=== PATIENT | female | born 1985 | race Caucasian/White ===

== ENCOUNTER 2018-11-24 00:17 | Emergency (ER) | payer BC, SELFPAY ==
[2018-11-24 00:19] VITALS: BP 145/90; PULSE 88; RESP 18; TEMP 36.7; O2SAT 97; BMI 34.5
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
[2018-11-24 01:00] LABS: Absolute Lymphocyte Count 1.37 X10^3/uL (0.83-4.51); Absolute Neutrophil Count 9.9 X10^3/uL (2.0-7.7); Basophil# 0.07 X10^3/uL; Basophil% 0.6 % (0-1); Eosinophil# 0.08 X10^3/uL; Eosinophils% 0.7 % (0-5); Hematocrit 34.4 % (37-47); Hemoglobin 11.5 g/dL (12.0-15.0); Lymphocyte # 1.37 X10^3/ul (4.0); Lymphocyte % 11.5 % (19-41); Mean Corp Hgb Conc 33.4 g/dL (32-36); Mean Corpuscular Hgb 29.9 pg (27.0-32.0); Mean Corpuscular Volume 89.6 fL (81-99); Mean Platelet Vol. 9.5 fl (6.2-12.0); Monocyte# 0.49 X10^3/uL; Monocyte% 4.1 % (0-10); NRBC Flagged by Analyzer 0 % (0-5); Neutrophil % 82.8 % (47-70); Platelet Count 325 K/mm3 (150-450); RBC Distribution Width CV 12.3 % (11.6-14.6); RBC Distribution Width SD 39.5 fl (35.1-43.9); Red Blood Count 3.84 M/mm3 (4.2-5.4)
[2018-11-24] MEDS: 0.9% Normal Saline 1,000 ML 999 ML IV (01:02)
[2018-11-24] MEDS: LORazepam 2 MG/ML Syringe 1 MG IV ×2 (01:02→01:39)
[2018-11-24 01:06] LABS: Internal QC Validated? YES +Cl - CLEAR BKGD; Pregnancy, Urine Negative Negative
[2018-11-24 01:14] LABS: Alcohol, Blood (Medical)-Serum < 3.0 mg/dL
[2018-11-24 01:15] LABS: Anion Gap 9 (5-15); BUN 34 mg/dL (7-18); BUN/Creat Ratio 27.9 RATIO (10-20); Calcium,Total 9.3 mg/dL (8.5-10.1); Chloride 104 mmol/L (98-107); Creatinine, Serum 1.22 mg/dL (0.55-1.02); EST Glomerular Filtration Rate 54 mL/min (>60); Est Glom Filt Rate - Afr Amer 65 mL/min (>60); Estimated Creatinine Clearance 53.75 ml/min; Glucose 100 mg/dL (74-106); Sodium Level 138 mmol/L (136-145)
[2018-11-24 01:21] LABS: Amphetamine Urine VISTA POSITIVE (<1000 ng/mL); Barbiturate Urine VISTA NEGATIVE (< 200 ng/mL); Benzodiazepine Urine VISTA NEGATIVE (< 200 ng/mL); Cocaine Urine VISTA POSITIVE (< 300 ng/mL); Ecstacy Urine VISTA POSITIVE (< 500 ng/mL); Methadone Urine VISTA NEGATIVE (< 300 ng/mL); PCP Urine VISTA NEGATIVE (< 25 ng/mL); THC Urine VISTA POSITIVE (< 50 ng/mL); Vista UDS pH Range 5
[2018-11-24 01:40] VITALS: BP 94/72; PULSE 78; RESP 18; O2SAT 100
[2018-11-24 03:19] VITALS: BP 107/70; PULSE 64; RESP 15; O2SAT 97
== END 2018-11-24 03:20 | disposition home or self-care (01) ==
PROVIDERS: Emergency Provider Emergency Medicine
DX: F19.159 Other psychoactive substance abuse with psychoactive substance-induced psychotic disorder, unspecified (principal); F15.10 Other stimulant abuse, uncomplicated; F14.10 Cocaine abuse, uncomplicated; F12.10 Cannabis abuse, uncomplicated; F11.10 Opioid abuse, uncomplicated; F17.200 Nicotine dependence, unspecified, uncomplicated
CPT/HCPCS: 80048; 80307; 80320; 81025; 85025; 96361; 96374; 99283; A4216; G0480

== ENCOUNTER 2025-02-06 16:01 | Emergency (ER) | payer SELFPAY ==
[2025-02-06 16:03] VITALS: BP 133/91; PULSE 64; RESP 18; TEMP 36.6; O2SAT 100; BMI 30.7
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
--- NOTE | 2025-02-06 16:45 | ED.RN ---
3431- THIS RN WAS AT BEDSIDE WITH PATIENT WHEN ASKED MULTIPLE TIMES BY [facility] TROOPER IF SHE WOULD CONSENT TO A URINE TEST. SHE AGREED ALL TIMES WHEN ASKED. PT IS CONTINUOUSLY PULLING OFF MONITORING LEADS BUT LEAVING THE END TIDAL CO2 IN PLACE FOR PROPER RESPIRATORY MANAGEMENT. IT IS DISCUSSED WITH PATIENT TO DO A STRAIGHT CATH FOR URINE. SHE AGREED. WHEN THIS RN ALONG WITH TWO OTHERS TO ASSIST PULLED PATIENTS PANTS DOWN TO DO THE CATH, A SMALL BAG OF BROWN POWDER WAS IN THE VAGINAL FOLDS. [facility] WAS CALLED INTO THE ROOM. BAG WAS GIVEN TO TROOPERS. STRAIGHT CATH WAS COMPLETED. PT TOLERATED WELL. SAMPLE OBTAINED GIVEN TO [facility]. PT COVERED BACK UP. WILL CONTINUE TO MONITOR. DR. COVINGTON UPDATED.
--- NOTE | 2025-02-06 16:50 | ED.RN ---
verbal orders for cardiac monitoring and capnography to monitor pt. Pt is continuously moving in bed, pulling off cardiac leads. Dr. Guzman aware of pt movements and inability to monitor effectively.
[2025-02-06 17:01] VITALS: BP 127/68; PULSE 69; RESP 12; O2SAT 96
--- NOTE | 2025-02-06 17:04 | CM.ED ---
Social work SW made aware of patient's presentation due to overdose via [facility] escort. SW presented to patient's room and stood outside room in the hallway with [facility] Security. [facility] and director consumer affairs Alyssa in patient's room. SW introduced self to Henrietta from [facility] who was also standing outside patient's room. [facility]; SW to remain available as needed. Anne Ocampo, RESPIRATORY SUPERVISOR, PATTERNMAKER HELPER
--- NOTE | 2025-02-06 17:12 | ED.RN ---
THIS RN HAD DIFFICULTY KEEPING SMALL FEMALE STRAIGHT CATH IN TO EMPTY BLADDER ALL THE WAY DUE TO PATIENT MOVING HER LEGS. THE CATHETER DISLODGED AFTER OBTAINING THE SMALL SAMPLE GIVEN TO [facility]. PT STATES SHE STILL HAS TO PEE. DIFFERENT STRAIGHT CATH KIT USED FOR SECOND STRAIGHT CATH WITH A MORE FLEXIBLE AND LONGER CATHETER. BLADDER WAS ABLE TO BE FULLY EMPTIED WITH THIS CATH KIT.
[2025-02-06 17:14] LABS: Mucous, Urine 0 SEEN /hpf (<or=2+); Red Blood Cells-Urine 0 SEEN /hpf (0-5)
[2025-02-06 17:19] LABS: Color, Urine Yellow (Yellow); Glucose, Dipstick Normal (Normal); Ketone-Dipstick 5 mg/dl (Negative); Leukocyte Esterase-Dipstick 25 /ul (Negative); Nitrite-Dipstick Negative (Negative); Occult Blood-Urine Negative /ul (Negative); Protein-Dipstick 30 mg/dl (Negative); Specific Gravity, Urine 1.025 (1.002-1.030)
[2025-02-06 17:20] LABS: Urine Bilirubin Dipstick 1 mg/dL (Negative)
[2025-02-06 17:29] LABS: Squamous Epithelial Cells - UA 0-5 SEEN /hpf (5-10)
[2025-02-06 17:30] LABS: Calcium Oxalate Crystals Ur 1+ /hpf (<or=2+); Fine Granular Cast- Urine 0-5 SEEN /lpf (0-5)
[2025-02-06 18:06] LABS: Barbiturate Urine NEGATIVE (< 200 ng/mL); Benzodiazepine Urine PRESUMPTIVE POSITIVE (< 200 ng/mL); PCP Urine NEGATIVE (< 25 ng/mL); THC Urine PRESUMPTIVE POSITIVE (< 50 ng/mL)
--- NOTE | 2025-02-06 18:18 | ED.RN ---
Update given to Mom, Shayla, about pt status with charge entryKRYSTAL Scruggs @ bedside. Informed that pt will be observed until able to be awake enough to ambulate, and reevaluated by Dr. Guzman. Instructed that pt would need a safe ride home when discharged if pt is able to wake up enough. Informed about pt resources if pt desires them for detox programs, these forms are left @ bedside by [facility]. Shayla agreeable with pt treatment plan. Pt is asleep, unable to obtain vitals due to pt movements when being touched. Pt is able to continue to keep capnography on so pt can be monitored. Shayla phone number in case pt needs ride home
[2025-02-06 19:17] VITALS: BP 112/74; PULSE 71; RESP 18; TEMP 36.6; O2SAT 97; O2SAT 99
== END 2025-02-06 19:59 | disposition home or self-care (01) ==
PROVIDERS: Emergency Provider Emergency Medicine; Visit Provider Emergency Medicine
DX: T40.1X4A Poisoning by heroin, undetermined, initial encounter (principal); F11.10 Opioid abuse, uncomplicated; R40.4 Transient alteration of awareness; F17.210 Nicotine dependence, cigarettes, uncomplicated
CPT/HCPCS: 80307; 81001; 99285; P9612

== ENCOUNTER 2025-02-09 10:17 | Inpatient (IN) | payer SELFPAY ==
[2025-02-09 10:19] VITALS: BP 118/87; PULSE 77; RESP 16; TEMP 36.9; O2SAT 93; BMI 30.9
--- NOTE | 2025-02-09 10:35 | EX.ED.SAOD ---
HPI History of Present Illness Chief Complaint: Substance Abuse Narrative Narrative: 39-year-old female presents with her parents for detox from heroin. She relates history that she had previous opiate addiction since 2009, and was supposed to go to rehab a long time ago. She has been in touch with [facility] who recommend that she present to the emergency department for detox. She relays remote history that she had a thoracentesis for fluid around her lung and had been given previous IV Dilaudid and opiates. That triggered her relapse and she states that she has been snorting heroin for the last 3 to 4 months. She states she last used 30 hours ago. She denies any fevers or chills, no nausea or vomiting, no abdominal cramping or pain. She states that [facility] recommended that she present for detox today. PFSH PFS Medical History no medical history Home Medications ?Medication ?Instructions ?Recorded ?Last Taken ?Type No Known/Unobtainable [No Known 05/11/13 Unknown History Home Medications] Allergy/AdvReac Type Severity Reaction Status Date / Time No Known Allergies Allergy Verified 02/09/25 10:18 Family History no significant family his Surgical History History of appendectomy Surgical History no surgical history Social History Smoking Status: Heavy Smoker (>10/day) ROS ROS ED ROS Narrative Review of systems negative for abdominal pain, nausea, vomiting, no fevers or chills. Last heroin use 30 hours ago. Denies intravenous use, states he usually snorts heroin. EXAM Physical Exam Narrative Exam Narrative: Afebrile. Vital signs noted. Nontoxic-appearing. Cardiovascular examination feels a regular rate and rhythm. Lungs are clear to auscultation bilaterally. Abdomen is soft and nontender without guarding or rebound. Positive bowel sounds. Neurological examination nonfocal, nonlateralizing. Almost tearful on examination. Const Vital Signs: 02/09/25 10:19 Temperature 98.4 F Temperature Source Oral Pulse Rate 77 Respiratory Rate 16 Blood Pressure 118/87 H Blood Pressure Mean 97 Pulse Ox 93 Oxygen Delivery Method Room Air MDM MDM MDM Narrative Medical decision making narrative: I do not feel differential diagnosis is applicable here. She is here for detox from heroin/opiates. She does admit that she does use cannabinoids as well. Her last menstrual period was a month to a month and a half ago, but she had history of irregular periods. Medical screening labs will be obtained. Patient will be discussed with the hospitalist for admission for detox from opiates. I reviewed her laboratory work and she has normal white count at 9.3 with hemoglobin 14.2, platelet count normal at 282. BUN 14 and creatinine slightly elevated at 1.53. This has been elevated when compared to prior labs as well however. Glucose 131 with a normal anion gap of 14. LFTs are grossly normal. Serum test is negative. Urine for drugs of abuse positive for benzodiazepines, fentanyl, and opiates. Compared to labs 3 days ago, this is the same. This point in time, I feel she is medically cleared for admission for detox. I discussed the patient with Dr. Motta who will admit the patient to the general medical floor. Disposition is admitted in stable condition. History & Record Review Discussion w/independent historian: Patient Additional record(s) reviewed:: Prior ED visit (Seen in the emergency department 3 days ago, found to have opiates intravaginally, did not want detox at that time) Lab Data Attestation: I reviewed the patient's lab results. Labs: Laboratory Results - last 24 hr 02/09/25 02/09/25 11:06 11:18 WBC 9.3 RBC 4.71 Hgb 14.2 Hct 43.1 MCV 91.5 MCH 30.1 MCHC 32.9 RDW Std Deviation 41.8 RDW Coeff of [place]tan 12.4 Plt Count 282 MPV 10.0 Immature Gran % (Auto) 0.100 Neut % (Auto) 66.6 Lymph % (Auto) 26.8 [place] % (Auto) 5.9 Eos % (Auto) 0.2 Baso % (Auto) 0.4 Absolute Neuts (auto) 6.2 Absolute Lymphs (auto) 2.50 Nucleated RBC % 0 Sodium 143 Potassium 3.4 Chloride 101 Carbon Dioxide 27.9 Anion Gap 14 BUN 14 Creatinine 1.53 H Estim Creat Clear Calc 56.14 Est GFR (MDRD) Non-Af 44 L BUN/Creatinine Ratio 8.8 L Glucose 131 H Calcium 10.1 Total Bilirubin 0.63 AST 24 ALT 20 Alkaline Phosphatase 78 Total Protein 8.4 Albumin 4.3 Globulin 4.0 Albumin/Globulin Ratio 1.1 Serum , Qual NEGATIVE Urine Opiates Screen PRESUMPTIVE POSITIVE U Buprenorphine Qual NEGATIVE Ur Oxycodone Screen NEGATIVE Urine Methadone Screen NEGATIVE Urine Fentanyl Screen PRESUMPTIVE POSITIVE Ur Barbiturates Screen NEGATIVE Ur Phencyclidine Scrn NEGATIVE Ur Amphetamines Screen NEGATIVE U Benzodiazepines Scrn PRESUMPTIVE POSITIVE Urine Cocaine Screen NEGATIVE U Cannabinoids Screen PRESUMPTIVE POSITIVE Ethyl Alcohol < 10.1 Management Discussion w/another healthcare provider: Hospitalist (Dr. Motta) Discharge Plan Dx/Rx/DC Orders Clinical Impression: Opiate abuse, continuous, Desire for detoxification, Opiate addiction, Elevated serum creatinine Disposition Disposition: Acute Care Hospital [facility]
[2025-02-09 11:15] LABS: Hematocrit 43.1 % (37-47); Hemoglobin 14.2 g/dL (12.0-15.0); Immature Granulocytes Count 0.010 X10^3/uL (0.0-0.0); Mean Corp Hgb Conc 32.9 g/dL (32-36); Mean Corpuscular Volume 91.5 fL (81-99); Mean Platelet Vol. 10.0 fl (6.2-12.0); NRBC Flagged by Analyzer 0 % (0-5); Platelet Count 282 K/mm3 (150-450); RBC Distribution Width CV 12.4 % (11.6-14.6); RBC Distribution Width SD 41.8 fl (35.1-43.9); Red Blood Count 4.71 M/mm3 (4.2-5.4); White Blood Count 9.3 K/mm3 (4.4-11.0)
[2025-02-09 11:18] VITALS: PULSE 81; RESP 18; O2SAT 97
--- OUTSIDE RECORDS SUMMARY | 2025-02-09 11:28 | XMS RPT_ITS | CCD ---
Author Organization [facility] Care Team Providers Care [employer] Teacher Name Role Phone Unavailable Primary Care Provider Unavailabl e No, Physician Primary Care Provider Unavailabl e NO, PHYSICIAN Primary Care Unavailable RANDY GARBER Attending Unavailable CARLOS VICENTE Attending Unavailab KASSANDRA Handy Admitting Unavailable NO, PHYSICIAN Primary Care Unavailable RANDY GARBER Referring Unavailable MAIKEL RODRIGUEZ Consulting Unavailable ERUM MARCELO Consulting Unavailable Sky FLORENTINO, [facility] Primary Care Provider MELIV SWANSON Referring Unavailable SKY, MELVI Primary Care Unavailable SWANSON, MELVI Primary Care Unavailable SWANSON, MELIV Attending Unavailable SWANSON, MELVI Primary Care Unavailable SWANSON, MELVI Referring Unavailable SWANSON, MELVI Attending Unavailable SWANSON, MELVI Referring Unavailable SWANSON, MELVI Primary Care Unavailable SWANSON, MELVI Primary Care Unavailable SWANSON, MELVI Referring Unavailable SWANSON, MELVI Primary Care Unavailable SWANSON, MELVI Referring Unavailable SWANSON, MELVI Primary Care Unavailable SWANSON, MELVI Referring Unavailable SWANSON, MELVI Primary Care Unavailable SWANSON, MELVI Attending Unavailable SWANSON, MELVI Primary Care Unavailable SWANSON, MELVI Referring Unavailable SWANSON, MELVI Referring Unavailable SWANSON, MELVI Primary Care Unavailable AUREA DOSS Attending Unavailable AUREA DOSS Referring Unavailable SWANSON, MELVI Primary Care Unavailable SWANSON, MELVI Primary Care Unavailable SWANSON, MELVI Referring Unavailable SWANSON, MELVI Primary Care Unavailable SWANSON, MELVI Attending Unavailable SWANSON, MELVI Primary Care Unavailable SWANSON, MELVI Referring Unavailable Allergies Allergy Classification Reported Allergen(s) Allergy Type Date of Onset Reaction(s) Facility (20 sources) Acetaminophen / HYDROcodone; Translations: [HYDROCODONE-ACETA MINOPHEN] Drug Allergy 02-01-2005 GI Upset [facility] Medications Current Medications Medication Drug Class(es) Dates Sig (Normalized) Sig (Original) amoxicillin 875 mg / clavulanate 125 mg oral tablet (20 sources) Penicillin-class Antibacterial Start: 11-06-2024 End: 11-09-2024 take 1 tablet by mouth every twelve hours amoxicillin-clav ulanate potassium (AUGMENTIN) 875-125 mg per tablet Take 1 tablet by mouth every 12 hours for 3 days. 11/06/2024 11/09/2024 Active Start: 10-09-2024 End: 10-30-2024 take 1 tablet by mouth every twelve hours amoxicillin-clavulanate potassium (AUGMENTIN) 875-125 mg per tablet Indications: Empyema (HCC) Take 1 tablet by mouth every 12 hours for 21 days. 42 tablet 10/09/2024 10/30/2024 Active Start: 09-16-2024 End: 10-07-2024 take 1 tablet by mouth twice daily amoxicillin-clavulanate potassium (AUGMENTIN) 875-125 mg per tablet Indications: Pleural effusion Take 1 tablet by mouth two times a day. 09/16/2024 10/07/2024 Active cyclobenzaprine hydrochloride 5 mg oral tablet (20 sources) Muscle Relaxant Start: 09-16-2024 End: 09-26-2024 take 1 tablet by mouth three times daily as needed for muscle spasms cyclobenzaprine (FLEXERIL) 5 MG tablet Take 1 (one) tablet (5 mg total) by mouth 3 (three) times a day as needed for muscle spasms . 30 tablet 09/16/2024 3:28 PM EDT 09/16/2024 09/26/2024 Active Start: 09-02-2024 End: 11-06-2024 take 1 tablet by mouth every eight hours as needed cyclobenzaprine (FLEXERIL) 10 mg tablet Take 1 tablet by mouth three times a day as needed. 15 tablet 09/02/2024 11/06/2024 Discontinued iv contrast (will be provided with radiology test) (6 sources) Start: 10-10-2024 End: 10-11-2024 iv contrast (will be provided with radiology test) CT Chest PE -Inject, intravenously, once for 1 dose.No IV access, insert saline lock prior to the beginning of sedation, infusion, injection of imaging exam. Discontinue saline lock post exam. If Pt. has a central line or IVAD, may access for administration according to line specific nursing protocol. Once exam is complete flush line and de-access according to line specific nursing protocol in the CT contrast administration guidelines link. 1 each 10/10/2024 10/11/2024 Active 24 hr nicotine 0.583 mg/hr transdermal system (20 sources) Cholinergic Nicotinic Agonist Start: 10-02-2024 End: 12-31-2024 apply 1 dose transdermal route every twenty-four hours nicotine (NICODERM) 14 mg/24 hr Indications: Tobacco abuse Apply 1 patch as directed every 24 hours. 30 patch 2 10/02/2024 12/31/2024 Active Start: 09-09-2024 End: 09-16-2024 apply 1 dose transdermal route once daily 1 patch, Transdermal, Administer over 24 Hours, Daily, First dose on 09/09/24 at 0515, U/P Listed Hazardous Drug. Waste Must Be Disposed in [employer] Waste Container Completed/Discontinued Medications Medication Drug Class(es) Dates Sig (Normalized) Sig (Original) acetaminophen 325 mg / oxyCODONE hydrochloride 5 mg oral tablet (9 sources) Opioid Agonist Start: 09-16-2024 End: 10-02-2024 oxyCODONE-acetamino phen (PERCOCET) 5-325 mg tablet 09/16/2024 10/02/2024 Discontinued Start: 09-16-2024 End: 09-21-2024 oxyCODONE-acetaminophen (PER COCET) 5-325 mg per tablet Indications: Parapneumonic effusion Take 1 (one) tablet by mouth every 6 (six) hours as needed (Days supply per fill: 5) . 15 tablet 09/16/2024 3:28 PM EDT 09/16/2024 09/21/2024 Active Start: 09-12-2024 End: 09-12-2024 take 1 tablet by mouth once 1 tablet, Oral, Once, On [facility] 09/12/24 at 2300, For 1 dose Start: 09-12-2024 End: 09-16-2024 take 1-2 tablets by mouth every four hours as needed 1-2 tablet, Oral, Every 4 hours PRN (may repeat), moderate to severe pain, Starting on [facility] 09/12/24 at 2155, Initiate with 1 tablet oral every 4 hours prn moderate to severe pain. For unrelieved pain, may repeat 1 tablet within 60 minutes of initial dose. If pain is RELIEVED after repeat dose, change to two tablets of 5/325 mg every 4 hours prn moderate to severe pain. If pain is UNrelieved after repeat dose, or patient requires dose reduction, call physician. Start: 09-11-2024 End: 09-11-2024 take 1 tablet by mouth once 1 tablet, Oral, Once, On Mon09/11/24 at 2345, For 1 dose Start: 09-09-2024 End: 09-12-2024 take 2 tablets by mouth every six hours as needed 2 tablet, Oral, Every 6 hours PRN, moderate to severe pain, Starting on Mon09/11/24 at 2249 alteplase (INTRAPLEURAL) 10 mg/30 mL syringe (4 sources) Start: 09-15-2024 End: 09-15-2024 10 mg, Intrapleural, Once, O n [place] 09/15/24 at 1000, For 1 dose, For INTRAPLEURAL USE ONLY by PHYSICIAN. Start: 2024 End: 2024 10 mg, Intrapleural, Once, O n [facility] 09/13/24 at 1200, For 1 dose, For INTRAPLEURAL USE ONLY by PHYSICIAN. Start: 09-12-2024 End: 09-12-2024 10 mg, Intrapleural, Once, O n [facility] 09/12/24 at 1200, For 1 dose, For INTRAPLEURAL USE ONLY by PHYSICIAN. Start: 09-11-2024 End: 09-11-2024 10 mg, Intrapleural, Once, O n [facility] 09/11/24 at 1230, For 1 dose, For INTRAPLEURAL USE ONLY by PHYSICIAN. aluminum hydroxide 40 mg/ml / magnesium hydroxide 40 mg/ml / simethicone 4 mg/ml oral suspension (1 source) Start: 09-07-2024 End: 09-16-2024 take 30 mL by mouth every four hours as needed cefTRIAXone 2000 mg injection (1 source) Cephalosporin Antibacterial Start: 09-08-2024 End: 09-16-2024 take 2000 mg intravenously every twenty-four hours 2,000 mg, Intravenous, at 100 mL/hr, Every 24 hours, First dose on Mon09/08/24 at 1500, Indication: CAP clobetasol propionate 0.5 mg/ml medicated shampoo (4 sources) Corticosteroid Start: 04-16-2018 End: 10-02-2024 Clobetasol Propionate 0.05 % sham Indications: Atopic dermatitis of scalp Apply 1 application to affected area once daily. For scalp 1 Bottle 1 04/16/2018 10/02/2024 Discontinued docusate sodium 50 mg / sennosides, long term 8.6 mg oral tablet (2 sources) Start: 09-07-2024 End: 09-16-2024 take 1 tablet by mouth twice daily 1 tablet, Oral, 2 times daily, First dose on [place] 09/12/24 at 2245, NOT for abdominal surgery patients. Hold for loose stools. Do Not Crush or Chew if administering orally due to bitter taste. May be crushed if given via tube. dornase (PULMOZYME) 5 mg/30 mL intrapleural syringe (4 sources) Start: 09-15-2024 End: 09-15-2024 5 mg, Intrapleural, Once, On Mon09/15/24 at 1000, For 1 dose, FOR INTRAPLEURAL USE ONLY BY PHYSICIAN Start: 2024 End: 2024 5 mg, Intrapleural, Once, On Mon09/13/24 at 1200, For 1 dose, FOR INTRAPLEURAL USE ONLY BY PHYSICIAN Start: 09-12-2024 End: 09-12-2024 5 mg, Intrapleural, Once, On [place] 09/12/24 at 1100, For 1 dose, FOR INTRAPLEURAL USE ONLY BY PHYSICIAN Start: 09-11-2024 End: 09-11-2024 5 mg, Intrapleural, Once, On Mon09/11/24 at 1230, For 1 dose, FOR INTRAPLEURAL USE ONLY BY PHYSICIAN 0.4 ml enoxaparin sodium 100 mg/ml prefilled syringe (1 source) Low Molecular Weight Heparin Start: 09-07-2024 End: 09-16-2024 inject 40 mg by subcutaneous injection once daily 40 mg, Subcutaneous, Daily, First dose on 09/07/24 at 1600, Administer in abdomen unless otherwise directed by prescriber. Notify physician if patient refuses., Indication: VTE Prophylaxis 12 hr guaiFENesin 600 mg extended release oral tablet (20 sources) Start: 09-16-2024 End: 10-16-2024 take 1 tablet by mouth every twelve hours, then take 1 tablet by mouth every twelve hours guaiFENesin (MUCINEX) 600 mg 12 hr tablet Indications: Pleural effusion Take 600 mg by mouth every 12 hours. 09/16/2024 10/16/2024 Discontinued Start: 09-16-2024 End: 10-16-2024 take 1 tablet by mouth once in the evening guaiFENesin (MUCINEX) 600 mg 12 hr tablet Take 1 (one) tablet (600 mg total) by mouth every 12 (twelve) hours . 60 tablet 09/16/2024 3:28 PM EDT 09/16/2024 10/16/2024 Active 0.5 ml HYDROmorphone hydrochloride 1 mg/ml prefilled syringe (4 sources) Opioid Agonist Start: 2024 End: 2024 1 mg, Intravenous, Once, On Mon09/13/24 at 1130, For 1 dose, Lytic therapy scheduled for tentatively 12 Start: 09-11-2024 End: 09-16-2024 take 1 mg intravenously every two hours as needed 1 mg, Intravenous, Every 2 hour PRN, moderate to severe pain, Starting on Mon09/11/24 at 2249 Start: 09-08-2024 End: 09-11-2024 take 1 mg intravenously every three hours as needed 1 mg, Intravenous, Every 3 hours PRN, moderate to severe pain, Starting on 09/08/24 at 1010 Start: 09-08-2024 End: 09-08-2024 1 mg, Intravenous, Once, On Mon09/08/24 at 0945, For 1 dose hydrOXYzine hydrochloride 25 mg oral tablet (1 source) Antihistamine Start: 09-09-2024 End: 09-16-2024 take 25 mg by mouth three times daily as needed for anxiety 25 mg, Oral, 3 times daily PRN, anxiety, Starting on 09/09/24 at 0739 iopamidoL (ISOVUE-370) 370 mg iodine /mL (76 %) injection 75 mL (1 source) Start: 09-14-2024 End: 09-14-2024 75 mL, Intravenous, Once in imaging, contrast, Starting on 09/14/24 at 1244, For 1 dose 1 ml ketorolac tromethamine 30 mg/ml injection (2 sources) Nonsteroidal Anti-inflammatory Drug, Cyclooxygenase Inhibitor Start: 09-12-2024 End: 09-12-2024 15 mg, Intravenous, Once, On [place] 09/12/24 at 2230, For 1 dose Start: 09-07-2024 End: 09-09-2024 take 15 mg intravenously every six hours as needed for pain 15 mg, Intravenous, Every 6 hours PRN, mild pain, Starting on 09/07/24 at 1517, For 48 hours lidocaine 0.04 mg/mg medicated patch (2 sources) Antiarrhythmic, Amide Local Anesthetic Start: 09-11-2024 End: 09-16-2024 apply 1 dose transdermal route once daily 1 patch, Transdermal, Administer over 12 Hours, Daily, First dose on Mon09/11/24 at 1030, Apply to right neck for 12 hours, then remove patch for 12 hours. Start: 09-08-2024 End: 09-08-2024 10 mL, Other, Once, On Sun at 1300, For 1 dose 100 ml metroNIDAZOLE 5 mg/ml injection (1 source) Nitroimidazole Antimicrobial Start: 09-07-2024 End: 09-16-2024 take 500 mg intravenously every eight hours naloxone (NARCAN) injection 0.1 mg (1 source) Start: 09-12-2024 End: 09-16-2024 naloxone (NARCAN) injection 0.1 mg naproxen 500 mg oral tablet (15 sources) Nonsteroidal Anti-inflammatory Drug Start: 09-02-2024 End: 10-09-2024 take 1 tablet by mouth every twelve hours as needed naproxen (NAPROSYN) 500 mg tablet Take 1 tablet by mouth two times a day as needed (FOR PAIN - TAKE WITH FOOD.). 28 tablet 09/02/2024 10/09/2024 Discontinued End: 09-02-2024 NAPROXEN ORAL Take by mouth. 09/02/2024 Discontinued ondansetron (ZOFRAN-ODT) disintegrating tablet 4 mg (1 source) Start: 09-07-2024 End: 09-16-2024 take 1 tablet by mouth every six hours as needed for nausea and vomiting ondansetron (ZOFRAN-ODT) disintegrating tablet 4 mg oxyCODONE hydrochloride 5 mg oral tablet (1 source) Opioid Agonist Start: 09-07-2024 End: 09-08-2024 take 5-10 mg by mouth every four hours as needed 5-10 mg, Oral, Every 4 hours PRN (may repeat), moderate to severe pain, Starting on Mon09/07/24 at 1519, Initiate with 5 mg oral every 4 hours prn moderate to severe pain. For unrelieved pain, may repeat 5 mg within 60 minutes of initial dose. If pain is RELIEVED after repeat dose, change to 10 mg every 4 hours prn moderate to severe pain. If pain is UNrelieved after repeat dose, or patient requires dose reduction, call physician. polyethylene glycol [phone] mg powder for oral solution (1 source) Osmotic Laxative Start: 09-08-2024 End: 09-16-2024 17 g, Oral, Daily, First dose on Mon09/08/24 at 1100 100 ml potassium chloride 0.2 meq/ml injection (1 source) Start: 09-10-2024 End: 09-10-2024 take 20 mEq intravenously every two hours 20 mEq, Intravenous, at 50 mL/hr, Every 2 hours, First dose on Mon09/10/24 at 0530, For 2 doses, For Non-Critical Care Patient give potassium chloride (KCL) 20 mEq IVPB x 2 bags over 2 hours each for a total dose of 40 mEq VESICANT predniSONE 20 mg oral tablet (1 source) Start: 09-07-2024 End: 09-11-2024 take 40 mg by mouth once daily at breakfast 40 mg, Oral, Daily with breakfast, First dose on Mon09/07/24 at 1700, For 5 doses 1000 ml sodium chloride 9 mg/ml injection (4 sources) Start: 09-11-2024 End: 09-11-2024 take 75 mL intravenously every hour 75 mL/hr, Intravenous, Continuous, Starting on Mon09/11/24 at 0130, Pre-Procedure Start: 09-07-2024 End: 09-08-2024 take 75 mL intravenously every hour 75 mL/hr, Intravenous, Continuous, Starting on Mon09/07/24 at 1700, For 12 hours Start: 09-07-2024 End: 09-16-2024 sodium chloride (PF) (NS) fl ush 5 mL traZODone hydrochloride 50 mg oral tablet (1 source) Serotonin Reuptake Inhibitor Start: 09-07-2024 End: 09-16-2024 50 mg, Oral, Nightly PRN, sleep, Starting on Mon09/07/24 at 1501, May repeat times 1 in 30 minutes if still awake. Problems Active Problems Problem Classification Problem Date Documented Date Episodic/Chronic Deficiency and other anemia (3 sources) Anemia; Translations: [Anemia, unspecified] 10-02-2024 Episodic Headache; including migraine (4 sources) Headache; Translations: [Headache, unspecified headache type] 10-16-2024 Episodic Headache; including migraine (1 source) Headache; including migraine; Translations: [Headache, unspecified headache type] Onset: 10-16-2024 Immunizations and screening for infectious disease (1 source) Encounter for immunization; Translations: [Encounter for immunization] Onset: 11-06-2024 Episodic Malaise and fatigue (19 sources) Asthenia; Translations: [Fatigue] Onset: 10-03-2024 10-02-2024 Episodic Other connective tissue disease (4 sources) Disorder of skeletal muscle; Translations: [Other symptoms and signs involving the musculoskeletal system] 10-02-2024 Episodic Other lower respiratory disease (4 sources) Chest pain on breathing; Translations: [Chest pain on breathing] 10-10-2024 Episodic Other lower respiratory disease (2 sources) Pleuritic pain; Translations: [Pleurodynia] 11-06-2024 Episodic Other lower respiratory disease (1 source) Pleurodynia; Translations: [Pleuritic chest pain] Onset: 11-06-2024 Episodic Other lower respiratory disease (1 source) Chest pain on breathing; Translations: [Chest pain on breathing] Onset: 10-10-2024 Episodic Pleurisy; pneumothorax; pulmonary collapse (20 sources) Empyema of pleura; Translations: [Pyothorax without fistula] Onset: 09-07-2024 09-16-2024 Episodic Pneumonia (except that caused by tuberculosis or sexually transmitted disease) (9 sources) Pleural effusion associated with pulmonary infection; Translations: [Pneumonia, unspecified organism] Onset: 09-07-2024 09-16-2024 Episodic Residual codes; unclassified (4 sources) Tobacco user; Translations: [Tobacco use] 10-02-2024 Episodic Residual codes; unclassified (1 source) Tobacco use; Translations: [Tobacco abuse] Onset: 10-16-2024 Episodic Screening and history of mental health and substance abuse codes (2 sources) Encounter for screening examination for other mental health and behavioral disorders; Translations: [Encounter for screening for depression] Onset: 11-06-2024 Episodic Viral infection (20 sources) Genital herpes simplex; Translations: [Herpesviral infection of urogenital system, unspecified] Onset: 07-10-2012 07-10-2012 Chronic Past or Other Problems Problem Classification Problem Date Documented Date Episodic/Chronic Deficiency and other anemia (2 sources) Anemia, unspecified; Translations: [Anemia, unspecified type] Onset: 10-02-2024 Episodic Mood disorders (1 source) Mood disorders Onset: 09-14-2024 09-14-2024 Other connective tissue disease (1 source) Other symptoms and signs involving the musculoskeletal system; Translations: [Muscular deconditioning] Onset: 10-03-2024 Episodic Other screening for suspected conditions (not mental disorders or infectious disease) (8 sources) Patient encounter status; Translations: [Encounter for screening, unspecified] Onset: 10-02-2024 10-02-2024 Episodic Spondylosis; intervertebral disc disorders; other back problems (2 sources) Backache; Translations: [Dorsalgia, unspecified] Onset: 09-02-2024 09-02-2024 Episodic Unclassified (3 sources) Patient encounter status 10-02-2024 Results Test Name Value Interpretation Reference Range Facility [facility] 12-30-2024 [facility] GRICEL PATEL ([id number]) 1985 F Date Time Provider Department 12/30/24 MELVI SWANSON [facility] During your visit today, we recorded the following information about you: DENISE ARTHUR 12/30/2024 2:34 PM Signed Patient scheduled for nurse visit 01/13/25 to receive HPV vaccine. Please place order at this time. Denise Arthur LPN Allergies As of Date: 12/30/2024 Noted Allergy Reaction VICODIN (HYDROCODONE-ACETAMINO PHE*02/01/2005 8 - GI Upset Comments: Patient c/o nausea and dizziness Date Reviewed: 11/06/2024 Reviewed by: Cecile Curry LPN - Fully Assessed Reason for Visit: Orders [681] Primary Visit Diagnosis:Need for vaccination [Z23] Order(s):HPV VACCINE, 9-VALENT (GARDASIL 9) [[id number]] Order #: [id number] HPV VACCINE, 9-VALENT (GARDASIL 9) [[id number]] Order #: [id number] FUTURE Prescriptions as of 12/31/2024 - nicotine (NICODERM) 14 mg/24 hr Apply 1 patch as directed every 24 hours. Problem List As Of Date 12/30/2024 Noted Resolved Genital herpes [A60.00] 07/10/2012 Encounter Status:Closed by DENISE [facility]UR [facility] Nurse Visit ([facility]) GRICEL PATEL ([id number]) 1985 F Date Time Provider Department 11/12/24 3:30 PM [facility] During your visit today, we recorded the following information about you: DENISE ARTHUR 11/12/2024 3:50 PM Signed Patient presents for TDAP, HPV, and Pneumococcal vaccines. Denies any problems at this time. Tolerated injections well. Denise Arthur LPN Allergies As of Date: 11/12/2024 Noted Allergy Reaction VICODIN (HYDROCODONE-ACETAMINO PHE*02/01/2005 8 - GI Upset Comments: Patient c/o nausea and dizziness Date Reviewed: 11/06/2024 Reviewed by: Cecile Curry LPN - Fully Assessed Reason for Visit: Imm/Inj [58] Primary Visit Diagnosis:Encounter for immunization [Z23] Prescriptions as of 11/12/2024 - nicotine (NICODERM) 14 mg/24 hr Apply 1 patch as directed every 24 hours. Problem List As Of Date 11/12/2024 Noted Resolved Genital herpes [A60.00] 07/10/2012 Encounter Status:Closed by DENISE ARTHUR on 11/12/24 Normal [facility] CBC panel Auto (Bld)on 11-06 Erythrocyte distribution width (RBC) [Ratio] 13.2 % 11.5 - 15.0 % [facility] Hematocrit (Bld) [Volume fraction] 41.4 % 36.0 - 46.0 % [facility] Hemoglobin (Bld) [Mass/Vol] 13.7 g/dL 11.5 - 15.5 g/dL [facility] Interpretation and review of laboratory results Normal [facility] MCH (RBC) [Entitic mass] 30.2 pg 26.0 - 34.0 pg [facility] MCHC (RBC) [Mass/Vol] 33.1 g/dL 30.5 - 36.0 g/dL [facility] MCV (RBC) [Entitic vol] 91.4 fL 80.0 - 100.0 fL [facility] Nucleated RBC (Bld) [#/Vol] NINF [facility] Platelet mean volume (Bld) [Entitic vol] 10.5 fL 9.0 - 12.7 fL [facility] Platelets (Bld) [#/Vol] 272 10*3/uL [facility] RBC (Bld) [#/Vol] 4.53 10*6/uL 3.90 - 5.2 0 m/uL [facility] WBC (Bld) [#/Vol] 7.24 10*3/uL [facility] Erythrocyte distribution width (RBC) [Ratio] 13.2 % Normal 11.5-15.0 [facility] Comment on above: Order Comment: Speci men Type: BLOOD SPECIMENOrdering Facility: [facility] Address: [address] [place] [address] Performed By: #### 5 8410-2, 9517-7 ####[facility] [id number] [place] [address] [place] Hematocrit (Bld) [Volume fraction] 41.4 % Normal 36.0-46.0 [facility] Comment on above: Order Comment: Speci men Type: BLOOD SPECIMENOrdering Facility: [facility] Address: [address] [place] [address] Performed By: #### 5 8410-2, 4537-7 ####[facility] [id number] [place] [address] [place] Hemoglobin (Bld) [Mass/Vol] 13.7 g/dL Normal 11.5-15.5 [facility] Comment on above: Order Comment: Speci men Type: BLOOD SPECIMENOrdering Facility: [facility] Address: [address] [place] [address] Performed By: #### 5 8410-2, 453-7 ####[facility] [id number] [place] [address] [place] MCH (RBC) [Entitic mass] 30.2 pg Normal 26.0-34.0 [facility] Comment on above: Order Comment: Speci men Type: BLOOD SPECIMENOrdering Facility: [facility] Address: [address] [place] [address] Performed By: #### 5 8410-2, 4536-7 ####[facility] [id number] [place] [address] [place] MCHC (RBC) [Mass/Vol] 33.1 g/dL Normal 30.5-36.0 [facility] Comment on above: Order Comment: Speci men Type: BLOOD SPECIMENOrdering Facility: [facility] Address: [address] [place] [address] Performed By: #### 5 8410-2, 7-7 ####[facility] [id number] [place] [address] [place] MCV (RBC) [Entitic vol] 91.4 fL Normal 80.0-100.0 [facility] Comment on above: Order Comment: Speci men Type: BLOOD SPECIMENOrdering Facility: [facility] Address: [address] [place] [address] Performed By: #### 5 8410-2, 7-7 ####[facility] [id number] [place] [address] [place] Nucleated RBC (Bld) [#/Vol] 10*3/uL Normal <0.01 [facility] Comment on above: Order Comment: Speci men Type: BLOOD SPECIMENOrdering Facility: [facility] [facility] Address: [address] [place] [address] Performed By: #### 5 8410-2, 4536-7 ####[facility] [id number] [place] [address] [place] Platelet mean volume (Bld) [Entitic vol] 10.5 fL Normal 9.0-12.7 [facility] Comment on above: Order Comment: Speci men Type: BLOOD SPECIMENOrdering Facility: [facility] Address: [address] [place] [address] Performed By: #### 5 8410-2, 4536-7 ####[facility] [id number] [place] [address] [place] Platelets (Bld) [#/Vol] 272 10*3/uL Normal 150-400 [facility] Comment on above: Order Comment: Speci men Type: BLOOD SPECIMENOrdering Facility: [facility] Address: [address] [place] [address] Performed By: #### 5 8410-2, 4536-7 ####[facility] [id number] [place] [address] [place] RBC (Bld) [#/Vol] 4.53 10*6/uL Normal 3.90-5.20 [facility] Comment on above: Order Comment: Speci men Type: BLOOD SPECIMENOrdering Facility: [facility] Address: [address] [place] [address] Performed By: #### 5 8410-2, 4537-7 ####[facility] [id number] [address] [address] [place] WBC (Bld) [#/Vol] 7.24 10*3/uL Normal 3.70-11.00 [facility] Comment on above: Order Comment: Speci men Type: BLOOD SPECIMENOrdering Facility: [facility] Address: [address] [place] [id number] Performed By: #### 5 8410-2, 45377 ####[facility] [id number] [address] [address] [place] CNOVon 11-06-2024 CNOV Office Visit (KRISWS ) GRICEL PATEL ([id number]) 1985 F Date Time Provider Department 11/06/24 1:40 PM MELVI SWANSON During your visit today, we recorded the following information about you: Temperature Pulse Respiration Blood pressure 99.4 degrees 89/minute 16/minute 100/72 Weight 91.9 kg Melvi Swanson MD 11/06/2024 7:37 PM Signed Family Medicine OUTPATIENT VISIT November 06, 2024 CC: pleuritic chest pain HPI: 39 year old female patient with a history of Empyema and fatigue with deconditioning s/p hospital stay. Presenting for follow up. Not Shortness of Breath but feeling she cannot take a full deep breath due to a sharp pain at her right lower back where chest tube was when she takes a deep breath. No fever. Some chills x 3-4 days. Fatigue is so so. Has not seen physical therapy yet. Missed her appointment. Able to go to the store now but is tired thereafter. Did go on a 1 hr 45 minute shopping trip. Has 2-3 days left of augmentin. Smoking 5 cigarettes per day now and quit vaping completely. Is getting dental work tomorrow, having 5 teeth removed. Smoked since age 15. Pack a day average. Review of Systems PAIN ASSESSMENT: Negative for pain, history of chronic pain, or current treatment for a chronic pain condition. GENERAL: No weight loss, or fevers HEENT: Negative for frequent or significant headaches RESPIRATORY: Negative for cough, wheezing, shortness of breath CARDIOVASCULAR: Negative for chest pain, palpitations, PND or orthopnea GI: No nausea, vomiting, or diarrhea or abdominal pain. No [place] bleeding or melana : No history of dysuria, frequency, urgency, or change in urine appearance NEURO: No history of headaches, numbness, weakness, or changes to vision or hearing Health maintenance: Hepatitis C Screening Never done HIV Screening Never done DTaP,Tdap,Td Vaccine(1 - Tdap) Never done Hepatitis B Vaccine(1 of 3 - 19+ 3-dose series) Never done Pneumococcal Vaccine(1 of 2 - PCV) Never done HPV Vaccine(1 - 3-dose SCDM series) Never done Cervical Cancer Screening due on 07/11/2017 Mammogram Screening Never done Allergies: ALLERGIES Allergen Reactions Vicodin [Hydrocodon* GI Upset Patient c/o nausea and dizziness Medications: nicotine (NICODERM) 14 mg/24 hr Apply 1 patch as directed every 24 hours. amoxicillin-clavulanat e potassium (AUGMENTIN) 875-125 mg per tablet Take 1 tablet by mouth every 12 hours for 3 days. Past Medical History: PAST MEDICAL HISTORY Diagnosis Date Infectious mononucleosis Mononucleosis Tobacco abuse since age 15, pack a day Urinary tract infection, site not specified Social History: SOCIAL HISTORY[1] Family History: Family History Problem Relation Age of Onset Heart Paternal Grandmother HEART PROBLEMS Stroke Maternal Grandmother Diabetes Maternal Grandfather Diabetes Paternal Grandmother Breast Cancer Paternal Aunt None Father None Sister None Brother None Mother BP 100/72 Pulse 89 Temp 37.4 ?C (99.4 ?F) (Temporal) Resp 16 Wt 91.9 kg (202 lb 9.6 oz) LMP 03/11/2024 (Approximate) SpO2 98% General: Awake, alert, not in acute distress LIFE TRAINER: Answering questions appropriately. No abnormal posturing or positioning. Speech is normal. Strength grossly intact. RESP: Diminished Right lower without added sounds. No collections beneath well healed wound at site of right chest drain, no drainage or erythema. No increased WOB on room air. CVS: RRR, No murmur. Pulses 2+. GI: Abdomen is soft, non distended, non tender. No masses or hepatomegaly appreciated. Skin/Other: No rashes or lesions. HEENT: pupils equal Extremities: No peripheral edema, swelling or erythema of lower extremities. Labs: Reviewed the following: Pertinent labs as outlined above Latest Ref Rn 10/16/2024 WBC 3.70 - 11.00 k/uL 7.72 RBC 3.90 - 5.20 m/uL 5.06 Hemoglobin 11.5 - 15.5 g/dL 14.8 Hematocrit 36.0 - 46.0 % 45.5 MCV 80.0 - 100.0 fL 89.9 MCH 26.0 - 34.0 pg 29.2 MCHC 30.5 - 36.0 g/dL 32.5 RDW-CV 11.5 - 15.0 % 13.8 Platelet Count 150 - 400 k/uL 402 (H) MPV 9.0 - 12.7 fL 9.3 Neut% % 68.1 Abs Neut (ANC) 1.45 - 7.50 k/uL 5.26 Lymph% % 25.9 Abs Lymph 1.00 - 4.00 k/uL 2.00 [place]% % 4.7 Abs [place] <0.87 k/uL 0.36 Eosin% % 0.1 Abs Eosin <0.46 k/uL <0.03 Baso% % 0.8 Abs Baso <0.11 k/uL 0.06 Immature Gran % % 0.4 IMMATURE GRANS (ABS) <0.10 k/uL 0.03 NRBC /100 WBC 0.0 Absolute nRBC <0.01 k/uL <0.01 DTYPE Auto Albumin 3.9 - 4.9 g/dL 4.4 Calcium 8.5 - 10.2 mg/dL 10.3 (H) Phosphorus 2.7 - 4.8 mg/dL 3.6 Glucose 74 - 99 mg/dL 111 (H) BUN 7 - 21 mg/dL 14 Creatinine 0.58 - 0.96 mg/dL 0.90 Sodium 136 - 144 mmol/L 137 Potassium 3.7 - 5.1 mmol/L 4.4 Chloride 98 - 107 mmol/L 97 (L) CO2 22 - 30 mmol/L 25 Anion Gap 8 - 15 mmol/L 15 eGFR >=60 mL/min/1.73m? 83 Magnesium 1.7 - 2.3 mg/ (more content not included)... Normal [facility] CRP SerPl-mCncon 11-06-2024 CRP [Mass/Vol] mg/L Normal <0.9 [facility] Comment on above: Order Comment: Speci men Type: BLOOD SPECIMENOrdering Facility: [facility] Address: [address] [place] [address] Performed By: #### 1 988-5, 2276-4 ####[facility] [id number] [place] [address] [place] ESR Westergren method (Bld) [Velocity]on 11-06-2024 ESR (Bld) [Velocity] 10 mm/h [facility] Interpretation and review of laboratory results Normal [facility] ESR (Bld) [Velocity] 10 mm/h Normal 0-20 [facility] Comment on above: Order Comment: Speci men Type: BLOOD SPECIMENOrdering Facility: [facility] Address: [address] [place] [address] Performed By: #### 5 8410-2, 4537-7 ####[facility] [id number] [place] [address] [place] Ferritin SerPl-mCncon 2024 Ferritin [Mass/Vol] 145.0 ng/mL Normal 14.7-205.1 [facility] Comment on above: Order Comment: Speci men Type: BLOOD SPECIMENOrdering Facility: [facility] Address: [address] [place] [address] Performed By: #### 1 988-5, 0346-4 ####[facility] [id number] [place] [id number] [place] HBV core Ab Ser Qlon 025 HBV core Ab Ql (S) Negative Normal Negative [facility] Comment on above: Order Comment: Speci men Type: BLOOD SPECIMENOrdering Facility: [facility] Address: [address] [place] [address] Result Comment: No e vidence of current or past infection with Hepatitis B virus. Should recent infection be suspected, repeat testing may be considered 3-4 weeks after this draw. Performed By: #### 5 195-3, 89568-6, 35840-1, 07563-2 ####[facility] [id number] [address] [address] [place] HBV surface Ab Ql (S)on 10-25 HBV surface Ab Qn (S) 24.87 mIU/mL Normal [facility] Comment on above: Order Comment: Speci men Type: BLOOD SPECIMENOrdering Facility: [facility] Address: [address] [place] [address] Result Comment: <8 m IU/mL: No serological evidence of immunity to Hepatitis B Virus. >/= 8 to <12 mIU/mL: No serological evidence of immunity to Hepatitis B Virus. >/= 12 mIU/mL: Consistent with serological evidence of immunity to Hepatitis B Virus. Performed By: #### 5 195-3, 99749-2, 55620-5, 14821-9 ####[facility] [id number] [address] [address] [place] HBV surface Ab Ser Qlon 10-25 HBV surface Ab Ql (S) Positive Normal [facility] Comment on above: Order Comment: Speci men Type: BLOOD SPECIMENOrdering Facility: [facility] Address: [address] [place] [address] Result Comment: Cons istent with serological evidence of immunity to Hepatitis B Virus. Performed By: #### 5 195-3, 35548-2, 85097-6, 43746-9 ####[facility] [id number] [address] [address] [place] HBV surface Ag Ser Qlon 10-25 HBV surface Ag Ql (S) Negative Normal Negative [facility] Comment on above: Order Comment: Speci men Type: BLOOD SPECIMENOrdering Facility: [facility] Address: [address] [place] [address] Performed By: #### 5 195-3, 87644-9, 18223-2, 25208-8 ####[facility] [id number] [place] [address] [place] HCV Ab Ser Qlon 11-06-2024 HCV Ab Ql (S) Negative Normal Negative [facility] Comment on above: Order Comment: Speci men Type: BLOOD SPECIMEN [facility] Address: [address] [place] [address] Result Comment: The result suggests no evidence of infection with Hepatitis C virus. Should recent infection be suspected, repeat testing may be considered 4-6 weeks after this draw. Performed By: #### 5 0190-8, LIPNF, 01088-2, TSHRF #### [facility] CLIA [id number] [address] [place] [address] [place] HIV 1+2 Ab IA Qlon HIV 1 and 2 Ab IA.rapid Nom (S/P/Bld) Normal [facility] Comment on above: Order Comment: Speci men Type: BLOOD SPECIMENOrdering Facility: [facility] Address: [address] [place] [address] Result Comment: Test not indicated. Performed By: #### 5 195-3, 99186-1, 43451-7, 53389-6 ####[facility] [id number] [place] [address] [place] HIV 1+2 Ab+HIV1 p24 Ag IA Ql Non-Reactive Normal Nonreactive [facility] Comment on above: Order Comment: Speci men Type: BLOOD SPECIMENOrdering Facility: [facility] Address: [address] [place] [address] Performed By: #### 5 195-3, 04724-9, 01780-4, 95694-9 ####[facility] [id number] [place] [address] [place] HIV immunoassay testing algorithm interpretation (S/P/Bld) [Interp] Normal [facility] Comment on above: Order Comment: Speci men Type: BLOOD SPECIMENOrdering Facility: [facility] Address: [address] [place] [address] Result Comment: No e vidence of HIV-1 or HIV-2 infection. Should recent infection be suspected, repeat testing may be considered 2-3 weeks after this draw. [place] Rev. Code 3701.243(E): This information has been disclosed to you from confidential records protected from disclosure by state law. You shall make no further disclosure of this information without the specific, written, and informed release of the individual to whom it pertains or as otherwise permitted by state law. A general authorization for the release of medical or other information is not sufficient for the purpose of the release of HIV test results or diagnoses. Performed By: #### 5 195-3, 42621-6, 35234-3, 29467-4 ####[facility] [id number] [place] [address] [place] HbA1c (Bld)on 11-06-2024 Average glucose Estimated from glycated hemoglobin (Bld) [Mass/Vol] 117 mg/dL Normal [facility] Comment on above: Order Comment: Speci men Type: BLOOD SPECIMEN [facility] Address: [address] [place] [address] Result Comment: eAG: (Estimated average glucose) is a calculated value from HgbA1c and is underwriting account representative of the average blood glucose level in the last 2-3 month period. Performed By: #### 5 5454-3 #### [facility] CLIA [id number] [address] [place] [address] [place] HbA1c (Bld) [Mass fraction] 5.7 % High 4.3-5.6 [facility] Comment on above: Order Comment: Speci men Type: BLOOD SPECIMEN [facility] Address: [address] [place] [address] Result Comment: Amer [place] Diabetes Association guidelines indicate that patients with HgbA1c in the range 5.7-6.4% are at increased risk for development of diabetes, and intervention by lifestyle modification may be beneficial. HgbA1c greater or equal to 6.5% is considered diagnostic of diabetes. Performed By: #### 5 5454-3 #### [facility] CLIA [id number] [address] [place] [address] [place] Iron and Iron binding capaci ty panelon 11-06-2024 Iron [Mass/Vol] 84 ug/dL Normal 41-186 [facility] Comment on above: Order Comment: Specgregory muhammad Type: BLOOD SPECIMEN [facility] Address: [address] [place] [address] Performed By: #### 5 0190-8, LIPNF, 02944-1, TSHRF #### [facility] CLIA [id number] [address] [place] [address] [place] Iron binding capacity [Mass/Vol] 284 ug/dL Normal 232-386 [facility] Comment on above: Order Comment: Chidi muhammad Type: BLOOD SPECIMEN [facility] Address: [address] [place] [address] Performed By: #### 5 0190-8, LIPNF, 56929-3, TSHRF #### [facility] CLIA [id number] [address] [place] [address] [place] Iron/TIBC [Molar ratio] 29.6 % Normal 15.0-57.0 [facility] Comment on above: Order Comment: Merlyi men Type: BLOOD SPECIMEN [facility] Address: [address] [place] [address] Performed By: #### 5 0190-8, LIPNF, 74120-9, TSHRF #### [facility] CLIA [id number] [address] [place] [address] [facility] [place] LIPID PANEL, NONFASTINGon Cholesterol [Mass/Vol] 195 mg/dL Normal <200 [facility] Comment on above: Order Comment: Merlyi sabina Type: BLOOD SPECIMEN [facility] Address: [address] [place] [address] Result Comment: <200 mg/dL, Desirable 200-239 mg/dL, Borderline high >239 mg/dL, High Performed By: #### 5 0190-8, LIPNF, 12281-5, TSHRF #### [facility] CLIA [id number] [address] [place] [address] [place] HDL CHOLESTEROL, NF 41 mg/dL Normal >39 [facility] Comment on above: Order Comment: Chidi sabina Type: BLOOD SPECIMEN [facility] Address: [address] [place] [address] Result Comment: 40-5 9 mg/dL, Acceptable >59 mg/dL, High: Negative risk factor for coronary heart disease <40 mg/dL, Low: Positive risk factor for coronary heart disease Performed By: #### 5 0190-8, LIPNF, 94886-8, TSHRF #### [facility] CLIA [id number] [address] [place] [address] [place] LDL CHOLESTEROL CALCULATED, NF 127 mg/dL High <100 [facility] Comment on above: Order Comment: Speci sabina Type: BLOOD SPECIMEN [facility] Address: [address] [place] [address] Result Comment: <100 mg/dL, Optimal 100-129 mg/dL, Near optimal/above optimal 130-159 mg/dL, Borderline high 160-189 mg/dL, High >189 mg/dL, Very high Secondary prevention optimal LDL Cholesterol levels are recommended to be <70 mg/dL LDL cholesterol is calculated using the Leroy-NIH equation. Performed By: #### 5 0190-8, LIPNF, 68755-2, TSHRF #### [facility] CLIA [id number] [address] [place] LDL/HDL RATIO, NF 3.10 mg/dL High <2.54 [facility] Comment on above: Order Comment: Speci men Type: BLOOD SPECIMEN [facility] Address: [address] [place] [address] Result Comment: Ruma jin: 1. National Cholesterol Education Program ATP III Guideline At-A-Glance Quick Desk Reference: National Heart, Lung, and Blood [place]. National Institutes of Health. 2001: NIH Publication No. 01-3305. 2. An International Atherosclerosis Society position paper: global recommendations for the management of dyslipidemia: executive summary, Atherosclerosis. 2014: 232(2):410-413. Performed By: #### 5 0190-8, LIPNF, 95379-4, TSHRF #### [facility] CLIA [id number] [address] [place] [address] [place] NON HDL CHOL, NF 154 mg/dL High <130 [facility] Comment on above: Order Comment: Chidi men Type: BLOOD SPECIMEN [facility] Address: [address] [place] [address] Result Comment: <130 mg/dL, Optimal 130-159 mg/dL, Near optimal/above optimal 160-189 mg/dL, Borderline high 190-219 mg/dL, High >219 mg/dL, Very high Secondary prevention optimal non HDL Cholesterol levels are recommended to be <100 mg/dL Performed By: #### 5 0190-8, LIPNF, 88730-1, TSHRF #### [facility] CLIA [id number] [address] [place] [address] [place] T CHOL/HDL RATIO NF 4.76 mg/dL Normal <5.10 [facility] Comment on above: Order Comment: Merlyi men Type: BLOOD SPECIMEN [facility] Address: [address] [place] [address] Performed By: #### 5 0190-8, LIPNF, 97007-0, TSHRF #### [facility] CLIA [id number] [address] [place] [address] [place] TRIGLYCERIDES, NF 151 mg/dL High <150 [facility] Comment on above: Order Comment: Speci men Type: BLOOD SPECIMEN [facility] Address: [address] [place] [address] Result Comment: <150 mg/dL, Normal 150-199 mg/dL, Borderline high 200-499 mg/dL, High >499 mg/dL, Very high Performed By: #### 5 0190-8, LIPNF, 17387-0, TSHRF #### [facility] CLIA [id number] [address] [place] [address] [place] VLDL CHOLESTEROL, NF 27 mg/dL Normal <30 [facility] Comment on above: Order Comment: Speci men Type: BLOOD SPECIMEN [facility] Address: [address] [place] [address] Performed By: #### 5 0190-8, LIPNF, 45596-4, TSHRF #### [facility] CLIA [id number] [address] [place] [address] [place] Renal function 2000 panelon 11-06-2024 Albumin [Mass/Vol] 4.1 g/dL Normal 3.9-4.9 [facility] Comment on above: Order Comment: Speci men Type: BLOOD SPECIMEN [facility] Address: [address] [place] [address] Performed By: #### 5 0190-8, LIPNF, 19204-2, TSHRF #### [facility] CLIA [id number] [address] [place] [address] [place] Anion gap [Moles/Vol] 11 mmol/L Normal 8-15 [facility] Comment on above: Order Comment: Speci men Type: BLOOD SPECIMEN [facility] Address: [address] [place] [address] Performed By: #### 5 0190-8, LIPNF, 12191-2, TSHRF #### [facility] CLIA [id number] [address] [place] [address] [place] Calcium [Mass/Vol] 9.7 mg/dL Normal 8.5-10.2 [facility] Comment on above: Order Comment: Speci men Type: BLOOD SPECIMEN [facility] Address: [address] [place] [address] Performed By: #### 5 0190-8, LIPNF, 17776-0, TSHRF #### [facility] CLIA [id number] [address] [place] [address] [place] Chloride [Moles/Vol] 103 mmol/L Normal 98-107 [facility] Comment on above: Order Comment: Speci men Type: BLOOD SPECIMEN [facility] Address: [address] [place] [address] Performed By: #### 5 0190-8, LIPNF, 55119-9, TSHRF #### [facility] CLIA [id number] [address] [place] [address] [place] CO2 [Moles/Vol] 26 mmol/L Normal 22-30 [facility] Comment on above: Order Comment: Speci men Type: BLOOD SPECIMEN [facility] Address: [address] [place] [address] Performed By: #### 5 0190-8, LIPNF, 28146-6, TSHRF #### [facility] CLIA [id number] [address] [place] [address] [place] Creatinine [Mass/Vol] 0.92 mg/dL Normal 0.58-0.96 [facility] Comment on above: Order Comment: Speci men Type: BLOOD SPECIMEN [facility] Address: [address] [place] [address] Performed By: #### 5 0190-8, LIPNF, 18922-0, TSHRF #### [facility] CLIA [id number] [address] [place] [address] [place] eGFRcr SerPlBld CKD-EPI 2020 81 mL/min/1.73m??? Normal >=60 [facility] Comment on above: Order Comment: Chidi muhammad Type: BLOOD SPECIMEN [facility] Address: [address] [place] [address] Result Comment: Rhea mated Glomerular Filtration Rate (eGFR) is calculated using the 2020 CKD-EPI creatinine equation. This equation utilizes serum creatinine, sex, and age as parameters. The creatinine assay has traceable calibration to isotope dilution-mass spectrometry. Refer to KDIGO guidelines for clinical interpretation. In patients with unstable renal function, e.g. those with acute kidney injury, the eGFR may not accurately reflect actual GFR. Performed By: #### 5 0190-8, LIPNF, 99784-3, TSHRF #### [facility] CLIA [id number] [address] [place] [address] [place] Glucose [Mass/Vol] 89 mg/dL Normal 74-99 [facility] Comment on above: Order Comment: Chidi muhammad Type: BLOOD SPECIMEN [facility] Address: [address] [place] [address] Result Comment: The [place] Diabetes Association (ADA) provides guidance for cutoff values for fasting glucose and random glucose. The ADA defines fasting as no caloric intake for at least 8 hours. Fasting plasma glucose results between 100 to 125 mg/dL indicate increased risk for diabetes (prediabetes). Fasting plasma glucose results greater than or equal to 126 mg/dL meet the criteria for diagnosis of diabetes. In the absence of unequivocal hyperglycemia, results should be confirmed by repeat testing. In a patient with classic symptoms of hyperglycemia or hyperglycemic crisis, random plasma glucose results greater than or equal to 200 mg/dL meet the criteria for diagnosis of diabetes. Reference: Standards of Medical Care in Diabetes 2016, [place] Diabetes Association. Diabetes Care. 2016.39(Suppl 1). Performed By: #### 5 0190-8, LIPNF, 05627-8, TSHRF #### [facility] CLIA [id number] [address] [place] [address] [place] Phosphate [Mass/Vol] 2.9 mg/dL Normal 2.7-4.8 [facility] Comment on above: Order Comment: Speci men Type: BLOOD SPECIMEN Ordering Facility: [facility] Address: [address] [place] [address] Performed By: #### 5 0190-8, LIPNF, 43140-5, TSHRF #### [facility] CLIA [id number] [address] [place] [address] [place] Potassium [Moles/Vol] 4.5 mmol/L Normal 3.7-5.1 [facility] Comment on above: Order Comment: Speci men Type: BLOOD SPECIMEN Ordering Facility: [facility] Address: [address] [place] [address] Performed By: #### 5 0190-8, LIPNF, 70662-8, TSHRF #### [facility] CLIA [id number] [address] [place] [address] [place] Sodium [Moles/Vol] 140 mmol/L Normal 136-144 [facility] Comment on above: Order Comment: Speci men Type: BLOOD SPECIMEN Ordering Facility: [facility] Address: [address] [place] [address] Performed By: #### 5 0190-8, LIPNF, 13208-3, TSHRF #### [facility] CLIA [id number] [address] [place] [address] [place] Urea nitrogen [Mass/Vol] 12 mg/dL Normal 7-21 [facility] Comment on above: Order Comment: Speci men Type: BLOOD SPECIMEN Ordering Facility: [facility] Address: [address] [place] [address] Performed By: #### 5 0190-8, LIPNF, 16070-3, TSHRF #### [facility] CLIA [id number] [address] [place] [address] [place] TSH W/REFLEX FT4on 5 TSH Qn 1.100 m[IU]/L Normal 0.270-4.200 [facility] Comment on above: Order Comment: Speci men Type: BLOOD SPECIMEN Ordering Facility: [facility] Address: [address] [place] [address] Result Comment: If t he patient is , TSH reference range varies by gestational period: First Trimester (weeks 9-12): 0.180-2.990 mIU/L Second Trimester: 0.110-3.980 mIU/L Third Trimester: 0.480-4.710 mIU/L Riley Espinoza et al. A Practical Approach for the Verifications and Determination of Site- and Trimester-Specific Reference Intervals for Thyroid Function tests in . Thyroid, 2019:29:3:412-420. Mian Rios et al. 2017 Guidelines of the [place] [employer] for the Diagnosis and Management of Thyroid Disease during and the . Thyroid, 2017:27:3:315-389. Performed By: #### 5 0190-8, LIPNF, 89130-1, TSHRF #### [facility] CLIA [id number] [address] [place] [address] [place] XR CHEST 2V FRONTAL/LATon XR CHEST 2V FRONTAL/LAT * * *Final Report* * * DATE OF EXAM: Nov 06 2024 3:16PM WOX 5291 - XR CHEST 2V FRONTAL/LAT / PROCEDURE REASON: Pleuritic chest pain * * * * Physician Interpretation * * * * EXAMINATION: CHEST RADIOGRAPH (2 VIEW FRONTAL and LATERAL) CLINICAL HISTORY: Pleuritic chest pain MQ: XC2_6 EXAM DATE/TIME: 11/06/2024 3:16 PM COMPARISON: Chest x-ray of 10/09/2024 RESULT: Lines, tubes, and devices: None. Lungs and pleura: No consolidation. Right basilar atelectasis/scarring, stable. No lung mass. No pleural effusion. No pneumothorax. Cardiomediastinal silhouette: Normal cardiomediastinal silhouette. Bones and soft tissues: Unremarkable. IMPRESSION: No acute radiographic abnormality. Previously seen right pleural effusion is no longer evident. Assistant To The President: YAHAIRA Transcribe Date/Time: Nov 06 2024 3:28P Dictated by : YESENIA JAQUEZ MD This examination was interpreted and the report reviewed and electronically signed by: YESENIA JAQUEZ MD on Nov 06 2024 3:28PM EST [id number] Normal [facility] XR Chest PA and Lateralon IMPRESSION: No acute radiographic abnormality. Previously seen right pleural effusion is no longer evident. Assistant To The President: [facility] Transcribe Date/Time: Nov 06 2024 3:28P Dictated by : YESENIA JAQUEZ MD This examination was interpreted and the report reviewed and electronically signed by: YESENIA JAQUEZ MD on Nov 06 2024 3:28PM EST DIVISION OF RADIOLOGY * * *Final Report* * * DATE OF EXAM: Nov 06 2024 3:16PM WOX 5291 - XR CHEST 2V FRONTAL/LAT / PROCEDURE REASON: Pleuritic chest pain * * * * Physician Interpretation * * * * EXAMINATION: CHEST RADIOGRAPH (2 VIEW FRONTAL & LATERAL) CLINICAL HISTORY: Pleuritic chest pain MQ: XC2_6 EXAM DATE/TIME: 11/06/2024 3:16 PM COMPARISON: Chest x-ray of 10/09/2024 RESULT: Lines, tubes, and devices: None. Lungs and pleura: No consolidation. Right basilar atelectasis/scarring, stable. No lung mass. No pleural effusion. No pneumothorax. Cardiomediastinal silhouette: Normal cardiomediastinal silhouette. Bones and soft tissues: Unremarkable. DIVISION OF RADIOLOGY Provider, [facility] - 11/06/2024 * * *Final Report* * * DATE OF EXAM: Nov 06 2024 3:16PM WOX 5291 - XR CHEST 2V FRONTAL/LAT / PROCEDURE REASON: Pleuritic chest pain * * * * Physician Interpretation * * * * EXAMINATION: CHEST RADIOGRAPH (2 VIEW FRONTAL & LATERAL) CLINICAL HISTORY: Pleuritic chest pain MQ: XC2_6 EXAM DATE/TIME: 11/06/2024 3:16 PM COMPARISON: Chest x-ray of 10/09/2024 RESULT: Lines, tubes, and devices: None. Lungs and pleura: No consolidation. Right basilar atelectasis/scarring, stable. No lung mass. No pleural effusion. No pneumothorax. Cardiomediastinal silhouette: Normal cardiomediastinal silhouette. Bones and soft tissues: Unremarkable. IMPRESSION IMPRESSION: No acute radiographic abnormality. Previously seen right pleural effusion is no longer evident. Assistant To The President: YAHAIRA Transcribe Date/Time: Nov 06 2024 3:28P Dictated by : YESENIA JAQUEZ MD This examination was interpreted and the report reviewed and electronically signed by: YESENIA JAQUEZ MD on Nov 06 2024 3:28PM EST [facility] Radiology Study observation (narrative) [facility] XR Chest PA and LateralOrder ed By: [facility] Provider on 11-06-2024 [facility] CT BRAIN WO IVCONon 10-24-19 CT BRAIN WO IVCON * * *Final Report* * * DATE OF EXAM: Oct 23 2024 3:54PM [facility] 0504 - CT BRAIN WO IVCON / PROCEDURE REASON: Headache, unspecified headache type * * * * Physician Interpretation * * * * EXAMINATION: CT BRAIN WO IVCON Clinical history: As provided by the ordering clinician via order question entries: Headache, sudden, severe. Headache, unspecified headache type. Stated history: Hx headaches. TECHNIQUE: Serial axial images without IV were obtained from the vertex to the foramen magnum. M: CTBWO_3 CT Dose-Length Product (DLP): 719 mGy*cm CT Dose Reduction Employed: Automated exposure control (AEC) and iterative recon Comparison: None available RESULT: Post-operative change: None. Acute change: No evidence of an acute infarct or other acute parenchymal process. Hemorrhage: No evidence of acute intracranial hemorrhage. Mass Lesion / Mass Effect: There is no evidence of an intracranial mass or extraaxial fluid collection. No significant mass effect. Chronic change: None apparent. Parenchyma: No significant volume loss for age. The brain parenchyma is otherwise within normal limits for age. Ventricles: Ventricular calibers are commensurate with the parenchymal volume and normal in configuration. Paranasal sinuses: The visualized paranasal sinuses are grossly clear. Other: Unremarkable appearance of the orbits. The skull base and imaged soft tissues are unremarkable. Patient Service Rep (topogram) images: Noncontributory IMPRESSION: No acute intracranial abnormality. Assistant To The President: YAHAIRA Transcribe Date/Time: Oct 23 2024 3:59P Dictated by : MICHAEL RAVI MD This examination was interpreted and the report reviewed and electronically signed by: MICHAEL RAVI MD on Oct 23 2024 4:01PM EST [id number] Normal [facility] CT Head WO contraston 2024 IMPRESSION: No acute intracranial abnormality. Assistant To The President: YAHAIRA Transcribe Date/Time: Oct 23 2024 3:59P Dictated by : MICHAEL RAVI MD This examination was interpreted and the report reviewed and electronically signed by: MICHAEL RAVI MD on Oct 23 2024 4:01PM [facility] DIVISION OF RADIOLOGY * * *Final Report* * * DATE OF EXAM: Oct 23 2024 3:54PM [facility] 0504 - CT BRAIN WO IVCON / PROCEDURE REASON: Headache, unspecified headache type * * * * Physician Interpretation * * * * EXAMINATION: CT BRAIN WO IVCON Clinical history: As provided by the ordering clinician via order question entries: Headache, sudden, severe. Headache, unspecified headache type. Stated history: Hx headaches. TECHNIQUE: Serial axial images without IV were obtained from the vertex to the foramen magnum. M: CTBWO_3 CT Dose-Length Product (DLP): 719 mGy*cm CT Dose Reduction Employed: Automated exposure control (AEC) and iterative recon Comparison: None available RESULT: Post-operative change: None. Acute change: No evidence of an acute infarct or other acute parenchymal process. Hemorrhage: No evidence of acute intracranial hemorrhage. Mass Lesion / Mass Effect: There is no evidence of an intracranial mass or extraaxial fluid collection. No significant mass effect. Chronic change: None apparent. Parenchyma: No significant volume loss for age. The brain parenchyma is otherwise within normal limits for age. Ventricles: Ventricular calibers are commensurate with the parenchymal volume and normal in configuration. Paranasal sinuses: The visualized paranasal sinuses are grossly clear. Other: Unremarkable appearance of the orbits. The skull base and imaged soft tissues are unremarkable. Patient Service Rep (topogram) images: Noncontributory DIVISION OF RADIOLOGY Provider, [facility] - 10/23/2024 * * *Final Report* * * DATE OF EXAM: Oct 23 2024 3:54PM [facility] 0504 - CT BRAIN WO IVCON / PROCEDURE REASON: Headache, unspecified headache type * * * * Physician Interpretation * * * * EXAMINATION: CT BRAIN WO IVCON Clinical history: As provided by the ordering clinician via order question entries: Headache, sudden, severe. Headache, unspecified headache type. Stated history: Hx headaches. TECHNIQUE: Serial axial images without IV were obtained from the vertex to the foramen magnum. M: CTBWO_3 CT Dose-Length Product (DLP): 719 mGy*cm CT Dose Reduction Employed: Automated exposure control (AEC) and iterative recon Comparison: None available RESULT: Post-operative change: None. Acute change: No evidence of an acute infarct or other acute parenchymal process. Hemorrhage: No evidence of acute intracranial hemorrhage. Mass Lesion / Mass Effect: There is no evidence of an intracranial mass or extraaxial fluid collection. No significant mass effect. Chronic change: None apparent. Parenchyma: No significant volume loss for age. The brain parenchyma is otherwise within normal limits for age. Ventricles: Ventricular calibers are commensurate with the parenchymal volume and normal in configuration. Paranasal sinuses: The visualized paranasal sinuses are grossly clear. Other: Unremarkable appearance of the orbits. The skull base and imaged soft tissues are unremarkable. Patient Service Rep (topogram) images: Noncontributory IMPRESSION IMPRESSION: No acute intracranial abnormality. Assistant To The President: PSCB Transcribe Date/Time: Oct 23 2024 3:59P Dictated by : MICHAEL RAVI MD This examination was interpreted and the report reviewed and electronically signed by: MICHAEL RAVI MD on Oct 23 2024 4:01PM EST [facility] Radiology Study observation (narrative) [facility] CT Head WO contrastOrdered B y: [facility] Provider on 10-23-2024 [facility] CBC W Auto Differential pane l (Bld)on 10-16-2024 Basophils (Bld) [#/Vol] 0.06 10*3/uL [facility] Basophils/100 WBC (Bld) 0.8 % [facility] Differential cell count method Nom (Bld) Auto [facility] Eosinophils (Bld) [#/Vol] [facility] Eosinophils/100 WBC (Bld) 0.1 % [facility] Erythrocyte distribution width (RBC) [Ratio] 13.8 % 11.5 - 15.0 % [facility] Hematocrit (Bld) [Volume fraction] 45.5 % 36.0 - 46.0 % [facility] Hemoglobin (Bld) [Mass/Vol] 14.8 g/dL 11.5 - 15.5 g/dL [facility] Immature granulocytes (Bld) [#/Vol] 0.03 10*3/uL [facility] Immature granulocytes/100 WBC (Bld) 0.4 % [facility] Interpretation and review of laboratory results Abnormal [facility] Lymphocytes (Bld) [#/Vol] 2 10*3/uL [facility] Lymphocytes/100 WBC (Bld) 25.9 % [facility] MCH (RBC) [Entitic mass] 29.2 pg 26.0 - 34.0 pg [facility] MCHC (RBC) [Mass/Vol] 32.5 g/dL 30.5 - 36.0 g/dL [facility] MCV (RBC) [Entitic vol] 89.9 fL 80.0 - 100.0 fL [facility] Monocytes (Bld) [#/Vol] 0.36 10*3/uL [facility] Monocytes/100 WBC (Bld) 4.7 % [facility] Neutrophils (Bld) [#/Vol] 5.26 10*3/uL [facility] Neutrophils/100 WBC (Bld) 68.1 % [facility] Nucleated RBC (Bld) [#/Vol] [facility] Nucleated RBC/100 WBC (Bld) [Ratio] 0 % /100 WBC [facility] Platelet mean volume (Bld) [Entitic vol] 9.3 fL 9.0 - 12.7 fL [facility] Platelets (Bld) [#/Vol] 402 10*3/uL High [facility] RBC (Bld) [#/Vol] 5.06 10*6/uL 3.90 - 5.2 0 m/uL [facility] WBC (Bld) [#/Vol] 7.72 10*3/uL [facility] Basophils (Bld) [#/Vol] 0.06 10*3/uL Normal <0.11 [facility] Comment on above: Order Comment: Speci men Type: BLOOD SPECIMENOrdering Facility: [facility] Address: [address] [place] [address] Performed By: #### 5 7021-8, 7 ####[facility] [id number] [facility]ENTERK [id number], [facility]95 [place] Basophils/100 WBC (Bld) 0.8 % Normal [facility] Comment on above: Order Comment: Speci men Type: BLOOD SPECIMENOrdering Facility: [facility] Address: [address] [place] [address] Performed By: #### 5 7021-8, 7 ####[facility] [id number] [facility]ENTERK [address], [place] [address] [place] Differential cell count method Nom (Bld) Auto Normal [facility] Comment on above: Order Comment: Speci men Type: BLOOD SPECIMENOrdering Facility: [facility] Address: [address] [place] [address] Performed By: #### 5 7021-8, 7 ####[facility] [id number] [facility] [address], [place] [address] [place] Eosinophils (Bld) [#/Vol] 10*3/uL Normal <0.46 [facility] Comment on above: Order Comment: Speci men Type: BLOOD SPECIMENOrdering Facility: [facility] Address: [address] [place] [address] Performed By: #### 5 7021-8, 7 ####[facility] [id number] [facility] [place] [address] [place] Eosinophils/100 WBC (Bld) 0.1 % Normal [facility] Comment on above: Order Comment: Speci men Type: BLOOD SPECIMENOrdering Facility: [facility] Address: [address] [place] [address] Performed By: #### 5 7021-8, 4536-7 ####[facility] [id number] [facility] [address], [place] [address] [place] Erythrocyte distribution width (RBC) [Ratio] 13.8 % Normal 11.5-15.0 [facility] Comment on above: Order Comment: Speci men Type: BLOOD SPECIMENOrdering Facility: [facility] Address: [address] [place] [address] Performed By: #### 5 7021-8, 4536-7 ####[facility] [id number] [place] [address] [place] Hematocrit (Bld) [Volume fraction] 45.5 % Normal 36.0-46.0 [facility] Comment on above: Order Comment: Speci men Type: BLOOD SPECIMENOrdering Facility: [facility] Address: [address] [place] [address] Performed By: #### 5 7021-8, 4536-7 ####[facility] [id number] [place] [address] [place] Hemoglobin (Bld) [Mass/Vol] 14.8 g/dL Normal 11.5-15.5 [facility] Comment on above: Order Comment: Speci men Type: BLOOD SPECIMENOrdering Facility: [facility] Address: [address] [place] [address] Performed By: #### 5 7021-8, 4536-7 ####[facility] [id number] [place] [address] [place] Immature granulocytes (Bld) [#/Vol] 0.03 10*3/uL Normal <0.10 [facility] Comment on above: Order Comment: Speci men Type: BLOOD SPECIMENOrdering Facility: [facility] Address: [address] [place] [address] Performed By: #### 5 7021-8, 4536-7 ####[facility] [id number] [place] [address] [place] Immature granulocytes/100 WBC (Bld) 0.4 % Normal [facility] Comment on above: Order Comment: Speci men Type: BLOOD SPECIMENOrdering Facility: [facility] Address: [address] [place] [address] Performed By: #### 5 7021-8, 7-7 ####[facility] [id number] [place] [address] [place] Lymphocytes (Bld) [#/Vol] 2.00 10*3/uL Normal 1.00-4.00 [facility] Comment on above: Order Comment: Speci men Type: BLOOD SPECIMENOrdering Facility: [facility] Address: [address] [place] [address] Performed By: #### 5 7021-8, 4536-7 ####[facility]IA [id number] [place] [address] [place] Lymphocytes/100 WBC (Bld) 25.9 % Normal [facility] Comment on above: Order Comment: Speci men Type: BLOOD SPECIMENOrdering Facility: [facility] Address: [address] [place] [address] Performed By: #### 5 7021-8, 4536-7 ####[facility] [id number] [place] [address] [place] MCH (RBC) [Entitic mass] 29.2 pg Normal 26.0-34.0 [facility] Comment on above: Order Comment: Speci men Type: BLOOD SPECIMENOrdering Facility: [facility] Address: [address] [place] [address] Performed By: #### 5 7021-8, 4536-7 ####[facility]IA [id number] [place] [address] [place] MCHC (RBC) [Mass/Vol] 32.5 g/dL Normal 30.5-36.0 [facility] Comment on above: Order Comment: Speci men Type: BLOOD SPECIMENOrdering Facility: [facility] Address: [address] [place] [address] Performed By: #### 5 7021-8, 7 ####[facility] [id number] [place] [address] [place] MCV (RBC) [Entitic vol] 89.9 fL Normal 80.0-100.0 [facility] Comment on above: Order Comment: Speci men Type: BLOOD SPECIMENOrdering Facility: [facility] Address: [address] [place] [address] Performed By: #### 5 7021-8, 7 ####[facility] [id number] [place] [address] [place] Monocytes (Bld) [#/Vol] 0.36 10*3/uL Normal <0.87 [facility] Comment on above: Order Comment: Speci men Type: BLOOD SPECIMENOrdering Facility: [facility] Address: [address] [place] [address] Performed By: #### 5 7021-8, 7 ####[facility] [id number] [place] [address] [place] Monocytes/100 WBC (Bld) 4.7 % Normal [facility] Comment on above: Order Comment: Speci men Type: BLOOD SPECIMENOrdering Facility: [facility] Address: [address] [place] [address] Performed By: #### 5 7021-8, 7 ####[facility] [id number] [place] [id number] [place] Neutrophils (Bld) [#/Vol] 5.26 10*3/uL Normal 1.45-7.50 [facility] Comment on above: Order Comment: Speci men Type: BLOOD SPECIMENOrdering Facility: [facility] Address: [address] [place] [address] Performed By: #### 5 7021-8, 7 ####[facility] [id number] [place] [address] [place] Neutrophils/100 WBC (Bld) 68.1 % Normal [facility] Comment on above: Order Comment: Speci men Type: BLOOD SPECIMENOrdering Facility: [facility] Address: [address] [place] [address] Performed By: #### 5 7021-8, 4537-7 ####[facility] [id number] [place] [address] [place] Nucleated RBC (Bld) [#/Vol] 10*3/uL Normal <0.01 [facility] Comment on above: Order Comment: Speci men Type: BLOOD SPECIMENOrdering Facility: [facility] Address: [address] [place] [address] Performed By: #### 5 7021-8, 4537-7 ####[facility] [id number] [place] [address] [place] Nucleated RBC/100 WBC (Bld) [Ratio] 0.0 /100 WBC Normal [facility] Comment on above: Order Comment: Speci men Type: BLOOD SPECIMENOrdering Facility: [facility] Address: [address] [place] [address] Performed By: #### 5 7021-8, 4537-7 ####[facility] [id number] [place] [address] [place] Platelet mean volume (Bld) [Entitic vol] 9.3 fL Normal 9.0-12.7 [facility] Comment on above: Order Comment: Speci men Type: BLOOD SPECIMENOrdering Facility: [facility] Address: [address] [place] [address] Performed By: #### 5 7021-8, 4537-7 ####[facility] [id number] [place] [address] [place] Platelets (Bld) [#/Vol] 402 10*3/uL High 150-400 [facility] Comment on above: Order Comment: Speci men Type: BLOOD SPECIMENOrdering Facility: [facility] Address: [address] [place] [address] Performed By: #### 5 7021-8, 4537-7 ####[facility] [id number] [place] [address] [place] RBC (Bld) [#/Vol] 5.06 10*6/uL Normal 3.90-5.20 [facility] Comment on above: Order Comment: Speci men Type: BLOOD SPECIMENOrdering Facility: [facility] Address: [address] [place] [address] Performed By: #### 5 7021-8, 4537-7 ####[facility] [id number] [place] [address] [place] WBC (Bld) [#/Vol] 7.72 10*3/uL Normal 3.70-11.00 [facility] Comment on above: Order Comment: Speci men Type: BLOOD SPECIMENOrdering Facility: [facility] Address: [address] [place] [id number] Performed By: #### 5 7021-8, 4537-7 ####[facility] [id number] [place] [address] [place] CNOVon 10-16-2024 CNOV Office Visit (KRISWS ) GRICEL PATEL ([id number]) 1985 F Date Time Provider Department 10/16/24 2:00 PM MELVI SWANSON During your visit today, we recorded the following information about you: Temperature Pulse Blood pressure Weight 98.5 degrees 106/minute 109/80 91.3 kg Melvi Swanson MD 10/16/2024 2:57 PM Signed Family Medicine OUTPATIENT VISIT October 15, 2024 CC: empyema HPI: 39 year old female patient with a history of Empyema on augmentin, managed w/ chest tube (chest tube removed 09/16/24) and lytic therapy Tobacco abuse actively trying to wean Presents for follow up. Since last visit, CBC and CMP unremarkable but slight elevation in inflammatory markers (ESR 35 to 40 and CRP negative to 1.2) in addition to her worsening symptoms, thus CT chest was obtained. IMPRESSION: 1. No CT evidence of pulmonary embolism, no signs of right heart strain. 2. Trace right pleural effusion and underlying linear hypoventilation/scarri ng in the right lung base, possibly partially treated or early inflammation as suggested on the radiograph of 10/03. 3. No new consolidation or left pleural effusion. Was referred to for US of trace effusion plus possible thoracentesis but was cancelled due to not enough fluid. States that she has been having a migraine over last 3-4 days. Bilateral temples and frontal MORILLO. No neck pain or stiffness. Gets migraines at baseline but this is worse that her usual one. Currently is 4/10. At worse was 8/10. Photophobia early but now improved. No aura. No hand weakness right now but two days ago had hand numbness in both hands at different times lasting 15 minutes that then resolved. No weakness. No confusion, speech slurring or facial droop. States that today it is improving. Is still fatigued. States this is slightly better than last week. Is doing minimal activity daily though is able to go to the store. Has not yet started PT. Mild Shortness of Breath is getting better. Had some NBNB emesis when she was having migraines. Does endorse she thinks she probably is not staying well hydrated due to feeling unwell. Has been using Alleve at home. Review of Systems PAIN ASSESSMENT: Negative for pain, history of chronic pain, or current treatment for a chronic pain condition. GENERAL: No weight loss, or fevers HEENT: as above RESPIRATORY: Negative for cough, wheezing, or drainage from chest tube site. CARDIOVASCULAR: Negative for chest pain, palpitations, PND or orthopnea GI: No nausea, vomiting, or diarrhea or abdominal pain. No [place] bleeding or melana : No history of dysuria, frequency, urgency, or change in urine appearance NEURO: Jose above Health maintenance: Depression Screening Never done Anxiety Screening Never done Hepatitis C Screening Never done HIV Screening Never done DTaP,Tdap,Td Vaccine(1 - Tdap) Never done Hepatitis B Vaccine(1 of 3 - 19+ 3-dose series) Never done Pneumococcal Vaccine(1 of 2 - PCV) Never done Cervical Cancer Screening due on 07/11/2017 Mammogram Screening Never done Allergies: ALLERGIES Allergen Reactions Vicodin [Hydrocodon* GI Upset Patient c/o nausea and dizziness Medications: amoxicillin-clavulanat e potassium (AUGMENTIN) 875-125 mg per tablet Take 1 tablet by mouth every 12 hours for 21 days. cyclobenzaprine (FLEXERIL) 10 mg tablet Take 1 tablet by mouth three times a day as needed. nicotine (NICODERM) 14 mg/24 hr Apply 1 patch as directed every 24 hours. (Patient not taking: Reported on 10/09/2024) Past Medical History: PAST MEDICAL HISTORY Diagnosis Date Infectious mononucleosis Mononucleosis Tobacco abuse since age 15, pack a day Urinary tract infection, site not specified Social History: Social History Tobacco Use Smoking status: Every Day Current packs/day: 1.00 Average packs/day: 1 pack/day for 24.0 years (24.0 ttl pk-yrs) Types: Cigarettes Smokeless tobacco: Current Tobacco comments: Willing to cut down to half pack per da Substance Use Topics Alcohol use: No Drug use: No Family History: Family History Problem Relation Age of Onset Heart Paternal Grandmother HEART PROBLEMS Stroke Maternal Grandmother Diabetes Maternal Grandfather Diabetes Paternal Grandmother Breast Cancer Paternal Aunt None Father None Sister None Brother None Mother BP 109/80 (BP Site: Left Arm, BP Position: Sitting, BP Cuff Size: Regular Adult) Pulse 106 Temp 36.9 ?C (98.5 ?F) (Left Tympanic) Wt 91.3 kg (201 lb 3.2 oz) LMP 03/11/2024 (Approximate) SpO2 96% General: Awake, alert, not in acute distress LIFE TRAINER: Answering questions appropriately. No abnormal posturing or positioning. Speech is normal. Strength grossly intact. CN exam, speech, UE and LE motor, reflex, and sensory exam all normal. RESP: Clear lungs bilateral with good air entry, No increased work of br (more content not included)... Normal [facility] CNPNon 10-16-2024 CNPN Telephone (FAMPWS) JORGEGRICEL Olga ([id number]) 1985 F Date Time Provider Department 10/16/24 MELVI SWANSON During your visit today, we recorded the following information about you: Stephanie Wolf MA 10/16/2024 5:13 PM Signed Patient has been identified by name and date of : Yes, Provider Melvi Swanson MD Date 10/16/2024 Time 513pm Type of form: FMLA Form received via: Fax When form is completed, contact patient . Form has been forwarded to: Provider's desk. Provider name: MD Stephanie Clemente MA Russell, Julia, LPN 10/17/2024 10:16 AM Signed LEFT MESSAGE FOR PATIENT TO CALL OFFICE. Cecile Curry LPN 10/18/2024 8:07 AM Signed Form has been faxed to [phone]. Allergies As of Date: 10/16/2024 Noted Allergy Reaction VICODIN (HYDROCODONE-ACETAMINO PHE*02/01/2005 8 - GI Upset Comments: Patient c/o nausea and dizziness Date Reviewed: 10/16/2024 Reviewed by: Stephanie Wolf MA - Fully Assessed Prescriptions as of 10/18/2024 - amoxicillin-clavulanat e potassium (AUGMENTIN) 875-125 mg per tablet Take 1 tablet by mouth every 12 hours for 21 days. - nicotine (NICODERM) 14 mg/24 hr Apply 1 patch as directed every 24 hours. - cyclobenzaprine (FLEXERIL) 10 mg tablet Take 1 tablet by mouth three times a day as needed. Problem List As Of Date 10/16/2024 Noted Resolved Genital herpes [A60.00] 07/10/2012 Encounter Status:Closed by CECILE CURRY on 10/18/24 Normal [facility] CRP SerPl-mCncon 10-16-2024 CRP [Mass/Vol] mg/L Normal <0.9 [facility] Comment on above: Order Comment: Speci men Type: BLOOD SPECIMEN Ordering Facility: [facility] Address: [address] [place] [address] Performed By: #### 5 0190-8, LIPNF, 99910-1, TSHRF #### [facility] CLIA [id number] [address] [place] [address] [place] ESR Westergren method (Bld) [Velocity]on 10-16-2024 ESR (Bld) [Velocity] 20 mm/h [facility] Interpretation and review of laboratory results Normal [facility] ESR (Bld) [Velocity] 20 mm/h Normal 0-20 [facility] Comment on above: Order Comment: Speci men Type: BLOOD SPECIMENOrdering Facility: [facility] Address: [address] [place] [address] Performed By: #### 5 7021-8, 4537-7 ####[facility] [id number] [place] [address] [place] Magnesium SerPl-mCncon 10-16 Magnesium [Mass/Vol] 2.2 mg/dL Normal 1.7-2.3 [facility] Comment on above: Order Comment: Speci men Type: BLOOD SPECIMEN Ordering Facility: [facility] Address: [address] [place] [address] Performed By: #### 5 0190-8, LIPNF, 81924-8, TSHRF #### [facility] CLIA [id number] [address] [place] [address] [place] Renal function 2000 panelon 10-16-2024 Albumin [Mass/Vol] 4.4 g/dL Normal 3.9-4.9 [facility] Comment on above: Order Comment: Speci men Type: BLOOD SPECIMEN Ordering Facility: [facility] Address: [address] [place] [address] Performed By: #### 5 0190-8, LIPNF, 92800-5, TSHRF #### [facility] CLIA [id number] [address] [place] [address] [place] Anion gap [Moles/Vol] 15 mmol/L Normal 8-15 [facility] Comment on above: Order Comment: Speci men Type: BLOOD SPECIMEN Ordering Facility: [facility] Address: [address] [place] [address] Performed By: #### 5 0190-8, LIPNF, 43722-3, TSHRF #### [facility] CLIA [id number] [address] [place] [address] [place] Calcium [Mass/Vol] 10.3 mg/dL High 8.5-10.2 [facility] Comment on above: Order Comment: Speci men Type: BLOOD SPECIMEN Ordering Facility: [facility] Address: [address] [place] [address] Performed By: #### 5 0190-8, LIPNF, 65223-8, TSHRF #### [facility] CLIA [id number] [address] [place] [address] [place] Chloride [Moles/Vol] 97 mmol/L Low 98-107 [facility] Comment on above: Order Comment: Speci men Type: BLOOD SPECIMEN Ordering Facility: [facility] Address: [address] [place] [address] Performed By: #### 5 0190-8, LIPNF, 91362-4, TSHRF #### [facility] CLIA [id number] [address] [place] [address] [place] CO2 [Moles/Vol] 25 mmol/L Normal 22-30 [facility] Comment on above: Order Comment: Speci men Type: BLOOD SPECIMEN Ordering Facility: [facility] Address: [address] [place] [address] Performed By: #### 5 0190-8, LIPNF, 65261-3, TSHRF #### [facility] CLIA [id number] [address] [place] [address] [place] Creatinine [Mass/Vol] 0.90 mg/dL Normal 0.58-0.96 [facility] Comment on above: Order Comment: Speci men Type: BLOOD SPECIMEN Ordering Facility: [facility] Address: [address] [place] [address] Performed By: #### 5 0190-8, LIPBRAD, 23589-6, TSHRF #### [facility] CLIA [id number] [address] [place] [address] [place] eGFRcr SerPlBld CKD-EPI 2020 83 mL/min/1.73m??? Normal >=60 [facility] Comment on above: Order Comment: Speci men Type: BLOOD SPECIMEN Ordering Facility: [facility] Address: [address] [place] [address] Result Comment: Rhea mated Glomerular Filtration Rate (eGFR) is calculated using the 2020 CKD-EPI creatinine equation. This equation utilizes serum creatinine, sex, and age as parameters. The creatinine assay has traceable calibration to isotope dilution-mass spectrometry. Refer to KDIGO guidelines for clinical interpretation. In patients with unstable renal function, e.g. those with acute kidney injury, the eGFR may not accurately reflect actual GFR. Performed By: #### 5 0190-8, LIPBRAD, 12662-9, TSHRF #### [facility] CLIA [id number] [address] [place] [address] [place] Glucose [Mass/Vol] 111 mg/dL High 74-99 [facility] Comment on above: Order Comment: Speci men Type: BLOOD SPECIMEN Ordering Facility: [facility] Address: [address] [place] [address] Result Comment: The [place] [employer] (ADA) provides guidance for cutoff values for fasting glucose and random glucose. The ADA defines fasting as no caloric intake for at least 8 hours. Fasting plasma glucose results between 100 to 125 mg/dL indicate increased risk for diabetes (prediabetes). Fasting plasma glucose results greater than or equal to 126 mg/dL meet the criteria for diagnosis of diabetes. In the absence of unequivocal hyperglycemia, results should be confirmed by repeat testing. In a patient with classic symptoms of hyperglycemia or hyperglycemic crisis, random plasma glucose results greater than or equal to 200 mg/dL meet the criteria for diagnosis of diabetes. Reference: Standards of Medical Care in Diabetes 2016, [place] [employer]. Diabetes Care. 2016.39(Suppl 1). Performed By: #### 5 0190-8, LIPNF, 12215-2, TSHRF #### [facility] CLIA [id number] [address] [place] [address] [place] Phosphate [Mass/Vol] 3.6 mg/dL Normal 2.7-4.8 [facility] Comment on above: Order Comment: Speci men Type: BLOOD SPECIMEN Ordering Facility: [facility] Address: [address] [place] [address] Performed By: #### 5 0190-8, LIPNF, 18767-1, TSHRF #### [facility] CLIA [id number] [address] [place] [address] [place] Potassium [Moles/Vol] 4.4 mmol/L Normal 3.7-5.1 [facility] Comment on above: Order Comment: Speci men Type: BLOOD SPECIMEN Ordering Facility: [facility] Address: [address] [place] [address] Performed By: #### 5 0190-8, LIPNF, 47362-7, TSHRF #### [facility] CLIA [id number] [address] [place] [address] [place] Sodium [Moles/Vol] 137 mmol/L Normal 136-144 [facility] Comment on above: Order Comment: Speci men Type: BLOOD SPECIMEN Ordering Facility: [facility] Address: [address] [place] [address] Performed By: #### 5 0190-8, LIPNF, 36806-6, TSHRF #### [facility] CLIA [id number] [address] [place] [address] [place] Urea nitrogen [Mass/Vol] 14 mg/dL Normal 7-21 [facility] Comment on above: Order Comment: Speci men Type: BLOOD SPECIMEN Ordering Facility: [facility] Address: [address] [place] [address] Performed By: #### 5 0190-8, LIPNF, 69967-5, TSHRF #### [facility] CLIA [id number] [address] [place] [address] [facility] RIVKA Telephone ([id number]) GRICEL PATEL ([id number]) 1985 F Date Time Provider Department 10/10/24 MAYELA TOURE [id number] During your visit today, we recorded the following information about you: Mayela Toure HUC 10/10/2024 10:25 AM Signed Contacted patient to schedule visit and Thoracentesis.No answer,left message. Mayela Toure HUC 10/10/2024 2:32 PM Signed Spoke with pt to schedule visit and Thoracentesis 10/11/24 beginning @ 1:45 pm. Gloria Crowell APRN.PITA 10/11/2024 11:36 AM Addendum Spoke to Dr. Alvarado. Per Dr. Alvarado, the patient does not need to come in for a thoracentesis today as she had a CT study yesterday and imaging shows only trace right pleural effusion, not enough for perform a thoracentesis procedure. Called patient to discuss the above. She was very happy to hear this and she understands to fully finish the Augmentin (21 days). Message to be sent to scheduling to cancel appointments. Gloria Crowell APRN.HOUSE CARPENTER October 11, 2024 11:35 AM Allergies As of Date: 10/10/2024 Noted Allergy Reaction VICODIN (HYDROCODONE-ACETAMINO PHE*02/01/2005 8 - GI Upset Comments: Patient c/o nausea and dizziness Date Reviewed: 10/10/2024 Reviewed by: Jacklyn Park, RT(R) - Fully Assessed Reason for Visit: Appointment [186] Effusion [999] Primary Visit Diagnosis:Pleural effusion [J90] [J90] Prescriptions as of 10/11/2024 - iv contrast (will be provided with radiology test) CT Chest PE -Inject, intravenously, once for 1 dose.No IV access, insert saline lock prior to the beginning of sedation, infusion, injection of imaging exam. Discontinue saline lock post exam. If Pt. has a central line or IVAD, may access for administration according to line specific nursing protocol. Once exam is complete flush line and de-access according to line specific nursing protocol in the CT contrast administration guidelines link. - amoxicillin-clavulanat e potassium (AUGMENTIN) 875-125 mg per tablet Take 1 tablet by mouth every 12 hours for 21 days. - guaiFENesin (MUCINEX) 600 mg 12 hr tablet Take 600 mg by mouth every 12 hours. - nicotine (NICODERM) 14 mg/24 hr Apply 1 patch as directed every 24 hours. - cyclobenzaprine (FLEXERIL) 10 mg tablet Take 1 tablet by mouth three times a day as needed. Problem List As Of Date 10/10/2024 Noted Resolved Genital herpes [A60.00] 07/10/2012 Encounter Status:Closed by [facility] ([id number]) 1985 F Date Time Provider Department 10/10/24 MELVI SWANSONPWS During your visit today, we recorded the following information about you: Melvi Swanson MD 10/10/2024 9:58 AM Signed Ordering CTPE Will call pt to let her know Allergies As of Date: 10/10/2024 Noted Allergy Reaction VICODIN (HYDROCODONE-ACETAMINO PHE*02/01/2005 8 - GI Upset Comments: Patient c/o nausea and dizziness Date Reviewed: 10/09/2024 Reviewed by: Cecile Curry LPN - Fully Assessed Primary Visit Diagnosis:Chest pain on breathing [R07.1] Order(s):CTA CHEST (NONGATED) W IVCON PE [[id number]] Order #: [id number] FUTURE iv contrast (will be provided with radiology test)CT Chest PE -Inject, intravenously, once for 1 dose.No IV access, insert saline lock prior to the beginning of sedation, infusion, injection of imaging exam. Discontinue saline lock post exam. If Pt. has a central line or IVAD, may access for administration according to line specific nursing protocol. Once exam is complete flush line and de-access according to line specific nursing protocol in the CT contrast administration guidelines link.Disp: 1 eachRfl: 0 Prescriptions as of 10/10/2024 - iv contrast (will be provided with radiology test) CT Chest PE -Inject, intravenously, once for 1 dose.No IV access, insert saline lock prior to the beginning of sedation, infusion, injection of imaging exam. Discontinue saline lock post exam. If Pt. has a central line or IVAD, may access for administration according to line specific nursing protocol. Once exam is complete flush line and de-access according to line specific nursing protocol in the CT contrast administration guidelines link. - amoxicillin-clavulanat e potassium (AUGMENTIN) 875-125 mg per tablet Take 1 tablet by mouth every 12 hours for 21 days. - guaiFENesin (MUCINEX) 600 mg 12 hr tablet Take 600 mg by mouth every 12 hours. - nicotine (NICODERM) 14 mg/24 hr Apply 1 patch as directed every 24 hours. - cyclobenzaprine (FLEXERIL) 10 mg tablet Take 1 tablet by mouth three times a day as needed. Problem List As Of Date 10/10/2024 Noted Resolved Genital herpes [A60.00] 07/10/2012 Prescriptions ordered this encounter Disp Refills Start End IV CONTRAST (RADIOLOGY PROCEDURE) - * 1 ea* 0 10/10/2024 10/11/2024 Class: In Office Sig: CT Chest PE -Inject, intravenously, once for 1 dose.No IV access, insert saline lock prior to the beginning of sedation, infusion, injection of imaging exam. Discontinue saline lock post exam. If Pt. has a central line or IVAD, may access for administration according to line specific nursing protocol. Once exam is complete flush line and de-access according to line specific nursing protocol in the CT contrast administration guidelines link. Encounter Status:Closed by MELVI SWANSON on 10/10/24 Normal [facility] CTA CHEST (NON GATED) W IVCO N PEon 10-10-2024 CTA CHEST (NON GATED) W IVCON PE * * *Final Report* * * DATE OF EXAM: Oct 10 2024 3:08PM [facility] 0564 - CTA CHEST (NON GATED) W IVCON PE / PROCEDURE REASON: Chest pain on breathing * * * * Physician Interpretation * * * * EXAMINATION: CHEST CTA (NON GATED) WITH CONTRAST (PULMONARY EMBOLISM PROTOCOL) Clinical History: Chest pain on breathing Technique: Spiral CT acquisition of the chest from the thoracic inlet to the upper abdomen following IV contrast. Axial 1 and 3 mm thick slices plus coronal and sagittal reformatted images. MQ: CTCP_5 Contrast: 100 mL Omnipaque [address] Radiation dose: Integrated Dose-length product (DLP) for this visit = 436 mGy*cm CT Dose Reduction Employed: Automated exposure control(AEC) and iterative recon CTA: Post-processed images (Maximum intensity Projection (MIP), Volume-rendered (VR), or Surface shaded display images (SSD) were created, reviewed and archived. Comparison: Chest radiographs 10/09/2024 and priors RESULT: Limitations: Suboptimal study due to respiratory motion with or without non-ideal pulmonary arterial enhancement. Evaluation for thromboembolic disease: - Right heart chambers: No thromboembolic disease. - Main pulmonary arteries: No thromboembolic disease. - Lobar pulmonary arteries: No thromboembolic disease. - Segmental pulmonary arteries: No thromboembolic disease. - Subsegmental pulmonary arteries: No thromboembolic disease although evaluation is degraded due to contrast bolus timing. - Additional pulmonary artery findings: The main pulmonary artery is normal in caliber. Lines, tubes, and devices: None. Lung parenchyma and airways: Small calcified likely granuloma is present in the left lung apex, superior left lower lobe and right lower lobe. No consolidation. Linear atelectasis/scarring present in the right middle lobe and basal segment of the right upper lobe, possible partially treated or early inflammation as suggested on the radiograph of 10/03/2024. Central airways are patent. Pleural space: No pneumothorax. Trace right pleural effusion. No left pleural effusion.. Lower neck, lymph nodes, and mediastinum: The imaged thyroid gland is normal. No lymphadenopathy in the supraclavicular, axillary, mediastinal, or hilar regions. Small calcified lymph nodes in the subcarinal region and right hilum are likely the sequela of prior granulomatous infection. Heart, pericardium, and thoracic vessels: The thoracic aorta is normal in caliber , 4-vessel aortic arch with the left vertebral artery arising from the aorta, normal variant. The cardiac chambers are normal in size. No significant coronary artery atherosclerotic calcifications are noted, although the study is not optimized for coronary assessment. No pericardial effusion or thickening. Bones and soft tissues: Thoracic spondylosis. No acute osseous abnormalities. Upper abdomen: No acute abnormality in the imaged upper abdomen. Localizer images: No additional findings. IMPRESSION: 1. No CT evidence of pulmonary embolism, no signs of right heart strain. 2. Trace right pleural effusion and underlying linear hypoventilation/scarri ng in the right lung base, possibly partially treated or early inflammation as suggested on the radiograph of 10/03. 3. No new consolidation or left pleural effusion. Assistant To The President: YAHAIRA Transcribe Date/Time: Oct 10 2024 3:14P Dictated by : BETH COOK MD This examination was interpreted and the report reviewed and electronically signed by: BETH COOK MD on Oct 10 2024 3:24PM EST [id number] Normal [facility] CTA Pulmonary arteries for p ulmonary embolus W contrast Mary 10-10-[address]: [address] evidence of pulmonary embolism, no signs of right heart strain. 2. Trace right pleural effusion and underlying linear hypoventilation/scarri ng in the right lung base, possibly partially treated or early inflammation as suggested on the radiograph of 10/03. 3. No new consolidation or left pleural effusion. Assistant To The President: YAHAIRA Transcribe Date/Time: Oct 10 2024 3:14P Dictated by : BETH COOK MD This examination was interpreted and the report reviewed and electronically signed by: BETH COOK MD on Oct 10 2024 3:24PM [facility] OF RADIOLOGY * * *Final Report* * * DATE OF EXAM: Oct 10 2024 3:08PM [facility] 0564 - CTA CHEST (NON GATED) W IVCON PE / PROCEDURE REASON: Chest pain on breathing * * * * Physician Interpretation * * * * EXAMINATION: CHEST CTA (NON GATED) WITH CONTRAST (PULMONARY EMBOLISM PROTOCOL) Clinical History: Chest pain on breathing Technique: Spiral CT acquisition of the chest from the thoracic inlet to the upper abdomen following IV contrast. Axial 1 and 3 mm thick slices plus coronal and sagittal reformatted images. MQ: CTCP_5 Contrast: 100 mL Omnipaque [address] Radiation dose: Integrated Dose-length product (DLP) for this visit = 436 mGy*cm CT Dose Reduction Employed: Automated exposure control(AEC) and iterative recon CTA: Post-processed images (Maximum intensity Projection (MIP), Volume-rendered (VR), or Surface shaded display images (SSD) were created, reviewed and archived. Comparison: Chest radiographs 10/09/2024 and priors RESULT: Limitations: Suboptimal study due to respiratory motion with or without non-ideal pulmonary arterial enhancement. Evaluation for thromboembolic disease: - Right heart chambers: No thromboembolic disease. - Main pulmonary arteries: No thromboembolic disease. - Lobar pulmonary arteries: No thromboembolic disease. - Segmental pulmonary arteries: No thromboembolic disease. - Subsegmental pulmonary arteries: No thromboembolic disease although evaluation is degraded due to contrast bolus timing. - Additional pulmonary artery findings: The main pulmonary artery is normal in caliber. Lines, tubes, and devices: None. Lung parenchyma and airways: Small calcified likely granuloma is present in the left lung apex, superior left lower lobe and right lower lobe. No consolidation. Linear atelectasis/scarring present in the right middle lobe and basal segment of the right upper lobe, possible partially treated or early inflammation as suggested on the radiograph of 10/03/2024. Central airways are patent. Pleural space: No pneumothorax. Trace right pleural effusion. No left pleural effusion.. Lower neck, lymph nodes, and mediastinum: The imaged thyroid gland is normal. No lymphadenopathy in the supraclavicular, axillary, mediastinal, or hilar regions. Small calcified lymph nodes in the subcarinal region and right hilum are likely the sequela of prior granulomatous infection. Heart, pericardium, and thoracic vessels: The thoracic aorta is normal in caliber , 4-vessel aortic arch with the left vertebral artery arising from the aorta, normal variant. The cardiac chambers are normal in size. No significant coronary artery atherosclerotic calcifications are noted, although the study is not optimized for coronary assessment. No pericardial effusion or thickening. Bones and soft tissues: Thoracic spondylosis. No acute osseous abnormalities. Upper abdomen: No acute abnormality in the imaged upper abdomen. Localizer images: No additional findings. DIVISION OF RADIOLOGY Provider, [facility] - 10/10/2024 * * *Final Report* * * DATE OF EXAM: Oct 10 2024 3:08PM [facility] 0564 - CTA CHEST (NON GATED) W IVCON PE / PROCEDURE REASON: Chest pain on breathing * * * * Physician Interpretation * * * * EXAMINATION: CHEST CTA (NON GATED) WITH CONTRAST (PULMONARY EMBOLISM PROTOCOL) Clinical History: Chest pain on breathing Technique: Spiral CT acquisition of the chest from the thoracic inlet to the upper abdomen following IV contrast. Axial 1 and 3 mm thick slices plus coronal and sagittal reformatted images. MQ: CTCP_5 Contrast: 100 mL Omnipaque [address] Radiation dose: Integrated Dose-length product (DLP) for this visit = 436 mGy*cm CT Dose Reduction Employed: Automated exposure control(AEC) and iterative recon CTA: Post-processed images (Maximum intensity Projection (MIP), Volume-rendered (VR), or Surface shaded display images (SSD) were created, reviewed and archived. Comparison: Chest radiographs 10/09/2024 and priors RESULT: Limitations: Suboptimal study due to respiratory motion with or without non-ideal pulmonary arterial enhancement. Evaluation for thromboembolic disease: - Right heart chambers: No thromboembolic disease. - Main pulmonary arteries: No thromboembolic disease. - Lobar pulmonary arteries: No thromboembolic disease. - Segmental pulmonary arteries: No thromboembolic disease. - Subsegmental pulmonary arteries: No thromboembolic disease although evaluation is degraded due to contrast bolus timing. - Additional pulmonary artery findings: The main pulmonary artery is normal in caliber. Lines, tubes, and devices: None. Lung parenchyma and airways: Small calcified likely granuloma is present in the left lung apex, superior left lower lobe and right lower lobe. No consolidation. Linear atelectasis/scarring present in the right middle lobe and basal segment of the right upper lobe, possible partially treated or early inflammation as suggested on the radiograph of 10/03/2024. Central airways are patent. Pleural space: No pneumothorax. Trace right pleural effusion. No left pleural effusion.. Lower neck, lymph nodes, and mediastinum: The imaged thyroid gland is normal. No lymphadenopathy in the supraclavicular, axillary, mediastinal, or hilar regions. Small calcified lymph nodes in the subcarinal region and right hilum are likely the sequela of prior granulomatous infection. Heart, pericardium, and thoracic vessels: The thoracic aorta is normal in caliber , 4-vessel aortic arch with the left vertebral artery arising from the aorta, normal variant. The cardiac chambers are normal in size. No significant coronary artery atherosclerotic calcifications are noted, although the study is not optimized for coronary assessment. No pericardial effusion or thickening. Bones and soft tissues: Thoracic spondylosis. No acute osseous abnormalities. Upper abdomen: No acute abnormality in the imaged upper abdomen. Localizer images: No additional findings. IMPRESSION IMPRESSION: 1. No CT evidence of pulmonary embolism, no signs of right heart strain. 2. Trace right pleural effusion and underlying linear hypoventilation/scarri ng in the right lung base, possibly partially treated or early inflammation as suggested on the radiograph of 10/03. 3. No new consolidation or left pleural effusion. Assistant To The President: YAHAIRA Transcribe Date/Time: Oct 10 2024 3:14P Dictated by : BETH COOK MD This examination was interpreted and the report reviewed and electronically signed by: BETH COOK MD on Oct 10 2024 3:24PM EST [facility] Radiology Study observation (narrative) [facility] CTA Pulmonary arteries for p ulmonary embolus W contrast IVOrdered By: [facility] Provider on 10-10-2024 [facility] CBC W Auto Differential pane l (Bld)on 10-09-2024 Basophils (Bld) [#/Vol] 0.04 10*3/uL [facility] Basophils/100 WBC (Bld) 0.6 % [facility] Differential cell count method Nom (Bld) Auto [facility] Eosinophils (Bld) [#/Vol] 0.04 10*3/uL [facility] Eosinophils/100 WBC (Bld) 0.6 % [facility] Erythrocyte distribution width (RBC) [Ratio] 13.7 % 11.5 - 15.0 % [facility] Hematocrit (Bld) [Volume fraction] 38.4 % 36.0 - 46.0 % [facility] Hemoglobin (Bld) [Mass/Vol] 12.1 g/dL 11.5 - 15.5 g/dL [facility] Immature granulocytes (Bld) [#/Vol] [facility] Immature granulocytes/100 WBC (Bld) 0.1 % [facility] Lymphocytes (Bld) [#/Vol] 2.04 10*3/uL [facility] Lymphocytes/100 WBC (Bld) 30.2 % [facility] MCH (RBC) [Entitic mass] 29.7 pg 26.0 - 34.0 pg [facility] MCHC (RBC) [Mass/Vol] 31.5 g/dL 30.5 - 36.0 g/dL [facility] MCV (RBC) [Entitic vol] 94.3 fL 80.0 - 100.0 fL [facility] Monocytes (Bld) [#/Vol] 0.43 10*3/uL [facility] Monocytes/100 WBC (Bld) 6.4 % [facility] Neutrophils (Bld) [#/Vol] 4.19 10*3/uL [facility] Neutrophils/100 WBC (Bld) 62.1 % [facility] Nucleated RBC (Bld) [#/Vol] [facility] Nucleated RBC/100 WBC (Bld) [Ratio] 0 % /100 WBC [facility] Platelet mean volume (Bld) [Entitic vol] 9.9 fL 9.0 - 12.7 fL [facility] Platelets (Bld) [#/Vol] 348 10*3/uL [facility] RBC (Bld) [#/Vol] 4.07 10*6/uL 3.90 - 5.2 0 m/uL [facility] WBC (Bld) [#/Vol] 6.75 10*3/uL [facility] Basophils (Bld) [#/Vol] 0.04 10*3/uL Normal <0.11 [facility] Comment on above: Order Comment: Speci men Type: BLOOD SPECIMEN Ordering Facility: [facility] Address: [address] [place] [address] Performed By: #### 5 5454-3 #### [facility] CLIA [id number] [address] [place] [address] [place] Basophils/100 WBC (Bld) 0.6 % Normal [facility] Comment on above: Order Comment: Speci men Type: BLOOD SPECIMEN Ordering Facility: [facility] Address: [address] [place] [address] Performed By: #### 5 5454-3 #### [facility] CLIA [id number] [address] [place] [address] [place] Differential cell count method Nom (Bld) Auto Normal [facility] Comment on above: Order Comment: Speci men Type: BLOOD SPECIMEN Ordering Facility: [facility] Address: [address] [place] [address] Performed By: #### 5 5454-3 #### [facility] CLIA [id number] [address] [place] [address] [place] Eosinophils (Bld) [#/Vol] 0.04 10*3/uL Normal <0.46 [facility] Comment on above: Order Comment: Speci men Type: BLOOD SPECIMEN Ordering Facility: [facility] Address: [address] [place] [address] Performed By: #### 5 5454-3 #### [facility] CLIA [id number] [address] [place] [address] [place] Eosinophils/100 WBC (Bld) 0.6 % Normal [facility] Comment on above: Order Comment: Speci men Type: BLOOD SPECIMEN Ordering Facility: [facility] Address: [address] [place] [address] Performed By: #### 5 5454-3 #### [facility] CLIA [id number] [address] [place] [address] [place] Erythrocyte distribution width (RBC) [Ratio] 13.7 % Normal 11.5-15.0 [facility] Comment on above: Order Comment: Speci men Type: BLOOD SPECIMEN Ordering Facility: [facility] Address: [address] [place] [address] Performed By: #### 5 5454-3 #### [facility] CLIA [id number] [address] [place] [address] [place] Hematocrit (Bld) [Volume fraction] 38.4 % Normal 36.0-46.0 [facility] Comment on above: Order Comment: Speci men Type: BLOOD SPECIMEN Ordering Facility: [facility] Address: [address] [place] [address] Performed By: #### 5 5454-3 #### [facility] CLIA [id number] [address] [place] [address] [place] Hemoglobin (Bld) [Mass/Vol] 12.1 g/dL Normal 11.5-15.5 [facility] Comment on above: Order Comment: Speci men Type: BLOOD SPECIMEN Ordering Facility: [facility] Address: [address] [place] [address] Performed By: #### 5 5454-3 #### [facility] CLIA [id number] [address] [place] [address] [place] Immature granulocytes (Bld) [#/Vol] 10*3/uL Normal <0.10 [facility] Comment on above: Order Comment: Speci men Type: BLOOD SPECIMEN Ordering Facility: [facility] Address: [address] [place] [address] Performed By: #### 5 5454-3 #### [facility] CLIA [id number] [address] [place] [address] [place] Immature granulocytes/100 WBC (Bld) 0.1 % Normal [facility] Comment on above: Order Comment: Speci men Type: BLOOD SPECIMEN Ordering Facility: [facility] Address: [address] [place], [place] [address] Performed By: #### 5 5454-3 #### [facility] CLIA [id number] [address] [place] [address] [place] Lymphocytes (Bld) [#/Vol] 2.04 10*3/uL Normal 1.00-4.00 [facility] Comment on above: Order Comment: Speci men Type: BLOOD SPECIMEN Ordering Facility: [facility] Address: [address] [place] [address] Performed By: #### 5 5454-3 #### [facility] CLIA [id number] [address] [place] [address] [place] Lymphocytes/100 WBC (Bld) 30.2 % Normal [facility] Comment on above: Order Comment: Speci men Type: BLOOD SPECIMEN Ordering Facility: [facility] Address: [address] [place] [address] Performed By: #### 5 5454-3 #### [facility] CLIA [id number] [address] [place] [address] [place] MCH (RBC) [Entitic mass] 29.7 pg Normal 26.0-34.0 [facility] Comment on above: Order Comment: Speci men Type: BLOOD SPECIMEN Ordering Facility: [facility] Address: [address] [place] [address] Performed By: #### 5 5454-3 #### [facility] CLIA [id number] [address] [place] [address] [place] MCHC (RBC) [Mass/Vol] 31.5 g/dL Normal 30.5-36.0 [facility] Comment on above: Order Comment: Speci men Type: BLOOD SPECIMEN Ordering Facility: [facility] Address: [address] [place] [address] Performed By: #### 5 5454-3 #### [facility] CLIA [id number] [address] [place] [address] [place] MCV (RBC) [Entitic vol] 94.3 fL Normal 80.0-100.0 [facility] Comment on above: Order Comment: Speci men Type: BLOOD SPECIMEN Ordering Facility: [facility] Address: [address] [place] [address] Performed By: #### 5 5454-3 #### [facility] CLIA [id number] [address] [place] [address] [place] Monocytes (Bld) [#/Vol] 0.43 10*3/uL Normal <0.87 [facility] Comment on above: Order Comment: Speci men Type: BLOOD SPECIMEN Ordering Facility: [facility] Address: [address] [place] [address] Performed By: #### 5 5454-3 #### [facility] CLIA [id number] [address] [place] [address] [place] Monocytes/100 WBC (Bld) 6.4 % Normal [facility] Comment on above: Order Comment: Speci men Type: BLOOD SPECIMEN Ordering Facility: [facility] Address: [address] [place] [address] Performed By: #### 5 5454-3 #### [facility] CLIA [id number] [address] [place] [address] [place] Neutrophils (Bld) [#/Vol] 4.19 10*3/uL Normal 1.45-7.50 [facility] Comment on above: Order Comment: Speci men Type: BLOOD SPECIMEN Ordering Facility: [facility] Address: [address] [place] [address] Performed By: #### 5 5454-3 #### [facility] CLIA [id number] [address] [place] [address] [place] Neutrophils/100 WBC (Bld) 62.1 % Normal [facility] Comment on above: Order Comment: Speci men Type: BLOOD SPECIMEN Ordering Facility: [facility] Address: [address] [place] [address] Performed By: #### 5 5454-3 #### [facility] CLIA [id number] [address] [place] [address] [place] Nucleated RBC (Bld) [#/Vol] 10*3/uL Normal <0.01 [facility] Comment on above: Order Comment: Speci men Type: BLOOD SPECIMEN Ordering Facility: [facility] Address: [address] [place] [address] Performed By: #### 5 5454-3 #### [facility] CLIA [id number] [address] [place] [address] [place] Nucleated RBC/100 WBC (Bld) [Ratio] 0.0 /100 WBC Normal [facility] Comment on above: Order Comment: Speci men Type: BLOOD SPECIMEN Ordering Facility: [facility] Address: [address] [place] [address] Performed By: #### 5 5454-3 #### [facility] CLIA [id number] [address] [place] [address] [place] Platelet mean volume (Bld) [Entitic vol] 9.9 fL Normal 9.0-12.7 [facility] Comment on above: Order Comment: Speci men Type: BLOOD SPECIMEN Ordering Facility: [facility] Address: [address] [place] [address] Performed By: #### 5 5454-3 #### [facility] CLIA [id number] [address] [place] [address] [place] Platelets (Bld) [#/Vol] 348 10*3/uL Normal 150-400 [facility] Comment on above: Order Comment: Speci men Type: BLOOD SPECIMEN Ordering Facility: [facility] Address: [address] [place] [address] Performed By: #### 5 5454-3 #### [facility] CLIA [id number] [address] [place] [address] [place] RBC (Bld) [#/Vol] 4.07 10*6/uL Normal 3.90-5.20 [facility] Comment on above: Order Comment: Speci men Type: BLOOD SPECIMEN Ordering Facility: [facility] Address: [address] [place] [address] Performed By: #### 5 5454-3 #### [facility] CLIA [id number] [address] [place] [address] [place] WBC (Bld) [#/Vol] 6.75 10*3/uL Normal 3.70-11.00 [facility] Comment on above: Order Comment: Speci men Type: BLOOD SPECIMEN Ordering Facility: [facility] Address: [address] [place] [address] Performed By: #### 5 5454-3 #### [facility] CLIA [id number] [address] [place] [address] [place] CNOVon 10-09-2024 CNOV Office Visit (FAMPWS ) GRICEL PTAEL ([id number]) 1985 F Date Time Provider Department 10/09/24 3:00 PM [facility] During your visit today, we recorded the following information about you: Pulse Respiration Blood pressure Weight 86/minute 12/minute 107/76 94.2 kg Last Period 03/11/24 Melvi Swanson MD 10/09/2024 6:04 PM Signed Family Medicine OUTPATIENT VISIT October 08, 2024 CC: Empyema follow up HPI: 39 year old female patient with a history of Tobacco abuse and recent admission for complicated pleural effusion treated with abx, currently on oral augmentin, and chest draim removed 09/16. Suspected to be from oral source-dental caries- and with dentistry, ID and pulm follow up. Was assessed last week where she had significant but improving fatigue without systemic signs of illness or respiratory disease otherwise. Labwork was unremarkable except for mildly elevated ESR, improved from admission, and CXR showed small pleural effusion that was increased from day of chest tube removal. DVT US did not demonstrate IJ thrombus. US to better evaluate pleural effusion not yet obtained. Today, complains of: Still tired. Able to go to bathroom on her own. States her fatigue is slightly worse than last week. Is being more active than last week, however. Now with some worsening shortness of breath on exertion she reports. Not positional. No PND. Some coughing with clear sputum. No wheezing. No sustained significant chest pain or shoulder tip pain, though 2-3 times has had right sided sharp generalized chest pain that self resolved after about 20 seconds. No fevers or chills. No drainage from chest tube site. Diarrhea over last several days. Three episodes over last two days. Mild generalized abdominal pain. No urinary symptoms. Augmentin is due to end today. Review of Systems PAIN ASSESSMENT: Negative for pain, history of chronic pain, or current treatment for a chronic pain condition. GENERAL: No weight loss, or fevers HEENT: Negative for frequent or significant headaches RESPIRATORY: Negative for cough, wheezing, shortness of breath CARDIOVASCULAR: Negative for chest pain, palpitations, PND or orthopnea GI: No nausea, vomiting, or diarrhea or abdominal pain. No [place] bleeding or melana : No history of dysuria, frequency, urgency, or change in urine appearance NEURO: No history of headaches, numbness, weakness, or changes to vision or hearing Health maintenance: Depression Screening Never done Anxiety Screening Never done Hepatitis C Screening Never done HIV Screening Never done DTaP,Tdap,Td Vaccine(1 - Tdap) Never done Hepatitis B Vaccine(1 of 3 - 19+ 3-dose series) Never done Pneumococcal Vaccine(1 of 2 - PCV) Never done Cervical Cancer Screening due on 07/11/2017 Covid-19 Vaccine(2023- season) Never done Mammogram Screening due on 2024 Allergies: ALLERGIES Allergen Reactions Vicodin [Hydrocodon* GI Upset Patient c/o nausea and dizziness Medications: guaiFENesin (MUCINEX) 600 mg 12 hr tablet Take 600 mg by mouth every 12 hours. cyclobenzaprine (FLEXERIL) 10 mg tablet Take 1 tablet by mouth three times a day as needed. amoxicillin-clavulanat e potassium (AUGMENTIN) 875-125 mg per tablet Take 1 tablet by mouth every 12 hours for 21 days. nicotine (NICODERM) 14 mg/24 hr Apply 1 patch as directed every 24 hours. (Patient not taking: Reported on 10/09/2024) Past Medical History: PAST MEDICAL HISTORY Diagnosis Date Infectious mononucleosis Mononucleosis Tobacco abuse since age 15, pack a day Urinary tract infection, site not specified Social History: Social History Tobacco Use Smoking status: Every Day Current packs/day: 1.00 Average packs/day: 1 pack/day for 24.0 years (24.0 ttl pk-yrs) Types: Cigarettes Smokeless tobacco: Current Tobacco comments: Willing to cut down to half pack per da Substance Use Topics Alcohol use: No Drug use: No Family History: Family History Problem Relation Age of Onset Heart Paternal Grandmother HEART PROBLEMS Stroke Maternal Grandmother Diabetes Maternal Grandfather Diabetes Paternal Grandmother Breast Cancer Paternal Aunt None Father None Sister None Brother None Mother BP 107/76 Pulse 86 Resp 12 Wt 94.2 kg (207 lb 9.6 oz) LMP 03/11/2024 (Approximate) SpO2 98% General: Awake, alert, not in acute distress. Ill but not toxic appearing LIFE TRAINER: Answering questions appropriately. No abnormal posturing or positioning. Speech is normal. Strength grossly intact. RESP: No increased WOB on RA but mildly increased WOB when she gets onto exam table. Decreased air entry to mid lung field on right, worse than last week. No other added sounds. CVS: RRR, No murmur. Pulses 2+. GI: Abdomen is soft, non distended, non tender. No masses or hepatomegaly appreciated. Skin (more content not included)... Normal [facility] [Mass/Vol] 1.2 mg/dL High <0.9 [facility] Comment on above: Order Comment: Speci men Type: BLOOD SPECIMENOrdering Facility: [facility] Address: [address] [place] [address] Performed By: #### 2 4323-8, 8797-1, , 1988-07 ####[facility] [id number] [address] [address] [place] Comprehensive metabolic 2000 panelon 10-09-2024 Albumin [Mass/Vol] 4.0 g/dL Normal 3.9-4.9 [facility] Comment on above: Order Comment: Speci men Type: BLOOD SPECIMENOrdering Facility: [facility] Address: [address] [place], [place] [address] Performed By: #### 2 4323-8, 2776-03, , 1988-07 ####[facility] [id number] [address] [address] [place] ALP [Catalytic activity/Vol] 79 U/L Normal 34-123 [facility] Comment on above: Order Comment: Speci men Type: BLOOD SPECIMENOrdering Facility: [facility] Address: [address] [place], [place] [address] Performed By: #### 2 4323-8, 2776-03, , 1987-07 ####[facility] [id number] [address] [address] [place] ALT [Catalytic activity/Vol] 15 U/L Normal 7-38 [facility] Comment on above: Order Comment: Speci men Type: BLOOD SPECIMENOrdering Facility: [facility] Address: [address] [place] [address] Performed By: #### 2 4323-8, 27709-24, , 1987-07 ####[facility] [id number] [address] [address] [place] Anion gap [Moles/Vol] 11 mmol/L Normal 8-15 [facility] Comment on above: Order Comment: Speci men Type: BLOOD SPECIMENOrdering Facility: [facility] Address: [address] [place] [address] Performed By: #### 2 4323-8, 2776-03, 1987-07 ####[facility] [id number] [address] [address] [place] AST [Catalytic activity/Vol] 14 U/L Normal 13-35 [facility] Comment on above: Order Comment: Speci men Type: BLOOD SPECIMENOrdering Facility: [facility] Address: [address] [place], [place] [address] Performed By: #### 2 4323-8, 2776-03, , 1987-07 ####[facility] [id number] [address] [address] [place] Bilirubin [Mass/Vol] mg/dL Low 0.2-1.3 [facility] Comment on above: Order Comment: Speci men Type: BLOOD SPECIMENOrdering Facility: [facility] Address: [address] [place], [place] [address] Performed By: #### 2 4323-8, 2776-03, , 1987-07 ####[facility] [id number] [address] [address] [place] Calcium [Mass/Vol] 9.6 mg/dL Normal 8.5-10.2 [facility] Comment on above: Order Comment: Speci men Type: BLOOD SPECIMENOrdering Facility: [facility] Address: [address] [place], [place] [address] Performed By: #### 2 4323-8, 2776-03, , 1987-07 ####[facility] [id number] [address] [address] [place] Chloride [Moles/Vol] 104 mmol/L Normal 98-107 [facility] Comment on above: Order Comment: Speci men Type: BLOOD SPECIMENOrdering Facility: [facility] Address: [address] [place], [place] [address] Performed By: #### 2 4323-8, 2776-03, 1987-07 ####[facility] [id number] [address] [address] [place] CO2 [Moles/Vol] 28 mmol/L Normal 22-30 [facility] Comment on above: Order Comment: Speci men Type: BLOOD SPECIMENOrdering Facility: [facility] Address: [address] [place], [place] [address] Performed By: #### 2 4323-8, 2776-03, , 1987-07 ####[facility] [id number] [address] [address] [place] Creatinine [Mass/Vol] 0.79 mg/dL Normal 0.58-0.96 [facility] Comment on above: Order Comment: Speci men Type: BLOOD SPECIMENOrdering Facility: [facility] Address: [address] [place] [address] Performed By: #### 2 4323-8, 2776-03, , 1987-07 ####[facility] [id number] [address] [address] [place] eGFRcr SerPlBld CKD-EPI 2020 97 mL/min/1.73m??? Normal >=60 [facility] Comment on above: Order Comment: Speci men Type: BLOOD SPECIMENOrdering Facility: [facility] Address: [address] [place], [place] [address] Result Comment: Rhea mated Glomerular Filtration Rate (eGFR) is calculated using the 2020 CKD-EPI creatinine equation. This equation utilizes serum creatinine, sex, and age as parameters. The creatinine assay has traceable calibration to isotope dilution-mass spectrometry. Refer to KDIGO guidelines for clinical interpretation. In patients with unstable renal function, e.g. those with acute kidney injury, the eGFR may not accurately reflect actual GFR. Performed By: #### 2 4323-8, 2776-03, , 1987-07 ####[facility] [id number] [address] [address] [place] Glucose [Mass/Vol] 71 mg/dL Low 74-99 [facility] Comment on above: Order Comment: Speci men Type: BLOOD SPECIMENOrdering Facility: [facility] Address: [address] [id number] Result Comment: The [place] [employer] (ADA) provides guidance for cutoff values for fasting glucose and random glucose. The ADA defines fasting as no caloric intake for at least 8 hours. Fasting plasma glucose results between 100 to 125 mg/dL indicate increased risk for diabetes (prediabetes). Fasting plasma glucose results greater than or equal to 126 mg/dL meet the criteria for diagnosis of diabetes. In the absence of unequivocal hyperglycemia, results should be confirmed by repeat testing. In a patient with classic symptoms of hyperglycemia or hyperglycemic crisis, random plasma glucose results greater than or equal to 200 mg/dL meet the criteria for diagnosis of diabetes. Reference: Standards of Medical Care in Diabetes 2016, [place] [employer]. Diabetes Care. 2016.39(Suppl 1). Performed By: #### 2 4323-8, 277-, , 1987-07 ####[facility] [id number] [place] [id number] [place] Potassium [Moles/Vol] 4.4 mmol/L Normal 3.7-5.1 [facility] Comment on above: Order Comment: Speci men Type: BLOOD SPECIMENOrdering Facility: [facility] Address: [address] [place] [address] Performed By: #### 2 4323-8, 27709-24, , 1987-07 ####[facility] [id number] [place] [id number] [place] Protein [Mass/Vol] 7.5 g/dL Normal 6.3-8.0 [facility] Comment on above: Order Comment: Speci men Type: BLOOD SPECIMENOrdering Facility: [facility] Address: [address] [place] [address] Performed By: #### 2 4323-8, 27709-24, , 1987-07 ####[facility] [id number] [address] [address] [place] Sodium [Moles/Vol] 143 mmol/L Normal 136-144 [facility] Comment on above: Order Comment: Speci men Type: BLOOD SPECIMENOrdering Facility: [facility] Address: [address] [place], [place] [address] Performed By: #### 2 4323-8, 2777-, , 1987-07 ####[facility] [id number] [address] [address] [place] Urea nitrogen [Mass/Vol] 10 mg/dL Normal 7-21 [facility] Comment on above: Order Comment: Speci men Type: BLOOD SPECIMENOrdering Facility: [facility] Address: [address] [place], [place] [address] Performed By: #### 2 4323-8, 2777-, , 1987-07 ####[facility] [id number] [address] [address] [place] ESR Westergren method (Bld) [Velocity]on 10-09-2024 ESR (Bld) [Velocity] 40 mm/h High 0-20 [facility] Comment on above: Order Comment: Speci men Type: BLOOD SPECIMEN [facility] Address: [address] [place], [place] [address] Performed By: #### 5 5454-3 #### [facility] [id number] [address] [place] [address] [place] Magnesium SerPl-mCncon 10-09 Magnesium [Mass/Vol] 2.1 mg/dL Normal 1.7-2.3 [facility] Comment on above: Order Comment: Speci men Type: BLOOD SPECIMENOrdering Facility: [facility] Address: [address] [place], [place] [address] Performed By: #### 2 4323-8, 2777-1, , 1987-07 ####[facility] [id number] [place] [id number] [place] Phosphate SerPl-mCncon 10-09 Phosphate [Mass/Vol] 3.1 mg/dL Normal 2.7-4.8 [facility] Comment on above: Order Comment: Speci men Type: BLOOD SPECIMENOrdering Facility: [facility] Address: [address] [place] [address] Performed By: #### 2 4323-8, 2777-1, , 1987-07 ####[facility] [id number] [place] [id number] [place] XR CHEST 2V FRONTAL/LATon XR CHEST 2V FRONTAL/LAT * * *Final Report* * * DATE OF EXAM: Oct 09 2024 4:02PM WOX 5291 - XR CHEST 2V FRONTAL/LAT / PROCEDURE REASON: Empyema (HCC) * * * * Physician Interpretation * * * * EXAMINATION: CHEST RADIOGRAPH (2 VIEW FRONTAL and LATERAL) CLINICAL HISTORY: Empyema (HCC) MQ: XC2_6 EXAM DATE/TIME: 10/09/2024 4:02 PM COMPARISON: Chest x-ray dated 10/03/2024 RESULT: Lines, tubes, and devices: None. Lungs and pleura: Bandlike opacity at the right lung base without substantial change. Stable small right pleural effusion. No pneumothorax. Cardiomediastinal silhouette: Normal cardiomediastinal silhouette. Bones and soft tissues: Unremarkable. IMPRESSION: Stable small right pleural effusion with subjacent bandlike opacity. Assistant To The President: PSCB Transcribe Date/Time: Oct 09 2024 4:18P Dictated by : KAMI HANNON MD This examination was interpreted and the report reviewed and electronically signed by: KAMI HANNON MD on Oct 09 2024 4:19PM EST [id number] Normal [facility] XR Chest PA and Lateralon IMPRESSION: Stable small right pleural effusion with subjacent bandlike opacity. Assistant To The President: YAHAIRA Transcribe Date/Time: Oct 09 2024 4:18P Dictated by : KAMI HANNON MD This examination was interpreted and the report reviewed and electronically signed by: KAMI HANNON MD on Oct 09 2024 4:19PM [facility] DIVISION OF RADIOLOGY * * *Final Report* * * DATE OF EXAM: Oct 09 2024 4:02PM WOX 5291 - XR CHEST 2V FRONTAL/LAT / PROCEDURE REASON: Empyema (HCC) * * * * Physician Interpretation * * * * EXAMINATION: CHEST RADIOGRAPH (2 VIEW FRONTAL & LATERAL) CLINICAL HISTORY: Empyema (HCC) MQ: XC2_6 EXAM DATE/TIME: 10/09/2024 4:02 PM COMPARISON: Chest x-ray dated 10/03/2024 RESULT: Lines, tubes, and devices: None. Lungs and pleura: Bandlike opacity at the right lung base without substantial change. Stable small right pleural effusion. No pneumothorax. Cardiomediastinal silhouette: Normal cardiomediastinal silhouette. Bones and soft tissues: Unremarkable. DIVISION OF RADIOLOGY Provider, [facility] - 10/09/2024 * * *Final Report* * * DATE OF EXAM: Oct 09 2024 4:02PM WOX 5291 - XR CHEST 2V FRONTAL/LAT / PROCEDURE REASON: Empyema (HCC) * * * * Physician Interpretation * * * * EXAMINATION: CHEST RADIOGRAPH (2 VIEW FRONTAL & LATERAL) CLINICAL HISTORY: Empyema (HCC) MQ: XC2_6 EXAM DATE/TIME: 10/09/2024 4:02 PM COMPARISON: Chest x-ray dated 10/03/2024 RESULT: Lines, tubes, and devices: None. Lungs and pleura: Bandlike opacity at the right lung base without substantial change. Stable small right pleural effusion. No pneumothorax. Cardiomediastinal silhouette: Normal cardiomediastinal silhouette. Bones and soft tissues: Unremarkable. IMPRESSION IMPRESSION: Stable small right pleural effusion with subjacent bandlike opacity. Assistant To The President: YAHAIRA Transcribe Date/Time: Oct 09 2024 4:18P Dictated by : KAMI HANNON MD This examination was interpreted and the report reviewed and electronically signed by: KAMI HANNON MD on Oct 09 2024 4:19PM EST [facility] Radiology Study observation (narrative) [facility] XR Chest PA and LateralOrder ed By: [facility] Provider on 10-09-2024 [facility] CNPNon 10-07-2024 CNPN Telephone (FAMPWS) GRICEL PATEL ([id number]) 1985 F Date Time Provider Department 10/07/24 [facility] visit today, we recorded the following information about you: Cecile Curry LPN 10/07/2024 10:08 AM Addendum Order for the bilateral jugular artery needs changed to vascular lab STAT and will be completed at [facility]. Stacie Melo 10/07/2024 11:10 AM Signed Spoke with staff at [place]. They can do the jugular ultrasound but not the effusion ultrasound. [facility] can do the effusion ultrasound. Would this be acceptable? Please advise for scheduling purposes. Cecile Jacobson LPN 10/07/2024 5:32 PM Signed Yes and ok for or Monday. Allergies As of Date: 10/07/2024 Noted Allergy Reaction VICODIN (HYDROCODONE-ACETAMINO PHE*02/01/2005 8 - GI Upset Comments: Patient c/o nausea and dizziness Date Reviewed: 10/02/2024 Reviewed by: Cher Carpio MA - Fully Assessed Prescriptions as of 10/10/2024 - iv contrast (will be provided with radiology test) CT Chest PE -Inject, intravenously, once for 1 dose.No IV access, insert saline lock prior to the beginning of sedation, infusion, injection of imaging exam. Discontinue saline lock post exam. If Pt. has a central line or IVAD, may access for administration according to line specific nursing protocol. Once exam is complete flush line and de-access according to line specific nursing protocol in the CT contrast administration guidelines link. - amoxicillin-clavulanat e potassium (AUGMENTIN) 875-125 mg per tablet Take 1 tablet by mouth every 12 hours for 21 days. - guaiFENesin (MUCINEX) 600 mg 12 hr tablet Take 600 mg by mouth every 12 hours. - nicotine (NICODERM) 14 mg/24 hr Apply 1 patch as directed every 24 hours. - cyclobenzaprine (FLEXERIL) 10 mg tablet Take 1 tablet by mouth three times a day as needed. Problem List As Of Date 10/07/2024 Noted Resolved Genital herpes [A60.00] 07/10/2012 Encounter Status:Closed by STACIE MELO on 10/10/24 Normal [facility] DVT UPPER BILon 5 DVT UPPER NAINA * * *Final Report* * * DATE OF EXAM: Oct 07 2024 5:19PM LDU 1002 - US DVT UPPER NAINA / PROCEDURE REASON: multiple diagnoses * * * * Physician Interpretation * * * * EXAMINATION: RIGHT AND LEFT UPPER EXTREMITY DEEP VENOUS ULTRASOUND WITH DOPPLER IMAGING CLINICAL HISTORY: Symptoms of jugular vein thrombosis TECHNIQUE: Grayscale with compression maneuvers where accessible, color and spectral Doppler of the right and left internal jugular, subclavian, and axillary veins was performed. Grayscale with compression maneuvers of the right and left basilic, brachial and cephalic veins was also performed. Images were obtained and stored in a permanent archive. MQ: USUEB_1 COMPARISON: None RESULT: RIGHT UPPER EXTREMITY DEEP VEINS Internal Jugular vein: Normal compression, normal spontaneous flow. Subclavian vein: Normal, spontaneous flow. Axillary vein: Normal compression, normal spontaneous flow. Brachial vein: Normal compression SUPERFICIAL VEINS Basilic vein: Normal compression. Cephalic vein: Normal compression. LEFT UPPER EXTREMITY DEEP VEINS Internal Jugular vein: Normal compression, normal spontaneous flow. Subclavian vein: Normal, spontaneous flow. Axillary vein: Normal compression, normal spontaneous flow. Brachial vein: Suboptimal visualization. No definite thrombosis. SUPERFICIAL VEINS Basilic vein: Normal compression. Cephalic vein: Normal compression. IMPRESSION: Negative study for DVT in the left and right upper extremity. There is suboptimal visualization of the left brachial vein however. Negative study for superficial thrombophlebitis in the imaged segments of the left and right upper extremity. Assistant To The President: YAHAIRA Transcribe Date/Time: Oct 08 2024 1:00P Dictated by : KHRIS ROTH MD This examination was interpreted and the report reviewed and electronically signed by: KHRIS ROTH MD on Oct 08 2024 1:01PM EST [id number] Normal [facility] CBC W Auto Differential pane l (Bld)on 10-03-2024 Basophils (Bld) [#/Vol] 0.03 10*3/uL Normal <0.11 [facility] Comment on above: Order Comment: Speci men Type: BLOOD SPECIMEN [facility] Address: [address] [place] [address] Performed By: #### 5 0190-8, LIPNF, 55982-7, TSHRF #### [facility] CLIA [id number] [address] [place] [address] [place] Basophils/100 WBC (Bld) 0.5 % Normal [facility] Comment on above: Order Comment: Speci men Type: BLOOD SPECIMEN [facility] Address: [address] [place] [address] Performed By: #### 5 0190-8, LIPNF, 68985-7, TSHRF #### [facility] CLIA [id number] [address] [place] [address] [place] Differential cell count method Nom (Bld) Auto Normal [facility] Comment on above: Order Comment: Speci men Type: BLOOD SPECIMEN [facility] Address: [address] [place] [address] Performed By: #### 5 0190-8, LIPNF, 92401-5, TSHRF #### [facility] CLIA [id number] [address] [place] [address] [place] Eosinophils (Bld) [#/Vol] 0.14 10*3/uL Normal <0.46 [facility] Comment on above: Order Comment: Speci men Type: BLOOD SPECIMEN [facility] Address: [address] [place] [address] Performed By: #### 5 0190-8, LIPNF, 78523-6, TSHRF #### [facility] CLIA [id number] [address] [place] [address] [place] Eosinophils/100 WBC (Bld) 2.5 % Normal [facility] Comment on above: Order Comment: Speci men Type: BLOOD SPECIMEN [facility] Address: [address] [place] [address] Performed By: #### 5 0190-8, LIPNF, 42491-3, TSHRF #### [facility] CLIA [id number] [address] [place] [address] [place] Erythrocyte distribution width (RBC) [Ratio] 13.6 % Normal 11.5-15.0 [facility] Comment on above: Order Comment: Speci men Type: BLOOD SPECIMEN [facility] Address: [address] [place] [address] Performed By: #### 5 0190-8, LIPNF, 93569-3, TSHRF #### [facility] CLIA [id number] [address] [place] [address] [place] Hematocrit (Bld) [Volume fraction] 35.6 % Low 36.0-46.0 [facility] Comment on above: Order Comment: Speci men Type: BLOOD SPECIMEN [facility] Address: [address] [place] [address] Performed By: #### 5 0190-8, LIPNF, 56118-0, TSHRF #### [facility] CLIA [id number] [address] [place] [address] [place] Hemoglobin (Bld) [Mass/Vol] 11.5 g/dL Normal 11.5-15.5 [facility] Comment on above: Order Comment: Speci men Type: BLOOD SPECIMEN [facility] Address: [address] [place] [address] Performed By: #### 5 0190-8, LIPNF, 54761-3, TSHRF #### [facility] CLIA [id number] [address] [place] [address] [place] Immature granulocytes (Bld) [#/Vol] 10*3/uL Normal <0.10 [facility] Comment on above: Order Comment: Speci men Type: BLOOD SPECIMEN [facility] Address: [address] [place] [address] Performed By: #### 5 0190-8, LIPNF, 02328-8, TSHRF #### [facility] CLIA [id number] [address] [place] [address] [place] Immature granulocytes/100 WBC (Bld) 0.2 % Normal [facility] Comment on above: Order Comment: Speci men Type: BLOOD SPECIMEN [facility] Address: [address] [place] [address] Performed By: #### 5 0190-8, LIPNF, 18887-9, TSHRF #### [facility] CLIA [id number] [address] [place] [address] [place] Lymphocytes (Bld) [#/Vol] 1.89 10*3/uL Normal 1.00-4.00 [facility] Comment on above: Order Comment: Speci men Type: BLOOD SPECIMEN [facility] Address: [address] [place] [address] Performed By: #### 5 0190-8, LIPNF, 69096-1, TSHRF #### [facility] CLIA [id number] [address] [place] [address] [place] Lymphocytes/100 WBC (Bld) 33.2 % Normal [facility] Comment on above: Order Comment: Speci men Type: BLOOD SPECIMEN [facility] Address: [address] [place] [address] Performed By: #### 5 0190-8, LIPNF, 58203-8, TSHRF #### [facility] CLIA [id number] [address] [place] [address] [place] MCH (RBC) [Entitic mass] 29.3 pg Normal 26.0-34.0 [facility] Comment on above: Order Comment: Speci men Type: BLOOD SPECIMEN [facility] Address: [address] [place] [address] Performed By: #### 5 0190-8, LIPNF, 60671-5, TSHRF #### [facility] CLIA [id number] [address] [place] [address] [place] MCHC (RBC) [Mass/Vol] 32.3 g/dL Normal 30.5-36.0 [facility] Comment on above: Order Comment: Speci men Type: BLOOD SPECIMEN [facility] Address: [address] [place] [address] Performed By: #### 5 0190-8, LIPNF, 69100-4, TSHRF #### [facility] CLIA [id number] [address] [place] [address] [place] MCV (RBC) [Entitic vol] 90.8 fL Normal 80.0-100.0 [facility] Comment on above: Order Comment: Speci men Type: BLOOD SPECIMEN [facility]: [facility] Address: [address] [place] [address] Performed By: #### 5 0190-8, LIPNF, 13012-0, TSHRF #### [facility] CLIA [id number] [address] [place] [address] [place] Monocytes (Bld) [#/Vol] 0.36 10*3/uL Normal <0.87 [facility] Comment on above: Order Comment: Speci men Type: BLOOD SPECIMEN [facility]: [facility] Address: [address] [place], [place] [address] Performed By: #### 5 0190-8, LIPNF, 35706-8, TSHRF #### [facility] CLIA [id number] [address] [place] [address] [place] Monocytes/100 WBC (Bld) 6.3 % Normal [facility] Comment on above: Order Comment: Speci men Type: BLOOD SPECIMEN [facility]ing Facility: [facility] Address: [address] [place] [address] Performed By: #### 5 0190-8, LIPNF, 36112-8, TSHRF #### [facility] CLIA [id number] [address] [place] [address] [place] Neutrophils (Bld) [#/Vol] 3.27 10*3/uL Normal 1.45-7.50 [facility] Comment on above: Order Comment: Speci men Type: BLOOD SPECIMEN [facility]: [facility] Address: [address] [place] [address] Performed By: #### 5 0190-8, LIPNF, 99040-3, TSHRF #### [facility] CLIA [id number] [address] [place] [address] [place] Neutrophils/100 WBC (Bld) 57.3 % Normal [facility] Comment on above: Order Comment: Speci men Type: BLOOD SPECIMEN [facility]ing Facility: [facility] Address: [address] [place] [address] Performed By: #### 5 0190-8, LIPNF, 35304-9, TSHRF #### [facility] CLIA [id number] [address] [place] [address] [place] Nucleated RBC (Bld) [#/Vol] 10*3/uL Normal <0.01 [facility] Comment on above: Order Comment: Speci men Type: BLOOD SPECIMEN Ordering Facility: [facility] Address: [address] [place] [address] Performed By: #### 5 0190-8, LIPNF, 48126-0, TSHRF #### [facility] CLIA [id number] [address] [place] [address] [place] Nucleated RBC/100 WBC (Bld) [Ratio] 0.0 /100 WBC Normal [facility] Comment on above: Order Comment: Speci men Type: BLOOD SPECIMEN Ordering Facility: [facility] Address: [address] [place] [address] Performed By: #### 5 0190-8, LIPNF, 68238-8, TSHRF #### [facility] CLIA [id number] [address] [place] [address] [place] Platelet mean volume (Bld) [Entitic vol] 8.9 fL Low 9.0-12.7 [facility] Comment on above: Order Comment: Speci men Type: BLOOD SPECIMEN [facility] [facility] Address: [address] [place] [address] Performed By: #### 5 0190-8, LIPNF, 91860-4, TSHRF #### [facility] CLIA [id number] [address] [place] [address] [place] Platelets (Bld) [#/Vol] 310 10*3/uL Normal 150-400 [facility] Comment on above: Order Comment: Speci men Type: BLOOD SPECIMEN Ordering Facility: [facility] Address: [address] [place] [address] Performed By: #### 5 0190-8, LIPNF, 96438-5, TSHRF #### [facility] CLIA [id number] [address] [place] [address] [place] RBC (Bld) [#/Vol] 3.92 10*6/uL Normal 3.90-5.20 [facility] Comment on above: Order Comment: Speci men Type: BLOOD SPECIMEN Ordering Facility: [facility] Address: [address] [place] [address] Performed By: #### 5 0190-8, LIPNF, 87165-1, TSHRF #### [facility] CLIA [id number] [address] [place] [address] [place] WBC (Bld) [#/Vol] 5.70 10*3/uL Normal 3.70-11.00 [facility] Comment on above: Order Comment: Speci men Type: BLOOD SPECIMEN Ordering Facility: [facility] Address: [address] [place] [address] Performed By: #### 5 0190-8, LIPNF, 46860-3, TSHRF #### [facility] CLIA [id number] [address] [place] [address] OF [place] CNPNon 10-03-2024 CNPN Telephone (FAMPWS) GRICEL PATEL ([id number]) 1985 F Date Time Provider Department 10/03/24 MELVI SWANSON [facility] During your visit today, we recorded the following information about you: Melvi Swanson MD 10/03/2024 3:33 PM Signed ID October 15 Fernando Owens Dec 06 Kermit Spoke to pt. Has above follow ups. Clarified she is able to walk a flight of stairs and can walk 1/4 mile before needing to stop. Not having Shortness of Breath or coughing. Labs grossly unremarkable though inflammatory markers IP. CXR not yet read but will add on pleural US given appearance of costophrenic angle blunting on image. Melvi Swanson MD 10/03/2024 5:20 PM Signed Addended by: MELVI SWANSON on: 10/03/2024 05:20 PM Modules accepted: Orders Melvi Swanson MD 10/04/2024 2:44 PM Signed Addended by: MELVI SWANSON on: 10/04/2024 02:44 PM Modules accepted: Orders Melvi Swanson MD 10/04/2024 4:32 PM Signed Addended by: MELVI SWANSON on: 10/04/2024 04:32 PM Modules accepted: Orders Allergies As of Date: 10/03/2024 Noted Allergy Reaction VICODIN (HYDROCODONE-ACETAMINO PHE*02/01/2005 8 - GI Upset Comments: Patient c/o nausea and dizziness Date Reviewed: 10/02/2024 Reviewed by: Cher Carpio MA - Fully Assessed Primary Visit Diagnosis:Pleural effusion [J90] Other Visit Diagnoses:Generalized weakness [R53.1] Muscular deconditioning [R29.898] Fatigue, unspecified type [R53.83] Order(s): CHEST WALL/SOFT TISSUE [[id number]] Order #: [id number] FUTURE ARM VEIN [facility] [[id number]] Order #: [id number] FUTURE Prescriptions as of 10/04/2024 - amoxicillin-clavulanat e potassium (AUGMENTIN) 875-125 mg per tablet Take 1 tablet by mouth two times a day. - guaiFENesin (MUCINEX) 600 mg 12 hr tablet Take 600 mg by mouth every 12 hours. - nicotine (NICODERM) 14 mg/24 hr Apply 1 patch as directed every 24 hours. - naproxen (NAPROSYN) 500 mg tablet Take 1 tablet by mouth two times a day as needed (FOR PAIN - TAKE WITH FOOD.). - cyclobenzaprine (FLEXERIL) 10 mg tablet Take 1 tablet by mouth three times a day as needed. Problem List As Of Date 10/03/2024 Noted Resolved Genital herpes [A60.00] 07/10/2012 Encounter Status:Closed by MELVI SWANSON on 10/03/24 [facility] Telephone (FAMPWS) GRICEL PATEL ([id number]) 1985 F Date Time Provider Department 10/03/24 MELVI SWANSON FAMPWS During your visit today, we recorded the following information about you: Allergies As of Date: 10/03/2024 Noted Allergy Reaction VICODIN (HYDROCODONE-ACETAMINO PHE*02/01/2005 8 - GI Upset Comments: Patient c/o nausea and dizziness Date Reviewed: 10/02/2024 Reviewed by: Cher Carpio MA - Fully Assessed Prescriptions as of 10/04/2024 - amoxicillin-clavulanat e potassium (AUGMENTIN) 875-125 mg per tablet Take 1 tablet by mouth two times a day. - guaiFENesin (MUCINEX) 600 mg 12 hr tablet Take 600 mg by mouth every 12 hours. - nicotine (NICODERM) 14 mg/24 hr Apply 1 patch as directed every 24 hours. - naproxen (NAPROSYN) 500 mg tablet Take 1 tablet by mouth two times a day as needed (FOR PAIN - TAKE WITH FOOD.). - cyclobenzaprine (FLEXERIL) 10 mg tablet Take 1 tablet by mouth three times a day as needed. Problem List As Of Date 10/03/2024 Noted Resolved Genital herpes [A60.00] 07/10/2012 Encounter Status:Closed by SKY MELVI on 10/03/24 Normal [facility] CRP SerPl-mCncon 10-03-2024 CRP [Mass/Vol] mg/L Normal <0.9 [facility] Comment on above: Order Comment: Speci men Type: BLOOD SPECIMENOrdering Facility: [facility] Address: [address] [place] [address] Performed By: #### 1 988-5 ####[facility] [id number] [place] [address] [place] Comprehensive metabolic 2000 panelon 10-03-2024 Albumin [Mass/Vol] 3.7 g/dL Low 3.9-4.9 [facility] Comment on above: Order Comment: Speci men Type: BLOOD SPECIMEN Ordering Facility: [facility] Address: [address] [place] [address] Performed By: #### 5 5454-3 #### [facility] CLIA [id number] [address] [place], [place] [address] [place] ALP [Catalytic activity/Vol] 78 U/L Normal 34-123 [facility] Comment on above: Order Comment: Speci men Type: BLOOD SPECIMEN Ordering Facility: [facility] Address: [address] [place] [address] Performed By: #### 5 5454-3 #### [facility] CLIA [id number] [address] [place], [place] [address] [place] ALT [Catalytic activity/Vol] 31 U/L Normal 7-38 [facility] Comment on above: Order Comment: Speci men Type: BLOOD SPECIMEN Ordering Facility: [facility] Address: [address] [place] [address] Performed By: #### 5 5454-3 #### [facility] CLIA [id number] [address] [place] [address] [place] Anion gap [Moles/Vol] 13 mmol/L Normal 8-15 [facility] Comment on above: Order Comment: Speci men Type: BLOOD SPECIMEN Ordering Facility: [facility] Address: [address] [place] [address] Performed By: #### 5 5454-3 #### [facility] CLIA [id number] [address] [place] [address] [place] AST [Catalytic activity/Vol] 28 U/L Normal 13-35 [facility] Comment on above: Order Comment: Speci men Type: BLOOD SPECIMEN Ordering Facility: [facility] Address: [address] [place], [place] [address] Performed By: #### 5 5454-3 #### [facility] CLIA [id number] [address] [place], [place] [address] [place] Bilirubin [Mass/Vol] 0.3 mg/dL Normal 0.2-1.3 [facility] Comment on above: Order Comment: Speci men Type: BLOOD SPECIMEN Ordering Facility: [facility] Address: [address] [place], [place] [address] Performed By: #### 5 5454-3 #### [facility] CLIA [id number] [address] [place], [place] [address] [place] Calcium [Mass/Vol] 9.8 mg/dL Normal 8.5-10.2 [facility] Comment on above: Order Comment: Speci men Type: BLOOD SPECIMEN Ordering Facility: [facility] Address: [address] [place] [address] Performed By: #### 5 5454-3 #### [facility] CLIA [id number] [address] [place] [address] [place] Chloride [Moles/Vol] 101 mmol/L Normal 98-107 [facility] Comment on above: Order Comment: Speci men Type: BLOOD SPECIMEN Ordering Facility: [facility] Address: [address] [place] [address] Performed By: #### 5 5454-3 #### [facility] CLIA [id number] [address] [place] [address] [place] CO2 [Moles/Vol] 27 mmol/L Normal 22-30 [facility] Comment on above: Order Comment: Speci men Type: BLOOD SPECIMEN Ordering Facility: [facility] Address: [address] [place], [place] [address] Performed By: #### 5 5454-3 #### [facility] CLIA [id number] [address] [place], [place] [address] [place] Creatinine [Mass/Vol] 0.94 mg/dL Normal 0.58-0.96 [facility] Comment on above: Order Comment: Speci men Type: BLOOD SPECIMEN Ordering Facility: [facility] Address: [address] [place], [place] [address] Performed By: #### 5 5454-3 #### [facility] CLIA [id number] [address] [place] [address] [place] Creatinine and Glomerular filtration rate.predicted panel (S/P/Bld) 79 mL/min/1.73m??? Normal >=60 [facility] Comment on above: Order Comment: Chidi muhammad Type: BLOOD SPECIMEN Ordering Facility: [facility] Address: [address] [place] [address] Result Comment: Rhae mated Glomerular Filtration Rate (eGFR) is calculated using the 2020 CKD-EPI creatinine equation. This equation utilizes serum creatinine, sex, and age as parameters. The creatinine assay has traceable calibration to isotope dilution-mass spectrometry. Refer to KDIGO guidelines for clinical interpretation. In patients with unstable renal function, e.g. those with acute kidney injury, the eGFR may not accurately reflect actual GFR. Performed By: #### 5 5454-3 #### [facility] CLIA [id number] [address] [place] [address] [place] Glucose [Mass/Vol] 100 mg/dL High 74-99 [facility] Comment on above: Order Comment: Chidi muhammad Type: BLOOD SPECIMEN Ordering Facility: [facility] Address: [address] [place] [address] Result Comment: The [place] [employer] (ADA) provides guidance for cutoff values for fasting glucose and random glucose. The ADA defines fasting as no caloric intake for at least 8 hours. Fasting plasma glucose results between 100 to 125 mg/dL indicate increased risk for diabetes (prediabetes). Fasting plasma glucose results greater than or equal to 126 mg/dL meet the criteria for diagnosis of diabetes. In the absence of unequivocal hyperglycemia, results should be confirmed by repeat testing. In a patient with classic symptoms of hyperglycemia or hyperglycemic crisis, random plasma glucose results greater than or equal to 200 mg/dL meet the criteria for diagnosis of diabetes. Reference: Standards of Medical Care in Diabetes 2016, [place] [employer]. Diabetes Care. 2016.39(Suppl 1). Performed By: #### 5 5454-3 #### [facility] CLIA [id number] [address] [place] [address] [place] Potassium [Moles/Vol] 4.1 mmol/L Normal 3.7-5.1 [facility] Comment on above: Order Comment: Speci men Type: BLOOD SPECIMEN Ordering Facility: [facility] Address: [address] [place] [address] Performed By: #### 5 5454-3 #### [facility] CLIA [id number] [address] [place] [address] [place] Protein [Mass/Vol] 7.4 g/dL Normal 6.3-8.0 [facility] Comment on above: Order Comment: Speci men Type: BLOOD SPECIMEN Ordering Facility: [facility] Address: [address] [place] [address] Performed By: #### 5 5454-3 #### [facility] CLIA [id number] [address] [place] [address] [place] Sodium [Moles/Vol] 141 mmol/L Normal 136-144 [facility] Comment on above: Order Comment: Speci men Type: BLOOD SPECIMEN Ordering Facility: [facility] Address: [address] [place] [address] Performed By: #### 5 5454-3 #### [facility] CLIA [id number] [address] [place] [address] [place] Urea nitrogen [Mass/Vol] 13 mg/dL Normal 7-21 [facility] Comment on above: Order Comment: Speci men Type: BLOOD SPECIMEN Ordering Facility: [facility] Address: [address] [place] [address] Performed By: #### 5 5454-3 #### [facility] CLIA [id number] [address] [place] [address] [place] ESR Westergren method (Bld) [Velocity]on 10-03-2024 ESR (Bld) [Velocity] 35 mm/h High 0-20 [facility] Comment on above: Order Comment: Speci men Type: BLOOD SPECIMENOrdering Facility: [facility] Address: [address] [place] [address] Performed By: #### 4 537-7 ####[facility] [id number] [place] [address] [place] Magnesium SerPl-mCncon 10-03 Magnesium [Mass/Vol] 1.9 mg/dL Normal 1.7-2.3 [facility] Comment on above: Order Comment: Speci men Type: BLOOD SPECIMEN Ordering Facility: [facility] Address: [address] [place] [address] Performed By: #### 5 5454-3 #### [facility] CLIA [id number] [address] [place] [address] [place] Phosphate SerPl-mCncon 10-03 Phosphate [Mass/Vol] 4.5 mg/dL Normal 2.7-4.8 [facility] Comment on above: Order Comment: Speci men Type: BLOOD SPECIMEN Ordering Facility: [facility] Address: [address] [place] [address] Performed By: #### 5 5454-3 #### [facility] CLIA [id number] [address] [place] [address] [place] XR CHEST 2V FRONTAL/LATon XR CHEST 2V FRONTAL/LAT * * *Final Report* * * DATE OF EXAM: Oct 03 2024 1:49PM [id number] - XR CHEST 2V FRONTAL/LAT / PROCEDURE REASON: Pleural effusion * * * * Physician Interpretation * * * * EXAMINATION: CHEST RADIOGRAPH (2 VIEW FRONTAL and LATERAL) CLINICAL HISTORY: Pleural effusion MQ: XC2_6 EXAM DATE/TIME: 10/03/2024 1:49 PM COMPARISON: No relevant prior studies available. RESULT: Lines, tubes, and devices: None. Lungs and pleura: Small loculated right pleural effusion. Minimal basal atelectasis. Minimal linear atelectasis at the left base. Upper lung major are clear. No pneumothorax Cardiomediastinal silhouette: Normal cardiomediastinal silhouette. Bones and soft tissues: Unremarkable. IMPRESSION: Right-sided pleural fluid and atelectasis. Minimal linear atelectasis at the left base Assistant To The President: PSCB Transcribe Date/Time: Oct 03 2024 3:34P Dictated by : DAISY JENKINS MD This examination was interpreted and the report reviewed and electronically signed by: DAISY JENKINS MD on Oct 03 2024 3:35PM EST [id number] Normal [facility] XR Chest PA and Lateralon IMPRESSION: Right-sided pleural fluid and atelectasis. Minimal linear atelectasis at the left base Assistant To The President: PSCB Transcribe Date/Time: Oct 03 2024 3:34P Dictated by : DAISY JENKINS MD This examination was interpreted and the report reviewed and electronically signed by: DAISY JENKINS MD on Oct 03 2024 3:35PM EST DIVISION OF RADIOLOGY * * *Final Report* * * DATE OF EXAM: Oct 03 2024 1:49PM [id number] - XR CHEST 2V FRONTAL/LAT / PROCEDURE REASON: Pleural effusion * * * * Physician Interpretation * * * * EXAMINATION: CHEST RADIOGRAPH (2 VIEW FRONTAL & LATERAL) CLINICAL HISTORY: Pleural effusion MQ: XC2_6 EXAM DATE/TIME: 10/03/2024 1:49 PM COMPARISON: No relevant prior studies available. RESULT: Lines, tubes, and devices: None. Lungs and pleura: Small loculated right pleural effusion. Minimal basal atelectasis. Minimal linear atelectasis at the left base. Upper lung major are clear. No pneumothorax Cardiomediastinal silhouette: Normal cardiomediastinal silhouette. Bones and soft tissues: Unremarkable. DIVISION OF RADIOLOGY Provider, [facility] - 10/03/2024 * * *Final Report* * * DATE OF EXAM: Oct 03 2024 1:49PM [id number] - XR CHEST 2V FRONTAL/LAT / PROCEDURE REASON: Pleural effusion * * * * Physician Interpretation * * * * EXAMINATION: CHEST RADIOGRAPH (2 VIEW FRONTAL & LATERAL) CLINICAL HISTORY: Pleural effusion MQ: XC2_6 EXAM DATE/TIME: 10/03/2024 1:49 PM COMPARISON: No relevant prior studies available. RESULT: Lines, tubes, and devices: None. Lungs and pleura: Small loculated right pleural effusion. Minimal basal atelectasis. Minimal linear atelectasis at the left base. Upper lung major are clear. No pneumothorax Cardiomediastinal silhouette: Normal cardiomediastinal silhouette. Bones and soft tissues: Unremarkable. IMPRESSION IMPRESSION: Right-sided pleural fluid and atelectasis. Minimal linear atelectasis at the left base Assistant To The President: PSCB Transcribe Date/Time: Oct 03 2024 3:34P Dictated by : DAISY JENKINS MD This examination was interpreted and the report reviewed and electronically signed by: DAISY JENKINS MD on Oct 03 2024 3:35PM EST [facility] Radiology Study observation (narrative) [facility] XR Chest PA and LateralOrder ed By: [facility] Provider on 10-03-2024 [facility] CNOVon 10-02-2024 CNOV Office Visit (FAMWS ) GRICEL PATEL ([id number]) 1985 F Date Time Provider Department 10/02/24 9:00 AM MELVI SWANSON During your visit today, we recorded the following information about you: Temperature Pulse Respiration Blood pressure 98.5 degrees 76/minute 16/minute 112/76 Weight 96.1 kg Melvi Swanson MD 10/02/2024 1:33 PM Addendum Family Medicine OUTPATIENT VISIT October 01, 2024 Establish Care CC: Hospital follow up HPI: 39 year old female patient, previously well except hx tobacco abuse, presenting for hospital discharge follow up after admission for pleural effusion. Recent admission to [facility] from 09/07 to 09/16 after presenting with pain under right breast radiating into back. Found to have loculated right effusion-CT CAP showed modest rind of nonspecific right pleural fluid, internal complexity noted, seems loculated. Associated atelectasis of right middle and lower lobe. Pleural fluid studies consistent with exudative/empyema. Cytology negative- and pneumonia and was treated for sepsis. Cultures including blood and pleural studies all negative. Treated with oral steroids, CTX and flagyl. Chest tube placed 09/08, replaced on 09/10 after dislodgement, and s/p lytic therapy on 09/11 and 09/[address] chest showing improvement in loculated fluid collection on 09/14. Drain removed on 09/16. Small remaining pleural effusion on CXR on 09/16. Origin of infection theorized to be possibly 2/2 to recent dental infection-XR mandible showing multiple caries and root canal with apical lucency, with patient advised to f/u with dentistry after discharge. Discharged on augmentin (21 days), flexuril, guaifensin, percocet (15 tabs), nicotine (planning on smoking cessation). Planning for pulmonary (Dr Carmen), infectious disease, and dentistry follow up-schduled. CT October 23. Today's concerns: Since d/c, still having some general fatigue but not specific Shortness of Breath. Her fatigue has been slowly improving over time. Is currently on FMLA. Lives alone usually but been with parents since discharge. Parents helping her with some mobility, showering. Toileting sometimes with help. No falls since discharge. She denies any neck pain or swelling. Did have neck pain during her hospitalization that was mild and only following lytic therapy, and this has now resolved. History of prior infections: none except was ill around last February with flu like symptoms (cough), father also was ill. HIV negative during last admission. Family history of recurrent or serious infections: none Family history of known primary immunodeficiencies: none Still taking flexuril, augmentin, done with percocet. Still smoking pack a day. Since age 15, pack a day. Smoking THC occasionally. Review of Systems PAIN ASSESSMENT: Negative for pain, history of chronic pain, or current treatment for a chronic pain condition. GENERAL: No weight loss, or fevers HEENT: Negative for significant headaches RESPIRATORY: Negative for cough, wheezing, shortness of breath CARDIOVASCULAR: Negative for chest pain, palpitations, PND or orthopnea GI: No nausea, vomiting, or diarrhea or abdominal pain. No [place] bleeding or melana : No history of dysuria, frequency, urgency, or change in urine appearance NEURO: No history of headaches, numbness, weakness, or changes to vision or hearing Health maintenance: Depression Screening Never done Anxiety Screening Never done Hepatitis C Screening Never done HIV Screening Never done DTaP,Tdap,Td Vaccine(1 - Tdap) Never done Hepatitis B Vaccine(1 of 3 - 19+ 3-dose series) Never done Pneumococcal Vaccine(1 of 2 - PCV) Never done Cervical Cancer Screening due on 07/11/2017 Covid-19 Vaccine() Never done Mammogram Screening due on 2024 Allergies: ALLERGIES Allergen Reactions Vicodin [Hydrocodon* GI Upset Patient c/o nausea and dizziness Medications: amoxicillin-clavulanat e potassium (AUGMENTIN) 875-125 mg per tablet Take 1 tablet by mouth two times a day. guaiFENesin (MUCINEX) 600 mg 12 hr tablet Take 600 mg by mouth every 12 hours. naproxen (NAPROSYN) 500 mg tablet Take 1 tablet by mouth two times a day as needed (FOR PAIN - TAKE WITH FOOD.). cyclobenzaprine (FLEXERIL) 10 mg tablet Take 1 tablet by mouth three times a day as needed. nicotine (NICODERM) 14 mg/24 hr Apply 1 patch as directed every 24 hours. Past Medical History: PAST MEDICAL HISTORY Diagnosis Date Infectious mononucleosis Mononucleosis Tobacco abuse since age 15, pack a day Urinary tract infection, site not specified Social History: Social History Tobacco Use Smoking status: Every Day Current packs/day: 1.00 Average packs/day: 1 pack/day for 24.0 years (24.0 ttl pk-yrs) Types: Cigarettes Smokeless tobacco: Current Tobacco comments: Willing (more content not included)... Normal [facility] [place] 10-02-2024 [facility] Telephone (KRISWS) GRICEL PATEL ([id number]) 1985 F Date Time Provider Department 10/02/24 MELVI SWANSON During your visit today, we recorded the following information about you: Allergies As of Date: 10/02/2024 Noted Allergy Reaction VICODIN (HYDROCODONE-ACETAMINO PHE*02/01/2005 8 - GI Upset Comments: Patient c/o nausea and dizziness Date Reviewed: 10/02/2024 Reviewed by: Cher Carpio MA - Fully Assessed Prescriptions as of 10/02/2024 - amoxicillin-clavulanat e potassium (AUGMENTIN) 875-125 mg per tablet Take 1 tablet by mouth two times a day. - guaiFENesin (MUCINEX) 600 mg 12 hr tablet Take 600 mg by mouth every 12 hours. - nicotine (NICODERM) 14 mg/24 hr Apply 1 patch as directed every 24 hours. - naproxen (NAPROSYN) 500 mg tablet Take 1 tablet by mouth two times a day as needed (FOR PAIN - TAKE WITH FOOD.). - cyclobenzaprine (FLEXERIL) 10 mg tablet Take 1 tablet by mouth three times a day as needed. Problem List As Of Date 10/02/2024 Noted Resolved Genital herpes [A60.00] 07/10/2012 Encounter Status:Closed by [facility] GRICEL PATEL ([id number]) 1985 F Date Time Provider Department 10/02/24 [facility] your visit today, we recorded the following information about you: Allergies As of Date: 10/02/2024 Noted Allergy Reaction VICODIN (HYDROCODONE-ACETAMINO PHE*02/01/2005 8 - GI Upset Comments: Patient c/o nausea and dizziness Date Reviewed: 10/02/2024 Reviewed by: Cher Carpio MA - Fully Assessed Prescriptions as of 10/02/2024 - amoxicillin-clavulanat e potassium (AUGMENTIN) 875-125 mg per tablet Take 1 tablet by mouth two times a day. - guaiFENesin (MUCINEX) 600 mg 12 hr tablet Take 600 mg by mouth every 12 hours. - nicotine (NICODERM) 14 mg/24 hr Apply 1 patch as directed every 24 hours. - naproxen (NAPROSYN) 500 mg tablet Take 1 tablet by mouth two times a day as needed (FOR PAIN - TAKE WITH FOOD.). - cyclobenzaprine (FLEXERIL) 10 mg tablet Take 1 tablet by mouth three times a day as needed. Problem List As Of Date 10/02/2024 Noted Resolved Genital herpes [A60.00] 07/10/2012 Encounter Status:Closed by [facility] GRICEL PATEL ([id number]) 1985 F Date Time Provider Department 10/02/24 MELVI SWANSON [facility] During your visit today, we recorded the following information about you: Melvi Swanson MD 10/02/2024 11:54 AM Signed Lab add on Melvi Swanson MD 10/02/2024 1:53 PM Signed Addended by: MELVI SWANSON on: 10/02/2024 01:53 PM Modules accepted: Orders Allergies As of Date: 10/02/2024 Noted Allergy Reaction VICODIN (HYDROCODONE-ACETAMINO PHE*02/01/2005 8 - GI Upset Comments: Patient c/o nausea and dizziness Date Reviewed: 10/02/2024 Reviewed by: Cher Carpio MA - Fully Assessed Primary Visit Diagnosis:Pleural effusion [J90] Prescriptions as of 10/02/2024 - amoxicillin-clavulanat e potassium (AUGMENTIN) 875-125 mg per tablet Take 1 tablet by mouth two times a day. - guaiFENesin (MUCINEX) 600 mg 12 hr tablet Take 600 mg by mouth every 12 hours. - nicotine (NICODERM) 14 mg/24 hr Apply 1 patch as directed every 24 hours. - naproxen (NAPROSYN) 500 mg tablet Take 1 tablet by mouth two times a day as needed (FOR PAIN - TAKE WITH FOOD.). - cyclobenzaprine (FLEXERIL) 10 mg tablet Take 1 tablet by mouth three times a day as needed. Problem List As Of Date 10/02/2024 Noted Resolved Genital herpes [A60.00] 07/10/2012 Encounter Status:Closed by MELVI SWANSON on 10/02/24 Normal [facility] BASIC METABOLIC PANELon 08-26 Anion gap [Moles/Vol] 11 mmol/L Normal 10-20 [facility] Comment on above: Order Comment: [facility] has implemented the eGFR calculation approach that does not have a coefficient for race that conforms to the NKF-ASN Task Force Recommendations. Performed By: #### 4 [id number] #### LAB [address] [place] [address] Judah Dubose M.D. [id number] Calcium [Mass/Vol] 8.5 mg/dL Normal 8.4-10.2 [facility] Comment on above: Order Comment: [facility] has implemented the eGFR calculation approach that does not have a coefficient for race that conforms to the NKF-ASN Task Force Recommendations. Performed By: #### 4 [id number] #### LAB [address] [place], [place] [address] Judah Dubose M.D. [id number] Chloride [Moles/Vol] 104 mmol/L Normal 98-108 [facility] Comment on above: Order Comment: [facility] has implemented the eGFR calculation approach that does not have a coefficient for race that conforms to the NKF-ASN Task Force Recommendations. Performed By: #### 4 [id number] #### LAB [address] [address] Judah Dubose M.D. [id number] Creatinine [Mass/Vol] 0.72 mg/dL Normal 0.40-1.10 [facility] Comment on above: Order Comment: [facility] has implemented the eGFR calculation approach that does not have a coefficient for race that conforms to the NKF-ASN Task Force Recommendations. Performed By: #### 4 [id number] #### [address] [place], [place] [address] Judah Dubose M.D. [id number] EGFR 109 mL/min/1.73 m2 Normal >=60 [facility] Comment on above: Order Comment: [facility] has implemented the eGFR calculation approach that does not have a coefficient for race that conforms to the NKF-ASN Task Force Recommendations. Result Comment: Rhea mated GFR was calculated using the 2020 CKD-EPI creatinine equation. Performed By: #### 4 [id number] #### LAB [address] [address] Judah Dubose M.D. [id number] Glucose [Mass/Vol] 139 mg/dL High 65-99 [facility] Comment on above: Order Comment: [facility] has implemented the eGFR calculation approach that does not have a coefficient for race that conforms to the NKF-ASN Task Force Recommendations. Performed By: #### 4 7222 #### LAB [address] [place], [place] [address] Judah Dubose M.D. [id number] HCO3 (Bld) [Moles/Vol] 28 mmol/L Normal 21-32 [facility] Comment on above: Order Comment: [facility] has implemented the eGFR calculation approach that does not have a coefficient for race that conforms to the NKF-ASN Task Force Recommendations. Performed By: #### 4 7222 #### LAB [address] [place], [place] [address] Judah Dubose M.D. [id number] Potassium [Moles/Vol] 3.6 mmol/L Normal 3.5-5.1 [facility] Comment on above: Order Comment: [facility] has implemented the eGFR calculation approach that does not have a coefficient for race that conforms to the NKF-ASN Task Force Recommendations. Performed By: #### 4 [id number] #### LAB [address] [address] Judah Dubose M.D. [id number] Sodium [Moles/Vol] 139 mmol/L Normal 135-145 [facility] Comment on above: Order Comment: [facility] has implemented the eGFR calculation approach that does not have a coefficient for race that conforms to the NKF-ASN Task Force Recommendations. Performed By: #### 4 7222 #### LAB [address] [place], [place] [address] Judah Dubose M.D. [id number] Urea nitrogen [Mass/Vol] 9 mg/dL Normal 8-25 [facility] Comment on above: Order Comment: [facility] has implemented the eGFR calculation approach that does not have a coefficient for race that conforms to the NKF-ASN Task Force Recommendations. Performed By: #### 4 7222 #### LAB [address] [place], [place] [address] Judah Dubose M.D. [id number] Urea nitrogen/Creatinine [Mass ratio] 12.5 mg/mg Normal 10.0-20.0 [facility] Comment on above: Order Comment: [facility] has implemented the eGFR calculation approach that does not have a coefficient for race that conforms to the NKF-ASN Task Force Recommendations. Performed By: #### 4 [id number] #### LAB [address] [place], [place] [address] Judah Dubose M.D. [id number] Basic metabolic 2000 panelon 09-16-2024 Anion gap [Moles/Vol] 11 mmol/L 10 - 20 mmol/L [facility] Calcium [Mass/Vol] 8.5 mg/dL 8.4 - 10. 2 mg/dL [facility] Chloride [Moles/Vol] 104 mmol/L 98 - 10 8 mmol/L [facility] Creatinine [Mass/Vol] 0.72 mg/dL 0.40 - 1.10 mg/dL [facility] GFR/1.73 sq M.predicted CKD-EPI (S/P/Bld) [Vol rate/Area] 109 - PINF [facility] Comment on above: Estimated GFR was ca lculated using the 2020 CKD-EPI creatinine equation. Glucose [Mass/Vol] 139 mg/dL High 65 - 99 mg/dL [facility] HCO3 [Moles/Vol] 28 mmol/L 21 - 32 mmol/L [facility] Interpretation and review of laboratory results Abnormal [facility] Potassium [Moles/Vol] 3.6 mmol/L 3.5 - 5.1 mmol/L [facility] Sodium [Moles/Vol] 139 mmol/L 135 - 145 mmol/L [facility] Urea nitrogen [Mass/Vol] 9 mg/dL 8 - 25 mg/dL [facility] Urea nitrogen/Creatinine [Mass ratio] 12.5 mg/mg 10.0 - 20.0 [facility] has implemented the eGFR calculation approach that does not have a coefficient for race that conforms to the NKF-ASN Task Force Recommendations. [facility] CBC Auto Differentialon 08-26 Basophils (Bld) [#/Vol] 0.07 10*3/uL [facility] Basophils/100 WBC (Bld) 0.8 % [facility] Eosinophils (Bld) [#/Vol] 0.56 10*3/uL High [facility] Eosinophils/100 WBC (Bld) 6.1 % [facility] Erythrocyte distribution width (RBC) [Entitic vol] 12.9 % 11.6 - 14.8 % [facility] Hematocrit (Bld) [Volume fraction] 37 % 36.0 - 46.0 % [facility] Hemoglobin (Bld) [Mass/Vol] 11.9 g/dL Low 12.0 - 16.0 g/dL [facility] Immature granulocytes (Bld) [#/Vol] 0.08 10*3/uL [facility] Immature granulocytes/100 WBC (Bld) 0.9 % [facility] Comment on above: The IG parameter is the percentage of metamyelocytes, myelocytes and promyelocytes. An immature granulocyte count (IG) of 1% or more suggests the possibility of infection, an IG count of 3% is very likely related to an infection. Interpretation and review of laboratory results Abnormal [facility] Lymphocytes (Bld) [#/Vol] 2.3 10*3/uL [facility] Lymphocytes/100 WBC (Bld) 24.9 % [facility] MCH (RBC) [Entitic mass] 29 pg 26.0 - 34.0 pg [facility] MCHC (RBC) [Mass/Vol] 32.2 g/dL 31.0 - 37.0 g/dL [facility] MCV (RBC) [Entitic vol] 90.2 fL 80.0 - 100.0 fL [facility] Monocytes (Bld) [#/Vol] 0.53 10*3/uL [facility] Monocytes/100 WBC (Bld) 5.7 % [facility] Neutrophils (Bld) [#/Vol] 5.71 10*3/uL [facility] Neutrophils/100 WBC (Bld) 61.6 % [facility] Nucleated RBC (Bld) [#/Vol] 0 10*3/uL [facility] Nucleated RBC/100 WBC (Bld) [Ratio] 0 % [facility] Platelet mean volume (Bld) [Entitic vol] 8.9 fL Low 9.4 - 12.4 fL [facility] Platelets (Bld) [#/Vol] 454 10*3/uL High [facility] RBC (Bld) [#/Vol] 4.1 10*6/uL [facility] WBC (Bld) [#/Vol] 9.25 10*3/uL [facility] eah [facility] CBC WITH AUTO DIFFERENTIALon 09-16-2024 AUTO NRBC 0.0 % Normal [facility] Comment on above: Performed By: #### [id number] #### [facility] [address] [place] [address] Eliazar Franks M.D. [id number] AUTO NRBC ABS COUNT 0.00 K/mcL Normal 0.00-0.00 [facility] Comment on above: Performed By: #### 4 [id number] #### [facility] [address] [place], [place] [id number] Eliazar Franks M.D. [id number] BASOPHILS ABSOLUTE COUNT 0.07 K/mcL Normal 0.00-0.30 [facility] Comment on above: Performed By: #### 4 [id number] #### [facility] [address] [place], [place] [id number] Eliazar Franks M.D. [id number] Basophils/100 WBC (Bld) 0.8 % Normal [facility] Comment on above: Performed By: #### 4 [id number] #### [facility] [address] [place] [address] Eliazar Franks M.D. [id number] Eosinophils (Bld) [#/Vol] 0.56 10*3/uL High 0.00-0.50 [facility] Comment on above: Performed By: #### 4 [id number] #### [facility] [address] [place] [address] Eliazar Franks M.D. [id number] Eosinophils/100 WBC (Bld) 6.1 % Normal [facility] Comment on above: Performed By: #### 4 [id number] #### [facility] [address] [place] [address] Eliazar Franks M.D. [id number] Erythrocyte distribution width (RBC) [Ratio] 12.9 % Normal 11.6-14.8 [facility] Comment on above: Performed By: #### 4 [id number] #### [facility] [address] [place] [address] Eliazar Franks M.D. [id number] Hematocrit (Bld) [Volume fraction] 37.0 % Normal 36.0-46.0 [facility] Comment on above: Performed By: #### 4 [id number] #### [facility] [address] [place] [address] Eliazar Franks M.D. [id number] Hemoglobin (Bld) [Mass/Vol] 11.9 g/dL Low 12.0-16.0 [facility] Comment on above: Performed By: #### 4 [id number] #### [facility] [address] [place] [address] Eliazar Franks M.D. [id number] IG ABSOLUTE 0.08 K/mcL Normal 0.00-0.30 [facility] Comment on above: Performed By: #### 4 [id number] #### [facility] [address] [place] [address] Eliazar Franks M.D. [id number] IG PERCENT 0.90 % Normal [facility] Comment on above: Result Comment: The IG parameter is the percentage of metamyelocytes, myelocytes and promyelocytes. An immature granulocyte count (IG) of 1% or more suggests the possibility of infection, an IG count of 3% is very likely related to an infection. Performed By: #### 4 [id number] #### [facility] [address] [place] [address] Eliazar Franks M.D. [id number] Lymphocytes (Bld) [#/Vol] 2.30 10*3/uL Normal 0.90-4.00 [facility] Comment on above: Performed By: #### 4 [id number] #### [facility] [address] [place] [address] Eliazar Franks M.D. [id number] Lymphocytes/100 WBC (Bld) 24.9 % Normal [facility] Comment on above: Performed By: #### 4 [id number] #### [facility] [address] [place] [address] Eliazar Franks M.D. [id number] MCH (RBC) [Entitic mass] 29.0 pg Normal 26.0-34.0 [facility] Comment on above: Performed By: #### 4 [id number] #### [facility] [address] [place], [place] [address] Eliazar Franks M.D. [id number] MCV (RBC) [Entitic vol] 90.2 fL Normal 80.0-100.0 [facility] Comment on above: Performed By: #### 4 [id number] #### [facility] [address] [place], [place] [address] Eliazar Franks M.D. [id number] MEAN CORPUSCULAR HEMOGLOBIN CONC 32.2 g/dL Normal 31.0-37.0 [facility] Comment on above: Performed By: #### 4 [id number] #### [facility] [address] [place] [address] Eliazar Franks M.D. [id number] Monocytes (Bld) [#/Vol] 0.53 10*3/uL Normal 0.30-0.90 [facility] Comment on above: Performed By: #### 4 [id number] #### [facility] [address] [place], [place] [address] Eliazar Franks M.D. [id number] Monocytes/100 WBC (Bld) 5.7 % Normal [facility] Comment on above: Performed By: #### 4 [id number] #### [facility] [address] [place] [address] Eliazar Franks M.D. [id number] NEUTROPHILS ABSOLUTE COUNT 5.71 K/mcL Normal 1.70-7.00 [facility] Comment on above: Performed By: #### 4 [id number] #### [facility] [address] [place] [address] Eliazar Franks M.D. [id number] Neutrophils/100 WBC (Bld) 61.6 % Normal [facility] Comment on above: Performed By: #### 4 [id number] #### [facility] [address] [place], [place] [address] Eliazar Franks M.D. [id number] Platelet mean volume (Bld) [Entitic vol] 8.9 fL Low 9.4-12.4 [facility] Comment on above: Performed By: #### 4 [id number] #### [facility] [address] [place], [place] [address] Eliazar Franks M.D. [id number] Platelets (Bld) [#/Vol] 454 10*3/uL High 150-400 [facility] Comment on above: Performed By: #### 4 [id number] #### [facility] [address] [place], [place] [address] Eliazar Franks M.D. [id number] RBC (Bld) [#/Vol] 4.10 10*6/uL Normal 4.00-5.20 [facility] Comment on above: Performed By: #### 4 [id number] #### [facility] [address] [place] [address] Eliazar Franks M.D. [id number] WBC (Bld) [#/Vol] 9.25 10*3/uL Normal 4.50-11.00 [facility] Comment on above: Performed By: #### 4 [id number] #### [facility] [address] [place] [address] Eliazar Franks M.D. [id number] XR CHEST PA/APon 09-16-2024 XR CHEST PA/AP EXAMINATION: XR CHEST PA/AP HISTORY: ORDERING SYSTEM PROVIDED HISTORY: chest tube removal, TECHNOLOGIST PROVIDED HISTORY: Illness/Other Reason for exam: chest tube removal Cancer History: u Surgery, RadiationHistory: u Encounter Type: Initial Additional signs and symptoms: chest tube removal ORDERING SYSTEM PROVIDED DIAGNOSIS CODES: J18.9 Parapneumonic effusion J91.8 Parapneumonic effusion COMPARISON: Chest x-ray 09/16/2024, 09/15/2024. FINDINGS: AP portable upright view. MEDIASTINUM: Cardiac silhouette is within normal limits. LUNGS AND PLEURA: Left lung and pleural space are clear. Right lower lung discoid atelectasis and minimal consolidation with small right pleural effusion. Right chest tube has been removed. OSSEOUS STRUCTURES AND SOFT TISSUES: No acute osseous abnormality. IMPRESSION: 1. Right chest tube has been removed. No pneumothorax. 2. Right basilar discoid atelectasis and small right pleural effusion. [employer]elle Workstation ID: [id number] Dictated by: CORBIN ARAUJO on MonSep 16, 2024 2:27:17 PM EDT Transcribed by: JAIR MCMULLEN on MonSep 16, 2024 2:52:32 PM EDT Finalized by: CORBIN ARAUJO on MonSep 16, 2024 8:31:17 PM EDT Normal [facility] Comment on above: Order Comment: Injur y/Trauma or Illness?:Illness/Other How long have you had these symptoms (acute/chronic)?:Acute Reason for exam?:chest tube removal History of cancer?:u Surgeries, chemotherapy, or radiation?:u Type of Exam?:Initial chest tube removal Additional signs and symptoms?:chest tube removal XR CHEST PA/AP EXAMINATION: XR CHEST PA/AP HISTORY: ORDERING SYSTEM PROVIDED HISTORY: CT to [facility], TECHNOLOGIST PROVIDED HISTORY: Illness/Other Reason for exam: CT to [facility] Cancer History: u Surgery, RadiationHistory: u Encounter Type: Initial Additional signs and symptoms: CT to [facility] ORDERING SYSTEM PROVIDED DIAGNOSIS CODES: J18.9 Parapneumonic effusion J91.8 Parapneumonic effusion COMPARISON: Chest x-ray 09/15/2024, chest CT 09/14/2024. FINDINGS: AP portable upright view. MEDIASTINUM: Cardiac silhouette is within normal limits. LUNGS AND PLEURA: Small right pleural effusion with increased conspicuity of right basilar discoid atelectasis. Right chest tube is in stable position. No pneumothorax. Pulmonary vascular markings are normal. The left lung and pleural space are clear. OSSEOUS STRUCTURES AND SOFT TISSUES: No acute osseous abnormality. IMPRESSION: 1. Small right pleural effusion with increased conspicuity of right basilar discoid atelectasis. Right chest tube is in stable position. No pneumothorax. [employer] Workstation ID: [id number] Dictated by: CORBIN ARAUJO on MonSep 16, 2024 2:28:20 PM EDT Transcribed by: JAIR MCMULLEN on MonSep 16, 2024 2:56:37 PM EDT Finalized by: CORBIN ARAUJO on MonSep 16, 2024 8:31:05 PM EDT Normal [facility] Comment on above: Order Comment: Injur y/Trauma or Illness?:Illness/OtherHow long have you had these symptoms (acute/chronic)?:AcuteReason for exam?:CT to watersealHistory of cancer?:uSurgeries, chemotherapy, or radiation?:uType of Exam?:InitialAdditional signs and symptoms?:CT to [facility] XR Chest PA and Abdomen APon 09-16-2024 1. Right chest tube has been removed. No pneumothorax. 2. Right basilar discoid atelectasis and small right pleural effusion. [employer] Workstation ID: [id number] GE RIS EXAMINATION: XR CHEST PA/AP HISTORY: ORDERING SYSTEM PROVIDED HISTORY: chest tube removal, TECHNOLOGIST PROVIDED HISTORY: Illness/Other Reason for exam: chest tube removal Cancer History: u Surgery, RadiationHistory: u Encounter Type: Initial Additional signs and symptoms: chest tube removal ORDERING SYSTEM PROVIDED DIAGNOSIS CODES: J18.9 Parapneumonic effusion J91.8 Parapneumonic effusion COMPARISON: Chest x-ray 09/16/2024, 09/15/2024. FINDINGS: AP portable upright view. MEDIASTINUM: Cardiac silhouette is within normal limits. LUNGS AND PLEURA: Left lung and pleural space are clear. Right lower lung discoid atelectasis and minimal consolidation with small right pleural effusion. Right chest tube has been removed. OSSEOUS STRUCTURES AND SOFT TISSUES: No acute osseous abnormality. Yunzhisheng Corbin Araujo MD - 09/16/2024 EXAMINATION: XR CHEST PA/AP HISTORY: ORDERING SYSTEM PROVIDED HISTORY: chest tube removal, TECHNOLOGIST PROVIDED HISTORY: Illness/Other Reason for exam: chest tube removal Cancer History: u Surgery, RadiationHistory: u Encounter Type: Initial Additional signs and symptoms: chest tube removal ORDERING SYSTEM PROVIDED DIAGNOSIS CODES: J18.9 Parapneumonic effusion J91.8 Parapneumonic effusion COMPARISON: Chest x-ray 09/16/2024, 09/15/2024. FINDINGS: AP portable upright view. MEDIASTINUM: Cardiac silhouette is within normal limits. LUNGS AND PLEURA: Left lung and pleural space are clear. Right lower lung discoid atelectasis and minimal consolidation with small right pleural effusion. Right chest tube has been removed. OSSEOUS STRUCTURES AND SOFT TISSUES: No acute osseous abnormality. IMPRESSION: 1. Right chest tube has been removed. No pneumothorax. 2. Right basilar discoid atelectasis and small right pleural effusion. [employer] Workstation ID: [id number] [facility] 1. Small right pleural effusion with increased conspicuity of right basilar discoid atelectasis. Right chest tube is in stable position. No pneumothorax. [employer] Workstation ID: [id number] Yunzhisheng EXAMINATION: XR CHEST PA/AP HISTORY: ORDERING SYSTEM PROVIDED HISTORY: CT to [facility], TECHNOLOGIST PROVIDED HISTORY: Illness/Other Reason for exam: CT to [facility] Cancer History: u Surgery, RadiationHistory: u Encounter Type: Initial Additional signs and symptoms: CT to [facility] ORDERING SYSTEM PROVIDED DIAGNOSIS CODES: J18.9 Parapneumonic effusion J91.8 Parapneumonic effusion COMPARISON: Chest x-ray 09/15/2024, chest CT 09/14/2024. FINDINGS: AP portable upright view. MEDIASTINUM: Cardiac silhouette is within normal limits. LUNGS AND PLEURA: Small right pleural effusion with increased conspicuity of right basilar discoid atelectasis. Right chest tube is in stable position. No pneumothorax. Pulmonary vascular markings are normal. The left lung and pleural space are clear. OSSEOUS STRUCTURES AND SOFT TISSUES: No acute osseous abnormality. [facility] Corbin Araujo MD - 09/16/2024 EXAMINATION: XR CHEST PA/AP HISTORY: ORDERING SYSTEM PROVIDED HISTORY: CT to [facility], TECHNOLOGIST PROVIDED HISTORY: Illness/Other [facility] Cancer History: u Surgery, RadiationHistory: u Encounter Type: Initial Additional signs and symptoms: CT to [facility] ORDERING SYSTEM PROVIDED DIAGNOSIS CODES: J18.9 Parapneumonic effusion J91.8 Parapneumonic effusion COMPARISON: Chest x-ray 09/15/2024, chest CT 09/14/2024. FINDINGS: AP portable upright view. MEDIASTINUM: Cardiac silhouette is within normal limits. LUNGS AND PLEURA: Small right pleural effusion with increased conspicuity of right basilar discoid atelectasis. Right chest tube is in stable position. No pneumothorax. Pulmonary vascular markings are normal. The left lung and pleural space are clear. OSSEOUS STRUCTURES AND SOFT TISSUES: No acute osseous abnormality. IMPRESSION: 1. Small right pleural effusion with increased conspicuity of right basilar discoid atelectasis. Right chest tube is in stable position. No pneumothorax. [employer]elle Workstation ID: [id number] [facility] Radiology Study observation (narrative) [facility] Radiology Study observation (narrative) [facility] XR Chest PA and Abdomen APOr dered By: Corbin Araujo on 09-16-2024 [facility] Work Phone: XR MANDIBLE LESS THAN 4 VIEW S (PANOREX)on 09-16-2024 XR MANDIBLE LESS THAN 4 VIEWS (PANOREX) EXAMINATION: XR MANDIBLE LESS THAN 4 VIEWS (PANOREX) HISTORY: ORDERING SYSTEM PROVIDED HISTORY: Dental abscess, TECHNOLOGIST PROVIDED HISTORY: Illness/Other Reason for exam: dental abscess Cancer History: u Surgery, RadiationHistory: u Encounter Type: Initial Additional signs and symptoms: dental abscess ORDERING SYSTEM PROVIDED DIAGNOSIS CODES: J18.9 Parapneumonic effusion J91.8 Parapneumonic effusion Dental abscess. COMPARISON: None. TECHNIQUE: Panoramic view of the mandible. FINDINGS: There is appearance of an unerupted posterior left maxillary molar. Prominent dental destini is seen involving the left 2nd maxillary molar with subtle apical lucency. Dental caries are seen. Root canal of the left 2nd mandibular premolar with subtle apical lucency. Prominent dental caries in the residual left mandibular molars with apical lucencies. Right posterior mandibular molar appears un erupted. Plate screw fixation hardware along the left mandibular ramus. IMPRESSION: 1. Dental caries involving the residual left mandibular molars associated with apical lucencies. 2. Root canal involving the left 2nd mandibular premolar with apical lucency. 3. Prior ORIF repair of the left mandibular ramus. MPH/Lookeryr Workstation ID: [id number] Dictated by: GERTRUDE VILLAREAL on MonSep 16, 2024 4:18:06 PM EDT Transcribed by: MELANIE GILLESPIE on MonSep 16, 2024 4:40:31 PM EDT Finalized by: GERTRUDE VILLAREAL on MonSep 16, 2024 5:50:51 PM EDT Normal [facility] Comment on above: Order Comment: Injur y/Trauma or Illness?:Illness/OtherHow long have you had these symptoms (acute/chronic)?:AcuteReason for exam?:dental abscessHistory of cancer?:uSurgeries, chemotherapy, or radiation?:uType of Exam?:InitialAdditional signs and symptoms?:dental abscess XR Mandible 4 Viewson 2024 1. Dental caries involving the residual left mandibular molars associated with apical lucencies. 2. Root canal involving the left 2nd mandibular premolar with apical lucency. 3. Prior ORIF repair of the left mandibular ramus. MPH/Lookeryr Workstation ID: [id number] RIS EXAMINATION: XR MANDIBLE LESS THAN 4 VIEWS (PANOREX) HISTORY: ORDERING SYSTEM PROVIDED HISTORY: Dental abscess, TECHNOLOGIST PROVIDED HISTORY: Illness/Other Reason for exam: dental abscess Cancer History: u Surgery, RadiationHistory: u Encounter Type: Initial Additional signs and symptoms: dental abscess ORDERING SYSTEM PROVIDED DIAGNOSIS CODES: J18.9 Parapneumonic effusion J91.8 Parapneumonic effusion Dental abscess. COMPARISON: None. TECHNIQUE: Panoramic view of the mandible. FINDINGS: There is appearance of an unerupted posterior left maxillary molar. Prominent dental destini is seen involving the left 2nd maxillary molar with subtle apical lucency. Dental caries are seen. Root canal of the left 2nd mandibular premolar with subtle apical lucency. Prominent dental caries in the residual left mandibular molars with apical lucencies. Right posterior mandibular molar appears un erupted. Plate screw fixation hardware along the left mandibular ramus. BRI Gertrude Meza Brennan, DO - 09/16/2024 EXAMINATION: XR MANDIBLE LESS THAN 4 VIEWS (PANOREX) HISTORY: ORDERING SYSTEM PROVIDED HISTORY: Dental abscess, TECHNOLOGIST PROVIDED HISTORY: Illness/Other Reason for exam: dental abscess Cancer History: u Surgery, RadiationHistory: u Encounter Type: Initial Additional signs and symptoms: dental abscess ORDERING SYSTEM PROVIDED DIAGNOSIS CODES: J18.9 Parapneumonic effusion J91.8 Parapneumonic effusion Dental abscess. COMPARISON: None. TECHNIQUE: Panoramic view of the mandible. FINDINGS: There is appearance of an unerupted posterior left maxillary molar. Prominent dental destini is seen involving the left 2nd maxillary molar with subtle apical lucency. Dental caries are seen. Root canal of the left 2nd mandibular premolar with subtle apical lucency. Prominent dental caries in the residual left mandibular molars with apical lucencies. Right posterior mandibular molar appears un erupted. Plate screw fixation hardware along the left mandibular ramus. IMPRESSION: 1. Dental caries involving the residual left mandibular molars associated with apical lucencies. 2. Root canal involving the left 2nd mandibular premolar with apical lucency. 3. Prior ORIF repair of the left mandibular ramus. MPH/mjr Workstation ID: [id number] [facility] Radiology Study observation (narrative) [facility] BASIC METABOLIC PANELon 08-26 Anion gap [Moles/Vol] 14 mmol/L Normal 10-20 [facility] Comment on above: Order Comment: [facility] has implemented the eGFR calculation approach that does not have a coefficient for race that conforms to the NKF-ASN Task Force Recommendations. Performed By: #### 4 [id number] #### [address] [place], [place] [address] Judah Dubose M.D. [id number] Calcium [Mass/Vol] 8.6 mg/dL Normal 8.4-10.2 [facility] Comment on above: Order Comment: [facility] has implemented the eGFR calculation approach that does not have a coefficient for race that conforms to the NKF-ASN Task Force Recommendations. Performed By: #### 4 [id number] #### LAB [address] [place] [id number] Judah Dubose M.D. [id number] Chloride [Moles/Vol] 102 mmol/L Normal 98-108 [facility] Comment on above: Order Comment: [facility] has implemented the eGFR calculation approach that does not have a coefficient for race that conforms to the NKF-ASN Task Force Recommendations. Performed By: #### 4 [id number] #### LAB [address] [place] [address] Judah Dubose M.D. [id number] Creatinine [Mass/Vol] 0.68 mg/dL Normal 0.40-1.10 [facility] Comment on above: Order Comment: [facility] has implemented the eGFR calculation approach that does not have a coefficient for race that conforms to the NKF-ASN Task Force Recommendations. Performed By: #### 4 [id number] #### LAB [address] [place] [address] Judah Dubose M.D. [id number] EGFR 113 mL/min/1.73 m2 Normal >=60 [facility] Comment on above: Order Comment: [facility] has implemented the eGFR calculation approach that does not have a coefficient for race that conforms to the NKF-ASN Task Force Recommendations. Result Comment: Rhea mated GFR was calculated using the 2020 CKD-EPI creatinine equation. Performed By: #### 4 [id number] #### LAB [address] [place] [address] Judah Dubose M.D. [id number] Glucose [Mass/Vol] 121 mg/dL High 65-99 [facility] Comment on above: Order Comment: [facility] has implemented the eGFR calculation approach that does not have a coefficient for race that conforms to the NKF-ASN Task Force Recommendations. Performed By: #### 4 [id number] #### LAB [address] [place] [address] Judah Dubose M.D. [id number] HCO3 (Bld) [Moles/Vol] 25 mmol/L Normal 21-32 [facility] Comment on above: Order Comment: [facility] has implemented the eGFR calculation approach that does not have a coefficient for race that conforms to the NKF-ASN Task Force Recommendations. Performed By: #### 4 [id number] #### LAB [address] [place] [address] Judah Dubose M.D. [id number] Potassium [Moles/Vol] 3.7 mmol/L Normal 3.5-5.1 [facility] Comment on above: Order Comment: [facility] has implemented the eGFR calculation approach that does not have a coefficient for race that conforms to the NKF-ASN Task Force Recommendations. Performed By: #### 4 [id number] #### [facility] LAB [address] [address] Judah Dubose M.D. [id number] Sodium [Moles/Vol] 137 mmol/L Normal 135-145 [facility] Comment on above: Order Comment: [facility] has implemented the eGFR calculation approach that does not have a coefficient for race that conforms to the NKF-ASN Task Force Recommendations. Performed By: #### 4 [id number] #### LAB [address] [place] [address] Judah Dubose M.D. [id number] Urea nitrogen [Mass/Vol] 10 mg/dL Normal 8-25 [facility] Comment on above: Order Comment: [facility] has implemented the eGFR calculation approach that does not have a coefficient for race that conforms to the NKF-ASN Task Force Recommendations. Performed By: #### 4 [id number] #### LAB [address] [place] [address] Judah Dubose M.D. [id number] Urea nitrogen/Creatinine [Mass ratio] 14.7 mg/mg Normal 10.0-20.0 [facility] Comment on above: Order Comment: [facility] has implemented the eGFR calculation approach that does not have a coefficient for race that conforms to the NKF-ASN Task Force Recommendations. Performed By: #### 4 [id number] #### [facility] LAB [address] [place], [place] [address] Judah Dubose M.D. [id number] Basic metabolic 2000 panelon 09-15-2024 Anion gap [Moles/Vol] 14 mmol/L 10 - 20 mmol/L [facility] Calcium [Mass/Vol] 8.6 mg/dL 8.4 - 10. 2 mg/dL [facility] Chloride [Moles/Vol] 102 mmol/L 98 - 10 8 mmol/L [facility] Creatinine [Mass/Vol] 0.68 mg/dL 0.40 - 1.10 mg/dL [facility] GFR/1.73 sq M.predicted CKD-EPI (S/P/Bld) [Vol rate/Area] 113 - PINF [facility] Comment on above: Estimated GFR was ca lculated using the 2020 CKD-EPI creatinine equation. Glucose [Mass/Vol] 121 mg/dL High 65 - 99 mg/dL [facility] HCO3 [Moles/Vol] 25 mmol/L 21 - 32 mmol/L [facility] Interpretation and review of laboratory results Abnormal [facility] Potassium [Moles/Vol] 3.7 mmol/L 3.5 - 5.1 mmol/L [facility] Sodium [Moles/Vol] 137 mmol/L 135 - 145 mmol/L [facility] Urea nitrogen [Mass/Vol] 10 mg/dL 8 - 25 mg/dL [facility] Urea nitrogen/Creatinine [Mass ratio] 14.7 mg/mg 10.0 - 20.0 [facility] has implemented the eGFR calculation approach that does not have a coefficient for race that conforms to the NKF-ASN Task Force Recommendations. [facility] CBC Auto Differentialon 08-26 Basophils (Bld) [#/Vol] 0.06 10*3/uL [facility] Basophils/100 WBC (Bld) 0.6 % [facility] Eosinophils (Bld) [#/Vol] 0.53 10*3/uL High [facility] Eosinophils/100 WBC (Bld) 5.3 % [facility] Erythrocyte distribution width (RBC) [Entitic vol] 12.8 % 11.6 - 14.8 % [facility] Hematocrit (Bld) [Volume fraction] 39.8 % 36.0 - 46.0 % [facility] Hemoglobin (Bld) [Mass/Vol] 12.9 g/dL 12.0 - 16.0 g/dL [facility] Immature granulocytes (Bld) [#/Vol] 0.1 10*3/uL [facility] Immature granulocytes/100 WBC (Bld) 1 % [facility] Comment on above: The IG parameter is the percentage of metamyelocytes, myelocytes and promyelocytes. An immature granulocyte count (IG) of 1% or more suggests the possibility of infection, an IG count of 3% is very likely related to an infection. Interpretation and review of laboratory results Abnormal [facility] Lymphocytes (Bld) [#/Vol] 2.3 10*3/uL [facility] Lymphocytes/100 WBC (Bld) 22.8 % [facility] MCH (RBC) [Entitic mass] 29.4 pg 26.0 - 34.0 pg [facility] MCHC (RBC) [Mass/Vol] 32.4 g/dL 31.0 - 37.0 g/dL [facility] MCV (RBC) [Entitic vol] 90.7 fL 80.0 - 100.0 fL [facility] Monocytes (Bld) [#/Vol] 0.57 10*3/uL [facility] Monocytes/100 WBC (Bld) 5.7 % [facility] Neutrophils (Bld) [#/Vol] 6.51 10*3/uL [facility] Neutrophils/100 WBC (Bld) 64.6 % [facility] Nucleated RBC (Bld) [#/Vol] 0 10*3/uL [facility] Nucleated RBC/100 WBC (Bld) [Ratio] 0 % [facility] Platelet mean volume (Bld) [Entitic vol] 8.9 fL Low 9.4 - 12.4 fL [facility] Platelets (Bld) [#/Vol] 484 10*3/uL High [facility] RBC (Bld) [#/Vol] 4.39 10*6/uL [facility] ealth WBC (Bld) [#/Vol] 10.07 10*3/uL [facility] CBC WITH AUTO DIFFERENTIALon 09-15-2024 AUTO NRBC 0.0 % Normal [facility] Comment on above: Performed By: #### 4 [id number] #### [facility] [address] [place] [address] Eliazar Franks M.D. [id number] AUTO NRBC ABS COUNT 0.00 K/mcL Normal 0.00-0.00 [facility] Comment on above: Performed By: #### 4 [id number] #### [facility] [address] [place], [place] [id number] Eliazar Franks M.D. [id number] BASOPHILS ABSOLUTE COUNT 0.06 K/mcL Normal 0.00-0.30 [facility] Comment on above: Performed By: #### 4 [id number] #### [facility] [address] [place] [address] Eliazar Franks M.D. [id number] Basophils/100 WBC (Bld) 0.6 % Normal [facility] Comment on above: Performed By: #### 4 [id number] #### [facility] [address] [place] [address] Eliazar Franks M.D. [id number] Eosinophils (Bld) [#/Vol] 0.53 10*3/uL High 0.00-0.50 [facility] Comment on above: Performed By: #### 4 [id number] #### [facility] [address] [place], [place] [id number] Eliazar Franks M.D. [id number] Eosinophils/100 WBC (Bld) 5.3 % Normal [facility] Comment on above: Performed By: #### 4 [id number] #### [facility] [address] [place], [place] [id number] Eliazar Franks M.D. [id number] Erythrocyte distribution width (RBC) [Ratio] 12.8 % Normal 11.6-14.8 [facility] Comment on above: Performed By: #### 4 [id number] #### [facility] [address] [place], [place] [id number] Eliazar Franks M.D. [id number] Hematocrit (Bld) [Volume fraction] 39.8 % Normal 36.0-46.0 [facility] Comment on above: Performed By: #### 4 [id number] #### [facility] [address] [place], [place] [id number] Eliazar Franks M.D. [id number] Hemoglobin (Bld) [Mass/Vol] 12.9 g/dL Normal 12.0-16.0 [facility] Comment on above: Performed By: #### 4 [id number] #### [facility] [address] [place] [address] Eliazar Franks M.D. [id number] IG ABSOLUTE 0.10 K/mcL Normal 0.00-0.30 [facility] Comment on above: Performed By: #### 4 [id number] #### [facility] [address] [place] [address] Eliazar Franks M.D. [id number] IG PERCENT 1.00 % Normal [facility] Comment on above: Result Comment: The IG parameter is the percentage of metamyelocytes, myelocytes and promyelocytes. An immature granulocyte count (IG) of 1% or more suggests the possibility of infection, an IG count of 3% is very likely related to an infection. Performed By: #### 4 [id number] #### [facility] [address] [place], [place] [id number] Eliazar Franks M.D. [id number] Lymphocytes (Bld) [#/Vol] 2.30 10*3/uL Normal 0.90-4.00 [facility] Comment on above: Performed By: #### 4 [id number] #### [facility] [address] [place], [place] [address] Eliazar Franks M.D. [id number] Lymphocytes/100 WBC (Bld) 22.8 % Normal [facility] Comment on above: Performed By: #### 4 [id number] #### [facility] [address] [place], [place] [address] Eliazar Franks M.D. [id number] MCH (RBC) [Entitic mass] 29.4 pg Normal 26.0-34.0 [facility] Comment on above: Performed By: #### 4 [id number] #### [facility] [address] [place], [place] [address] Eliazar Franks M.D. [id number] MCV (RBC) [Entitic vol] 90.7 fL Normal 80.0-100.0 [facility] Comment on above: Performed By: #### 4 [id number] #### [facility] [address] [place] [address] Eliazar Franks M.D. [id number] MEAN CORPUSCULAR HEMOGLOBIN CONC 32.4 g/dL Normal 31.0-37.0 [facility] Comment on above: Performed By: #### 4 [id number] #### [facility] [address] [place] [address] Eliazar Franks M.D. [id number] Monocytes (Bld) [#/Vol] 0.57 10*3/uL Normal 0.30-0.90 [facility] Comment on above: Performed By: #### 4 [id number] #### [facility] [address] [place] [address] Eliazar Franks M.D. [id number] Monocytes/100 WBC (Bld) 5.7 % Normal [facility] Comment on above: Performed By: #### 4 [id number] #### [facility] [address] [place] [address] Eliazar Franks M.D. [id number] NEUTROPHILS ABSOLUTE COUNT 6.51 K/mcL Normal 1.70-7.00 [facility] Comment on above: Performed By: #### 4 [id number] #### [facility] [address] [place], [place] [address] Eliazar Franks M.D. [id number] Neutrophils/100 WBC (Bld) 64.6 % Normal [facility] Comment on above: Performed By: #### 4 [id number] #### [facility] [address] [place] [address] Eliazar Franks M.D. [id number] Platelet mean volume (Bld) [Entitic vol] 8.9 fL Low 9.4-12.4 [facility] Comment on above: Performed By: #### 4 [id number] #### [facility] [address] [place] [address] Eliazar Franks M.D. [id number] Platelets (Bld) [#/Vol] 484 10*3/uL High 150-400 [facility] Comment on above: Performed By: #### 4 [id number] #### [facility] [address] [place], [place] [address] Eliazar Franks M.D. [id number] RBC (Bld) [#/Vol] 4.39 10*6/uL Normal 4.00-5.20 [facility] Comment on above: Performed By: #### 4 [id number] #### [facility] [address] [place] [address] Eliazar Franks M.D. [id number] WBC (Bld) [#/Vol] 10.07 10*3/uL Normal 4.50-11.00 [facility] Comment on above: Performed By: #### 4 [id number] #### [facility] [address] [place] [address] Eliazar Franks M.D. [id number] ESR Westergren method (Bld) [Velocity]on 09-15-2024 ESR (Bld) [Velocity] 78 mm/h High [facility] Interpretation and review of laboratory results Abnormal [facility] HIV Antibody (HIV1/HIV2)on 0 09-15-2024 HIV 1+2 Ab+HIV1 p24 Ag IA Ql Negative Negative [facility] Interpretation and review of laboratory results Normal [facility] This assay screens f or the presence of HIV-1, HIV-2 antibodies and for the presence of HIV-1 antigen. Test performed using Bg SHELLY immunoassay system [facility] SEDIMENTATION RATEon 025 SEDIMENTATION RATE, ERYTHROCYTE 78 mm/hr High 0-20 [facility] Comment on above: Performed By: #### 4 7222 #### LAB [address] [place], [place] [address] Judah Dubose M.D. [id number] SPUTUM AEROBIC CULTUREon SPUTUM AEROBIC CULTURE RESPIRATORY CULTU RE Normal Zaki after 48 hrs GRAM STAIN RESULT Moderate Epithelial Cells Moderate WBC Many Mixed Zaki Normal [facility] Comment on above: Performed By: #### 4 4046 #### [facility] [address] [place], [place] [address] Eliazar Franks M.D. [id number] XR CHEST PA/APon 09-15-2024 XR CHEST PA/AP EXAMINATION: PORTABLE AP UPRIGHT CHEST: 09/15/2024 AT 1208 HOURS. HISTORY: Dx: J18.9 (Parapneumonic effusion) Injury/Trauma or Illness?:Illness/Other How long have you had these symptoms (acute/chronic)?:Acute Empyema evaluation. COMPARISON FILMS: Portable AP upright chest: 09/15/2024 at 0716 hours. IMPRESSION: FINDINGS/ 1. Increased density at the right lung base, seems slightly better compared to previous study. The remaining lungs appear normal. 2. The trachea is midline. The aorta has normal contour. The heart size remains normal. The visualized osseous structures are normal. 3. The tubular device along the lower chest remains unchanged. [employer] Workstation ID: [id number] Dictated by: JAYDA RUBIO on MonSep 15, 2024 12:57:06 PM EDT Transcribed by: VICKI TALBERT on MonSep 15, 2024 2:05:27 PM EDT Finalized by: JAYDA RUBIO on MonSep 15, 2024 2:18:25 PM EDT [facility] Comment on above: Order Comment: Injur y/Trauma or Illness?:Illness/OtherHow long have you had these symptoms (acute/chronic)?:AcuteReason for exam?:Empyema evalutaionHistory of cancer?:uSurgeries, chemotherapy, or radiation?:uType of Exam?:Subsequent/Follow-upAdditional signs and symptoms?:. XR CHEST PA/AP EXAMINATION: XR CHEST PA/AP HISTORY: ORDERING SYSTEM PROVIDED HISTORY: Water seal follow up, TECHNOLOGIST PROVIDED HISTORY: Illness/Other Reason for exam: Water seal follow up Cancer History: u Surgery, RadiationHistory: u Encounter Type: Subsequent/Follow-up Additional signs and symptoms: . ORDERING SYSTEM PROVIDED DIAGNOSIS CODES: J18.9 Parapneumonic effusion J91.8 Parapneumonic effusion COMPARISON: Portable chest radiograph dated 2024. TECHNIQUE: AP upright portable chest radiograph performed. FINDINGS: Stable right chest tube. There is no pneumothorax. The trachea is midline. The cardiomediastinal silhouette is partially obscured on the right however visualized portions are stable and unremarkable. Stable bandlike atelectasis within the right lower chest and additional opacity at the right lung base secondary to a small right pleural effusion and atelectasis and/or infiltrate. There is no pulmonary vascular congestion. The osseous structures are unchanged in appearance. IMPRESSION: Stable right chest tube. There is no pneumothorax. Stable bandlike atelectasis within the right lower chest and additional opacity at the right lung base secondary to a small right pleural effusion and atelectasis and/or infiltrate. Workstation ID: [id number] Dictated by: TOMÁS MESSINA on MonSep 15, 2024 9:55:12 AM EDT Transcribed by: TOMÁS MESSINA on MonSep 15, 2024 9:55:12 AM EDT Finalized by: TOMÁS MESSINA on MonSep 15, 2024 9:55:12 AM EDT [facility] Comment on above: Order Comment: Injur y/Trauma or Illness?:Illness/OtherHow long have you had these symptoms (acute/chronic)?:AcuteReason for exam?:Water seal follow upHistory of cancer?:uSurgeries, chemotherapy, or radiation?:uType of Exam?:Subsequent/Follow-upAdditional signs and symptoms?:. XR Chest PA and Abdomen APon 09-15-2024 FINDINGS/ 1. Increased density at the right lung base, seems slightly better compared to previous study. The remaining lungs appear normal. 2. The trachea is midline. The aorta has normal contour. The heart size remains normal. The visualized osseous structures are normal. 3. The tubular device along the lower chest remains unchanged. KKV/rf Workstation ID: [id number] Yunzhisheng EXAMINATION: PORTABLE AP UPRIGHT CHEST: 09/15/2024 AT 1208 HOURS. HISTORY: Dx: J18.9 (Parapneumonic effusion) Injury/Trauma or Illness?:Illness/Other How long have you had these symptoms (acute/chronic)?:Acute Empyema evaluation. COMPARISON FILMS: Portable AP upright chest: 09/15/2024 at 0716 hours. GE RIS Jayda Rubio MD - 09/15/2024 EXAMINATION: PORTABLE AP UPRIGHT CHEST: 09/15/2024 AT 1208 HOURS. HISTORY: Dx: J18.9 (Parapneumonic effusion) Injury/Trauma or Illness?:Illness/Other How long have you had these symptoms (acute/chronic)?:Acute Empyema evaluation. COMPARISON FILMS: Portable AP upright chest: 09/15/2024 at 0716 hours. IMPRESSION: FINDINGS/ 1. Increased density at the right lung base, seems slightly better compared to previous study. The remaining lungs appear normal. 2. The trachea is midline. The aorta has normal contour. The heart size remains normal. The visualized osseous structures are normal. 3. The tubular device along the lower chest remains unchanged. [employer] Workstation ID: [id number] [facility] Radiology Study observation (narrative) [facility] Stable right chest tube. There is no pneumothorax. Stable bandlike atelectasis within the right lower chest and additional opacity at the right lung base secondary to a small right pleural effusion and atelectasis and/or infiltrate. Workstation ID: [id number] Yunzhisheng EXAMINATION: XR CHEST PA/AP HISTORY: ORDERING SYSTEM PROVIDED HISTORY: Water seal follow up, TECHNOLOGIST PROVIDED HISTORY: Illness/Other Reason for exam: Water seal follow up Cancer History: u Surgery, RadiationHistory: u Encounter Type: Subsequent/Follow-up Additional signs and symptoms: . ORDERING SYSTEM PROVIDED DIAGNOSIS CODES: J18.9 Parapneumonic effusion J91.8 Parapneumonic effusion COMPARISON: Portable chest radiograph dated 2024. TECHNIQUE: AP upright portable chest radiograph performed. FINDINGS: Stable right chest tube. There is no pneumothorax. The trachea is midline. The cardiomediastinal silhouette is partially obscured on the right however visualized portions are stable and unremarkable. Stable bandlike atelectasis within the right lower chest and additional opacity at the right lung base secondary to a small right pleural effusion and atelectasis and/or infiltrate. There is no pulmonary vascular congestion. The osseous structures are unchanged in appearance. Tomás Rowan MD - 09/15/2024 EXAMINATION: XR CHEST PA/AP HISTORY: ORDERING SYSTEM PROVIDED HISTORY: Water seal follow up, TECHNOLOGIST PROVIDED HISTORY: Illness/Other Reason for exam: Water seal follow up Cancer History: u Surgery, RadiationHistory: u Encounter Type: Subsequent/Follow-up Additional signs and symptoms: . ORDERING SYSTEM PROVIDED DIAGNOSIS CODES: J18.9 Parapneumonic effusion J91.8 Parapneumonic effusion COMPARISON: Portable chest radiograph dated 2024. TECHNIQUE: AP upright portable chest radiograph performed. FINDINGS: Stable right chest tube. There is no pneumothorax. The trachea is midline. The cardiomediastinal silhouette is partially obscured on the right however visualized portions are stable and unremarkable. Stable bandlike atelectasis within the right lower chest and additional opacity at the right lung base secondary to a small right pleural effusion and atelectasis and/or infiltrate. There is no pulmonary vascular congestion. The osseous structures are unchanged in appearance. IMPRESSION: Stable right chest tube. There is no pneumothorax. Stable bandlike atelectasis within the right lower chest and additional opacity at the right lung base secondary to a small right pleural effusion and atelectasis and/or infiltrate. Workstation ID: [id number] [facility] Radiology Study observation (narrative) [facility] XR Chest PA and Abdomen APOr dered By: Jayda Rubio on 09-15-2024 [facility] Work Phone: BASIC METABOLIC PANELon 08-26 Anion gap [Moles/Vol] 14 mmol/L Normal 10-20 [facility] Comment on above: Order Comment: [facility] has implemented the eGFR calculation approach that does not have a coefficient for race that conforms to the NKF-ASN Task Force Recommendations. Performed By: #### [id number] #### [facility] [address] [address] Judah Dubose M.D. [id number] Calcium [Mass/Vol] 8.3 mg/dL Low 8.4-10.2 [facility] Comment on above: Order Comment: [facility] has implemented the eGFR calculation approach that does not have a coefficient for race that conforms to the NKF-ASN Task Force Recommendations. Performed By: #### [id number] #### LAB [address] [place], [place] [address] Judah Dubose M.D. [id number] Chloride [Moles/Vol] 101 mmol/L Normal 98-108 [facility] Comment on above: Order Comment: [facility] has implemented the eGFR calculation approach that does not have a coefficient for race that conforms to the NKF-ASN Task Force Recommendations. Performed By: #### 4 [id number] #### LAB [address] [place], [place] [address] Judah Dubose M.D. [id number] Creatinine [Mass/Vol] 0.69 mg/dL Normal 0.40-1.10 [facility] Comment on above: Order Comment: [facility] has implemented the eGFR calculation approach that does not have a coefficient for race that conforms to the NKF-ASN Task Force Recommendations. Performed By: #### 4 [id number] #### LAB [address] [id number] Judah Dubose M.D. [id number] EGFR 113 mL/min/1.73 m2 Normal >=60 [facility] Comment on above: Order Comment: [facility] has implemented the eGFR calculation approach that does not have a coefficient for race that conforms to the NKF-ASN Task Force Recommendations. Result Comment: Rhea mated GFR was calculated using the 2020 CKD-EPI creatinine equation. Performed By: #### 4 [id number] #### LAB [address] [id number] Judah Dubose M.D. [id number] Glucose [Mass/Vol] 119 mg/dL High 65-99 [facility] Comment on above: Order Comment: [facility] has implemented the eGFR calculation approach that does not have a coefficient for race that conforms to the NKF-ASN Task Force Recommendations. Performed By: #### 4 [id number] #### LAB [address] [id number] Judah Dubose M.D. [id number] HCO3 (Bld) [Moles/Vol] 27 mmol/L Normal 21-32 [facility] Comment on above: Order Comment: [facility] has implemented the eGFR calculation approach that does not have a coefficient for race that conforms to the NKF-ASN Task Force Recommendations. Performed By: #### 4 [id number] #### LAB [address] [address] Judah Dubose M.D. [id number] Potassium [Moles/Vol] 3.5 mmol/L Normal 3.5-5.1 [facility] Comment on above: Order Comment: [facility] has implemented the eGFR calculation approach that does not have a coefficient for race that conforms to the NKF-ASN Task Force Recommendations. Performed By: #### 4 [id number] #### LAB [address] [address] Judah Dubose M.D. [id number] Sodium [Moles/Vol] 138 mmol/L Normal 135-145 [facility] Comment on above: Order Comment: [facility] has implemented the eGFR calculation approach that does not have a coefficient for race that conforms to the NKF-ASN Task Force Recommendations. Performed By: #### 4 [id number] #### LAB [address] [address] Judah Dubose M.D. [id number] Urea nitrogen [Mass/Vol] 11 mg/dL Normal 8-25 [facility] Comment on above: Order Comment: [facility] has implemented the eGFR calculation approach that does not have a coefficient for race that conforms to the NKF-ASN Task Force Recommendations. Performed By: #### 4 [id number] #### LAB [address] [address] Judah Dubose M.D. [id number] Urea nitrogen/Creatinine [Mass ratio] 15.9 mg/mg Normal 10.0-20.0 [facility] Comment on above: Order Comment: [facility] has implemented the eGFR calculation approach that does not have a coefficient for race that conforms to the NKF-ASN Task Force Recommendations. Performed By: #### 4 [id number] #### [facility] LAB [address] [place], [place] [address] Judah Dubose M.D. [id number] Basic metabolic 2000 panelon 09-14-2024 Anion gap [Moles/Vol] 14 mmol/L 10 - 20 mmol/L [facility] Calcium [Mass/Vol] 8.3 mg/dL Low 8.4 - 10. 2 mg/dL [facility] Chloride [Moles/Vol] 101 mmol/L 98 - 10 8 mmol/L [facility] Creatinine [Mass/Vol] 0.69 mg/dL 0.40 - 1.10 mg/dL [facility] GFR/1.73 sq M.predicted CKD-EPI (S/P/Bld) [Vol rate/Area] 113 - PINF [facility] Comment on above: Estimated GFR was ca lculated using the 2020 CKD-EPI creatinine equation. Glucose [Mass/Vol] 119 mg/dL High 65 - 99 mg/dL [facility] HCO3 [Moles/Vol] 27 mmol/L 21 - 32 mmol/L [facility] Interpretation and review of laboratory results Abnormal [facility] Potassium [Moles/Vol] 3.5 mmol/L 3.5 - 5.1 mmol/L [facility] Sodium [Moles/Vol] 138 mmol/L 135 - 145 mmol/L [facility] Urea nitrogen [Mass/Vol] 11 mg/dL 8 - 25 mg/dL [facility] Urea nitrogen/Creatinine [Mass ratio] 15.9 mg/mg 10.0 - 20.0 [facility] has implemented the eGFR calculation approach that does not have a coefficient for race that conforms to the NKF-ASN Task Force Recommendations. [facility] Body Fluid Aerobic CultureOr dered By: Neela Gibson on 09-14-2024 Bacteria identified Aer cx Nom (Body fld) No Growth after 5 days [facility] observation Gram stain Nom (Body fld) [facility] Microscopic observation Gram stain Nom (Body fld) Many RBC [facility] Microscopic observation Gram stain Nom (Body fld) No Organisms Seen [facility] CBC Auto Differentialon 08-26 Basophils (Bld) [#/Vol] 0.06 10*3/uL [facility] Basophils/100 WBC (Bld) 0.5 % [facility] Eosinophils (Bld) [#/Vol] 0.55 10*3/uL High [facility] Eosinophils/100 WBC (Bld) 4.6 % [facility] Erythrocyte distribution width (RBC) [Entitic vol] 12.7 % 11.6 - 14.8 % [facility] Hematocrit (Bld) [Volume fraction] 40.2 % 36.0 - 46.0 % [facility] Hemoglobin (Bld) [Mass/Vol] 13 g/dL 12.0 - 16.0 g/dL [facility] Immature granulocytes (Bld) [#/Vol] 0.18 10*3/uL [facility] Immature granulocytes/100 WBC (Bld) 1.5 % [facility] Comment on above: The IG parameter is the percentage of metamyelocytes, myelocytes and promyelocytes. An immature granulocyte count (IG) of 1% or more suggests the possibility of infection, an IG count of 3% is very likely related to an infection. Interpretation and review of laboratory results Abnormal [facility] Lymphocytes (Bld) [#/Vol] 2.9 10*3/uL [facility] Lymphocytes/100 WBC (Bld) 24 % [facility] MCH (RBC) [Entitic mass] 29.2 pg 26.0 - 34.0 pg [facility] MCHC (RBC) [Mass/Vol] 32.3 g/dL 31.0 - 37.0 g/dL [facility] MCV (RBC) [Entitic vol] 90.3 fL 80.0 - 100.0 fL [facility] Monocytes (Bld) [#/Vol] 0.93 10*3/uL High [facility] Monocytes/100 WBC (Bld) 7.7 % [facility] Neutrophils (Bld) [#/Vol] 7.46 10*3/uL High [facility] Neutrophils/100 WBC (Bld) 61.7 % [facility] Nucleated RBC (Bld) [#/Vol] 0 10*3/uL [facility] Nucleated RBC/100 WBC (Bld) [Ratio] 0 % [facility] Platelet mean volume (Bld) [Entitic vol] 8.8 fL Low 9.4 - 12.4 fL [facility] Platelets (Bld) [#/Vol] 481 10*3/uL [facility] RBC (Bld) [#/Vol] 4.45 10*6/uL [facility] WBC (Bld) [#/Vol] 12.08 10*3/uL [facility] CBC WITH AUTO DIFFERENTIALon 09-14-2024 AUTO NRBC 0.0 % [facility] Comment on above: Performed By: #### L [id number] #### LAB [address] [address] Judah Dubose M.D. [id number] AUTO NRBC ABS COUNT 0.00 K/mcL Normal 0.00-0.00 [facility] Comment on above: Performed By: #### L [id number] #### LAB [address] [address] Judah Dubose M.D. [id number] BASOPHILS ABSOLUTE COUNT 0.06 K/mcL Normal 0.00-0.30 [facility] Comment on above: Performed By: #### L [id number] #### LAB [address] [address] Judah Dubose M.D. [id number] Basophils/100 WBC (Bld) 0.5 % [facility] Comment on above: Performed By: #### L [id number] #### LAB [address] [place] [address] Judah Dubose M.D. [id number] Eosinophils (Bld) [#/Vol] 0.55 10*3/uL [facility] 0.00-0.50 [facility] Comment on above: Performed By: #### L [id number] #### LAB [address] [place] [address] Judah Dubose M.D. [id number] Eosinophils/100 WBC (Bld) 4.6 % [facility] Comment on above: Performed By: #### L [id number] #### LAB [address] [place] [address] Judah Dubose M.D. [id number] Erythrocyte distribution width (RBC) [Ratio] 12.7 % Normal 11.6-14.8 [facility] Comment on above: Performed By: #### L [id number] #### LAB [address] [address] Judah Dubose M.D. [id number] Hematocrit (Bld) [Volume fraction] 40.2 % Normal 36.0-46.0 [facility] Comment on above: Performed By: #### L [id number] #### LAB [address] [address] Judah Dubose M.D. [id number] Hemoglobin (Bld) [Mass/Vol] 13.0 g/dL Normal 12.0-16.0 [facility] Comment on above: Performed By: #### L [id number] #### LAB [address] [address] Judah Dubose M.D. [id number] IG ABSOLUTE 0.18 K/mcL Normal 0.00-0.30 [facility] Comment on above: Performed By: #### L [id number] #### LAB [address] [address] Judah Dubose M.D. [id number] IG PERCENT 1.50 % Normal [facility] Comment on above: Result Comment: The IG parameter is the percentage of metamyelocytes, myelocytes and promyelocytes. An immature granulocyte count (IG) of 1% or more suggests the possibility of infection, an IG count of 3% is very likely related to an infection. Performed By: #### L [id number] #### LAB [address] [address] Judah Dubose M.D. [id number] Lymphocytes (Bld) [#/Vol] 2.90 10*3/uL Normal 0.90-4.00 [facility] Comment on above: Performed By: #### L [id number] #### LAB [address] [place] [address] Judah Dubose M.D. [id number] Lymphocytes/100 WBC (Bld) 24.0 % Normal [facility] Comment on above: Performed By: #### L [id number] #### LAB [address] [address] Judah Dubose M.D. [id number] MCH (RBC) [Entitic mass] 29.2 pg Normal 26.0-34.0 [facility] Comment on above: Performed By: #### L [id number] #### LAB [address] [address] Judah Dubose M.D. [id number] MCV (RBC) [Entitic vol] 90.3 fL Normal 80.0-100.0 [facility] Comment on above: Performed By: #### L [id number] #### LAB [address] [address] Judah Dubose M.D. [id number] MEAN CORPUSCULAR HEMOGLOBIN CONC 32.3 g/dL Normal 31.0-37.0 [facility] Comment on above: Performed By: #### L [id number] #### LAB [address] [address] Judah Dubose M.D. [id number] Monocytes (Bld) [#/Vol] 0.93 10*3/uL High 0.30-0.90 [facility] Comment on above: Performed By: #### L [id number] #### LAB [address] [place] [address] Judah Dubose M.D. [id number] Monocytes/100 WBC (Bld) 7.7 % Normal [facility] Comment on above: Performed By: #### L [id number] #### LAB [address] [address] Judah Dubose M.D. [id number] NEUTROPHILS ABSOLUTE COUNT 7.46 K/mcL High 1.70-7.00 [facility] Comment on above: Performed By: #### L [id number] #### [facility] [address] [place] [address] Judah Dubose M.D. [id number] Neutrophils/100 WBC (Bld) 61.7 % Normal [facility] Comment on above: Performed By: #### L [id number] #### [facility] [address] [address] Judah Dubose M.D. [id number] Platelet mean volume (Bld) [Entitic vol] 8.8 fL Low 9.4-12.4 [facility] Comment on above: Performed By: #### L [id number] #### [facility] [address] [address] Judah Dubose M.D. [id number] Platelets (Bld) [#/Vol] 481 10*3/uL High 150-400 [facility] Comment on above: Performed By: #### L [id number] #### [facility] [address] [address] Judah Dubose M.D. [id number] RBC (Bld) [#/Vol] 4.45 10*6/uL Normal 4.00-5.20 [facility] Comment on above: Performed By: #### L [id number] #### [facility] LAB [address] [address] Judah Dubose M.D. [id number] WBC (Bld) [#/Vol] 12.08 10*3/uL High 4.50-11.00 [facility] Comment on above: Performed By: #### L [id number] #### [facility] [address] [address] Judah Dubose M.D. [id number] CONSULTon 09-14-2024 CONSULT Patient Name: Eric Patel MR #: [id number] : 1985 Physicians: Krystle, Physician (Family); Randy Garber MD (Referring) Chief complaint: Gricel Patel is a 39 y.o. female presented with right-sided chest pain not improving. History: I have reviewed the patient's past medical history, past surgical history, family history, social history. Today patient evaluated with history of appendectomy in the past. Who had presented about 7 days ago with worsening history of right-sided chest pain, and some small cough. She did not have fever or chills, mom who was at bedside states that patient was having a lot of night sweats. She did not have any history of travel and no sick contact. Patient remembered that in February she had some flulike symptoms, and the dad also had similar symptoms. She did not have any history of pets or any history of vomiting. She was found on admission with Tmax of 98.9. Patient states that she vapes, but no smoking.. Patient had initially presented at [facility], was found with some Nonspecific right pleural fluid and was transferred to [facility] for continuation of treatment. She was thought of having empyema, and has since been followed by the cargo router, was status post percutaneous chest tube insertion by the interventional radiologist at the right chest.She had pleural fluid analysis that showed an RBC of 13,000, WBC of 42,000 and neutrophil of 91%. LDH was more than 2000 MRSA swab was negative. And patient also was found with leukocytosis WBC of 19,000 since on admission. Blood cultures have shown no growth including pleural fluid culture with no growth. Patient had a repeat CT scan that had shown right-sided chest tube in place, with significant improvement of hydropneumothorax in the right side small to moderate amount of residual pleural fluid and pleural thickening with small loculated fluid noted, moderate residual infiltrate noted. Patient is currently being evaluated for right-sided empyema, pneumonia, with loculated pleural fluid, leukocytosis, right-sided chest pain, and also for antibiotics management.. History reviewed. No pertinent past medical history. Past Surgical History: Procedure Laterality Date APPENDECTOMY CV IR INTERVENTIONAL RADIOLOGY Right 09/10/2024 Procedure: VR Chest Tube Right; Surgeon: Deanna Valdes DO; Location: IR LAB; Service: Interventional Radiology; Laterality: Right; History reviewed. No pertinent family history. Social History [1] Travel History: None Animal Contact: None Medications: I have reviewed the patient's medications. Scheduled Meds: cefTRIAXone (ROCEPHIN) IVPB 2,000 mg Intravenous Q24H enoxaparin (LOVENOX) injection 40 mg Subcutaneous Daily lidocaine 1 patch Transdermal Daily metroNIDAZOLE 500 mg Intravenous Q8H nicotine 1 patch Transdermal Daily polyethylene glycol 17 g Oral Daily senna-docusate 1 tablet Oral BID sodium chloride (PF) 5 mL Intravenous Q8H [facility] Allergy Information: I have reviewed the patient's allergies. Patient has no known allergies. Review of Systems: Review of Systems Constitutional: Positive for fatigue. Negative for chills and fever. Respiratory: Positive for cough. Negative for shortness of breath and wheezing. Cardiovascular: Positive for chest pain. Negative for palpitations and leg swelling. Gastrointestinal: Negative for abdominal distention, abdominal pain, constipation, diarrhea, nausea and vomiting. Endocrine: Negative for polydipsia, polyphagia and polyuria. Genitourinary: Negative for dysuria, flank pain, frequency and hematuria. Musculoskeletal: Negative for joint swelling, neck pain and neck stiffness. Skin: Negative for color change, pallor and rash. Neurological: Negative for dizziness, weakness, numbness and headaches. Psychiatric/Behavioral : Negative for confusion. Labs: Lab Results Component Value Date WBC 12.08 (H) 09/14/2024 HGB 13.0 09/14/2024 HCT 40.2 09/14/2024 MCV 90.3 09/14/2024 PLT 481 (H) 09/14/2024 No results found for: HGBA1C No results found for: SEDRATE No results found for: CRP Radiology: CT Chest Thorax With Contrast Final Result 1. Right chest tube unchanged in position. Small to moderate residual right pleural effusion with pleural thickening in the inferolateral right chest with small loculated components posteriorly and along the right major fissure. Small pneumothorax component is unchanged. 2. Svap-sh-rhppeued infiltrative changes and atelectasis in the right lower lobe and right middle lobe, unchanged. Ongoing pneumonia/inflammatory airways disease in this area is a consideration. 3. Minimal atelectasis in the left lower lobe. [employer] Workstation ID: [id number] CT Chest Without Contrast Final Result 1. Right chest tube tip positioned in the medial right cardiophrenic region with significant improvement in the right-side (more content not included)... Normal [facility] CRP [Mass/Vol]on 09-14-2024 Interpretation and review of laboratory results Abnormal [facility] CRP, INFLAMMATIONon 09-15-19 25 CRP [Mass/Vol] 57.1 mg/L High 0.0-10.0 [facility] Comment on above: Performed By: #### [id number] #### [facility] [address] [place], [place] [address] Judah Dubose M.D. [id number] CRP, Inflammationon 09-15-19 CRP [Mass/Vol] 57.1 mg/L High 0.0 - 10.0 mg/L [facility] CT CHEST WITH CONTRASTon CT CHEST WITH CONTRAST EXAMINATION: CT CHEST WITH CONTRAST - 09/14/2024 AT 1:05 P.M. COMPARISON: CT chest without IV contrast examinations dated 09/14/2024 at 9:41 a.m. and 09/09/2024. ADDITIONAL HISTORY: ORDERING SYSTEM PROVIDED HISTORY: concern for absess vs mass. ORDERING SYSTEM PROVIDED DIAGNOSIS CODES: J18.9 Parapneumonic effusion J91.8 Parapneumonic effusion TECHNIQUE: Helical images were obtained through the chest after the administration of intravenous contrast (IOPAMIDOL 370 MG IODINE/ML (76 %) INTRAVENOUS SOLUTION - 75 mL,). Multiplanar reconstructions were created. Dose reduction techniques were achieved by using automated exposure control and/or adjustment of mA and/or kV according to patient size and/or use of iterative reconstruction technique. FINDINGS: Right chest tube is unchanged in position with the tip in the medial right cardiophrenic region. Small residual right pleural effusion as well as muvg-oy-oqdglgmz pleural thickening in the inferolateral right chest again noted. Loculated component to the effusion in the posterior-inferior right costophrenic sulcus measures 2.2 cm in width. A small amount of loculated fluid along the right major fissure is also again noted, measuring 1.2 cm in AP dimension. There is mild enhancement of the visceral and parietal pleural surfaces around the pleural fluid. No discrete pleural mass is identified. Stable small right pneumothorax component, measuring 5 mm in the anterolateral right chest. There is no left-sided pneumothorax or pleural effusion. Moderate infiltrative changes and atelectasis are again noted in the right lower lobe and right middle lobe, unchanged compared to the earlier study. Minimal linear atelectasis in the left lower lobe along with small calcified granulomas also again noted. No new pulmonary process is identified. There is a stable smoothly marginated 5 mm juxtapleural nodule in the periphery of the right upper lobe, likely another granuloma. A small amount of retained secretions are noted in the trachea. Central airways are otherwise clear. Calcified lymph nodes again seen in the mediastinum and anatoliy. There are stable borderline enlarged noncalcified right-sided mediastinal and hilar lymph nodes, likely reactive. No significant abnormality is identified in the thyroid gland. Heart remains normal in size. No pericardial effusion. Thoracic aorta is normal in caliber without dissection. Calcified granulomas again noted in the spleen. No significant abnormality is identified in the upper abdomen. No acute fracture or suspicious osseous lesion is identified. Dystrophic calcifications at the right glenohumeral joint again noted. Degenerative changes in the dorsal spine. IMPRESSION: 1. Right chest tube unchanged in position. Small to moderate residual right pleural effusion with pleural thickening in the inferolateral right chest with small loculated components posteriorly and along the right major fissure. Small pneumothorax component is unchanged. 2. Tabi-eq-sufmqiwq infiltrative changes and atelectasis in the right lower lobe and right middle lobe, unchanged. Ongoing pneumonia/inflammatory airways disease in this area is a consideration. 3. Minimal atelectasis in the left lower lobe. [employer] Workstation ID: [id number] Dictated by: CHANG BLANCHARD on [facility] Sep 14, 2024 2:58:42 PM EDT Transcribed by: VICKI TALBERT on [facility] Sep 14, 2024 3:18:19 PM EDT Finalized by: CHANG BLANCHARD on [facility] Sep 14, 2024 3:33:33 PM EDT Normal [facility] Comment on above: Order Comment: Injur y/Trauma or Illness?:Illness/OtherHow long have you had these symptoms (acute/chronic)?:AcuteReason for exam?:f/u for empyema, concern for abcess vs massType of Exam?:InitialAdditional signs and symptoms?:. CT CHEST WITHOUT CONTRASTon 09-14-2024 CT CHEST WITHOUT CONTRAST EXAMINATION: CT CHEST WITHOUT CONTRAST - 09/14/2024 COMPARISON: CT chest without IV contrast dated 09/09/2024. ADDITIONAL HISTORY: ORDERING SYSTEM PROVIDED HISTORY: empyema. ORDERING SYSTEM PROVIDED DIAGNOSIS CODES: J18.9 Parapneumonic effusion J91.8 Parapneumonic effusion TECHNIQUE: Helical images were obtained through the chest without intravenous contrast. Multiplanar reconstructions were created. Dose reduction techniques were achieved by using automated exposure control and/or adjustment of mA and/or kV according to patient size and/or use of iterative reconstruction technique. FINDINGS: There is a chest tube extending into the medial right cardiophrenic region, with the tip positioned along the right side of the pericardium. There is a small amount of residual pleural fluid and sumz-vk-uzufnaef pleural thickening in the posterolateral right chest, including a small, 2.6 cm, loculated component posteriorly. Another small, 1.0 cm, loculated component along the right major fissure is also noted. The amount of pleural fluid and pleural gas has significantly decreased compared to the 09/09/2024 CT. Trace anterior right pneumothorax measures 5 mm, also significantly improved, previously measuring 1.9 cm. There is no left-sided pleural effusion or pneumothorax. Moderate infiltrative changes in the mid to lower right lung are again noted that have also improved. Small calcified granulomas again seen in the left lung base along with minimal linear atelectasis. The right upper lung and left lung are otherwise clear. Central airways are clear. The heart is normal in size. No coronary artery calcifications are identified. Calcified mediastinal and hilar lymph nodes again noted along with a few top normal sized lymph nodes, likely reactive. No significant abnormality identified in the thyroid gland. Thoracic aorta remains normal in caliber. Calcified granulomas again seen in the spleen. No significant abnormality identified in the upper abdomen. Chronic and degenerative changes again seen in the dorsal spine. Dystrophic calcifications around the right shoulder joint also again noted. IMPRESSION: 1. Right chest tube tip positioned in the medial right cardiophrenic region with significant improvement in the right-sided hydropneumothorax seen on the 09/09/2024 CT. Small to moderate amount of residual pleural fluid and pleural thickening, including small loculated components posteriorly and along the right major fissure. Trace right pneumothorax component also significantly improved. 2. Moderate residual infiltrative changes in the mid to lower right lung, also improved, that could be an area of ongoing pneumonia. Minimal atelectasis in the left lower lobe. [facility]/ Workstation ID: [id number] Dictated by: CHANG BLANCHARD on [facility] Sep 14, 2024 2:51:32 PM EDT Transcribed by: VICKI TALBERT on MonSep 14, 2024 2:57:15 PM EDT Finalized by: CHANG BLANCHARD on [facility] Sep 14, 2024 2:59:12 PM EDT [facility] Comment on above: Order Comment: Injur y/Trauma or Illness?:Illness/Other How long have you had these symptoms (acute/chronic)?:Acute Reason for exam?:Chest tube/empyema History of cancer?:u Surgeries, chemotherapy, or radiation?:u Type of Exam?:Ongoing Additional signs and symptoms?:Chest tube/empyema CT Chest W contrast Mary 1. Right chest tube unchanged in position. Small to moderate residual right pleural effusion with pleural thickening in the inferolateral right chest with small loculated components posteriorly and along the right major fissure. Small pneumothorax component is unchanged. 2. Qdto-sd-ajaimqsj infiltrative changes and atelectasis in the right lower lobe and right middle lobe, unchanged. Ongoing pneumonia/inflammatory airways disease in this area is a consideration. 3. Minimal atelectasis in the left lower lobe. [employer] Workstation ID: [id number] Yunzhisheng EXAMINATION: CT CHEST WITH CONTRAST - 09/14/2024 AT 1:05 P.M. COMPARISON: CT chest without IV contrast examinations dated 09/14/2024 at 9:41 a.m. and 09/09/2024. ADDITIONAL HISTORY: ORDERING SYSTEM PROVIDED HISTORY: concern for absess vs mass. ORDERING SYSTEM PROVIDED DIAGNOSIS CODES: J18.9 Parapneumonic effusion J91.8 Parapneumonic effusion TECHNIQUE: Helical images were obtained through the chest after the administration of intravenous contrast (IOPAMIDOL 370 MG IODINE/ML (76 %) INTRAVENOUS SOLUTION - 75 mL,). Multiplanar reconstructions were created. Dose reduction techniques were achieved by using automated exposure control and/or adjustment of mA and/or kV according to patient size and/or use of iterative reconstruction technique. FINDINGS: Right chest tube is unchanged in position with the tip in the medial right cardiophrenic region. Small residual right pleural effusion as well as gxxe-qe-titjmgbg pleural thickening in the inferolateral right chest again noted. Loculated component to the effusion in the posterior-inferior right costophrenic sulcus measures 2.2 cm in width. A small amount of loculated fluid along the right major fissure is also again noted, measuring 1.2 cm in AP dimension. There is mild enhancement of the visceral and parietal pleural surfaces around the pleural fluid. No discrete pleural mass is identified. Stable small right pneumothorax component, measuring 5 mm in the anterolateral right chest. There is no left-sided pneumothorax or pleural effusion. Moderate infiltrative changes and atelectasis are again noted in the right lower lobe and right middle lobe, unchanged compared to the earlier study. Minimal linear atelectasis in the left lower lobe along with small calcified granulomas also again noted. No new pulmonary process is identified. There is a stable smoothly marginated 5 mm juxtapleural nodule in the periphery of the right upper lobe, likely another granuloma. A small amount of retained secretions are noted in the trachea. Central airways are otherwise clear. Calcified lymph nodes again seen in the mediastinum and anatoliy. There are stable borderline enlarged noncalcified right-sided mediastinal and hilar lymph nodes, likely reactive. No significant abnormality is identified in the thyroid gland. Heart remains normal in size. No pericardial effusion. Thoracic aorta is normal in caliber without dissection. Calcified granulomas again noted in the spleen. No significant abnormality is identified in the upper abdomen. No acute fracture or suspicious osseous lesion is identified. Dystrophic calcifications at the right glenohumeral joint again noted. Degenerative changes in the dorsal spine. [facility], Chang Arce MD - 09/14/2024 EXAMINATION: CT CHEST WITH CONTRAST - 09/14/2024 AT 1:05 P.M. COMPARISON: CT chest without IV contrast examinations dated 09/14/2024 at 9:41 a.m. and 09/09/2024. ADDITIONAL HISTORY: ORDERING SYSTEM PROVIDED HISTORY: concern for absess vs mass. ORDERING SYSTEM PROVIDED DIAGNOSIS CODES: J18.9 Parapneumonic effusion J91.8 Parapneumonic effusion TECHNIQUE: Helical images were obtained through the chest after the administration of intravenous contrast (IOPAMIDOL 370 MG IODINE/ML (76 %) INTRAVENOUS SOLUTION - 75 mL,). Multiplanar reconstructions were created. Dose reduction techniques were achieved by using automated exposure control and/or adjustment of mA and/or kV according to patient size and/or use of iterative reconstruction technique. FINDINGS: Right chest tube is unchanged in position with the tip in the medial right cardiophrenic region. Small residual right pleural effusion as well as attm-eb-zqjistdr pleural thickening in the inferolateral right chest again noted. Loculated component to the effusion in the posterior-inferior right costophrenic sulcus measures 2.2 cm in width. A small amount of loculated fluid along the right major fissure is also again noted, measuring 1.2 cm in AP dimension. There is mild enhancement of the visceral and parietal pleural surfaces around the pleural fluid. No discrete pleural mass is identified. Stable small right pneumothorax component, measuring 5 mm in the anterolateral right chest. There is no left-sided pneumothorax or pleural effusion. Moderate infiltrative changes and atelectasis are again noted in the right lower lobe and right middle lobe, unchanged compared to the earlier study. Minimal linear atelectasis in the left lower lobe along with small calcified granulomas also again noted. No new pulmonary process is identified. There is a stable smoothly marginated 5 mm juxtapleural nodule in the periphery of the right upper lobe, likely another granuloma. A small amount of retained secretions are noted in the trachea. Central airways are otherwise clear. Calcified lymph nodes again seen in the mediastinum and anatoliy. There are stable borderline enlarged noncalcified right-sided mediastinal and hilar lymph nodes, likely reactive. No significant abnormality is identified in the thyroid gland. Heart remains normal in size. No pericardial effusion. Thoracic aorta is normal in caliber without dissection. Calcified granulomas again noted in the spleen. No significant abnormality is identified in the upper abdomen. No acute fracture or suspicious osseous lesion is identified. Dystrophic calcifications at the right glenohumeral joint again noted. Degenerative changes in the dorsal spine. IMPRESSION: 1. Right chest tube unchanged in position. Small to moderate residual right pleural effusion with pleural thickening in the inferolateral right chest with small loculated components posteriorly and along the right major fissure. Small pneumothorax component is unchanged. 2. Xkcn-ah-drelvofe infiltrative changes and atelectasis in the right lower lobe and right middle lobe, unchanged. Ongoing pneumonia/inflammatory airways disease in this area is a consideration. 3. Minimal atelectasis in the left lower lobe. [employer] Workstation ID: [id number] [facility] Radiology Study observation (narrative) [facility] CT Chest WO contraston 09-14 1. Right chest tube tip positioned in the medial right cardiophrenic region with significant improvement in the right-sided hydropneumothorax seen on the 09/09/2024 CT. Small to moderate amount of residual pleural fluid and pleural thickening, including small loculated components posteriorly and along the right major fissure. Trace right pneumothorax component also significantly improved. 2. Moderate residual infiltrative changes in the mid to lower right lung, also improved, that could be an area of ongoing pneumonia. Minimal atelectasis in the left lower lobe. [employer] Workstation ID: [id number] Yunzhisheng EXAMINATION: CT CHEST WITHOUT CONTRAST - 09/14/2024 COMPARISON: CT chest without IV contrast dated 09/09/2024. ADDITIONAL HISTORY: ORDERING SYSTEM PROVIDED HISTORY: empyema. ORDERING SYSTEM PROVIDED DIAGNOSIS CODES: J18.9 Parapneumonic effusion J91.8 Parapneumonic effusion TECHNIQUE: Helical images were obtained through the chest without intravenous contrast. Multiplanar reconstructions were created. Dose reduction techniques were achieved by using automated exposure control and/or adjustment of mA and/or kV according to patient size and/or use of iterative reconstruction technique. FINDINGS: There is a chest tube extending into the medial right cardiophrenic region, with the tip positioned along the right side of the pericardium. There is a small amount of residual pleural fluid and wdnd-ia-rwypmewj pleural thickening in the posterolateral right chest, including a small, 2.6 cm, loculated component posteriorly. Another small, 1.0 cm, loculated component along the right major fissure is also noted. The amount of pleural fluid and pleural gas has significantly decreased compared to the 09/09/2024 CT. Trace anterior right pneumothorax measures 5 mm, also significantly improved, previously measuring 1.9 cm. There is no left-sided pleural effusion or pneumothorax. Moderate infiltrative changes in the mid to lower right lung are again noted that have also improved. Small calcified granulomas again seen in the left lung base along with minimal linear atelectasis. The right upper lung and left lung are otherwise clear. Central airways are clear. The heart is normal in size. No coronary artery calcifications are identified. Calcified mediastinal and hilar lymph nodes again noted along with a few top normal sized lymph nodes, likely reactive. No significant abnormality identified in the thyroid gland. Thoracic aorta remains normal in caliber. Calcified granulomas again seen in the spleen. No significant abnormality identified in the upper abdomen. Chronic and degenerative changes again seen in the dorsal spine. Dystrophic calcifications around the right shoulder joint also again noted. [employer] [facility] Chang Blanchard MD - 09/14/2024 EXAMINATION: CT CHEST WITHOUT CONTRAST - 09/14/2024 COMPARISON: CT chest without IV contrast dated 09/09/2024. ADDITIONAL HISTORY: ORDERING SYSTEM PROVIDED HISTORY: empyema. ORDERING SYSTEM PROVIDED DIAGNOSIS CODES: J18.9 Parapneumonic effusion J91.8 Parapneumonic effusion TECHNIQUE: Helical images were obtained through the chest without intravenous contrast. Multiplanar reconstructions were created. Dose reduction techniques were achieved by using automated exposure control and/or adjustment of mA and/or kV according to patient size and/or use of iterative reconstruction technique. FINDINGS: There is a chest tube extending into the medial right cardiophrenic region, with the tip positioned along the right side of the pericardium. There is a small amount of residual pleural fluid and vgxk-mn-kexhvnwy pleural thickening in the posterolateral right chest, including a small, 2.6 cm, loculated component posteriorly. Another small, 1.0 cm, loculated component along the right major fissure is also noted. The amount of pleural fluid and pleural gas has significantly decreased compared to the 09/09/2024 CT. Trace anterior right pneumothorax measures 5 mm, also significantly improved, previously measuring 1.9 cm. There is no left-sided pleural effusion or pneumothorax. Moderate infiltrative changes in the mid to lower right lung are again noted that have also improved. Small calcified granulomas again seen in the left lung base along with minimal linear atelectasis. The right upper lung and left lung are otherwise clear. Central airways are clear. The heart is normal in size. No coronary artery calcifications are identified. Calcified mediastinal and hilar lymph nodes again noted along with a few top normal sized lymph nodes, likely reactive. No significant abnormality identified in the thyroid gland. Thoracic aorta remains normal in caliber. Calcified granulomas again seen in the spleen. No significant abnormality identified in the upper abdomen. Chronic and degenerative changes again seen in the dorsal spine. Dystrophic calcifications around the right shoulder joint also again noted. IMPRESSION: 1. Right chest tube tip positioned in the medial right cardiophrenic region with significant improvement in the right-sided hydropneumothorax seen on the 09/09/2024 CT. Small to moderate amount of residual pleural fluid and pleural thickening, including small loculated components posteriorly and along the right major fissure. Trace right pneumothorax component also significantly improved. 2. Moderate residual infiltrative changes in the mid to lower right lung, also improved, that could be an area of ongoing pneumonia. Minimal atelectasis in the left lower lobe. [facility]/rf Workstation ID: [id number] [facility] Radiology Study observation (narrative) [facility] HIV 1/2 SCREEN (4TH GENERATI ON)on 09-14-2024 HIV 1-2 SCREEN Negative Normal Negative [facility] Comment on above: Order Comment: This assay screens for the presence of HIV-1, HIV-2 antibodies and for the presence of HIV-1 antigen.Test performed using B[employer] SHELLY immunoassay system Performed By: #### [id number] #### [facility] [address], [place] [address] Judah Dubose M.D. [id number] LEGIONELLA ANTIGEN, URINEon 09-14-2024 LEGIONELLA ANTIGEN, URINE LEGIONELLA ANTIGEN Negative for Legionella antigen COMMENT: Results may be affected if patient is on diuretics. INTERPRETATION OF RESULTS: Test detects Legionella pneumophilia serogroup 1 antigens in urine. Legionnaires disease cannot be ruled out since other serogroups and species may also cause disease. [facility] Comment on above: Performed By: #### [id number] #### [facility] [address] [place], [place] [address] Judah Dubose M.D. [id number] Legionella Antigen, UrineOrd ered By: Dawit Barajas on 09-14-2024 Interpretation and review of laboratory results Normal [facility] L. pneumophila Ag Ql (U) Negative Negative for Legionella antigen [facility] Comment on above: COMMENT: Results may be affected if patient is on diuretics. INTERPRETATION OF RESULTS: Test detects Legionella pneumophilia serogroup 1 antigens in urine. Legionnaires disease cannot be ruled out since other serogroups and species may also cause disease. [facility] S. pneumoniae Urine Antigeno n 09-14-2024 Interpretation and review of laboratory results Normal [facility] S. pneumoniae Ag Ql (U) Negative Presumptive Negative for Pneumococcal pneumoniae [facility] Comment on above: A negative result do es not rule out Streptococcus pneumoniae infection since the antigen present in the sample may be below the detection limit of the test. [facility] S.PNEUMONIAE URINE ANTIGENon 09-14-2024 S.PNEUMONIAE URINE ANTIGEN STREP PNEUMONIAE ANTIGEN, URINE Presumptive Negative for Pneumococcal pneumoniae A negative result does not rule out Streptococcus pneumoniae infection since the antigen present in the sample may be below the detection limit of the test. [facility] Comment on above: Performed By: #### [id number] #### [facility] [address] [place], [place] [address] Judah Dubose M.D. [id number] BASIC METABOLIC PANELon 08-26-2024 Anion gap [Moles/Vol] 14 mmol/L Normal 10-20 [facility] Comment on above: Order Comment: [facility] has implemented the eGFR calculation approach that does not have a coefficient for race that conforms to the NKF-ASN Task Force Recommendations. Performed By: #### [id number] #### [facility] [address] [place], [place] [address] Judah Dubose M.D. [id number] Calcium [Mass/Vol] 8.6 mg/dL Normal 8.4-10.2 [facility] Comment on above: Order Comment: [facility] has implemented the eGFR calculation approach that does not have a coefficient for race that conforms to the NKF-ASN Task Force Recommendations. Performed By: #### [id number] #### [facility] [address] [place] [id number] Judah Dubose M.D. [id number] Chloride [Moles/Vol] 103 mmol/L Normal 98-108 [facility] Comment on above: Order Comment: [facility] has implemented the eGFR calculation approach that does not have a coefficient for race that conforms to the NKF-ASN Task Force Recommendations. Performed By: #### [id number] #### [facility] [address] [place], [place] [address] Judah Dubose M.D. [id number] Creatinine [Mass/Vol] 0.59 mg/dL Normal 0.40-1.10 [facility] Comment on above: Order Comment: [facility] has implemented the eGFR calculation approach that does not have a coefficient for race that conforms to the NKF-ASN Task Force Recommendations. Performed By: #### [id number] #### [facility] [address] [place], [place] [address] Judah Dubose M.D. [id number] EGFR 117 mL/min/1.73 m2 Normal >=60 [facility] Comment on above: Order Comment: [facility] has implemented the eGFR calculation approach that does not have a coefficient for race that conforms to the NKF-ASN Task Force Recommendations. Result Comment: Rhea mated GFR was calculated using the 2020 CKD-EPI creatinine equation. Performed By: #### [id number] #### [facility] [address] [place] [address] Judah Dubose M.D. [id number] Glucose [Mass/Vol] 112 mg/dL High 65-99 [facility] Comment on above: Order Comment: [facility] has implemented the eGFR calculation approach that does not have a coefficient for race that conforms to the NKF-ASN Task Force Recommendations. Performed By: #### 4 [id number] #### LAB [address] [address] Judah Dubose M.D. [id number] HCO3 (Bld) [Moles/Vol] 25 mmol/L Normal 21-32 [facility] Comment on above: Order Comment: [facility] has implemented the eGFR calculation approach that does not have a coefficient for race that conforms to the NKF-ASN Task Force Recommendations. Performed By: #### 4 7222 #### LAB [address] [address] Judah Dubose M.D. [id number] Potassium [Moles/Vol] 3.7 mmol/L Normal 3.5-5.1 [facility] Comment on above: Order Comment: [facility] has implemented the eGFR calculation approach that does not have a coefficient for race that conforms to the NKF-ASN Task Force Recommendations. Performed By: #### 4 [id number] #### LAB [address] [address] Judah Dubose M.D. [id number] Sodium [Moles/Vol] 138 mmol/L Normal 135-145 [facility] Comment on above: Order Comment: [facility] has implemented the eGFR calculation approach that does not have a coefficient for race that conforms to the NKF-ASN Task Force Recommendations. Performed By: #### 4 7222 #### LAB [address] [place], [place] [address] Judah Dubose M.D. [id number] Urea nitrogen [Mass/Vol] 8 mg/dL Normal 8-25 [facility] Comment on above: Order Comment: [facility] has implemented the eGFR calculation approach that does not have a coefficient for race that conforms to the NKF-ASN Task Force Recommendations. Performed By: #### 4 7222 #### LAB [address] [place], [place] [address] Judah Dubose M.D. [id number] Urea nitrogen/Creatinine [Mass ratio] 13.6 mg/mg Normal 10.0-20.0 [facility] Comment on above: Order Comment: [facility] has implemented the eGFR calculation approach that does not have a coefficient for race that conforms to the NKF-ASN Task Force Recommendations. Performed By: #### 4 [id number] #### LAB [address] [place], [place] [address] Judah Dubose M.D. [id number] Basic metabolic 2000 panelon 2024 Anion gap [Moles/Vol] 14 mmol/L 10 - 20 mmol/L [facility] Calcium [Mass/Vol] 8.6 mg/dL 8.4 - 10. 2 mg/dL [facility] Chloride [Moles/Vol] 103 mmol/L 98 - 10 8 mmol/L [facility] Creatinine [Mass/Vol] 0.59 mg/dL 0.40 - 1.10 mg/dL [facility] GFR/1.73 sq M.predicted CKD-EPI (S/P/Bld) [Vol rate/Area] 117 - PINF [facility] Comment on above: Estimated GFR was ca lculated using the 2020 CKD-EPI creatinine equation. Glucose [Mass/Vol] 112 mg/dL High 65 - 99 mg/dL [facility] HCO3 [Moles/Vol] 25 mmol/L 21 - 32 mmol/L [facility] Interpretation and review of laboratory results Abnormal [facility] Potassium [Moles/Vol] 3.7 mmol/L 3.5 - 5.1 mmol/L [facility] Sodium [Moles/Vol] 138 mmol/L 135 - 145 mmol/L [facility] Urea nitrogen [Mass/Vol] 8 mg/dL 8 - 25 mg/dL [facility] Urea nitrogen/Creatinine [Mass ratio] 13.6 mg/mg 10.0 - 20.0 [facility] has implemented the eGFR calculation approach that does not have a coefficient for race that conforms to the NKF-ASN Task Force Recommendations. [facility] CBC Auto Differentialon 08-26 0-2024 Basophils (Bld) [#/Vol] 0.04 10*3/uL [facility] Basophils/100 WBC (Bld) 0.3 % [facility] Eosinophils (Bld) [#/Vol] 0.16 10*3/uL [facility] Eosinophils/100 WBC (Bld) 1.2 % [facility] Erythrocyte distribution width (RBC) [Entitic vol] 12.9 % 11.6 - 14.8 % [facility] Hematocrit (Bld) [Volume fraction] 40.5 % 36.0 - 46.0 % [facility] Hemoglobin (Bld) [Mass/Vol] 13.6 g/dL 12.0 - 16.0 g/dL [facility] Immature granulocytes (Bld) [#/Vol] 0.2 10*3/uL [facility] Immature granulocytes/100 WBC (Bld) 1.5 % [facility] Comment on above: The IG parameter is the percentage of metamyelocytes, myelocytes and promyelocytes. An immature granulocyte count (IG) of 1% or more suggests the possibility of infection, an IG count of 3% is very likely related to an infection. Interpretation and review of laboratory results Abnormal [facility] Lymphocytes (Bld) [#/Vol] 3.08 10*3/uL [facility] Lymphocytes/100 WBC (Bld) 23.6 % [facility] MCH (RBC) [Entitic mass] 29.4 pg 26.0 - 34.0 pg [facility] MCHC (RBC) [Mass/Vol] 33.6 g/dL 31.0 - 37.0 g/dL [facility] MCV (RBC) [Entitic vol] 87.7 fL 80.0 - 100.0 fL [facility] Monocytes (Bld) [#/Vol] 1.21 10*3/uL High [facility] Monocytes/100 WBC (Bld) 9.3 % [facility] Neutrophils (Bld) [#/Vol] 8.37 10*3/uL High [facility] Neutrophils/100 WBC (Bld) 64.1 % [facility] Nucleated RBC (Bld) [#/Vol] 0 10*3/uL [facility] Nucleated RBC/100 WBC (Bld) [Ratio] 0 % [facility] Platelet mean volume (Bld) [Entitic vol] 8.8 fL Low 9.4 - 12.4 fL [facility] Platelets (Bld) [#/Vol] 482 10*3/uL High [facility] RBC (Bld) [#/Vol] 4.62 10*6/uL [facility] WBC (Bld) [#/Vol] 13.06 10*3/uL [facility] CBC WITH AUTO DIFFERENTIALon 2024 AUTO NRBC 0.0 % [facility] Comment on above: Performed By: #### L [id number] #### LAB [address] [place] [address] Judah Dubose M.D. [id number] AUTO NRBC ABS COUNT 0.00 K/mcL Normal 0.00-0.00 [facility] Comment on above: Performed By: #### L [id number] #### LAB [address] [address] Judah Dubose M.D. [id number] BASOPHILS ABSOLUTE COUNT 0.04 K/mcL Normal 0.00-0.30 [facility] Comment on above: Performed By: #### L [id number] #### LAB [address] [place] [address] Judah Dubose M.D. [id number] Basophils/100 WBC (Bld) 0.3 % [facility] Comment on above: Performed By: #### L [id number] #### LAB [address] [place] [address] Judah Dubose M.D. [id number] Eosinophils (Bld) [#/Vol] 0.16 10*3/uL Normal 0.00-0.50 [facility] Comment on above: Performed By: #### L [id number] #### LAB [address] [place] [address] Judah Dubose M.D. [id number] Eosinophils/100 WBC (Bld) 1.2 % Normal [facility] Comment on above: Performed By: #### L [id number] #### LAB [address] [address] Judah Dubose M.D. [id number] Erythrocyte distribution width (RBC) [Ratio] 12.9 % Normal 11.6-14.8 [facility] Comment on above: Performed By: #### L [id number] #### LAB [address] [address] Judah Dubose M.D. [id number] Hematocrit (Bld) [Volume fraction] 40.5 % Normal 36.0-46.0 [facility] Comment on above: Performed By: #### L [id number] #### LAB [address] [address] Judah Dubose M.D. [id number] Hemoglobin (Bld) [Mass/Vol] 13.6 g/dL Normal 12.0-16.0 [facility] Comment on above: Performed By: #### L [id number] #### LAB [address] [place] [address] Judah Dubose M.D. [id number] IG ABSOLUTE 0.20 K/mcL Normal 0.00-0.30 [facility] Comment on above: Performed By: #### L [id number] #### LAB [address] [place] [address] Judah Dubose M.D. [id number] IG PERCENT 1.50 % Normal [facility] Comment on above: Result Comment: The IG parameter is the percentage of metamyelocytes, myelocytes and promyelocytes. An immature granulocyte count (IG) of 1% or more suggests the possibility of infection, an IG count of 3% is very likely related to an infection. Performed By: #### L [id number] #### LAB [address] [place] [address] Judah Dubose M.D. [id number] Lymphocytes (Bld) [#/Vol] 3.08 10*3/uL Normal 0.90-4.00 [facility] Comment on above: Performed By: #### L [id number] #### MH LAB [address] [address] Judah Dubose M.D. [id number] Lymphocytes/100 WBC (Bld) 23.6 % Normal [facility] Comment on above: Performed By: #### L [id number] #### LAB [address] [address] Judah Dubose M.D. [id number] MCH (RBC) [Entitic mass] 29.4 pg Normal 26.0-34.0 [facility] Comment on above: Performed By: #### L [id number] #### LAB [address] [address] Judah Dubose M.D. [id number] MCV (RBC) [Entitic vol] 87.7 fL Normal 80.0-100.0 [facility] Comment on above: Performed By: #### L [id number] #### LAB [address] [address] Judah Dubose M.D. [id number] MEAN CORPUSCULAR HEMOGLOBIN CONC 33.6 g/dL Normal 31.0-37.0 [facility] Comment on above: Performed By: #### L [id number] #### LAB [address] [address] Judah Dubose M.D. [id number] Monocytes (Bld) [#/Vol] 1.21 10*3/uL High 0.30-0.90 [facility] Comment on above: Performed By: #### L [id number] #### LAB [address] [address] Judah Dubose M.D. [id number] Monocytes/100 WBC (Bld) 9.3 % Normal [facility] Comment on above: Performed By: #### L [id number] #### LAB [address] [address] Judah Dubose M.D. [id number] NEUTROPHILS ABSOLUTE COUNT 8.37 K/mcL High 1.70-7.00 [facility] Comment on above: Performed By: #### L [id number] #### LAB [address] [address] Judah Dubose M.D. [id number] Neutrophils/100 WBC (Bld) 64.1 % Normal [facility] Comment on above: Performed By: #### L [id number] #### LAB [address] [address] Judah Dubose M.D. [id number] Platelet mean volume (Bld) [Entitic vol] 8.8 fL Low 9.4-12.4 [facility] Comment on above: Performed By: #### L [id number] #### MH LAB [address] [address] Judah Dubose M.D. [id number] Platelets (Bld) [#/Vol] 482 10*3/uL High 150-400 [facility] Comment on above: Performed By: #### L [id number] #### LAB [address] [address] Judah Dubose M.D. [id number] RBC (Bld) [#/Vol] 4.62 10*6/uL Normal 4.00-5.20 [facility] Comment on above: Performed By: #### L [id number] #### MH LAB [address] [address] Judah Dubose M.D. [id number] WBC (Bld) [#/Vol] 13.06 10*3/uL High 4.50-11.00 [facility] Comment on above: Performed By: #### L [id number] #### LAB [address] [address] Judah Dubose M.D. [id number] XR CHEST PA/APon 2024 XR CHEST PA/AP EXAMINATION: XR CHEST PA/AP HISTORY: ORDERING SYSTEM PROVIDED HISTORY: Chest tube/empyema, TECHNOLOGIST PROVIDED HISTORY: Illness/Other Reason for exam: Chest tube/empyema Cancer History: u Surgery, RadiationHistory: u Encounter Type: Ongoing Additional signs and symptoms: Chest tube/empyema ORDERING SYSTEM PROVIDED DIAGNOSIS CODES: J18.9 Parapneumonic effusion J91.8 Parapneumonic effusion COMPARISON: 09/12/2024 FINDINGS: One-view chest x-ray. Stable position of right basilar chest tube. No significant pneumothorax identified. Right basilar bandlike atelectasis with small pleural effusion. Left hemithorax is clear. Normal heart size. IMPRESSION: Stable right basilar chest tube position. Improved aeration of the right lung base with probable mild residual atelectasis and pleural effusion. No significant pneumothorax identified. ST/tde Workstation ID: [id number] Dictated by: ERIC RAYO on MonSep 13, 2024 8:49:39 AM EDT Transcribed by: REHANA VERDIN on MonSep 13, 2024 9:16:22 AM EDT Finalized by: ERIC RAYO on MonSep 13, 2024 8:27:46 PM EDT [facility] Comment on above: Order Comment: Injur y/Trauma or Illness?:Illness/OtherHow long have you had these symptoms (acute/chronic)?:AcuteReason for exam?:Chest tube/empyemaHistory of cancer?:uSurgeries, chemotherapy, or radiation?:uType of Exam?:OngoingAdditional signs and symptoms?:Chest tube/empyema XR Chest PA and Abdomen APon 2024 Stable right basilar chest tube position. Improved aeration of the right lung base with probable mild residual atelectasis and pleural effusion. No significant pneumothorax identified. ST/tde Workstation ID: [id number] GE RIS EXAMINATION: XR CHEST PA/AP HISTORY: ORDERING SYSTEM PROVIDED HISTORY: Chest tube/empyema, TECHNOLOGIST PROVIDED HISTORY: Illness/Other Reason for exam: Chest tube/empyema Cancer History: u Surgery, RadiationHistory: u Encounter Type: Ongoing Additional signs and symptoms: Chest tube/empyema ORDERING SYSTEM PROVIDED DIAGNOSIS CODES: J18.9 Parapneumonic effusion J91.8 Parapneumonic effusion COMPARISON: 09/12/2024 FINDINGS: One-view chest x-ray. Stable position of right basilar chest tube. No significant pneumothorax identified. Right basilar bandlike atelectasis with small pleural effusion. Left hemithorax is clear. Normal heart size. GE RIS Eric Rayo, DO - 2024 EXAMINATION: XR CHEST PA/AP HISTORY: ORDERING SYSTEM PROVIDED HISTORY: Chest tube/empyema, TECHNOLOGIST PROVIDED HISTORY: Illness/Other Reason for exam: Chest tube/empyema Cancer History: u Surgery, RadiationHistory: u Encounter Type: Ongoing Additional signs and symptoms: Chest tube/empyema ORDERING SYSTEM PROVIDED DIAGNOSIS CODES: J18.9 Parapneumonic effusion J91.8 Parapneumonic effusion COMPARISON: 09/12/2024 FINDINGS: One-view chest x-ray. Stable position of right basilar chest tube. No significant pneumothorax identified. Right basilar bandlike atelectasis with small pleural effusion. Left hemithorax is clear. Normal heart size. IMPRESSION: Stable right basilar chest tube position. Improved aeration of the right lung base with probable mild residual atelectasis and pleural effusion. No significant pneumothorax identified. [employer] Workstation ID: [id number] [facility] Radiology Study observation (narrative) [facility] BASIC METABOLIC PANELon 08-25 Anion gap [Moles/Vol] 13 mmol/L Normal 10-20 [facility] Comment on above: Order Comment: [facility] has implemented the eGFR calculation approach that does not have a coefficient for race that conforms to the NKF-ASN Task Force Recommendations. Performed By: #### 4 [id number] #### LAB [address] [place], [place] [address] Judah Dubose M.D. [id number] Calcium [Mass/Vol] 8.3 mg/dL Low 8.4-10.2 [facility] Comment on above: Order Comment: [facility] has implemented the eGFR calculation approach that does not have a coefficient for race that conforms to the NKF-ASN Task Force Recommendations. Performed By: #### 4 [id number] #### LAB [address] [place], [place] [address] Judah Dubose M.D. [id number] Chloride [Moles/Vol] 106 mmol/L Normal 98-108 [facility] Comment on above: Order Comment: [facility] has implemented the eGFR calculation approach that does not have a coefficient for race that conforms to the NKF-ASN Task Force Recommendations. Performed By: #### 4 [id number] #### LAB [address] [address] Judah Dubose M.D. [id number] Creatinine [Mass/Vol] 0.65 mg/dL Normal 0.40-1.10 [facility] Comment on above: Order Comment: [facility] has implemented the eGFR calculation approach that does not have a coefficient for race that conforms to the NKF-ASN Task Force Recommendations. Performed By: #### 4 [id number] #### LAB [address] [address] Judah Dubose M.D. [id number] EGFR 115 mL/min/1.73 m2 Normal >=60 [facility] Comment on above: Order Comment: [facility] has implemented the eGFR calculation approach that does not have a coefficient for race that conforms to the NKF-ASN Task Force Recommendations. Result Comment: Rhea mated GFR was calculated using the 2020 CKD-EPI creatinine equation. Performed By: #### 4 [id number] #### LAB [address] [address] Judah Dubose M.D. [id number] Glucose [Mass/Vol] 96 mg/dL Normal 65-99 [facility] Comment on above: Order Comment: [facility] has implemented the eGFR calculation approach that does not have a coefficient for race that conforms to the NKF-ASN Task Force Recommendations. Performed By: #### 4 [id number] #### LAB [address] [address] Judah Dubose M.D. [id number] HCO3 (Bld) [Moles/Vol] 25 mmol/L Normal 21-32 [facility] Comment on above: Order Comment: [facility] has implemented the eGFR calculation approach that does not have a coefficient for race that conforms to the NKF-ASN Task Force Recommendations. Performed By: #### 4 [id number] #### LAB [address] [address] Judah Dubose M.D. [id number] Potassium [Moles/Vol] 3.5 mmol/L Normal 3.5-5.1 [facility] Comment on above: Order Comment: [facility] has implemented the eGFR calculation approach that does not have a coefficient for race that conforms to the NKF-ASN Task Force Recommendations. Performed By: #### 4 [id number] #### LAB [address] [place], [place] [address] Judah Dubose M.D. [id number] Sodium [Moles/Vol] 140 mmol/L Normal 135-145 [facility] Comment on above: Order Comment: [facility] has implemented the eGFR calculation approach that does not have a coefficient for race that conforms to the NKF-ASN Task Force Recommendations. Performed By: #### 4 [id number] #### LAB [address] [place], [place] [address] Judah Dubose M.D. [id number] Urea nitrogen [Mass/Vol] 8 mg/dL Normal 8-25 [facility] Comment on above: Order Comment: [facility] has implemented the eGFR calculation approach that does not have a coefficient for race that conforms to the NKF-ASN Task Force Recommendations. Performed By: #### 4 [id number] #### LAB [address] [place], [place] [address] Judah Dubose M.D. [id number] Urea nitrogen/Creatinine [Mass ratio] 12.3 mg/mg Normal 10.0-20.0 [facility] Comment on above: Order Comment: [facility] has implemented the eGFR calculation approach that does not have a coefficient for race that conforms to the NKF-ASN Task Force Recommendations. Performed By: #### 4 [id number] #### LAB [address] [place], [place] [address] Judah Dubose M.D. [id number] Basic metabolic 2000 panelon 09-12-2024 Anion gap [Moles/Vol] 13 mmol/L 10 - 20 mmol/L [facility] Calcium [Mass/Vol] 8.3 mg/dL Low 8.4 - 10. 2 mg/dL [facility] Chloride [Moles/Vol] 106 mmol/L 98 - 10 8 mmol/L [facility] Creatinine [Mass/Vol] 0.65 mg/dL 0.40 - 1.10 mg/dL [facility] GFR/1.73 sq M.predicted CKD-EPI (S/P/Bld) [Vol rate/Area] 115 - PINF [facility] Comment on above: Estimated GFR was ca lculated using the 2020 CKD-EPI creatinine equation. Glucose [Mass/Vol] 96 mg/dL 65 - 99 mg/dL [facility] HCO3 [Moles/Vol] 25 mmol/L 21 - 32 mmol/L [facility] Interpretation and review of laboratory results Abnormal [facility] Potassium [Moles/Vol] 3.5 mmol/L 3.5 - 5.1 mmol/L [facility] Sodium [Moles/Vol] 140 mmol/L 135 - 145 mmol/L [facility] Urea nitrogen [Mass/Vol] 8 mg/dL 8 - 25 mg/dL [facility] Urea nitrogen/Creatinine [Mass ratio] 12.3 mg/mg 10.0 - 20.0 [facility] has implemented the eGFR calculation approach that does not have a coefficient for race that conforms to the NKF-ASN Task Force Recommendations. [facility] CBC Auto Differentialon 08-25 Basophils (Bld) [#/Vol] 0.04 10*3/uL [facility] Basophils/100 WBC (Bld) 0.3 % [facility] Eosinophils (Bld) [#/Vol] 0.03 10*3/uL [facility] Eosinophils/100 WBC (Bld) 0.2 % [facility] Erythrocyte distribution width (RBC) [Entitic vol] 12.6 % 11.6 - 14.8 % [facility] Hematocrit (Bld) [Volume fraction] 38 % 36.0 - 46.0 % [facility] Hemoglobin (Bld) [Mass/Vol] 12.4 g/dL 12.0 - 16.0 g/dL [facility] Immature granulocytes (Bld) [#/Vol] 0.21 10*3/uL [facility] Immature granulocytes/100 WBC (Bld) 1.4 % [facility] Comment on above: The IG parameter is the percentage of metamyelocytes, myelocytes and promyelocytes. An immature granulocyte count (IG) of 1% or more suggests the possibility of infection, an IG count of 3% is very likely related to an infection. Interpretation and review of laboratory results Abnormal [facility] Lymphocytes (Bld) [#/Vol] 2.94 10*3/uL [facility] Lymphocytes/100 WBC (Bld) 19.9 % [facility] MCH (RBC) [Entitic mass] 29 pg 26.0 - 34.0 pg [facility] MCHC (RBC) [Mass/Vol] 32.6 g/dL 31.0 - 37.0 g/dL [facility] MCV (RBC) [Entitic vol] 88.8 fL 80.0 - 100.0 fL [facility] Monocytes (Bld) [#/Vol] 1.27 10*3/uL High [facility] Monocytes/100 WBC (Bld) 8.6 % [facility] Neutrophils (Bld) [#/Vol] 10.31 10*3/uL High [facility] Neutrophils/100 WBC (Bld) 69.6 % [facility] Nucleated RBC (Bld) [#/Vol] 0 10*3/uL [facility] Nucleated RBC/100 WBC (Bld) [Ratio] 0 % [facility] Platelet mean volume (Bld) [Entitic vol] 9 fL Low 9.4 - 12.4 fL [facility] Platelets (Bld) [#/Vol] 435 10*3/uL High [facility] RBC (Bld) [#/Vol] 4.28 10*6/uL [facility] WBC (Bld) [#/Vol] 14.8 10*3/uL High [facility] CBC WITH AUTO DIFFERENTIALon 09-12-2024 AUTO NRBC 0.0 % Normal [facility] Comment on above: Performed By: #### [id number] #### LAB [address] [address] Judah Dubose M.D. [id number] AUTO NRBC ABS COUNT 0.00 K/mcL Normal 0.00-0.00 [facility] Comment on above: Performed By: #### [id number] #### LAB [address] [address] Judah Dubose M.D. [id number] BASOPHILS ABSOLUTE COUNT 0.04 K/mcL Normal 0.00-0.30 [facility] Comment on above: Performed By: #### 4 [id number] #### LAB [address] [address] Judah Dubose M.D. [id number] Basophils/100 WBC (Bld) 0.3 % Normal [facility] Comment on above: Performed By: #### 4 [id number] #### LAB [address] [address] Judah Dubose M.D. [id number] Eosinophils (Bld) [#/Vol] 0.03 10*3/uL Normal 0.00-0.50 [facility] Comment on above: Performed By: #### 4 [id number] #### LAB [address] [address] Judah Dubose M.D. [id number] Eosinophils/100 WBC (Bld) 0.2 % Normal [facility] Comment on above: Performed By: #### 4 [id number] #### LAB [address] [address] Judah Dubose M.D. [id number] Erythrocyte distribution width (RBC) [Ratio] 12.6 % Normal 11.6-14.8 [facility] Comment on above: Performed By: #### 4 [id number] #### LAB [address] [address] Judah Dubose M.D. [id number] Hematocrit (Bld) [Volume fraction] 38.0 % Normal 36.0-46.0 [facility] Comment on above: Performed By: #### 4 [id number] #### LAB [address] [address] Judah Dubose M.D. [id number] Hemoglobin (Bld) [Mass/Vol] 12.4 g/dL Normal 12.0-16.0 [facility] Comment on above: Performed By: #### 4 [id number] #### LAB [address] [address] Judah Dubose M.D. [id number] IG ABSOLUTE 0.21 K/mcL Normal 0.00-0.30 [facility] Comment on above: Performed By: #### 4 4090 #### LAB [address] [address] Judah Dubose M.D. [id number] IG PERCENT 1.40 % Normal [facility] Comment on above: Result Comment: The IG parameter is the percentage of metamyelocytes, myelocytes and promyelocytes. An immature granulocyte count (IG) of 1% or more suggests the possibility of infection, an IG count of 3% is very likely related to an infection. Performed By: #### 4 [id number] #### LAB [address] [address] Judah Dubose M.D. [id number] Lymphocytes (Bld) [#/Vol] 2.94 10*3/uL Normal 0.90-4.00 [facility] Comment on above: Performed By: #### 4 [id number] #### LAB [address] [address] Judah Dubose M.D. [id number] Lymphocytes/100 WBC (Bld) 19.9 % Normal [facility] Comment on above: Performed By: #### 4 [id number] #### LAB [address] [address] Judah Dubose M.D. [id number] MCH (RBC) [Entitic mass] 29.0 pg Normal 26.0-34.0 [facility] Comment on above: Performed By: #### 4 4090 #### LAB [address] [address] Judah Dubose M.D. [id number] MCV (RBC) [Entitic vol] 88.8 fL Normal 80.0-100.0 [facility] Comment on above: Performed By: #### 4 [id number] #### LAB [address] [address] Judah Dubose M.D. [id number] MEAN CORPUSCULAR HEMOGLOBIN CONC 32.6 g/dL Normal 31.0-37.0 [facility] Comment on above: Performed By: #### 4 4090 #### LAB [address] [address] Judah Dubose M.D. [id number] Monocytes (Bld) [#/Vol] 1.27 10*3/uL High 0.30-0.90 [facility] Comment on above: Performed By: #### 4 4090 #### LAB [address] [address] Judah Dubose M.D. [id number] Monocytes/100 WBC (Bld) 8.6 % Normal [facility] Comment on above: Performed By: #### 4 4090 #### LAB [address] [address] Judah Dubose M.D. [id number] NEUTROPHILS ABSOLUTE COUNT 10.31 K/mcL High 1.70-7.00 [facility] Comment on above: Performed By: #### 4 4090 #### LAB [address] [address] Judah Dubose M.D. [id number] Neutrophils/100 WBC (Bld) 69.6 % [facility] Comment on above: Performed By: #### 4 4090 #### LAB [address] [address] Judah Dubose M.D. [id number] Platelet mean volume (Bld) [Entitic vol] 9.0 fL Low 9.4-12.4 [facility] Comment on above: Performed By: #### 4 4090 #### LAB [address] [address] Judah Dubose M.D. [id number] Platelets (Bld) [#/Vol] 435 10*3/uL High 150-400 [facility] Comment on above: Performed By: #### 4 4090 #### LAB [address] [address] Judah Dubose M.D. [id number] RBC (Bld) [#/Vol] 4.28 10*6/uL Normal 4.00-5.20 [facility] Comment on above: Performed By: #### 4 4090 #### LAB [address] [address] Judah Dubose M.D. [id number] WBC (Bld) [#/Vol] 14.80 10*3/uL High 4.50-11.00 [facility] Comment on above: Performed By: #### 4 4090 #### LAB [address] [address] Judah Dubose M.D. [id number] XR CHEST PA/APon 09-12-2024 XR CHEST PA/AP EXAMINATION: XR CHEST PA/AP HISTORY: ORDERING SYSTEM PROVIDED HISTORY: Chest tube/empyema, TECHNOLOGIST PROVIDED HISTORY: Illness/Other Reason for exam: Chest tube/empyema Cancer History: u Surgery, RadiationHistory: u Encounter Type: Ongoing Additional signs and symptoms: Chest tube/empyema ORDERING SYSTEM PROVIDED DIAGNOSIS CODES: J18.9 Parapneumonic effusion J91.8 Parapneumonic effusion COMPARISON: Portable chest radiograph dated 09/11/2024. TECHNIQUE: AP upright portable chest radiograph performed. FINDINGS: Stable pleural catheter with the distal tip along the medial aspect of the right lower chest. There is a persistent however smaller, small pneumothorax along the lateral margin of the right lower chest measuring 1.1 cm in transverse dimension. There is persistent patchy and dense consolidation within the right lower chest suggesting atelectasis and/or infiltrate. There is a small amount of pleural fluid along the lateral margin of the right mid chest. There is no pulmonary vascular congestion. There is a small calcified granuloma laterally within the left upper chest. There is no acute osseous abnormality. There is slight scoliosis. There are mild degenerative changes along the spine. There is calcific tendinitis distal aspect of the right supraspinatus tendon. IMPRESSION: Stable pleural catheter with the distal tip along the medial aspect of the right lower chest. There is a persistent however smaller, small pneumothorax along the lateral margin of the right lower chest measuring 1.1 cm in transverse dimension. There is persistent patchy and dense consolidation within the right lower chest suggesting atelectasis and/or infiltrate. There is a small amount of pleural fluid along the lateral margin of the right mid chest. Workstation ID: [id number] Dictated by: TOMÁS MESSINA on MonSep 12, 2024 6:45:38 AM EDT Transcribed by: TOMÁS MESSINA on MonSep 12, 2024 6:45:38 AM EDT Finalized by: TOMÁS MESSINA on MonSep 12, 2024 6:45:38 AM EDT Normal [facility] Comment on above: Order Comment: Injur y/Trauma or Illness?:Illness/Other How long have you had these symptoms (acute/chronic)?:Acute Reason for exam?:Chest tube/empyema History of cancer?:u Surgeries, chemotherapy, or radiation?:u Type of Exam?:Ongoing Additional signs and symptoms?:Chest tube/empyema XR Chest PA and Abdomen APon 09-12-2024 Stable pleural catheter with the distal tip along the medial aspect of the right lower chest. There is a persistent however smaller, small pneumothorax along the lateral margin of the right lower chest measuring 1.1 cm in transverse dimension. There is persistent patchy and dense consolidation within the right lower chest suggesting atelectasis and/or infiltrate. There is a small amount of pleural fluid along the lateral margin of the right mid chest. Workstation ID: [id number] EXAMINATION: XR CHEST PA/AP HISTORY: ORDERING SYSTEM PROVIDED HISTORY: Chest tube/empyema, TECHNOLOGIST PROVIDED HISTORY: Illness/Other Reason for exam: Chest tube/empyema Cancer History: u Surgery, RadiationHistory: u Encounter Type: Ongoing Additional signs and symptoms: Chest tube/empyema ORDERING SYSTEM PROVIDED DIAGNOSIS CODES: J18.9 Parapneumonic effusion J91.8 Parapneumonic effusion COMPARISON: Portable chest radiograph dated 09/11/2024. TECHNIQUE: AP upright portable chest radiograph performed. FINDINGS: Stable pleural catheter with the distal tip along the medial aspect of the right lower chest. There is a persistent however smaller, small pneumothorax along the lateral margin of the right lower chest measuring 1.1 cm in transverse dimension. There is persistent patchy and dense consolidation within the right lower chest suggesting atelectasis and/or infiltrate. There is a small amount of pleural fluid along the lateral margin of the right mid chest. There is no pulmonary vascular congestion. There is a small calcified granuloma laterally within the left upper chest. There is no acute osseous abnormality. There is slight scoliosis. There are mild degenerative changes along the spine. There is calcific tendinitis distal aspect of the right supraspinatus tendon. GE RIS Tomás Messina MD - 09/12/2024 EXAMINATION: XR CHEST PA/AP HISTORY: ORDERING SYSTEM PROVIDED HISTORY: Chest tube/empyema, TECHNOLOGIST PROVIDED HISTORY: Illness/Other Reason for exam: Chest tube/empyema Cancer History: u Surgery, RadiationHistory: u Encounter Type: Ongoing Additional signs and symptoms: Chest tube/empyema ORDERING SYSTEM PROVIDED DIAGNOSIS CODES: J18.9 Parapneumonic effusion J91.8 Parapneumonic effusion COMPARISON: Portable chest radiograph dated 09/11/2024. TECHNIQUE: AP upright portable chest radiograph performed. FINDINGS: Stable pleural catheter with the distal tip along the medial aspect of the right lower chest. There is a persistent however smaller, small pneumothorax along the lateral margin of the right lower chest measuring 1.1 cm in transverse dimension. There is persistent patchy and dense consolidation within the right lower chest suggesting atelectasis and/or infiltrate. There is a small amount of pleural fluid along the lateral margin of the right mid chest. There is no pulmonary vascular congestion. There is a small calcified granuloma laterally within the left upper chest. There is no acute osseous abnormality. There is slight scoliosis. There are mild degenerative changes along the spine. There is calcific tendinitis distal aspect of the right supraspinatus tendon. IMPRESSION: Stable pleural catheter with the distal tip along the medial aspect of the right lower chest. There is a persistent however smaller, small pneumothorax along the lateral margin of the right lower chest measuring 1.1 cm in transverse dimension. There is persistent patchy and dense consolidation within the right lower chest suggesting atelectasis and/or infiltrate. There is a small amount of pleural fluid along the lateral margin of the right mid chest. Workstation ID: [id number] [facility] Radiology Study observation (narrative) [facility] XR Chest PA and Abdomen APOr dered By: Tomás Messina on 09-12-2024 [facility] Work Phone: BASIC METABOLIC PANELon 08-25 Anion gap [Moles/Vol] 11 mmol/L Normal 10-20 [facility] Comment on above: Order Comment: [facility] has implemented the eGFR calculation approach that does not have a coefficient for race that conforms to the NKF-ASN Task Force Recommendations. Performed By: #### 4 4090 #### LAB [address], [place] [address] Judah Dubose M.D. [id number] Calcium [Mass/Vol] 8.3 mg/dL Low 8.4-10.2 [facility] Comment on above: Order Comment: [facility] has implemented the eGFR calculation approach that does not have a coefficient for race that conforms to the NKF-ASN Task Force Recommendations. Performed By: #### 4 4090 #### LAB [address], [place] [address] Judah Dubose M.D. [id number] Chloride [Moles/Vol] 106 mmol/L Normal 98-108 [facility] Comment on above: Order Comment: [facility] has implemented the eGFR calculation approach that does not have a coefficient for race that conforms to the NKF-ASN Task Force Recommendations. Performed By: #### 4 4090 #### LAB [address], [place] [address] Judah Dubose M.D. [id number] Creatinine [Mass/Vol] 0.69 mg/dL Normal 0.40-1.10 [facility] Comment on above: Order Comment: [facility] has implemented the eGFR calculation approach that does not have a coefficient for race that conforms to the NKF-ASN Task Force Recommendations. Performed By: #### 4 4090 #### LAB [address], [place] [address] Judah Dubose M.D. [id number] EGFR 113 mL/min/1.73 m2 Normal >=60 [facility] Comment on above: Order Comment: [facility] has implemented the eGFR calculation approach that does not have a coefficient for race that conforms to the NKF-ASN Task Force Recommendations. Result Comment: Rhea mated GFR was calculated using the 2020 CKD-EPI creatinine equation. Performed By: #### 4 4090 #### LAB [address], [place] [address] Judah Dubose M.D. [id number] Glucose [Mass/Vol] 114 mg/dL High 65-99 [facility] Comment on above: Order Comment: [facility] has implemented the eGFR calculation approach that does not have a coefficient for race that conforms to the NKF-ASN Task Force Recommendations. Performed By: #### 4 4090 #### LAB [address], [place] [address] Judah Dubose M.D. [id number] HCO3 (Bld) [Moles/Vol] 26 mmol/L Normal 21-32 [facility] Comment on above: Order Comment: [facility] has implemented the eGFR calculation approach that does not have a coefficient for race that conforms to the NKF-ASN Task Force Recommendations. Performed By: #### 4 4090 #### LAB [address], [place] [address] Judah Dubose M.D. [id number] Potassium [Moles/Vol] 3.5 mmol/L Normal 3.5-5.1 [facility] Comment on above: Order Comment: [facility] has implemented the eGFR calculation approach that does not have a coefficient for race that conforms to the NKF-ASN Task Force Recommendations. Performed By: #### 4 4090 #### LAB [address] [address] Judah Dubose M.D. [id number] Sodium [Moles/Vol] 139 mmol/L Normal 135-145 [facility] Comment on above: Order Comment: [facility] has implemented the eGFR calculation approach that does not have a coefficient for race that conforms to the NKF-ASN Task Force Recommendations. Performed By: #### 4 4090 #### LAB [address] [address] Judah Dubose M.D. [id number] Urea nitrogen [Mass/Vol] 10 mg/dL Normal 8-25 [facility] Comment on above: Order Comment: [facility] has implemented the eGFR calculation approach that does not have a coefficient for race that conforms to the NKF-ASN Task Force Recommendations. Performed By: #### 4 4090 #### LAB [address] [address] Judah Dubose M.D. [id number] Urea nitrogen/Creatinine [Mass ratio] 14.5 mg/mg Normal 10.0-20.0 [facility] Comment on above: Order Comment: [facility] has implemented the eGFR calculation approach that does not have a coefficient for race that conforms to the NKF-ASN Task Force Recommendations. Performed By: #### 4 4090 #### LAB [address], [place] [address] Judah Dubose M.D. [id number] Basic metabolic 2000 panelon 09-11-2024 Anion gap [Moles/Vol] 11 mmol/L 10 - 20 mmol/L [facility] Calcium [Mass/Vol] 8.3 mg/dL Low 8.4 - 10. 2 mg/dL [facility] Chloride [Moles/Vol] 106 mmol/L 98 - 10 8 mmol/L [facility] Creatinine [Mass/Vol] 0.69 mg/dL 0.40 - 1.10 mg/dL [facility] GFR/1.73 sq M.predicted CKD-EPI (S/P/Bld) [Vol rate/Area] 113 - PINF [facility] Comment on above: Estimated GFR was ca lculated using the 2020 CKD-EPI creatinine equation. Glucose [Mass/Vol] 114 mg/dL High 65 - 99 mg/dL [facility] HCO3 [Moles/Vol] 26 mmol/L 21 - 32 mmol/L [facility] Interpretation and review of laboratory results Abnormal [facility] Potassium [Moles/Vol] 3.5 mmol/L 3.5 - 5.1 mmol/L [facility] Sodium [Moles/Vol] 139 mmol/L 135 - 145 mmol/L [facility] Urea nitrogen [Mass/Vol] 10 mg/dL 8 - 25 mg/dL [facility] Urea nitrogen/Creatinine [Mass ratio] 14.5 mg/mg 10.0 - 20.0 [facility] has implemented the eGFR calculation approach that does not have a coefficient for race that conforms to the NKF-ASN Task Force Recommendations. [facility] CBCon 09-11-2024 AUTO NRBC 0.0 % Normal [facility] Comment on above: Performed By: #### 4 4090 #### LAB [address], [place] [address] Judah Dubose M.D. [id number] AUTO NRBC ABS COUNT 0.00 K/mcL Normal 0.00-0.00 [facility] Comment on above: Performed By: #### 4 4090 #### LAB [address] [address] Judah Dubose M.D. [id number] Erythrocyte distribution width (RBC) [Ratio] 12.6 % Normal 11.6-14.8 [facility] Comment on above: Performed By: #### 4 4090 #### LAB [address] [address] Judah Dubose M.D. [id number] Hematocrit (Bld) [Volume fraction] 37.3 % Normal 36.0-46.0 [facility] Comment on above: Performed By: #### 4 4090 #### LAB [address] [address] Judah Dubose M.D. [id number] Hemoglobin (Bld) [Mass/Vol] 12.2 g/dL Normal 12.0-16.0 [facility] Comment on above: Performed By: #### 4 4090 #### LAB [address] [address] Judah Dubose M.D. [id number] MCH (RBC) [Entitic mass] 29.2 pg Normal 26.0-34.0 [facility] Comment on above: Performed By: #### 4 4090 #### LAB [address] [address] Judah Dubose M.D. [id number] MCV (RBC) [Entitic vol] 89.2 fL Normal 80.0-100.0 [facility] Comment on above: Performed By: #### 4 4090 #### LAB [address] [address] Judah Dubose M.D. [id number] MEAN CORPUSCULAR HEMOGLOBIN CONC 32.7 g/dL Normal 31.0-37.0 [facility] Comment on above: Performed By: #### 4 4090 #### LAB [address] [address] Judah Dubose M.D. [id number] Platelet mean volume (Bld) [Entitic vol] 9.0 fL Low 9.4-12.4 [facility] Comment on above: Performed By: #### 4 4090 #### LAB [address] [place], [place] [address] Judah Dubose M.D. [id number] Platelets (Bld) [#/Vol] 446 10*3/uL High 150-400 [facility] Comment on above: Performed By: #### 4 4090 #### LAB [address] [address] Judah Dubose M.D. [id number] RBC (Bld) [#/Vol] 4.18 10*6/uL Normal 4.00-5.20 [facility] Comment on above: Performed By: #### 4 4090 #### LAB [address] [place], [place] [address] Judah Dubose M.D. [id number] WBC (Bld) [#/Vol] 15.97 10*3/uL High 4.50-11.00 [facility] Comment on above: Performed By: #### 4 4090 #### LAB [address] [address] Judah Dubose M.D. [id number] CBC panel Auto (Bld)on 09-11 Erythrocyte distribution width (RBC) [Entitic vol] 12.6 % 11.6 - 14.8 % [facility] Hematocrit (Bld) [Volume fraction] 37.3 % 36.0 - 46.0 % [facility] Hemoglobin (Bld) [Mass/Vol] 12.2 g/dL 12.0 - 16.0 g/dL [facility] Interpretation and review of laboratory results Abnormal [facility] MCH (RBC) [Entitic mass] 29.2 pg 26.0 - 34.0 pg [facility] MCHC (RBC) [Mass/Vol] 32.7 g/dL 31.0 - 37.0 g/dL [facility] MCV (RBC) [Entitic vol] 89.2 fL 80.0 - 100.0 fL [facility] Nucleated RBC (Bld) [#/Vol] 0 10*3/uL [facility] Nucleated RBC/100 WBC (Bld) [Ratio] 0 % [facility] Platelet mean volume (Bld) [Entitic vol] 9 fL Low 9.4 - 12.4 fL [facility] Platelets (Bld) [#/Vol] 446 10*3/uL High [facility] RBC (Bld) [#/Vol] 4.18 10*6/uL [facility]alth WBC (Bld) [#/Vol] 15.97 10*3/uL [facility] XR CHEST PA/APon 09-11-2024 XR CHEST PA/AP EXAMINATION: XR CHEST PA/AP 09/11/2024 11:32 am HISTORY: ORDERING SYSTEM PROVIDED HISTORY: Chest tube, TECHNOLOGIST PROVIDED HISTORY: Illness/Other Reason for exam: chest tube f/u Cancer History: u Surgery, RadiationHistory: u Encounter Type: Subsequent/Follow-up Additional signs and symptoms: n ORDERING SYSTEM PROVIDED DIAGNOSIS CODES: J18.9 Parapneumonic effusion J91.8 Parapneumonic effusion COMPARISON: 09/10/2024 FINDINGS: Portable AP upright IMPRESSION: Chest tube which appears to be in the right lower chest. Stable heart and mediastinum. Slightly improved right basilar opacity. Slightly increased or new mild left basilar opacity. Right lateral pneumothorax is decreased, now with 1.5 cm pleural separation previously 3 cm. Continued fluid at the right costophrenic sulcus. Workstation ID: [id number] Dictated by: ADRIAN GERBER I on MonSep 11, 2024 11:54:24 AM EDT Transcribed by: ADRIAN GERBER I on MonSep 11, 2024 11:54:24 AM EDT Finalized by: ADRIAN GERBER I on MonSep 11, 2024 11:54:24 AM EDT [facility] Comment on above: Order Comment: Injur y/Trauma or Illness?:Illness/Other How long have you had these symptoms (acute/chronic)?:Acute Reason for exam?:chest tube f/u History of cancer?:u Surgeries, chemotherapy, or radiation?:u Type of Exam?:Subsequent/Follow-up Additional signs and symptoms?:n XR Chest PA and Abdomen APon 09-11-2024 Chest tube which appears to be in the right lower chest. Stable heart and mediastinum. Slightly improved right basilar opacity. Slightly increased or new mild left basilar opacity. Right lateral pneumothorax is decreased, now with 1.5 cm pleural separation previously 3 cm. Continued fluid at the right costophrenic sulcus. Workstation ID: [id number] GE RIS EXAMINATION: XR CHEST PA/AP 09/11/2024 11:32 am HISTORY: ORDERING SYSTEM PROVIDED HISTORY: Chest tube, TECHNOLOGIST PROVIDED HISTORY: Illness/Other Reason for exam: chest tube f/u Cancer History: u Surgery, RadiationHistory: u Encounter Type: Subsequent/Follow-up Additional signs and symptoms: n ORDERING SYSTEM PROVIDED DIAGNOSIS CODES: J18.9 Parapneumonic effusion J91.8 Parapneumonic effusion COMPARISON: 09/10/2024 FINDINGS: Portable AP upright GE RIS Adrian Gerber MD - 09/11/2024 EXAMINATION: XR CHEST PA/AP 09/11/2024 11:32 am HISTORY: ORDERING SYSTEM PROVIDED HISTORY: Chest tube, TECHNOLOGIST PROVIDED HISTORY: Illness/Other Reason for exam: chest tube f/u Cancer History: u Surgery, RadiationHistory: u Encounter Type: Subsequent/Follow-up Additional signs and symptoms: n ORDERING SYSTEM PROVIDED DIAGNOSIS CODES: J18.9 Parapneumonic effusion J91.8 Parapneumonic effusion COMPARISON: 09/10/2024 FINDINGS: Portable AP upright IMPRESSION: Chest tube which appears to be in the right lower chest. Stable heart and mediastinum. Slightly improved right basilar opacity. Slightly increased or new mild left basilar opacity. Right lateral pneumothorax is decreased, now with 1.5 cm pleural separation previously 3 cm. Continued fluid at the right costophrenic sulcus. Workstation ID: [id number] [facility] Radiology Study observation (narrative) [facility] XR Chest PA and Abdomen APOr dered By: Adrian Gerber on 09-11-2024 [facility] Work Phone: BASIC METABOLIC PANELon 08-25 Anion gap [Moles/Vol] 10 mmol/L Normal 10-20 [facility] Comment on above: Order Comment: Injur y/Trauma or Illness?:Illness/Other How long have you had these symptoms (acute/chronic)?:Acute Reason for exam?:Chest tube/empyema History of cancer?:u Surgeries, chemotherapy, or radiation?:u Type of Exam?:Ongoing Additional signs and symptoms?:Chest tube/empyema Performed By: #### [id number] #### LAB [address] [address] Judah Dubose M.D. [id number] Calcium [Mass/Vol] 8.1 mg/dL Low 8.4-10.2 [facility] Comment on above: Order Comment: Injur y/Trauma or Illness?:Illness/Other How long have you had these symptoms (acute/chronic)?:Acute Reason for exam?:Chest tube/empyema History of cancer?:u Surgeries, chemotherapy, or radiation?:u Type of Exam?:Ongoing Additional signs and symptoms?:Chest tube/empyema Performed By: #### 4 6124 #### [address] [place] [address] Judah Dubose M.D. [id number] Chloride [Moles/Vol] 110 mmol/L High 98-108 [facility] Comment on above: Order Comment: Injur y/Trauma or Illness?:Illness/Other How long have you had these symptoms (acute/chronic)?:Acute Reason for exam?:Chest tube/empyema History of cancer?:u Surgeries, chemotherapy, or radiation?:u Type of Exam?:Ongoing Additional signs and symptoms?:Chest tube/empyema Performed By: #### 4 6124 #### [address] [place] [address] Judah Dubose M.D. [id number] Creatinine [Mass/Vol] 0.70 mg/dL Normal 0.40-1.10 [facility] Comment on above: Order Comment: Injur y/Trauma or Illness?:Illness/Other How long have you had these symptoms (acute/chronic)?:Acute Reason for exam?:Chest tube/empyema History of cancer?:u Surgeries, chemotherapy, or radiation?:u Type of Exam?:Ongoing Additional signs and symptoms?:Chest tube/empyema Performed By: #### 4 6198 #### [facility] [address] [place] [address] Judah Dubose M.D. [id number] EGFR 113 mL/min/1.73 m2 Normal >=60 [facility] Comment on above: Order Comment: Injur y/Trauma or Illness?:Illness/Other How long have you had these symptoms (acute/chronic)?:Acute Reason for exam?:Chest tube/empyema History of cancer?:u Surgeries, chemotherapy, or radiation?:u Type of Exam?:Ongoing Additional signs and symptoms?:Chest tube/empyema Result Comment: Rhea mated GFR was calculated using the 2020 CKD-EPI creatinine equation. Performed By: #### 4 6139 #### [facility] [address] [place] [address] Judah Dubose M.D. [id number] Glucose [Mass/Vol] 129 mg/dL High 65-99 [facility] Comment on above: Order Comment: Injur y/Trauma or Illness?:Illness/Other How long have you had these symptoms (acute/chronic)?:Acute Reason for exam?:Chest tube/empyema History of cancer?:u Surgeries, chemotherapy, or radiation?:u Type of Exam?:Ongoing Additional signs and symptoms?:Chest tube/empyema Performed By: #### 4 6124 #### [facility] [address] [place] [address] Judah Dubose M.D. [id number] HCO3 (Bld) [Moles/Vol] 26 mmol/L Normal 21-32 [facility] Comment on above: Order Comment: Injur y/Trauma or Illness?:Illness/Other How long have you had these symptoms (acute/chronic)?:Acute Reason for exam?:Chest tube/empyema History of cancer?:u Surgeries, chemotherapy, or radiation?:u Type of Exam?:Ongoing Additional signs and symptoms?:Chest tube/empyema Performed By: #### 4 6124 #### [address] [place], [place] [address] Judah Dubose M.D. [id number] Potassium [Moles/Vol] 3.4 mmol/L Low 3.5-5.1 [facility] Comment on above: Order Comment: Injur y/Trauma or Illness?:Illness/Other How long have you had these symptoms (acute/chronic)?:Acute Reason for exam?:Chest tube/empyema History of cancer?:u Surgeries, chemotherapy, or radiation?:u Type of Exam?:Ongoing Additional signs and symptoms?:Chest tube/empyema Performed By: #### 4 6160 #### [facility] [address] [place] [address] Judah Dubose M.D. [id number] Sodium [Moles/Vol] 143 mmol/L Normal 135-145 [facility] Comment on above: Order Comment: Injur y/Trauma or Illness?:Illness/Other How long have you had these symptoms (acute/chronic)?:Acute Reason for exam?:Chest tube/empyema History of cancer?:u Surgeries, chemotherapy, or radiation?:u Type of Exam?:Ongoing Additional signs and symptoms?:Chest tube/empyema Performed By: #### 4 6124 #### [facility] [address] [place] [address] Judah Dubose M.D. [id number] Urea nitrogen [Mass/Vol] 14 mg/dL Normal 8-25 [facility] Comment on above: Order Comment: Injur y/Trauma or Illness?:Illness/Other How long have you had these symptoms (acute/chronic)?:Acute Reason for exam?:Chest tube/empyema History of cancer?:u Surgeries, chemotherapy, or radiation?:u Type of Exam?:Ongoing Additional signs and symptoms?:Chest tube/empyema Performed By: #### 4 6124 #### [facility] [address] [place] [address] Judah Dubose M.D. [id number] Urea nitrogen/Creatinine [Mass ratio] 20.0 mg/mg Normal 10.0-20.0 [facility] Comment on above: Order Comment: Injur y/Trauma or Illness?:Illness/Other How long have you had these symptoms (acute/chronic)?:Acute Reason for exam?:Chest tube/empyema History of cancer?:u Surgeries, chemotherapy, or radiation?:u Type of Exam?:Ongoing Additional signs and symptoms?:Chest tube/empyema Performed By: #### 4 6124 #### [facility] [address] [place] [address] Judah Dubose M.D. [id number] Basic metabolic 2000 panelon 09-10-2024 Anion gap [Moles/Vol] 10 mmol/L 10 - 20 mmol/L [facility] Calcium [Mass/Vol] 8.1 mg/dL Low 8.4 - 10. 2 mg/dL [facility] Chloride [Moles/Vol] 110 mmol/L High 98 - 10 8 mmol/L [facility] Creatinine [Mass/Vol] 0.7 mg/dL 0.40 - 1.10 mg/dL [facility] GFR/1.73 sq M.predicted CKD-EPI (S/P/Bld) [Vol rate/Area] 113 - PINF [facility] Comment on above: Estimated GFR was ca lculated using the 2020 CKD-EPI creatinine equation. Glucose [Mass/Vol] 129 mg/dL High 65 - 99 mg/dL [facility] HCO3 [Moles/Vol] 26 mmol/L 21 - 32 mmol/L [facility] Interpretation and review of laboratory results Abnormal [facility] Potassium [Moles/Vol] 3.4 mmol/L Low 3.5 - 5.1 mmol/L [facility] Sodium [Moles/Vol] 143 mmol/L 135 - 145 mmol/L [facility] Urea nitrogen [Mass/Vol] 14 mg/dL 8 - 25 mg/dL [facility] Urea nitrogen/Creatinine [Mass ratio] 20 mg/mg 10.0 - 20.0 [facility] has implemented the eGFR calculation approach that does not have a coefficient for race that conforms to the NKF-ASN Task Force Recommendations. [facility] CBC Auto Differentialon 08-25 Basophils (Bld) [#/Vol] 0.03 10*3/uL [facility] Basophils/100 WBC (Bld) 0.2 % [facility] Eosinophils (Bld) [#/Vol] 0.04 10*3/uL [facility] Eosinophils/100 WBC (Bld) 0.3 % [facility] Erythrocyte distribution width (RBC) [Entitic vol] 12.6 % 11.6 - 14.8 % [facility] Hematocrit (Bld) [Volume fraction] 37.5 % 36.0 - 46.0 % [facility] Hemoglobin (Bld) [Mass/Vol] 12 g/dL 12.0 - 16.0 g/dL [facility] Immature granulocytes (Bld) [#/Vol] 0.14 10*3/uL [facility] Immature granulocytes/100 WBC (Bld) 0.9 % [facility] Comment on above: The IG parameter is the percentage of metamyelocytes, myelocytes and promyelocytes. An immature granulocyte count (IG) of 1% or more suggests the possibility of infection, an IG count of 3% is very likely related to an infection. Interpretation and review of laboratory results Abnormal [facility] Lymphocytes (Bld) [#/Vol] 2.29 10*3/uL [facility] Lymphocytes/100 WBC (Bld) 14.8 % [facility] MCH (RBC) [Entitic mass] 29 pg 26.0 - 34.0 pg [facility] MCHC (RBC) [Mass/Vol] 32 g/dL 31.0 - 37.0 g/dL [facility] MCV (RBC) [Entitic vol] 90.6 fL 80.0 - 100.0 fL [facility] Monocytes (Bld) [#/Vol] 0.95 10*3/uL High [facility] Monocytes/100 WBC (Bld) 6.1 % [facility] Neutrophils (Bld) [#/Vol] 12.05 10*3/uL High [facility] Neutrophils/100 WBC (Bld) 77.7 % [facility] Nucleated RBC (Bld) [#/Vol] 0 10*3/uL [facility] Nucleated RBC/100 WBC (Bld) [Ratio] 0 % [facility] Platelet mean volume (Bld) [Entitic vol] 9.1 fL Low 9.4 - 12.4 fL [facility] Platelets (Bld) [#/Vol] 439 10*3/uL [facility] RBC (Bld) [#/Vol] 4.14 10*6/uL [facility] WBC (Bld) [#/Vol] 15.5 10*3/uL High [facility] CBC WITH AUTO DIFFERENTIALon 09-10-2024 AUTO NRBC 0.0 % Normal [facility] Comment on above: Performed By: #### 4 0826 #### [facility] [address] [place] [address] Eliazar Franks M.D. [id number] AUTO NRBC ABS COUNT 0.00 K/mcL Normal 0.00-0.00 [facility] Comment on above: Performed By: #### 4 3216 #### [facility] [address] [place] [address] Eliazar Franks M.D. [id number] BASOPHILS ABSOLUTE COUNT 0.03 K/mcL Normal 0.00-0.30 [facility] Comment on above: Performed By: #### 4 4016 #### [facility] [address] [place], [place] [id number] Eliazar Franks M.D. [id number] Basophils/100 WBC (Bld) 0.2 % Normal [facility] Comment on above: Performed By: #### 4 [id number] #### [facility] [address] [place] [address] Eliazar Franks M.D. [id number] Eosinophils (Bld) [#/Vol] 0.04 10*3/uL Normal 0.00-0.50 [facility] Comment on above: Performed By: #### 4 [id number] #### [facility] [address] [place] [address] Eliazar Franks M.D. [id number] Eosinophils/100 WBC (Bld) 0.3 % Normal [facility] Comment on above: Performed By: #### 4 4016 #### [facility] [address] [place], [place] [id number] Eliazar Franks M.D. [id number] Erythrocyte distribution width (RBC) [Ratio] 12.6 % Normal 11.6-14.8 [facility] Comment on above: Performed By: #### 4 [id number] #### [facility] [address] [place], [place] [address] Eliazar Franks M.D. [id number] Hematocrit (Bld) [Volume fraction] 37.5 % Normal 36.0-46.0 [facility] Comment on above: Performed By: #### 4 4016 #### [facility] [address] [place] [address] Eliazar Franks M.D. [id number] Hemoglobin (Bld) [Mass/Vol] 12.0 g/dL Normal 12.0-16.0 [facility] Comment on above: Performed By: #### 4 [id number] #### [facility] [address] [place] [address] Eliazar Franks M.D. [id number] IG ABSOLUTE 0.14 K/mcL Normal 0.00-0.30 [facility] Comment on above: Performed By: #### 4 [id number] #### [facility] [address] [place] [address] Eliazar Franks M.D. [id number] IG PERCENT 0.90 % Normal [facility] Comment on above: Result Comment: The IG parameter is the percentage of metamyelocytes, myelocytes and promyelocytes. An immature granulocyte count (IG) of 1% or more suggests the possibility of infection, an IG count of 3% is very likely related to an infection. Performed By: #### 4 [id number] #### [facility] [address] [place] [address] Eliazar Franks M.D. [id number] Lymphocytes (Bld) [#/Vol] 2.29 10*3/uL Normal 0.90-4.00 [facility] Comment on above: Performed By: #### 4 4016 #### [facility] [address] [place] [address] Eliazar Franks M.D. [id number] Lymphocytes/100 WBC (Bld) 14.8 % Normal [facility] Comment on above: Performed By: #### 4 [id number] #### [facility] [address] [place] [address] Eliazar Franks M.D. [id number] MCH (RBC) [Entitic mass] 29.0 pg Normal 26.0-34.0 [facility] Comment on above: Performed By: #### 4 [id number] #### [facility] [address] [place] [address] Eliazar Franks M.D. [id number] MCV (RBC) [Entitic vol] 90.6 fL Normal 80.0-100.0 [facility] Comment on above: Performed By: #### 4 [id number] #### [facility] [address] [place] [address] Eliazar Franks M.D. [id number] MEAN CORPUSCULAR HEMOGLOBIN CONC 32.0 g/dL Normal 31.0-37.0 [facility] Comment on above: Performed By: #### 4 4016 #### [facility] [address] [place] [address] Eliazar Franks M.D. [id number] Monocytes (Bld) [#/Vol] 0.95 10*3/uL High 0.30-0.90 [facility] Comment on above: Performed By: #### 4 4016 #### [facility] [address] [place] [address] Eliazar Franks M.D. [id number] Monocytes/100 WBC (Bld) 6.1 % Normal [facility] Comment on above: Performed By: #### 4 4016 #### [facility] [address] [place], [place] [address] Eliazar Franks M.D. [id number] NEUTROPHILS ABSOLUTE COUNT 12.05 K/mcL High 1.70-7.00 [facility] Comment on above: Performed By: #### 4 4016 #### [facility] [address] [place], [place] [address] Eliazar Franks M.D. [id number] Neutrophils/100 WBC (Bld) 77.7 % Normal [facility] Comment on above: Performed By: #### 4 [id number] #### [facility] [address] [place], [place] [address] Eliazar Franks M.D. [id number] Platelet mean volume (Bld) [Entitic vol] 9.1 fL Low 9.4-12.4 [facility] Comment on above: Performed By: #### 4 4016 #### [facility] [place], [place] [address] Eliazar Franks M.D. [id number] Platelets (Bld) [#/Vol] 439 10*3/uL High 150-400 [facility] Comment on above: Performed By: #### 4 4016 #### [facility] [address] [place] [address] Eliazar Franks M.D. [id number] RBC (Bld) [#/Vol] 4.14 10*6/uL Normal 4.00-5.20 [facility] Comment on above: Performed By: #### 4 4016 #### [facility] [address] [place] [address] Eliazar Franks M.D. [id number] WBC (Bld) [#/Vol] 15.50 10*3/uL High 4.50-11.00 [facility] Comment on above: Performed By: #### 4 4016 #### [facility] [address] [place] [address] Eliazar Franks M.D. [id number] CV IR CHEST TUBE INSERTION R [facility] 09-10-2024 CV IR CHEST TUBE INSERTION RIGHT IMPRESSION: Image guided right chest tube placement (24 [place]ian Thal quick) PROCEDURE: INTRAVENOUS MODERATE SEDATION AND MONITORING. IMAGE GUIDED PLACEMENT OF RIGHT CHEST TUBE PHYSICIAN: Deanna Valdes D.O. [facility] [facility] [address], [place] [id number] (O) [phone] (F) [phone] ANESTHESIA: Intravenous moderate sedation with continuous physiological monitoring was performed utilizing Versed and Fentanyl with personal physician and RN supervision starting at 915 and ending at 935. Continuous noninvasive cardiopulmonary and oxygen saturation monitoring demonstrated stable vital signs throughout the procedure with no evidence of complication. COMPARISON: CT chest 09/09/2024, chest x-ray same day COMPLICATIONS: None. ESTIMATED BLOOD LOSS: Trace. CONTRAST AGENT: NONE RADIATION DOSE: 1.97 mGy FLUOROSCOPY TIME: 0.1 minutes CLINICAL INFORMATION: Loculated right pleural effusion PROCEDURE: The risks, benefits and alternatives were explained to the patient/family/HPOA. Informed consent was obtained. Dose reduction techniques were achieved by using automated exposure control and/or adjustment of mA and/or kV according to patient size and/or use of iterative reconstruction technique. Image guided right chest tube placement Ultrasound showed the complex collection surrounding the right lung posteriorly with locules of air and internal echogenicity. No significant change from the comparison imaging, given technique differences. Skin and subcutaneous tissues were anesthetized at the intended access site. A small skin alexandra was made at this location for needle entry. Then under ultrasound guidance, 18 gauge Chiba was advanced directly into the right pleural effusion was seen to be in good position and light red tinged fluid debris was aspirated. Ultrasound images demonstrate good position of the needle tip. Then under CT guidance, a superstiff Amplatz wire was coiled within the collection and serial dilatation was performed over the wire to advance a 24 Tunisian without quick catheter into the abscess cavity and confirmed to be in appropriate position on post placement fluoroscopic images. Catheter was sutured in place with 0 Prolene pursestring suture, sterile dressings were placed and the catheter was connected to a pleur-evac system. Workstation ID: [id number] Dictated by: DEANNA VALDES on MonSep 10, 2024 12:36:48 PM EDT Transcribed by: DEANNA VALDES on MonSep 10, 2024 12:36:48 PM EDT Finalized by: DEANNA VALDES on MonSep 10, 2024 12:36:48 PM EDT Normal [facility] INR Coag (PPP) [Relative vilma e]on 09-10-2024 Interpretation and review of laboratory results Abnormal [facility] PT Coag (PPP) [Time] 16.6 s High [facility] During the induction phase of oral anticoagulation, the INR may not reflect the anticoagulation status of the patient. Therapeutic ranges for INR's are: Most clinical situations: INR 2.0-3.0 Mechanical Prosthetic Valve: INR 2.5-3.5 Critical: INR >5.0 [facility] CytologyOrdered By: Gregory Garcia on 09-10-2024 Case Report Medical Cytology Report Case: [id number] Authorizing Provider: Chandu Mathew MD Collected: 09/08/2024 12:53 PM Ordering Location: [facility] Medical Received: 09/09/2024 08:27 AM Observation Pathologist: Jack Garcia DO Specimen: Pleural, Right [facility] Work Phone: Clinical information [id number] mbG QpDfWdXdClOwOrVar3YODg qpR1Qhx7FGLlOKwxiJ2yHY XwRNxbE6itbcLufGNlSLOv STr1eJ0qfBlnuL8xImQiZu FwLTMOfPKaQIQ8UJPvOP1a eWVtYVxwYXIgfQ== [employer] Work Phone: Interpretation Specimen A Negative for malignant cells Acute inflammation [facility] Work Phone: Pathology report gross observation Narrative [id number] dvcjWuUTCmyOSgZ3Xjjqvp NMqvJY7sSJ4ykXyeqALmzC OwWGNpCyShj0ppw153bHPp d5iyFBTAsjjdxNm5lMjlM6 9ap9C8RtpsF70cuBJxZAP6 YPNkWSThlFLqWEIdPKJ5XJ UcyUJfK4hoDHIeQP0oleav OHsiNGqbPEUfkGN4CMSzgE ZeU1LkVRBqSHaxWSZcxjr4 WzNsWa1qaDSkpGniZXprSF JkXHBsYWluXGZzMjBccHJv cXRhuIvaNlbnmZN2FZseAc kbeW2qhRAUDYZGVunNMcyy jdPxDL5VAZDYZfAUHM28NI fpWfH2MTxkqLtdGjhtvoFi aIJkJyKvfI5Xu3cqnDKxZW xxPbrziFPonyJ6XZnRDLIR EBjCGhNwMF4jJXuUB0TRRx T7YScdHuI8GCreqLbnTxsv xsRtrJOgIsEtvV2cvFwmeX 7iRmYgCNGwOVFjC1NohhGm VNtxsp63NKI3g6vanQOaHQ lyNhwoaGUrjaP3WHdIXKGK KAwXSgCyES7oLPsAY3NAAR wOZnkzYXB9FLsihZZ6o5bc kADpb4q5PYrsBDT5rAJtKC Yvf0ezkVGbVPwlErnlkBYq xuC4MMmBZSLLIDhOBuYzWV 8aSEjWB0QYRgF3BrTySZX0 MnwyfXtcZmxkcnNsdCBcJz QvxY1poZbwhD8rYdNvQDPd EIVnb5dyecR4HTSoVlQwVJ NwKSszXy7Go4Q7FXSmiRre ZrtwRSFbVWBdRM1MRL5rPE OfFgQiSKTiyF0lCRYpVE55 S52hWKCvaMMnJIufew14FE H9q5ehwXKsOSlkKfvfhWNu ydO7JBeAVEVKIMbTRnKzIZ 8vGKyXP2XWFWhXPuq4UMSb YCiiqUO8d6oqqRLoh0i1XP uiIMZ4rY32WIMnFXnyc7wy WGPqHTwop6QnDVqOWWZVGT 4QBF5rkDF6RYiTIRUSTUc3 WXHxKXgwbGC0z2bqfECcb7 l0RLgoVYL5cMvziCPxypvu ojSxOCJzTYXpm4EnG8A5UD AoHHidf3usZOEdNEcgy6Ok VNjBAGOZNG9FVM5ucED5VA oQVVUPJ3vDfMP7LBO0fML5 TQ58VMAoTZHorIRtJAnbM5 18FOXtvNGAXXXvSSjcxv99 UCX0OYctLerevDG6GBaiIq bzsK3zbPDENEROJrmRFvly jqBiOY8FHMbKJtHDZQ17PQ 18MWLaBIZhhTOaPZawX222 QOcwDhtgiUF9YPfwSyevlT 5zdCBIWVBFUkxJTksgbmFt AW7LWKzWPK2RlIV0z8liwS Lqz8k9WDlyIBR2vDvueHDy ehwyrf78AXY5GOEeZgUdGJ Psxj7gqbfrSKGXdQEnq4Je biBzbGlkZShzKSBEaWZmLV K3rYbtc9VubF5eBOycMMVe t7AuX0Wbx1nbrRVpKZkoEx qevZPkwgK0EHeENZBBMOwH AcNrCU5hDFgFRUOGHZsJDr z1mBfcQkwualJjdSYoUcDd cF5uc8gruMSgJJfpHkgvgC LckoD6AXiHBFFPSNbSKnCw RI1fMLtKXQUFYbR5Uw73IO TeXQOeoZFhAFssR245QXYo MFcjMGYoz9XbG8QgNbJaQD HmQOplPXKlpANdQLO5vQ5u cGluIHNsaWRlKHMpIFBhcC BzdGFpbmVkLCBccHJvdGVj bJP8JEEaYVrus3spGUQtKY ngf3AtIMfJXTLEQQ4QUG0s xNQ1Q7dTLZOXB7gQrNb6s5 qlwDRil9r8WCezSLZ5rJB6 DHAyOLosg2dmBNDwQTpgk9 SuFHkENGVZNG7YAB7mxLI2 R7qNYXUFNMd3lQdyOmyoml JikQQfKcSlpV6mwIinpC3z cHJvdGVjdFxmczIwICBjZW piLZHqz7DtNWZww4qfdUFc WDttExxgrFHdyqB7APaHEN KZEZhWEuQqFB5pPFmYJ3JA KjR4UlH8PFW6RRy4uSqcOs kdzxGqgVLcZbFimG3nnUhe hN6lPpIbEUYqzXTsdGArXB IuXFAqatm3gEjyQWMiwEhw IFNwZWNpbWVuIGNvbGxlY3 Xry95xyShiWMluEZTaLdVj FVLwZc0pZP8kFMM3KYMofr HOuN5hLWUzzSzgZmccH8rm pQokB1EmZCexMSJeMATnWE A4gbFqLRL6OrShpoStHQOu jy7uvIfoIlGkHBk7TCOtJP G6SpA6AyIbWpMcqQYtUICb pDFnS5JhyYIjaZ5qxbGzNO 7ituKuLBLuc94wZf3ktOQy rQ39IADvnPEjkQWvuRfpWx rzjBD8FWzwQogqkY5bwAAM WMBCUxfQFzeaomTbSE2SPI QZGqDINK09WVR8MVX3RYa8 fXtcZmxkcnNsdCBcJzFjfX 5yQTy9ZKYexZ4tYdSxgF0w u5eomKHtREfaLanitTKlwp B7VGaWARIUMHoAAeDxAK0z TFiMO7MGFgX9NZA4UBW7TI w5zMjxMukkjsYesNTsOvGr dC2stToliI7vZeRuLUPrUQ W0RjN4WxNyGkIacJCqZLLg amBJUNumRGJjJ6p2f9eeD0 kceCMwzPNlKBAxr05oNKUi l3Csi1GqUAOymOlcBOPwp3 SxRXjdQOtvb3WelYJuPI6e FrI2APlzTZSvvnBjPOW1CV 34GVOQCF6kExzzeFRiKS4K KBD9UBZnZOTbhxf0FIDBQN BZXEwZZW5UFDCGNACXAO0V OQwPUrT7JLGaDhqmVWLzXz AiIVF0Zo7kSuV2LXM9bIO1 SJ7mWRI6NJt3GSG2YcOpSm s7Fd20Fuf2XcKcHCW8iDg5 IMTDZFOKHMwTG7SrYXKLIG DZYRGwOT3OIOjGIDGKRDJH F64XJGIDMIMYT6NYV2qVAE VcezFcfTZcezFcfTdcezFX KFwSS1POIE0QVKRLYXOFOZ 9SPiXhZHdJZ2WXY7tEKTLr MISUKVGBZLRhGySOVV8aMO s0SIVwdRn3KBAcDai5Fgm2 GPQzhCDsrvPiNLm5QLY2Lt WdCJNbrIXex8ORI1x0l4Ka YMQikdo7SKGwAKh9BEt0GQ OemSPlcTCaZzxwNRD1BLe0 DFm5KlJsWFI5nXppZGE9DT E4YLLnqQSWLVNIEXkGDIVA Wu9XIWENRJWMBY0QZdUsA0 RSZK4WYi1HLTUVNKMKIJ6B XEkWFvTwD6NSIK3COg4SDP GUZMSSLI7YCqNlMRIHV0CH JbQQW0opXIAXCISRFASdAo VGFR6nVVUZTO3JOPOIZFJZ S40EYHDSDZHUQ3ASSG8= [facility] Work Phone: [facility] Work Phone: PT/INRon 09-10-2024 INR Coag (PPP) [Relative time] 1.3 {INR} High 0.8 - 1.1 [facility] INR Coag (PPP) [Relative time] 1.3 {INR} High 0.8-1.1 [facility] Comment on above: Order Comment: Jarad giraldo the induction phase of oral anticoagulation, the INR may not reflect the anticoagulation status of the patient. Therapeutic ranges for INR's are:Most clinical situations: INR 2.0-3.0Mechanical Prosthetic Valve: INR 2.5-3.5Critical: INR >5.0 Performed By: #### [id number] #### [facility] [address] [place], [place] [address] Judah Dubose M.D. [id number] PT Coag (PPP) [Time] 16.6 s High 11.8-14.3 [facility] Comment on above: Order Comment: Jarad giraldo the induction phase of oral anticoagulation, the INR may not reflect the anticoagulation status of the patient. Therapeutic ranges for INR's are:Most clinical situations: INR 2.0-3.0Mechanical Prosthetic Valve: INR 2.5-3.5Critical: INR >5.0 Performed By: #### [id number] #### [facility] [address] [place], [place] [address] Judah Dubose M.D. [id number] VR Chest Tube Righton 2024 Image guided right chest tube placement (24 [employer]) PROCEDURE: INTRAVENOUS MODERATE SEDATION AND MONITORING. IMAGE GUIDED PLACEMENT OF RIGHT CHEST TUBE PHYSICIAN: Deanna Valdes D.O. [facility], [address] [place] [address] (O) [phone] (F) [phone] ANESTHESIA: Intravenous moderate sedation with continuous physiological monitoring was performed utilizing Versed and Fentanyl with personal physician and RN supervision starting at 915 and ending at 935. Continuous noninvasive cardiopulmonary and oxygen saturation monitoring demonstrated stable vital signs throughout the procedure with no evidence of complication. COMPARISON: CT chest 09/09/2024, chest x-ray same day COMPLICATIONS: None. ESTIMATED BLOOD LOSS: Trace. CONTRAST AGENT: NONE RADIATION DOSE: 1.97 mGy FLUOROSCOPY TIME: 0.1 minutes CLINICAL INFORMATION: Loculated right pleural effusion PROCEDURE: The risks, benefits and alternatives were explained to the patient/family/HPOA. Informed consent was obtained. Dose reduction techniques were achieved by using automated exposure control and/or adjustment of mA and/or kV according to patient size and/or use of iterative reconstruction technique. Image guided right chest tube placement Ultrasound showed the complex collection surrounding the right lung posteriorly with locules of air and internal echogenicity. No significant change from the comparison imaging, given technique differences. Skin and subcutaneous tissues were anesthetized at the intended access site. A small skin alexandra was made at this location for needle entry. Then under ultrasound guidance, 18 gauge Chiba was advanced directly into the right pleural effusion was seen to be in good position and light red tinged fluid debris was aspirated. Ultrasound images demonstrate good position of the needle tip. Then under CT guidance, a superstiff Amplatz wire was coiled within the collection and serial dilatation was performed over the wire to advance a 24 Tunisian without quick catheter into the abscess cavity and confirmed to be in appropriate position on post placement fluoroscopic images. Catheter was sutured in place with 0 Prolene pursestring suture, sterile dressings were placed and the catheter was connected to a pleur-Couchbase system. Workstation ID: [id number] Jane Olson DO - 09/10/2024 IMPRESSION: Image guided right chest tube placement (24 Tunisian Thal quick) PROCEDURE: INTRAVENOUS MODERATE SEDATION AND MONITORING. IMAGE GUIDED PLACEMENT OF RIGHT CHEST TUBE PHYSICIAN: Deanna Valdes D.O. [facility] [address] [place] [address] (O) [phone] (F) [phone] ANESTHESIA: Intravenous moderate sedation with continuous physiological monitoring was performed utilizing Versed and Fentanyl with personal physician and RN supervision starting at 915 and ending at 935. Continuous noninvasive cardiopulmonary and oxygen saturation monitoring demonstrated stable vital signs throughout the procedure with no evidence of complication. COMPARISON: CT chest 09/09/2024, chest x-ray same day COMPLICATIONS: None. ESTIMATED BLOOD LOSS: Trace. CONTRAST AGENT: NONE RADIATION DOSE: 1.97 mGy FLUOROSCOPY TIME: 0.1 minutes CLINICAL INFORMATION: Loculated right pleural effusion PROCEDURE: The risks, benefits and alternatives were explained to the patient/family/HPOA. Informed consent was obtained. Dose reduction techniques were achieved by using automated exposure control and/or adjustment of mA and/or kV according to patient size and/or use of iterative reconstruction technique. Image guided right chest tube placement Ultrasound showed the complex collection surrounding the right lung posteriorly with locules of air and internal echogenicity. No significant change from the comparison imaging, given technique differences. Skin and subcutaneous tissues were anesthetized at the intended access site. A small skin alexandra was made at this location for needle entry. Then under ultrasound guidance, 18 gauge Chiba was advanced directly into the right pleural effusion was seen to be in good position and light red tinged fluid debris was aspirated. Ultrasound images demonstrate good position of the needle tip. Then under CT guidance, a superstiff Amplatz wire was coiled within the collection and serial dilatation was performed over the wire to advance a 24 Tunisian without quick catheter into the abscess cavity and confirmed to be in appropriate position on post placement fluoroscopic images. Catheter was sutured in place with 0 Prolene pursestring suture, sterile dressings were placed and the catheter was connected to a pleur-evac system. Workstation ID: [id number] [facility] Radiology Study observation (narrative) [facility] XR CHEST PA/APon 09-10-2024 XR CHEST PA/AP EXAMINATION: PORTABLE CHEST - 09/10/2024 COMPARISON: CT chest without IV contrast and chest radiograph examinations dated 09/09/2024. ADDITIONAL HISTORY: status post chest tube placement FINDINGS: Small-caliber pigtail drain previously seen overlying the inferolateral right chest is no longer seen. Larger-caliber drain overlies the right hemidiaphragm. Persistent inferolateral right hydropneumothorax, measuring 3.0 cm in width, previously measuring 3.0 cm. Dense consolidation and infiltrative changes in the right base again noted, unchanged. Mild dependent atelectasis in the left base again noted, also unchanged. Stable cardiomediastinal contours. Left costophrenic angle remains sharp. No suspicious osseous lesion. IMPRESSION: 1. New larger-caliber drain overlies the right hemidiaphragm. Persistent moderate-sized inferolateral right hydropneumothorax, not significantly changed. 2. Infiltrative changes/consolidation in the right base again noted, concerning for an area of ongoing pneumonia. 3. Mild dependent atelectasis in the left base, unchanged. No new process identified. DSS/ads Workstation ID: [id number] Dictated by: CHANG BLANCHARD on MonSep 10, 2024 3:58:00 PM EDT Transcribed by: SPENCER GANDHI on MonSep 10, 2024 4:09:59 PM EDT Finalized by: CHANG BLANCHARD on MonSep 10, 2024 5:12:39 PM EDT [facility] Comment on above: Order Comment: Injur y/Trauma or Illness?:Illness/OtherHow long have you had these symptoms (acute/chronic)?:AcuteReason for exam?:status post chest tube placementHistory of cancer?:uSurgeries, chemotherapy, or radiation?:uType of Exam?:Subsequent/Follow-upAdditional signs and symptoms?:N XR Chest PA and Abdomen APon 09-10-2024 1. New larger-caliber drain overlies the right hemidiaphragm. Persistent moderate-sized inferolateral right hydropneumothorax, not significantly changed. 2. Infiltrative changes/consolidation in the right base again noted, concerning for an area of ongoing pneumonia. 3. Mild dependent atelectasis in the left base, unchanged. No new process identified. [employer]/ads Workstation ID: [id number] Yunzhisheng EXAMINATION: PORTABLE CHEST - 09/10/2024 COMPARISON: CT chest without IV contrast and chest radiograph examinations dated 09/09/2024. ADDITIONAL HISTORY: status post chest tube placement FINDINGS: Small-caliber pigtail drain previously seen overlying the inferolateral right chest is no longer seen. Larger-caliber drain overlies the right hemidiaphragm. Persistent inferolateral right hydropneumothorax, measuring 3.0 cm in width, previously measuring 3.0 cm. Dense consolidation and infiltrative changes in the right base again noted, unchanged. Mild dependent atelectasis in the left base again noted, also unchanged. Stable cardiomediastinal contours. Left costophrenic angle remains sharp. No suspicious osseous lesion. Yunzhisheng Chang Blanchard MD - 09/10/2024 EXAMINATION: PORTABLE CHEST - 09/10/2024 COMPARISON: CT chest without IV contrast and chest radiograph examinations dated 09/09/2024. ADDITIONAL HISTORY: status post chest tube placement FINDINGS: Small-caliber pigtail drain previously seen overlying the inferolateral right chest is no longer seen. Larger-caliber drain overlies the right hemidiaphragm. Persistent inferolateral right hydropneumothorax, measuring 3.0 cm in width, previously measuring 3.0 cm. Dense consolidation and infiltrative changes in the right base again noted, unchanged. Mild dependent atelectasis in the left base again noted, also unchanged. Stable cardiomediastinal contours. Left costophrenic angle remains sharp. No suspicious osseous lesion. IMPRESSION: 1. New larger-caliber drain overlies the right hemidiaphragm. Persistent moderate-sized inferolateral right hydropneumothorax, not significantly changed. 2. Infiltrative changes/consolidation in the right base again noted, concerning for an area of ongoing pneumonia. 3. Mild dependent atelectasis in the left base, unchanged. No new process identified. DSS/ads Workstation ID: [id number] [facility] Radiology Study observation (narrative) [facility] XR Chest PA and Abdomen APOr dered By: Chang Blanchard on 09-10-2024 [facility] Work Phone: CONSULTon 09-09-2024 CONSULT Vascular & Interventional Radiology Provided By [facility] (Diagnostic Radiology, Interventional and Neurointerventional Radiology and Vascular Medicine) Interventional Radiology Department @ : [phone] 17/10 VIR physician contact: [phone]) Weekday VIR ARPITA contact @ [facility]: [phone] [facility]: [email or web address] [facility] The consult was reviewed. The patient's chart was reviewed. The patient's H&P was reviewed. Gricel Patel is a 38 y.o. 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 Sepsis, POA Right lung loculated effusion Right lower lobe pneumonia Severe pleuritic pain Atelectasis Leukocytosis WBC-19.96 CT CAP reviewed-modest rind of nonspecific right pleural fluid, internal complexity noted, seems loculated. Associated atelectasis of right middle and lower lobe. Sputum Cx-p Blood Cx-p Body fluid Cx- no growth Etiology unclear but probably dental, she needs couple teeth extracted. Ceftriaxone and Flagyl for anaerobic coverage. No association with healthcare institution, no need for MRSA coverage at this time. IV Toradol and steroids for pleuritic pain. Continue IV Hydration Pulmonary consult. Discussed with Dr. Schofield. IR consult S/p Chest tube placement 09/08/24 Pain management CM Incentive Spirometry Nicotine dependence Smokes a pack per day and vapes. Patient does not want any patch at this time. Smoking cessation Obesity -BMI 34.12 CT chest personally reviewed with the appearance of chest tube outside of the pleural space and PTX ex vacuo. Removed chest tube at end expiration, covered site with vaseline gauze, sterile 4X4 and secured with silk tape. Discussed with patient and IR about requiring new chest tube. IR consult placed. VIR consulted for a new chest tube placement (please see above)- I will find out if she has been NPO. INR ordered. Per pulmonary- it needs to be done today. The patient will be scheduled for the requested chest tube placement procedure. Procedure date and time TBD by the VIR control desk @ [phone], once pertinent labs and anticoagulant medications have been reviewed, per guidelines below. Please refer to the procedure note section for preliminary procedure details as well as the imaging section for the final procedure report. Pertinent image (if applicable): Pertinent labs are as follows: No results found for: PTT Lab Results Component Value Date PLT 393 09/08/2024 Lab Results Component Value Date BUN 11 09/08/2024 Lab Results Component Value Date CREATININE 0.68 09/08/2024 Patient's allergies are as follows: Allergies as of 09/07/2024 (No Known Allergies) VIR Yaa-procedure lab value guideline (pending P&T review 03/2020): Table 1. LOW Bleeding Risk Laboratory Guidelines Low Bleeding Risk Procedures Target Laboratory Values3 Bone Marrow Biopsy [Platelet Count - N/A] Catheter exchanges (gastrostomy, biliary, nephrostomy, abscess, including gastrostomy/gastrojeju nostomy conversions) CVC tunneled >/= 8 Fr* Diagnostic venography and select venous interventions: pelvis and extremities Dialysis shunt interventions IVC filter placement and removal Non-tunneled chest tube placement for pleural effusion Non-tunneled venous access and removal (including PICC placement) and Tunneled venous access Paracentesis Peripheral nerve blocks, joint, and musculoskeletal injections Sacroiliac joint injection and sacral lateral branch blocks Superficial abscess drainage or biopsy (palpable lesion, lymph node, soft tissue, breast, thyroid) Thoracentesis Trans jugular liver biopsy Trigger point injections including piriformis Tunneled drainage catheter placement* PT/INR < 2.0 - 3.0 Platelets > 20,000/mcL (Consider transfusing platelets if <20,000/mcL) If patient with Chronic Liver Disease (based on expert opinion): PT/INR < 3.0 (Consider Vitamin K infusion if INR >3.0) Platelets > 20,000/mcL (Transfuse platelets if <20,000/mcL in patients with a large spleen) Fibrinogen > 100mg/dL (Consider cryoprecipitate if <100mg/dL) *If on Direct Oral Anticoagulant (DOAC), follow HIGH Bleeding Risk recommendations in Table 2 and Table 3 Table 2. HIGH Bleeding Risk Laboratory Guidelines: HIGH Bleeding Risk Procedures Target Laboratory Values3 Ablations: solid organs, bone, soft tissue, lung Arterial diagnostic interventions: aortic, pelvic, mesenteric, peripheral Biliary interventions (including cholecystostomy tube placement) Catheter directed thrombolysis/thrombect ayo- DVT, PE, portal vein (Highly case dependent) Deep abscess drainage (e.g., lung parenchyma, abdominal, pelvic, retroperitoneal) Deep non organ biopsies (e.g (more content not included)... Normal [facility] CT CHEST WITHOUT CONTRASTon 09-09-2024 CT CHEST WITHOUT CONTRAST EXAMINATION: CT CHEST WITHOUT CONTRAST HISTORY: Empyema. ORDERING SYSTEM PROVIDED HISTORY: Empyema, TECHNOLOGIST PROVIDED HISTORY: Illness/Other Reason for Exam: Empyema Encounter Type: Initial Additional Signs and Symptoms: n/a ORDERING SYSTEM PROVIDED DIAGNOSIS CODES: COMPARISON: CT chest 09/07/2024. TECHNIQUE: Multiple axial CT images of the chest were obtained without IV contrast. 2D coronal and sagittal MIP reformations were submitted for review. Dose reduction techniques were achieved by using automated exposure control and/or adjustment of mA and/or kV according to patient size and/or use of iterative reconstruction technique. FINDINGS: HEART AND PERICARDIUM: Cardiac size appears within normal limits. No pericardial fluid or nodularity. Decreased density of blood pool relative to the myocardium suggesting anemia. CORONARY ARTERIES: Coronary artery calcifications are absent. THORACIC AORTA: Thoracic aorta is normal caliber. THYROID: Visualized thyroid gland appears homogeneous. SUPRACLAVICULAR REGION AND AXILLA: No lymphadenopathy. MEDIASTINUM AND ANATOLIY: Right paratracheal lymph nodes measure up to 0.9 cm. Partially calcified subcarinal and bilateral hilar lymph nodes. ESOPHAGUS: The visualized esophagus appears unremarkable. LUNGS: There is mucous debris in the trachea. There is mild patchy opacities along the right middle lobe and bilateral lower lobes, right greater than left. Calcified nodules are noted bilaterally. No suspicious pulmonary nodules. PLEURA: Trace left pleural effusion. Small bore pleural drain is backed out and is noted deep to the right serratus muscles. There is a loculated right hydropneumothorax as noted on recent CT measuring 2.3 cm in diameter (previously 3.2 cm). UPPER ABDOMEN: Granulomatous calcifications in the spleen are noted. OSSEOUS STRUCTURES: No aggressive appearing osseous lesions. No compression fracture is identified. Convex left curvature of the dorsal spine with moderate degenerative disc disease. Bilateral glenohumeral joint osteoarthritis. Loose bodies along the right shoulder. IMPRESSION: 1. There is a decrease stsip-da-bjwyjnty right-sided hydropneumothorax compared to 09/07/2024 but similar to recent x-ray 09/09/2024. Previous small bore right pleural drain has backed out of the pleural space along the right chest wall. 2. Bilateral pulmonary opacities suggesting atelectasis. Superimposed pneumonia is not excluded. 3. Prior granulomatous disease. [facility]/lab Workstation ID: [id number] Dictated by: GERTRUDE VILLAREAL on MonSep 09, 2024 12:53:50 PM EDT Transcribed by: JUANITA NUÑEZ on MonSep 09, 2024 1:27:14 PM EDT Finalized by: GERTRUDE VILLAREAL on MonSep 09, 2024 1:32:33 PM EDT [facility] Comment on above: Order Comment: Injur y/Trauma or Illness?:Illness/OtherHow long have you had these symptoms (acute/chronic)?:AcuteReason for exam?:EmpyemaType of Exam?:InitialAdditional signs and symptoms?:n/a CT Chest WO contraston 09-09 1. There is a decrease chusu-sp-wcqbdsul right-sided hydropneumothorax compared to 09/07/2024 but similar to recent x-ray 09/09/2024. Previous small bore right pleural drain has backed out of the pleural space along the right chest wall. 2. Bilateral pulmonary opacities suggesting atelectasis. Superimposed pneumonia is not excluded. 3. Prior granulomatous disease. [facility]/lab Workstation ID: [id number] [employer] [facility] EXAMINATION: CT CHEST WITHOUT CONTRAST HISTORY: Empyema. ORDERING SYSTEM PROVIDED HISTORY: Empyema, TECHNOLOGIST PROVIDED HISTORY: Illness/Other Reason for Exam: Empyema Encounter Type: Initial Additional Signs and Symptoms: n/a ORDERING SYSTEM PROVIDED DIAGNOSIS CODES: COMPARISON: CT chest 09/07/2024. TECHNIQUE: Multiple axial CT images of the chest were obtained without IV contrast. 2D coronal and sagittal MIP reformations were submitted for review. Dose reduction techniques were achieved by using automated exposure control and/or adjustment of mA and/or kV according to patient size and/or use of iterative reconstruction technique. FINDINGS: HEART AND PERICARDIUM: Cardiac size appears within normal limits. No pericardial fluid or nodularity. Decreased density of blood pool relative to the myocardium suggesting anemia. CORONARY ARTERIES: Coronary artery calcifications are absent. THORACIC AORTA: Thoracic aorta is normal caliber. THYROID: Visualized thyroid gland appears homogeneous. SUPRACLAVICULAR REGION AND AXILLA: No lymphadenopathy. MEDIASTINUM AND ANATOLIY: Right paratracheal lymph nodes measure up to 0.9 cm. Partially calcified subcarinal and bilateral hilar lymph nodes. ESOPHAGUS: The visualized esophagus appears unremarkable. LUNGS: There is mucous debris in the trachea. There is mild patchy opacities along the right middle lobe and bilateral lower lobes, right greater than left. Calcified nodules are noted bilaterally. No suspicious pulmonary nodules. PLEURA: Trace left pleural effusion. Small bore pleural drain is backed out and is noted deep to the right serratus muscles. There is a loculated right hydropneumothorax as noted on recent CT measuring 2.3 cm in diameter (previously 3.2 cm). UPPER ABDOMEN: Granulomatous calcifications in the spleen are noted. OSSEOUS STRUCTURES: No aggressive appearing osseous lesions. No compression fracture is identified. Convex left curvature of the dorsal spine with moderate degenerative disc disease. Bilateral glenohumeral joint osteoarthritis. Loose bodies along the right shoulder. [employer] Gertrude Meza, - 09/09/2024 EXAMINATION: CT CHEST WITHOUT CONTRAST HISTORY: Empyema. ORDERING SYSTEM PROVIDED HISTORY: Empyema, TECHNOLOGIST PROVIDED HISTORY: Illness/Other Reason for Exam: Empyema Encounter Type: Initial Additional Signs and Symptoms: n/a ORDERING SYSTEM PROVIDED DIAGNOSIS CODES: COMPARISON: CT chest 09/07/2024. TECHNIQUE: Multiple axial CT images of the chest were obtained without IV contrast. 2D coronal and sagittal MIP reformations were submitted for review. Dose reduction techniques were achieved by using automated exposure control and/or adjustment of mA and/or kV according to patient size and/or use of iterative reconstruction technique. FINDINGS: HEART AND PERICARDIUM: Cardiac size appears within normal limits. No pericardial fluid or nodularity. Decreased density of blood pool relative to the myocardium suggesting anemia. CORONARY ARTERIES: Coronary artery calcifications are absent. THORACIC AORTA: Thoracic aorta is normal caliber. THYROID: Visualized thyroid gland appears homogeneous. SUPRACLAVICULAR REGION AND AXILLA: No lymphadenopathy. MEDIASTINUM AND ANATOLIY: Right paratracheal lymph nodes measure up to 0.9 cm. Partially calcified subcarinal and bilateral hilar lymph nodes. ESOPHAGUS: The visualized esophagus appears unremarkable. LUNGS: There is mucous debris in the trachea. There is mild patchy opacities along the right middle lobe and bilateral lower lobes, right greater than left. Calcified nodules are noted bilaterally. No suspicious pulmonary nodules. PLEURA: Trace left pleural effusion. Small bore pleural drain is backed out and is noted deep to the right serratus muscles. There is a loculated right hydropneumothorax as noted on recent CT measuring 2.3 cm in diameter (previously 3.2 cm). UPPER ABDOMEN: Granulomatous calcifications in the spleen are noted. OSSEOUS STRUCTURES: No aggressive appearing osseous lesions. No compression fracture is identified. Convex left curvature of the dorsal spine with moderate degenerative disc disease. Bilateral glenohumeral joint osteoarthritis. Loose bodies along the right shoulder. IMPRESSION: 1. There is a decrease zybnp-uu-eksjhvyf right-sided hydropneumothorax compared to 09/07/2024 but similar to recent x-ray 09/09/2024. Previous small bore right pleural drain has backed out of the pleural space along the right chest wall. 2. Bilateral pulmonary opacities suggesting atelectasis. Superimposed pneumonia is not excluded. 3. Prior granulomatous disease. [facility]/lab Workstation ID: [id number] [facility] Radiology Study observation (narrative) [facility] CT Chest WO contrastOrdered By: Gertrude Villareal on 09-09-2024 [facility] Work Phone: INR Coag (PPP) [Relative vilma e]on 09-09-2024 Interpretation and review of laboratory results Abnormal [facility] PT Coag (PPP) [Time] 17.7 s High [facility] During the induction phase of oral anticoagulation, the INR may not reflect the anticoagulation status of the patient. Therapeutic ranges for INR's are: Most clinical situations: INR 2.0-3.0 Mechanical Prosthetic Valve: INR 2.5-3.5 Critical: INR >5.0 [facility] PT/INRon 09-09-2024 INR Coag (PPP) [Relative time] 1.4 {INR} High 0.8 - 1.1 [facility] INR Coag (PPP) [Relative time] 1.4 {INR} High 0.8-1.1 [facility] Comment on above: Order Comment: Jarad giraldo the induction phase of oral anticoagulation, the INR may not reflect the anticoagulation status of the patient. Therapeutic ranges for INR's are:Most clinical situations: INR 2.0-3.0Mechanical Prosthetic Valve: INR 2.5-3.5Critical: INR >5.0 Performed By: #### [id number] #### [facility] [address] [place] [id number] Eliazar Franks M.D. [id number] PT Coag (PPP) [Time] 17.7 s High 11.8-14.3 [facility] Comment on above: Order Comment: Jarad giraldo the induction phase of oral anticoagulation, the INR may not reflect the anticoagulation status of the patient. Therapeutic ranges for INR's are:Most clinical situations: INR 2.0-3.0Mechanical Prosthetic Valve: INR 2.5-3.5Critical: INR >5.0 Performed By: #### [id number] #### [facility] [address] [place] [id number] Eliazar Franks M.D. [id number] XR CHEST PA/APon 09-09-2024 XR CHEST PA/AP EXAMINATION: XR CHEST PA/AP HISTORY: ORDERING SYSTEM PROVIDED HISTORY: re-eval chest tube, TECHNOLOGIST PROVIDED HISTORY: Illness/Other Reason for exam: re-eval chest tube Cancer History: u Surgery, RadiationHistory: u Encounter Type: Ongoing Additional signs and symptoms: , ORDERING SYSTEM PROVIDED DIAGNOSIS CODES: COMPARISON: 09/08/2024. FINDINGS: One-view chest x-ray. Pigtail catheter is seen at the lateral aspect of the right dru-ad-mlnvb chest. Catheter tip may be extrapleural in location. Small right pneumothorax at the lateral aspect of the right mid chest with 9 mm pleural separation. Small right basilar pleural effusion with underlying consolidation/compress clinton atelectasis. No left pneumothorax. Left apical calcified pulmonary granuloma. Normal heart size. IMPRESSION: Right xez-af-dfsrw chest pigtail catheter in place. Possible underlying catheter retraction compared to 09/08/2024. Tip may be in the extrapleural space. Small right hydropneumothorax. Pleural separation at the lateral aspect of the right mid chest measures up to 9 mm. Results were called by Dr. Eric Rayo to Claude LEMA on 09/09/2024 at 0920. [employer] Workstation ID: [id number] Dictated by: ERIC RAYO on MonSep 09, 2024 9:20:53 AM EDT Transcribed by: JUAN JIM on MonSep 09, 2024 9:25:43 AM EDT Finalized by: ERIC RAYO on MonSep 09, 2024 9:28:37 PM EDT [facility] Comment on above: Order Comment: Injur y/Trauma or Illness?:Illness/OtherHow long have you had these symptoms (acute/chronic)?:AcuteReason for exam?:re-eval chest tubeHistory of cancer?:uSurgeries, chemotherapy, or radiation?:uType of Exam?:OngoingAdditional signs and symptoms?:, XR Chest PA and Abdomen APon 09-09-2024 Right cke-zc-gxfgf chest pigtail catheter in place. Possible underlying catheter retraction compared to 09/08/2024. Tip may be in the extrapleural space. Small right hydropneumothorax. Pleural separation at the lateral aspect of the right mid chest measures up to 9 mm. Results were called by Dr. Eric Rayo to Claude LEMA on 09/09/2024 at 0920. [employer] Workstation ID: [id number] [facility] EXAMINATION: XR CHEST PA/AP HISTORY: ORDERING SYSTEM PROVIDED HISTORY: re-eval chest tube, TECHNOLOGIST PROVIDED HISTORY: Illness/Other Reason for exam: re-eval chest tube Cancer History: u Surgery, RadiationHistory: u Encounter Type: Ongoing Additional signs and symptoms: , ORDERING SYSTEM PROVIDED DIAGNOSIS CODES: COMPARISON: 09/08/2024. FINDINGS: One-view chest x-ray. Pigtail catheter is seen at the lateral aspect of the right fhv-us-jpawf chest. Catheter tip may be extrapleural in location. Small right pneumothorax at the lateral aspect of the right mid chest with 9 mm pleural separation. Small right basilar pleural effusion with underlying consolidation/compress clinton atelectasis. No left pneumothorax. Left apical calcified pulmonary granuloma. Normal heart size. Eric Otto, DO - 09/09/2024 EXAMINATION: XR CHEST PA/AP HISTORY: ORDERING SYSTEM PROVIDED HISTORY: re-eval chest tube, TECHNOLOGIST PROVIDED HISTORY: Illness/Other Reason for exam: re-eval chest tube Cancer History: u Surgery, RadiationHistory: u Encounter Type: Ongoing Additional signs and symptoms: , ORDERING SYSTEM PROVIDED DIAGNOSIS CODES: COMPARISON: 09/08/2024. FINDINGS: One-view chest x-ray. Pigtail catheter is seen at the lateral aspect of the right ufn-or-oggwk chest. Catheter tip may be extrapleural in location. Small right pneumothorax at the lateral aspect of the right mid chest with 9 mm pleural separation. Small right basilar pleural effusion with underlying consolidation/compress clinton atelectasis. No left pneumothorax. Left apical calcified pulmonary granuloma. Normal heart size. IMPRESSION: Right kru-nu-uadym chest pigtail catheter in place. Possible underlying catheter retraction compared to 09/08/2024. Tip may be in the extrapleural space. Small right hydropneumothorax. Pleural separation at the lateral aspect of the right mid chest measures up to 9 mm. Results were called by Dr. Eric Rayo to Claude LEMA on 09/09/2024 at 0920. /[facility] Workstation ID: [id number] [facility] Radiology Study observation (narrative) [facility] XR Chest PA and Abdomen APOr dered By: Eric Rayo on 09-09-2024 [facility] Work Phone: BASIC METABOLIC PANELon 08-25 Anion gap [Moles/Vol] 16 mmol/L Normal 10-20 [facility] Comment on above: Order Comment: [facility] Laboratory Services has implemented the eGFR calculation approach that does not have a coefficient for race that conforms to the NKF-ASN Task Force Recommendations. Performed By: #### 4 [id number] #### [facility] [address] [place], [place] [address] Judah Dubose M.D. [id number] Calcium [Mass/Vol] 8.4 mg/dL Normal 8.4-10.2 [facility] Comment on above: Order Comment: [facility] Laboratory Services has implemented the eGFR calculation approach that does not have a coefficient for race that conforms to the NKF-ASN Task Force Recommendations. Performed By: #### 4 [id number] #### [facility] [address] [place] [address] Judah Dubose M.D. [id number] Chloride [Moles/Vol] 104 mmol/L Normal 98-108 [facility] Comment on above: Order Comment: [facility] Laboratory Services has implemented the eGFR calculation approach that does not have a coefficient for race that conforms to the NKF-ASN Task Force Recommendations. Performed By: #### 4 [id number] #### LAB [address] [place] [address] Judah Dubose M.D. [id number] Creatinine [Mass/Vol] 0.68 mg/dL Normal 0.40-1.10 [facility] Comment on above: Order Comment: [facility] Laboratory Services has implemented the eGFR calculation approach that does not have a coefficient for race that conforms to the NKF-ASN Task Force Recommendations. Performed By: #### 4 [id number] #### LAB [address] [place] [address] Judah Dubose M.D. [id number] EGFR 114 mL/min/1.73 m2 Normal >=60 [facility] Comment on above: Order Comment: [facility] Laboratory Services has implemented the eGFR calculation approach that does not have a coefficient for race that conforms to the NKF-ASN Task Force Recommendations. Result Comment: Rhea mated GFR was calculated using the 2020 CKD-EPI creatinine equation. Performed By: #### 4 [id number] #### LAB [address] [place] [address] Judah Dubose M.D. [id number] Glucose [Mass/Vol] 149 mg/dL High 65-99 [facility] Comment on above: Order Comment: [facility] Laboratory Services has implemented the eGFR calculation approach that does not have a coefficient for race that conforms to the NKF-ASN Task Force Recommendations. Performed By: #### 4 [id number] #### LAB [address] [place], [place] [address] Judah Dubose M.D. [id number] HCO3 (Bld) [Moles/Vol] 21 mmol/L Normal 21-32 [facility] Comment on above: Order Comment: [facility] Laboratory [facility] has implemented the eGFR calculation approach that does not have a coefficient for race that conforms to the NKF-ASN Task Force Recommendations. Performed By: #### 4 [id number] #### LAB [address] [place] [address] Judah Dubsoe M.D. [id number] Potassium [Moles/Vol] 3.6 mmol/L Normal 3.5-5.1 [facility] Comment on above: Order Comment: [facility] Laboratory [facility] has implemented the eGFR calculation approach that does not have a coefficient for race that conforms to the NKF-ASN Task Force Recommendations. Performed By: #### 4 [id number] #### LAB [address] [place] [address] Judah Dubose M.D. [id number] Sodium [Moles/Vol] 137 mmol/L Normal 135-145 [facility] Comment on above: Order Comment: [facility] has implemented the eGFR calculation approach that does not have a coefficient for race that conforms to the NKF-ASN Task Force Recommendations. Performed By: #### 4 [id number] #### [facility] [address] [place], [place] [address] Judah Dubose M.D. [id number] Urea nitrogen [Mass/Vol] 11 mg/dL Normal 8-25 [facility] Comment on above: Order Comment: [facility] Laboratory [facility] has implemented the eGFR calculation approach that does not have a coefficient for race that conforms to the NKF-ASN Task Force Recommendations. Performed By: #### 4 [id number] #### LAB [address] [place] [id number] Judah Dubose M.D. [id number] Urea nitrogen/Creatinine [Mass ratio] 16.2 mg/mg Normal 10.0-20.0 [facility] Comment on above: Order Comment: [facility] Services has implemented the eGFR calculation approach that does not have a coefficient for race that conforms to the NKF-ASN Task Force Recommendations. Performed By: #### 4 [id number] #### LAB [address] [place] [address] Judah Dubose M.D. [id number] BODY FLUID AEROBIC CULTUREon 09-08-2024 BODY FLUID AEROBIC CULTURE AEROBIC CULTURE No Growth after 5 days GRAM STAIN RESULT Many WBC Many RBC No Organisms Seen Normal [facility] Comment on above: Performed By: #### 4 [id number] #### [facility] [address] [place] [address] Eliazar Franks M.D. [id number] BODY FLUID CELL COUNT WITH D IFFERENTIALon 09-08-2024 APPEARANCE, FLUID Cloudy Normal [facility] Comment on above: Performed By: #### 4 [id number] #### [facility] [address] [place] [address] Judah Dubose M.D. [id number] COLOR, FLUID Light Red Normal [facility] Comment on above: Performed By: #### 4 [id number] #### LAB [address] [place] [address] Judah Dubose M.D. [id number] EOSINOPHILS, FLUID 1 % High 0-0 [facility] Comment on above: Performed By: #### 4 [id number] #### [facility] [address] [place] [id number] Judah Dubose M.D. [id number] LYMPHOCYTES, FLUID 4 % High 0-0 [facility] Comment on above: Performed By: #### 4 [id number] #### [facility] [address] [place] [address] Judah Dubose M.D. [id number] MONOCYTES, FLUID 4 % High 0-0 [facility] Comment on above: Performed By: #### 4 [id number] #### LAB [address] [place], [place] [address] Judah Dubose M.D. [id number] NEUTROPHILS, FLUID 91 % High 0-25 [facility] Comment on above: Performed By: #### 4 [id number] #### [facility] [address] [place], [place] [address] Judah Dubose M.D. [id number] RBC, FLUID 23919 /mcL High 0-0 [facility] Comment on above: Performed By: #### 4 [id number] #### LAB [address] [place], [place] [address] Jduah Dubose M.D. [id number] WBC/NUC CELLS, FLUID 50837 /mcL High 0-1000 [facility] Comment on above: Result Comment: Spec imen contains clots and/or clumps of cells--cell count results may be affected. Performed By: #### 4 [id number] #### LAB [address] [place], [place] [address] Judah Dubose M.D. [id number] Basic metabolic 2000 panelon 09-08-2024 Anion gap [Moles/Vol] 16 mmol/L 10 - 20 mmol/L [facility] Calcium [Mass/Vol] 8.4 mg/dL 8.4 - 10. 2 mg/dL [facility] Chloride [Moles/Vol] 104 mmol/L 98 - 10 8 mmol/L [facility] Creatinine [Mass/Vol] 0.68 mg/dL 0.40 - 1.10 mg/dL [facility] GFR/1.73 sq M.predicted CKD-EPI (S/P/Bld) [Vol rate/Area] 114 - PINF [facility] Comment on above: Estimated GFR was ca lculated using the 2020 CKD-EPI creatinine equation. Glucose [Mass/Vol] 149 mg/dL High 65 - 99 mg/dL [facility] HCO3 [Moles/Vol] 21 mmol/L 21 - 32 mmol/L [facility] Interpretation and review of laboratory results Abnormal [facility] Potassium [Moles/Vol] 3.6 mmol/L 3.5 - 5.1 mmol/L [facility] Sodium [Moles/Vol] 137 mmol/L 135 - 145 mmol/L [facility] Urea nitrogen [Mass/Vol] 11 mg/dL 8 - 25 mg/dL [facility] Urea nitrogen/Creatinine [Mass ratio] 16.2 mg/mg 10.0 - 20.0 [facility] has implemented the eGFR calculation approach that does not have a coefficient for race that conforms to the NKF-ASN Task Force Recommendations. [facility] Body Fluid Cell Count with D ifferentialOrdered By: Shaylee Mark on 09-08-2024 Appearance (Body fld) Cloudy [facility] Color (Body fld) Light Red [facility] Eosinophils/100 WBC (Body fld) 1 % High 0 - 0 % [facility] Interpretation and review of laboratory results Abnormal [facility] Lymphocytes/100 WBC (Body fld) 4 % High 0 - 0 % [facility] Monocytes/100 WBC (Body fld) 4 % High 0 - 0 % [facility] Neutrophils/100 WBC (Body fld) 91 % High 0 - 25 % [facility] Nucleated cells Auto (Body fld) [#/Vol] [address] [facility] Comment on above: Specimen contains cl ots and/or clumps of cells--cell count results may be affected. RBC Auto (Body fld) [#/Vol] [address] [facility] CBC Auto Differentialon 08-25 Erythrocyte distribution width (RBC) [Entitic vol] 12.3 % 11.6 - 14.8 % [facility] Hematocrit (Bld) [Volume fraction] 37 % 36.0 - 46.0 % [facility] Hemoglobin (Bld) [Mass/Vol] 12.2 g/dL 12.0 - 16.0 g/dL [facility] MCH (RBC) [Entitic mass] 29.7 pg 26.0 - 34.0 pg [facility] MCHC (RBC) [Mass/Vol] 33 g/dL 31.0 - 37.0 g/dL [facility] MCV (RBC) [Entitic vol] 90 fL 80.0 - 100.0 fL [facility] Nucleated RBC (Bld) [#/Vol] 0 10*3/uL [facility] Nucleated RBC/100 WBC (Bld) [Ratio] 0 % [facility] Platelet mean volume (Bld) [Entitic vol] 9.2 fL Low 9.4 - 12.4 fL [facility] Platelets (Bld) [#/Vol] 393 10*3/uL [facility] RBC (Bld) [#/Vol] 4.11 10*6/uL [facility] WBC (Bld) [#/Vol] 19.96 10*3/uL [facility] CBC WITH AUTO DIFFERENTIALon 09-08-2024 AUTO NRBC 0.0 % Normal [facility] Comment on above: Performed By: #### 4 [id number] #### [facility] [address] [place], [place] [id number] Eliazar Franks M.D. [id number] AUTO NRBC ABS COUNT 0.00 K/mcL Normal 0.00-0.00 [facility] Comment on above: Performed By: #### 4 [id number] #### [facility] [address] [place] [address] Eliazar Franks M.D. [id number] Erythrocyte distribution width (RBC) [Ratio] 12.3 % Normal 11.6-14.8 [facility] Comment on above: Performed By: #### 4 [id number] #### [facility] [address] [place], [place] [id number] Eliazar Franks M.D. [id number] Hematocrit (Bld) [Volume fraction] 37.0 % Normal 36.0-46.0 [facility] Comment on above: Performed By: #### 4 [id number] #### [facility] [address] [place], [place] [address] Eliazar Franks M.D. [id number] Hemoglobin (Bld) [Mass/Vol] 12.2 g/dL Normal 12.0-16.0 [facility] Comment on above: Performed By: #### 4 [id number] #### [facility] [address] [place], [place] [id number] Eliazar Franks M.D. [id number] MCH (RBC) [Entitic mass] 29.7 pg Normal 26.0-34.0 [facility] Comment on above: Performed By: #### 4 [id number] #### [facility] [address] [place] [address] Eliazar Franks M.D. [id number] MCV (RBC) [Entitic vol] 90.0 fL Normal 80.0-100.0 [facility] Comment on above: Performed By: #### 4 [id number] #### [facility] [address] [place], [place] [address] Eliazar Franks M.D. [id number] MEAN CORPUSCULAR HEMOGLOBIN CONC 33.0 g/dL Normal 31.0-37.0 [facility] Comment on above: Performed By: #### 4 [id number] #### [facility] [address] [place] [address] Eliazar Franks M.D. [id number] Platelet mean volume (Bld) [Entitic vol] 9.2 fL Low 9.4-12.4 [facility] Comment on above: Performed By: #### 4 [id number] #### [facility] [address] [place] [address] Eliazar Franks M.D. [id number] Platelets (Bld) [#/Vol] 393 10*3/uL Normal 150-400 [facility] Comment on above: Performed By: #### 4 [id number] #### [facility] [address] [place] [address] Eliazar Franks M.D. [id number] RBC (Bld) [#/Vol] 4.11 10*6/uL Normal 4.00-5.20 [facility] Comment on above: Performed By: #### 4 [id number] #### [facility] [address] [place] [address] Eliazar Franks M.D. [id number] WBC (Bld) [#/Vol] 19.96 10*3/uL High 4.50-11.00 [facility] Comment on above: Performed By: #### 4 [id number] #### [facility] [address] [place] [address] Eliazar Franks M.D. [id number] CBC and Diff Morphologyon Neutrophils.vacuolated LM Ql (Bld) Present [facility] Platelets LM Ql (Bld) Normal Normal [facility] Polychromasia LM Ql (Bld) Few [facility] RBC morphology finding Nom (Bld) See Comment [facility] Comment on above: RBC Indices confirme d with manual peripheral smear review. CONSULTon 09-08-2024 CONSULT PULMONOLOGY CONSULT 09/08/2024 Patient: Gricel Patel Date of : 1985 Site: [facility] Referring Provider: Refer to consult order in electronic medical record Provider: Chandu Mathew MD ASSESSMENT/PLAN: Gricel Patel 38 y.o. female with no active medical problems presented to the hospital with chest pain radiating to her back for the past 1-2 weeks. Associated with difficulty breathing over the past few days which is why she presented to the hospital. Denies having obvious fever or chills but has been having feeling of hot and cold. Reported having dental carries and says she needs to go to the dentist to her tooth extracted. Reports having a 2 week long respiratory infection around [place] time. She never seeked any medical care and never got any antibiotics. Says that her symptoms got better on its own. CT chest done on admission showed presence of right-sided loculated pleural effusion. Right-sided loculated Pleural Effusion - concern for empyema Right Lower lobe pnuemonia Sepsis Nicotine dependence, active smoker - Will plan for bedside chest tube placement. Will likely need tpA/dornase instillation through the chest tube - Will send for pleural fluid analysis and culture - Continue antibiotics. Check MRSA nares - Follow-up on blood cultures and sputum culture SUBJECTIVE: Chief Complaint/Reason for Visit: Pleuritic chest pain, shortness of breath History of Present Illness: Gricel Patel 38 y.o. female with no active medical problems presented to the hospital with chest pain radiating to her back for the past 1-2 weeks. Associated with difficulty breathing over the past few days which is why she presented to the hospital. Denies having obvious fever or chills but has been having feeling of hot and cold. Reported having dental carries and says she needs to go to the dentist to her tooth extracted. Reports having a 2 week long respiratory infection around [place] time. She never seeked any medical care and never got any antibiotics. Says that her symptoms got better on its own. CT chest done on admission showed presence of right-sided loculated pleural effusion. Interpretation of Testing: I personally reviewed the CT chest and agree with the interpretation(s). Review of Systems: GI:No abdominal pain.No abdominal distention :No dysuria All other systems reviewed and negative other than HPI History reviewed. No pertinent past medical history. Past Surgical History: Procedure Laterality Date APPENDECTOMY History reviewed. No pertinent family history. Tobacco Use History[1] Additional History Comments: None Allergies: Patient has no known allergies. Current HOSPITAL Medications: Current Hospital Medications[2] Current Medications[3] OBJECTIVE: Physical Examination: BP 136/85 Pulse 88 Temp 98.1 degrees F (36.7 degrees C) (Oral) Resp (!) 20 Ht 5' 5 Wt 93 kg (205 lb 0.4 oz) LMP (LMP Unknown) Comment: preg test done and neg SpO2 92% BMI 34.12 kg/m Temp: [97.3 degrees F (36.3 degrees C)-98.9 degrees F (37.2 degrees C)] 98.1 degrees F (36.7 degrees C) Heart Rate: [86-122] 88 Resp: [16-20] 20 BP: (98-136)/(70-113) 136/85 SpO2 Readings from Last 1 Encounters: 09/08/24 92% Intake/Output Summary (Last 24 hours) at 09/08/2024 0824 Last data filed at 09/08/2024 0533 Gross per 24 hour Intake 2115 ml Output -- Net 2115 ml Vital Signs Reviewed. Gen: Alert and oriented x 3, In no apparent distress Cardio: regular rate and rhythm, no murmur Resp: Decreased breath sounds in the right lower base, no respiratory distress Abd: soft, nontender MSK: Moves all four extremities spontaneously. Neuro: Grossly normal without focal findings Skin: no rashes, no jaundice Labs and Imaging: [x] Medications reviewed. [x] Labs reviewed. Pertinent findings noted: WBC 19.96 [x] Radiology reviewed. Pertinent findings noted: CT chest reviewed [] Pathology reviewed. Pertinent findings noted: Family Update/ Code Status: Full Laboratory and Additional Data Reviewed: Reviewed 09/08/24 8:24 AM: Laboratory, Radiology, and Medications [1] Social History Tobacco Use Smoking Status Every Day Types: Cigarettes Smokeless Tobacco Never [2] aluminum-magnesium hydroxide-simethicone (MAALOX PLUS) 200-200-20 mg/5 mL suspension 30 mL, 30 mL, Oral, Q4H PRN cefTRIAXone (ROCEPHIN) IVPB 2 g (premix), 2,000 mg, Intravenous, Q24H enoxaparin (LOVENOX) syringe 40 mg, 40 mg, Subcutaneous, Daily ketorolac (TORADOL) injection 15 mg, 15 mg, Intravenous, Q6H PRN metroNIDAZOLE (FLAGYL) IVPB 500 mg, 500 mg, Intravenous, Q8H naloxone (NARCAN) injection 0.1 mg, 0.1 mg, Intravenous, PRN AND Notify physician, , , Until Discontinued AND naloxone (NARCAN) injection 0.4 mg, 0.4 mg, Intravenous, PRN ondansetron (ZOFRAN-ODT) disintegrating tablet 4 mg, 4 mg, Oral, Q6H PRN OR ondansetron (ZOFRAN) injection (more content not included)... Normal [facility] GLUCOSE, BODY FLUIDon 2024 GLUCOSE FLUID < Normal [facility] Comment on above: Order Comment: No es tablished reference range. Performed By: #### 4 [id number] #### [facility] [address] [place], [place] [address] Judah Dubose M.D. [id number] Glucose (Body fld) [Mass/Vol ]on 09-08-2024 No established reference range. [facility] Glucose, Body Fluidon 2024 Glucose (Body fld) [Mass/Vol] mg/dL mg/dL [facility] LDH BODY FLUIDon 09-08-2024 LACTATE DEHYDROGENASE FLUID > Normal [facility] Comment on above: Order Comment: No es tablished reference range. Performed By: #### 4 [id number] #### [facility] [address] [place], [place] [address] Judah Dubose M.D. [id number] LDH Body Fluidon 09-08-2024 LDH Pyruvate to lactate reaction ([place] fld) [Catalytic activity/Vol] U/L U/L [facility] LDH Pyruvate to lactate reac tion ([place] fld) [Catalytic activity/Vol]on 09-08-2024 No established reference range. [facility] MAGNESIUM LEVELon 09-08-2024 Magnesium [Mass/Vol] 1.8 mg/dL Normal 1.6-2.4 [facility] Comment on above: Performed By: #### 4 6109 #### LAB [address] [place] [address] Judah Dubose M.D. [id number] MANUAL DIFFERENTIALon 2024 BASOPHILS - ABS (DIFF) 0.00 K/mcL Normal 0.00-0.30 [facility] Comment on above: Performed By: #### 4 [id number] #### LAB [address] [place] [address] Judah Dubose M.D. [id number] BASOPHILS - REL (DIFF) 0.0 % Normal [facility] Comment on above: Performed By: #### 4 [id number] #### LAB [address] [place] [address] Judah Dubose M.D. [id number] EOSINOPHILS - ABS (DIFF) 0.00 K/mcL Normal 0.00-0.50 [facility] [facility] Comment on above: Performed By: #### [id number] #### LAB [address] [address] Judah Dubose M.D. [id number] EOSINOPHILS - REL (DIFF) 0.0 % Normal [facility] Comment on above: Performed By: #### [id number] #### LAB [address] [address] Judah Dubose M.D. [id number] LYMPHOCYTES - ABS (DIFF) 0.80 K/mcL Low 0.90-4.00 [facility] Comment on above: Performed By: #### [id number] #### LAB [address] [address] Judah Dubose M.D. [id number] LYMPHOCYTES - REL (DIFF) 4.0 % Normal [facility] Comment on above: Performed By: #### [id number] #### LAB [address] [address] Judah Dubose M.D. [id number] MONOCYTES - ABS (DIFF) 0.60 K/mcL Normal 0.30-0.90 [facility] Comment on above: Performed By: #### [id number] #### LAB [address] [address] Judah Dubose M.D. [id number] MONOCYTES - REL (DIFF) 3.0 % Normal [facility] Comment on above: Performed By: #### [id number] #### LAB [address] [address] Judah Dubose M.D. [id number] NEUTROPHILS - ABS (DIFF) 18.56 K/mcL High 1.70-7.00 [facility] Comment on above: Performed By: #### [id number] #### LAB [address] [address] Judah Dubose M.D. [id number] NEUTROPHILS - REL (DIFF) 93.0 % [facility] Comment on above: Performed By: #### [id number] #### LAB [address] [address] Judah Dubose M.D. [id number] MORPHOLOGYon 09-08-2024 PLATELET ESTIMATE Normal Normal Normal [facility] Comment on above: Performed By: #### [id number] #### [facility] [address] [place] [address] Eliazar Franks M.D. [id number] POLY SCAN Few Normal [facility] Comment on above: Performed By: #### [id number] #### [facility] [address] [place], [place] [id number] Eliazar Franks M.D. [id number] RBC MORPH SCAN See Comment Normal [facility] Comment on above: Result Comment: RBC Indices confirmed with manual peripheral smear review. Performed By: #### [id number] #### [facility] [address] [place], [place] [address] Eliazar Franks M.D. [id number] VACUOLATED GRANULOCYTES Present Normal [facility] Comment on above: Performed By: #### [id number] #### [facility] [address] [place], [place] [address] Eliazar Franks M.D. [id number] MRSA DNA AMPLIFIED PROBEon 0 09-08-2024 MRSA DNA AMPLIFIED PROBE Negative Normal Not Detected, MRSA NEGATIVE [facility] Comment on above: Performed By: #### [id number] #### [facility] [address] [place] [address] Eliazar Franks M.D. [id number] MRSA DNA Amplified ProbeOrde red By: Irina Balbuena on 09-08-2024 MRSA DNA ABBEY+probe Ql (Unsp spec) Negative Not Detected, MRSA NEGATIVE [facility] MRSA DNA ABBEY+probe Ql (Unsp spec)Ordered By: Irina Balbuena on 09-08-2024 Interpretation and review of laboratory results Normal [facility] Magnesiumon 09-08-2024 Magnesium [Mass/Vol] 1.8 mg/dL 1.6 - 2 .4 mg/dL [facility] Magnesium [Mass/Vol]on 09-08 Interpretation and review of laboratory results Normal [facility] Manual Differential panel (B ld)on 09-08-2024 Basophils (Bld) [#/Vol] 0 10*3/uL [facility] Basophils/100 WBC (Bld) 0 % [facility] Eosinophils (Bld) [#/Vol] 0 10*3/uL [facility] Eosinophils/100 WBC (Bld) 0 % [facility] Lymphocytes (Bld) [#/Vol] 0.8 10*3/uL Low [facility] Lymphocytes/100 WBC (Bld) 4 % [facility] Monocytes (Bld) [#/Vol] 0.6 10*3/uL [facility] Monocytes/100 WBC (Bld) 3 % [facility] Neutrophils (Bld) [#/Vol] 18.56 10*3/uL High [facility] Neutrophils/100 WBC (Bld) 93 % [facility] NONGYN CYTOLOGYon 09-08-2024 NONGYN CYTOLOGY Medical Cytology Report Case: [id number] Authorizing Provider: Chandu Mathew MD Collected: 09/08/2024 12:53 PM Ordering Location: [facility] Medical Received: 09/09/2024 08:27 AM Observation Pathologist: Jack Garcia DO Specimen: Pleural, Right Negative for malignant cells Acute inflammation at 1228 EDT Suspected Empyema A. Received fresh, designated Pleural R-Body Fluid, are 23 mL of alan colored, mucoid fluid. 1 air-dried Cytospin slide(s) Diff-Quik stained, 1 air-dried Cytospin slide(s) Pap stained, 1 cell block(s) prepared. Specimen collection time: 12:30, 09/08/2024 Time cell block placed in 10% neutral buffered formalin: 09:15, 09/09/2024 Time cell block removed from formalin: 21:50 (long run), 09/09/2024 LM Cytology preparations processed at: [facility] - [address] [place] [address] Normal [facility] Comment on above: Performed By: #### [id number] #### [facility] [address] [place] [address] Eliazar Franks M.D. [id number] No Panel Informationon 09-08 Interpretation and review of laboratory results Abnormal [facility] PH, BODY FLUIDon 09-08-2024 PH FLUID 6.6 Normal [facility] Comment on above: Order Comment: No es tablished reference range. Performed By: #### 4 [id number] #### [facility] [address] [place] [address] Judah Dubose M.D. [id number] PROTEIN, BODY FLUIDon 2024 PROTEIN FLUID 4.9 g/dL Normal [facility] Comment on above: Order Comment: No es tablished reference range. Performed By: #### 4 [id number] #### [facility] [address] [place] [address] Judah Dubose M.D. [id number] Protein (Body fld) [Mass/Vol ]Ordered By: Haylee Barron on 09-08-2024 No established reference range. [facility] Protein, Body FluidOrdered B y: Haylee Barron on 09-08-2024 Protein (Body fld) [Mass/Vol] 4.9 g/dL [facility] XR CHEST PA/APon 09-08-2024 XR CHEST PA/AP EXAMINATION: XR CHEST PA/AP 09/08/2024 12:45 pm HISTORY: ORDERING SYSTEM PROVIDED HISTORY: s/p chest tube placement, TECHNOLOGIST PROVIDED HISTORY: Illness/Other Reason for exam: s/p chest tube placement Cancer History: u Surgery, RadiationHistory: u Encounter Type: Initial Additional signs and symptoms: u ORDERING SYSTEM PROVIDED DIAGNOSIS CODES: COMPARISON: Comparison is CT 09/07/2024. FINDINGS: Single projection. Pigtail catheter has been placed in the right costophrenic angle. There is an infiltrate or atelectasis at right lung base. Left lung is essentially clear. Heart size normal. No pneumothorax at apex or base of right lung. IMPRESSION: 1. Status post placement of a right pleural drain. 2. No pneumothorax. [employer] Workstation ID: [id number] Dictated by: TOMÁS FREIRE on MonSep 08, 2024 2:55:31 PM EDT Transcribed by: MONE PAGAN on MonSep 08, 2024 3:07:47 PM EDT Finalized by: TOMÁS FREIRE on MonSep 08, 2024 3:27:56 PM EDT Normal [facility] Comment on above: Order Comment: Injur y/Trauma or Illness?:Illness/OtherHow long have you had these symptoms (acute/chronic)?:AcuteReason for exam?:s/p chest tube placementHistory of cancer?:uSurgeries, chemotherapy, or radiation?:uType of Exam?:InitialAdditional signs and symptoms?:u XR Chest PA and Abdomen APon 09-08-2024 1. Status post placement of a right pleural drain. 2. No pneumothorax. [employer]L/[employer] Workstation ID: [id number] GE RIS EXAMINATION: XR CHEST PA/AP 09/08/2024 12:45 pm HISTORY: ORDERING SYSTEM PROVIDED HISTORY: s/p chest tube placement, TECHNOLOGIST PROVIDED HISTORY: Illness/Other Reason for exam: s/p chest tube placement Cancer History: u Surgery, RadiationHistory: u Encounter Type: Initial Additional signs and symptoms: u ORDERING SYSTEM PROVIDED DIAGNOSIS CODES: COMPARISON: Comparison is CT 09/07/2024. FINDINGS: Single projection. Pigtail catheter has been placed in the right costophrenic angle. There is an infiltrate or atelectasis at right lung base. Left lung is essentially clear. Heart size normal. No pneumothorax at apex or base of right lung. [facility] Tomás Freire MD - 09/08/2024 EXAMINATION: XR CHEST PA/AP 09/08/2024 12:45 pm HISTORY: ORDERING SYSTEM PROVIDED HISTORY: s/p chest tube placement, TECHNOLOGIST PROVIDED HISTORY: Illness/Other Reason for exam: s/p chest tube placement Cancer History: u Surgery, RadiationHistory: u Encounter Type: Initial Additional signs and symptoms: u ORDERING SYSTEM PROVIDED DIAGNOSIS CODES: COMPARISON: Comparison is CT 09/07/2024. FINDINGS: Single projection. Pigtail catheter has been placed in the right costophrenic angle. There is an infiltrate or atelectasis at right lung base. Left lung is essentially clear. Heart size normal. No pneumothorax at apex or base of right lung. IMPRESSION: 1. Status post placement of a right pleural drain. 2. No pneumothorax. [employer] Workstation ID: [id number] [facility] Radiology Study observation (narrative) [facility] XR Chest PA and Abdomen APOr dered By: Tomás Freire on 09-08-2024 [facility] Work Phone: pH (Body fld)Ordered By: Cristofer Peterson on 09-08-2024 No established reference range. [facility] pH, Body FluidOrdered By: Ab Golden on 09-08-2024 pH (Body fld) 6.6 [pH] [facility] BLOOD CULTURE AEROBIC/ANAERO BICon 09-07-2024 BLOOD CULTURE AEROBIC/ANAEROBIC BLOOD CULTURE No Growth after 5 days [facility] Comment on above: Performed By: #### 4 [id number] #### [facility] LAB [address] [place], [place] [address] Judah Dubose M.D. [id number] CT CHEST ABDOMEN PELVIS WITH IV CONTRAST ONLYon 09-07-2024 CT CHEST ABDOMEN PELVIS WITH IV CONTRAST ONLY EXAMINATION: CT CHEST ABDOMEN PELVIS WITH IV CONTRAST ONLY HISTORY: Right upper quadrant pain rule out cholecystitis Injury/Trauma or Illness?:Illness/Other How long have you had these symptoms (acute/chronic)?:Acute Reason for exam?:Right upper quadrant pain rule out cholecystitis Type of Exam?:Initial Additional signs and symptoms?:none COMPARISON: None TECHNIQUE: Contrast-enhanced helically acquired data per standard protocol. All CT scans at this facility use dose modulation, iterative reconstruction, and/or weight based dosing when appropriate to reduce radiation dose to as low as reasonably achievable. FINDINGS: AXILLAE: No acute findings SUPRACLAVICULAR: No acute finding MEDIASTINUM: No anterior mediastinal adenopathy. Borderline pretracheal node. Several partially calcified subcarinal nodes. ANATOLIY: Partially calcified nodes bilaterally HEART: Normal in size. No pericardial effusion. VASCULAR: No thoracic aortic aneurysm. Central pulmonary arteries are normal in size. LUNGS AND PLEURA : Granuloma several granulomas left lung. Areas of slight atelectasis or scarring peripherally in the left lower lobe. There is a modest rind of right pleural fluid, particularly laterally and posteriorly. Maximum with is 32 mm. It measures 25 Hounsfield units in density. In a lobular manner there is some extension into superior portion of the oblique fissure. Atelectasis aspects of the right lower lobe and right middle lobe. CHEST WALL: No focal soft tissue density prominence. LIVER: No acute findings. SPLEEN:No acute findings. GB/BILIARY: No acute findings at CT. PANCREAS: No acute finding. Partial fatty replacement of the head and uncinate process. Pancreatic duct is not dilated ADRENALS: No acute findings. KIDNEYS/URETERS: No acute findings. VESSELS: No AAA ABDOMINAL NODES: No adenopathy PELVIC NODES: No adenopathy BLADDER: Nearly empty REPRODUCTIVE: Uterus is anteverted. Ovaries are unremarkable appearance at CT PERITONEUM: No free air. No free fluid. EXTRAPERITONEUM: No acute findings. BOWEL: No GI obstruction. Modest amount of stool right colon extending through the a hepatic flexure. Mild amount of stool rectosigmoid. Stomach contains a mild amount of fluid and air. Nondilated small bowel contains a mild amount of material and small amount of air. On this exam performed without oral contrast medium, no focally thickened loop of bowel is readily apparent. BODY WALL: No acute findings. BONES: No acute findings. OTHER:None IMPRESSION: 1. A modest rind of nonspecific right pleural fluid. Given morphology likely there is some internal complexity to the material. There is some associated atelectasis aspects of the right middle lobe and right lower lobe. 2. No acute finding in the abdomen or pelvis. Workstation ID: [id number] Dictated by: YOHANA REYNOLDS on Sat Sep 07, 2024 10:20:06 AM EDT Transcribed by: YOHANA REYNOLDS on Sat Sep 07, 2024 10:20:06 AM EDT Finalized by: YOHANA REYNOLDS on Sat Sep 07, 2024 10:20:06 AM EDT [facility] Comment on above: Order Comment: Injur y/Trauma or Illness?:Illness/Other How long have you had these symptoms (acute/chronic)?:Acute Reason for exam?:Right upper quadrant pain rule out cholecystitis Type of Exam?:Initial Additional signs and symptoms?:none ED Prov Noteon 09-07-2024 ED Prov Note HPI: 09/07/2024, Time: @NOWNR@ Gricelbishop Patel is a 38 y.o. female presenting to the ED for gradual onset of right upper quadrant pain, beginning 1 week ago. The complaint has been intermittent, moderate in severity, and worsened by food intake and deep inspiration. Occasional emesis. No fever or chills. ROS: Pertinent positives and negatives are stated within HPI, all other systems reviewed and are negative. - PAST HISTORY - Past Medical History: @[facility]@ Past Surgical History: has a past surgical history that includes Appendectomy. Social History: reports that she has been smoking cigarettes. She has never used smokeless tobacco. She reports that she does not use drugs. Family History: family history is not on file. The patient's home medications have been reviewed. Allergies: Patient has no known allergies. ------ RESULTS ----- All laboratory and radiology results have been personally reviewed by myself LABS: Results for orders placed or performed during the hospital encounter of 09/07/24 POC CBC and Differential Collection Time: 09/07/24 8:47 AM Result Value Ref Range WBC 15.06 (H) 4.50 - 11.00 K/mcL RBC 4.94 4.00 - 5.20 M/mcL Hemoglobin 14.9 12.0 - 16.0 g/dL Hematocrit 44.6 36.0 - 46.0 % MCV 90.3 80.0 - 100.0 fL MCH 30.2 26.0 - 34.0 pg MCHC 33.4 31.0 - 37.0 g/dL RDW - CV 11.9 11.6 - 14.8 % Platelets 422 (H) 150 - 400 K/mcL MPV 9.6 9.4 - 12.4 fL Neutrophils 87.8 % Lymphocytes 8.5 % Monocytes 3.0 % Eosinophils 0.3 % Basophils 0.2 % IG Percent 0.20 % Neutrophils Abs 13.22 (H) 1.70 - 7.00 K/mcL Lymphocytes Abs 1.28 0.90 - 4.00 K/mcL Monocytes Abs 0.45 0.30 - 0.90 K/mcL Eosinophils Abs 0.05 0.00 - 0.50 K/mcL Basophils Abs 0.03 0.00 - 0.30 K/mcL IG Absolute 0.03 0.00 - 0.30 K/mcL POC Basic Metabolic Panel Collection Time: 09/07/24 8:52 AM Result Value Ref Range Glucose 103 (H) 65 - 99 mg/dL BUN 13 8 - 25 mg/dL Creatinine 0.71 0.40 - 1.10 mg/dL GFR 111 >=60 mL/min/1.73 m2 Sodium 139 135 - 145 mmol/L Potassium 3.5 3.5 - 5.1 mmol/L Chloride 103 98 - 108 mmol/L TCO2 25 21 - 32 mmol/L Ionized Calcium 4.5 4.5 - 5.3 mg/dL POC Liver Panel Plus Collection Time: 09/07/24 8:52 AM Result Value Ref Range Albumin 3.0 (L) 3.2 - 5.2 g/dL Alkaline Phosphatase 91 40 - 140 U/L ALT (SGPT) 29 0 - 40 U/L AST (SGOT) 22 0 - 45 U/L Bilirubin, Total 0.7 0.0 - 1.3 mg/dL Total Protein 8.7 (H) 6.0 - 8.0 g/dL Amylase 17 (L) 25 - 115 U/L GGT 22 7 - 33 U/L POC Urinalysis Dipstick, Auto Collection Time: 09/07/24 8:54 AM Result Value Ref Range Spec Grav, UA >=1.030 (H) 1.005 - 1.025 pH, UA 6.0 5.0 - 7.0 Protein, UA >=300 (A) Negative mg/dL Glucose, UA Negative Negative mg/dL Ketones, UA >=160 (A) Negative mg/dL Bilirubin, UA Moderate (A) Negative Urobilinogen, UA 2.0 (A) <2.0 mg/dL Blood, UA Negative Negative Nitrite, UA Negative Negative Leukocyte Esterase, UA Negative Negative POC , Urine Collection Time: 09/07/24 8:54 AM Result Value Ref Range POC Preg Test, Urine Negative Negative RADIOLOGY: Interpreted by Radiologist. CT Chest Abdomen Pelvis With IV Contrast Only Final Result 1. A modest rind of nonspecific right pleural fluid. Given morphology likely there is some internal complexity to the material. There is some associated atelectasis aspects of the right middle lobe and right lower lobe. 2. No acute finding in the abdomen or pelvis. Workstation ID: [id number] --- NURSING NOTES AND VITALS REVIEWED ----- The nursing notes within the ED encounter and vital signs as below have been reviewed. BP (!) 134/113 (BP Location: Left arm, Patient Position: Sitting) Pulse (!) 122 Temp 97.3 degrees F (36.3 degrees C) Resp (!) 20 Ht 5' 5 Wt 90.7 kg (200 lb) LMP (LMP Unknown) SpO2 94% BMI 33.28 kg/m Oxygen Saturation Interpretation: Normal -------PHYSICAL EXAM Constitutional/General : Alert and oriented x3, well appearing, non toxic in moderate apparent pain Head: NC/AT Eyes: PERRL, EOMI Mouth: Oropharynx clear, handling secretions, no trismus Neck: Supple, full ROM, no meningeal signs Pulmonary: Lungs clear to auscultation bilaterally, no wheezes, rales, or rhonchi. Not in respiratory distress Cardiovascular: Regular rate and rhythm, no murmurs, gallops, or rubs. 2+ distal pulses Abdomen: Soft, moderate right upper quadrant tenderness with guarding but no rebound non distended, Extremities: Moves all extremities x 4. Warm and well perfused Skin: warm and dry without rash Neurologic: GCS 15, Psych: Normal Affect -------- ED COURSE/MEDICAL DECISION MAKING (more content not included)... Normal [facility] POC BASIC METABOLIC PANEL - [facility] 09-07-2024 Chloride [Moles/Vol] 103 mmol/L Normal 98-108 [facility] Comment on above: Order Comment: [facility] has implemented the eGFR calculation approach that does not have a coefficient for race that conforms to the NKF-ASN Task Force Recommendations. CO2 [Moles/Vol] 25 mmol/L Normal 21-32 [facility] Comment on above: Order Comment: [facility] has implemented the eGFR calculation approach that does not have a coefficient for race that conforms to the NKF-ASN Task Force Recommendations. Creatinine [Mass/Vol] 0.71 mg/dL Normal 0.40-1.10 [facility] Comment on above: Order Comment: [facility] has implemented the eGFR calculation approach that does not have a coefficient for race that conforms to the NKF-ASN Task Force Recommendations. Glucose [Mass/Vol] 103 mg/dL High 65-99 [facility] Comment on above: Order Comment: [facility] has implemented the eGFR calculation approach that does not have a coefficient for race that conforms to the NKF-ASN Task Force Recommendations. POC GFR 111 mL/min/1.73 m2 Normal >=60 [facility] Comment on above: Order Comment: [facility] has implemented the eGFR calculation approach that does not have a coefficient for race that conforms to the NKF-ASN Task Force Recommendations. Result Comment: Rhea mated GFR was calculated using the 2020 CKD-EPI creatinine equation. POC IONIZED CALCIUM 4.5 mg/dL Normal 4.5-5.3 [facility] Comment on above: Order Comment: [facility] has implemented the eGFR calculation approach that does not have a coefficient for race that conforms to the NKF-ASN Task Force Recommendations. Potassium [Moles/Vol] 3.5 mmol/L Normal 3.5-5.1 [facility] Comment on above: Order Comment: [facility] has implemented the eGFR calculation approach that does not have a coefficient for race that conforms to the NKF-ASN Task Force Recommendations. Sodium [Moles/Vol] 139 mmol/L Normal 135-145 [facility] Comment on above: Order Comment: [facility] has implemented the eGFR calculation approach that does not have a coefficient for race that conforms to the NKF-ASN Task Force Recommendations. Urea nitrogen [Mass/Vol] 13 mg/dL Normal 8-25 [facility] Comment on above: Order Comment: [facility] has implemented the eGFR calculation approach that does not have a coefficient for race that conforms to the NKF-ASN Task Force Recommendations. POC CBC AND DIFFERENTIALon 0 09-07-2024 BASOPHILS ABSOLUTE COUNT 0.03 K/mcL Normal 0.00-0.30 [facility] Basophils/100 WBC (Bld) 0.2 % Normal [facility] Eosinophils (Bld) [#/Vol] 0.05 10*3/uL Normal 0.00-0.50 [facility] Eosinophils/100 WBC (Bld) 0.3 % Normal [facility] Erythrocyte distribution width (RBC) [Ratio] 11.9 % Normal 11.6-14.8 [facility] Hematocrit (Bld) [Volume fraction] 44.6 % Normal 36.0-46.0 [facility] Hemoglobin (Bld) [Mass/Vol] 14.9 g/dL Normal 12.0-16.0 [facility] IG ABSOLUTE 0.03 K/mcL Normal 0.00-0.30 [facility] IG PERCENT 0.20 % Normal [facility] Comment on above: Result Comment: The IG parameter is the percentage of metamyelocytes, myelocytes and promyelocytes. An immature granulocyte count (IG) of 1% or more suggests the possibility of infection, an IG count of 3% is very likely related to an infection. Lymphocytes (Bld) [#/Vol] 1.28 10*3/uL Normal 0.90-4.00 [facility] Lymphocytes/100 WBC (Bld) 8.5 % Normal [facility] MCH (RBC) [Entitic mass] 30.2 pg Normal 26.0-34.0 [facility] MCV (RBC) [Entitic vol] 90.3 fL Normal 80.0-100.0 [facility] MEAN CORPUSCULAR HEMOGLOBIN CONC 33.4 g/dL Normal 31.0-37.0 [facility] Monocytes (Bld) [#/Vol] 0.45 10*3/uL Normal 0.30-0.90 [facility] Monocytes/100 WBC (Bld) 3.0 % Normal [facility] NEUTROPHILS ABSOLUTE COUNT 13.22 K/mcL High 1.70-7.00 [facility] Neutrophils/100 WBC (Bld) 87.8 % Normal [facility] Platelet mean volume (Bld) [Entitic vol] 9.6 fL Normal 9.4-12.4 [facility] Platelets (Bld) [#/Vol] 422 10*3/uL High 150-400 [facility] RBC (Bld) [#/Vol] 4.94 10*6/uL Normal 4.00-5.20 [facility] WBC (Bld) [#/Vol] 15.06 10*3/uL High 4.50-11.00 [facility] POC LIVER PANEL PLUS Susu 09-07-2024 Albumin [Mass/Vol] 3.0 g/dL Low 3.2-5.2 [facility] ALP [Catalytic activity/Vol] 91 U/L Normal 40-140 [facility] ALT [Catalytic activity/Vol] 29 U/L Normal 0-40 [facility] Amylase [Catalytic activity/Vol] 17 U/L Low 25-115 [facility] Amylase [Catalytic activity/Vol] 22 U/L Normal 7-33 [facility] AST [Catalytic activity/Vol] 22 U/L Normal 0-45 [facility] Bilirubin [Mass/Vol] 0.7 mg/dL Normal 0.0-1.3 [facility] Protein [Mass/Vol] 8.7 g/dL High 6.0-8.0 [facility] POC , URINE - [facility] n 09-07-2024 Beta HCG ( test) Ql (U) Negative Normal Negative [facility] Comment on above: Order Comment: Negat [place]: Dilute urine specimens, as indicated by a low specific gravity (<1.010) may not contain representitive levels of hCG. If is still suspected, a serum test or repeat urine test using a first morning urine specimen should be considered. POC [facility] BILIRUBIN, URINE Moderate Abnormal Negative [facility] POC BLOOD, URINE Negative Normal Negative [facility] POC GLUCOSE, URINE Negative Normal Negative [facility] POC KETONES, URINE >=160 Abnormal Negative [facility] POC LEUKOCYTE ESTERASE, URINE Negative Normal Negative [facility] POC NITRITE, URINE Negative Normal Negative [facility] POC PH, URINE 6.0 Normal 5.0-7.0 [facility] POC PROTEIN, URINE >=300 Abnormal Negative [facility] POC SPECIFIC GRAVITY >= High 1.005-1.025 [facility] POC UROBILINOGEN 2.0 mg/dL Abnormal < 2.0 [facility] CNPNon 09-05-2024 CNPN Telephone ([facility]) GRICEL PATEL ([id number]) 1985 F Date Time Provider Department 09/05/24 PRUDENCE ORNELAS [facility] During your visit today, we recorded the following information about you: Prudence Ornelas APRN.CNP 09/05/2024 8:03 AM Signed Patient has not viewed [employer] message sent related to results. Please reach out via telephone. Thanks Mac Lang MA 09/05/2024 8:15 AM Signed Patient notified of results, verbalized understanding. Patient stated not having eaten any food or drink yet the day she was seen, stressed importance of establishing with PCP to have labs redrawn as she had elevated glucose on fasting labs. Mac Lang MA Allergies As of Date: 09/05/2024 Noted Allergy Reaction VICODIN (HYDROCODONE-ACETAMINO PHE*02/01/2005 8 - GI Upset Comments: Patient c/o nausea and dizziness Date Reviewed: 09/02/2024 Reviewed by: Juli Torres MA - Fully Assessed Reason for Visit: Results [95] Patient Update [1234] Prescriptions as of 09/05/2024 - naproxen (NAPROSYN) 500 mg tablet Take 1 tablet by mouth two times a day as needed (FOR PAIN - TAKE WITH FOOD.). - cyclobenzaprine (FLEXERIL) 10 mg tablet Take 1 tablet by mouth three times a day as needed. - Clobetasol Propionate 0.05 % sham Apply 1 application to affected area once daily. For scalp Problem List As Of Date 09/05/2024 Noted Resolved Genital herpes [A60.00] 07/10/2012 Encounter Status:Closed by MAC LANG on 09/05/24 Normal [facility] CNOVon 09-02-2024 CNOV Office Visit ([facility] ) GRICEL PATEL ([id number]) 1985 F Date Time Provider Department 09/02/24 3:00 PM AUREA DOSS [facility] During your visit today, we recorded the following information about you: Temperature Pulse Respiration Blood pressure 99.8 degrees 103/minute 20/minute 104/72 Weight 93.9 kg Aurea Doss EAP COUNSELOR.HOUSE CARPENTER 09/02/2024 3:30 PM Signed Subjective The history is provided by the patient. No clinic office assistant was used. HPI Gricel Patel is a 38 year old female who presents today for CC of mid right sided back pain. Right flank Pain: - Acute onset sharp, intermittent pain in the right flank, x4 days. - Describes pain as sharp and shooting, lasting 5-10 minutes per episode. - Pain is localized to the right flank, with a persistent sore sensation. - Denies fever, chills, body aches, or emesis. - Works third shift at [employer]; reports high consumption of Sprite and low water intake. - Denies any other concerns. BP 104/72 Pulse 103 Temp 37.7 ?C (99.8 ?F) Resp 20 Wt 93.9 kg (207 lb 0.2 oz) LMP 12/31/2012 SpO2 96% Social History Tobacco Use Smoking status: Every Day Current packs/day: 1.00 Average packs/day: 1 pack/day for 3.0 years (3.0 ttl pk-yrs) Types: Cigarettes Smokeless tobacco: Never Substance Use Topics Alcohol use: No Drug use: No PAST MEDICAL HISTORY Diagnosis Date Infectious mononucleosis Mononucleosis Urinary tract infection, site not specified I have confirmed and edited as necessary, the [facility] Review of Systems Constitutional: Negative for chills and fever. Musculoskeletal: Positive for back pain. Negative for joint pain and myalgias. Skin: Negative for itching and rash. All other systems reviewed and are negative. Objective Physical Exam Vitals and nursing note reviewed. Pulmonary: Effort: Pulmonary effort is normal. Skin: General: Skin is warm and dry. Neurological: Mental Status: She is alert and oriented to person, place, and time. Psychiatric: Mood and Affect: Affect normal. Latest Ref Rng 09/02/2024 GLUCOSE UA (POCT) Negative mg/dL Negative BILIRUBIN UA (POCT) Negative Small ! KETONE UA (POCT) Negative mg/dL 40 ! SPECIFIC GRAVITY UA (POCT) 1.005 - 1.030 >=1.030 HEMOGLOBIN/BLOOD UA (POCT) Negative Trace-lysed ! PH UA (POCT) 4.5 - 8.0 5.5 PROTEIN UA (POCT) Negative mg/dL 100 ! UROBILINOGEN UA (POCT) Normal E.U./dL 0.2 NITRITE UA (POCT) Negative Negative LEUKOCYTES UA (POCT) Negative Negative COLOR UA (POCT) Dark yellow CLARITY UA (POCT) Cloudy ASSESSMENT/PLAN: 1. Acute right-sided back pain, unspecified back location - ICD9: 724.5, ICD10: M54.9 Appears to be muscle strain Urine dip abnormal, will check CMP does not have PCP - will need referral if abnormal - NSAIDS- see orders - Muscle relaxant- see orders - Patient given instructions use of medications as ordered, intermittent rest, back care exercise program, proper lifting techniques, and increasing water intake - UA DIP, URINE (POC) - COMPREHENSIVE METABOLIC PANEL Diagnosis and treatment plan were discussed and questions were answered to the patient's satisfaction. Pt acknowledged understanding of concepts and follow up plan. Specific signs and symptoms that would indicate the need for higher level of care were discussed in detail warranting prompt ER evaluation. Aurea Doss APRN.Aurea Davis APRN.CNP 09/02/2024 3:29 PM Signed Appears to be muscle strain Urine dip abnormal, will check CMP does not have PCP - will need referral if abnormal - NSAIDS- see orders - Muscle relaxant- see orders Allergies As of Date: 09/02/2024 Noted Allergy Reaction VICODIN (HYDROCODONE-ACETAMINO PHE*02/01/2005 8 - GI Upset Comments: Patient c/o nausea and dizziness Date Reviewed: 09/02/2024 Reviewed by: Juli Torres MA - Fully Assessed Reason for Visit: Back Pain [12] Cmt: Mid back pain x 4 days Primary Visit Diagnosis:Acute right-sided back pain, unspecified back location [M54.9] Order(s):UA DIP, URINE (POC) [[id number]] Order #: [id number] #:[id number] naproxen (NAPROSYN) 500 mg tabletTake 1 tablet by mouth two times a day as needed (FOR PAIN - TAKE WITH FOOD.).Disp: 28 tabletRfl: 0 cyclobenzaprine (FLEXERIL) 10 mg tabletTake 1 tablet by mouth three times a day as needed.Disp: 15 tabletRfl: 0 COMPREHENSIVE METABOLIC PANEL [SQCMP] Order #: [id number] FUTURE Prescriptions as of 09/02/2024 - naproxen (NAPROSYN) 500 mg tablet Take 1 tablet by mouth two times a day as needed (FOR PAIN - TAKE WITH FOOD.). - cyclobenzaprine (FLEXERIL) 10 mg tablet Take 1 tablet by mouth three times a day as needed. - Clobetasol Propionate 0.05 % sham Apply 1 application to affected area once daily. For scalp Problem List As Of Date 09/02/2024 Noted Resolved Genital herpes [A60.00] 07/10/2012 Other instructions from you (more content not included)... Normal [facility] Comprehensive metabolic 2000 panelon 09-02-2024 Albumin [Mass/Vol] 3.9 g/dL Normal 3.9-4.9 [facility] Comment on above: Order Comment: Speci men Type: BLOOD SPECIMENOrdering Facility: [facility] Address: [address] [place] [address] Performed By: #### 2 4323-8 ####[facility] LABCLIA [id number] [place] [address] [place] ALP [Catalytic activity/Vol] 88 U/L Normal 34-123 [facility] Comment on above: Order Comment: Speci men Type: BLOOD SPECIMENOrdering Facility: [facility] Address: [address] [place] [address] Performed By: #### 2 4323-8 ####[facility] LABCLIA [id number] [place] [address] [place] ALT [Catalytic activity/Vol] 16 U/L Normal 7-38 [facility] Comment on above: Order Comment: Speci men Type: BLOOD SPECIMENOrdering Facility: [facility] Address: [address] [place] [address] Performed By: #### 2 4323-8 ####[facility] LABCLIA [id number] [facility] [address] [place] [address] [place] Anion gap [Moles/Vol] 14 mmol/L Normal 8-15 [facility] Comment on above: Order Comment: Speci men Type: BLOOD SPECIMENOrdering Facility: [facility] Address: [address] [place] [address] Performed By: #### 2 4323-8 ####[facility] LABCLIA [id number] [address] [address] [place] AST [Catalytic activity/Vol] 16 U/L Normal 13-35 [facility] Comment on above: Order Comment: Speci men Type: BLOOD SPECIMENOrdering Facility: [facility] Address: [address] [place] [address] Performed By: #### 2 4323-8 ####[facility] LABCLIA [id number] [place] [id number] [place] Bilirubin [Mass/Vol] 0.5 mg/dL Normal 0.2-1.3 [facility] Comment on above: Order Comment: Speci men Type: BLOOD SPECIMENOrdering Facility: [facility] Address: [address] [place] [address] Performed By: #### 2 4323-8 ####[facility] LABCLIA [id number] [place] [id number] [place] Calcium [Mass/Vol] 9.4 mg/dL Normal 8.5-10.2 [facility] Comment on above: Order Comment: Speci men Type: BLOOD SPECIMENOrdering Facility: [facility] Address: [address] [place] [address] Performed By: #### 2 4323-8 ####[facility] LABCLIA [id number] [address] [address] [place] Chloride [Moles/Vol] 94 mmol/L Low 98-107 [facility] Comment on above: Order Comment: Speci men Type: BLOOD SPECIMENOrdering Facility: [facility] Address: [address] [place] [address] Performed By: #### 2 4323-8 ####[facility] LABCLIA [id number] [place] [address] [place] CO2 [Moles/Vol] 25 mmol/L Normal 22-30 [facility] Comment on above: Order Comment: Speci men Type: BLOOD SPECIMENOrdering Facility: [facility] Address: [address] [place] [address] Performed By: #### 2 4323-8 ####[facility] LABIA [id number] [address] [place] Creatinine [Mass/Vol] 0.87 mg/dL Normal 0.58-0.96 [facility] Comment on above: Order Comment: Speci men Type: BLOOD SPECIMENOrdering Facility: [facility] Address: [address] [place] [address] Performed By: #### 2 4323-8 ####[facility] LABIA [id number] [address] Creatinine and Glomerular filtration rate.predicted panel (S/P/Bld) 87 mL/min/1.73m??? Normal >=60 [facility] Comment on above: Order Comment: Speci men Type: BLOOD SPECIMENOrdering Facility: [facility] Address: [address] [place] [address] Result Comment: Rhea mated Glomerular Filtration Rate (eGFR) is calculated using the 2020 CKD-EPI creatinine equation. This equation utilizes serum creatinine, sex, and age as parameters. The creatinine assay has traceable calibration to isotope dilution-mass spectrometry. Refer to KDIGO guidelines for clinical interpretation. In patients with unstable renal function, e.g. those with acute kidney injury, the eGFR may not accurately reflect actual GFR. Performed By: #### 2 4323-8 ####[facility] LABCLIA [id number] [address] [address] [place] Glucose [Mass/Vol] 113 mg/dL High 74-99 [facility] Comment on above: Order Comment: Speci men Type: BLOOD SPECIMENOrdering Facility: [facility] Address: [address] [place] [address] Result Comment: The [place] Diabetes Association (ADA) provides guidance for cutoff values for fasting glucose and random glucose. The ADA defines fasting as no caloric intake for at least 8 hours. Fasting plasma glucose results between 100 to 125 mg/dL indicate increased risk for diabetes (prediabetes). Fasting plasma glucose results greater than or equal to 126 mg/dL meet the criteria for diagnosis of diabetes. In the absence of unequivocal hyperglycemia, results should be confirmed by repeat testing. In a patient with classic symptoms of hyperglycemia or hyperglycemic crisis, random plasma glucose results greater than or equal to 200 mg/dL meet the criteria for diagnosis of diabetes. Reference: Standards of Medical Care in Diabetes 2016, [place] [employer]. Diabetes Care. 2016.39(Suppl 1). Performed By: #### 2 4323-8 ####[facility] LABCLIA [id number] [place] [id number] [place] Potassium [Moles/Vol] 4.1 mmol/L Normal 3.7-5.1 [facility] Comment on above: Order Comment: Speci men Type: BLOOD SPECIMENOrdering Facility: [facility] Address: [address] [place], [place] [address] Performed By: #### 2 4323-8 ####[facility] LABCLIA [id number] [place] [id number] [place] Protein [Mass/Vol] 8.1 g/dL High 6.3-8.0 [facility] Comment on above: Order Comment: Speci men Type: BLOOD SPECIMENOrdering Facility: [facility] Address: [address] [place], [place] [address] Performed By: #### 2 4323-8 ####[facility] LABCLIA [id number] [place] [id number] [place] Sodium [Moles/Vol] 133 mmol/L Low 136-144 [facility] Comment on above: Order Comment: Speci men Type: BLOOD SPECIMENOrdering Facility: [facility] Address: [address] [place] [address] Performed By: #### 2 4323-8 ####[facility] LABCLIA [id number] [place] [address] [place] Urea nitrogen [Mass/Vol] 13 mg/dL Normal 7-21 [facility] Comment on above: Order Comment: Speci men Type: BLOOD SPECIMENOrdering Facility: [facility] Address: [address] [place], [place] [address] [address] Performed By: #### 2 4323-8 ####[facility] LABCLIA [id number] [place] [address] [place] UA DIP, URINE (POC)on 2024 BILIRUBIN UA (POCT) Small Abnormal Negative [facility] CLARITY UA (POCT) Cloudy [facility] COLOR UA (POCT) Dark yellow [facility] GLUCOSE UA (POCT) Negative Negative mg/dL [facility] Hemoglobin Ql (U) Trace-lysed Abnormal Negative [facility] Interpretation and review of laboratory results Abnormal [facility] KETONE UA (POCT) 40 mg/dL Abnormal Negative [facility] LEUKOCYTES UA (POCT) Negative Negative [facility] NITRITE UA (POCT) Negative Negative [facility] PH UA (POCT) 5.5 4.5 - 8.0 [facility] Protein Ql (U) 100 mg/dL Abnormal Negative [facility] SPECIFIC GRAVITY UA (POCT) >=1.030 1.005 - 1.030 [facility] UROBILINOGEN UA (POCT) 0.2 Normal E.U./d L [facility] Location:[address], [place], [address] [facility] POINT OF CARE [facility] Vital Signs Date Time Vital Sign Value Performing Clinician Faci lity 11-06-2024 13:34-0400 Body temperature 99.39 [degF] Melvi Swanson MD Work Phone: [facility] 11-06-2024 13:34-0400 Body weight 91.9 kg Melvi Swanson MD Work Phone: [facility] 11-06-2024 13:34-0400 Diastolic blood pressure 72 mm[Hg] Melvi Swanson MD Work Phone: [facility] 11-06-2024 13:34-0400 Heart rate 89 /min Melvi Swanson MD Work Phone: [facility] 11-06-2024 13:34-0400 Respiratory rate 16 /min Melvi Swanson MD Work Phone: [facility] 11-06-2024 13:34-0400 SaO2% (BldA) [Mass fraction] 98 % Melvi Swanson MD Work Phone: [facility] 11-06-2024 13:34-0400 Systolic blood pressure 100 mm[Hg] Melvi Swanson MD Work Phone: [facility] 10-16-2024 14:07-0400 Body temperature 98.49 [degF] Melvi Swanson MD Work Phone: [facility] 10-16-2024 14:07-0400 Body weight 91.26 kg Melvi Swanson MD Work Phone: [facility] 10-16-2024 14:07-0400 Diastolic blood pressure 80 mm[Hg] Melvi Swanson MD Work Phone: [facility] 10-16-2024 14:07-0400 Heart rate 106 /min Melvi Swanson MD Work Phone: [facility] 10-16-2024 14:07-0400 SaO2% (BldA) [Mass fraction] 96 % Melvi Swanson MD Work Phone: [facility] 10-16-2024 14:07-0400 Systolic blood pressure 109 mm[Hg] Melvi Swanson MD Work Phone: [facility] 10-09-2024 15:02-0400 Body weight 94.17 kg Melvi Swanson MD Work Phone: [facility] 10-09-2024 15:02-0400 Diastolic blood pressure 76 mm[Hg] Melvi Swanson MD Work Phone: [facility] 10-09-2024 15:02-0400 Heart rate 86 /min Melvi Swanson MD Work Phone: [facility] 10-09-2024 15:02-0400 Respiratory rate 12 /min Melvi Swanson MD Work Phone: [facility] 10-09-2024 15:02-0400 SaO2% (BldA) [Mass fraction] 98 % Melvi Swanson MD Work Phone: [facility] 10-09-2024 15:02-0400 Systolic blood pressure 107 mm[Hg] Melvi Swanson MD Work Phone: [facility] 10-02-2024 09:09-0400 Body temperature 98.49 [degF] Melvi Swanson MD Work Phone: [facility] 10-02-2024 09:09-0400 Body weight 96.07 kg Melvi Swanson MD Work Phone: [facility] 10-02-2024 09:09-0400 Diastolic blood pressure 76 mm[Hg] Melvi Swanson MD Work Phone: [facility] 10-02-2024 09:09-0400 Heart rate 76 /min Melvi Swanson MD Work Phone: [facility] 10-02-2024 09:09-0400 Respiratory rate 16 /min Melvi Swanson MD Work Phone: [facility] 10-02-2024 09:09-0400 SaO2% (BldA) [Mass fraction] 97 % Melvi Swanson MD Work Phone: [facility] 10-02-2024 09:09-0400 Systolic blood pressure 112 mm[Hg] Melvi Swanson MD Work Phone: [facility] 09-16-2024 15:40-0400 Respiratory rate 16 /min Carlos Vicente MD Work Phone: [facility] 09-16-2024 12:46-0400 Body temperature 98.2 [degF] Carlos Vicente MD Work Phone: [facility] 09-16-2024 12:46-0400 Diastolic blood pressure 85 mm[Hg] Carlos Vicente MD Work Phone: [facility] 09-16-2024 12:46-0400 Heart rate 79 /min Carlos Vicente MD Work Phone: [facility] 09-16-2024 12:46-0400 SaO2% (BldA) [Mass fraction] 94 % Carlos Vicente MD Work Phone: [facility] 09-16-2024 12:46-0400 Systolic blood pressure 118 mm[Hg] Carlos Vicente MD Work Phone: [facility] 09-07-2024 15:17-0400 Body height 165.1 cm Carlos Vicente MD Work Phone: [facility] 09-07-2024 15:17-0400 Body mass index (BMI) [Ratio] 34.12 kg/m2 Carlos Vicente MD Work Phone: [facility] 09-07-2024 15:17-0400 Body weight 93 kg Carlos Vicente MD Work Phone: [facility] 09-02-2024 15:00-0400 Body temperature 99.81 [degF] Aurea Romario EAP COUNSELOR.HOUSE CARPENTER Work Phone: [facility] 09-02-2024 15:00-0400 Body weight 93.9 kg Aurea Romario EAP COUNSELOR.HOUSE CARPENTER Work Phone: [facility] 09-02-2024 15:00-0400 Diastolic blood pressure 72 mm[Hg] Aurea Romario EAP COUNSELOR.HOUSE CARPENTER Work Phone: [facility] 09-02-2024 15:00-0400 Heart rate 103 /min Aurea Romario EAP COUNSELOR.HOUSE CARPENTER Work Phone: [facility] 09-02-2024 15:00-0400 Respiratory rate 20 /min Aurea Romario EAP COUNSELOR.HOUSE CARPENTER Work Phone: [facility] 09-02-2024 15:00-0400 SaO2% (BldA) [Mass fraction] 96 % Aurea Doss EAP COUNSELOR.HOUSE CARPENTER Work Phone: [facility] 09-02-2024 15:00-0400 Systolic blood pressure 104 mm[Hg] Aurea Doss EAP COUNSELOR.HOUSE CARPENTER Work Phone: [facility] Encounters Encounter Date Encounter Type Care Provider Facility Start: 11-12-2024 End: 11-12-2024 Nursing evaluation of patient and report Mi Nurse Work Phone: [facility] Comment on above: Encounter for immuni zation (Primary Dx) Start: 11-12-2024 End: 11-12-2024 ambulatory MELVI SWANSON Facility:[facility] Start: 11-07-2024 End: 11-07-2024 ambulatory [facility] Comment on above: Lab results Start: 11-07-2024 End: 11-07-2024 E-mail encounter from caregiver Melvi Swanson MD Work Phone: [facility] Start: 11-06-2024 End: 11-06-2024 Subsequent hospital visit by physician [facility] Work Phone: Radiology Comment on above: Pleuritic chest pain [R07.81] Start: 11-06-2024 End: 11-06-2024 ambulatory MELVI SWANSON Facility:[facility] Start: 11-06-2024 End: 11-06-2024 Office outpatient visit 40 minutes Melvi Swanson MD Work Phone: [facility] Comment on above: Pleuritic chest pain (Primary Dx); Encounter for screening examination for other mental health and behavioral disorders; Screening for depression; Encounter for health-related screening; Encounter for immunization; Tobacco abuse; Annual physical exam; Other fatigue Start: 11-06-2024 End: 11-06-2024 ambulatory MELVI SWANSON Facility:[facility] Start: 11-06-2024 End: 11-06-2024 Patient encounter procedure Melvi Swanson MD Work Phone: [facility] Start: 10-29-2024 End: 11-29-2024 ambulatory Melvi Swanson MD Work Phone: Internal Medicine Start: 10-23-2024 ambulatory MELVI SWANSON Facility:[facility] Start: 10-23-2024 End: 10-23-2024 Subsequent hospital visit by physician Mounika [facility] ([facility]) Work Phone: [facility] Comment on above: Headache, unspecifie d headache type [R51.9] Start: 10-17-2024 End: 10-18-2024 Follow-up encounter Melvi Swanson MD Work Phone: [facility] Start: 10-16-2024 End: 10-16-2024 ambulatory MELVI SWANSON Facility:[facility] Start: 10-16-2024 End: 10-16-2024 Office outpatient visit 25 minutes Melvi Swanson MD Work Phone: [facility] Comment on above: Empyema (HCC) (Prima ry Dx); Tobacco abuse; Headache, unspecified headache type; Fatigue, unspecified type Start: 10-16-2024 End: 10-18-2024 Telephone encounter Melvi Swanson MD Work Phone: [facility] Start: 10-16-2024 End: 10-16-2024 ambulatory MELVI SWANSON Facility:[facility] Start: 10-10-2024 End: 10-10-2024 Subsequent hospital visit by physician Mounika [facility] ([facility] Work Phone: [facility] Comment on above: Chest pain on breath ing [R07.1] Start: 10-10-2024 End: 10-10-2024 ambulatory Melvi Swanson MD [facility] Phone: [facility] [place] Comment on above: Scan Empyema (HCC) (Prima ry Dx) Start: 10-10-2024 End: 10-10-2024 E-mail encounter from caregiver Melvi Swanson MD Work Phone: [facility] [place] Start: 10-10-2024 End: 10-10-2024 Patient encounter procedure Ugo Hernandez DO Work Phone: Pulmonology Start: 10-10-2024 End: 10-10-2024 Telephone encounter Mayela TENORIO Admitting Comment on above: Appointment; Dariela stuart Start: 10-09-2024 End: 10-09-2024 ambulatory MELVI SWANSON Facility:[facility] Start: 10-09-2024 End: 10-09-2024 Subsequent hospital visit by physician Jessica Pending Sale To [facility] [place] Work Phone: Radiology Comment on above: Empyema (HCC) [J86.9 ] Start: 10-09-2024 End: 10-09-2024 Office outpatient visit 40 minutes Melvi Swanson MD Work Phone: [facility] Medicine [place] Comment on above: Empyema (HCC) (Prima ry Dx) Start: 10-09-2024 End: 10-09-2024 ambulatory MELVI SWANSON Facility:[facility] Start: 10-09-2024 End: 10-09-2024 Patient encounter procedure Kun Brown MD Work Phone: Infectious Disease Start: 10-07-2024 End: 10-10-2024 Orders Only Melvi Swanson MD Work Phone: [facility] [place] Comment on above: Pleural effusion [J9 0] Start: 10-03-2024 End: 10-03-2024 E-mail encounter from caregiver Melvi Swanson MD Work Phone: [facility] [place] Start: 10-03-2024 End: 10-03-2024 Telephone encounter Melvi Swanson MD Work Phone: [facility] [place] Start: 10-03-2024 End: 10-03-2024 Subsequent hospital visit by physician Jessica Pending Sale To [facility] [place] Schaeffer Work Phone: Radiology Comment on above: Pleural effusion [J9 0] Start: 10-03-2024 End: 10-03-2024 ambulatory Melvi Swanson MD Work Phone: [facility] Medicine [place] Comment on above: Test results Start: 10-02-2024 End: 10-02-2024 Telephone encounter Melvi Swanson MD Work Phone: [facility] [place] Start: 10-02-2024 End: 10-02-2024 Office outpatient new 30 minutes Melvi Swanson MD Work Phone: [facility] [place] Comment on above: Pleural effusion (Pr imary Dx); Anemia, unspecified type; Encounter for health-related screening; Generalized weakness; Muscular deconditioning; Tobacco abuse; Fatigue, unspecified type Start: 10-02-2024 End: 10-02-2024 ambulatory MELVI SWANSON Facility:[facility] Start: 09-12-2024 End: 11-12-2024 Follow-up encounter Betzy Borges RN [facility] Comment on above: Blood Culture #1, Bl ood Culture #2 Start: 09-07-2024 End: 09-16-2024 Evaluation and management of inpatient Generic [facility] Work Phone: [facility] Medical Observation Start: 09-07-2024 End: 09-07-2024 Emergency department patient visit PHYSICIAN [facility] Start: 09-05-2024 End: 09-05-2024 Telephone encounter Prudence Ornelas APRN.CNP Work Phone: [facility] Comment on above: Results; Patient Upd ate Start: 09-03-2024 End: 11-03-2024 Follow-up encounter Prudence Ornelas APRN.CNP Work Phone: [facility] Start: 09-02-2024 End: 09-02-2024 Patient encounter procedure Aurea Romario [employer]AHHOU[employer] CARPENTER Work Phone: [facility] Comment on above: Acute right-sided ba ck pain, unspecified back location (Primary Dx) Start: 09-02-2024 End: 09-02-2024 ambulatory AUREA DOSS Facility:[facility] Procedures Date Procedure Procedure Detail Performing Clinician Start: 11-06-2024 Radiologic exam ches t 2 views Melvi Swanson MD Work Phone: Start: 11-06-2024 Adult depression scr eening assessment Melvi Swanson MD Work Phone: Start: 10-23-2024 Ct head/brain w/o co ntrast material Melvi Swanson MD Work Phone: Start: 10-10-2024 Ct angiography chest w/contrast/noncontrast Melvi Swanson MD Work Phone: Start: 10-09-2024 Radiologic exam ches t 2 views Melvi Swanson MD Work Phone: Start: 10-03-2024 Radiologic exam ches t 2 views Melvi Swanson MD Work Phone: Start: 09-16-2024 Radiologic exam ches t single view Celia Bennett HOUSE CARPENTER Work Phone: Start: 09-16-2024 Orthopantogram Russ Carmen MD Work Phone: Start: 09-16-2024 Radiologic exam ches t single view Celia Bennett HOUSE CARPENTER Work Phone: Start: 09-16-2024 Basic metabolic pane l calcium total Caro Suri Kruger HOUSE CARPENTER Work Phone: Start: 09-16-2024 Complete blood count with white cell differential, manual Caro Suri Kruger HOUSE CARPENTER Work Phone: Start: 09-15-2024 Smr prim src gram/gi emsa stain bct fungi/cell Russ Carmen MD Work Phone: Start: 09-15-2024 Radiologic exam ches t single view Claude Cosby HOUSE CARPENTER Work Phone: Start: 09-15-2024 Basic metabolic pane l calcium total Caro Suri Kruger HOUSE CARPENTER Work Phone: Start: 09-15-2024 Complete blood count with white cell differential, manual Caro Kruger HOUSE CARPENTER Work Phone: Start: 09-15-2024 Radiologic exam ches t single view Claude Cosby HOUSE CARPENTER Work Phone: Start: 09-14-2024 End: 09-14-2024 Iaad ia mult step method nos each organism Russ Carmen MD Work Phone: Start: 09-14-2024 Ct thorax w/contrast material Claude Cosby HOUSE CARPENTER Work Phone: Start: 09-14-2024 Ct thorax w/o contra st material Celia Bennett HOUSE CARPENTER Work Phone: Start: 09-14-2024 Basic metabolic pane l calcium total Caro Suri Kruger HOUSE CARPENTER Work Phone: Start: 09-14-2024 C-reactive protein Ramiro rojelio Carmen MD Work Phone: Start: 09-14-2024 Complete blood count with white cell differential, manual Caro Suri Kruger HOUSE CARPENTER Work Phone: Start: 2024 Basic metabolic pane l calcium total Caro Suri Kruger [facility] Work Phone: Start: 2024 Complete blood count with white cell differential, manual Caro Suri Kruger [facility] Work Phone: Start: 2024 Radiologic exam ches t single view Celia Bennett HOUSE CARPENTER Work Phone: Start: 09-12-2024 Radiologic exam ches t single view Celia Bennett HOUSE CARPENTER Work Phone: Start: 09-12-2024 Basic metabolic pane l calcium total Caro Suri Kruger [facility] Work Phone: Start: 09-12-2024 Complete blood count with white cell differential, manual Caro Suri Kruger [facility] Work Phone: Start: 09-11-2024 Radiologic exam ches t single view Celia Bennett HOUSE CARPENTER Work Phone: Start: 09-11-2024 Basic metabolic pane l calcium total Caro Suri Kruger [facility] Work Phone: Start: 09-10-2024 Radiologic exam ches t single view Deanna Valdes DO Work Phone: Start: 09-10-2024 CV IR CHEST TUBE INS ERTION RIGHT Deanna Valdes DO Work Phone: Start: 09-10-2024 End: 09-10-2024 Basic metabolic panel calcium total Caro Suri Kruger [facility] Work Phone: Start: 09-10-2024 Complete blood count with white cell differential, manual Caro Kruger HOUSE CARPENTER Work Phone: Start: 09-09-2024 Prothrombin time Claude Cosby HOUSE CARPENTER Work Phone: Start: 09-09-2024 Ct thorax w/o contra st material Claude Cosby HOUSE CARPENTER Work Phone: Start: 09-09-2024 Radiologic exam ches t single view Claude Cosby HOUSE CARPENTER Work Phone: Start: 09-08-2024 Radiologic exam ches t single view Chandu Mathew MD Work Phone: Start: 09-08-2024 Cell count misc body fluids w/differential count Chandu Mathew MD Work Phone: Start: 09-08-2024 End: 09-08-2024 Cul bact xcpt urine blood/stool aerobic isol Chandujordan Mathew MD Work Phone: Start: 09-08-2024 Level iv surg pathol ogy gross&microscopic exam Chandujordan Mathew MD Work Phone: Start: 09-08-2024 Ph body fluid not elsewhere specified Chandu Mathew MD Work Phone: Start: 09-08-2024 Basic metabolic pane l calcium total Kassandra Hinton MD Work Phone: Start: 09-08-2024 Complete blood count with white cell differential, manual Kassandra Hinton MD Work Phone: Start: 09-08-2024 Red blood cell morphology Kassandra Hinton MD Work Phone: Start: 09-02-2024 Urnls dip stick/tabl et rgnt auto w/o microscopy Aurea Doss APRN.HOUSE CARPENTER Work Phone: Plan of Treatment Date Care Activity Detail Author Start: 11-12-2034 Urine microalbumin profile DTaP,Tdap,Td Vaccine (2 - Td or Tdap) [facility] Start: 11-06-2025 Anxiety Screening Anxiety Screening [facility] Start: 11-06-2025 Depression Screening Depression Scre ening [facility] Start: 09-14-2025 Depression screening using PHQ-9 (Patient Health Questionnaire 9) score Depression Screening/Follow-Up (PHQ-2/9) [facility] Start: 05-16-2025 End: 05-16-2025 Nursing evaluation of patient and report 05/16/2025 3:00 PM EST Nurse Visit [facility] [address] [place] [address] Nurse, [place] [address] [place] [address] HPV #3 [facility] [place] Comment on above: HPV #3 Start: 02-06-2025 End: 02-06-2025 Patient encounter procedure [facility] [place] Comment on above: 2 Month F/U-Establis h Care 3 month follow up Start: 01-13-2025 End: 01-13-2025 Nursing evaluation of patient and report 01/13/2025 3:45 PM EDT Nurse Visit [facility] [address] [place] [address] Nurse, [place] [address] [place] [address] HPV #2 [facility] [place] Comment on above: HPV #2 Start: 12-26-2024 End: 12-26-2024 Patient encounter procedure 12/26/2024 1:00 PM EDT Office Visit Pulmonary Medicine [address] [place] [address] Bambi Almonte APRN.HOUSE CARPENTER [address] [place] [address] What are the spots n my lung Pulmonary Medicine Comment on above: What are the spots n my lung Start: 12-10-2024 HPV Vaccine (2 - 3-d ose SCDM series) HPV Vaccine (2 - 3-dose SCDM series) [facility] Start: 12-09-2024 End: 12-09-2024 Patient encounter procedure [facility] [place] Comment on above: 2 Month F/U-Establis h Care Start: 12-06-2024 End: 12-06-2024 Patient encounter procedure 12/06/2024 9:00 AM EDT Office Visit [facility] [address] [facility] [address] [place] [id number] Chandu Mathew MD [address] [place] [address] [facility] Physician [facility] Start: 12-04-2024 End: 12-04-2024 Patient encounter procedure 12/04/2024 1:00 PM EDT Office Visit [facility] [address] [facility] [address] [place] [address] Chandu Mathew MD [address] [place] [address] [facility] Physician [facility] Start: 12-03-2024 End: 12-03-2024 Patient encounter procedure 12/03/2024 8:30 AM EDT Office Visit OB/Gynecology [address] [place] [address] Brandon Parker MD [address] [place] [address] (Fax) Encounter for health-related screening [Z13.9] OB/Gynecology Comment on above: Encounter for health -related screening [Z13.9] Start: 11-26-2024 End: 11-26-2024 Patient encounter procedure 11/26/2024 2:00 PM EDT Office Visit OB/Gynecology [address] [place] [address] Prudence Hendricks APRN.CN [address] [place] [address] (Fax) Encounter for health-related screening [Z13.9] OB/Gynecology Comment on above: Encounter for health -related screening [Z13.9] Start: 11-25-2024 Influenza vaccination [facility] Start: 11-18-2024 End: 11-18-2024 Patient encounter procedure 11/18/2024 2:00 PM EDT Office Visit OB/Gynecology [address] [place] [address] Jeny Talley APRN.HOUSE CARPENTER [address] [place] [address] Encounter for health-related screening [Z13.9] OB/Gynecology Comment on above: Encounter for health -related screening [Z13.9] Start: 11-12-2024 End: 11-12-2024 Nursing evaluation of patient and report 11/12/2024 3:30 PM EDT Nurse Visit [facility] [place] [address] [place] [address] Nurse, [place] [address] [place] [address] nurse visit vaccines DTAP, HPV and Prevnar 20 [facility] [place] Comment on above: nurse visit vaccines DTAP, HPV and Prevnar 20 Start: 11-06-2024 End: 02-04-2025 C reactive protein [Mass/volume] in Serum or Plasma [facility] Comment on above: Expected: 11/06/2024 , Expires: 02/04/2025 Start: 11-06-2024 End: 02-04-2025 Chronic hepatitis differentiation between hepatitis B and C virus panel - Serum or Plasma [facility] Comment on above: Expected: 11/06/2024 , Expires: 02/04/2025 Start: 11-06-2024 End: 02-04-2025 Ferritin [Mass/volume] in Serum or Plasma [facility] Comment on above: Expected: 11/06/2024 , Expires: 02/04/2025 Start: 11-06-2024 End: 02-04-2025 Hemoglobin A1c in Blood [facility] Comment on above: Expected: 11/06/2024 , Expires: 02/04/2025 Start: 11-06-2024 End: 02-04-2025 HIV 1+2 Ab [Presence] in Serum or Plasma by Immunoassay [facility] Comment on above: Expected: 11/06/2024 , Expires: 02/04/2025 Start: 11-06-2024 End: 02-04-2025 Iron and Iron binding capacity panel - Serum or Plasma [facility] Comment on above: Expected: 11/06/2024 , Expires: 02/04/2025 Start: 11-06-2024 End: 02-04-2025 LIPID PANEL, NONFASTING [facility] Comment on above: Expected: 11/06/2024 , Expires: 02/04/2025 Start: 11-06-2024 End: 02-04-2025 Renal function 2000 panel - Serum or Plasma [facility] Work Phone: Comment on above: Expected: 11/06/2024 , Expires: 02/04/2025 Start: 11-06-2024 End: 02-04-2025 TSH W/REFLEX FT4 [facility] Comment on above: Expected: 11/06/2024 , Expires: 02/04/2025 Start: 11-06-2024 End: 11-06-2024 Patient encounter procedure [facility] [place] Comment on above: follow up Start: 11-04-2024 End: 11-04-2024 ambulatory 11/04/2024 2:00 PM EDT OT/PT/Speech Visit [facility] [address] [place] [address] Jaren Valente PT Strength [facility] Comment on above: Strength Start: 10-23-2024 End: 10-23-2024 Patient encounter procedure 10/23/2024 3:40 PM EDT Appointment Cat Scan [address] [place] [address] Headache, unspecified headache type [R51.9] Cat Scan Comment on above: Headache, unspecifie d headache type [R51.9] Start: 10-23-2024 End: 12-17-2024 CT Chest WO contrast CT Chest Without Contrast Imaging Routine Parapneumonic effusion Expected: 10/23/2024 (Approximate), Expires: 12/17/2024 [facility] Work Phone: Comment on above: Expected: 10/23/2024 (Approximate), Expires: 12/17/2024 Start: 10-21-2024 End: 10-21-2024 ambulatory 10/21/2024 8:30 AM EDT OT/PT/Speech Visit [facility] [address] [place] [address] Layo Mello, PT [address] [place] [address] Pleural effusion [J90]; Generalized weakness [R53.1]; Muscular deconditioning [R29.898] [facility] Comment on above: Pleural effusion [J9 0]; Generalized weakness [R53.1]; Muscular deconditioning [R29.898] Start: 10-16-2024 End: 01-15-2025 C reactive protein [Mass/volume] in Serum or Plasma [facility] Comment on above: Expected: 10/16/2024 , Expires: 01/15/2025 Start: 10-16-2024 End: 01-15-2025 Magnesium [Mass/volume] in Serum or Plasma [facility] Comment on above: Expected: 10/16/2024 , Expires: 01/15/2025 Start: 10-16-2024 End: 10-16-2024 Patient encounter procedure 10/16/2024 2:00 PM EDT Office Visit [facility] [address] [place] [address] Melvi Swanson MD [address] [place] [address] 1 week follow up Family [facility] Comment on above: 1 week follow up Start: 10-16-2024 End: 01-15-2025 Renal function 2000 panel - Serum or Plasma [facility] Work Phone: Comment on above: Expected: 10/16/2024 , Expires: 01/15/2025 Start: 10-11-2024 End: 10-11-2024 Admission to same day surgery center 10/11/2024 4:00 PM EDT - 10/11/2024 5:00 PM EDT Surgery Admitting [address] [address] [place]ksey [place]varado [place] [id number] [place] [id number] THORACENTESIS NEEDLE OR CATHETER ASPIRATION OF THE PLEURAL SPACE W IMAGING GUIDANCE Admitting Comment on above: THORACENTESIS NEEDLE OR CATHETER ASPIRATION OF THE PLEURAL SPACE W IMAGING GUIDANCE Start: 10-11-2024 Subsequent hospital visit by physician 10/11/2024 4:00 PM EDT Hospital Encounter Admitting [address] [address] [place] [address] [place] [id number] Pleural effusion [J90] Admitting Comment on above: Pleural effusion [J9 0] Start: 10-11-2024 End: 10-11-2024 Thoracentesis needle/cath pleura w/imaging THORACENTESIS NEEDLE OR CATHETER ASPIRATION OF THE PLEURAL SPACE W IMAGING GUIDANCE Pleural effusion 10/11/2024 4:00 PM EDT PULM LAB 3 Start: 10-11-2024 End: 10-11-2024 Patient encounter procedure 10/11/2024 1:45 PM EDT Office Visit Pulmonary Medicine [address] [place] [id number] Gloria Crowell APRN.HOUSE CARPENTER [address] [address] Pleural Effusion [facility]monary Medicine Comment on above: Pleural Effusion Start: 10-09-2024 End: 10-09-2024 Patient encounter procedure 10/09/2024 3:00 PM EDT Office Visit [facility] [place] [address] [place] [address] Melvi Swanson MD [address] [place], [place] [id number] 2 week follow up [facility] [place] Comment on above: 2 week follow up Start: 10-09-2024 End: 01-08-2025 C reactive protein [Mass/volume] in Serum or Plasma [facility] Comment on above: Expected: 10/09/2024 , Expires: 01/08/2025 Start: 10-09-2024 End: 01-08-2025 Comprehensive metabolic 2000 panel - Serum or Plasma [facility] Work Phone: Comment on above: Expected: 10/09/2024 , Expires: 01/08/2025 Start: 10-09-2024 End: 01-08-2025 Erythrocyte sedimentation rate [facility] Comment on above: Expected: 10/09/2024 , Expires: 01/08/2025 Start: 10-09-2024 End: 01-08-2025 Magnesium [Mass/volume] in Serum or Plasma [facility] Comment on above: Expected: 10/09/2024 , Expires: 01/08/2025 Start: 10-09-2024 End: 01-08-2025 Phosphate [Mass/volume] in Serum or Plasma [facility] Comment on above: Expected: 10/09/2024 , Expires: 01/08/2025 Start: 10-02-2024 End: 01-01-2025 C reactive protein [Mass/volume] in Serum or Plasma C-REACTIVE PROTEIN Lab Routine Pleural effusion Expected: 10/02/2024, Expires: 01/01/2025 [facility] Comment on above: Expected: 10/02/2024 , Expires: 01/01/2025 Start: 10-02-2024 End: 01-01-2025 CBC W Auto Differential panel - Blood COMPLETE BLOOD COUNT AND DIFFERENTIAL Lab Routine Anemia, unspecified type Fatigue, unspecified type Expected: 10/02/2024, Expires: 01/01/[address] [facility] Work Phone: Comment on above: Expected: 10/02/2024 , Expires: 01/01/2025 Start: 10-02-2024 End: 01-01-2025 Erythrocyte sedimentation rate SEDIMENTATION RATE, WESTERGREN Lab Routine Pleural effusion Expected: 10/02/2024, Expires: 01/01/2025 [facility] Comment on above: Expected: 10/02/2024 , Expires: 01/01/2025 Start: 10-02-2024 End: 01-01-2025 Renal function 2000 panel - Serum or Plasma RENAL FUNCTION PANEL Lab Routine Pleural effusion Fatigue, unspecified type Expected: 10/02/2024, Expires: 01/01/2025 [facility] Comment on above: Expected: 10/02/2024 , Expires: 01/01/2025 Start: 2024 Screening for malign ant neoplasm of breast [facility] Start: 09-02-2024 End: 12-02-2024 Comprehensive metabolic 2000 panel - Serum or Plasma [facility] Work Phone: Comment on above: Expected: 09/02/2024 , Expires: 12/02/2024 Start: 11-26-2023 Covid-19 Vaccine ( season) Covid-19 Vaccine () [facility] Start: 07-11-2017 Screening for malign ant neoplasm of cervix Cervical Cancer Screening [facility] Start: 2014 Screening for malign ant neoplasm of cervix [facility] Start: 09-14-2011 HPV Vaccine (1 - 3-d ose SCDM series) HPV Vaccine (1 - 3-dose SCDM series) [facility] Start: 2005 Screening for malign ant neoplasm of cervix Pap Smear [facility] Start: 09-14-2003 Hepatitis B Vaccine (1 of 3 - 19+ 3-dose series) Hepatitis B Vaccine (1 of 3 - 19+ 3-dose series) [facility] Start: 09-14-2003 Pneumococcal vaccination Pneum ococcal Vaccine (1 of 2 - PCV) [facility] Start: 09-14-2003 Pneumococcal Vaccine : Ped or At-Risk (1 of 2 - PCV) Pneumococcal Vaccine: Ped or At-Risk (1 of 2 - PCV) [facility] Start: 09-14-2003 Urine microalbumin profile DTaP,Tdap,Td Vaccine (1 - Tdap) [facility] Start: 2002 Anxiety Screening Anxiety Screening [facility] Start: 2002 Depression Screening Depression Scre ening [facility] Start: 2002 Hepatitis C screening Hepatitis C Sc reening [facility] Start: 2002 HIV screening HIV Screening [facility] Start: 09-14-1987 History and physical examination, annual for health maintenance Wellness Visit [facility] Start: 1984 Tetanus vaccination Tetanus: Every 1 0yrs [facility] 9vhpv vacc 2/3 dose sched im use HPV VACCINE, 9-VALENT (GARDASIL 9) Immunization/Injection Routine Encounter for immunization Annual physical exam Ordered: 11/06/2024 [facility] Comment on above: Ordered: 11/06/2024 Bacteria identified in Sputum by Aerobe culture Sputum Aerobic Culture Microbiology Routine 09/15/2024 6:42 PM EDT [facility] Work Phone: End: 11-15-2025 CT Head WO contrast CT BRAIN WO IVCON Radiology STAT Headache, unspecified headache type 1 Occurrences starting 10/16/2024 until 11/15/2025 [facility] Comment on above: 1 Occurrences starti ng 10/16/2024 until 11/15/2025 End: 11-28-2025 DBT Breast - bilateral screening VAHE SCREENING W PAU Radiology Routine Encounter for screening mammogram for breast cancer 1 Occurrences starting 10/29/2024 until 11/28/[address] [facility] Work Phone: Comment on above: 1 Occurrences starti ng 10/29/2024 until 11/28/2025 Pneumococcal vaccination PNEUMOC OCCAL VACCINE, 20 VALENT (PREVNAR 20) Immunization/Injection Routine Encounter for immunization Annual physical exam Ordered: 11/06/2024 [facility] Comment on above: Ordered: 11/06/2024 Tdap vaccine 7 yrs/> im TDAP VAC CINE, AGE 7+ YR (ADACEL, BOOSTRIX) Immunization/Injection Routine Encounter for immunization Annual physical exam Ordered: 11/06/2024 [facility] Comment on above: Ordered: 11/06/2024 US THORACENTESIS (PO C) FOR PULM USE ONLY US THORACENTESIS (POC) FOR PULM USE ONLY Imaging Diagnostic Routine Pleural effusion Ordered: 10/03/[address] [facility] Work Phone: Comment on above: Ordered: 10/03/2024 End: 11-01-2025 US Upper extremity vein - bilateral US DVT UPPER BILATERAL Radiology Routine Pleural effusion Anemia, unspecified type Generalized weakness Fatigue, unspecified type 1 Occurrences starting 10/02/2024 until 11/01/2025 [facility] Comment on above: 1 Occurrences starti ng 10/02/2024 until 11/01/2025 US Upper extremity v ein - bilateral US DVT UPPER BILATERAL Radiology Routine Pleural effusion Anemia, unspecified type Generalized weakness Fatigue, unspecified type 10/07/2024 5:[address] [facility] Work Phone: End: 10-03-2025 US Upper extremity veins - bilateral US ARM VEIN DVT [facility] Vascular Lab Routine Pleural effusion Generalized weakness Muscular deconditioning Fatigue, unspecified type 1 Occurrences starting 10/03/2024 until 10/03/2025 [facility] Comment on above: 1 Occurrences starti ng 10/03/2024 until 10/03/2025 End: 11-01-2025 XR Chest PA and Lateral XR CHEST 2V FRONTAL/LAT Radiology Routine Pleural effusion 1 Occurrences starting 10/02/2024 until 11/01/2025 [facility] Comment on above: 1 Occurrences starti ng 10/02/2024 until 11/01/2025 Immunizations Immunization Date Immunization Notes Care Provider Oscar quevedo 11-12-2024 Human Papillomavirus 9-valent vaccine La Nurse Work Phone: [facility] 11-12-2024 pneumococcal conjuga te (PCV20) vaccine, 20 valent (PREVNAR 20) La Nurse Work Phone: [facility] 11-12-2024 tetanus toxoid, redu toby diphtheria toxoid, and acellular pertussis vaccine, adsorbed La Nurse Work Phone: [facility] NEGATED: Highlighted row has not occurred!11-06-2024 Human Papillomavirus 9-valent vaccine Melvi Swanson MD Work Phone: [facility] Comment on above: Deferred: Postponed NEGATED: Highlighted row has not occurred!11-06-2024 pneumococcal conjugate (PCV20) vaccine, 20 valent (PREVNAR 20) Melvi Swanson MD Work Phone: [facility] Comment on above: Deferred: Postponed NEGATED: Highlighted row has not occurred!11-06-2024 tetanus toxoid, reduced diphtheria toxoid, and acellular pertussis vaccine, adsorbed Melvi Swanson MD Work Phone: [facility] Comment on above: Deferred: Postponed Payers Date Payer Category Payer Blue [employer] Blue Shield [id number] 2022 Unknown [id number] 1985 Unknown [id number] 1985 Unknown [id number] Social History Date Type Detail Facility Start: 08-14-2013 End: 10-02-2024 Tobacco smoking status NHIS Smokes tobacco daily [facility] History of tobacco use Cigarette Smoker C [facility] Start: 08-14-2013 End: 10-02-2024 Cigarettes smoked current (pack per day) - Reported 1 [facility] Start: 08-14-2013 End: 09-07-2024 Tobacco use and exposure Smokeless tobacco non-user [facility] Start: 11-10-2021 End: 10-16-2024 Alcoholic beverage intake Current non-drinker of alcohol (finding) [facility] Start: 04-16-2018 End: 10-02-2024 Tobacco use panel [facility] Start: 02-26-2012 Adult Depression Scr eening Assessment 0 [facility] Start: 1985 Sex assigned at Not on file C [facility] Start: 09-11-2024 Alcoholic beverage intake Life time non-drinker (finding) [facility] Has the [employer], or [employer] threatened to shut off services in your home in past 12Mo No [facility] (I/We) worried wheth er (my/our) food would run out before (I/we) got money to buy more. Never true [facility] Start: 10-02-2024 Tobacco use and exposure User of smokeless tobacco [facility] Start: 10-02-2024 Tobacco Comment Willing to cut down to half pack per da [facility] Are you now , , , , never or living with a partner? Never [facility] How often to you hav e a drink containing alcohol? Never [facility] How hard is it for y ou to pay for the very basics like food, housing, medical care, and heating Somewhat hard [facility] Do you feel stress - tense, restless, nervous, or anxious, or unable to sleep at night because your mind is troubled all the time - these days [OSQ] Not at all [facility] In the past 12 month s, was there a time when you were not able to pay the mortgage or rent on time? Yes [facility] Functional Status Date Assessment Result Facility 11-05-2024 Total score [AUDIT-C] 0 11/06/19 1:20 PM EDT [employer] [facility] 11-05-2024 How often to you hav e a drink containing alcohol? Never 11/05/2024 1:20 PM EDT User, Kvng Never [facility] 11-05-2024 Functional status Patient does n ot drink 11/05/2024 1:20 PM EDT User, Kvng Patient does not drink [facility] 11-05-2024 How often do you hav e 6 or more drinks on 1 occasion? Never 11/05/2024 1:20 PM EDT [employer] Never [facility] 08-14-2013 Are you deaf, or do you have serious difficulty hearing No 08/14/2013 3:57 PM EDT Bev Finch MA No [facility] 08-14-2013 Are you blind, or do you have serious difficulty seeing, even when wearing glasses No 08/14/2013 3:57 PM EDT Bev Finch MA No [facility] 08-14-2013 Do you have serious difficulty walking or climbing stairs No 08/14/2013 3:57 PM EDT Bev Finch MA No [facility] 08-14-2013 Do you have difficul ty dressing or bathing No 08/14/2013 3:57 PM EDT Bev Finch MA No [facility] 08-14-2013 Because of a physica l, mental, or emotional condition, do you have difficulty doing errands alone such as visiting a physician's office or shopping No 08/14/2013 3:57 PM EDT Bev Finch MA No [facility] Mental Status Date Assessment Result Facility 08-14-2013 Because of a physica l, mental, or emotional condition, do you have serious difficulty concentrating, remembering, or making decisions No 08/14/2013 3:57 PM EDT Bev Finch MA No [facility] Clinical Notes 09-02-2024 to 11-12-2024 DENISE ARTHUR - 11/12/2024 3:49 PM EDTTelephone Encounter - Melvi Swanson MD - 11/07/2024 8:13 PM EDTTelephone Encounter - Melvi Swanson MD - 11/07/2024 8:13 PM EDTPatient Instructions Note Date & Type Note Facility 11-12-2024 Note HNO ID: [id number] Author: ?, ?, ? Service: ? Author Type: Licensed Nurse Type: Progress Notes Filed: 11/12/2024 15:50 Note Text: Patient presents for TDAP, HPV, and Pneumococcal vaccines. Denies any problems at this time. Tolerated injections well. Denise Arthur LPN [facility] 11-12-2024 History of Present illness Narrative Patient presents for TDAP, HPV, and Pneumococcal vaccines. Denies any problems at this time. Tolerated injections well. Denise Arthur LPN documented in this encounter [facility] 11-07-2024 Telephone encounter Note HLD, Prediabetes, recommending lifestyle changes and will start metformin if patient would like. Also will refer to holistic health practitioner if patient agreeable. [facility] 11-07-2024 Miscellaneous Notes HLD, Prediabetes, recommending lifestyle changes and will start metformin if patient would like. Also will refer to holistic health practitioner if patient agreeable. documented in this encounter [facility] 11-06-2024 History of Present illness Narrative Radiology Service Progress Note PATIENT NAME: Gricel Patel DATE OF SERVICE: November 06, 2024 TIME: 3:07 PM PATIENT IDENTITY VERIFICATION COMPLETED USING TWO (2) IDENTIFIERS: Name and Date of confirmed by patient verbally. FALL SCREENING: Has the patient had 2 falls in the last year or 1 fall with injury or currently using an Ambulatory Assistive Device (Walker, Cane, Wheelchair, Crutches, etc.)? No PATIENT GENDER DATA: Assigned female at . status: : No status: NO. PATIENT RELEVANT IMPLANT DATA REVIEWED: Yes PATIENT PRESENTS WITH AN IMPLANTABLE OR ATTACHED AGRICULTURE CONSULTANT: No RADIOLOGY DEPARTMENT: General X-ray: Exam(s) Completed: Chest X-Ray PERIPHERAL IV DATA: Not applicable SIGNED BY: RT Ani(Zenia) November 06, 2024 3:07 PM documented in this encounter [facility] 11-06-2024 Note HNO ID: [id number] Author: IVONNE MIX RT(R) Service: ? Author Type: Technologist Type: Progress Notes Filed: 11/06/2024 15:15 Note Text: Radiology Service Progress Note PATIENT NAME: Gricel Patel DATE OF SERVICE: November 06, 2024 TIME: 3:07 PM PATIENT IDENTITY VERIFICATION COMPLETED USING TWO (2) IDENTIFIERS: Name and Date of confirmed by patient verbally. FALL SCREENING: Has the patient had 2 falls in the last year or 1 fall with injury or currently using an Ambulatory Assistive Device (Walker, Cane, Wheelchair, Crutches, etc.)? No PATIENT GENDER DATA: Assigned female at . status: : No status: NO. PATIENT RELEVANT IMPLANT DATA REVIEWED: Yes PATIENT PRESENTS WITH AN IMPLANTABLE OR ATTACHED AGRICULTURE CONSULTANT: No RADIOLOGY DEPARTMENT: General X-ray: Exam(s) Completed: Chest X-Ray PERIPHERAL IV DATA: Not applicable SIGNED BY: DAVIS Law) November 06, 2024 3:07 PM [facility] 11-06-2024 Instructions Melvi Swanson MD - 11/06/2024 2:03 PM EDT . I would recommend working on a healthy diet and exercise (150 minutes per week of moderate exercise or 75 minutes of intense exercise). I have attached information below regarding a mediterranean diet, which is a diet that has been shown to improve heart health and cholesterol levels. See lung cancer screening clinic and gynecology. Please get xray and blood work. PRACTICAL SUGGESTIONS TO INCORPORATE MEDITERRANEAN DIET CATEGORY CONSUME AVOID Fruits and vegetables Wide variety of whole fruits and vegetables; try for at least 7-10 servings per day Vegetables prepared in butter or cream sauce High-fiber breads, cereals, and pasta Whole grain bread and cereal, bran, brown rice Sweets, white bread, biscuits, breadsticks, and other refined carbohydrates Protein that is low in saturated fat Lean cuts of meat (fat trimmed) or poultry (no skin); low-fat dairy foods (skim mild, yogurt) Carbajal, sausage, other processed or high-fat meat, milk or cheese that is not low-fat, ice cream Fish or other source of omega-3 fatty acids, at least 1 or 2 times per week [place], trout, jarvis, water-packed tuna, mackerel (or fish oil supplement); flaxseed, spinach, walnuts Fried fish ( except when iniguez fried in olive oil) Healthy oils for cooking, salad dressing, and other uses Extra-virgin olive oil, canola oil, flaxseed oil (high-oleic sunflower or safflower oil may also be an option) [place]-6 oils, (corn, sunflower, safflower, soybean, peanut) Peas, beans, legumes, and nuts Soybeans, lentils, or any kind of peas, beans, or legumes; tree nuts (eg. Almonds,pecans, walnuts, [place] nuts) Heavily salted or honey-roasted nuts; stale or rancid nuts Alcohol One 5-oz glass of wine, a 12-oz beer, or a 1.5oz drink containing distilled spirits with the evening meal Limit to no more than 1 drink daily for women, 2 drinks daily for men Fat Emphasize whole, natural foods as above; look for 'trans-fatty acid -free margarine and snack foods Fast food, fried food, margarine, chips, crackers, baked goods, doughnuts, any processed food made with partially hydrogenated oil documented in this encounter [facility] 11-06-2024 Note HNO ID: [id number] Author: MELVI SWANSON MD Service: ? Author Type: Physician Type: Progress Notes Filed: 11/06/2024 19:37 Note Text: Family Medicine OUTPATIENT VISIT November 06, 2024 CC: pleuritic chest pain HPI: 39 year old female patient with a history of Empyema and fatigue with deconditioning s/p hospital stay. Presenting for follow up. Not Shortness of Breath but feeling she cannot take a full deep breath due to a sharp pain at her right lower back where chest tube was when she takes a deep breath. No fever. Some chills x 3-4 days. Fatigue is so so. Has not seen physical therapy yet. Missed her appointment. Able to go to the store now but is tired thereafter. Did go on a 1 hr 45 minute shopping trip. Has 2-3 days left of augmentin. Smoking 5 cigarettes per day now and quit vaping completely. Is getting dental work tomorrow, having 5 teeth removed. Smoked since age 15. Pack a day average. Review of Systems PAIN ASSESSMENT: Negative for pain, history of chronic pain, or current treatment for a chronic pain condition. GENERAL: No weight loss, or fevers HEENT: Negative for frequent or significant headaches RESPIRATORY: Negative for cough, wheezing, shortness of breath CARDIOVASCULAR: Negative for chest pain, palpitations, PND or orthopnea GI: No nausea, vomiting, or diarrhea or abdominal pain. No NJ bleeding or melana : No history of dysuria, frequency, urgency, or change in urine appearance NEURO: No history of headaches, numbness, weakness, or changes to vision or hearing Health maintenance: Hepatitis C Screening Never done HIV Screening Never done DTaP,Tdap,Td Vaccine(1 - Tdap) Never done Hepatitis B Vaccine(1 of 3 - 19+ 3-dose series) Never done Pneumococcal Vaccine(1 of 2 - PCV) Never done HPV Vaccine(1 - 3-dose SCDM series) Never done Cervical Cancer Screening due on 07/11/2017 Mammogram Screening Never done Allergies: ALLERGIES Allergen Reactions Vicodin [Hydrocodon* GI Upset Patient c/o nausea and dizziness Medications: nicotine (NICODERM) 14 mg/24 hr Apply 1 patch as directed every 24 hours. amoxicillin-clavulanate potassium (AUGMENTIN) 875-125 mg per tablet Take 1 tablet by mouth every 12 hours for 3 days. Past Medical History: PAST MEDICAL HISTORY Diagnosis Date Infectious mononucleosis Mononucleosis Tobacco abuse since age 15, pack a day Urinary tract infection, site not specified Social History: SOCIAL HISTORY[1] Family History: Family History Problem Relation Age of Onset Heart Paternal Grandmother HEART PROBLEMS Stroke Maternal Grandmother Diabetes Maternal Grandfather Diabetes Paternal Grandmother Breast Cancer Paternal Aunt None Father None Sister None Brother None Mother BP 100/72 Pulse 89 Temp 37.4 ?C (99.4 ?F) (Temporal) Resp 16 Wt 91.9 kg (202 lb 9.6 oz) LMP 03/11/2024 (Approximate) SpO2 98% General: Awake, alert, not in acute distress LIFE TRAINER: Answering questions appropriately. No abnormal posturing or positioning. Speech is normal. Strength grossly intact. RESP: Diminished Right lower without added sounds. No collections beneath well healed wound at site of right chest drain, no drainage or erythema. No increased WOB on room air. CVS: RRR, No murmur. Pulses 2+. GI: Abdomen is soft, non distended, non tender. No masses or hepatomegaly appreciated. Skin/Other: No rashes or lesions. HEENT: pupils equal Extremities: No peripheral edema, swelling or erythema of lower extremities. Labs: Reviewed the following: Pertinent labs as outlined above Latest Ref Rng 10/16/2024 WBC 3.70 - 11.00 k/uL 7.72 RBC 3.90 - 5.20 m/uL 5.06 Hemoglobin 11.5 - 15.5 g/dL 14.8 Hematocrit 36.0 - 46.0 % 45.5 MCV 80.0 - 100.0 fL 89.9 MCH 26.0 - 34.0 pg 29.2 MCHC 30.5 - 36.0 g/dL 32.5 RDW-CV 11.5 - 15.0 % 13.8 Platelet Count 150 - 400 k/uL 402 (H) MPV 9.0 - 12.7 fL 9.3 Neut% % 68.1 Abs Neut (ANC) 1.45 - 7.50 k/uL 5.26 Lymph% % 25.9 Abs Lymph 1.00 - 4.00 k/uL 2.00 [place]% % 4.7 Abs [place] <0.87 k/uL 0.36 Eosin% % 0.1 Abs Eosin <0.46 k/uL <0.03 Baso% % 0.8 Abs Baso <0.11 k/uL 0.06 Immature Gran % % 0.4 IMMATURE GRANS (ABS) <0.10 k/uL 0.03 NRBC /100 WBC 0.0 Absolute nRBC <0.01 k/uL <0.01 DTYPE Auto Albumin 3.9 - 4.9 g/dL 4.4 Calcium 8.5 - 10.2 mg/dL 10.3 (H) Phosphorus 2.7 - 4.8 mg/dL 3.6 Glucose 74 - 99 mg/dL 111 (H) BUN 7 - 21 mg/dL 14 Creatinine 0.58 - 0.96 mg/dL 0.90 Sodium 136 - 144 mmol/L 137 Potassium 3.7 - 5.1 mmol/L 4.4 Chloride 98 - 107 mmol/L 97 (L) CO2 22 - 30 mmol/L 25 Anion Gap 8 - 15 mmol/L 15 eGFR >=60 mL/min/1.73m? 83 Magnesium 1.7 - 2.3 mg/dL 2.2 CRP <0.9 mg/dL <0.3 WSR 0 - 20 mm/hr 20 Legend: (H) High (L) Low Imaging: Reviewed the following: NA Assessment/Plan: ASSESSMENT/PLAN: 1. Pleuritic chest pain - ICD9: 786.52, ICD10: R07.81 (primary diagnosis) Unclear etiology, controlled S/p empyema, finishing wojciech (more content not included)... [facility] 11-06-2024 History of Present illness Narrative Images from the original note were not included. Family Medicine OUTPATIENT VISIT November 06, 2024 CC: pleuritic chest pain HPI: 39 year old female patient with a history of Empyema and fatigue with deconditioning s/p hospital stay. Presenting for follow up. Not Shortness of Breath but feeling she cannot take a full deep breath due to a sharp pain at her right lower back where chest tube was when she takes a deep breath. No fever. Some chills x 3-4 days. Fatigue is so so. Has not seen physical therapy yet. Missed her appointment. Able to go to the store now but is tired thereafter. Did go on a 1 hr 45 minute shopping trip. Has 2-3 days left of augmentin. Smoking 5 cigarettes per day now and quit vaping completely. Is getting dental work tomorrow, having 5 teeth removed. Smoked since age 15. Pack a day average. Review of Systems PAIN ASSESSMENT: Negative for pain, history of chronic pain, or current treatment for a chronic pain condition. GENERAL: No weight loss, or fevers HEENT: Negative for frequent or significant headaches RESPIRATORY: Negative for cough, wheezing, shortness of breath CARDIOVASCULAR: Negative for chest pain, palpitations, PND or orthopnea GI: No nausea, vomiting, or diarrhea or abdominal pain. No [place] bleeding or melana : No history of dysuria, frequency, urgency, or change in urine appearance NEURO: No history of headaches, numbness, weakness, or changes to vision or hearing Health maintenance: Hepatitis C Screening Never done HIV Screening Never done DTaP,Tdap,Td Vaccine(1 - Tdap) Never done Hepatitis B Vaccine(1 of 3 - 19+ 3-dose series) Never done Pneumococcal Vaccine(1 of 2 - PCV) Never done HPV Vaccine(1 - 3-dose SCDM series) Never done Cervical Cancer Screening due on 07/11/2017 Mammogram Screening Never done Allergies: ALLERGIES Allergen Reactions Vicodin [Hydrocodon* GI Upset Patient c/o nausea and dizziness Medications: nicotine (NICODERM) 14 mg/24 hr Apply 1 patch as directed every 24 hours. amoxicillin-clavulanate potassium (AUGMENTIN) 875-125 mg per tablet Take 1 tablet by mouth every 12 hours for 3 days. Past Medical History: PAST MEDICAL HISTORY Diagnosis Date Infectious mononucleosis Mononucleosis Tobacco abuse since age 15, pack a day Urinary tract infection, site not specified Social History: SOCIAL HISTORY[1] Family History: Family History Problem Relation Age of Onset Heart Paternal Grandmother HEART PROBLEMS Stroke Maternal Grandmother Diabetes Maternal Grandfather Diabetes Paternal Grandmother Breast Cancer Paternal Aunt None Father None Sister None Brother None Mother BP 100/72 Pulse 89 Temp 37.4 C (99.4 F) (Temporal) Resp 16 Wt 91.9 kg (202 lb 9.6 oz) LMP 03/11/2024 (Approximate) SpO2 98% General: Awake, alert, not in acute distress LIFE TRAINER: Answering questions appropriately. No abnormal posturing or positioning. Speech is normal. Strength grossly intact. RESP: Diminished Right lower without added sounds. No collections beneath well healed wound at site of right chest drain, no drainage or erythema. No increased WOB on room air. CVS: RRR, No murmur. Pulses 2+. GI: Abdomen is soft, non distended, non tender. No masses or hepatomegaly appreciated. Skin/Other: No rashes or lesions. HEENT: pupils equal Extremities: No peripheral edema, swelling or erythema of lower extremities. Labs: Reviewed the following: Pertinent labs as outlined above Latest Ref Rn 10/16/2024 WBC 3.70 - 11.00 k/uL 7.72 RBC 3.90 - 5.20 m/uL 5.06 Hemoglobin 11.5 - 15.5 g/dL 14.8 Hematocrit 36.0 - 46.0 % 45.5 MCV 80.0 - 100.0 fL 89.9 MCH 26.0 - 34.0 pg 29.2 MCHC 30.5 - 36.0 g/dL 32.5 RDW-CV 11.5 - 15.0 % 13.8 Platelet Count 150 - 400 k/uL 402 (H) MPV 9.0 - 12.7 fL 9.3 Neut% % 68.1 Abs Neut (ANC) 1.45 - 7.50 k/uL 5.26 Lymph% % 25.9 Abs Lymph 1.00 - 4.00 k/uL 2.00 [place]% % 4.7 Abs [place] <0.87 k/uL 0.36 Eosin% % 0.1 Abs Eosin <0.46 k/uL <0.03 Baso% % 0.8 Abs Baso <0.11 k/uL 0.06 Immature Gran % % 0.4 IMMATURE GRANS (ABS) <0.10 k/uL 0.03 NRBC /100 WBC 0.0 Absolute nRBC <0.01 k/uL <0.01 DTYPE Auto Albumin 3.9 - 4.9 g/dL 4.4 Calcium 8.5 - 10.2 mg/dL 10.3 (H) Phosphorus 2.7 - 4.8 mg/dL 3.6 Glucose 74 - 99 mg/dL 111 (H) BUN 7 - 21 mg/dL 14 Creatinine 0.58 - 0.96 mg/dL 0.90 Sodium 136 - 144 mmol/L 137 Potassium 3.7 - 5.1 mmol/L 4.4 Chloride 98 - 107 mmol/L 97 (L) CO2 22 - 30 mmol/L 25 Anion Gap 8 - 15 mmol/L 15 eGFR >=60 mL/min/1.73m 83 Magnesium 1.7 - 2.3 mg/dL 2.2 CRP <0.9 mg/dL <0.3 WSR 0 - 20 mm/hr 20 Legend: (H) High (L) Low Imaging: Reviewed the following: NA Assessment/Plan: ASSESSMENT/PLAN: 1. Pleuritic chest pain - ICD9: 786.52, ICD10: R07.81 (primary diagnosis) Unclear etiology, controlled S/p empyema, finishing treatment. Discussed need to return if having fevers, advised to measure temp formally if having any chills and present for eval if febrile. Will reevaluate CBC, inflammatory markers and CXR - XR CHEST 2V FRONTAL/LAT - RENAL FUNCTION PANEL - COMPLETE BLOOD COUNT - C-REACTIVE PROTEIN - SEDIMENTATION RATE, WESTERGREN 2. Encounter for screening examination for other mental health and behavioral disorders - ICD9: V79.8, ICD10: Z13.39 neg - ANXIETY SCREENING 3. Screening for depression - ICD9: V79.0, ICD10: Z13.31 neg - DEPRESSION SCREENING 4. Encounter for health-related screening - ICD9: V82.9, ICD10: Z13.9 - HIV 1/2 COMBO WITH REFLEX TO DIFFERENTIATION - HEP REMOTE PANEL BL 5. Encounter for immunization - ICD9: V03.89, ICD10: Z23 - TDAP VACCINE, AGE 7+ YR (ADACEL, BOOSTRIX) - HPV VACCINE, 9-VALENT (GARDASIL 9) - PNEUMOCOCCAL VACCINE, 20 VALENT (PREVNAR 20) 6. Tobacco abuse - ICD9: 305.1, ICD10: Z72.0 - Cessation encouraged. - Physiologic and physical aspects of tobacco addiction as well as strategies for quitting were discussed. - Counseling was given focusing on the harmful effects of this addiction especially given the patient's medical condition(s) which will be worsened because of the chemicals in tobacco. - CONSULT LUNG CANCER SCREENING CLINIC 7. Annual physical exam - ICD9: V70.0, ICD10: Z00.00 - Counseled on healthy diet and regular exercise - Lung cancer screening - referral placed - Counseled on alcohol intake and health risks - Follow up for annual exam in one year - ANXIETY SCREENING - DEPRESSION SCREENING - HIV 1/2 COMBO WITH REFLEX TO DIFFERENTIATION - HEP REMOTE PANEL BL - TDAP VACCINE, AGE 7+ YR (ADACEL, BOOSTRIX) - HPV VACCINE, 9-VALENT (GARDASIL 9) - PNEUMOCOCCAL VACCINE, 20 VALENT (PREVNAR 20) - CONSULT LUNG CANCER SCREENING CLINIC - LIPID PANEL, NONFASTING - HEMOGLOBIN A1C -PAP with loom inspector 8. Other fatigue - ICD9: 780.79, ICD10: R53.83 Fatigue, suspect deconditioning s/p illness Has not yet seen PT. Discussed she should establish with them. Discussed she needs to resume work and that she should continue to try to build exercise tolerance. Will evalute for iron deficiency - COMPLETE BLOOD COUNT - IRON AND TIBC - FERRITIN - TSH W/REFLEX FT4 Melvi Swanson Remainder of plan including medications to be continued as prior to this visit unless noted above. I will reach out if lab testing or imaging is abnormal and requires a change in the plan discussed above. Otherwise, we can review results at follow up. I discussed this with the patient and they are in agreement. Discussed with patient the importance of continuity of care. Follow up appointments as scheduled below. We discussed returning sooner if symptoms should worsen or not improve as expected as discussed during our appointment. Symptoms that should prompt escalation of care that we discussed include Fevers, chills, chest pain or shortness of breath Melvi Swanson MD Internal Medicine and Pediatrics [facility] 11/06/2024 7:34 PM Portions of note generated prior to visit. History of illness, past medical and surgical history, family and social history, medications, allergies, labs and imaging reviewed during visit and are updated as appropriate following visit. I spent 60 minutes in the visit, with more than 50% of the total [id number] time of the visit in counseling / coordination of care. Future Appointments Date Time Provider Department Center 11/12/2024 3:30 PM Joie Melissa [facility] 11/26/2024 2:00 PM Prudence Hendricks APRN.CNM OBG[facility] 02/06/2025 6:20 PM Melvi Swanson MD [facility] [1] Social History Tobacco Use Smoking status: Every Day Current packs/day: 1.00 Average packs/day: 1 pack/day for 24.0 years (24.0 ttl pk-yrs) Types: Cigarettes Smokeless tobacco: Current Tobacco comments: Willing to cut down to half pack per da Substance Use Topics Alcohol use: No Drug use: No documented in this encounter [facility] 10-29-2024 Note Patient Outreach (IN TSTJ) GRICEL PATEL ([id number]) 1985 F Date Time Provider Department 10/29/24 MELVI SWANSON [facility] During your visit today, we recorded the following information about you: Allergies As of Date: 10/29/2024 Noted Allergy Reaction VICODIN (HYDROCODONE-ACETAMINOPHE* 005 8 - GI Upset Comments: Patient c/o nausea and dizziness Date Reviewed: 10/16/2024 Reviewed by: Stephanie Wolf MA - Fully Assessed Visit Diagnosis:Encounter for screening mammogram for breast cancer [Z12.31] Order(s):VAHE SCREENING W PAU [[id number]] Order #: [id number] FUTURE Prescriptions as of 11/29/2024 - nicotine (NICODERM) 14 mg/24 hr Apply 1 patch as directed every 24 hours. Problem List As Of Date 10/29/2024 Noted Resolved Genital herpes [A60.00] 07/10/2012 Encounter Status:Closed by [employer] on 11/29/24 [facility] 10-18-2024 Telephone encounter Note Message left notifying patient of result note to review. [facility] 10-18-2024 Miscellaneous Notes Message left notifying patient of result note to review. documented in this encounter [facility] 10-18-2024 Telephone encounter Note Form has been faxed to [phone]. [facility] 10-18-2024 Miscellaneous Notes Form has been faxed to [phone]. LEFT MESSAGE FOR PATIENT TO CALL OFFICE. Patient has been identified by name and date of : Yes, Provider Melvi Swanson MD Date 10/16/2024 Time 513pm Type of form: FMLA Form received via: Fax When form is completed, contact patient . Form has been forwarded to: Provider's desk. Provider name: MD Stephanie Clemente MA documented in this encounter [facility] 10-17-2024 Telephone encounter Note LEFT MESSAGE FOR PATIENT TO CALL OFFICE. [facility] 10-16-2024 Telephone encounter Note Patient has been identified by name and date of : Yes, Provider Melvi Swanson MD Date 10/16/2024 Time 513pm Type of form: FMLA Form received via: Fax When form is completed, contact patient . Form has been forwarded to: Provider's desk. Provider name: MD Stephanie Clemente MA [facility] 10-16-2024 Melvi Page MD - 10/16/2024 2:35 PM EDT Please return in 3 weeks, or sooner if you have worsening of your symptoms. Please see physical therapy, get blood work, and get a head scan. Please work on hydration. You can also try taking more caffeine, and take alleve and tylenol for your headache. Do not take more than the bottle states. Go the the emergency room for any severe 10/10 headache or any sudden weakness or numbness of a limb, speech changes, facial drooping, confusion, difficulty walking and loss of balance, sensation of the room spinning. documented in this encounter [facility] 10-16-2024 History of Present illness Narrative Images from the original note were not included. Family Medicine OUTPATIENT VISIT October 15, 2024 CC: empyema HPI: 39 year old female patient with a history of Empyema on augmentin, managed w/ chest tube (chest tube removed 09/16/24) and lytic therapy Tobacco abuse actively trying to wean Presents for follow up. Since last visit, CBC and CMP unremarkable but slight elevation in inflammatory markers (ESR 35 to 40 and CRP negative to 1.2) in addition to her worsening symptoms, thus CT chest was obtained. IMPRESSION: 1. No CT evidence of pulmonary embolism, no signs of right heart strain. 2. Trace right pleural effusion and underlying linear hypoventilation/scarring in the right lung base, possibly partially treated or early inflammation as suggested on the radiograph of 10/03. 3. No new consolidation or left pleural effusion. Was referred to for US of trace effusion plus possible thoracentesis but was cancelled due to not enough fluid. States that she has been having a migraine over last 3-4 days. Bilateral temples and frontal MORILLO. No neck pain or stiffness. Gets migraines at baseline but this is worse that her usual one. Currently is 4/10. At worse was 8/10. Photophobia early but now improved. No aura. No hand weakness right now but two days ago had hand numbness in both hands at different times lasting 15 minutes that then resolved. No weakness. No confusion, speech slurring or facial droop. States that today it is improving. Is still fatigued. States this is slightly better than last week. Is doing minimal activity daily though is able to go to the store. Has not yet started PT. Mild Shortness of Breath is getting better. Had some NBNB emesis when she was having migraines. Does endorse she thinks she probably is not staying well hydrated due to feeling unwell. Has been using Alleve at home. Review of Systems PAIN ASSESSMENT: Negative for pain, history of chronic pain, or current treatment for a chronic pain condition. GENERAL: No weight loss, or fevers HEENT: as above RESPIRATORY: Negative for cough, wheezing, or drainage from chest tube site. CARDIOVASCULAR: Negative for chest pain, palpitations, PND or orthopnea GI: No nausea, vomiting, or diarrhea or abdominal pain. No NJ bleeding or melana : No history of dysuria, frequency, urgency, or change in urine appearance NEURO: Jose above Health maintenance: Depression Screening Never done Anxiety Screening Never done Hepatitis C Screening Never done HIV Screening Never done DTaP,Tdap,Td Vaccine(1 - Tdap) Never done Hepatitis B Vaccine(1 of 3 - 19+ 3-dose series) Never done Pneumococcal Vaccine(1 of 2 - PCV) Never done Cervical Cancer Screening due on 07/11/2017 Mammogram Screening Never done Allergies: ALLERGIES Allergen Reactions Vicodin [Hydrocodon* GI Upset Patient c/o nausea and dizziness Medications: amoxicillin-clavulanate potassium (AUGMENTIN) 875-125 mg per tablet Take 1 tablet by mouth every 12 hours for 21 days. cyclobenzaprine (FLEXERIL) 10 mg tablet Take 1 tablet by mouth three times a day as needed. nicotine (NICODERM) 14 mg/24 hr Apply 1 patch as directed every 24 hours. (Patient not taking: Reported on 10/09/2024) Past Medical History: PAST MEDICAL HISTORY Diagnosis Date Infectious mononucleosis Mononucleosis Tobacco abuse since age 15, pack a day Urinary tract infection, site not specified Social History: Social History Tobacco Use Smoking status: Every Day Current packs/day: 1.00 Average packs/day: 1 pack/day for 24.0 years (24.0 ttl pk-yrs) Types: Cigarettes Smokeless tobacco: Current Tobacco comments: Willing to cut down to half pack per da Substance Use Topics Alcohol use: No Drug use: No Family History: Family History Problem Relation Age of Onset Heart Paternal Grandmother HEART PROBLEMS Stroke Maternal Grandmother Diabetes Maternal Grandfather Diabetes Paternal Grandmother Breast Cancer Paternal Aunt None Father None Sister None Brother None Mother BP 109/80 (BP Site: Left Arm, BP Position: Sitting, BP Cuff Size: Regular Adult) Pulse 106 Temp 36.9 C (98.5 F) (Left Tympanic) Wt 91.3 kg (201 lb 3.2 oz) LMP 03/11/2024 (Approximate) SpO2 96% General: Awake, alert, not in acute distress LIFE TRAINER: Answering questions appropriately. No abnormal posturing or positioning. Speech is normal. Strength grossly intact. CN exam, speech, UE and LE motor, reflex, and sensory exam all normal. RESP: Clear lungs bilateral with good air entry, No increased work of breathing CVS: RRR, No murmur. Pulses 2+. GI: Abdomen is soft, non distended, non tender. No masses or hepatomegaly appreciated. Skin/Other: No rashes or lesions. HEENT: pupils equal, no mastoid or frontal/maxillary sinus pain. TM normal bilaterally with normal canal Kernig negative Extremities: No peripheral edema, swelling or erythema of lower extremities. Labs: Reviewed the following: Pertinent labs as outlined above Imaging: Reviewed the following: Reviewed recent pertinent imaging Reviewed CTA Reviewed imaging with patient IMPRESSION: 1. No CT evidence of pulmonary embolism, no signs of right heart strain. 2. Trace right pleural effusion and underlying linear hypoventilation/scarring in the right lung base, possibly partially treated or early inflammation as suggested on the radiograph of 10/03. 3. No new consolidation or left pleural effusion. Assessment/Plan: ASSESSMENT/PLAN: 1. Empyema (HCC) - ICD9: 510.9, ICD10: J86.9 (primary diagnosis) Empyema, improving. CTA showing trace effusion and some opacification that likely represents scarring or resolving PNA. Continue augmentin for 3 week course per ID Consulted pulm, continue follow up. Will repeat CRP, ESR and CBC Repeat CXR likely at 3 week follow up 2. Tobacco abuse - ICD9: 305.1, ICD10: Z72.0 - Cessation encouraged. - Physiologic and physical aspects of tobacco addiction as well as strategies for quitting were discussed. - Counseling was given focusing on the harmful effects of this addiction especially given the patient's medical condition(s) which will be worsened because of the chemicals in tobacco. - Recommended to called 1-800-QUIT NOW -continue nicotine patches 3. Headache, unspecified headache type - ICD9: 784.0, ICD10: R51.9 MORILLO, improving. She does endorse decreasing fluid and caffeine intake so potentially related to this. Because she describes neuro symptoms with hand paresthesia, 10/10 pain earlier in the week and being treated for infection will get head CT out of abundance of caution, but suspect simple migraine most likely differential. Other differentials that are unlikely include meningitis, systemic infection or intracranial infection. - COMPLETE BLOOD COUNT AND DIFFERENTIAL - RENAL FUNCTION PANEL to r/o lyte abnormality - MAGNESIUM - CT BRAIN WO IVCON - C-REACTIVE PROTEIN - SEDIMENTATION RATE, WESTERGREN 4. Fatigue, unspecified type - ICD9: 780.79, ICD10: R53.83 Likely deconditioning. Has not started PT. Advised to start PT and will follow up in 3 weeks. Advised to return in sooner than 3 weeks if new or worsening symptoms. Mevli Swanson Remainder of plan including medications to be continued as prior to this visit unless noted above. I will reach out if lab testing or imaging is abnormal and requires a change in the plan discussed above. Otherwise, we can review results at follow up. I discussed this with the patient and they are in agreement. Discussed with patient the importance of continuity of care. Follow up appointments as scheduled below. We discussed returning sooner if symptoms should worsen or not improve as expected as discussed during our appointment. Symptoms that should prompt escalation of care that we discussed include 10/10 headache or any sudden weakness or numbness of a limb, speech changes, facial drooping, confusion, difficulty walking and loss of balance, sensation of the room spinning. Melvi Swanson MD Internal Medicine and Pediatrics [facility] 10/16/2024 2:53 PM Portions of note generated prior to visit. History of illness, past medical and surgical history, family and social history, medications, allergies, labs and imaging reviewed during visit and are updated as appropriate following visit. I spent 30 minutes in the visit, with more than 50% of the total oqch-yr-[id number] time of the visit in counseling / coordination of care. Future Appointments Date Time Provider Department Center 10/16/2024 3:00 PM LAB [facility] 10/23/2024 3:[address] [facility] (I-STAT) [facility] Fr[facility] Bazan 11/06/2024 1:40 PM Melvi Swanson MD [facility] 11/26/2024 2:00 PM Prudence Hendricks APRN.CNM [facility] 12/09/2024 1:00 PM Melvi Swanson MD [facility] documented in this encounter [facility] 10-16-2024 Note HNO ID: [id number] Author: MELVI SWANSON MD Service: ? Author Type: Physician Type: Progress Notes Filed: 10/16/2024 14:57 Note Text: Family Medicine OUTPATIENT VISIT October 15, 2024 CC: empyema HPI: 39 year old female patient with a history of Empyema on augmentin, managed w/ chest tube (chest tube removed 09/16/24) and lytic therapy Tobacco abuse actively trying to wean Presents for follow up. Since last visit, CBC and CMP unremarkable but slight elevation in inflammatory markers (ESR 35 to 40 and CRP negative to 1.2) in addition to her worsening symptoms, thus CT chest was obtained. IMPRESSION: 1. No CT evidence of pulmonary embolism, no signs of right heart strain. 2. Trace right pleural effusion and underlying linear hypoventilation/scarring in the right lung base, possibly partially treated or early inflammation as suggested on the radiograph of 10/03. 3. No new consolidation or left pleural effusion. Was referred to for US of trace effusion plus possible thoracentesis but was cancelled due to not enough fluid. States that she has been having a migraine over last 3-4 days. Bilateral temples and frontal MORILLO. No neck pain or stiffness. Gets migraines at baseline but this is worse that her usual one. Currently is 4/10. At worse was 8/10. Photophobia early but now improved. No aura. No hand weakness right now but two days ago had hand numbness in both hands at different times lasting 15 minutes that then resolved. No weakness. No confusion, speech slurring or facial droop. States that today it is improving. Is still fatigued. States this is slightly better than last week. Is doing minimal activity daily though is able to go to the store. Has not yet started PT. Mild Shortness of Breath is getting better. Had some NBNB emesis when she was having migraines. Does endorse she thinks she probably is not staying well hydrated due to feeling unwell. Has been using Alleve at home. Review of Systems PAIN ASSESSMENT: Negative for pain, history of chronic pain, or current treatment for a chronic pain condition. GENERAL: No weight loss, or fevers HEENT: as above RESPIRATORY: Negative for cough, wheezing, or drainage from chest tube site. CARDIOVASCULAR: Negative for chest pain, palpitations, PND or orthopnea GI: No nausea, vomiting, or diarrhea or abdominal pain. No NJ bleeding or melana : No history of dysuria, frequency, urgency, or change in urine appearance NEURO: Jose above Health maintenance: Depression Screening Never done Anxiety Screening Never done Hepatitis C Screening Never done HIV Screening Never done DTaP,Tdap,Td Vaccine(1 - Tdap) Never done Hepatitis B Vaccine(1 of 3 - 19+ 3-dose series) Never done Pneumococcal Vaccine(1 of 2 - PCV) Never done Cervical Cancer Screening due on 07/11/2017 Mammogram Screening Never done Allergies: ALLERGIES Allergen Reactions Vicodin [Hydrocodon* GI Upset Patient c/o nausea and dizziness Medications: amoxicillin-clavulanate potassium (AUGMENTIN) 875-125 mg per tablet Take 1 tablet by mouth every 12 hours for 21 days. cyclobenzaprine (FLEXERIL) 10 mg tablet Take 1 tablet by mouth three times a day as needed. nicotine (NICODERM) 14 mg/24 hr Apply 1 patch as directed every 24 hours. (Patient not taking: Reported on 10/09/2024) Past Medical History: PAST MEDICAL HISTORY Diagnosis Date Infectious mononucleosis Mononucleosis Tobacco abuse since age 15, pack a day Urinary tract infection, site not specified Social History: Social History Tobacco Use Smoking status: Every Day Current packs/day: 1.00 Average packs/day: 1 pack/day for 24.0 years (24.0 ttl pk-yrs) Types: Cigarettes Smokeless tobacco: Current Tobacco comments: Willing to cut down to half pack per da Substance Use Topics Alcohol use: No Drug use: No Family History: Family History Problem Relation Age of Onset Heart Paternal Grandmother HEART PROBLEMS Stroke Maternal Grandmother Diabetes Maternal Grandfather Diabetes Paternal Grandmother Breast Cancer Paternal Aunt None Father None Sister None Brother None Mother BP 109/80 (BP Site: Left Arm, BP Position: Sitting, BP Cuff Size: Regular Adult) Pulse 106 Temp 36.9 ?C (98.5 ?F) (Left Tympanic) Wt 91.3 kg (201 lb 3.2 oz) LMP 03/11/2024 (Approximate) SpO2 96% General: Awake, alert, not in acute distress LIFE TRAINER: Answering questions appropriately. No abnormal posturing or positioning. Speech is normal. Strength grossly intact. CN exam, speech, UE and LE motor, reflex, and sensory exam all normal. RESP: Clear lungs bilateral with good air entry, No increased work of breathing CVS: RRR, No murmur. Pulses 2+. GI: Abdomen is soft, non distended, non tender. No masses or hepatomegaly appreciated. Skin/Other: No rashes or lesions. HEENT: pupils equal, no mastoid or frontal/maxillary sinus pain. TM normal bilaterally with normal c (more content not included)... [facility] 10-10-2024 History of Present illness Narrative Radiology Service Progress Note DATE OF SERVICE: October 10, 2024 TIME: 4:00 PM PATIENT IDENTITY VERIFICATION COMPLETED USING TWO (2) STANDARD IDENTIFIERS: Name and Date of confirmed by patient verbally. FALL SCREENING: Has the patient had 2 falls in the last year or 1 fall with injury or currently using an Ambulatory Assistive Device (Walker, Cane, Wheelchair, Crutches, etc.)? No PATIENT GENDER DATA: Assigned female at . status: : No status: NO. PATIENT RELEVANT IMPLANT DATA REVIEWED: Yes PATIENT PRESENTS WITH AN IMPLANTABLE OR ATTACHED AGRICULTURE CONSULTANT: No ALLERGIES: Reviewed and unchanged CONTRAST ALLERGY: NO. EXAM: CT -CONTRAST INDUCED NEPHROPATHY RISK FACTORS: Not applicable CREATININE: Creatinine Date Value Ref Range Status 10/09/2024 0.79 0.58 - 0.96 mg/dL Final 10/03/2024 0.94 0.58 - 0.96 mg/dL Final 09/02/2024 0.87 0.58 - 0.96 mg/dL Final Estimated Glomerular Filtration Rate Date Value Ref Range Status 10/09/2024 97 >=60 mL/min/1.73m Final Comment: Estimated Glomerular Filtration Rate (eGFR) is calculated using the 2020 CKD-EPI creatinine equation. This equation utilizes serum creatinine, sex, and age as parameters. The creatinine assay has traceable calibration to isotope dilution-mass spectrometry. Refer to KDIGO guidelines for clinical interpretation. In patients with unstable renal function, e.g. those with acute kidney injury, the eGFR may not accurately reflect actual GFR. P.O.C.T. RESULTS: POC done: Yes, See Lab Tab October 10, 2024 TREATMENT: N/A PERIPHERAL IV DATA: Ambulatory: A peripheral IV was started in the Left antecubital site with a Angio cath: 18 gauge. RADIOLOGY DEPARTMENT: CT; Exam(s) Completed: PE Study SIGNATURE: DAVIS Michael) PATIENT NAME: Gricel Patel DATE: October 10, 2024 TIME: 4:00 PM documented in this encounter [facility] 10-10-2024 Note HNO ID: [id number] Author: JACKLYN PARK RT(R) Service: ? Author Type: Furrier Shop Supervisor Type: Progress Notes Filed: 10/10/2024 16:01 Note Text: Radiology Service Progress Note DATE OF SERVICE: October 10, 2024 TIME: 4:00 PM PATIENT IDENTITY VERIFICATION COMPLETED USING TWO (2) STANDARD IDENTIFIERS: Name and Date of confirmed by patient verbally. FALL SCREENING: Has the patient had 2 falls in the last year or 1 fall with injury or currently using an Ambulatory Assistive Device (Walker, Cane, Wheelchair, Crutches, etc.)? No PATIENT GENDER DATA: Assigned female at . status: : No status: NO. PATIENT RELEVANT IMPLANT DATA REVIEWED: Yes PATIENT PRESENTS WITH AN IMPLANTABLE OR ATTACHED AGRICULTURE CONSULTANT: No ALLERGIES: Reviewed and unchanged CONTRAST ALLERGY: NO. EXAM: CT -CONTRAST INDUCED NEPHROPATHY RISK FACTORS: Not applicable CREATININE: Creatinine Date Value Ref Range Status 10/09/2024 0.79 0.58 - 0.96 mg/dL Final 10/03/2024 0.94 0.58 - 0.96 mg/dL Final 09/02/2024 0.87 0.58 - 0.96 mg/dL Final Estimated Glomerular Filtration Rate Date Value Ref Range Status 10/09/2024 97 >=60 mL/min/1.73m? Final Comment: Estimated Glomerular Filtration Rate (eGFR) is calculated using the 2020 CKD-EPI creatinine equation. This equation utilizes serum creatinine, sex, and age as parameters. The creatinine assay has traceable calibration to isotope dilution-mass spectrometry. Refer to KDIGO guidelines for clinical interpretation. In patients with unstable renal function, e.g. those with acute kidney injury, the eGFR may not accurately reflect actual GFR. P.O.C.T. RESULTS: POC done: Yes, See Lab Tab October 10, 2024 TREATMENT: N/A PERIPHERAL IV DATA: Ambulatory: A peripheral IV was started in the Left antecubital site with a Angio cath: 18 gauge. RADIOLOGY DEPARTMENT: CT; Exam(s) Completed: PE Study SIGNATURE: RT Fernanda(R) PATIENT NAME: Gricel Patel DATE: October 10, 2024 TIME: 4:00 PM [facility] 10-10-2024 Telephone encounter Note Spoke with pt to schedule visit and Thoracentesis 10/11/24 beginning @ 1:45 pm. [facility] 10-10-2024 Miscellaneous Notes Spoke with pt to schedule visit and Thoracentesis 10/11/24 beginning @ 1:45 pm. Contacted patient to schedule visit and Thoracentesis.No answer,left message. documented in this encounter [facility] 10-10-2024 Note HNO ID: [id number] Author: UGO HERNANDEZ DO Service: ? Author Type: Physician Type: Progress Notes Filed: 10/10/2024 13:23 Note Text: CONSULTING SERVICE: Pulmonary Medicine Consultation requested by Melvi Swanson for an opinion regarding Gricel Patel. My final recommendations will be communicated back to the requesting physician by way of shared Medical record or letter to requesting physician via US mail. I am being asked to provide an opinion on abnormal CXR for Gricel Patel who is a 39 year old female Tobacco Use: High Risk (10/09/2024) Patient History Smoking Tobacco Use: Every Day Smokeless Tobacco Use: Current Passive Exposure: Not on file ASSESSMENT 39 year old female with complicated parapneumonic effusion/empyema s/p right pleural chest tube on 09/08 for pleural drainage and intrapleural lysis per report (maintained on augmentin) She is ~2-3 weeks post discharge. Post chest-tube CT reports Repeat CT chest on 09/14 with significant improvement in right sided loculated effusion. Moderate amount of residual pleural fluid with loculated components. Though images unavailable Seen by her PCP who notes worsening fatigue worse than last week worsening shortness of breath on exertion which prompted repeat CXR as below showing generally stable Labs obtained with moderate ESR and mild CRP elevation and normal leukocytosis. RECOMMENDATIONS Unable to reach Dr. Swanson Directly for further information regarding case Agree with repeat CT CHEST (if symptoms are indeed worsening) vs Lung Ultrasound if patient is worsening to better assess pleural space Continue augmentin awaiting above This plan will be communicated back with Dr. Melvi Swanson. Unable to reach via phone for discussion. I spent 4 minutes reviewing records, addressing clinical questions/concerns, and transmitting my assessment and recommendations (by direct communication if indicated) to the requesting team. The patient or patient's underwriting account representative consented to e-consultation. Ugo Hernandez, Pulmonary AND Critical Care Medicine [facility] 10-10-2024 History of Present illness Narrative Images from the original note were not included. CONSULTING SERVICE: Pulmonary Medicine Consultation requested by Melvi Swanson for an opinion regarding Gricel Patel. My final recommendations will be communicated back to the requesting physician by way of shared Medical record or letter to requesting physician via US mail. I am being asked to provide an opinion on abnormal CXR for Gricel Patel who is a 39 year old female Tobacco Use: High Risk (10/09/2024) Patient History Smoking Tobacco Use: Every Day Smokeless Tobacco Use: Current Passive Exposure: Not on file ASSESSMENT 39 year old female with complicated parapneumonic effusion/empyema s/p right pleural chest tube on 09/08 for pleural drainage and intrapleural lysis per report (maintained on augmentin) She is ~2-3 weeks post discharge. Post chest-tube CT reports Repeat CT chest on 09/14 with significant improvement in right sided loculated effusion. Moderate amount of residual pleural fluid with loculated components. Though images unavailable Seen by her PCP who notes worsening fatigue worse than last week worsening shortness of breath on exertion which prompted repeat CXR as below showing generally stable Labs obtained with moderate ESR and mild CRP elevation and normal leukocytosis. RECOMMENDATIONS Unable to reach Dr. Swanson Directly for further information regarding case Agree with repeat CT CHEST (if symptoms are indeed worsening) vs Lung Ultrasound if patient is worsening to better assess pleural space Continue augmentin awaiting above This plan will be communicated back with Dr. Melvi Swanson. Unable to reach via phone for discussion. I spent 4 minutes reviewing records, addressing clinical questions/concerns, and transmitting my assessment and recommendations (by direct communication if indicated) to the requesting team. The patient or patient's underwriting account representative consented to e-consultation. Ugo Hernandez DO Pulmonary & Critical Care Medicine documented in this encounter [facility] 10-10-2024 Note HNO ID: [id number] Author: MELVI SWANSON MD Service: ? Author Type: Physician Type: Progress Notes Filed: 10/10/2024 12:35 Note Text: IP consult [facility] 10-10-2024 History of Present illness Narrative IP consult documented in this encounter [facility] 10-10-2024 Telephone encounter Note Contacted patient to schedule visit and Thoracentesis.No answer,left message. [facility] 10-10-[address] scan w/ IV con to evaluate for PNA, empyema and PE [facility] 10-10-[address] scan w/ IV con to evaluate for PNA, empyema and PE documented in this encounter [facility] 10-10-2024 Telephone encounter Note Ordering CTPE Will call pt to let her know [facility] 10-10-2024 Miscellaneous Notes Ordering CTPE Will call pt to let her know documented in this encounter [facility] 10-09-2024 History of Present illness Narrative Radiology Service Progress Note PATIENT NAME: Gricel Patel DATE OF SERVICE: October 09, 2024 TIME: 3:53 PM PATIENT IDENTITY VERIFICATION COMPLETED USING TWO (2) IDENTIFIERS: Name and Date of confirmed by patient verbally. FALL SCREENING: Has the patient had 2 falls in the last year or 1 fall with injury or currently using an Ambulatory Assistive Device (Walker, Cane, Wheelchair, Crutches, etc.)? No PATIENT GENDER DATA: Assigned female at . status: : No status: NO. PATIENT RELEVANT IMPLANT DATA REVIEWED: Yes PATIENT PRESENTS WITH AN IMPLANTABLE OR ATTACHED AGRICULTURE CONSULTANT: No RADIOLOGY DEPARTMENT: General X-ray: Exam(s) Completed: Chest X-Ray PERIPHERAL IV DATA: Not applicable SIGNED BY: RT Torres(R) October 09, 2024 3:53 PM documented in this encounter [facility] 10-09-2024 Note HNO ID: [id number] Author: MONTANA PEARSON RT(Zenia) Service: ? Author Type: Furrier Shop Supervisor Type: Progress Notes Filed: 10/09/2024 16:00 Note Text: Radiology Service Progress Note PATIENT NAME: Gricel Patel DATE OF SERVICE: October 09, 2024 TIME: 3:53 PM PATIENT IDENTITY VERIFICATION COMPLETED USING TWO (2) IDENTIFIERS: Name and Date of confirmed by patient verbally. FALL SCREENING: Has the patient had 2 falls in the last year or 1 fall with injury or currently using an Ambulatory Assistive Device (Walker, Cane, Wheelchair, Crutches, etc.)? No PATIENT GENDER DATA: Assigned female at . status: : No status: NO. PATIENT RELEVANT IMPLANT DATA REVIEWED: Yes PATIENT PRESENTS WITH AN IMPLANTABLE OR ATTACHED AGRICULTURE CONSULTANT: No RADIOLOGY DEPARTMENT: General X-ray: Exam(s) Completed: Chest X-Ray PERIPHERAL IV DATA: Not applicable SIGNED BY: RT Torres(R) October 09, 2024 3:53 PM [facility] 10-09-2024 Note HNO ID: [id number] Author: KUN BROWN MD Service: ? Author Type: Physician Type: Progress Notes Filed: 10/09/2024 15:51 Note Text: Infectious Disease E-Consult Response In response to your eConsult Infectious Disease request for Gricel Patel regarding: Pleural effusion treated with chest tube in August and Augmentin recommendation per pulmonary. History of present illness provided through requesting provider documentation and current treatment plan was reviewed. Based on the patient history provided, my impression is as follows: Agree with plan in discharge summary from 09/07. Augmentin 3 weeks per pulmonary appropriate. Specialist appointment needs: No appointment necessary Kun Brown MD October 09, 2024 [facility] 10-09-2024 History of Present illness Narrative Infectious Disease E-Consult Response In response to your eConsult Infectious Disease request for Gricel Patel regarding: Pleural effusion treated with chest tube in August and Augmentin recommendation per pulmonary. History of present illness provided through requesting provider documentation and current treatment plan was reviewed. Based on the patient history provided, my impression is as follows: Agree with plan in discharge summary from 09/07. Augmentin 3 weeks per pulmonary appropriate. Specialist appointment needs: No appointment necessary Kun Brown MD October 09, 2024 documented in this encounter [facility] 10-09-2024 Instructions Melvi Swanson MD - 10/09/2024 3:28 PM EDT Blood work, xray and will try to coordinate getting ultrasound and possible pleural studies at main campus. Will refer for infectious disease and pulmonology within our system. Please continue augmentin for 3 weeks. Please follow up in one week or sooner if needed. documented in this encounter [facility] 10-09-2024 History of Present illness Narrative Images from the original note were not included. Family Medicine OUTPATIENT VISIT October 08, 2024 CC: Empyema follow up HPI: 39 year old female patient with a history of Tobacco abuse and recent admission for complicated pleural effusion treated with abx, currently on oral augmentin, and chest draim removed 09/16. Suspected to be from oral source-dental caries- and with dentistry, ID and pulm follow up. Was assessed last week where she had significant but improving fatigue without systemic signs of illness or respiratory disease otherwise. Labwork was unremarkable except for mildly elevated ESR, improved from admission, and CXR showed small pleural effusion that was increased from day of chest tube removal. DVT US did not demonstrate IJ thrombus. US to better evaluate pleural effusion not yet obtained. Today, complains of: Still tired. Able to go to bathroom on her own. States her fatigue is slightly worse than last week. Is being more active than last week, however. Now with some worsening shortness of breath on exertion she reports. Not positional. No PND. Some coughing with clear sputum. No wheezing. No sustained significant chest pain or shoulder tip pain, though 2-3 times has had right sided sharp generalized chest pain that self resolved after about 20 seconds. No fevers or chills. No drainage from chest tube site. Diarrhea over last several days. Three episodes over last two days. Mild generalized abdominal pain. No urinary symptoms. Augmentin is due to end today. Review of Systems PAIN ASSESSMENT: Negative for pain, history of chronic pain, or current treatment for a chronic pain condition. GENERAL: No weight loss, or fevers HEENT: Negative for frequent or significant headaches RESPIRATORY: Negative for cough, wheezing, shortness of breath CARDIOVASCULAR: Negative for chest pain, palpitations, PND or orthopnea GI: No nausea, vomiting, or diarrhea or abdominal pain. No NJ bleeding or melana : No history of dysuria, frequency, urgency, or change in urine appearance NEURO: No history of headaches, numbness, weakness, or changes to vision or hearing Health maintenance: Depression Screening Never done Anxiety Screening Never done Hepatitis C Screening Never done HIV Screening Never done DTaP,Tdap,Td Vaccine(1 - Tdap) Never done Hepatitis B Vaccine(1 of 3 - 19+ 3-dose series) Never done Pneumococcal Vaccine(1 of 2 - PCV) Never done Cervical Cancer Screening due on 07/11/2017 Covid-19 Vaccine( season) Never done Mammogram Screening due on 2024 Allergies: ALLERGIES Allergen Reactions Vicodin [Hydrocodon* GI Upset Patient c/o nausea and dizziness Medications: guaiFENesin (MUCINEX) 600 mg 12 hr tablet Take 600 mg by mouth every 12 hours. cyclobenzaprine (FLEXERIL) 10 mg tablet Take 1 tablet by mouth three times a day as needed. amoxicillin-clavulanate potassium (AUGMENTIN) 875-125 mg per tablet Take 1 tablet by mouth every 12 hours for 21 days. nicotine (NICODERM) 14 mg/24 hr Apply 1 patch as directed every 24 hours. (Patient not taking: Reported on 10/09/2024) Past Medical History: PAST MEDICAL HISTORY Diagnosis Date Infectious mononucleosis Mononucleosis Tobacco abuse since age 15, pack a day Urinary tract infection, site not specified Social History: Social History Tobacco Use Smoking status: Every Day Current packs/day: 1.00 Average packs/day: 1 pack/day for 24.0 years (24.0 ttl pk-yrs) Types: Cigarettes Smokeless tobacco: Current Tobacco comments: Willing to cut down to half pack per da Substance Use Topics Alcohol use: No Drug use: No Family History: Family History Problem Relation Age of Onset Heart Paternal Grandmother HEART PROBLEMS Stroke Maternal Grandmother Diabetes Maternal Grandfather Diabetes Paternal Grandmother Breast Cancer Paternal Aunt None Father None Sister None Brother None Mother BP 107/76 Pulse 86 Resp 12 Wt 94.2 kg (207 lb 9.6 oz) LMP 03/11/2024 (Approximate) SpO2 98% General: Awake, alert, not in acute distress. Ill but not toxic appearing LIFE TRAINER: Answering questions appropriately. No abnormal posturing or positioning. Speech is normal. Strength grossly intact. RESP: No increased WOB on RA but mildly increased WOB when she gets onto exam table. Decreased air entry to mid lung field on right, worse than last week. No other added sounds. CVS: RRR, No murmur. Pulses 2+. GI: Abdomen is soft, non distended, non tender. No masses or hepatomegaly appreciated. Skin/Other: No rashes or lesions. HEENT: pupils equal Extremities: No peripheral edema, swelling or erythema of lower extremities. Labs: Reviewed the following: Pertinent labs as outlined above Latest Ref Rng 10/03/2024 WBC 3.70 - 11.00 k/uL 5.70 RBC 3.90 - 5.20 m/uL 3.92 Hemoglobin 11.5 - 15.5 g/dL 11.5 Hematocrit 36.0 - 46.0 % 35.6 (L) MCV 80.0 - 100.0 fL 90.8 MCH 26.0 - 34.0 pg 29.3 MCHC 30.5 - 36.0 g/dL 32.3 RDW-CV 11.5 - 15.0 % 13.6 Platelet Count 150 - 400 k/uL 310 MPV 9.0 - 12.7 fL 8.9 (L) Neut% % 57.3 Abs Neut (ANC) 1.45 - 7.50 k/uL 3.27 Lymph% % 33.2 Abs Lymph 1.00 - 4.00 k/uL 1.89 [place]% % 6.3 Abs [place] <0.87 k/uL 0.36 Eosin% % 2.5 Abs Eosin <0.46 k/uL 0.14 Baso% % 0.5 Abs Baso <0.11 k/uL 0.03 Immature Gran % % 0.2 IMMATURE GRANS (ABS) <0.10 k/uL <0.03 NRBC /100 WBC 0.0 Absolute nRBC <0.01 k/uL <0.01 DTYPE Auto Protein, Total 6.3 - 8.0 g/dL 7.4 Albumin 3.9 - 4.9 g/dL 3.7 (L) Calcium 8.5 - 10.2 mg/dL 9.8 Bilirubin, Total 0.2 - 1.3 mg/dL 0.3 Alkaline Phosphatase 34 - 123 U/L 78 AST 13 - 35 U/L 28 ALT 7 - 38 U/L 31 Glucose 74 - 99 mg/dL 100 (H) BUN 7 - 21 mg/dL 13 Creatinine 0.58 - 0.96 mg/dL 0.94 Sodium 136 - 144 mmol/L 141 Potassium 3.7 - 5.1 mmol/L 4.1 Chloride 98 - 107 mmol/L 101 CO2 22 - 30 mmol/L 27 Anion Gap 8 - 15 mmol/L 13 eGFR >=60 mL/min/1.73m 79 CRP <0.9 mg/dL <0.3 WSR 0 - 20 mm/hr 35 (H) Magnesium 1.7 - 2.3 mg/dL 1.9 Phosphorus 2.7 - 4.8 mg/dL 4.5 Legend: (L) Low (H) High Imaging: Reviewed the following: Reviewed recent pertinent imaging CXR 10/03 This right sided pleural effusion is larger than on 09/16 IMPRESSION: Right-sided pleural fluid and atelectasis. Minimal linear atelectasis at the left base DVT US 10/07 IMPRESSION: Negative study for DVT in the left and right upper extremity. There is suboptimal visualization of the left brachial vein however. Negative study for superficial thrombophlebitis in the imaged segments of the left and right upper extremity. Assessment/Plan: ASSESSMENT/PLAN: 1. Empyema (HCC) - ICD9: 510.9, ICD10: J86.9 Symptomatically, worse than last week with worsening Shortness of Breath and fatigue, but without chills, fever to suggest systemic infection and labs from last week showing improvement. CXR last week showing small effusion slightly worse than day of chest tube removal. CXR today not yet read but does not appear worse in terms of effusion size. Plan is to repeat labs today, and refer to for pleural scan +/- thoracentesis for diagnostics if enough fluid to drain. Did discuss that if heavily loculated effusion, would potentially warrant admission for chest tube and further workup and management. Plan Consult pulmonology. Consulted ID who recommended three more weeks of augmentin. - AMOXICILLIN 875 MG-POTASSIUM CLAVULANATE 125 MG TABLET - E-CONSULT INFECTIOUS DISEASE - CONSULT TO PULMONARY MEDICINE - XR CHEST 2V FRONTAL/LAT - COMPLETE BLOOD COUNT AND DIFFERENTIAL - COMPREHENSIVE METABOLIC PANEL - SEDIMENTATION RATE, WESTERGREN - C-REACTIVE PROTEIN - MAGNESIUM - PHOSPHORUS INORGANIC - AMOXICILLIN 875 MG-POTASSIUM CLAVULANATE 125 MG TABLET - CONSULT TO PULMONARY MEDICINE -Advised to return in one week, sooner if worsening symptoms and to present to ED for severe Shortness of Breath, fever. Melvi Swanson Remainder of plan including medications to be continued as prior to this visit unless noted above. I will reach out if lab testing or imaging is abnormal and requires a change in the plan discussed above. Otherwise, we can review results at follow up. I discussed this with the patient and they are in agreement. Discussed with patient the importance of continuity of care. Follow up appointments as scheduled below. We discussed returning sooner if symptoms should worsen or not improve as expected as discussed during our appointment. Symptoms that should prompt escalation of care that we discussed include worsening shortness of breath, fevers, chills, chest pain Melvi Swanson MD Internal Medicine and Pediatrics [facility] 10/09/2024 4:18 PM Portions of note generated prior to visit. History of illness, past medical and surgical history, family and social history, medications, allergies, labs and imaging reviewed during visit and are updated as appropriate following visit. Future Appointments Date Time Provider Department Center 10/21/2024 8:30 AM Layo Mello PT PTWS [facility] 11/26/2024 2:00 PM Prudence Hendricks APRN.CNM [facility] 12/09/2024 1:00 PM [facility] I spent 45 minutes in the visit, with more than 50% of the total [id number]-op-adoo time of the visit in counseling / coordination of care. documented in this encounter [facility] 10-09-2024 Note HNO ID: [id number] Author: MELVI SWANSON MD Service: ? Author Type: Physician Type: Progress Notes Filed: 10/09/2024 18:04 Note Text: Family Medicine OUTPATIENT VISIT October 08, 2024 CC: Empyema follow up HPI: 39 year old female patient with a history of Tobacco abuse and recent admission for complicated pleural effusion treated with abx, currently on oral augmentin, and chest draim removed 09/16. Suspected to be from oral source-dental caries- and with dentistry, ID and pulm follow up. Was assessed last week where she had significant but improving fatigue without systemic signs of illness or respiratory disease otherwise. Labwork was unremarkable except for mildly elevated ESR, improved from admission, and CXR showed small pleural effusion that was increased from day of chest tube removal. DVT US did not demonstrate IJ thrombus. US to better evaluate pleural effusion not yet obtained. Today, complains of: Still tired. Able to go to bathroom on her own. States her fatigue is slightly worse than last week. Is being more active than last week, however. Now with some worsening shortness of breath on exertion she reports. Not positional. No PND. Some coughing with clear sputum. No wheezing. No sustained significant chest pain or shoulder tip pain, though 2-3 times has had right sided sharp generalized chest pain that self resolved after about 20 seconds. No fevers or chills. No drainage from chest tube site. Diarrhea over last several days. Three episodes over last two days. Mild generalized abdominal pain. No urinary symptoms. Augmentin is due to end today. Review of Systems PAIN ASSESSMENT: Negative for pain, history of chronic pain, or current treatment for a chronic pain condition. GENERAL: No weight loss, or fevers HEENT: Negative for frequent or significant headaches RESPIRATORY: Negative for cough, wheezing, shortness of breath CARDIOVASCULAR: Negative for chest pain, palpitations, PND or orthopnea GI: No nausea, vomiting, or diarrhea or abdominal pain. No NJ bleeding or melana : No history of dysuria, frequency, urgency, or change in urine appearance NEURO: No history of headaches, numbness, weakness, or changes to vision or hearing Health maintenance: Depression Screening Never done Anxiety Screening Never done Hepatitis C Screening Never done HIV Screening Never done DTaP,Tdap,Td Vaccine(1 - Tdap) Never done Hepatitis B Vaccine(1 of 3 - 19+ 3-dose series) Never done Pneumococcal Vaccine(1 of 2 - PCV) Never done Cervical Cancer Screening due on 07/11/2017 Covid-19 Vaccine(2023- season) Never done Mammogram Screening due on 2024 Allergies: ALLERGIES Allergen Reactions Vicodin [Hydrocodon* GI Upset Patient c/o nausea and dizziness Medications: guaiFENesin (MUCINEX) 600 mg 12 hr tablet Take 600 mg by mouth every 12 hours. cyclobenzaprine (FLEXERIL) 10 mg tablet Take 1 tablet by mouth three times a day as needed. amoxicillin-clavulanate potassium (AUGMENTIN) 875-125 mg per tablet Take 1 tablet by mouth every 12 hours for 21 days. nicotine (NICODERM) 14 mg/24 hr Apply 1 patch as directed every 24 hours. (Patient not taking: Reported on 10/09/2024) Past Medical History: PAST MEDICAL HISTORY Diagnosis Date Infectious mononucleosis Mononucleosis Tobacco abuse since age 15, pack a day Urinary tract infection, site not specified Social History: Social History Tobacco Use Smoking status: Every Day Current packs/day: 1.00 Average packs/day: 1 pack/day for 24.0 years (24.0 ttl pk-yrs) Types: Cigarettes Smokeless tobacco: Current Tobacco comments: Willing to cut down to half pack per da Substance Use Topics Alcohol use: No Drug use: No Family History: Family History Problem Relation Age of Onset Heart Paternal Grandmother HEART PROBLEMS Stroke Maternal Grandmother Diabetes Maternal Grandfather Diabetes Paternal Grandmother Breast Cancer Paternal Aunt None Father None Sister None Brother None Mother BP 107/76 Pulse 86 Resp 12 Wt 94.2 kg (207 lb 9.6 oz) LMP 03/11/2024 (Approximate) SpO2 98% General: Awake, alert, not in acute distress. Ill but not toxic appearing LIFE TRAINER: Answering questions appropriately. No abnormal posturing or positioning. Speech is normal. Strength grossly intact. RESP: No increased WOB on RA but mildly increased WOB when she gets onto exam table. Decreased air entry to mid lung field on right, worse than last week. No other added sounds. CVS: RRR, No murmur. Pulses 2+. GI: Abdomen is soft, non distended, non tender. No masses or hepatomegaly appreciated. Skin/Other: No rashes or lesions. HEENT: pupils equal Extremities: No peripheral edema, swelling or erythema of lower extremities. Labs: Reviewed the following: Pertinent labs as outlined above Latest Ref Rng 10/03/2024 WBC 3.70 - 11.00 k/uL 5.70 RBC 3.90 - 5.20 m/uL 3.92 Hemoglobin 1 (more content not included)... [facility] 10-07-2024 Telephone encounter Note Yes and ok for or Monday. [facility] 10-07-2024 Miscellaneous Notes Yes and ok for or Monday. Spoke with staff at [place]. They can do the jugular ultrasound but not the effusion ultrasound. [facility] can do the effusion ultrasound. Would this be acceptable? Please advise for scheduling purposes. Stacie Melo Order for the bilateral jugular artery needs changed to vascular lab STAT and will be completed at [facility]. documented in this encounter [facility] 10-07-2024 History of Present illness Narrative Radiology Service Progress Note PATIENT NAME: Gricel Patel DATE OF SERVICE: October 07, 2024 TIME: 5:17 PM PATIENT IDENTITY VERIFICATION COMPLETED USING TWO (2) IDENTIFIERS: Name and Date of confirmed by patient verbally. FALL SCREENING: Has the patient had 2 falls in the last year or 1 fall with injury or currently using an Ambulatory Assistive Device (Walker, Cane, Wheelchair, Crutches, etc.)? No PATIENT GENDER DATA: Assigned female at . status: : No status: NO. PATIENT RELEVANT IMPLANT DATA REVIEWED: Yes PATIENT PRESENTS WITH AN IMPLANTABLE OR ATTACHED AGRICULTURE CONSULTANT: No RADIOLOGY DEPARTMENT: Ultrasound PERIPHERAL IV DATA: Not applicable SIGNED BY: Kandi aJcobsen RDMS, TIERNEY October 07, 2024 5:17 PM documented in this encounter [facility] 10-07-2024 Note HNO ID: [id number] Author: KANDI JACOBSEN RT(R) Service: ? Author Type: Technologist Type: Progress Notes Filed: 10/07/2024 17:17 Note Text: Radiology Service Progress Note PATIENT NAME: Gricel Patel DATE OF SERVICE: October 07, 2024 TIME: 5:17 PM PATIENT IDENTITY VERIFICATION COMPLETED USING TWO (2) IDENTIFIERS: Name and Date of confirmed by patient verbally. FALL SCREENING: Has the patient had 2 falls in the last year or 1 fall with injury or currently using an Ambulatory Assistive Device (Walker, Cane, Wheelchair, Crutches, etc.)? No PATIENT GENDER DATA: Assigned female at . status: : No status: NO. PATIENT RELEVANT IMPLANT DATA REVIEWED: Yes PATIENT PRESENTS WITH AN IMPLANTABLE OR ATTACHED AGRICULTURE CONSULTANT: No RADIOLOGY DEPARTMENT: Ultrasound PERIPHERAL IV DATA: Not applicable SIGNED BY: Kandi Jacobsen RDMS, TIERNEY October 07, 2024 5:17 PM [facility] 10-07-2024 Telephone encounter Note Spoke with staff at [place]. They can do the jugular ultrasound but not the effusion ultrasound. [facility] can do the effusion ultrasound. Would this be acceptable? Please advise for scheduling purposes. Stacie Melo [facility] 10-07-2024 Telephone encounter Note Order for the bilateral jugular artery needs changed to vascular lab STAT and will be completed at [facility]. [facility] 10-03-2024 Telephone encounter Note Xray results [facility] 10-03-2024 Miscellaneous Notes Xray results documented in this encounter [facility] 10-03-2024 Note Addended by: Brenda SWANSON on: 10/03/2024 05:20 PM Modules accepted: Orders [facility] 10-03-2024 Miscellaneous Notes Addended by: MELVI SWANSON on: 10/03/2024 05:20 PM Modules accepted: Orders ID October 15 Fernando Owens Dec 06 Kermit Spoke to pt. Has above follow ups. Clarified she is able to walk a flight of stairs and can walk 1/4 mile before needing to stop. Not having Shortness of Breath or coughing. Labs grossly unremarkable though inflammatory markers IP. CXR not yet read but will add on pleural US given appearance of costophrenic angle blunting on image. documented in this encounter [facility] 10-03-2024 Telephone encounter Note ID October 15 Fernando Owens Dec 06 Kermit Spoke to pt. Has above follow ups. Clarified she is able to walk a flight of stairs and can walk 1/4 mile before needing to stop. Not having Shortness of Breath or coughing. Labs grossly unremarkable though inflammatory markers IP. CXR not yet read but will add on pleural US given appearance of costophrenic angle blunting on image. [facility] 10-03-2024 History of Present illness Narrative Radiology Service Progress Note PATIENT NAME: Gricel Patel DATE OF SERVICE: October 03, 2024 TIME: 1:52 PM PATIENT IDENTITY VERIFICATION COMPLETED USING TWO (2) IDENTIFIERS: Name and Date of confirmed by patient verbally. FALL SCREENING: Has the patient had 2 falls in the last year or 1 fall with injury or currently using an Ambulatory Assistive Device (Walker, Cane, Wheelchair, Crutches, etc.)? No PATIENT GENDER DATA: Assigned female at . status: : No status: NO. PATIENT RELEVANT IMPLANT DATA REVIEWED: Not Applicable PATIENT PRESENTS WITH AN IMPLANTABLE OR ATTACHED AGRICULTURE CONSULTANT: No RADIOLOGY DEPARTMENT: General X-ray: Exam(s) Completed: Chest X-Ray PERIPHERAL IV DATA: Not applicable SIGNED BY: RT Reza(Zenia) October 03, 2024 1:52 PM documented in this encounter [facility] 10-03-2024 Note HNO ID: [id number] Author: MIKAYLA LEACH RT (R) Service: ? Author Type: Technologist Type: Progress Notes Filed: 10/03/2024 13:52 Note Text: Radiology Service Progress Note PATIENT NAME: Gricel Patel DATE OF SERVICE: October 03, 2024 TIME: 1:52 PM PATIENT IDENTITY VERIFICATION COMPLETED USING TWO (2) IDENTIFIERS: Name and Date of confirmed by patient verbally. FALL SCREENING: Has the patient had 2 falls in the last year or 1 fall with injury or currently using an Ambulatory Assistive Device (Walker, Cane, Wheelchair, Crutches, etc.)? No PATIENT GENDER DATA: Assigned female at . status: : No status: NO. PATIENT RELEVANT IMPLANT DATA REVIEWED: Not Applicable PATIENT PRESENTS WITH AN IMPLANTABLE OR ATTACHED AGRICULTURE CONSULTANT: No RADIOLOGY DEPARTMENT: General X-ray: Exam(s) Completed: Chest X-Ray PERIPHERAL IV DATA: Not applicable SIGNED BY: RT Reza(Zenia) October 03, 2024 1:52 PM [facility] 10-02-2024 Note Addended by: Brenda SWANSON on: 10/02/2024 02:10 PM Modules accepted: Orders [facility] 10-02-2024 Miscellaneous Notes Addended by: MELVI SWANSON on: 10/02/2024 02:10 PM Modules accepted: Orders documented in this encounter [facility] 10-02-2024 Note Addended by: Brenda SWANSON on: 10/02/2024 01:53 PM Modules accepted: Orders [facility] 10-02-2024 Miscellaneous Notes Addended by: MELVI SWANSON on: 10/02/2024 01:53 PM Modules accepted: Orders Lab add on documented in this encounter [facility] 10-02-2024 Telephone encounter Note Lab add on [facility] 10-02-2024 Instructions Melvi Swanson MD - 10/02/2024 9:40 AM EDT Please follow up with pulmonology, infectious diease and dentistry. Please return in two months for follow up. Please see gynecology Please get labwork and an XRAY and see physical therapy. documented in this encounter [facility] 10-02-2024 History of Present illness Narrative Images from the original note were not included. Family Medicine OUTPATIENT VISIT October 01, 2024 Establish Care CC: Hospital follow up HPI: 39 year old female patient, previously well except hx tobacco abuse, presenting for hospital discharge follow up after admission for pleural effusion. Recent admission to [facility] from 09/07 to 09/16 after presenting with pain under right breast radiating into back. Found to have loculated right effusion-CT CAP showed modest rind of nonspecific right pleural fluid, internal complexity noted, seems loculated. Associated atelectasis of right middle and lower lobe. Pleural fluid studies consistent with exudative/empyema. Cytology negative- and pneumonia and was treated for sepsis. Cultures including blood and pleural studies all negative. Treated with oral steroids, CTX and flagyl. Chest tube placed 09/08, replaced on 09/10 after dislodgement, and s/p lytic therapy on 09/11 and 09/[address] chest showing improvement in loculated fluid collection on 09/14. Drain removed on 09/16. Small remaining pleural effusion on CXR on 09/16. Origin of infection theorized to be possibly 2/2 to recent dental infection-XR mandible showing multiple caries and root canal with apical lucency, with patient advised to f/u with dentistry after discharge. Discharged on augmentin (21 days), flexuril, guaifensin, percocet (15 tabs), nicotine (planning on smoking cessation). Planning for pulmonary (Dr Carmen), infectious disease, and dentistry follow up-schduled. CT October 23. Today's concerns: Since d/c, still having some general fatigue but not specific Shortness of Breath. Her fatigue has been slowly improving over time. Is currently on FMLA. Lives alone usually but been with parents since discharge. Parents helping her with some mobility, showering. Toileting sometimes with help. No falls since discharge. She denies any neck pain or swelling. Did have neck pain during her hospitalization that was mild and only following lytic therapy, and this has now resolved. History of prior infections: none except was ill around last February with flu like symptoms (cough), father also was ill. HIV negative during last admission. Family history of recurrent or serious infections: none Family history of known primary immunodeficiencies: none Still taking flexuril, augmentin, done with percocet. Still smoking pack a day. Since age 15, pack a day. Smoking THC occasionally. Review of Systems PAIN ASSESSMENT: Negative for pain, history of chronic pain, or current treatment for a chronic pain condition. GENERAL: No weight loss, or fevers HEENT: Negative for significant headaches RESPIRATORY: Negative for cough, wheezing, shortness of breath CARDIOVASCULAR: Negative for chest pain, palpitations, PND or orthopnea GI: No nausea, vomiting, or diarrhea or abdominal pain. No NJ bleeding or melana : No history of dysuria, frequency, urgency, or change in urine appearance NEURO: No history of headaches, numbness, weakness, or changes to vision or hearing Health maintenance: Depression Screening Never done Anxiety Screening Never done Hepatitis C Screening Never done HIV Screening Never done DTaP,Tdap,Td Vaccine(1 - Tdap) Never done Hepatitis B Vaccine(1 of 3 - 19+ 3-dose series) Never done Pneumococcal Vaccine(1 of 2 - PCV) Never done Cervical Cancer Screening due on 07/11/2017 Covid-19 Vaccine( - 2023- season) Never done Mammogram Screening due on 2024 Allergies: ALLERGIES Allergen Reactions Vicodin [Hydrocodon* GI Upset Patient c/o nausea and dizziness Medications: amoxicillin-clavulanate potassium (AUGMENTIN) 875-125 mg per tablet Take 1 tablet by mouth two times a day. guaiFENesin (MUCINEX) 600 mg 12 hr tablet Take 600 mg by mouth every 12 hours. naproxen (NAPROSYN) 500 mg tablet Take 1 tablet by mouth two times a day as needed (FOR PAIN - TAKE WITH FOOD.). cyclobenzaprine (FLEXERIL) 10 mg tablet Take 1 tablet by mouth three times a day as needed. nicotine (NICODERM) 14 mg/24 hr Apply 1 patch as directed every 24 hours. Past Medical History: PAST MEDICAL HISTORY Diagnosis Date Infectious mononucleosis Mononucleosis Tobacco abuse since age 15, pack a day Urinary tract infection, site not specified Social History: Social History Tobacco Use Smoking status: Every Day Current packs/day: 1.00 Average packs/day: 1 pack/day for 24.0 years (24.0 ttl pk-yrs) Types: Cigarettes Smokeless tobacco: Current Tobacco comments: Willing to cut down to half pack per da Substance Use Topics Alcohol use: No Drug use: No Family History: Family History Problem Relation Age of Onset Heart Paternal Grandmother HEART PROBLEMS Stroke Maternal Grandmother Diabetes Maternal Grandfather Diabetes Paternal Grandmother Breast Cancer Paternal Aunt None Father None Sister None Brother None Mother BP 112/76 Pulse 76 Temp 36.9 C (98.5 F) (Left Tympanic) Resp 16 Wt 96.1 kg (211 lb 12.8 oz) LMP 12/31/2012 SpO2 97% General: Awake, alert, not in acute distress LIFE TRAINER: Answering questions appropriately. No abnormal posturing or positioning. Speech is normal. Gait is slow, but able to ambulate without assistance. Appears generally deconditioned with mild generalized weakness. RESP: No increased WOB on RA, speaking in full sentences. Mildly diminished breath sounds at right base without added sounds. Wound at site of chest drain appears to be healing well without erythema, bleeding, or drainage. CVS: RRR, No murmur. GI: Abdomen is soft, non distended, non tender. Skin/Other: No rashes or lesions. HEENT: pupils equal. No neck tenderness, pain or swelling. Full ROM. No facial edema or plethora. Extremities: No peripheral edema, swelling or erythema of lower extremities. Labs: Reviewed the following: Pertinent labs as outlined above Labs reviewed, mild anemia, possibly iso infection and inflammation or due to acute blood loss iso chest tube placement. Thrombocytosis possibly reactive BMP relatively unremarkable. HIV negative. Inflammatory markers elevated Imaging: Reviewed the following: Reviewed recent pertinent imaging CXR 09/16/24 1. Right chest tube has been removed. No pneumothorax. 2. Right basilar discoid atelectasis and small right pleural effusion. CTA chest abd pel 09/07/24 1. A modest rind of nonspecific right pleural fluid. Given morphology likely there is some internal complexity to the material. There is some associated atelectasis aspects of the right middle lobe and right lower lobe. 2. No acute finding in the abdomen or pelvis. Assessment/Plan: ASSESSMENT/PLAN: 1. Pleural effusion - ICD9: 511.9, ICD10: J90 (primary diagnosis) 4. Generalized weakness - ICD9: 780.79, ICD10: R53.1 5. Muscular deconditioning - ICD9: 781.99, ICD10: R29.898 7. Fatigue, unspecified type - ICD9: 780.79, ICD10: R53.83 Pt is s/p admission for complicated pleural effusion, PNA and sepsis suspected to be due to dental infection with septic emboli and treated with chest tube and abx w/ steroids and currently on oral abx course. She is HDS, afebrile and overall appears to be clinically improving from a respiratory standpoint, though she is having slowly improving generalized weakness since hospital discharge that I suspect is deconditioning 2/2 to her prolonged hospital admission. Her exam today does have slightly diminished breath sounds at R lung base but without any other evidence on exam for ongoing PNA, and no evidence on exam for IJ thrombus. Septic PNA with loculated pleural effusions from a dental source does raise some concern for Lemierre's syndrome, especially given neck pain during hospitalization however no evidence in history or on exam today for DVT of IJV. Will repeat CXR and labs, continue oral abx, and start outpatient PT and encouraged ongoing mobilization at home as tolerated. Currently on FMLA which seems appropriate based on current level of function, though discussed she should return to work when she is able. 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 - XR CHEST 2V FRONTAL/LAT - C-REACTIVE PROTEIN - SEDIMENTATION RATE, WESTERGREN - AMOXICILLIN 875 MG-POTASSIUM CLAVULANATE 125 MG TABLET - GUAIFENESIN ER 600 MG TABLET, EXTENDED RELEASE 12 HR - CONSULT TO PHYSICAL THERAPY - RENAL FUNCTION PANEL - CONSULT TO PHYSICAL THERAPY - COMPLETE BLOOD COUNT AND DIFFERENTIAL - CONSULT TO PHYSICAL THERAPY - RENAL FUNCTION PANEL - CONSULT TO PHYSICAL THERAPY -DVT US to r/o Lemierre's syndrome -Continue F/U with pulmonology, dentistry, and ID. Has follow up CT chest scheduled October 23. 2. Anemia, unspecified type - ICD9: 285.9, ICD10: D64.9 Suspect possibly 2/2 inflammation and blood loss iso chest tube placement. Will repeat CBC. If ongoing will send further workup. - COMPLETE BLOOD COUNT AND DIFFERENTIAL 3. Encounter for health-related screening - ICD9: V82.9, ICD10: Z13.9 Due for PAP - CONSULT TO GYNECOLOGY 6. Tobacco abuse - ICD9: 305.1, ICD10: Z72.0 - Cessation encouraged. - Physiologic and physical aspects of tobacco addiction as well as strategies for quitting were discussed. - Counseling was given focusing on the harmful effects of this addiction especially given the patient's medical condition(s) which will be worsened because of the chemicals in tobacco. - NICOTINE 14 MG/24 HR DAILY TRANSDERMAL PATCH -Set goal for decrease to 10 cigs/day by our next visit. -due to hx of now resolved mood disorder patient would prefer nicotine to chantix Remainder of plan including medications to be continued as prior to this visit unless noted above. I will reach out if lab testing or imaging is abnormal and requires a change in the plan discussed above. Otherwise, we can review results at follow up. I discussed this with the patient and they are in agreement. Discussed with patient the importance of continuity of care. I encouraged patient to schedule next appointment as below. Discussed that fevers, Shortness of Breath, chills, chest pain should prompt return to ED. Melvi Swanson MD Internal Medicine and Pediatrics [facility] 10/02/2024 10:06 AM Portions of note generated prior to visit. History of illness, past medical and surgical history, family and social history, medications, allergies, labs and imaging reviewed during visit and are updated as appropriate following visit. Future Appointments Date Time Provider Department Center 10/21/2024 8:30 AM Layo Mello, PT PTWS [facility] 12/09/2024 1:00 PM Melvi Swanson MD [facility] Medical Decision Making: Problems: Low: Stable chronic illness Moderate: New problem with uncertain prognosis Data: Unique test result(s) reviewed: 3+ Unique test(s) ordered: 3+ Medical Decision Making Level: 4 - Moderate documented in this encounter [facility] 10-02-2024 Note HNO ID: [id number] Author: MELVI SWANSON MD Service: ? Author Type: Physician Type: Progress Notes Filed: 10/02/2024 13:33 Note Text: Family Medicine OUTPATIENT VISIT October 01, 2024 Establish Care CC: Hospital follow up HPI: 39 year old female patient, previously well except hx tobacco abuse, presenting for hospital discharge follow up after admission for pleural effusion. Recent admission to [facility] from 09/07 to 09/16 after presenting with pain under right breast radiating into back. Found to have loculated right effusion-CT CAP showed modest rind of nonspecific right pleural fluid, internal complexity noted, seems loculated. Associated atelectasis of right middle and lower lobe. Pleural fluid studies consistent with exudative/empyema. Cytology negative- and pneumonia and was treated for sepsis. Cultures including blood and pleural studies all negative. Treated with oral steroids, CTX and flagyl. Chest tube placed 09/08, replaced on 09/10 after dislodgement, and s/p lytic therapy on 09/11 and 09/[address] chest showing improvement in loculated fluid collection on 09/14. Drain removed on 09/16. Small remaining pleural effusion on CXR on 6/23. Origin of infection theorized to be possibly 2/2 to recent dental infection-XR mandible showing multiple caries and root canal with apical lucency, with patient advised to f/u with dentistry after discharge. Discharged on augmentin (21 days), flexuril, guaifensin, percocet (15 tabs), nicotine (planning on smoking cessation). Planning for pulmonary (Dr Carmen), infectious disease, and dentistry follow up-schduled. CT October 23. Today's concerns: Since d/c, still having some general fatigue but not specific Shortness of Breath. Her fatigue has been slowly improving over time. Is currently on FMLA. Lives alone usually but been with parents since discharge. Parents helping her with some mobility, showering. Toileting sometimes with help. No falls since discharge. She denies any neck pain or swelling. Did have neck pain during her hospitalization that was mild and only following lytic therapy, and this has now resolved. History of prior infections: none except was ill around last February with flu like symptoms (cough), father also was ill. HIV negative during last admission. Family history of recurrent or serious infections: none Family history of known primary immunodeficiencies: none Still taking flexuril, augmentin, done with percocet. Still smoking pack a day. Since age 15, pack a day. Smoking THC occasionally. Review of Systems PAIN ASSESSMENT: Negative for pain, history of chronic pain, or current treatment for a chronic pain condition. GENERAL: No weight loss, or fevers HEENT: Negative for significant headaches RESPIRATORY: Negative for cough, wheezing, shortness of breath CARDIOVASCULAR: Negative for chest pain, palpitations, PND or orthopnea GI: No nausea, vomiting, or diarrhea or abdominal pain. No NJ bleeding or melana : No history of dysuria, frequency, urgency, or change in urine appearance NEURO: No history of headaches, numbness, weakness, or changes to vision or hearing Health maintenance: Depression Screening Never done Anxiety Screening Never done Hepatitis C Screening Never done HIV Screening Never done DTaP,Tdap,Td Vaccine(1 - Tdap) Never done Hepatitis B Vaccine(1 of 3 - 19+ 3-dose series) Never done Pneumococcal Vaccine(1 of 2 - PCV) Never done Cervical Cancer Screening due on 07/11/2017 Covid-19 Vaccine(2023- season) Never done Mammogram Screening due on 2024 Allergies: ALLERGIES Allergen Reactions Vicodin [Hydrocodon* GI Upset Patient c/o nausea and dizziness Medications: amoxicillin-clavulanate potassium (AUGMENTIN) 875-125 mg per tablet Take 1 tablet by mouth two times a day. guaiFENesin (MUCINEX) 600 mg 12 hr tablet Take 600 mg by mouth every 12 hours. naproxen (NAPROSYN) 500 mg tablet Take 1 tablet by mouth two times a day as needed (FOR PAIN - TAKE WITH FOOD.). cyclobenzaprine (FLEXERIL) 10 mg tablet Take 1 tablet by mouth three times a day as needed. nicotine (NICODERM) 14 mg/24 hr Apply 1 patch as directed every 24 hours. Past Medical History: PAST MEDICAL HISTORY Diagnosis Date Infectious mononucleosis Mononucleosis Tobacco abuse since age 15, pack a day Urinary tract infection, site not specified Social History: Social History Tobacco Use Smoking status: Every Day Current packs/day: 1.00 Average packs/day: 1 pack/day for 24.0 years (24.0 ttl pk-yrs) Types: Cigarettes Smokeless tobacco: Current Tobacco comments: Willing to cut down to half pack per da Substance Use Topics Alcohol use: No Drug use: No Family History: Family History Problem Relation Age of Onset Heart Paternal Grandmother HEART PROBLEMS Stroke Maternal Grandmother Diabetes Maternal Grandfather Diabetes Paternal Grandmother B (more content not included)... [facility] 09-16-2024 History of Present illness Narrative IV and tele removed from pt. AVS reviewed with pt and mother at bedside. Pt escorted to front by staff. Pt discharged without incident. Nutrition Care Initial Assessment Admitted RT lower lobe Pneumonia Reason for visit: Dietitian Screen: Nutrition Diagnosis: No Nutrition Diagnosis at this time Nutrition Intervention Meal rounds Meals and Snacks Nutrition Prescription: Diet:Continue Regular Nutrition Goals: Tolerate diet with PO intakes >75% most meals Start Date:09/16/2024 Expected End Date:09/20/2024 Nutrition Education: No needs at this time Assessment: Pertinent clinical information: RT lower lobe pneumonia History reviewed. No pertinent past medical history. Past Surgical History: Procedure Laterality Date APPENDECTOMY CV IR INTERVENTIONAL RADIOLOGY Right 09/10/2024 Procedure: VR Chest Tube Right; Surgeon: Deanna Valdes DO; Location: IR LAB; Service: Interventional Radiology; Laterality: Right; Height: 5' 5 Current weight: 93 kg (205 lb 0.4 oz) BMI Body mass index is 34.12 kg/m . Weight hx: Wt Readings from Last 10 Encounters: 09/07/24 93 kg (205 lb 0.4 oz) 09/07/24 90.7 kg (200 lb) Significant Weight Change: No Current diet order: Diet: Regular Recent intake: 75% Current intake meets estimated needs. Barriers to adequate p.o. intakes: No barriers identified Nutrition Related Allergies/Intolerances: No Nutrition Related Allergies noted Cultural or Hoahaoism Dietary Needs :No Cultural or Hoahaoism Dietary needs noted Patient/family comments:selecting menu Difficulty Chewing or Swallowing: No Skin Integrity: Intact GI Function: WDL Fluid Status: WNL Physical Appearance: No signs and symptoms of malnutrition noted Labs: Recent Labs 09/14/24 0458 09/15/24 0738 09/16/24 0441 NA 138 < > 139 K 3.5 < > 3.6 BICARB 27 < > 28 CL 101 < > 104 GLUCOSE 119* < > 139* BUN 11 < > 9 CREATININE 0.69 < > 0.72 CRP 57.1* -- -- < > = values in this interval not displayed. Recent Labs 09/14/24 0458 09/15/24 0738 09/16/24 0441 GLUCOSE 119* 121* 139* No results found for: HGBA1C Home Medications Reviewed: Yes Scheduled Meds: cefTRIAXone (ROCEPHIN) IVPB 2,000 mg Intravenous Q24H enoxaparin (LOVENOX) injection 40 mg Subcutaneous Daily lidocaine 1 patch Transdermal Daily metroNIDAZOLE 500 mg Intravenous Q8H nicotine 1 patch Transdermal Daily polyethylene glycol 17 g Oral Daily senna-docusate 1 tablet Oral BID sodium chloride (PF) 5 mL Intravenous Q8H CAROLYNE Continuous Infusions: Nutrient Depleting Medications: No chronic use of nutrient depleting medications noted. Estimated Energy Needs Total Energy Estimated Needs: 1800-2000kcal Method for Estimating Needs: MStJx1.2 Total Protein Estimated Needs: 75gm Method for Estimating Needs: 1.1gm/kg adj Duane [address] RD [employer] Bundle Lung Expansion Indications: Pulmonary atelectasis (suspected/documented) Levels: Level 1 Criteria : Stable respiratory status with Inspiratory Capacity (IC) greater than or equal to 30% Predicted and Fraction of Inspired Oxygen (FiO2) less than or equal to 40% Management : Prophylactic Treatment: Inspiratory Capacity greater than or equal to 50% Interventions: Supervised Incentive Spirometry daily and every 2 hours as needed (PRN) for hypoxia. 09/16/24 0848 Incentive Spirometry IS Predicted Volume (mL) 2750 mL Incentive Spirometry Achieved (mL) (S) 1450 mL Percent Predicted 53 % Number of breaths per set 10 Number of Sets 1 Pt continues to perform IS by self at least 1 set of 10 every hour and often more than this. Pt states doing a lot better with it and is actively achieving higher volumes. Airway Clearance Indications: Not applicable Levels: Not applicable Jeimy Alvarez RRT Patient Name: Gricel Patel Admit Date: [id number] MR #: [id number] : 1985 Physicians: No, Physician (Family); Randy Garber MD (Referring) Assessment: Patient with 1. Right-sided chest empyema, 2. Pneumonia, 3. Loculated pleural fluid, 4. Leukocytosis, 5. Right-sided chest pain Plan: Continue patient on current therapy Patient on IV ceftriaxone Patient on IV metronidazole Patient status post chest tube insertion. I reviewed blood cultures with no growth Reviewed pleural body fluid with no growth Reviewed pleural fluid cell analysis, with RBC of 13,000, WBC of 42,000, neutrophil 91%. To see if we can get a sputum culture if possible. ESR, C-reactive protein. HIV screening Seems that leukocytosis is improving. Get urine for strep antigen and Legionella I reviewed previous CT scan, and CT scan of today, with improving hydropneumothorax, and also, with right-sided chest tube in place, and small to moderate amount of residual pleural fluid and pleural thickening, with small loculated component of pleural fluid. CT scan: Chest x-ray: With small right pleural effusion with increased conspicuity of right basilar discoid atelectasis lower chest tube in place. Patient quitting vaping, Sputum culture: With mixed zaki. Get Panorex, patient should also follow-up with her dentist. Will continue to follow with you. I discussed with the cargo router Dr. Johnson management plan. I discussed with the mom at the bedside on management plan. Disposition Comments: Patient will be discharged home on oral Augmentin for 3 weeks. Follow-up with clinic in 2 weeks. Subjective: Patient seen today lying quietly on her bed and in no obvious distress. Chest tube removed this afternoon. Patient doing well today. Patient has no fever or chills and is saturating well on room air at 95%. Exam: PACU Vitals 09/16/24 0848 BP: 134/89 Pulse: 81 Resp: 16 Temp: 98.3 F (36.8 C) SpO2: 95% Allergies: Patient has no known allergies. Medications Reviewed. Current Medications[1] Review of Systems: Constitutional: Negative for fatigue, change in appetite, chills and fever. HENT: Negative for congestion and rhinorrhea. Negative for ear pain, sore throat. Eyes: Negative for pain and redness. Respiratory: Negative for cough and shortness of breath. Cardiovascular: Negative for chest pain and palpitations. Gastrointestinal: Negative for abdominal pain, constipation, diarrhea, nausea and vomiting. Genitourinary: Negative for difficulty urinating, dysuria, frequency, hesitancy, flank pain Musculoskeletal: Negative for back pain, neck pain and neck stiffness. Skin: Negative for color change and rash. Neurological: Negative for lightheadedness, dizziness, syncope, weakness and headaches. Psychiatric/Behavioral: Negative for confusion, hallucinations and suicidal ideas. Positives and pertinent negatives as per HPI. PMH/PSH/SH/FH reviewed, no change Chart Reviewed. Exam Findings: ENT: No oral candidiasis Chest: Lungs clear bilaterally, no wheezing, or rales CVS: Normal S1 & S2+, Normal Rhythm Abdomen: Normal symmetry, Soft/non-tender. Benign, BS+ Extremities: No Deformities or Edema Skin: Intact & No Rashes, or excoriations Musculoskeletal: No joint swelling, non tender LIFE TRAINER: Awake, and Ox3 Wound: Samuel Catheter: IV Access: yes I reviewed Medications. I reviewed Labs. XR Chest 1 View Final Result FINDINGS/ 1. Increased density at the right lung base, seems slightly better compared to previous study. The remaining lungs appear normal. 2. The trachea is midline. The aorta has normal contour. The heart size remains normal. The visualized osseous structures are normal. 3. The tubular device along the lower chest remains unchanged. KKV/rf Workstation ID: [id number] XR Chest 1 View Final Result Stable right chest tube. There is no pneumothorax. Stable bandlike atelectasis within the right lower chest and additional opacity at the right lung base secondary to a small right pleural effusion and atelectasis and/or infiltrate. Workstation ID: [id number] CT Chest Thorax With Contrast Final Result 1. Right chest tube unchanged in position. Small to moderate residual right pleural effusion with pleural thickening in the inferolateral right chest with small loculated components posteriorly and along the right major fissure. Small pneumothorax component is unchanged. 2. Nzse-rn-xjjoiycl infiltrative changes and atelectasis in the right lower lobe and right middle lobe, unchanged. Ongoing pneumonia/inflammatory airways disease in this area is a consideration. 3. Minimal atelectasis in the left lower lobe. [employer] Workstation ID: [id number] CT Chest Without Contrast Final Result 1. Right chest tube tip positioned in the medial right cardiophrenic region with significant improvement in the right-sided hydropneumothorax seen on the 09/09/2024 CT. Small to moderate amount of residual pleural fluid and pleural thickening, including small loculated components posteriorly and along the right major fissure. Trace right pneumothorax component also significantly improved. 2. Moderate residual infiltrative changes in the mid to lower right lung, also improved, that could be an area of ongoing pneumonia. Minimal atelectasis in the left lower lobe. DSS/rf Workstation ID: [id number] XR Chest 1 View Final Result Stable right basilar chest tube position. Improved aeration of the right lung base with probable mild residual atelectasis and pleural effusion. No significant pneumothorax identified. ST/tde Workstation ID: [id number] XR Chest 1 View Final Result Stable pleural catheter with the distal tip along the medial aspect of the right lower chest. There is a persistent however smaller, small pneumothorax along the lateral margin of the right lower chest measuring 1.1 cm in transverse dimension. There is persistent patchy and dense consolidation within the right lower chest suggesting atelectasis and/or infiltrate. There is a small amount of pleural fluid along the lateral margin of the right mid chest. Workstation ID: [id number] XR Chest 1 View Final Result Chest tube which appears to be in the right lower chest. Stable heart and mediastinum. Slightly improved right basilar opacity. Slightly increased or new mild left basilar opacity. Right lateral pneumothorax is decreased, now with 1.5 cm pleural separation previously 3 cm. Continued fluid at the right costophrenic sulcus. Workstation ID: [id number] XR Chest 1 View Final Result 1. New larger-caliber drain overlies the right hemidiaphragm. Persistent moderate-sized inferolateral right hydropneumothorax, not significantly changed. 2. Infiltrative changes/consolidation in the right base again noted, concerning for an area of ongoing pneumonia. 3. Mild dependent atelectasis in the left base, unchanged. No new process identified. DSS/ads Workstation ID: [id number] VR Chest Tube Right Final Result Image guided right chest tube placement (24 Tun[place]ian Thal quick) PROCEDURE: INTRAVENOUS MODERATE SEDATION AND MONITORING. IMAGE GUIDED PLACEMENT OF RIGHT CHEST TUBE PHYSICIAN: Deanna Valdes D.O. [facility] [address] [place] [address] [place] [address] (O) [phone] (F) [phone] ANESTHESIA: Intravenous moderate sedation with continuous physiological monitoring was performed utilizing Versed and Fentanyl with personal physician and RN supervision starting at 915 and ending at 935. Continuous noninvasive cardiopulmonary and oxygen saturation monitoring demonstrated stable vital signs throughout the procedure with no evidence of complication. COMPARISON: CT chest 09/09/2024, chest x-ray same day COMPLICATIONS: None. ESTIMATED BLOOD LOSS: Trace. CONTRAST AGENT: NONE RADIATION DOSE: 1.97 mGy FLUOROSCOPY TIME: 0.1 minutes CLINICAL INFORMATION: Loculated right pleural effusion PROCEDURE: The risks, benefits and alternatives were explained to the patient/family/HPOA. Informed consent was obtained. Dose reduction techniques were achieved by using automated exposure control and/or adjustment of mA and/or kV according to patient size and/or use of iterative reconstruction technique. Image guided right chest tube placement Ultrasound showed the complex collection surrounding the right lung posteriorly with locules of air and internal echogenicity. No significant change from the comparison imaging, given technique differences. Skin and subcutaneous tissues were anesthetized at the intended access site. A small skin alexandra was made at this location for needle entry. Then under ultrasound guidance, 18 gauge Chiba was advanced directly into the right pleural effusion was seen to be in good position and light red tinged fluid debris was aspirated. Ultrasound images demonstrate good position of the needle tip. Then under CT guidance, a superstiff Amplatz wire was coiled within the collection and serial dilatation was performed over the wire to advance a 24 Tunisian without quick catheter into the abscess cavity and confirmed to be in appropriate position on post placement fluoroscopic images. Catheter was sutured in place with 0 Prolene pursestring suture, sterile dressings were placed and the catheter was connected to a pleur-evac system. Workstation ID: [id number] CT Chest Without Contrast Final Result 1. There is a decrease [id number] right-sided hydropneumothorax compared to 09/07/2024 but similar to recent x-ray 09/09/2024. Previous small bore right pleural drain has backed out of the pleural space along the right chest wall. 2. Bilateral pulmonary opacities suggesting atelectasis. Superimposed pneumonia is not excluded. 3. Prior granulomatous disease. MPH/lab Workstation ID: [id number] XR Chest 1 View Final Result Right ilu-tc-slzia chest pigtail catheter in place. Possible underlying catheter retraction compared to 09/08/2024. Tip may be in the extrapleural space. Small right hydropneumothorax. Pleural separation at the lateral aspect of the right mid chest measures up to 9 mm. Results were called by Dr. Eric Rayo to Claude LEMA on 09/09/[address]/hff Workstation ID: [id number] XR Chest 1 View Final Result 1. Status post placement of a right pleural drain. 2. No pneumothorax. PRL/sjk Workstation ID: [id number] XR Mandible Less Than 4 Views (Panorex) (Results Pending) XR Chest 1 View (Results Pending) Laboratory and Additional Data Reviewed: Laboratory 09/16/24 8:55 AM Microbiology 09/16/24 8:55 AM Radiology 09/16/24 8:55 AM Medications 09/16/24 8:55 AM Lab Results Component Value Date WBC 9.25 09/16/2024 HGB 11.9 (L) 09/16/2024 HCT 37.0 09/16/2024 MCV 90.2 09/16/2024 PLT 454 (H) 09/16/2024 Lab Results Component Value Date GLUCOSE 139 (H) 09/16/2024 CALCIUM 8.5 09/16/2024 NA 139 09/16/2024 K 3.6 09/16/2024 CL 104 09/16/2024 BUN 9 09/16/2024 CREATININE 0.72 09/16/2024 Problem List Items Addressed This Visit Respiratory * (Principal) Parapneumonic effusion - Primary Relevant Medications hydrOXYzine (ATARAX) tablet 25 mg I discussed my management plans with Patient/and or Family member, and also discussed antibiotics therapy including side effects with Patient/and or Family member. Medical Decision Making: Moderate This note is created with the assistance of a speech-recognition program. While intending to generate a document that actually reflects the content of the visit, the document can still have some errors including those of syntax and sound a- like substitutions which may escape proofreading. In such instances, actual meaning can be extrapolated by contextual derivation. [1] Current Facility-Administered Medications: aluminum-magnesium hydroxide-simethicone (MAALOX PLUS) 200-200-20 mg/5 mL suspension 30 mL, 30 mL, Oral, Q4H PRN, Kassandra Hinton MD cefTRIAXone (ROCEPHIN) IVPB 2 g (premix), 2,000 mg, Intravenous, Q24H, Kassandra Hinton MD, Last Rate: 100 mL/hr at 09/15/24 1447, 2,000 mg at 09/15/24 1447 enoxaparin (LOVENOX) syringe 40 mg, 40 mg, Subcutaneous, Daily, Kassandra Hinton MD, 40 mg at 09/15/24 0839 HYDROmorphone (DILAUDID) injection 1 mg, 1 mg, Intravenous, Q2H PRN, Josephine Pathak CNP, 1 mg at 09/16/24 0814 hydrOXYzine (ATARAX) tablet 25 mg, 25 mg, Oral, TID PRN, aCro Kruger CNP, 25 mg at 09/12/24 1522 lidocaine patch 1 patch, 1 patch, Transdermal, Daily, Caro Kruger CNP, 1 patch at 09/15/24 0839 metroNIDAZOLE (FLAGYL) IVPB 500 mg, 500 mg, Intravenous, Q8H, Kassandra Hinton MD, Stopped at 09/16/24 0623 naloxone (NARCAN) injection 0.1 mg, 0.1 mg, Intravenous, PRN AND Notify physician, , , Until Discontinued AND naloxone (NARCAN) injection 0.4 mg, 0.4 mg, Intravenous, PRN, Juanita Servin CNP nicotine (NICODERM CQ) 21 mg/24 hr 1 patch, 1 patch, Transdermal, Daily, Yumiko Hutchison PA-C, 1 patch at 09/15/24 0840 ondansetron (ZOFRAN-ODT) disintegrating tablet 4 mg, 4 mg, Oral, Q6H PRN OR ondansetron (ZOFRAN) injection 4 mg, 4 mg, Intravenous, Q6H PRN, Kassandra Hinton MD, 4 mg at 09/09/24 1950 oxyCODONE-acetaminophen (PERCOCET) 5-325 mg per tablet 1-2 tablet, 1-2 tablet, Oral, Q4H PRN, Juanita Servin CNP, 2 tablet at 09/16/24 0613 polyethylene glycol (MIRALAX) powder 17 g, 17 g, Oral, Daily, Melanie Bourgeois CNP, 17 g at 09/15/24 0839 senna-docusate (SENNA-S) 8.6-50 mg per tablet 1 tablet, 1 tablet, Oral, BID, Juanita Servin CNP, 1 tablet at 09/15/24 2114 Saline lock IV, , , Continuous AND sodium chloride (PF) (NS) flush 5 mL, 5 mL, Intravenous, PRN, 5 mL at 09/16/24 0541 AND sodium chloride (PF) (NS) flush 5 mL, 5 mL, Intravenous, Q8H CAROLYNE, 5 mL at 09/15/24 2200 AND sodium chloride 0.9% (NS), 0-150 mL/hr, Intravenous, PRN, Kassandra Hinton MD, Last Rate: 25 mL/hr at 09/13/24 1418, 25 mL/hr at 09/13/24 1418 traZODone (DESYREL) tablet 50 mg, 50 mg, Oral, Nightly PRN, Kassandra Hinton MD, 50 mg at 09/15/242113 No current outpatient medications on file. Pulmonary-Critical Care Progress Note: Patient Identification Gricel Patel, 1985 Code Status: Full Code Subjective: Seen at bedside Opening chest tube to suction after lytic therapy - minimal output Will repeat cxr for eval Discussed with patient, will ask CT Surgery to weigh in Would continue abx Objective: Physical Exam: Exam: Gen: nad, a*ox3 CV: rrr, no murmurs Resp: diminished R chest, mproved aeration Chest: R chest tube noted, with serous fluid in tubing - connected to suction Abd: soft, ntnd, +bs MSK: no swelling, no edema, no joint swelling noted Neuro: cn ii-xii grossly intact, strength grossly intact upper/lower/bilateral, follows commands Psych: cooperative, appropriate mood Assessment/Impression: This is a 39 y.o. female with no pmhx. Pulm/Crit is being consulted for R sided empyema, chest tube management. R Pleural Effusion, Moderate - Empyema, m/l Loculated S/p chest tube 09/08, replaced 09/10 Lytic therapy - 09/11, 09/12 R Sided Loculated Pockets / Abscess Suspicion for Abscess with airway tracking to pocket Sepsis, 2/2 to above, improved Acute Hypoxic Resp Failure 2/2 to above, improved RLL Pneumonia - CAP, Aspiration (dental?) R Sided Chest Pain / Pleuritic Chest Pain - improved Tobacco Abuse Disorder / Vape Abuse Obesity Class I Plan/Recommendations: - cxr reviewed, increased RLL / R lower chest opacity - possible continue fluid reaccumulation - will repeat lytic therapy today - monitor output - continue abx therapy - follow up cultures, cytology - encourage sitting up in chair, incentive spirometry - pain control - acetaminophen prn, lidocaine patch to site of chest tube - will consult CT Surgery Code Status: FULL Disposition: ct imaging reviewed, increased effusion on cxr this am - will repeat lytic therapy, consult CT Surg to assist - discussed plan with patient Critical Care Time: 35 mins This Critical Care Time was spent on evaluating, managing and providing care to this critically ill patient. Includes time spent at bedside, reviewing laboratory and radiology findings, discussing plan of care and concerns with ICU staff and consulting services, and making critical decisions regarding patients' response to treatment. This time was exclusive of any procedures performed separately. Date of Service: 09/15/24 Bryan Johnson MD MPH Critical Care Medicine Pulmonary Medicine Vitals/IOs: Temp: [97.8 F (36.6 C)-98.5 F (36.9 C)] 97.9 F (36.6 C) Heart Rate: [74-83] 82 Resp: [15-18] 16 BP: (110-133)/(71-95) 124/85 Temp (24hrs), Av.2 F (36.8 C), Min:97.8 F (36.6 C), Max:98.5 F (36.9 C) Intake/Output last 3 shifts: I/O last 3 completed shifts: In: 2235 [P.O.:580; I.V.:471.7; IV Piggyback:1183.3] Out: 0 Fluid Status: Intake/Output Summary (Last 24 hours) at 09/15/2024 1215 Last data filed at 09/15/2024 0900 Gross per 24 hour Intake 865 ml Output 0 ml Net 865 ml Laboratory: Results from last 7 days Lab Units 09/15/24 0738 09/14/24 0458 09/13/24 0540 09/11/24 0536 09/10/24 0317 09/10/24 0313 09/09/24 1154 WBC K/mcL 10.07 12.08* 13.06* < > -- < > -- HGB g/dL 12.9 13.0 13.6 < > -- < > -- HCT % 39.8 40.2 40.5 < > -- < > -- MCV fL 90.7 90.3 87.7 < > -- < > -- PLT K/mcL 484* 481* 482* < > -- < > -- BUN mg/dL 10 11 8 < > -- < > -- SODIUM mmol/L 137 138 138 < > -- < > -- POTASSIUM mmol/L 3.7 3.5 3.7 < > -- < > -- CHLORIDE mmol/L 102 101 103 < > -- < > -- INR -- -- -- -- 1.3* -- 1.4* < > = values in this interval not displayed. Imaging: Results for orders placed during the hospital encounter of 09/07/24 XR Chest 1 View Narrative EXAMINATION: XR CHEST PA/AP HISTORY: ORDERING SYSTEM PROVIDED HISTORY: Chest tube/empyema, TECHNOLOGIST PROVIDED HISTORY: Illness/Other Reason for exam: Chest tube/empyema Cancer History: u Surgery, RadiationHistory: u Encounter Type: Ongoing Additional signs and symptoms: Chest tube/empyema ORDERING SYSTEM PROVIDED DIAGNOSIS CODES: J18.9 Parapneumonic effusion J91.8 Parapneumonic effusion COMPARISON: Portable chest radiograph dated 09/11/2024. TECHNIQUE: AP upright portable chest radiograph performed. FINDINGS: Stable pleural catheter with the distal tip along the medial aspect of the right lower chest. There is a persistent however smaller, small pneumothorax along the lateral margin of the right lower chest measuring 1.1 cm in transverse dimension. There is persistent patchy and dense consolidation within the right lower chest suggesting atelectasis and/or infiltrate. There is a small amount of pleural fluid along the lateral margin of the right mid chest. There is no pulmonary vascular congestion. There is a small calcified granuloma laterally within the left upper chest. There is no acute osseous abnormality. There is slight scoliosis. There are mild degenerative changes along the spine. There is calcific tendinitis distal aspect of the right supraspinatus tendon. Impression Stable pleural catheter with the distal tip along the medial aspect of the right lower chest. There is a persistent however smaller, small pneumothorax along the lateral margin of the right lower chest measuring 1.1 cm in transverse dimension. There is persistent patchy and dense consolidation within the right lower chest suggesting atelectasis and/or infiltrate. There is a small amount of pleural fluid along the lateral margin of the right mid chest. Workstation ID: [id number] XR Chest 1 View Narrative EXAMINATION: XR CHEST PA/AP 09/11/2024 11:32 am HISTORY: ORDERING SYSTEM PROVIDED HISTORY: Chest tube, TECHNOLOGIST PROVIDED HISTORY: Illness/Other Reason for exam: chest tube f/u Cancer History: u Surgery, RadiationHistory: u Encounter Type: Subsequent/Follow-up Additional signs and symptoms: n ORDERING SYSTEM PROVIDED DIAGNOSIS CODES: J18.9 Parapneumonic effusion J91.8 Parapneumonic effusion COMPARISON: 09/10/2024 FINDINGS: Portable AP upright Impression Chest tube which appears to be in the right lower chest. Stable heart and mediastinum. Slightly improved right basilar opacity. Slightly increased or new mild left basilar opacity. Right lateral pneumothorax is decreased, now with 1.5 cm pleural separation previously 3 cm. Continued fluid at the right costophrenic sulcus. Workstation ID: [id number] XR Chest 1 View Narrative EXAMINATION: PORTABLE CHEST - 09/10/2024 COMPARISON: CT chest without IV contrast and chest radiograph examinations dated 09/09/2024. ADDITIONAL HISTORY: status post chest tube placement FINDINGS: Small-caliber pigtail drain previously seen overlying the inferolateral right chest is no longer seen. Larger-caliber drain overlies the right hemidiaphragm. Persistent inferolateral right hydropneumothorax, measuring 3.0 cm in width, previously measuring 3.0 cm. Dense consolidation and infiltrative changes in the right base again noted, unchanged. Mild dependent atelectasis in the left base again noted, also unchanged. Stable cardiomediastinal contours. Left costophrenic angle remains sharp. No suspicious osseous lesion. Impression 1. New larger-caliber drain overlies the right hemidiaphragm. Persistent moderate-sized inferolateral right hydropneumothorax, not significantly changed. 2. Infiltrative changes/consolidation in the right base again noted, concerning for an area of ongoing pneumonia. 3. Mild dependent atelectasis in the left base, unchanged. No new process identified. DSS/ads Workstation ID: [id number] XR Chest 1 View Final Result Stable right chest tube. There is no pneumothorax. Stable bandlike atelectasis within the right lower chest and additional opacity at the right lung base secondary to a small right pleural effusion and atelectasis and/or infiltrate. Workstation ID: [id number] CT Chest Thorax With Contrast Final Result 1. Right chest tube unchanged in position. Small to moderate residual right pleural effusion with pleural thickening in the inferolateral right chest with small loculated components posteriorly and along the right major fissure. Small pneumothorax component is unchanged. 2. Hzlp-sx-asiitmcp infiltrative changes and atelectasis in the right lower lobe and right middle lobe, unchanged. Ongoing pneumonia/inflammatory airways disease in this area is a consideration. 3. Minimal atelectasis in the left lower lobe. DSS/[employer] Workstation ID: [id number] CT Chest Without Contrast Final Result 1. Right chest tube tip positioned in the medial right cardiophrenic region with significant improvement in the right-sided hydropneumothorax seen on the 09/09/2024 CT. Small to moderate amount of residual pleural fluid and pleural thickening, including small loculated components posteriorly and along the right major fissure. Trace right pneumothorax component also significantly improved. 2. Moderate residual infiltrative changes in the mid to lower right lung, also improved, that could be an area of ongoing pneumonia. Minimal atelectasis in the left lower lobe. DSS/rf Workstation ID: [id number] XR Chest 1 View Final Result Stable right basilar chest tube position. Improved aeration of the right lung base with probable mild residual atelectasis and pleural effusion. No significant pneumothorax identified. ST/tde Workstation ID: [id number] XR Chest 1 View Final Result Stable pleural catheter with the distal tip along the medial aspect of the right lower chest. There is a persistent however smaller, small pneumothorax along the lateral margin of the right lower chest measuring 1.1 cm in transverse dimension. There is persistent patchy and dense consolidation within the right lower chest suggesting atelectasis and/or infiltrate. There is a small amount of pleural fluid along the lateral margin of the right mid chest. Workstation ID: [id number] XR Chest 1 View Final Result Chest tube which appears to be in the right lower chest. Stable heart and mediastinum. Slightly improved right basilar opacity. Slightly increased or new mild left basilar opacity. Right lateral pneumothorax is decreased, now with 1.5 cm pleural separation previously 3 cm. Continued fluid at the right costophrenic sulcus. Workstation ID: [id number] XR Chest 1 View Final Result 1. New larger-caliber drain overlies the right hemidiaphragm. Persistent moderate-sized inferolateral right hydropneumothorax, not significantly changed. 2. Infiltrative changes/consolidation in the right base again noted, concerning for an area of ongoing pneumonia. 3. Mild dependent atelectasis in the left base, unchanged. No new process identified. DSS/ads Workstation ID: [id number] VR Chest Tube Right Final Result Image guided right chest tube placement (24 Tunisian Thal quick) PROCEDURE: INTRAVENOUS MODERATE SEDATION AND MONITORING. IMAGE GUIDED PLACEMENT OF RIGHT CHEST TUBE PHYSICIAN: Deanna Valdes D.O. [facility], [place] [address] (O) [phone] (F) [phone] ANESTHESIA: Intravenous moderate sedation with continuous physiological monitoring was performed utilizing Versed and Fentanyl with personal physician and RN supervision starting at 915 and ending at 935. Continuous noninvasive cardiopulmonary and oxygen saturation monitoring demonstrated stable vital signs throughout the procedure with no evidence of complication. COMPARISON: CT chest 09/09/2024, chest x-ray same day COMPLICATIONS: None. ESTIMATED BLOOD LOSS: Trace. CONTRAST AGENT: NONE RADIATION DOSE: 1.97 mGy FLUOROSCOPY TIME: 0.1 minutes CLINICAL INFORMATION: Loculated right pleural effusion PROCEDURE: The risks, benefits and alternatives were explained to the patient/family/HPOA. Informed consent was obtained. Dose reduction techniques were achieved by using automated exposure control and/or adjustment of mA and/or kV according to patient size and/or use of iterative reconstruction technique. Image guided right chest tube placement Ultrasound showed the complex collection surrounding the right lung posteriorly with locules of air and internal echogenicity. No significant change from the comparison imaging, given technique differences. Skin and subcutaneous tissues were anesthetized at the intended access site. A small skin alexandra was made at this location for needle entry. Then under ultrasound guidance, 18 gauge Chiba was advanced directly into the right pleural effusion was seen to be in good position and light red tinged fluid debris was aspirated. Ultrasound images demonstrate good position of the needle tip. Then under CT guidance, a superstiff Amplatz wire was coiled within the collection and serial dilatation was performed over the wire to advance a 24 Tunisian without quick catheter into the abscess cavity and confirmed to be in appropriate position on post placement fluoroscopic images. Catheter was sutured in place with 0 Prolene pursestring suture, sterile dressings were placed and the catheter was connected to a pleur-evac system. Workstation ID: [id number] CT Chest Without Contrast Final Result 1. There is a decrease dwllj-kd-smpoouby right-sided hydropneumothorax compared to 09/07/2024 but similar to recent x-ray 09/09/2024. Previous small bore right pleural drain has backed out of the pleural space along the right chest wall. 2. Bilateral pulmonary opacities suggesting atelectasis. Superimposed pneumonia is not excluded. 3. Prior granulomatous disease. MPH/lab Workstation ID: [id number] XR Chest 1 View Final Result Right rlo-yf-pehys chest pigtail catheter in place. Possible underlying catheter retraction compared to 09/08/2024. Tip may be in the extrapleural space. Small right hydropneumothorax. Pleural separation at the lateral aspect of the right mid chest measures up to 9 mm. Results were called by Dr. Eric Rayo to Claude LEMA on 09/09/2024 at 0920. /f Workstation ID: [id number] XR Chest 1 View Final Result 1. Status post placement of a right pleural drain. 2. No pneumothorax. PRL/sjk Workstation ID: [id number] XR Mandible Less Than 4 Views (Panorex) (Results Pending) XR Chest 1 View (Results Pending) Current Medications: cefTRIAXone (ROCEPHIN) IVPB 2,000 mg Intravenous Q24H enoxaparin (LOVENOX) injection 40 mg Subcutaneous Daily lidocaine 1 patch Transdermal Daily metroNIDAZOLE 500 mg Intravenous Q8H nicotine 1 patch Transdermal Daily polyethylene glycol 17 g Oral Daily senna-docusate 1 tablet Oral BID sodium chloride (PF) 5 mL Intravenous Q8H CAROLYNE aluminum-magnesium hydroxide-simethicone, HYDROmorphone, hydrOXYzine, nalOXone AND Notify physician AND naloxone, ondansetron OR ondansetron, oxyCODONE-acetaminophen, Saline lock IV AND sodium chloride (PF) AND sodium chloride (PF) AND sodium chloride 0.9 %, traZODone [facility] PROGRESS NOTE Patient Name: Gricel Patel : 1985 Assessment and Plan Gricel Patel is a 38 y.o. 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 Sepsis, POA, resolved Right lung loculated effusion Right lower lobe pneumonia Possibly secondary to dental infection. CT CAP reviewed-modest rind of nonspecific right pleural fluid, internal complexity noted, seems loculated. Associated atelectasis of right middle and lower lobe. Pleural fluid studies consistent with exudative/empyema. Cytology negative. Blood, sputum, and aerobic/anaerobic pleural fluid cultures NTD. Completed course of oral steroids. On Ceftriaxone/Flagyl (started on 09/07). Chest tube placement on 09/08 - dislodged, replaced on 09/10 per IR. Intrapleural lytic therapy 09/11 -09/[address] chest on 09/14 with significant improvement in right sided loculated effusion. Moderate amount of residual pleural fluid with loculated components. Intrapleural lytic therapy 09/14, 09/15 Continue good pulmonary hygiene: OOB, cough and deep breathe, IS. Pulmonary following. Pain management. Nicotine dependence Smokes a pack per day and vapes. Smoking cessation Obesity -BMI 34.12 Encourage diet and exercise Discharge Planning Patient Medically Ready for Discharge: no Patient requires continued hospitalization due to: Pain management, IV Antibiotics, Intrapleural lytics and chest tube. Expected Date of Discharge: TBD Expected Discharge Location: Home Quality Measures DVT Prophylaxis: lovenox Samuel Catheter: absent Code Status Full Code Subjective Patient resting in bed, still endorses pain at chest tube site, but feeling better. No reported fever or chills. Decreased drainage in CT Objective BP 129/86 Pulse 74 Temp 97.8 F (36.6 C) (Oral) Resp 16 Ht 5' 5 Wt 93 kg (205 lb 0.4 oz) LMP (LMP Unknown) Comment: preg test done and neg SpO2 93% BMI 34.12 kg/m Physical Examination General Appearance: alert; well appearing; in moderate acute distress HEENT: Head- normocephalic; Eyes- EOMI, sclera anicteric; Throat- mucous membranes moist Cardiovascular: regular rate and rhythm; normal S1, S2; no murmurs, rubs, clicks or gallops; peripheral edema absent Respiratory: lungs clear to auscultation; without wheezes, rales or rhonchi; on room air; pain with palpation to back Abdomen: soft, non-tender, non-distended Neurological: oriented x 3; normal speech; no focal findings or movement disorder noted Musculoskeletal: no significant deformity or tenderness to palpation Skin: normal coloration, Right chest tube intact with suction , no crepitus noted Psych: normal mood and affect Pulmonary-Critical Care Progress Note: Patient Identification Gricel Patel, 1985 Code Status: Full Code Subjective: Seen at bedside Discussed CT Chest w/o results Plan for CT Chest w/ Improvement of fluid/empyema with response Objective: Physical Exam: Exam: Gen: nad, a*ox3 CV: rrr, no murmurs Resp: diminished R chest, mproved aeration Chest: R chest tube noted, with serous fluid in tubing - connected to suction Abd: soft, ntnd, +bs MSK: no swelling, no edema, no joint swelling noted Neuro: cn ii-xii grossly intact, strength grossly intact upper/lower/bilateral, follows commands Psych: cooperative, appropriate mood Assessment/Impression: This is a 39 y.o. female with no pmhx. Pulm/Crit is being consulted for R sided empyema, chest tube management. R Pleural Effusion, Moderate - Empyema, m/l Loculated S/p chest tube 09/08, replaced 09/10 Lytic therapy - 09/11, 09/12 R Chest Nodules/Mass/Abscess - seen on Non Contrast CT Sepsis, 2/2 to above, improved Acute Hypoxic Resp Failure 2/2 to above, improved RLL Pneumonia - CAP, Aspiration (dental?) R Sided Chest Pain / Pleuritic Chest Pain - improved Tobacco Abuse Disorder / Vape Abuse Obesity Class I Plan/Recommendations: - cxr reviewed, improvement - no ptx, R chest tube in position - will repeat lytic therapy today - monitor output - continue abx therapy - follow up cultures, cytology - encourage sitting up in chair, incentive spirometry - pain control - acetaminophen prn, lidocaine patch to site of chest tube - m/l repeat CT Chest w/o 09/14 Code Status: FULL Disposition: ct chest w/o reviewed, will obtain w/ contrast - possible Addendum -discussed CT Contrast imaging with patient and mom/family in room - will consult ID, spoke - will put chest to water seal if output has decreased Critical Care Time: 33 mins This Critical Care Time was spent on evaluating, managing and providing care to this critically ill patient. Includes time spent at bedside, reviewing laboratory and radiology findings, discussing plan of care and concerns with ICU staff and consulting services, and making critical decisions regarding patients' response to treatment. This time was exclusive of any procedures performed separately. Date of Service: 09/14/24 Bryan Johnson MD MPH Critical Care Medicine Pulmonary Medicine Vitals/IOs: Temp: [97.7 F (36.5 C)-98.6 F (37 C)] 98.3 F (36.8 C) Heart Rate: [79-115] 82 Resp: [16-18] 17 BP: (91-143)/(64-84) 112/76 Temp (24hrs), Av F (36.7 C), Min:97.7 F (36.5 C), Max:98.6 F (37 C) Intake/Output last 3 shifts: I/O last 3 completed shifts: In: 2245.2 [P.O.:1239; I.V.:206.2; IV Piggyback:800] Out: - Fluid Status: Intake/Output Summary (Last 24 hours) at 09/14/2024 1447 Last data filed at 09/14/2024 0900 Gross per 24 hour Intake 1888.99 ml Output -- Net 1888.99 ml Laboratory: Results from last 7 days Lab Units 09/14/24 0458 09/13/24 0540 09/12/24 0436 09/11/24 0536 09/10/24 0317 09/10/24 0313 09/09/24 1154 09/08/24 0601 WBC K/mcL 12.08* 13.06* 14.80* < > -- < > -- 19.96* HGB g/dL 13.0 13.6 12.4 < > -- < > -- 12.2 HCT % 40.2 40.5 38.0 < > -- < > -- 37.0 MCV fL 90.3 87.7 88.8 < > -- < > -- 90.0 PLT K/mcL 481* 482* 435* < > -- < > -- 393 BUN mg/dL 11 8 8 < > -- < > -- 11 SODIUM mmol/L 138 138 140 < > -- < > -- 137 POTASSIUM mmol/L 3.5 3.7 3.5 < > -- < > -- 3.6 CHLORIDE mmol/L 101 103 106 < > -- < > -- 104 MAGNESIUM mg/dL -- -- -- -- -- -- -- 1.8 INR -- -- -- -- 1.3* -- 1.4* -- < > = values in this interval not displayed. Imaging: Results for orders placed during the hospital encounter of 09/07/24 XR Chest 1 View Narrative EXAMINATION: XR CHEST PA/AP HISTORY: ORDERING SYSTEM PROVIDED HISTORY: Chest tube/empyema, TECHNOLOGIST PROVIDED HISTORY: Illness/Other Reason for exam: Chest tube/empyema Cancer History: u Surgery, RadiationHistory: u Encounter Type: Ongoing Additional signs and symptoms: Chest tube/empyema ORDERING SYSTEM PROVIDED DIAGNOSIS CODES: J18.9 Parapneumonic effusion J91.8 Parapneumonic effusion COMPARISON: Portable chest radiograph dated 09/11/2024. TECHNIQUE: AP upright portable chest radiograph performed. FINDINGS: Stable pleural catheter with the distal tip along the medial aspect of the right lower chest. There is a persistent however smaller, small pneumothorax along the lateral margin of the right lower chest measuring 1.1 cm in transverse dimension. There is persistent patchy and dense consolidation within the right lower chest suggesting atelectasis and/or infiltrate. There is a small amount of pleural fluid along the lateral margin of the right mid chest. There is no pulmonary vascular congestion. There is a small calcified granuloma laterally within the left upper chest. There is no acute osseous abnormality. There is slight scoliosis. There are mild degenerative changes along the spine. There is calcific tendinitis distal aspect of the right supraspinatus tendon. Impression Stable pleural catheter with the distal tip along the medial aspect of the right lower chest. There is a persistent however smaller, small pneumothorax along the lateral margin of the right lower chest measuring 1.1 cm in transverse dimension. There is persistent patchy and dense consolidation within the right lower chest suggesting atelectasis and/or infiltrate. There is a small amount of pleural fluid along the lateral margin of the right mid chest. Workstation ID: [id number] XR Chest 1 View Narrative EXAMINATION: XR CHEST PA/AP 09/11/2024 11:32 am HISTORY: ORDERING SYSTEM PROVIDED HISTORY: Chest tube, TECHNOLOGIST PROVIDED HISTORY: Illness/Other Reason for exam: chest tube f/u Cancer History: u Surgery, RadiationHistory: u Encounter Type: Subsequent/Follow-up Additional signs and symptoms: n ORDERING SYSTEM PROVIDED DIAGNOSIS CODES: J18.9 Parapneumonic effusion J91.8 Parapneumonic effusion COMPARISON: 09/10/2024 FINDINGS: Portable AP upright Impression Chest tube which appears to be in the right lower chest. Stable heart and mediastinum. Slightly improved right basilar opacity. Slightly increased or new mild left basilar opacity. Right lateral pneumothorax is decreased, now with 1.5 cm pleural separation previously 3 cm. Continued fluid at the right costophrenic sulcus. Workstation ID: [id number] XR Chest 1 View Narrative EXAMINATION: PORTABLE CHEST - 09/10/2024 COMPARISON: CT chest without IV contrast and chest radiograph examinations dated 09/09/2024. ADDITIONAL HISTORY: status post chest tube placement FINDINGS: Small-caliber pigtail drain previously seen overlying the inferolateral right chest is no longer seen. Larger-caliber drain overlies the right hemidiaphragm. Persistent inferolateral right hydropneumothorax, measuring 3.0 cm in width, previously measuring 3.0 cm. Dense consolidation and infiltrative changes in the right base again noted, unchanged. Mild dependent atelectasis in the left base again noted, also unchanged. Stable cardiomediastinal contours. Left costophrenic angle remains sharp. No suspicious osseous lesion. Impression 1. New larger-caliber drain overlies the right hemidiaphragm. Persistent moderate-sized inferolateral right hydropneumothorax, not significantly changed. 2. Infiltrative changes/consolidation in the right base again noted, concerning for an area of ongoing pneumonia. 3. Mild dependent atelectasis in the left base, unchanged. No new process identified. [employer]/ads Workstation ID: [id number] XR Chest 1 View Final Result Stable right basilar chest tube position. Improved aeration of the right lung base with probable mild residual atelectasis and pleural effusion. No significant pneumothorax identified. ST/tde Workstation ID: [id number] XR Chest 1 View Final Result Stable pleural catheter with the distal tip along the medial aspect of the right lower chest. There is a persistent however smaller, small pneumothorax along the lateral margin of the right lower chest measuring 1.1 cm in transverse dimension. There is persistent patchy and dense consolidation within the right lower chest suggesting atelectasis and/or infiltrate. There is a small amount of pleural fluid along the lateral margin of the right mid chest. Workstation ID: [id number] XR Chest 1 View Final Result Chest tube which appears to be in the right lower chest. Stable heart and mediastinum. Slightly improved right basilar opacity. Slightly increased or new mild left basilar opacity. Right lateral pneumothorax is decreased, now with 1.5 cm pleural separation previously 3 cm. Continued fluid at the right costophrenic sulcus. Workstation ID: [id number] XR Chest 1 View Final Result 1. New larger-caliber drain overlies the right hemidiaphragm. Persistent moderate-sized inferolateral right hydropneumothorax, not significantly changed. 2. Infiltrative changes/consolidation in the right base again noted, concerning for an area of ongoing pneumonia. 3. Mild dependent atelectasis in the left base, unchanged. No new process identified. [employer] Workstation ID: [id number] VR Chest Tube Right Final Result Image guided right chest tube placement (24 Tun[place]ian Thal quick) PROCEDURE: INTRAVENOUS MODERATE SEDATION AND MONITORING. IMAGE GUIDED PLACEMENT OF RIGHT CHEST TUBE PHYSICIAN: Deanna Valdes D.O. [facility] [address] [place] [address] (O) [phone] (F) [phone] ANESTHESIA: Intravenous moderate sedation with continuous physiological monitoring was performed utilizing Versed and Fentanyl with personal physician and RN supervision starting at 915 and ending at 935. Continuous noninvasive cardiopulmonary and oxygen saturation monitoring demonstrated stable vital signs throughout the procedure with no evidence of complication. COMPARISON: CT chest 09/09/2024, chest x-ray same day COMPLICATIONS: None. ESTIMATED BLOOD LOSS: Trace. CONTRAST AGENT: NONE RADIATION DOSE: 1.97 mGy FLUOROSCOPY TIME: 0.1 minutes CLINICAL INFORMATION: Loculated right pleural effusion PROCEDURE: The risks, benefits and alternatives were explained to the patient/family/HPOA. Informed consent was obtained. Dose reduction techniques were achieved by using automated exposure control and/or adjustment of mA and/or kV according to patient size and/or use of iterative reconstruction technique. Image guided right chest tube placement Ultrasound showed the complex collection surrounding the right lung posteriorly with locules of air and internal echogenicity. No significant change from the comparison imaging, given technique differences. Skin and subcutaneous tissues were anesthetized at the intended access site. A small skin alexandra was made at this location for needle entry. Then under ultrasound guidance, 18 gauge Chiba was advanced directly into the right pleural effusion was seen to be in good position and light red tinged fluid debris was aspirated. Ultrasound images demonstrate good position of the needle tip. Then under CT guidance, a superstiff Amplatz wire was coiled within the collection and serial dilatation was performed over the wire to advance a 24 Tunisian without quick catheter into the abscess cavity and confirmed to be in appropriate position on post placement fluoroscopic images. Catheter was sutured in place with 0 Prolene pursestring suture, sterile dressings were placed and the catheter was connected to a pleur-evac system. Workstation ID: [id number] CT Chest Without Contrast Final Result 1. There is a decrease mqabo-ec-jstecfmc right-sided hydropneumothorax compared to 09/07/2024 but similar to recent x-ray 09/09/2024. Previous small bore right pleural drain has backed out of the pleural space along the right chest wall. 2. Bilateral pulmonary opacities suggesting atelectasis. Superimposed pneumonia is not excluded. 3. Prior granulomatous disease. MPH/lab Workstation ID: [id number] XR Chest 1 View Final Result Right gnz-bs-ponrj chest pigtail catheter in place. Possible underlying catheter retraction compared to 09/08/2024. Tip may be in the extrapleural space. Small right hydropneumothorax. Pleural separation at the lateral aspect of the right mid chest measures up to 9 mm. Results were called by Dr. Eric Rayo to Claude LEMA on 09/09/2024 at 0920. /[facility] Workstation ID: [id number] XR Chest 1 View Final Result 1. Status post placement of a right pleural drain. 2. No pneumothorax. PRL/sjk Workstation ID: [id number] CT Chest Without Contrast (Results Pending) CT Chest Thorax With Contrast (Results Pending) Current Medications: cefTRIAXone (ROCEPHIN) IVPB 2,000 mg Intravenous Q24H enoxaparin (LOVENOX) injection 40 mg Subcutaneous Daily lidocaine 1 patch Transdermal Daily metroNIDAZOLE 500 mg Intravenous Q8H nicotine 1 patch Transdermal Daily polyethylene glycol 17 g Oral Daily senna-docusate 1 tablet Oral BID sodium chloride (PF) 5 mL Intravenous Q8H CAROLYNE aluminum-magnesium hydroxide-simethicone, HYDROmorphone, hydrOXYzine, nalOXone AND Notify physician AND naloxone, ondansetron OR ondansetron, oxyCODONE-acetaminophen, Saline lock IV AND sodium chloride (PF) AND sodium chloride (PF) AND sodium chloride 0.9 %, traZODone Spiritual Care Progress Note Completed by: Ariane Shea Person(s) Present During this Visit: Patient Time Spent in Direct Patient Care: 15 Narrative: Carbonation Equipment Tender visited pt Misti while rounding on the unit. Pt was very nice, looking forward to going home as soon as the doctor feels that she is ready. Carbonation Equipment Tender provided compassionate presence and remains available upon request for support. Patients Response to Pastoral Care: Appeared to be well-engaged, Expressed Gratitude for Visit Planning for Future Visits: PRN, Pt aware to contact Carbonation Equipment Tender as needed 09/14/24 1300 Visit Background Visit With Patient Visit By Staff Carbonation Equipment Tender Visit Progression Introduction Visit Requested By Carbonation Equipment Tender Initiated Visit Source Carbonation Equipment Tender Initiated Visit Type Inpatient;Rounding Visit Circumstances and Events Routine Visit Visit Length (minutes) 15 Patient's Response to Pastoral Care Appeared to be well-engaged;Expressed Gratitude for Visit Visit Planning PRN;Pt aware to contact Carbonation Equipment Tender as needed Spiritual Assessment Not assessed during visit Hoahaoism Assessment Not assessed during this visit Family assessment provided? Not assessed during this visit Ariane Shea MA Staff [employer]ation Equipment Tender Pastoral Care Department [facility] [phone] On-call [facility] PROGRESS NOTE Patient Name: Gricel Patel : 1985 Assessment and Plan Gricel Patel is a 38 y.o. 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 Sepsis, POA Right lung loculated effusion Right lower lobe pneumonia Severe pleuritic pain Atelectasis Leukocytosis WBC-19.96->15.97->14.80->13.06->[address] CAP reviewed-modest rind of nonspecific right pleural fluid, internal complexity noted, seems loculated. Associated atelectasis of right middle and lower lobe. Sputum Cx-p Blood Cx-no growth Body fluid Cx- no growth Etiology unclear but probably dental, she needs couple teeth extracted. Ceftriaxone and Flagyl for anaerobic coverage. No association with healthcare institution, no need for MRSA coverage at this time. S/p oral steroids IV Toradol S/p IV Hydration Pulmonary consult. Discussed with Dr. Schofield. IR consult S/p Chest tube placement 09/08/24, 09/10/24 Pain management CM Lytic therapy started 09/11,09/12, 09/13 Incentive Spirometry Chest x-ray 09/10/24-New larger-caliber drain overlies the right hemidiaphragm. Persistent moderate-sized inferolateral right hydropneumothorax, not significantly changed. CT chest -pending Nicotine dependence Smokes a pack per day and vapes. Patient does not want any patch at this time. Smoking cessation Obesity -BMI 34.12 Encourage diet and exercise Discharge Planning Patient Medically Ready for Discharge: no Patient requires continued hospitalization due to: Pain management, IV Antibiotics Expected Date of Discharge: 09/13/24 Expected Discharge Location: Home Quality Measures DVT Prophylaxis: lovenox Samuel Catheter: absent Code Status Full Code Subjective Patient resting in bed, still endorses pain at chest tube site, but feeling better. No reported fever or chills. Decreased drainage in CT Objective BP 112/76 Pulse 82 Temp 98.3 F (36.8 C) (Oral) Resp 18 Ht 5' 5 Wt 93 kg (205 lb 0.4 oz) LMP (LMP Unknown) Comment: preg test done and neg SpO2 95% BMI 34.12 kg/m Physical Examination General Appearance: alert; well appearing; in moderate acute distress HEENT: Head- normocephalic; Eyes- EOMI, sclera anicteric; Throat- mucous membranes moist Cardiovascular: regular rate and rhythm; normal S1, S2; no murmurs, rubs, clicks or gallops; peripheral edema absent Respiratory: lungs clear to auscultation; without wheezes, rales or rhonchi; on room air; pain with palpation to back Abdomen: soft, non-tender, non-distended Neurological: oriented x 3; normal speech; no focal findings or movement disorder noted Musculoskeletal: no significant deformity or tenderness to palpation Skin: normal coloration, Right chest tube intact with suction , no crepitus noted Psych: normal mood and affect Pulmonary-Critical Care Progress Note: Patient Identification Gricel Patel, 1985 Code Status: Full Code Subjective: Seen at bedside Multiple family members present, as patients birthday Feeling better Seen during reopening of ct drain after lytic therapy Objective: Physical Exam: Exam: Gen: nad, a*ox3 CV: rrr, no murmurs Resp: diminished R chest, Chest: R chest tube noted, with serous fluid in tubing - connected to suction Abd: soft, ntnd, +bs MSK: no swelling, no edema, no joint swelling noted Neuro: cn ii-xii grossly intact, strength grossly intact upper/lower/bilateral, follows commands Psych: cooperative, appropriate mood Assessment/Impression: This is a 39 y.o. female with no pmhx. Pulm/Crit is being consulted for R sided empyema, chest tube management. R Pleural Effusion, Moderate - Empyema, m/l Loculated S/p chest tube 09/08, replaced 09/10 Lytic therapy - 09/11, 09/12 Sepsis, 2/2 to above, improved Acute Hypoxic Resp Failure 2/2 to above RLL Pneumonia - CAP, Aspiration (dental?) R Sided Chest Pain / Pleuritic Chest Pain - improved Tobacco Abuse Disorder / Vape Abuse Obesity Class I Plan/Recommendations: - cxr reviewed, improvement - no ptx, R chest tube in position - will repeat lytic therapy today - monitor output - continue abx therapy - follow up cultures, cytology - encourage sitting up in chair, incentive spirometry - pain control - acetaminophen prn, lidocaine patch to site of chest tube - m/l repeat CT Chest w/o 09/14 Code Status: FULL Disposition: repeat lytic therapy today, still with >100cc drainage, repeat cxr in am Critical Care Time: 29 mins This Critical Care Time was spent on evaluating, managing and providing care to this critically ill patient. Includes time spent at bedside, reviewing laboratory and radiology findings, discussing plan of care and concerns with ICU staff and consulting services, and making critical decisions regarding patients' response to treatment. This time was exclusive of any procedures performed separately. Date of Service: 09/13/24 Bryan Johnson MD MPH Critical Care Medicine Pulmonary Medicine Vitals/IOs: Temp: [97.9 F (36.6 C)-99.2 F (37.3 C)] 97.9 F (36.6 C) Heart Rate: [80-115] 115 Resp: [15-18] 16 BP: (117-155)/(77-101) 117/77 Temp (24hrs), Av.5 F (36.9 C), Min:97.9 F (36.6 C), Max:99.2 F (37.3 C) Intake/Output last 3 shifts: I/O last 3 completed shifts: In: 580 [P.O.:580] Out: 300 [Chest Tube:300] Fluid Status: Intake/Output Summary (Last 24 hours) at 2024 0469 Last data filed at 2024 1140 Gross per 24 hour Intake 609 ml Output -- Net 609 ml Laboratory: Results from last 7 days Lab Units 09/13/24 0540 09/12/24 0436 09/11/24 0536 09/10/24 0317 09/10/24 0313 09/09/24 1154 09/08/24 0601 WBC K/mcL 13.06* 14.80* 15.97* -- < > -- 19.96* HGB g/dL 13.6 12.4 12.2 -- < > -- 12.2 HCT % 40.5 38.0 37.3 -- < > -- 37.0 MCV fL 87.7 88.8 89.2 -- < > -- 90.0 PLT K/mcL 482* 435* 446* -- < > -- 393 BUN mg/dL 8 8 10 -- < > -- 11 SODIUM mmol/L 138 140 139 -- < > -- 137 POTASSIUM mmol/L 3.7 3.5 3.5 -- < > -- 3.6 CHLORIDE mmol/L 103 106 106 -- < > -- 104 MAGNESIUM mg/dL -- -- -- -- -- -- 1.8 INR -- -- -- 1.3* -- 1.4* -- < > = values in this interval not displayed. Imaging: Results for orders placed during the hospital encounter of 09/07/24 XR Chest 1 View Narrative EXAMINATION: XR CHEST PA/AP HISTORY: ORDERING SYSTEM PROVIDED HISTORY: Chest tube/empyema, TECHNOLOGIST PROVIDED HISTORY: Illness/Other Reason for exam: Chest tube/empyema Cancer History: u Surgery, RadiationHistory: u Encounter Type: Ongoing Additional signs and symptoms: Chest tube/empyema ORDERING SYSTEM PROVIDED DIAGNOSIS CODES: J18.9 Parapneumonic effusion J91.8 Parapneumonic effusion COMPARISON: Portable chest radiograph dated 09/11/2024. TECHNIQUE: AP upright portable chest radiograph performed. FINDINGS: Stable pleural catheter with the distal tip along the medial aspect of the right lower chest. There is a persistent however smaller, small pneumothorax along the lateral margin of the right lower chest measuring 1.1 cm in transverse dimension. There is persistent patchy and dense consolidation within the right lower chest suggesting atelectasis and/or infiltrate. There is a small amount of pleural fluid along the lateral margin of the right mid chest. There is no pulmonary vascular congestion. There is a small calcified granuloma laterally within the left upper chest. There is no acute osseous abnormality. There is slight scoliosis. There are mild degenerative changes along the spine. There is calcific tendinitis distal aspect of the right supraspinatus tendon. Impression Stable pleural catheter with the distal tip along the medial aspect of the right lower chest. There is a persistent however smaller, small pneumothorax along the lateral margin of the right lower chest measuring 1.1 cm in transverse dimension. There is persistent patchy and dense consolidation within the right lower chest suggesting atelectasis and/or infiltrate. There is a small amount of pleural fluid along the lateral margin of the right mid chest. Workstation ID: [id number] XR Chest 1 View Narrative EXAMINATION: XR CHEST PA/AP 09/11/2024 11:32 am HISTORY: ORDERING SYSTEM PROVIDED HISTORY: Chest tube, TECHNOLOGIST PROVIDED HISTORY: Illness/Other Reason for exam: chest tube f/u Cancer History: u Surgery, RadiationHistory: u Encounter Type: Subsequent/Follow-up Additional signs and symptoms: n ORDERING SYSTEM PROVIDED DIAGNOSIS CODES: J18.9 Parapneumonic effusion J91.8 Parapneumonic effusion COMPARISON: 09/10/2024 FINDINGS: Portable AP upright Impression Chest tube which appears to be in the right lower chest. Stable heart and mediastinum. Slightly improved right basilar opacity. Slightly increased or new mild left basilar opacity. Right lateral pneumothorax is decreased, now with 1.5 cm pleural separation previously 3 cm. Continued fluid at the right costophrenic sulcus. Workstation ID: [id number] XR Chest 1 View Narrative EXAMINATION: PORTABLE CHEST - 09/10/2024 COMPARISON: CT chest without IV contrast and chest radiograph examinations dated 09/09/2024. ADDITIONAL HISTORY: status post chest tube placement FINDINGS: Small-caliber pigtail drain previously seen overlying the inferolateral right chest is no longer seen. Larger-caliber drain overlies the right hemidiaphragm. Persistent inferolateral right hydropneumothorax, measuring 3.0 cm in width, previously measuring 3.0 cm. Dense consolidation and infiltrative changes in the right base again noted, unchanged. Mild dependent atelectasis in the left base again noted, also unchanged. Stable cardiomediastinal contours. Left costophrenic angle remains sharp. No suspicious osseous lesion. Impression 1. New larger-caliber drain overlies the right hemidiaphragm. Persistent moderate-sized inferolateral right hydropneumothorax, not significantly changed. 2. Infiltrative changes/consolidation in the right base again noted, concerning for an area of ongoing pneumonia. 3. Mild dependent atelectasis in the left base, unchanged. No new process identified. [employer]/ads Workstation ID: [id number] XR Chest 1 View Preliminary Result Stable right basilar chest tube position. Improved aeration of the right lung base with probable mild residual atelectasis and pleural effusion. No significant pneumothorax identified. ST/tde Workstation ID: [id number] XR Chest 1 View Final Result Stable pleural catheter with the distal tip along the medial aspect of the right lower chest. There is a persistent however smaller, small pneumothorax along the lateral margin of the right lower chest measuring 1.1 cm in transverse dimension. There is persistent patchy and dense consolidation within the right lower chest suggesting atelectasis and/or infiltrate. There is a small amount of pleural fluid along the lateral margin of the right mid chest. Workstation ID: [id number] XR Chest 1 View Final Result Chest tube which appears to be in the right lower chest. Stable heart and mediastinum. Slightly improved right basilar opacity. Slightly increased or new mild left basilar opacity. Right lateral pneumothorax is decreased, now with 1.5 cm pleural separation previously 3 cm. Continued fluid at the right costophrenic sulcus. Workstation ID: [id number] XR Chest 1 View Final Result 1. New larger-caliber drain overlies the right hemidiaphragm. Persistent moderate-sized inferolateral right hydropneumothorax, not significantly changed. 2. Infiltrative changes/consolidation in the right base again noted, concerning for an area of ongoing pneumonia. 3. Mild dependent atelectasis in the left base, unchanged. No new process identified. [employer] Workstation ID: [id number] VR Chest Tube Right Final Result Image guided right chest tube placement (24 Tunisian Thal quick) PROCEDURE: INTRAVENOUS MODERATE SEDATION AND MONITORING. IMAGE GUIDED PLACEMENT OF RIGHT CHEST TUBE PHYSICIAN: Deanna Valdes D.O. [facility] [address] [place] [id number] (O) [phone] (F) [phone] ANESTHESIA: Intravenous moderate sedation with continuous physiological monitoring was performed utilizing Versed and Fentanyl with personal physician and RN supervision starting at 915 and ending at 935. Continuous noninvasive cardiopulmonary and oxygen saturation monitoring demonstrated stable vital signs throughout the procedure with no evidence of complication. COMPARISON: CT chest 09/09/2024, chest x-ray same day COMPLICATIONS: None. ESTIMATED BLOOD LOSS: Trace. CONTRAST AGENT: NONE RADIATION DOSE: 1.97 mGy FLUOROSCOPY TIME: 0.1 minutes CLINICAL INFORMATION: Loculated right pleural effusion PROCEDURE: The risks, benefits and alternatives were explained to the patient/family/HPOA. Informed consent was obtained. Dose reduction techniques were achieved by using automated exposure control and/or adjustment of mA and/or kV according to patient size and/or use of iterative reconstruction technique. Image guided right chest tube placement Ultrasound showed the complex collection surrounding the right lung posteriorly with locules of air and internal echogenicity. No significant change from the comparison imaging, given technique differences. Skin and subcutaneous tissues were anesthetized at the intended access site. A small skin alexandra was made at this location for needle entry. Then under ultrasound guidance, 18 gauge Chiba was advanced directly into the right pleural effusion was seen to be in good position and light red tinged fluid debris was aspirated. Ultrasound images demonstrate good position of the needle tip. Then under CT guidance, a superstiff Amplatz wire was coiled within the collection and serial dilatation was performed over the wire to advance a 24 Tunisian without quick catheter into the abscess cavity and confirmed to be in appropriate position on post placement fluoroscopic images. Catheter was sutured in place with 0 Prolene pursestring suture, sterile dressings were placed and the catheter was connected to a pleur-evac system. Workstation ID: [id number] CT Chest Without Contrast Final Result 1. There is a decrease [id number] right-sided hydropneumothorax compared to 09/07/2024 but similar to recent x-ray 09/09/2024. Previous small bore right pleural drain has backed out of the pleural space along the right chest wall. 2. Bilateral pulmonary opacities suggesting atelectasis. Superimposed pneumonia is not excluded. 3. Prior granulomatous disease. M[facility]/lab Workstation ID: [id number] XR Chest 1 View Final Result Right iyp-pu-kuwpx chest pigtail catheter in place. Possible underlying catheter retraction compared to 09/08/2024. Tip may be in the extrapleural space. Small right hydropneumothorax. Pleural separation at the lateral aspect of the right mid chest measures up to 9 mm. Results were called by Dr. Eric Rayo to Claude LEMA on 09/09/[address]/hff Workstation ID: [id number] XR Chest 1 View Final Result 1. Status post placement of a right pleural drain. 2. No pneumothorax. PRL/sjk Workstation ID: [id number] Current Medications: cefTRIAXone (ROCEPHIN) IVPB 2,000 mg Intravenous Q24H enoxaparin (LOVENOX) injection 40 mg Subcutaneous Daily lidocaine 1 patch Transdermal Daily metroNIDAZOLE 500 mg Intravenous Q8H nicotine 1 patch Transdermal Daily polyethylene glycol 17 g Oral Daily senna-docusate 1 tablet Oral BID sodium chloride (PF) 5 mL Intravenous Q8H CAROLYNE aluminum-magnesium hydroxide-simethicone, HYDROmorphone, hydrOXYzine, nalOXone AND Notify physician AND naloxone, ondansetron OR ondansetron, oxyCODONE-acetaminophen, Saline lock IV AND sodium chloride (PF) AND sodium chloride (PF) AND sodium chloride 0.9 %, traZODone Care Management Progress Note Date: 2024 Time: 12:39 PM Patient Name: Gricel Patel Date of : 1985 Discharge Plan: Plan A: Home Plan B: Home Health Care Services Discharging Transportation Plan: Discharge Plan Status: Patient to remain in hospital till next week, per conversation with Caro Kruger CNP. CM will continue to follow patient for discharge needs. No needs voiced at this time. Assessment and Background Information: [facility] [place] PROGRESS NOTE Patient Name: Gricel Patel : 1985 Assessment and Plan Gricel Patel is a 38 y.o. female patient of No, Physician with no documented past history status post appendectomy presented with complaints of pain under her right breast wrapping around her back. Sepsis, POA Right lung loculated effusion Right lower lobe pneumonia Severe pleuritic pain Atelectasis Leukocytosis WBC-19.96->15.97->14.80->13.06 CT CAP reviewed-modest rind of nonspecific right pleural fluid, internal complexity noted, seems loculated. Associated atelectasis of right middle and lower lobe. Sputum Cx-p Blood Cx-no growth Body fluid Cx- no growth Etiology unclear but probably dental, she needs couple teeth extracted. Ceftriaxone and Flagyl for anaerobic coverage. No association with healthcare institution, no need for MRSA coverage at this time. S/p oral steroids IV Toradol S/p IV Hydration Pulmonary consult. Discussed with Dr. Schofield. IR consult S/p Chest tube placement 09/08/24, 09/10/24 Pain management CM Lytic therapy started 09/11,09/12, 09/13 Incentive Spirometry Chest x-ray 09/10/24-New larger-caliber drain overlies the right hemidiaphragm. Persistent moderate-sized inferolateral right hydropneumothorax, not significantly changed. Nicotine dependence Smokes a pack per day and vapes. Patient does not want any patch at this time. Smoking cessation Obesity -BMI 34.12 Encourage diet and exercise Discharge Planning Patient Medically Ready for Discharge: no Patient requires continued hospitalization due to: Pain management, IV Antibiotics Expected Date of Discharge: 09/13/24 Expected Discharge Location: Home Quality Measures DVT Prophylaxis: lovenox Samuel Catheter: absent Code Status Full Code Subjective Patient resting in bed, still endorses pain at chest tube site, but feeling better. No reported fever or chills. Objective BP 127/89 Pulse 80 Temp 98.6 F (37 C) (Oral) Resp 16 Ht 5' 5 Wt 93 kg (205 lb 0.4 oz) LMP (LMP Unknown) Comment: preg test done and neg SpO2 94% BMI 34.12 kg/m Physical Examination General Appearance: alert; well appearing; in moderate acute distress HEENT: Head- normocephalic; Eyes- EOMI, sclera anicteric; Throat- mucous membranes moist Cardiovascular: regular rate and rhythm; normal S1, S2; no murmurs, rubs, clicks or gallops; peripheral edema absent Respiratory: lungs clear to auscultation; without wheezes, rales or rhonchi; on room air; pain with palpation to back Abdomen: soft, non-tender, non-distended Neurological: oriented x 3; normal speech; no focal findings or movement disorder noted Musculoskeletal: no significant deformity or tenderness to palpation Skin: normal coloration, Right chest tube intact with suction , no crepitus noted Psych: normal mood and affect Pulmonary-Critical Care Progress Note: Patient Identification Gricel Patel, 1985 Code Status: Full Code Subjective: Seen at bedside Pt brought up getting vape pens from [place] Does not recall severe cough gits, retching, vomiting episodes Objective: Physical Exam: Exam: Gen: nad, a*ox3 CV: rrr, no murmurs Resp: diminished R chest, Chest: R chest tube noted, with serous fluid in tubing - connected to suction Abd: soft, ntnd, +bs MSK: no swelling, no edema, no joint swelling noted Neuro: cn ii-xii grossly intact, strength grossly intact upper/lower/bilateral, follows commands Psych: cooperative, appropriate mood Assessment/Impression: This is a 38 y.o. female with no pmhx. Pulm/Crit is being consulted for R sided empyema, chest tube management. R Pleural Effusion, Moderate - Empyema, m/l Loculated S/p chest tube 09/08, replaced 09/10 Lytic therapy - 09/11, 09/12 Sepsis, 2/2 to above, improved Acute Hypoxic Resp Failure 2/2 to above RLL Pneumonia - CAP, Aspiration (dental?) R Sided Chest Pain / Pleuritic Chest Pain - improved Tobacco Abuse Disorder / Vape Abuse Obesity Class I Plan/Recommendations: - cxr reviewed, mild improvement - no ptx, R chest tube in position - will repeat lytic therapy today - monitor output - continue abx therapy - follow up cultures, cytology - encourage sitting up in chair, incentive spirometry - pain control - acetaminophen prn, lidocaine patch to site of chest tube - repeat cx in the am - m/l repeat CT Chest w/o on 09/14 Code Status: FULL Disposition: repeat lytic therapy today, still with >100cc drainage, repeat cxr in am Critical Care Time: 33 mins This Critical Care Time was spent on evaluating, managing and providing care to this critically ill patient. Includes time spent at bedside, reviewing laboratory and radiology findings, discussing plan of care and concerns with ICU staff and consulting services, and making critical decisions regarding patients' response to treatment. This time was exclusive of any procedures performed separately. Date of Service: 09/12/24 Bryan Johnson MD MPH Critical Care Medicine Pulmonary Medicine Vitals/IOs: Temp: [98.2 F (36.8 C)-99 F (37.2 C)] 99 F (37.2 C) Heart Rate: [81-103] 81 Resp: [16-18] 16 BP: (121-151)/(84-92) 131/84 Temp (24hrs), Av.5 F (36.9 C), Min:98.2 F (36.8 C), Max:99 F (37.2 C) Intake/Output last 3 shifts: I/O last 3 completed shifts: In: 2193.3 [P.O.:240; I.V.:1553.3; IV Piggyback:400] Out: 900 [Chest Tube:900] Fluid Status: Intake/Output Summary (Last 24 hours) at 09/12/2024 1253 Last data filed at 09/12/2024 0602 Gross per 24 hour Intake 310 ml Output 550 ml Net -240 ml Laboratory: Results from last 7 days Lab Units 09/12/24 0436 09/11/24 0536 09/10/24 0317 09/10/24 0313 09/09/24 1154 09/08/24 0601 WBC K/mcL 14.80* 15.97* -- 15.50* -- 19.96* HGB g/dL 12.4 12.2 -- 12.0 -- 12.2 HCT % 38.0 37.3 -- 37.5 -- 37.0 MCV fL 88.8 89.2 -- 90.6 -- 90.0 PLT K/mcL 435* 446* -- 439* -- 393 BUN mg/dL 8 10 -- 14 -- 11 SODIUM mmol/L 140 139 -- 143 -- 137 POTASSIUM mmol/L 3.5 3.5 -- 3.4* -- 3.6 CHLORIDE mmol/L 106 106 -- 110* -- 104 MAGNESIUM mg/dL -- -- -- -- -- 1.8 INR -- -- 1.3* -- 1.4* -- Imaging: Results for orders placed during the hospital encounter of 09/07/24 XR Chest 1 View Narrative EXAMINATION: XR CHEST PA/AP HISTORY: ORDERING SYSTEM PROVIDED HISTORY: Chest tube/empyema, TECHNOLOGIST PROVIDED HISTORY: Illness/Other Reason for exam: Chest tube/empyema Cancer History: u Surgery, RadiationHistory: u Encounter Type: Ongoing Additional signs and symptoms: Chest tube/empyema ORDERING SYSTEM PROVIDED DIAGNOSIS CODES: J18.9 Parapneumonic effusion J91.8 Parapneumonic effusion COMPARISON: Portable chest radiograph dated 09/11/2024. TECHNIQUE: AP upright portable chest radiograph performed. FINDINGS: Stable pleural catheter with the distal tip along the medial aspect of the right lower chest. There is a persistent however smaller, small pneumothorax along the lateral margin of the right lower chest measuring 1.1 cm in transverse dimension. There is persistent patchy and dense consolidation within the right lower chest suggesting atelectasis and/or infiltrate. There is a small amount of pleural fluid along the lateral margin of the right mid chest. There is no pulmonary vascular congestion. There is a small calcified granuloma laterally within the left upper chest. There is no acute osseous abnormality. There is slight scoliosis. There are mild degenerative changes along the spine. There is calcific tendinitis distal aspect of the right supraspinatus tendon. Impression Stable pleural catheter with the distal tip along the medial aspect of the right lower chest. There is a persistent however smaller, small pneumothorax along the lateral margin of the right lower chest measuring 1.1 cm in transverse dimension. There is persistent patchy and dense consolidation within the right lower chest suggesting atelectasis and/or infiltrate. There is a small amount of pleural fluid along the lateral margin of the right mid chest. Workstation ID: [id number] XR Chest 1 View Narrative EXAMINATION: XR CHEST PA/AP 09/11/2024 11:32 am HISTORY: ORDERING SYSTEM PROVIDED HISTORY: Chest tube, TECHNOLOGIST PROVIDED HISTORY: Illness/Other Reason for exam: chest tube f/u Cancer History: u Surgery, RadiationHistory: u Encounter Type: Subsequent/Follow-up Additional signs and symptoms: n ORDERING SYSTEM PROVIDED DIAGNOSIS CODES: J18.9 Parapneumonic effusion J91.8 Parapneumonic effusion COMPARISON: 09/10/2024 FINDINGS: Portable AP upright Impression Chest tube which appears to be in the right lower chest. Stable heart and mediastinum. Slightly improved right basilar opacity. Slightly increased or new mild left basilar opacity. Right lateral pneumothorax is decreased, now with 1.5 cm pleural separation previously 3 cm. Continued fluid at the right costophrenic sulcus. Workstation ID: [id number] XR Chest 1 View Narrative EXAMINATION: PORTABLE CHEST - 09/10/2024 COMPARISON: CT chest without IV contrast and chest radiograph examinations dated 09/09/2024. ADDITIONAL HISTORY: status post chest tube placement FINDINGS: Small-caliber pigtail drain previously seen overlying the inferolateral right chest is no longer seen. Larger-caliber drain overlies the right hemidiaphragm. Persistent inferolateral right hydropneumothorax, measuring 3.0 cm in width, previously measuring 3.0 cm. Dense consolidation and infiltrative changes in the right base again noted, unchanged. Mild dependent atelectasis in the left base again noted, also unchanged. Stable cardiomediastinal contours. Left costophrenic angle remains sharp. No suspicious osseous lesion. Impression 1. New larger-caliber drain overlies the right hemidiaphragm. Persistent moderate-sized inferolateral right hydropneumothorax, not significantly changed. 2. Infiltrative changes/consolidation in the right base again noted, concerning for an area of ongoing pneumonia. 3. Mild dependent atelectasis in the left base, unchanged. No new process identified. [facility]/ads Workstation ID: [id number] XR Chest 1 View Final Result Stable pleural catheter with the distal tip along the medial aspect of the right lower chest. There is a persistent however smaller, small pneumothorax along the lateral margin of the right lower chest measuring 1.1 cm in transverse dimension. There is persistent patchy and dense consolidation within the right lower chest suggesting atelectasis and/or infiltrate. There is a small amount of pleural fluid along the lateral margin of the right mid chest. Workstation ID: [id number] XR Chest 1 View Final Result Chest tube which appears to be in the right lower chest. Stable heart and mediastinum. Slightly improved right basilar opacity. Slightly increased or new mild left basilar opacity. Right lateral pneumothorax is decreased, now with 1.5 cm pleural separation previously 3 cm. Continued fluid at the right costophrenic sulcus. Workstation ID: [id number] XR Chest 1 View Final Result 1. New larger-caliber drain overlies the right hemidiaphragm. Persistent moderate-sized inferolateral right hydropneumothorax, not significantly changed. 2. Infiltrative changes/consolidation in the right base again noted, concerning for an area of ongoing pneumonia. 3. Mild dependent atelectasis in the left base, unchanged. No new process identified. DSS/ads Workstation ID: [id number] VR Chest Tube Right Final Result Image guided right chest tube placement (24 Tunisian Thal quick) PROCEDURE: INTRAVENOUS MODERATE SEDATION AND MONITORING. IMAGE GUIDED PLACEMENT OF RIGHT CHEST TUBE PHYSICIAN: Deanna Valdes D.O. [facility] [address] [place] [address] (O) [phone] (F) [phone] ANESTHESIA: Intravenous moderate sedation with continuous physiological monitoring was performed utilizing Versed and Fentanyl with personal physician and RN supervision starting at 915 and ending at 935. Continuous noninvasive cardiopulmonary and oxygen saturation monitoring demonstrated stable vital signs throughout the procedure with no evidence of complication. COMPARISON: CT chest 09/09/2024, chest x-ray same day COMPLICATIONS: None. ESTIMATED BLOOD LOSS: Trace. CONTRAST AGENT: NONE RADIATION DOSE: 1.97 mGy FLUOROSCOPY TIME: 0.1 minutes CLINICAL INFORMATION: Loculated right pleural effusion PROCEDURE: The risks, benefits and alternatives were explained to the patient/family/HPOA. Informed consent was obtained. Dose reduction techniques were achieved by using automated exposure control and/or adjustment of mA and/or kV according to patient size and/or use of iterative reconstruction technique. Image guided right chest tube placement Ultrasound showed the complex collection surrounding the right lung posteriorly with locules of air and internal echogenicity. No significant change from the comparison imaging, given technique differences. Skin and subcutaneous tissues were anesthetized at the intended access site. A small skin alexandra was made at this location for needle entry. Then under ultrasound guidance, 18 gauge Chiba was advanced directly into the right pleural effusion was seen to be in good position and light red tinged fluid debris was aspirated. Ultrasound images demonstrate good position of the needle tip. Then under CT guidance, a superstiff Amplatz wire was coiled within the collection and serial dilatation was performed over the wire to advance a 24 Tunisian without quick catheter into the abscess cavity and confirmed to be in appropriate position on post placement fluoroscopic images. Catheter was sutured in place with 0 Prolene pursestring suture, sterile dressings were placed and the catheter was connected to a pleur-evac system. Workstation ID: [id number] CT Chest Without Contrast Final Result 1. There is a decrease bzzwf-ci-skfyalhe right-sided hydropneumothorax compared to 09/07/2024 but similar to recent x-ray 09/09/2024. Previous small bore right pleural drain has backed out of the pleural space along the right chest wall. 2. Bilateral pulmonary opacities suggesting atelectasis. Superimposed pneumonia is not excluded. 3. Prior granulomatous disease. MPH/lab Workstation ID: [id number] XR Chest 1 View Final Result Right bqr-ck-pspxl chest pigtail catheter in place. Possible underlying catheter retraction compared to 09/08/2024. Tip may be in the extrapleural space. Small right hydropneumothorax. Pleural separation at the lateral aspect of the right mid chest measures up to 9 mm. Results were called by Dr. Eirc Rayo to Claude LEMA on 09/09/2024 at 0920. /f Workstation ID: [id number] XR Chest 1 View Final Result 1. Status post placement of a right pleural drain. 2. No pneumothorax. PRL/sjk Workstation ID: [id number] Current Medications: alteplase (INTRAPLEURAL) 10 mg/30 mL syringe 10 mg Intrapleural Once cefTRIAXone (ROCEPHIN) IVPB 2,000 mg Intravenous Q24H enoxaparin (LOVENOX) injection 40 mg Subcutaneous Daily lidocaine 1 patch Transdermal Daily metroNIDAZOLE 500 mg Intravenous Q8H nicotine 1 patch Transdermal Daily polyethylene glycol 17 g Oral Daily senna-docusate 1 tablet Oral BID sodium chloride (PF) 5 mL Intravenous Q8H CAROLYNE aluminum-magnesium hydroxide-simethicone, HYDROmorphone, hydrOXYzine, nalOXone AND Notify physician AND naloxone, ondansetron OR ondansetron, ondansetron, oxyCODONE-acetaminophen, Saline lock IV AND sodium chloride (PF) AND sodium chloride (PF) AND sodium chloride 0.9 %, traZODone Care Management Progress Note Date: 09/12/2024 Time: 12:08 PM Patient Name: Gricel Patel Date of : 1985 Discharge Plan: Plan A: Home Plan B: Home Health Care Services Discharging Transportation Plan: Discharge Plan Status: Patient is not medically ready for discharge today per conversation with Caro Kruger CNP. Patient updated with email address for Roz Herring RN for assistance with her FMLA. Patient thankful for information and states she will have the information emailed. CM will continue to follow patient for discharge needs. Assessment and Background Information: [facility] PROGRESS NOTE Patient Name: Gricel Patel : 1985 Assessment and Plan Gricel Patel is a 38 y.o. 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 Sepsis, POA Right lung loculated effusion Right lower lobe pneumonia Severe pleuritic pain Atelectasis Leukocytosis WBC-19.96->15.97->14.80 CT CAP reviewed-modest rind of nonspecific right pleural fluid, internal complexity noted, seems loculated. Associated atelectasis of right middle and lower lobe. Sputum Cx-p Blood Cx-no growth Body fluid Cx- no growth Etiology unclear but probably dental, she needs couple teeth extracted. Ceftriaxone and Flagyl for anaerobic coverage. No association with healthcare institution, no need for MRSA coverage at this time. S/p oral steroids IV Toradol S/p IV Hydration Pulmonary consult. Discussed with Dr. Schofield. IR consult S/p Chest tube placement 09/08/24, 09/10/24 Pain management CM Lytic therapy started 09/11/24, Incentive Spirometry Chest x-ray 09/10/24-New larger-caliber drain overlies the right hemidiaphragm. Persistent moderate-sized inferolateral right hydropneumothorax, not significantly changed. Nicotine dependence Smokes a pack per day and vapes. Patient does not want any patch at this time. Smoking cessation Obesity -BMI 34.12 Encourage diet and exercise Discharge Planning Patient Medically Ready for Discharge: no Patient requires continued hospitalization due to: Pain management, IV Antibiotics Expected Date of Discharge: 09/13/24 Expected Discharge Location: Home Quality Measures DVT Prophylaxis: lovenox Samuel Catheter: absent Code Status Full Code Subjective Patient resting in bed, pain better controlled today, does endorse some right neck pain , no fever or chills Objective BP 121/84 Pulse 83 Temp 98.4 F (36.9 C) (Oral) Resp 16 Ht 5' 5 Wt 93 kg (205 lb 0.4 oz) LMP (LMP Unknown) Comment: preg test done and neg SpO2 92% BMI 34.12 kg/m Physical Examination General Appearance: alert; well appearing; in moderate acute distress HEENT: Head- normocephalic; Eyes- EOMI, sclera anicteric; Throat- mucous membranes moist Cardiovascular: regular rate and rhythm; normal S1, S2; no murmurs, rubs, clicks or gallops; peripheral edema absent Respiratory: lungs clear to auscultation; without wheezes, rales or rhonchi; on room air; pain with palpation to back Abdomen: soft, non-tender, non-distended Neurological: oriented x 3; normal speech; no focal findings or movement disorder noted Musculoskeletal: no significant deformity or tenderness to palpation Skin: normal coloration, Right chest tube intact with suction , no crepitus noted Psych: normal mood and affect RT Therapeutics Bundle Lung Expansion Indications: Pulmonary atelectasis (suspected/documented) Levels: Level 1 Criteria : Stable respiratory status with Inspiratory Capacity (IC) greater than or equal to 30% Predicted Management : Therapeutic Treatment: Inspiratory Capacity greater than or equal to 30% and less than Interventions: Supervised Incentive Spirometry twice a day (BID) and every 2 hours PRN for hypoxia. Airway Clearance Indications: Not applicable Levels: Not applicable Lala Lynch RRT 09/12/24 0805 Incentive Spirometry IS Predicted Volume (mL) 2750 mL Incentive Spirometry Achieved (mL) 1250 mL Percent Predicted 45 % Number of breaths per set 5 Number of Sets 1 PULMONOLOGY PROGRESS 09/11/2024 Patient: Gricel Patel Date of : 1985 Site: [facility] Provider: Celia Bennett CNP ASSESSMENT/PLAN: Gricel Patel 38 y.o. female with history of no active medical problems presented to the hospital with chest pain radiating to her back for the past 1-2 weeks. This was associated with difficulty breathing over the past few days which is why she presented to the hospital. Denies having obvious fever or chills but has been having feeling of hot and cold. Initial CT imaging indicated a right sided, loculated pleural effusion consistent with empyema. On 09/08/24 a right sided chest tube was placed with immediate return of purulent fluid. Right sided empyema. Sp chest tube placement on 09/08 with an immediate 800ml/24 hours drained. Repeat CXR with basilar/lateral pneumothorax possibly secondary to entrapped lung. Pleural fluid studies consistent with exudative. Aerobic pleural fluid culture NTD. MRSA negative. Chest tube noted to be dislodged on 09/09 and removed. Replaced by IR on 09/10 with 350ml/24 hours drained. Start Intrapleural lytic therapy today (09/11). Serial CXRs. Please consistently randy chest tube output on Pleur-evac and document in output. No new Assessment & Plan notes have been filed under this hospital service since the last note was generated. Service: Pulmonology SUBJECTIVE: History Since Last Visit: no acute overnight changes. Pending Lab and Radiology Results Order Current Status Body Fluid Aerobic Culture Preliminary result Interpretation of Testing: I personally reviewed the Chest X-ray and agree with the interpretation(s). Review of Systems: All other systems reviewed and negative other than HPI OBJECTIVE: Physical Examination: BP (!) 145/93 Pulse 93 Temp 97.4 F (36.3 C) (Oral) Resp 16 Ht 5' 5 Wt 93 kg (205 lb 0.4 oz) LMP (LMP Unknown) Comment: preg test done and neg SpO2 91% BMI 34.12 kg/m Temp: [97.4 F (36.3 C)-98.7 F (37.1 C)] 97.4 F (36.3 C) Heart Rate: [78-93] 93 Resp: [16-18] 16 BP: (117-149)/(76-96) 145/93 SpO2 Readings from Last 1 Encounters: 09/11/24 91% Intake/Output Summary (Last 24 hours) at 09/11/2024 1344 Last data filed at 09/11/2024 1305 Gross per 24 hour Intake 1923.32 ml Output 350 ml Net 1573.32 ml Vital Signs Reviewed. Gen: Alert and oriented x 3, In no apparent distress HEENT: Head: Normocephalic, no lesions, without obvious abnormality. Pharynx: Dental Hygiene adequate. Normal buccal mucosa. Normal pharynx. Neck: nontender, full range of motion, no mass, no focal lymphadenopathy Cardio: regular rate and rhythm, no murmur, brisk capillary refill Resp: clear to auscultation bilaterally, no wheezes or crackles, no tachypnea or accessory muscle use Abd: soft, nontender, nondistended, no hepatosplenomegaly, no mass, normal bowel sounds MSK: Moves all four extremities spontaneously. Neuro: Grossly normal without focal findings Skin: no rashes, no jaundice Laboratory and Additional Data Reviewed: [x] Medications reviewed. [x] Labs reviewed. Pertinent findings noted: WBC 15 [x] Radiology reviewed. Pertinent findings noted: CXR [] Pathology reviewed. Pertinent findings noted: Family Update/ Code Status: Full code Reviewed 09/11/24 1:44 PM: Laboratory, Microbiology, Radiology, Cardiology, and Medications Cosigned by Bryan Johnson MD at 09/11/2024 5:52 PM EDT Associated attestation - Bryan Johnson MD - 09/11/2024 5:52 PM EDT I have independently seen and examined the patient. I have reviewed the pertinent lab and diagnostic data (both new and old if applicable). I agree with the ARPITA history, physical exam, and assessment and plan, with any modifications noted below. If present, please see my separate consult, progress note, or addendum for additional details. Subjective: Seen at bedside, reviewed cxr at bedside for 09/11 Breathing better compared to presentation Pain present, but improved compared to the sharp stabbing pain Still requiring heated high flow Objective Vitals: I have reviewed vitals from over the past 24 hours. I/Os: I have reviewed I/Os from over the past 24 hours. Exam: Gen: nad, a*ox3 CV: rrr, no murmurs Resp: diminished R chest, Chest: R chest tube noted, with serous fluid in tubing - connected to suction Abd: soft, ntnd, +bs MSK: no swelling, no edema, no joint swelling noted Neuro: cn ii-xii grossly intact, strength grossly intact upper/lower/bilateral, follows commands Psych: cooperative, appropriate mood Labs: I have reviewed labs from over the past 24 hours. Imaging: I have reviewed imaging from over the past 24 hours. Assessment/Impression: This is a 38 y.o. female with no pmhx. Pulm/Crit is being consulted for R-sided Empyema. R Pleural Effusion, Moderate - Empyema, m/l Loculated S/p chest tube 09/08, replaced 09/10 Lytic therapy started 09/11 Sepsis, 2/2 to above, improved Acute Hypoxic Resp Failure 2/2 to above RLL Pneumonia - CAP, Aspiration (dental?) R Sided Chest Pain / Pleuritic Chest Pain - improved Tobacco Abuse Disorder / Vape Abuse Obesity Class I Plan/Recommendations: - cxr reviewed at bedside, minimal improvement noted of effusion - plan for lytic therapy - first dose today - continue to follow for culture results - agree with abx - ceftriaxone / flagyl - follow cultures - pain control - lidocaine patch, acetaminophen, oxycodone prn - encourage incentive spirometry Disposition: - lytic therapy, repeat cxr - will assess for repeat therapy tomorrow Critical Care Time: 40 mins This Critical Care Time was spent on evaluating, managing and providing care to this critically ill patient. Includes time spent at bedside, reviewing laboratory and radiology findings, discussing plan of care and concerns with ICU staff and consulting services, and making critical decisions regarding patients' response to treatment. This time was exclusive of any procedures performed separately. Date of Service: 09/11/2024 Bryan Johnson MD MPH Critical Care Medicine Pulmonary Medicine Care Management Progress Note Date: 09/11/2024 Time: 1:12 PM Patient Name: Gricel Patel Date of : 1985 Discharge Plan: Plan A: Home Plan B: Home Health Care Services Discharging Transportation Plan: Discharge Plan Status: No plans to discharge today per conversation with Caro Kruger CNP. Secure chat sent to Alisson Fajardo RN and Roz Herring RN here at hospital per recommendation of Celia Bennett CNP, to assist patient with FMLA paper work. Awaiting communication from them. Assessment and Background Information: [facility] PROGRESS NOTE Patient Name: Gricel Patel : 1985 Assessment and Plan Gricel Patel is a 38 y.o. 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 Sepsis, POA Right lung loculated effusion Right lower lobe pneumonia Severe pleuritic pain Atelectasis Leukocytosis WBC-19.96->15.97 CT CAP reviewed-modest rind of nonspecific right pleural fluid, internal complexity noted, seems loculated. Associated atelectasis of right middle and lower lobe. Sputum Cx-p Blood Cx-no growth Body fluid Cx- no growth Etiology unclear but probably dental, she needs couple teeth extracted. Ceftriaxone and Flagyl for anaerobic coverage. No association with healthcare institution, no need for MRSA coverage at this time. S/p oral steroids IV Toradol S/p IV Hydration Pulmonary consult. Discussed with Dr. Schofield. IR consult S/p Chest tube placement 09/08/24, 09/10/24 Pain management CM Incentive Spirometry Chest x-ray 09/10/24-New larger-caliber drain overlies the right hemidiaphragm. Persistent moderate-sized inferolateral right hydropneumothorax, not significantly changed. Nicotine dependence Smokes a pack per day and vapes. Patient does not want any patch at this time. Smoking cessation Obesity -BMI 34.12 Encourage diet and exercise Discharge Planning Patient Medically Ready for Discharge: no Patient requires continued hospitalization due to: Pain management, IV Antibiotics Expected Date of Discharge: 09/13/24 Expected Discharge Location: Home Quality Measures DVT Prophylaxis: lovenox Samuel Catheter: absent Code Status Full Code Subjective Patient resting in bed, pain better controlled today, does endorse some right neck pain , no fever or chills Objective BP (!) 145/93 Pulse 93 Temp 97.4 F (36.3 C) (Oral) Resp 16 Ht 5' 5 Wt 93 kg (205 lb 0.4 oz) LMP (LMP Unknown) Comment: preg test done and neg SpO2 91% BMI 34.12 kg/m Physical Examination General Appearance: alert; well appearing; in moderate acute distress HEENT: Head- normocephalic; Eyes- EOMI, sclera anicteric; Throat- mucous membranes moist Cardiovascular: regular rate and rhythm; normal S1, S2; no murmurs, rubs, clicks or gallops; peripheral edema absent Respiratory: lungs clear to auscultation; without wheezes, rales or rhonchi; on room air; pain with palpation to back Abdomen: soft, non-tender, non-distended Neurological: oriented x 3; normal speech; no focal findings or movement disorder noted Musculoskeletal: no significant deformity or tenderness to palpation Skin: normal coloration, Right chest tube intact with suction Psych: normal mood and affect Care Management Progress Note Date: 09/10/2024 Time: 2:15 PM Patient Name: Gricel Patel Date of : 1985 Discharge Plan: Plan A: Home Plan B: Home Health Care Services Discharging Transportation Plan: Discharge Plan Status: Spoke with patient's mother about PCP choices, patient resting quietly at this time. Mother provides the name Melvi Swanson with the [facility]. Prudence Tate, PETRA to place call to clinic to obtain an appointment with them at discharge. Assessment and Background Information: PULMONOLOGY PROGRESS 09/10/2024 Patient: Gricel Patel Date of : 1985 Site: [facility] Provider: Claude Cosby CNP ASSESSMENT/PLAN: Gricel Patel 38 y.o. female with history of no active medical problems presented to the hospital with chest pain radiating to her back for the past 1-2 weeks. This was associated with difficulty breathing over the past few days which is why she presented to the hospital. Denies having obvious fever or chills but has been having feeling of hot and cold. Initial CT imaging indicated a right sided, loculated pleural effusion consistent with empyema. On 09/08/24 a right sided chest tube was placed with immediate return of pus like fluid. Right sided pleural effusion. CT imaging indicated a large, loculated right sided pleural effusion with rind. S/p chest tube placement 09/08/24. Body fluid exudative per light's criteria. MRSA-, Body fluid aerobic with many WBC/RBC. Chest tube replaced by IR 09/10/24 Will plan on Intrapleural lytic therapy 09/11/24 Continue antibiotics. Patient will need extended antibiotic therapy with follow up imaging to determine pleural effusion resolution. PRN bronchodilators. Pain control. No new Assessment & Plan notes have been filed under this hospital service since the last note was generated. Service: Pulmonology SUBJECTIVE: History Since Last Visit: S/p IR chest tube placement. Patient with complaint of localized pain, otherwise without complaint. Pending Lab and Radiology Results Order Current Status VR Chest Tube Right In process XR Chest 1 View In process Body Fluid Aerobic Culture Preliminary result Interpretation of Testing: I personally reviewed the No new imaging and agree with the interpretation(s). Review of Systems: Eyes:No diplopia ENT:No sinus drainage CV:No chest pain. No ankle swelling GI:No abdominal pain.No abdominal distention :No dysuria Neuro:No headache Integumentary:No skin rash All other systems reviewed and negative other than HPI OBJECTIVE: Physical Examination: BP 128/84 Pulse 86 Temp 97.3 F (36.3 C) (Oral) Resp (!) 20 Ht 5' 5 Wt 93 kg (205 lb 0.4 oz) LMP (LMP Unknown) Comment: preg test done and neg SpO2 95% BMI 34.12 kg/m Temp: [97.3 F (36.3 C)-98.1 F (36.7 C)] 97.3 F (36.3 C) Heart Rate: [68-92] 86 Resp: [13-24] 20 BP: (111-170)/(73-102) 128/84 SpO2 Readings from Last 1 Encounters: 09/10/24 95% Intake/Output Summary (Last 24 hours) at 09/10/2024 1238 Last data filed at 09/10/2024 0436 Gross per 24 hour Intake 665 ml Output -- Net 665 ml Vital Signs Reviewed. Gen: Alert and oriented x 3, In no apparent distress HEENT: Head: Normocephalic, no lesions, without obvious abnormality. Pharynx: Dental Hygiene adequate. Normal buccal mucosa. Normal pharynx. Neck: nontender, full range of motion, no mass, no focal lymphadenopathy Cardio: regular rate and rhythm, no murmur, brisk capillary refill Resp: clear to auscultation bilaterally, no wheezes or crackles, no tachypnea or accessory muscle use Abd: soft, nontender, nondistended, no hepatosplenomegaly, no mass, normal bowel sounds MSK: Moves all four extremities spontaneously. Neuro: Grossly normal without focal findings Skin: no rashes, no jaundice Laboratory and Additional Data Reviewed: [x] Medications reviewed. [x] Labs reviewed. Pertinent findings noted: Body fluid micro [] Radiology reviewed. Pertinent findings noted: [] Pathology reviewed. Pertinent findings noted: Family Update/ Code Status: Full Reviewed 09/10/24 12:38 PM: Laboratory, Microbiology, Radiology, Medications, and Transcriptions Cosigned by Chandu Mathew MD at 09/10/2024 12:57 PM EDT Associated attestation - Chandu Mathew MD - 09/10/2024 12:57 PM EDT I have independently seen and examined the patient. I have reviewed the pertinent lab and diagnostic data (both new and old if applicable). I agree with the ARPITA history, physical exam, and assessment and plan, with any modifications noted below. If present, please see my separate consult or progress note for additional details. 38-year-old with right sided empyema s/p chest tube placement on 09/08 with immediate drainage of pus from her right pleural space. LDH and glucose values consistent with empyema, cultures remained negative. Patient had drainage of around 800 cc from the chest tube in the first 24 hours of placement before it stopped draining. CT chest confirmed the chest tube to have dislodged out of the pleural space on 09/09. Consulted IR and chest tube replaced today. Continue chest tube to -20 suction. Depending on the output from the chest tube, she will likely need instillation of tpA/dornase through the chest tube over the next few days to clear up the empyema. Chest x-ray reviewed this morning which shows basilar pneumothorax in the location of the empyema. This is pneumothorax ex vacuo and is indicative of an entrapped lung. The hope is that with the drainage of the empyema, the lung will still have the capacity to be able to expand. [facility] PROGRESS NOTE Patient Name: Gricel Patel : 1985 Assessment and Plan Gricel Patel is a 38 y.o. 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 Sepsis, POA Right lung loculated effusion Right lower lobe pneumonia Severe pleuritic pain Atelectasis Leukocytosis WBC-19.96 CT CAP reviewed-modest rind of nonspecific right pleural fluid, internal complexity noted, seems loculated. Associated atelectasis of right middle and lower lobe. Sputum Cx-p Blood Cx-p Body fluid Cx- no growth Etiology unclear but probably dental, she needs couple teeth extracted. Ceftriaxone and Flagyl for anaerobic coverage. No association with healthcare institution, no need for MRSA coverage at this time. IV Toradol and steroids for pleuritic pain. S/p IV Hydration Pulmonary consult. Discussed with Dr. Schofield. IR consult S/p Chest tube placement 09/08/24, 09/10/24 Pain management CM Incentive Spirometry Nicotine dependence Smokes a pack per day and vapes. Patient does not want any patch at this time. Smoking cessation Obesity -BMI 34.12 Encourage diet and exercise Discharge Planning Patient Medically Ready for Discharge: no Patient requires continued hospitalization due to: Pain management, IV Antibiotics Expected Date of Discharge: 09/13/24 Expected Discharge Location: Home Quality Measures DVT Prophylaxis: lovenox Samuel Catheter: absent Code Status Full Code Subjective Patient resting in bed,just returned from IR after having chest tube replaced, pain tolerable. Objective BP 128/84 Pulse 86 Temp 97.3 F (36.3 C) (Oral) Resp (!) 20 Ht 5' 5 Wt 93 kg (205 lb 0.4 oz) LMP (LMP Unknown) Comment: preg test done and neg SpO2 95% BMI 34.12 kg/m Physical Examination General Appearance: alert; well appearing; in moderate acute distress HEENT: Head- normocephalic; Eyes- EOMI, sclera anicteric; Throat- mucous membranes moist Cardiovascular: regular rate and rhythm; normal S1, S2; no murmurs, rubs, clicks or gallops; peripheral edema absent Respiratory: lungs clear to auscultation; without wheezes, rales or rhonchi; on room air; pain with palpation to back Abdomen: soft, non-tender, non-distended Neurological: oriented x 3; normal speech; no focal findings or movement disorder noted Musculoskeletal: no significant deformity or tenderness to palpation Skin: normal coloration, chest tube intact to right side Psych: normal mood and affect [facility] [place] PROGRESS NOTE Patient Name: Gricel Patel : 1985 Assessment and Plan Gricel Patel is a 38 y.o. female patient of No, Physician with no documented past history status post appendectomy presented with complaints of pain under her right breast wrapping around her back. Sepsis, POA Right lung loculated effusion Right lower lobe pneumonia Severe pleuritic pain Atelectasis Leukocytosis WBC-19.96 CT CAP reviewed-modest rind of nonspecific right pleural fluid, internal complexity noted, seems loculated. Associated atelectasis of right middle and lower lobe. Sputum Cx-p Blood Cx-p Body fluid Cx- no growth Etiology unclear but probably dental, she needs couple teeth extracted. Ceftriaxone and Flagyl for anaerobic coverage. No association with healthcare institution, no need for MRSA coverage at this time. IV Toradol and steroids for pleuritic pain. Continue IV Hydration Pulmonary consult. Discussed with Dr. Schofield. IR consult S/p Chest tube placement 09/08/24 Pain management CM Incentive Spirometry Nicotine dependence Smokes a pack per day and vapes. Patient does not want any patch at this time. Smoking cessation Obesity -BMI 34.12 Encourage diet and exercise Resolved acute medical issues Discharge Planning Patient Medically Ready for Discharge: no Patient requires continued hospitalization due to: Pain management, IV Antibiotics Expected Date of Discharge: 09/13/24 Expected Discharge Location: Home Quality Measures DVT Prophylaxis: lovenox Samuel Catheter: absent Code Status Full Code Subjective Patient resting in bed, endorses 10/10 right side pain at chest tube insertion site, patient very anxious, states pain medicine is not working well, denies any shortness of breath, fever, or chills Objective BP 127/85 Pulse 81 Temp 98 F (36.7 C) (Oral) Resp 16 Ht 5' 5 Wt 93 kg (205 lb 0.4 oz) LMP (LMP Unknown) Comment: preg test done and neg SpO2 98% BMI 34.12 kg/m Physical Examination General Appearance: alert; well appearing; in moderate acute distress HEENT: Head- normocephalic; Eyes- EOMI, sclera anicteric; Throat- mucous membranes moist Cardiovascular: regular rate and rhythm; normal S1, S2; no murmurs, rubs, clicks or gallops; peripheral edema absent Respiratory: lungs clear to auscultation; without wheezes, rales or rhonchi; on room air; pain with palpation to back Abdomen: soft, non-tender, non-distended Neurological: oriented x 3; normal speech; no focal findings or movement disorder noted Musculoskeletal: no significant deformity or tenderness to palpation Skin: normal coloration, chest tube intact to right side Psych: normal mood and affect PULMONOLOGY PROGRESS 09/09/2024 Patient: Gricel Patel Date of : 1985 Site: [facility] Provider: Claude Cosby CNP ASSESSMENT/PLAN: Gricel Patel 38 y.o. female with history of no active medical problems presented to the hospital with chest pain radiating to her back for the past 1-2 weeks. This was associated with difficulty breathing over the past few days which is why she presented to the hospital. Denies having obvious fever or chills but has been having feeling of hot and cold. Initial CT imaging indicated a right sided, loculated pleural effusion consistent with empyema. On 09/08/24 a right sided chest tube was placed with immediate return of pus like fluid. Right sided pleural effusion. CT personally reviewed with large, loculated right sided pleural effusion with rind. S/p chest tube placement 09/08/24. Body fluid exudative per light's criteria. MRSA-, Body fluid aerobic with many WBC/RBC. Chest tube output 800ml. Repeat CXR with possible tube migration, although side port appears to remain in proper positioning and with small PTX ex vacuo. Will follow up with CT chest for evaluation prior to intrapleural lytic therapy. Continue antibiotics. Patient will need extended antibiotic therapy with follow up imaging to determine pleural effusion resolution. PRN bronchodilators. Pain control. No new Assessment & Plan notes have been filed under this hospital service since the last note was generated. Service: Critical Care SUBJECTIVE: History Since Last Visit: S/p chest tube placement. Patient with complaint of localized pain, otherwise without complaint. Pending Lab and Radiology Results Order Current Status Nongyn Cytology Collected (09/08/24 1253) XR Chest 1 View In process Body Fluid Aerobic Culture Preliminary result Interpretation of Testing: I personally reviewed the Chest X-ray and agree with the interpretation(s). Review of Systems: Eyes:No diplopia ENT:No sinus drainage CV:No chest pain. No ankle swelling GI:No abdominal pain.No abdominal distention :No dysuria Neuro:No headache Integumentary:No skin rash All other systems reviewed and negative other than HPI OBJECTIVE: Physical Examination: BP 127/85 Pulse 81 Temp 98 F (36.7 C) (Oral) Resp 16 Ht 5' 5 Wt 93 kg (205 lb 0.4 oz) LMP (LMP Unknown) Comment: preg test done and neg SpO2 93% BMI 34.12 kg/m Temp: [98 F (36.7 C)-98.3 F (36.8 C)] 98 F (36.7 C) Heart Rate: [79-99] 81 Resp: [16] 16 BP: (118-147)/(80-90) 127/85 SpO2 Readings from Last 1 Encounters: 09/09/24 93% Intake/Output Summary (Last 24 hours) at 09/09/2024 0812 Last data filed at 09/09/2024 0540 Gross per 24 hour Intake 1538 ml Output 800 ml Net 738 ml Vital Signs Reviewed. Gen: Alert and oriented x 3, In no apparent distress HEENT: Head: Normocephalic, no lesions, without obvious abnormality. Pharynx: Dental Hygiene adequate. Normal buccal mucosa. Normal pharynx. Neck: nontender, full range of motion, no mass, no focal lymphadenopathy Cardio: regular rate and rhythm, no murmur, brisk capillary refill Resp: clear to auscultation bilaterally, no wheezes or crackles, no tachypnea or accessory muscle use Abd: soft, nontender, nondistended, no hepatosplenomegaly, no mass, normal bowel sounds MSK: Moves all four extremities spontaneously. Neuro: Grossly normal without focal findings Skin: no rashes, no jaundice Laboratory and Additional Data Reviewed: [x] Medications reviewed. [x] Labs reviewed. Pertinent findings noted: Body fluid micro [x] Radiology reviewed. Pertinent findings noted: CXR [] Pathology reviewed. Pertinent findings noted: Family Update/ Code Status: Full Reviewed 09/09/24 8:12 AM: Laboratory, Microbiology, Radiology, Medications, and Transcriptions Cosigned by Chandu Mathew MD at 09/09/2024 11:16 AM EDT Associated attestation - Chandu Mathew MD - 09/09/2024 11:16 AM EDT I have independently seen and examined the patient. I have reviewed the pertinent lab and diagnostic data (both new and old if applicable). I agree with the ARPITA history, physical exam, and assessment and plan, with any modifications noted below. If present, please see my separate consult or progress note for additional details. 38-year-old with right sided empyema s/p chest tube placement on 09/08 with immediate drainage of pus from her right pleural space. LDH and glucose values consistent with empyema, cultures are still pending. Patient had drainage of around 800 cc from the chest tube since it was placed. Chest x-ray reviewed this morning which shows basilar pneumothorax in the location of the empyema. This is pneumothorax ex vacuo and is indicative of an entrapped lung. The hope is that with the drainage of the empyema, the lung will still have the capacity to be able to expand. We will have to continue monitoring it with repeat chest x-ray. Today's chest x-ray shows the chest tube to be very close to the chest wall and potentially out of the pleural cavity. It still continues to drain so I do not believe all the ports are out of the pleural space. Before we can plan for tPA/dornase instillation, I will obtain a CT chest to ensure that the chest tube is in the correct position. Continue chest tube to -20 suction for now. Obt[address] chest and we will decide about giving tPA/dornase accordingly. Update 11.15AM: CT chest reviewed with the chest tube just outside the pleural space. Pull out the chest tube Will consult IR for replacement chest tube [facility] PROGRESS NOTE Patient Name: Gricel Patel : 1985 Assessment and Plan Gricel Patel is a 38 y.o. 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 Sepsis, POA [tachycardia and leukocytosis] Right lung loculated effusion Right lower lobe pneumonia Severe pleuritic pain Atelectasis CT CAP reviewed-modest rind of nonspecific right pleural fluid, internal complexity noted, seems loculated. Associated atelectasis of right middle and lower lobe. Obtain sputum and blood cultures. Etiology unclear but probably dental, she needs couple teeth extracted. Ceftriaxone and Flagyl for anaerobic coverage. No association with healthcare institution, no need for MRSA coverage at this time. IV Toradol and steroids for pleuritic pain. Received 1 L bolus at freestanding ER, will give another liter and start on MIF. Pulmonary consult. Discussed with Dr. Schofield. IR consult to evaluate for thoracentesis versus chest tube. Definitive treatment will depend on drainage. Nicotine dependence Smokes a pack per day and vapes. Patient does not want any patch at this time. Resolved acute medical issues Discharge Planning Patient Medically Ready for Discharge: no Patient requires continued hospitalization due to: Awaiting IR intervention Expected Date of Discharge: TBD Expected Discharge Location: Home Quality Measures DVT Prophylaxis: lovenox Samuel Catheter: absent Code Status Full Code Primary Contact Information Mother and father at bedside Subjective Patient expressed she has not had good pain control yet since coming to the ED. She has not needed supplementary oxygen. She is decreased appetite since the discomfort in the lung started but is drinking fluids. She denies having a BM in a few days. Objective BP 136/85 Pulse 88 Temp 98.1 F (36.7 C) (Oral) Resp (!) 20 Ht 5' 5 Wt 93 kg (205 lb 0.4 oz) LMP (LMP Unknown) Comment: preg test done and neg SpO2 92% BMI 34.12 kg/m Physical Examination General Appearance: alert; well appearing; in moderate acute distress HEENT: Head- normocephalic; Eyes- EOMI, sclera anicteric; Throat- mucous membranes moist Cardiovascular: regular rate and rhythm; normal S1, S2; no murmurs, rubs, clicks or gallops; peripheral edema absent Respiratory: lungs clear to auscultation; without wheezes, rales or rhonchi; on room air; pain with palpation to back Abdomen: soft, non-tender, non-distended Neurological: oriented x 3; normal speech; no focal findings or movement disorder noted Musculoskeletal: no significant deformity or tenderness to palpation Skin: normal coloration Psych: normal mood and affect documented in this encounter [facility] 09-16-2024 Note HMS DISCHARGE SUMMAR Y -- [facility] Gricel Patel : 1985 Admitted: 09/07/2024 Discharge Date: 09/16/24 PCP Handoff Recommended Outpatient Testing Follow up appointment with pulmonology Follow up appointment with infectious disease Follow up appointment with dentist Results Pending At Discharge Mandibular x-ray Clinical Summary Gricel Patel is a 39 y.o. 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 Sepsis, POA, resolved Right lung loculated effusion Right lower lobe pneumonia Possibly secondary to dental infection. Dental health and the need to see a dentist discussed with the patient CT CAP reviewed-modest rind of nonspecific right pleural fluid, internal complexity noted, seems loculated. Associated atelectasis of right middle and lower lobe. Pleural fluid studies consistent with exudative/empyema. Cytology negative. Blood, sputum, and aerobic/anaerobic pleural fluid cultures NTD. Completed course of oral steroids. Discontinue Ceftriaxone and Flagyl (started on 09/07). Chest tube placement on 09/08 - dislodged, replaced on 09/10 per IR. Intrapleural lytic therapy 09/11 - 09/[address] chest on 09/14 with significant improvement in right sided loculated effusion. Moderate amount of residual pleural fluid with loculated components. Continue good pulmonary hygiene: OOB, cough and deep breathe, IS. Mandibular XR (09/16): pending CXR (09/16): chest tube removed, no pneumothorax, right lower lung discoid atelectasis, minimal consolidation, and small pleural effusion Pulmonary removed chest tube without problems, and has set a follow up appointment Dr Carmen wants augmentin for 3 weeks, then follow up with him. Start Augmentin PO Start Flexeril PO Start Guaifenesin PO Start Percocet PO Nicotine dependence Smokes a pack per day and vapes. Smoking cessation discussed with patient. She is planning to stop. Obesity -BMI 34.12 Encourage diet and exercise Discharge Medications Discharge Medications New Medications Details amoxicillin-clavulanate 875-125 mg per tablet Commonly known as: AUGMENTIN Take 1 (one) tablet by mouth 2 (two) times a day for 21 days . Quantity: 42 tablet cyclobenzaprine 5 MG tablet Commonly known as: FLEXERIL Take 1 (one) tablet (5 mg total) by mouth 3 (three) times a day as needed for muscle spasms . Quantity: 30 tablet guaiFENesin 600 mg 12 hr tablet Commonly known as: MUCINEX Take 1 (one) tablet (600 mg total) by mouth every 12 (twelve) hours . Quantity: 60 tablet oxyCODONE-acetaminophen 5-325 mg per tablet Commonly known as: PERCOCET Take 1 (one) tablet by mouth every 6 (six) hours as needed (Days supply per fill: 5) . Quantity: 15 tablet Physician(s) Follow Up: Chandu Mathew MD [address] [facility] [id number] Follow up on 12/06/[address] Mathew on 12/06/2024 at 9am. Russ Carmen MD [address] [facility] [id number] Follow up in 3 week(s) Call the office to make an appointment Condition at Discharge: Stable Disposition: Home I reviewed discharge recommendations with the patient in person. Patient instructions, including activity, were given to the patient/family at discharge. On day of discharge I saw Gricel Patel and spent: > 30 minutes on discharge. Completed by: Monse Gonsales CNP on 09/16/24, 4:34 PM AUTHENTICATED BY MONSE GONSALES, ON 09/16/2024 16:34:15 [facility] 09-16-2024 Hospital course Narrative [facility] DISCHARGE SUMMARY -- [facility] Gricel Patel : 1985 Admitted: 09/07/2024 Discharge Date: 09/16/24 PCP Handoff Recommended Outpatient Testing Follow up appointment with pulmonology Follow up appointment with infectious disease Follow up appointment with dentist Results Pending At Discharge Mandibular x-ray Clinical Summary Gricel Patel is a 39 y.o. 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 Sepsis, POA, resolved Right lung loculated effusion Right lower lobe pneumonia Possibly secondary to dental infection. Dental health and the need to see a dentist discussed with the patient CT CAP reviewed-modest rind of nonspecific right pleural fluid, internal complexity noted, seems loculated. Associated atelectasis of right middle and lower lobe. Pleural fluid studies consistent with exudative/empyema. Cytology negative. Blood, sputum, and aerobic/anaerobic pleural fluid cultures NTD. Completed course of oral steroids. Discontinue Ceftriaxone and Flagyl (started on 09/07). Chest tube placement on 09/08 - dislodged, replaced on 09/10 per IR. Intrapleural lytic therapy 09/11 - 09/[address] chest on 09/14 with significant improvement in right sided loculated effusion. Moderate amount of residual pleural fluid with loculated components. Continue good pulmonary hygiene: OOB, cough and deep breathe, IS. Mandibular XR (09/16): pending CXR (09/16): chest tube removed, no pneumothorax, right lower lung discoid atelectasis, minimal consolidation, and small pleural effusion Pulmonary removed chest tube without problems, and has set a follow up appointment Dr Kermit isidro augmentin for 3 weeks, then follow up with him. Start Augmentin PO Start Flexeril PO Start Guaifenesin PO Start Percocet PO Nicotine dependence Smokes a pack per day and vapes. Smoking cessation discussed with patient. She is planning to stop. Obesity -BMI 34.12 Encourage diet and exercise Discharge Medications Discharge Medications New Medications Details amoxicillin-clavulanate 875-125 mg per tablet Commonly known as: AUGMENTIN Take 1 (one) tablet by mouth 2 (two) times a day for 21 days . Quantity: 42 tablet cyclobenzaprine 5 MG tablet Commonly known as: FLEXERIL Take 1 (one) tablet (5 mg total) by mouth 3 (three) times a day as needed for muscle spasms . Quantity: 30 tablet guaiFENesin 600 mg 12 hr tablet Commonly known as: MUCINEX Take 1 (one) tablet (600 mg total) by mouth every 12 (twelve) hours . Quantity: 60 tablet oxyCODONE-acetaminophen 5-325 mg per tablet Commonly known as: PERCOCET Take 1 (one) tablet by mouth every 6 (six) hours as needed (Days supply per fill: 5) . Quantity: 15 tablet Physician(s) Follow Up: Chandu Mathew MD [address] [place] [id number] Follow up on 12/06/[address] Mathew on 12/06/2024 at 9am. Russ Carmen MD [address] [place] [id number] Follow up in 3 week(s) Call the office to make an appointment Condition at Discharge: Stable Disposition: Home I reviewed discharge recommendations with the patient in person. Patient instructions, including activity, were given to the patient/family at discharge. On day of discharge I saw Gricel Patel and spent: > 30 minutes on discharge. Completed by: Monse Gonsales CNP on 09/16/24, 4:34 PM documented in this encounter [facility] 09-16-2024 Progress note Formatting of t his note might be different from the original. AM chest xray reviewed. Right sided chest tube has been to water seal x 24 hours with minimal drainage. Chest tube removed. Patient tolerated well. Repeat CXR at 1400. Case discussed with Dr. Ambrocio Ford on 09/15/2024 by PITA Pearson with recommendations for care home antibiotics, repeat chest imaging, and follow up with pulmonary. CT chest ordered to be completed in 4 weeks - added to discharge rec. Follow up with Dr Mathew (outpatient pulmonary) on 12/06/2024 at 9am - placed on AVS. Defer oral antibiotic therapy to ID. From a pulmonary standpoint, patient is ok to discharge once oral antibiotics and and repeat CXR completed. Discussed with hospitalist provider, Shreya Gonsales CNP. [facility] 09-16-2024 Miscellaneous Notes AM chest xray reviewed. Right sided chest tube has been to water seal x 24 hours with minimal drainage. Chest tube removed. Patient tolerated well. Repeat CXR at 1400. Case discussed with Dr. Ambrocio Ford on 09/15/2024 by PITA Pearson with recommendations for care home antibiotics, repeat chest imaging, and follow up with pulmonary. CT chest ordered to be completed in 4 weeks - added to discharge rec. Follow up with Dr Mathew (outpatient pulmonary) on 12/06/2024 at 9am - placed on AVS. Defer oral antibiotic therapy to ID. From a pulmonary standpoint, patient is ok to discharge once oral antibiotics and and repeat CXR completed. Discussed with hospitalist provider, Shreya Gonsales CNP. Problem: Actual or potential alteration in health Goal: Absence of healthcare acquired conditions Outcome: Partially Met Goal: Knowledge of Interdisciplinary Plan of Care Outcome: Partially Met Goal: Knowledge of Enviroment Outcome: Partially Met Problem: Pain Goal: Reduced pain sensation Outcome: Partially Met Goal: Control of acute pain to acceptable level Outcome: Partially Met Goal: Able to cope with pain Outcome: Partially Met Goal: Able to achieve maximum level of physical functioning Outcome: Partially Met Goal: Able to achieve maximum level of psychosocial functioning Outcome: Partially Met Problem: Airway Clearance - Ineffective Goal: Effective airway clearance Outcome: Partially Met Problem: Fluid Volume Deficit Goal: Absence of fluid volume deficit signs and symptoms Description: DETAIL: (eg, dry mucous membranes, urine volume less than 30 cc per hour, decreased skin turgor, impaired mental status) Outcome: Partially Met Problem: Gas Exchange - Impaired Goal: Adequate oxygenation Description: DETAIL: (eg, pulse oximetry higher than 95%, respiratory rate 12 to 16 breaths per minute, lips and nailbeds pink, normal mentation) Outcome: Partially Met Problem: Infection Goal: Absence of infection signs and symptoms Description: DETAIL: (eg, decreased blood pressure, increased body temperature, increased pulse rate, impaired mental status) Outcome: Partially Met Problem: Transition Readiness Goal: Able to safely transition to next level of care Outcome: Partially Met Goal: Knowledge of care transition plan Outcome: Partially Met Goal: Participation in care planning Outcome: Partially Met Problem: Pressure Injury, Risk of Goal: Absence of pressure injury Outcome: Partially Met Problem: Actual or potential alteration in health Goal: Absence of healthcare acquired conditions Outcome: Partially Met Goal: Knowledge of Interdisciplinary Plan of Care Outcome: Partially Met Goal: Knowledge of Enviroment Outcome: Partially Met Problem: Pain Goal: Reduced pain sensation Outcome: Partially Met Goal: Control of acute pain to acceptable level Outcome: Partially Met Goal: Able to cope with pain Outcome: Partially Met Goal: Able to achieve maximum level of physical functioning Outcome: Partially Met Goal: Able to achieve maximum level of psychosocial functioning Outcome: Partially Met Problem: Airway Clearance - Ineffective Goal: Effective airway clearance Outcome: Partially Met Problem: Fluid Volume Deficit Goal: Absence of fluid volume deficit signs and symptoms Description: DETAIL: (eg, dry mucous membranes, urine volume less than 30 cc per hour, decreased skin turgor, impaired mental status) Outcome: Partially Met Problem: Gas Exchange - Impaired Goal: Adequate oxygenation Description: DETAIL: (eg, pulse oximetry higher than 95%, respiratory rate 12 to 16 breaths per minute, lips and nailbeds pink, normal mentation) Outcome: Partially Met Problem: Infection Goal: Absence of infection signs and symptoms Description: DETAIL: (eg, decreased blood pressure, increased body temperature, increased pulse rate, impaired mental status) Outcome: Partially Met Problem: Transition Readiness Goal: Able to safely transition to next level of care Outcome: Partially Met Goal: Knowledge of care transition plan Outcome: Partially Met Goal: Participation in care planning Outcome: Partially Met Problem: Pressure Injury, Risk of Goal: Absence of pressure injury Outcome: Partially Met CXR reviewed with R small apical PTX. R empyema appears to have worsened in comparison to previous imaging. Place chest tube to -20cm H2O. Will plan on additional dose of intrapleural lytic therapy. If patient is not responsive to intrapleural lytics patient will likely need transfer for VATS. [employer] Bundle Lung Expansion Indications: Pulmonary atelectasis (suspected/documented) Levels: Level 1 Criteria : Stable respiratory status with Inspiratory Capacity (IC) greater than or equal to 30% Predicted and Fraction of Inspired Oxygen (FiO2) less than or equal to 40% Management : Therapeutic Treatment: Inspiratory Capacity greater than or equal to 30% and less than Interventions: Supervised Incentive Spirometry twice a day (BID) and every 2 hours PRN for hypoxia. Airway Clearance Indications: Not applicable Levels: Not applicable Moriah Watt RRT Problem: Actual or potential alteration in health Goal: Absence of healthcare acquired conditions Outcome: Partially Met Goal: Knowledge of Interdisciplinary Plan of Care Outcome: Partially Met Goal: Knowledge of Enviroment Outcome: Partially Met Problem: Pain Goal: Reduced pain sensation Outcome: Partially Met Goal: Control of acute pain to acceptable level Outcome: Partially Met Goal: Able to cope with pain Outcome: Partially Met Goal: Able to achieve maximum level of physical functioning Outcome: Partially Met Goal: Able to achieve maximum level of psychosocial functioning Outcome: Partially Met Problem: Airway Clearance - Ineffective Goal: Effective airway clearance Outcome: Partially Met Problem: Fluid Volume Deficit Goal: Absence of fluid volume deficit signs and symptoms Description: DETAIL: (eg, dry mucous membranes, urine volume less than 30 cc per hour, decreased skin turgor, impaired mental status) Outcome: Partially Met Problem: Gas Exchange - Impaired Goal: Adequate oxygenation Description: DETAIL: (eg, pulse oximetry higher than 95%, respiratory rate 12 to 16 breaths per minute, lips and nailbeds pink, normal mentation) Outcome: Partially Met Problem: Infection Goal: Absence of infection signs and symptoms Description: DETAIL: (eg, decreased blood pressure, increased body temperature, increased pulse rate, impaired mental status) Outcome: Partially Met Problem: Transition Readiness Goal: Able to safely transition to next level of care Outcome: Partially Met Goal: Knowledge of care transition plan Outcome: Partially Met Goal: Participation in care planning Outcome: Partially Met Problem: Actual or potential alteration in health Goal: Absence of healthcare acquired conditions Outcome: Partially Met Goal: Knowledge of Interdisciplinary Plan of Care Outcome: Partially Met Goal: Knowledge of Enviroment Outcome: Partially Met Problem: Pain Goal: Reduced pain sensation Outcome: Partially Met Goal: Control of acute pain to acceptable level Outcome: Partially Met Goal: Able to cope with pain Outcome: Partially Met Goal: Able to achieve maximum level of physical functioning Outcome: Partially Met Goal: Able to achieve maximum level of psychosocial functioning Outcome: Partially Met Problem: Airway Clearance - Ineffective Goal: Effective airway clearance Outcome: Partially Met Problem: Airway Clearance - Ineffective Goal: Effective airway clearance Outcome: Partially Met Problem: Fluid Volume Deficit Goal: Absence of fluid volume deficit signs and symptoms Description: DETAIL: (eg, dry mucous membranes, urine volume less than 30 cc per hour, decreased skin turgor, impaired mental status) Outcome: Partially Met Problem: Gas Exchange - Impaired Goal: Adequate oxygenation Description: DETAIL: (eg, pulse oximetry higher than 95%, respiratory rate 12 to 16 breaths per minute, lips and nailbeds pink, normal mentation) Outcome: Partially Met Problem: Infection Goal: Absence of infection signs and symptoms Description: DETAIL: (eg, decreased blood pressure, increased body temperature, increased pulse rate, impaired mental status) Outcome: Partially Met Problem: Transition Readiness Goal: Able to safely transition to next level of care Outcome: Partially Met Goal: Knowledge of care transition plan Outcome: Partially Met Goal: Participation in care planning Outcome: Partially Met [employer] Bundle Lung Expansion Indications: Pulmonary atelectasis (suspected/documented) Levels: Level 1 Criteria : Stable respiratory status with Inspiratory Capacity (IC) greater than or equal to 30% Predicted and Fraction of Inspired Oxygen (FiO2) less than or equal to 40% Management : Therapeutic Treatment: Inspiratory Capacity greater than or equal to 30% and less than Interventions: Supervised Incentive Spirometry twice a day (BID) and every 2 hours PRN for hypoxia. Airway Clearance Indications: Not applicable Levels: Not applicable Moriah Watt RRT Problem: Actual or potential alteration in health Goal: Absence of healthcare acquired conditions Outcome: Partially Met Goal: Knowledge of Interdisciplinary Plan of Care Outcome: Partially Met Goal: Knowledge of Enviroment Outcome: Partially Met Problem: Pain Goal: Reduced pain sensation Outcome: Partially Met Goal: Control of acute pain to acceptable level Outcome: Partially Met Goal: Able to cope with pain Outcome: Partially Met Goal: Able to achieve maximum level of physical functioning Outcome: Partially Met Goal: Able to achieve maximum level of psychosocial functioning Outcome: Partially Met Problem: Actual or potential alteration in health Goal: Absence of healthcare acquired conditions Outcome: Partially Met Goal: Knowledge of Interdisciplinary Plan of Care Outcome: Partially Met Goal: Knowledge of Enviroment Outcome: Partially Met Problem: Pain Goal: Reduced pain sensation Outcome: Partially Met Goal: Control of acute pain to acceptable level Outcome: Partially Met Goal: Able to cope with pain Outcome: Partially Met Goal: Able to achieve maximum level of physical functioning Outcome: Partially Met Goal: Able to achieve maximum level of psychosocial functioning Outcome: Partially Met AM CXR reviewed with significant improvement noted. Intrapleural lytic therapy administered to right chest tube. Chest tube clamped. Patient instructed to turn from side to side q15 minutes. Patient tolerated well. 1335: Chest tube unclamped. -20cm suction. Draining serosanguinous fluid. Plan for CT chest in AM to re-evaluate empyema. Problem: Actual or potential alteration in health Goal: Absence of healthcare acquired conditions Outcome: Partially Met Goal: Knowledge of Interdisciplinary Plan of Care Outcome: Partially Met Goal: Knowledge of Enviroment Outcome: Partially Met Problem: Pain Goal: Reduced pain sensation Outcome: Partially Met Goal: Control of acute pain to acceptable level Outcome: Partially Met Goal: Able to cope with pain Outcome: Partially Met Goal: Able to achieve maximum level of physical functioning Outcome: Partially Met Goal: Able to achieve maximum level of psychosocial functioning Outcome: Partially Met AM CXR reviewed with mild improvement. 2nd dose of lytic therapy administered to right chest tube. Chest tube clamped. Pt instructed to reposition [id number]. Will unclamp in 1 hour. 1315 Chest tube unclamped, to suction -20cm. Draining serous/purulent fluid. Patient tolerating well. Repeat CXR in AM to re-assess empyema and need for continued lytic therapy. Intrapleural lytics administered to right chest tube. CT clamped. Patient tolerated well. Instructed to rotate q15 minutes. Will unclamp in 1 hour. 1405: Chest tube unclamped with -20cm continuous suction. 125ml immediately drained. Patient tolerated well. CT chest personally reviewed with the appearance of chest tube outside of the pleural space and PTX ex vacuo. Removed chest tube at end expiration, covered site with vaseline gauze, sterile 4X4 and secured with silk tape. Discussed with patient and IR about requiring new chest tube. IR consult placed. Problem: Actual or potential alteration in health Goal: Absence of healthcare acquired conditions Outcome: Partially Met Goal: Knowledge of Interdisciplinary Plan of Care Outcome: Partially Met Goal: Knowledge of Enviroment Outcome: Partially Met Problem: Pain Goal: Reduced pain sensation Outcome: Partially Met Goal: Control of acute pain to acceptable level Outcome: Partially Met Goal: Able to cope with pain Outcome: Partially Met Goal: Able to achieve maximum level of physical functioning Outcome: Partially Met Goal: Able to achieve maximum level of psychosocial functioning Outcome: Partially Met .RT Therapeutics Bundle Lung Expansion Indications: Not applicable Levels: Level 1 Criteria : Stable respiratory status with Fraction of Inspired Oxygen (FiO2) less than or equal to 40% Management : Therapeutic Treatment: Inspiratory Capacity greater than or equal to 30% and less than Interventions: Supervised Incentive Spirometry twice a day (BID) and every 2 hours PRN for hypoxia. Airway Clearance Indications: Not applicable Levels: Not applicable RT bundle re assess 09/10 TROY HALL RRT [facility] Utilization Review Notes EMERGENCY TEMPLATE HISTORY OF PRESENT ILLNESS:38-year-old female with no documented past history status post appendectomy presented with complaints of pain under her right breast wrapping around her back. Onset around 1.5 weeks ago intermittently gradually getting worse. Today it was very intense that she could not even take minimally deep breath. Any movement would make it worse as well. VITAL SIGNS: 98.9 (37.2) 103 Abnormal 18 116/79 94% RA EKG:NOC WEIGHT: 93 kg LABS: (Abnormal / Relevant):WBC-15.06 IMAGING: (Abnormal / Relevant): CT Chest/Abd/Pelvis: 1. A modest rind of nonspecific right pleural fluid. Given morphology likely there is some internal complexity to the material. There is some associated atelectasis aspects of the right middle lobe and right lower lobe. 2. No acute finding in the abdomen or pelvis. ED TX:IV Flagyl IVPB 500 mg q 8 hr, IV 0.9%NS bolus 1000 ml x 1, IV 0.9%NS 75 ml/hr continuous DX:Right lung loculated effusion ASSESSMENT / PLAN: Right lung loculated effusion Right lower lobe pneumonia Severe pleuritic pain Atelectasis CT CAP reviewed-modest rind of nonspecific right pleural fluid, internal complexity noted, seems loculated. Associated atelectasis of right middle and lower lobe. Obtain sputum and blood cultures. Etiology unclear but probably dental, she needs couple teeth extracted. Ceftriaxone and Flagyl for anaerobic coverage. No association with healthcare institution, no need for MRSA coverage at this time. IV Toradol and steroids for pleuritic pain. Received 1 L bolus at freestanding ER, will give another liter and start on MIF. Pulmonary consult. Discussed with Dr. Rawls consult to evaluate for thoracentesis versus chest tube. Definitive treatment will depend on drainage. DISPO: TBD Problem: Actual or potential alteration in health Goal: Absence of healthcare acquired conditions Outcome: Partially Met Goal: Knowledge of Interdisciplinary Plan of Care Outcome: Partially Met Goal: Knowledge of Enviroment Outcome: Partially Met Problem: Pain Goal: Reduced pain sensation Outcome: Partially Met Goal: Control of acute pain to acceptable level Outcome: Partially Met Goal: Able to cope with pain Outcome: Partially Met Goal: Able to achieve maximum level of physical functioning Outcome: Partially Met Goal: Able to achieve maximum level of psychosocial functioning Outcome: Partially Met Problem: Actual or potential alteration in health Goal: Absence of healthcare acquired conditions Outcome: Partially Met Goal: Knowledge of Interdisciplinary Plan of Care Outcome: Partially Met Goal: Knowledge of Enviroment Outcome: Partially Met Problem: Pain Goal: Reduced pain sensation Outcome: Partially Met Goal: Control of acute pain to acceptable level Outcome: Partially Met Goal: Able to cope with pain Outcome: Partially Met Goal: Able to achieve maximum level of physical functioning Outcome: Partially Met Goal: Able to achieve maximum level of psychosocial functioning Outcome: Partially Met RT [employer]rapeutics Bundle Lung Expansion Indications: Pulmonary atelectasis (suspected/documented) Levels: Level 1 Criteria : Stable respiratory status with Fraction of Inspired Oxygen (FiO2) less than or equal to 40% Management : Therapeutic Treatment: Inspiratory Capacity greater than or equal to 30% and less than Interventions: Supervised Incentive Spirometry twice a day (BID) and every 2 hours PRN for hypoxia. Airway Clearance Indications: Not applicable Levels: Not applicable Sera Ruiz RRT documented in this encounter [facility] 09-16-2024 Note Patient Name: Eric Patel Admit Date: [id number] MR #: [id number] : 1985 Physicians: Krystle, Physician (Family); Randy Garber MD (Referring) Assessment: Patient with 1. Right-sided chest empyema, 2. Pneumonia, 3. Loculated pleural fluid, 4. Leukocytosis, 5. Right-sided chest pain Plan: Continue patient on current therapy Patient on IV ceftriaxone Patient on IV metronidazole Patient status post chest tube insertion. I reviewed blood cultures with no growth Reviewed pleural body fluid with no growth Reviewed pleural fluid cell analysis, with RBC of 13,000, WBC of 42,000, neutrophil 91%. To see if we can get a sputum culture if possible. ESR, C-reactive protein. HIV screening Seems that leukocytosis is improving. Get urine for strep antigen and Legionella I reviewed previous CT scan, and CT scan of today, with improving hydropneumothorax, and also, with right-sided chest tube in place, and small to moderate amount of residual pleural fluid and pleural thickening, with small loculated component of pleural fluid. CT scan: Chest x-ray: With small right pleural effusion with increased conspicuity of right basilar discoid atelectasis lower chest tube in place. Patient quitting vaping, Sputum culture: With mixed zaki. Get Panorex, patient should also follow-up with her dentist. Will continue to follow with you. I discussed with the cargo router Dr. Johnson management plan. I discussed with the mom at the bedside on management plan. Disposition Comments: Patient will be discharged home on oral Augmentin for 3 weeks. Follow-up with clinic in 2 weeks. Subjective: Patient seen today lying quietly on her bed and in no obvious distress. Chest tube removed this afternoon. Patient doing well today. Patient has no fever or chills and is saturating well on room air at 95%. Exam: PACU Vitals 09/16/24 0848 BP: 134/89 Pulse: 81 Resp: 16 Temp: 98.3 degrees F (36.8 degrees C) SpO2: 95% Allergies: Patient has no known allergies. Medications Reviewed. Current Medications[1] Review of Systems: Constitutional: Negative for fatigue, change in appetite, chills and fever. HENT: Negative for congestion and rhinorrhea. Negative for ear pain, sore throat. Eyes: Negative for pain and redness. Respiratory: Negative for cough and shortness of breath. Cardiovascular: Negative for chest pain and palpitations. Gastrointestinal: Negative for abdominal pain, constipation, diarrhea, nausea and vomiting. Genitourinary: Negative for difficulty urinating, dysuria, frequency, hesitancy, flank pain Musculoskeletal: Negative for back pain, neck pain and neck stiffness. Skin: Negative for color change and rash. Neurological: Negative for lightheadedness, dizziness, syncope, weakness and headaches. Psychiatric/Behavioral: Negative for confusion, hallucinations and suicidal ideas. Positives and pertinent negatives as per HPI. PMH/PSH/SH/FH reviewed, no change Chart Reviewed. Exam Findings: ENT: No oral candidiasis Chest: Lungs clear bilaterally, no wheezing, or rales CVS: Normal S1 & S2+, Normal Rhythm Abdomen: Normal symmetry, Soft/non-tender. Benign, BS+ Extremities: No Deformities or Edema Skin: Intact & No Rashes, or excoriations Musculoskeletal: No joint swelling, non tender LIFE TRAINER: Awake, and Ox3 Wound: Samuel Catheter: IV Access: yes I reviewed Medications. I reviewed Labs. XR Chest 1 View Final Result FINDINGS/ 1. Increased density at the right lung base, seems slightly better compared to previous study. The remaining lungs appear normal. 2. The trachea is midline. The aorta has normal contour. The heart size remains normal. The visualized osseous structures are normal. 3. The tubular device along the lower chest remains unchanged. [employer] Workstation ID: [id number] XR Chest 1 View Final Result Stable right chest tube. There is no pneumothorax. Stable bandlike atelectasis within the right lower chest and additional opacity at the right lung base secondary to a small right pleural effusion and atelectasis and/or infiltrate. Workstation ID: [id number] CT Chest Thorax With Contrast Final Result 1. Right chest tube unchanged in position. Small to moderate residual right pleural effusion with pleural thickening in the inferolateral right chest with small loculated components posteriorly and along the right major fissure. Small pneumothorax component is unchanged. 2. [id number] infiltrative changes and atelectasis in the right lower lobe and right middle lobe, unchanged. Ongoing pneumonia/inflammatory airways disease in this area is a consideration. 3. Minimal atelectasis in the left lower lobe. [employer] Workstation ID: [id number] CT Chest Without Contrast Final Result 1. Right chest tube tip positioned in the medial right cardiophrenic region with significant improvement in the right-sided hydropneum (more content not included)... [facility] 09-15-2024 Plan of care note Problem: Actual or potential alteration in health Goal: Absence of healthcare acquired conditions Outcome: Partially Met Goal: Knowledge of Interdisciplinary Plan of Care Outcome: Partially Met Goal: Knowledge of Enviroment Outcome: Partially Met Problem: Pain Goal: Reduced pain sensation Outcome: Partially Met Goal: Control of acute pain to acceptable level Outcome: Partially Met Goal: Able to cope with pain Outcome: Partially Met Goal: Able to achieve maximum level of physical functioning Outcome: Partially Met Goal: Able to achieve maximum level of psychosocial functioning Outcome: Partially Met Problem: Airway Clearance - Ineffective Goal: Effective airway clearance Outcome: Partially Met Problem: Fluid Volume Deficit Goal: Absence of fluid volume deficit signs and symptoms Description: DETAIL: (eg, dry mucous membranes, urine volume less than 30 cc per hour, decreased skin turgor, impaired mental status) Outcome: Partially Met Problem: Gas Exchange - Impaired Goal: Adequate oxygenation Description: DETAIL: (eg, pulse oximetry higher than 95%, respiratory rate 12 to 16 breaths per minute, lips and nailbeds pink, normal mentation) Outcome: Partially Met Problem: Infection Goal: Absence of infection signs and symptoms Description: DETAIL: (eg, decreased blood pressure, increased body temperature, increased pulse rate, impaired mental status) Outcome: Partially Met Problem: Transition Readiness Goal: Able to safely transition to next level of care Outcome: Partially Met Goal: Knowledge of care transition plan Outcome: Partially Met Goal: Participation in care planning Outcome: Partially Met Problem: Pressure Injury, Risk of Goal: Absence of pressure injury Outcome: Partially Met [facility] 09-15-2024 Note Pulmonary-Critical C are Progress Note: Patient Identification Gricel Patel, 1985 Code Status: Full Code Subjective: Seen at bedside Opening chest tube to suction after lytic therapy - minimal output Will repeat cxr for eval Discussed with patient, will ask CT Surgery to weigh in Would continue abx Objective: Physical Exam: Exam: Gen: nad, a*ox3 CV: rrr, no murmurs Resp: diminished R chest, mproved aeration Chest: R chest tube noted, with serous fluid in tubing - connected to suction Abd: soft, ntnd, +bs MSK: no swelling, no edema, no joint swelling noted Neuro: cn ii-xii grossly intact, strength grossly intact upper/lower/bilateral, follows commands Psych: cooperative, appropriate mood Assessment/Impression: This is a 39 y.o. female with no pmhx. Pulm/Crit is being consulted for R sided empyema, chest tube management. R Pleural Effusion, Moderate - Empyema, m/l Loculated S/p chest tube 09/08, replaced 09/10 Lytic therapy - 09/11, 09/12 R Sided Loculated Pockets / Abscess Suspicion for Abscess with airway tracking to pocket Sepsis, 2/2 to above, improved Acute Hypoxic Resp Failure 2/2 to above, improved RLL Pneumonia - CAP, Aspiration (dental?) R Sided Chest Pain / Pleuritic Chest Pain - improved Tobacco Abuse Disorder / Vape Abuse Obesity Class I Plan/Recommendations: - cxr reviewed, increased RLL / R lower chest opacity - possible continue fluid reaccumulation - will repeat lytic therapy today - monitor output - continue abx therapy - follow up cultures, cytology - encourage sitting up in chair, incentive spirometry - pain control - acetaminophen prn, lidocaine patch to site of chest tube - will consult CT Surgery Code Status: FULL Disposition: ct imaging reviewed, increased effusion on cxr this am - will repeat lytic therapy, consult CT Surg to assist - discussed plan with patient Critical Care Time: 35 mins This Critical Care Time was spent on evaluating, managing and providing care to this critically ill patient. Includes time spent at bedside, reviewing laboratory and radiology findings, discussing plan of care and concerns with ICU staff and consulting services, and making critical decisions regarding patients' response to treatment. This time was exclusive of any procedures performed separately. Date of Service: 09/15/24 Bryan Johnson MD MPH Critical Care Medicine Pulmonary Medicine Vitals/IOs: Temp: [97.8 degrees F (36.6 degrees C)-98.5 degrees F (36.9 degrees C)] 97.9 degrees F (36.6 degrees C) Heart Rate: [74-83] 82 Resp: [15-18] 16 BP: (110-133)/(71-95) 124/85 Temp (24hrs), Av.2 degrees F (36.8 degrees C), Min:97.8 degrees F (36.6 degrees C), Max:98.5 degrees F (36.9 degrees C) Intake/Output last 3 shifts: I/O last 3 completed shifts: In: 2235 [P.O.:580; I.V.:471.7; IV Piggyback:1183.3] Out: 0 Fluid Status: Intake/Output Summary (Last 24 hours) at 09/15/2024 1215 Last data filed at 09/15/2024 0900 Gross per 24 hour Intake 865 ml Output 0 ml Net 865 ml Laboratory: Results from last 7 days Lab Units 09/15/24 0738 09/14/24 0458 09/13/24 0540 09/11/24 0536 09/10/24 0317 09/10/24 0313 09/09/24 1154 WBC K/mcL 10.07 12.08* 13.06* < > -- < > -- HGB g/dL 12.9 13.0 13.6 < > -- < > -- HCT % 39.8 40.2 40.5 < > -- < > -- MCV fL 90.7 90.3 87.7 < > -- < > -- PLT K/mcL 484* 481* 482* < > -- < > -- BUN mg/dL 10 11 8 < > -- < > -- SODIUM mmol/L 137 138 138 < > -- < > -- POTASSIUM mmol/L 3.7 3.5 3.7 < > -- < > -- CHLORIDE mmol/L 102 101 103 < > -- < > -- INR -- -- -- -- 1.3* -- 1.4* < > = values in this interval not displayed. Imaging: Results for orders placed during the hospital encounter of 09/07/24 XR Chest 1 View Narrative EXAMINATION: XR CHEST PA/AP HISTORY: ORDERING SYSTEM PROVIDED HISTORY: Chest tube/empyema, TECHNOLOGIST PROVIDED HISTORY: Illness/Other Reason for exam: Chest tube/empyema Cancer History: u Surgery, RadiationHistory: u Encounter Type: Ongoing Additional signs and symptoms: Chest tube/empyema ORDERING SYSTEM PROVIDED DIAGNOSIS CODES: J18.9 Parapneumonic effusion J91.8 Parapneumonic effusion COMPARISON: Portable chest radiograph dated 09/11/2024. TECHNIQUE: AP upright portable chest radiograph performed. FINDINGS: Stable pleural catheter with the distal tip along the medial aspect of the right lower chest. There is a persistent however smaller, small pneumothorax along the lateral margin of the right lower chest measuring 1.1 cm in transverse dimension. There is persistent patchy and dense consolidation within the right lower chest suggesting atelectasis and/or infiltrate. There is a small amount of pleural fluid along the lateral margin of the right mid chest. There is no pulmonary vascular congestion. There is a small calcified granuloma laterally within the lef (more content not included)... [facility] 09-15-2024 Plan of care note Problem: Actual or potential alteration in health Goal: Absence of healthcare acquired conditions Outcome: Partially Met Goal: Knowledge of Interdisciplinary Plan of Care Outcome: Partially Met Goal: Knowledge of Enviroment Outcome: Partially Met Problem: Pain Goal: Reduced pain sensation Outcome: Partially Met Goal: Control of acute pain to acceptable level Outcome: Partially Met Goal: Able to cope with pain Outcome: Partially Met Goal: Able to achieve maximum level of physical functioning Outcome: Partially Met Goal: Able to achieve maximum level of psychosocial functioning Outcome: Partially Met Problem: Airway Clearance - Ineffective Goal: Effective airway clearance Outcome: Partially Met Problem: Fluid Volume Deficit Goal: Absence of fluid volume deficit signs and symptoms Description: DETAIL: (eg, dry mucous membranes, urine volume less than 30 cc per hour, decreased skin turgor, impaired mental status) Outcome: Partially Met Problem: Gas Exchange - Impaired Goal: Adequate oxygenation Description: DETAIL: (eg, pulse oximetry higher than 95%, respiratory rate 12 to 16 breaths per minute, lips and nailbeds pink, normal mentation) Outcome: Partially Met Problem: Infection Goal: Absence of infection signs and symptoms Description: DETAIL: (eg, decreased blood pressure, increased body temperature, increased pulse rate, impaired mental status) Outcome: Partially Met Problem: Transition Readiness Goal: Able to safely transition to next level of care Outcome: Partially Met Goal: Knowledge of care transition plan Outcome: Partially Met Goal: Participation in care planning Outcome: Partially Met Problem: Pressure Injury, Risk of Goal: Absence of pressure injury Outcome: Partially Met [facility] 09-15-2024 Progress note Formatting of t his note might be different from the original. CXR reviewed with R small apical PTX. R empyema appears to have worsened in comparison to previous imaging. Place chest tube to -20cm H2O. Will plan on additional dose of intrapleural lytic therapy. If patient is not responsive to intrapleural lytics patient will likely need transfer for VATS. [facility] 09-15-2024 Note HMS PROGRESS NOTE Patient Name: Gricel Patel : 1985 Assessment and Plan Gricel Patel is a 38 y.o. female patient of No, Physician with no documented past history status post appendectomy presented with complaints of pain under her right breast wrapping around her back. Sepsis, POA, resolved Right lung loculated effusion Right lower lobe pneumonia Possibly secondary to dental infection. CT CAP reviewed-modest rind of nonspecific right pleural fluid, internal complexity noted, seems loculated. Associated atelectasis of right middle and lower lobe. Pleural fluid studies consistent with exudative/empyema. Cytology negative. Blood, sputum, and aerobic/anaerobic pleural fluid cultures NTD. Completed course of oral steroids. On Ceftriaxone/Flagyl (started on 09/07). Chest tube placement on 09/08 - dislodged, replaced on 09/10 per IR. Intrapleural lytic therapy 09/11 -09/[address] chest on 09/14 with significant improvement in right sided loculated effusion. Moderate amount of residual pleural fluid with loculated components. Intrapleural lytic therapy 09/14, 09/15 Continue good pulmonary hygiene: OOB, cough and deep breathe, IS. Pulmonary following. Pain management. Nicotine dependence Smokes a pack per day and vapes. Smoking cessation Obesity -BMI 34.12 Encourage diet and exercise Discharge Planning Patient Medically Ready for Discharge: no Patient requires continued hospitalization due to: Pain management, IV Antibiotics, Intrapleural lytics and chest tube. Expected Date of Discharge: TBD Expected Discharge Location: Home Quality Measures DVT Prophylaxis: lovenox Samuel Catheter: absent Code Status Full Code Subjective Patient resting in bed, still endorses pain at chest tube site, but feeling better. No reported fever or chills. Decreased drainage in CT Objective BP 129/86 Pulse 74 Temp 97.8 degrees F (36.6 degrees C) (Oral) Resp 16 Ht 5' 5 Wt 93 kg (205 lb 0.4 oz) LMP (LMP Unknown) Comment: preg test done and neg SpO2 93% BMI 34.12 kg/m Physical Examination General Appearance: alert; well appearing; in moderate acute distress HEENT: Head- normocephalic; Eyes- EOMI, sclera anicteric; Throat- mucous membranes moist Cardiovascular: regular rate and rhythm; normal S1, S2; no murmurs, rubs, clicks or gallops; peripheral edema absent Respiratory: lungs clear to auscultation; without wheezes, rales or rhonchi; on room air; pain with palpation to back Abdomen: soft, non-tender, non-distended Neurological: oriented x 3; normal speech; no focal findings or movement disorder noted Musculoskeletal: no significant deformity or tenderness to palpation Skin: normal coloration, Right chest tube intact with suction , no crepitus noted Psych: normal mood and affect AUTHENTICATED BY CELIA BENNETT ON 09/15/2024 10:17:16 [facility] 09-15-2024 Progress note Formatting of t his note might be different from the original. [employer] Bundle Lung Expansion Indications: Pulmonary atelectasis (suspected/documented) Levels: Level 1 Criteria : Stable respiratory status with Inspiratory Capacity (IC) greater than or equal to 30% Predicted and Fraction of Inspired Oxygen (FiO2) less than or equal to 40% Management : Therapeutic Treatment: Inspiratory Capacity greater than or equal to 30% and less than Interventions: Supervised Incentive Spirometry twice a day (BID) and every 2 hours PRN for hypoxia. Airway Clearance Indications: Not applicable Levels: Not applicable Moriah Watt RRT [facility] 09-14-2024 Plan of care note Problem: Actual or potential alteration in health Goal: Absence of healthcare acquired conditions Outcome: Partially Met Goal: Knowledge of Interdisciplinary Plan of Care Outcome: Partially Met Goal: Knowledge of Enviroment Outcome: Partially Met Problem: Pain Goal: Reduced pain sensation Outcome: Partially Met Goal: Control of acute pain to acceptable level Outcome: Partially Met Goal: Able to cope with pain Outcome: Partially Met Goal: Able to achieve maximum level of physical functioning Outcome: Partially Met Goal: Able to achieve maximum level of psychosocial functioning Outcome: Partially Met Problem: Airway Clearance - Ineffective Goal: Effective airway clearance Outcome: Partially Met Problem: Fluid Volume Deficit Goal: Absence of fluid volume deficit signs and symptoms Description: DETAIL: (eg, dry mucous membranes, urine volume less than 30 cc per hour, decreased skin turgor, impaired mental status) Outcome: Partially Met Problem: Gas Exchange - Impaired Goal: Adequate oxygenation Description: DETAIL: (eg, pulse oximetry higher than 95%, respiratory rate 12 to 16 breaths per minute, lips and nailbeds pink, normal mentation) Outcome: Partially Met Problem: Infection Goal: Absence of infection signs and symptoms Description: DETAIL: (eg, decreased blood pressure, increased body temperature, increased pulse rate, impaired mental status) Outcome: Partially Met Problem: Transition Readiness Goal: Able to safely transition to next level of care Outcome: Partially Met Goal: Knowledge of care transition plan Outcome: Partially Met Goal: Participation in care planning Outcome: Partially Met [facility] 09-14-2024 Consult note Formatting of th is note is different from the original. Patient Name: Gricel Patel MR #: [id number] : 1985 Physicians: Krystle, Physician (Family); Randy Garber MD (Referring) Chief complaint: Gricel Patel is a 39 y.o. female presented with right-sided chest pain not improving. History: I have reviewed the patient's past medical history, past surgical history, family history, social history. Today patient evaluated with history of appendectomy in the past. Who had presented about 7 days ago with worsening history of right-sided chest pain, and some small cough. She did not have fever or chills, mom who was at bedside states that patient was having a lot of night sweats. She did not have any history of travel and no sick contact. Patient remembered that in February she had some flulike symptoms, and the dad also had similar symptoms. She did not have any history of pets or any history of vomiting. She was found on admission with Tmax of 98.9. Patient states that she vapes, but no smoking.. Patient had initially presented at [facility], was found with some Nonspecific right pleural fluid and was transferred to [facility] for continuation of treatment. She was thought of having empyema, and has since been followed by the cargo router, was status post percutaneous chest tube insertion by the interventional radiologist at the right chest.She had pleural fluid analysis that showed an RBC of 13,000, WBC of 42,000 and neutrophil of 91%. LDH was more than 2000 MRSA swab was negative. And patient also was found with leukocytosis WBC of 19,000 since on admission. Blood cultures have shown no growth including pleural fluid culture with no growth. Patient had a repeat CT scan that had shown right-sided chest tube in place, with significant improvement of hydropneumothorax in the right side small to moderate amount of residual pleural fluid and pleural thickening with small loculated fluid noted, moderate residual infiltrate noted. Patient is currently being evaluated for right-sided empyema, pneumonia, with loculated pleural fluid, leukocytosis, right-sided chest pain, and also for antibiotics management.. History reviewed. No pertinent past medical history. Past Surgical History: Procedure Laterality Date APPENDECTOMY CV IR INTERVENTIONAL RADIOLOGY Right 09/10/2024 Procedure: VR Chest Tube Right; Surgeon: Deanna Valdes DO; Location: IR LAB; Service: Interventional Radiology; Laterality: Right; History reviewed. No pertinent family history. Social History [1] Travel History: None Animal Contact: None Medications: I have reviewed the patient's medications. Scheduled Meds: cefTRIAXone (ROCEPHIN) IVPB 2,000 mg Intravenous Q24H enoxaparin (LOVENOX) injection 40 mg Subcutaneous Daily lidocaine 1 patch Transdermal Daily metroNIDAZOLE 500 mg Intravenous Q8H nicotine 1 patch Transdermal Daily polyethylene glycol 17 g Oral Daily senna-docusate 1 tablet Oral BID sodium chloride (PF) 5 mL Intravenous Q8H [facility] Allergy Information: I have reviewed the patient's allergies. Patient has no known allergies. Review of Systems: Review of Systems Constitutional: Positive for fatigue. Negative for chills and fever. Respiratory: Positive for cough. Negative for shortness of breath and wheezing. Cardiovascular: Positive for chest pain. Negative for palpitations and leg swelling. Gastrointestinal: Negative for abdominal distention, abdominal pain, constipation, diarrhea, nausea and vomiting. Endocrine: Negative for polydipsia, polyphagia and polyuria. Genitourinary: Negative for dysuria, flank pain, frequency and hematuria. Musculoskeletal: Negative for joint swelling, neck pain and neck stiffness. Skin: Negative for color change, pallor and rash. Neurological: Negative for dizziness, weakness, numbness and headaches. Psychiatric/Behavioral: Negative for confusion. Labs: Lab Results Component Value Date WBC 12.08 (H) 09/14/2024 HGB 13.0 09/14/2024 HCT 40.2 09/14/2024 MCV 90.3 09/14/2024 PLT 481 (H) 09/14/2024 No results found for: HGBA1C No results found for: SEDRATE No results found for: CRP Radiology: CT Chest Thorax With Contrast Final Result 1. Right chest tube unchanged in position. Small to moderate residual right pleural effusion with pleural thickening in the inferolateral right chest with small loculated components posteriorly and along the right major fissure. Small pneumothorax component is unchanged. 2. Tusq-uc-mxqbmvjh infiltrative changes and atelectasis in the right lower lobe and right middle lobe, unchanged. Ongoing pneumonia/inflammatory airways disease in this area is a consideration. 3. Minimal atelectasis in the left lower lobe. [employer] Workstation ID: [id number] CT Chest Without Contrast Final Result 1. Right chest tube tip positioned in the medial right cardiophrenic region with significant improvement in the right-sided hydropneumothorax seen on the 09/09/2024 CT. Small to moderate amount of residual pleural fluid and pleural thickening, including small loculated components posteriorly and along the right major fissure. Trace right pneumothorax component also significantly improved. 2. Moderate residual infiltrative changes in the mid to lower right lung, also improved, that could be an area of ongoing pneumonia. Minimal atelectasis in the left lower lobe. [employer] Workstation ID: [id number] XR Chest 1 View Final Result Stable right basilar chest tube position. Improved aeration of the right lung base with probable mild residual atelectasis and pleural effusion. No significant pneumothorax identified. ST/tde Workstation ID: [id number] XR Chest 1 View Final Result Stable pleural catheter with the distal tip along the medial aspect of the right lower chest. There is a persistent however smaller, small pneumothorax along the lateral margin of the right lower chest measuring 1.1 cm in transverse dimension. There is persistent patchy and dense consolidation within the right lower chest suggesting atelectasis and/or infiltrate. There is a small amount of pleural fluid along the lateral margin of the right mid chest. Workstation ID: [id number] XR Chest 1 View Final Result Chest tube which appears to be in the right lower chest. Stable heart and mediastinum. Slightly improved right basilar opacity. Slightly increased or new mild left basilar opacity. Right lateral pneumothorax is decreased, now with 1.5 cm pleural separation previously 3 cm. Continued fluid at the right costophrenic sulcus. Workstation ID: [id number] XR Chest 1 View Final Result 1. New larger-caliber drain overlies the right hemidiaphragm. Persistent moderate-sized inferolateral right hydropneumothorax, not significantly changed. 2. Infiltrative changes/consolidation in the right base again noted, concerning for an area of ongoing pneumonia. 3. Mild dependent atelectasis in the left base, unchanged. No new process identified. DSS/ads Workstation ID: [id number] VR Chest Tube Right Final Result Image guided right chest tube placement (24 Tunisian Thal quick) PROCEDURE: INTRAVENOUS MODERATE SEDATION AND MONITORING. IMAGE GUIDED PLACEMENT OF RIGHT CHEST TUBE PHYSICIAN: Deanna Valdes D.O. [facility], [place] [address] (O) [phone] (F) [phone] ANESTHESIA: Intravenous moderate sedation with continuous physiological monitoring was performed utilizing Versed and Fentanyl with personal physician and RN supervision starting at 915 and ending at 935. Continuous noninvasive cardiopulmonary and oxygen saturation monitoring demonstrated stable vital signs throughout the procedure with no evidence of complication. COMPARISON: CT chest 09/09/2024, chest x-ray same day COMPLICATIONS: None. ESTIMATED BLOOD LOSS: Trace. CONTRAST AGENT: NONE RADIATION DOSE: 1.97 mGy FLUOROSCOPY TIME: 0.1 minutes CLINICAL INFORMATION: Loculated right pleural effusion PROCEDURE: The risks, benefits and alternatives were explained to the patient/family/HPOA. Informed consent was obtained. Dose reduction techniques were achieved by using automated exposure control and/or adjustment of mA and/or kV according to patient size and/or use of iterative reconstruction technique. Image guided right chest tube placement Ultrasound showed the complex collection surrounding the right lung posteriorly with locules of air and internal echogenicity. No significant change from the comparison imaging, given technique differences. Skin and subcutaneous tissues were anesthetized at the intended access site. A small skin alexandra was made at this location for needle entry. Then under ultrasound guidance, 18 gauge Chiba was advanced directly into the right pleural effusion was seen to be in good position and light red tinged fluid debris was aspirated. Ultrasound images demonstrate good position of the needle tip. Then under CT guidance, a superstiff Amplatz wire was coiled within the collection and serial dilatation was performed over the wire to advance a 24 Tunisian without quick catheter into the abscess cavity and confirmed to be in appropriate position on post placement fluoroscopic images. Catheter was sutured in place with 0 Prolene pursestring suture, sterile dressings were placed and the catheter was connected to a pleur-evac system. Workstation ID: [id number] CT Chest Without Contrast Final Result 1. There is a decrease [id number]-sg-jgjyfldb right-sided hydropneumothorax compared to 09/07/2024 but similar to recent x-ray 09/09/2024. Previous small bore right pleural drain has backed out of the pleural space along the right chest wall. 2. Bilateral pulmonary opacities suggesting atelectasis. Superimposed pneumonia is not excluded. 3. Prior granulomatous disease. [facility]/lab Workstation ID: [id number] XR Chest 1 View Final Result Right anj-hs-hnqva chest pigtail catheter in place. Possible underlying catheter retraction compared to 09/08/2024. Tip may be in the extrapleural space. Small right hydropneumothorax. Pleural separation at the lateral aspect of the right mid chest measures up to 9 mm. Results were called by Dr. Eric Rayo to Claude LEMA on 09/09/2024 at 0920. /f Workstation ID: [id number] XR Chest 1 View Final Result 1. Status post placement of a right pleural drain. 2. No pneumothorax. PRL/sjk Workstation ID: [id number] Physical Examination: Vital Signs: BP 112/76 Pulse 82 Temp 98.3 F (36.8 C) (Oral) Resp 17 Ht 5' 5 Wt 93 kg (205 lb 0.4 oz) LMP (LMP Unknown) Comment: preg test done and neg SpO2 95% BMI 34.12 kg/m Physical Exam Constitutional: Appearance: She is well-developed. She is obese. HENT: Head: Normocephalic. Mouth/Throat: Comments: Patient with dental caries especially at the lower molar. Eyes: General: Right eye: No discharge. Left eye: No discharge. Cardiovascular: Rate and Rhythm: Normal rate and regular rhythm. Pulmonary: Effort: No respiratory distress. Breath sounds: Rales present. No wheezing. Comments: Decreased air entry right lung noted. Patient is on the chest tube insertion. Chest: Chest wall: No tenderness. Abdominal: General: There is no distension. Tenderness: There is no abdominal tenderness. There is no rebound. Comments: obese. Musculoskeletal: General: No tenderness. Cervical back: Normal range of motion and neck supple. Right lower leg: No edema. Left lower leg: No edema. Skin: General: Skin is warm. Coloration: Skin is not pale. Findings: No rash. Neurological: Mental Status: She is alert and oriented to person, place, and time. Psychiatric: Behavior: Behavior normal. Thought Content: Thought content normal. Assessment and Plan: Patient with 1. Right-sided chest empyema, 2. Pneumonia, 3. Loculated pleural fluid, 4. Leukocytosis, 5. Right-sided chest pain Plan. Continue patient on current therapy Patient on IV ceftriaxone Patient on IV metronidazole Patient status post chest tube insertion. I reviewed blood cultures with no growth Reviewed pleural body fluid with no growth Reviewed pleural fluid cell analysis, with RBC of 13,000, WBC of 42,000, neutrophil 91%. To see if we can get a sputum culture if possible. ESR, C-reactive protein. HIV screening Seems that leukocytosis is improving. Get urine for strep antigen and Legionella I reviewed previous CT scan, and CT scan of today, with improving hydropneumothorax, and also, with right-sided chest tube in place, and small to moderate amount of residual pleural fluid and pleural thickening, with small loculated component of pleural fluid. Follow-up repeat CT scans. Patient quitting vaping, Get Panorex, patient should also follow-up with her dentist. Will continue to follow with you. I discussed with the cargo router Dr. Johnson management plan. I discussed with the mom at the bedside on management plan. Problem List Items Addressed This Visit Respiratory * (Principal) Parapneumonic effusion - Primary Relevant Medications hydrOXYzine (ATARAX) tablet 25 mg I have taken time to review patient's information and having discussions, including discussion on antibiotics management, its side effects, benefits and risk., I appreciate seeing your patient, will continue to follow with you, and adjust with more information. Medical decision making.High. Drug Rx requiring intensive monitoring for toxicity and side effects; Extensive discussion regarding a diagnosis and multiple treatment options. This note is created with the assistance of a speech-recognition program. While intending to generate a document that actually reflects the content of the visit, the document can still have some errors including those of syntax and sound a- like substitutions which may escape proofreading. In such instances, actual meaning can be extrapolated by contextual derivation. [1] Social History Socioeconomic History Marital status: Single Tobacco Use Smoking status: Every Day Types: Cigarettes Smokeless tobacco: Never Vaping Use Vaping status: Every Day Substances: Nicotine, THC, Flavoring Devices: Disposable Substance and Sexual Activity Alcohol use: Never Drug use: Never Social Drivers of Health Food Insecurity: No Food Insecurity (09/07/2024) Hunger Vital Sign Worried About Running Out of Food in the Last Year: Never true Ran Out of Food in the Last Year: Never true Transportation Needs: No Transportation Needs (09/07/2024) PRAPARE - Transportation Lack of Transportation (Medical): No Lack of Transportation (Non-Medical): No Housing Stability: Low Risk (09/07/2024) Housing Stability Vital Sign Unable to Pay for Housing in the Last Year: No Number of Times Moved in the Last Year: 0 Homeless in the Last Year: No [employer] Work Phone: 09-14-2024 Consult note Formatting of th is note is different from the original. Patient Name: Gricel Patel MR #: [id number] : 1985 Physicians: No, Physician (Family); Randy Garber MD (Referring) Chief complaint: Gricel Patel is a 39 y.o. female presented with right-sided chest pain not improving. History: I have reviewed the patient's past medical history, past surgical history, family history, social history. Today patient evaluated with history of appendectomy in the past. Who had presented about 7 days ago with worsening history of right-sided chest pain, and some small cough. She did not have fever or chills, mom who was at bedside states that patient was having a lot of night sweats. She did not have any history of travel and no sick contact. Patient remembered that in February she had some flulike symptoms, and the dad also had similar symptoms. She did not have any history of pets or any history of vomiting. She was found on admission with Tmax of 98.9. Patient states that she vapes, but no smoking.. Patient had initially presented at [facility], was found with some Nonspecific right pleural fluid and was transferred to [facility] for continuation of treatment. She was thought of having empyema, and has since been followed by the cargo router, was status post percutaneous chest tube insertion by the interventional radiologist at the right chest.She had pleural fluid analysis that showed an RBC of 13,000, WBC of 42,000 and neutrophil of 91%. LDH was more than 2000 MRSA swab was negative. And patient also was found with leukocytosis WBC of 19,000 since on admission. Blood cultures have shown no growth including pleural fluid culture with no growth. Patient had a repeat CT scan that had shown right-sided chest tube in place, with significant improvement of hydropneumothorax in the right side small to moderate amount of residual pleural fluid and pleural thickening with small loculated fluid noted, moderate residual infiltrate noted. Patient is currently being evaluated for right-sided empyema, pneumonia, with loculated pleural fluid, leukocytosis, right-sided chest pain, and also for antibiotics management.. History reviewed. No pertinent past medical history. Past Surgical History: Procedure Laterality Date APPENDECTOMY CV IR INTERVENTIONAL RADIOLOGY Right 09/10/2024 Procedure: VR Chest Tube Right; Surgeon: Deanna Valdes DO; Location: IR LAB; Service: Interventional Radiology; Laterality: Right; History reviewed. No pertinent family history. Social History [1] Travel History: None Animal Contact: None Medications: I have reviewed the patient's medications. Scheduled Meds: cefTRIAXone (ROCEPHIN) IVPB 2,000 mg Intravenous Q24H enoxaparin (LOVENOX) injection 40 mg Subcutaneous Daily lidocaine 1 patch Transdermal Daily metroNIDAZOLE 500 mg Intravenous Q8H nicotine 1 patch Transdermal Daily polyethylene glycol 17 g Oral Daily senna-docusate 1 tablet Oral BID sodium chloride (PF) 5 mL Intravenous Q8H [facility] Allergy Information: I have reviewed the patient's allergies. Patient has no known allergies. Review of Systems: Review of Systems Constitutional: Positive for fatigue. Negative for chills and fever. Respiratory: Positive for cough. Negative for shortness of breath and wheezing. Cardiovascular: Positive for chest pain. Negative for palpitations and leg swelling. Gastrointestinal: Negative for abdominal distention, abdominal pain, constipation, diarrhea, nausea and vomiting. Endocrine: Negative for polydipsia, polyphagia and polyuria. Genitourinary: Negative for dysuria, flank pain, frequency and hematuria. Musculoskeletal: Negative for joint swelling, neck pain and neck stiffness. Skin: Negative for color change, pallor and rash. Neurological: Negative for dizziness, weakness, numbness and headaches. Psychiatric/Behavioral: Negative for confusion. Labs: Lab Results Component Value Date WBC 12.08 (H) 09/14/2024 HGB 13.0 09/14/2024 HCT 40.2 09/14/2024 MCV 90.3 09/14/2024 PLT 481 (H) 09/14/2024 No results found for: HGBA1C No results found for: SEDRATE No results found for: CRP Radiology: CT Chest Thorax With Contrast Final Result 1. Right chest tube unchanged in position. Small to moderate residual right pleural effusion with pleural thickening in the inferolateral right chest with small loculated components posteriorly and along the right major fissure. Small pneumothorax component is unchanged. 2. Acxj-cz-hfxlurzn infiltrative changes and atelectasis in the right lower lobe and right middle lobe, unchanged. Ongoing pneumonia/inflammatory airways disease in this area is a consideration. 3. Minimal atelectasis in the left lower lobe. [facility]/[employer] Workstation ID: [id number] CT Chest Without Contrast Final Result 1. Right chest tube tip positioned in the medial right cardiophrenic region with significant improvement in the right-sided hydropneumothorax seen on the 09/09/2024 CT. Small to moderate amount of residual pleural fluid and pleural thickening, including small loculated components posteriorly and along the right major fissure. Trace right pneumothorax component also significantly improved. 2. Moderate residual infiltrative changes in the mid to lower right lung, also improved, that could be an area of ongoing pneumonia. Minimal atelectasis in the left lower lobe. DSS/rf Workstation ID: [id number] XR Chest 1 View Final Result Stable right basilar chest tube position. Improved aeration of the right lung base with probable mild residual atelectasis and pleural effusion. No significant pneumothorax identified. ST/tde Workstation ID: [id number] XR Chest 1 View Final Result Stable pleural catheter with the distal tip along the medial aspect of the right lower chest. There is a persistent however smaller, small pneumothorax along the lateral margin of the right lower chest measuring 1.1 cm in transverse dimension. There is persistent patchy and dense consolidation within the right lower chest suggesting atelectasis and/or infiltrate. There is a small amount of pleural fluid along the lateral margin of the right mid chest. Workstation ID: [id number] XR Chest 1 View Final Result Chest tube which appears to be in the right lower chest. Stable heart and mediastinum. Slightly improved right basilar opacity. Slightly increased or new mild left basilar opacity. Right lateral pneumothorax is decreased, now with 1.5 cm pleural separation previously 3 cm. Continued fluid at the right costophrenic sulcus. Workstation ID: [id number] XR Chest 1 View Final Result 1. New larger-caliber drain overlies the right hemidiaphragm. Persistent moderate-sized inferolateral right hydropneumothorax, not significantly changed. 2. Infiltrative changes/consolidation in the right base again noted, concerning for an area of ongoing pneumonia. 3. Mild dependent atelectasis in the left base, unchanged. No new process identified. DSS/ads Workstation ID: [id number] VR Chest Tube Right Final Result Image guided right chest tube placement (24 Tunisian Thal quick) PROCEDURE: INTRAVENOUS MODERATE SEDATION AND MONITORING. IMAGE GUIDED PLACEMENT OF RIGHT CHEST TUBE PHYSICIAN: Deanna Valdes D.O. [facility] [address] [place] [address] (O) [phone] (F) [phone] ANESTHESIA: Intravenous moderate sedation with continuous physiological monitoring was performed utilizing Versed and Fentanyl with personal physician and RN supervision starting at 915 and ending at 935. Continuous noninvasive cardiopulmonary and oxygen saturation monitoring demonstrated stable vital signs throughout the procedure with no evidence of complication. COMPARISON: CT chest 09/09/2024, chest x-ray same day COMPLICATIONS: None. ESTIMATED BLOOD LOSS: Trace. CONTRAST AGENT: NONE RADIATION DOSE: 1.97 mGy FLUOROSCOPY TIME: 0.1 minutes CLINICAL INFORMATION: Loculated right pleural effusion PROCEDURE: The risks, benefits and alternatives were explained to the patient/family/HPOA. Informed consent was obtained. Dose reduction techniques were achieved by using automated exposure control and/or adjustment of mA and/or kV according to patient size and/or use of iterative reconstruction technique. Image guided right chest tube placement Ultrasound showed the complex collection surrounding the right lung posteriorly with locules of air and internal echogenicity. No significant change from the comparison imaging, given technique differences. Skin and subcutaneous tissues were anesthetized at the intended access site. A small skin alexandra was made at this location for needle entry. Then under ultrasound guidance, 18 gauge Chiba was advanced directly into the right pleural effusion was seen to be in good position and light red tinged fluid debris was aspirated. Ultrasound images demonstrate good position of the needle tip. Then under CT guidance, a superstiff Amplatz wire was coiled within the collection and serial dilatation was performed over the wire to advance a 24 Tunisian without quick catheter into the abscess cavity and confirmed to be in appropriate position on post placement fluoroscopic images. Catheter was sutured in place with 0 Prolene pursestring suture, sterile dressings were placed and the catheter was connected to a pleur-evac system. Workstation ID: [id number] CT Chest Without Contrast Final Result 1. There is a decrease uvoyr-br-vafszfga right-sided hydropneumothorax compared to 09/07/2024 but similar to recent x-ray 09/09/2024. Previous small bore right pleural drain has backed out of the pleural space along the right chest wall. 2. Bilateral pulmonary opacities suggesting atelectasis. Superimposed pneumonia is not excluded. 3. Prior granulomatous disease. [facility]/lab Workstation ID: [id number] XR Chest 1 View Final Result Right aqt-zg-zsdbl chest pigtail catheter in place. Possible underlying catheter retraction compared to 09/08/2024. Tip may be in the extrapleural space. Small right hydropneumothorax. Pleural separation at the lateral aspect of the right mid chest measures up to 9 mm. Results were called by Dr. Eric Rayo to Claude LEMA on 09/09/2024 at 0920. /[facility] Workstation ID: [id number] XR Chest 1 View Final Result 1. Status post placement of a right pleural drain. 2. No pneumothorax. PRL/sjk Workstation ID: [id number] Physical Examination: Vital Signs: BP 112/76 Pulse 82 Temp 98.3 F (36.8 C) (Oral) Resp 17 Ht 5' 5 Wt 93 kg (205 lb 0.4 oz) LMP (LMP Unknown) Comment: preg test done and neg SpO2 95% BMI 34.12 kg/m Physical Exam Constitutional: Appearance: She is well-developed. She is obese. HENT: Head: Normocephalic. Mouth/Throat: Comments: Patient with dental caries especially at the lower molar. Eyes: General: Right eye: No discharge. Left eye: No discharge. Cardiovascular: Rate and Rhythm: Normal rate and regular rhythm. Pulmonary: Effort: No respiratory distress. Breath sounds: Rales present. No wheezing. Comments: Decreased air entry right lung noted. Patient is on the chest tube insertion. Chest: Chest wall: No tenderness. Abdominal: General: There is no distension. Tenderness: There is no abdominal tenderness. There is no rebound. Comments: obese. Musculoskeletal: General: No tenderness. Cervical back: Normal range of motion and neck supple. Right lower leg: No edema. Left lower leg: No edema. Skin: General: Skin is warm. Coloration: Skin is not pale. Findings: No rash. Neurological: Mental Status: She is alert and oriented to person, place, and time. Psychiatric: Behavior: Behavior normal. Thought Content: Thought content normal. Assessment and Plan: Patient with 1. Right-sided chest empyema, 2. Pneumonia, 3. Loculated pleural fluid, 4. Leukocytosis, 5. Right-sided chest pain Plan. Continue patient on current therapy Patient on IV ceftriaxone Patient on IV metronidazole Patient status post chest tube insertion. I reviewed blood cultures with no growth Reviewed pleural body fluid with no growth Reviewed pleural fluid cell analysis, with RBC of 13,000, WBC of 42,000, neutrophil 91%. To see if we can get a sputum culture if possible. ESR, C-reactive protein. HIV screening Seems that leukocytosis is improving. Get urine for strep antigen and Legionella I reviewed previous CT scan, and CT scan of today, with improving hydropneumothorax, and also, with right-sided chest tube in place, and small to moderate amount of residual pleural fluid and pleural thickening, with small loculated component of pleural fluid. Follow-up repeat CT scans. Patient quitting vaping, Get Panorex, patient should also follow-up with her dentist. Will continue to follow with you. I discussed with the cargo router Dr. Johnson management plan. I discussed with the mom at the bedside on management plan. Problem List Items Addressed This Visit Respiratory * (Principal) Parapneumonic effusion - Primary Relevant Medications hydrOXYzine (ATARAX) tablet 25 mg I have taken time to review patient's information and having discussions, including discussion on antibiotics management, its side effects, benefits and risk., I appreciate seeing your patient, will continue to follow with you, and adjust with more information. Medical decision making.High. Drug Rx requiring intensive monitoring for toxicity and side effects; Extensive discussion regarding a diagnosis and multiple treatment options. This note is created with the assistance of a speech-recognition program. While intending to generate a document that actually reflects the content of the visit, the document can still have some errors including those of syntax and sound a- like substitutions which may escape proofreading. In such instances, actual meaning can be extrapolated by contextual derivation. [1] Social History Socioeconomic History Marital status: Single Tobacco Use Smoking status: Every Day Types: Cigarettes Smokeless tobacco: Never Vaping Use Vaping status: Every Day Substances: Nicotine, THC, Flavoring Devices: Disposable Substance and Sexual Activity Alcohol use: Never Drug use: Never Social Drivers of Health Food Insecurity: No Food Insecurity (09/07/2024) Hunger Vital Sign Worried About Running Out of Food in the Last Year: Never true Ran Out of Food in the Last Year: Never true Transportation Needs: No Transportation Needs (09/07/2024) PRAPARE - Transportation Lack of Transportation (Medical): No Lack of Transportation (Non-Medical): No Housing Stability: Low Risk (09/07/2024) Housing Stability Vital Sign Unable to Pay for Housing in the Last Year: No Number of Times Moved in the Last Year: 0 Homeless in the Last Year: No Associated Order(s): IP CONSULT TO CARE MANAGEMENT Care Management Consult Note Date: 09/09/2024 Time: 3:02 PM Patient Name: Gricel Patel Date of : 1985 Reason for Consult: Discharge Plan: Plan A: Home Plan B: Home Health Care Services Discharging Transportation Plan: Discharge Plan Status: Spoke with patient at bedside, explained Care Management role. Patient agreed to interview. Patient from home, alone. Normally independent, drives, works and manages her own medications. Denies food/financial insecurity. Patient denies any in home services or medical equipment needs. Patient has no PCP, she is from [place] and presents with FMLA paper work. Explained she would need to be seen by a PCP to have paper work filled out. Mother at bedside states she will call her PCP and see if they can accept patient. Will follow up with patient tomorrow to see what she found out. Caro Kruger CNP will address FMLA paper work with patient tomorrow to see if she is able to assist with it as well. Mother to transport patient home at discharge. CM will continue to follow patient for discharge needs. Assessment and Background Information: Living Arrangements: Alone Caregiver Identified: No Support Systems: Parent Assistance Needed: none Type of Residence: Private residence Prior to Admission Home Care Services: No Type of Current Home Care Services: Other (Comment) Does the patient need discharge transport arranged?: No Holistic Assessment Medication adherence problem:: No History of falls in last 6 months:: No Family aware of the patient's advance care planning wishes:: Yes Do you have any cultural/spiritual connections or beliefs that would impact how we deliver your care?: No Chronic pain:: No Associated Order(s): IP CONSULT TO INTERVENTIONAL RADIOLOGY Vascular & Interventional Radiology Provided By [facility] (Diagnostic Radiology, Interventional and Neurointerventional Radiology and Vascular Medicine) Interventional Radiology Department @ : [phone] 17/10 VIR physician contact: [phone]) Weekday VIR ARPITA contact @ [facility]: [phone] [facility]: [email or web address] [facility] The consult was reviewed. The patient's chart was reviewed. The patient's H&P was reviewed. Gricel Patel is a 38 y.o. 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 Sepsis, POA Right lung loculated effusion Right lower lobe pneumonia Severe pleuritic pain Atelectasis Leukocytosis WBC-19.96 CT CAP reviewed-modest rind of nonspecific right pleural fluid, internal complexity noted, seems loculated. Associated atelectasis of right middle and lower lobe. Sputum Cx-p Blood Cx-p Body fluid Cx- no growth Etiology unclear but probably dental, she needs couple teeth extracted. Ceftriaxone and Flagyl for anaerobic coverage. No association with healthcare institution, no need for MRSA coverage at this time. IV Toradol and steroids for pleuritic pain. Continue IV Hydration Pulmonary consult. Discussed with Dr. Schofield. IR consult S/p Chest tube placement 09/08/24 Pain management CM Incentive Spirometry Nicotine dependence Smokes a pack per day and vapes. Patient does not want any patch at this time. Smoking cessation Obesity -BMI 34.12 CT chest personally reviewed with the appearance of chest tube outside of the pleural space and PTX ex vacuo. Removed chest tube at end expiration, covered site with vaseline gauze, sterile 4X4 and secured with silk tape. Discussed with patient and IR about requiring new chest tube. IR consult placed. VIR consulted for a new chest tube placement (please see above)- I will find out if she has been NPO. INR ordered. Per pulmonary- it needs to be done today. The patient will be scheduled for the requested chest tube placement procedure. Procedure date and time TBD by the VIR control desk @ [phone], once pertinent labs and anticoagulant medications have been reviewed, per guidelines below. Please refer to the procedure note section for preliminary procedure details as well as the imaging section for the final procedure report. Pertinent image (if applicable): Pertinent labs are as follows: No results found for: PTT Lab Results Component Value Date PLT 393 09/08/2024 Lab Results Component Value Date BUN 11 09/08/2024 Lab Results Component Value Date CREATININE 0.68 09/08/2024 Patient's allergies are as follows: Allergies as of 09/07/2024 (No Known Allergies) VIR Yaa-procedure lab value guideline (pending P&T review 03/2020): Table 1. LOW Bleeding Risk Laboratory Guidelines Low Bleeding Risk Procedures Target Laboratory Values3 Bone Marrow Biopsy [Platelet Count - N/A] Catheter exchanges (gastrostomy, biliary, nephrostomy, abscess, including gastrostomy/gastrojejunostomy conversions) CVC tunneled >/= 8 Fr* Diagnostic venography and select venous interventions: pelvis and extremities Dialysis shunt interventions IVC filter placement and removal Non-tunneled chest tube placement for pleural effusion Non-tunneled venous access and removal (including PICC placement) and Tunneled venous access </= 7 Fr Paracentesis Peripheral nerve blocks, joint, and musculoskeletal injections Sacroiliac joint injection and sacral lateral branch blocks Superficial abscess drainage or biopsy (palpable lesion, lymph node, soft tissue, breast, thyroid) Thoracentesis Trans jugular liver biopsy Trigger point injections including piriformis Tunneled drainage catheter placement* PT/INR < 2.0 - 3.0 Platelets > 20,000/mcL (Consider transfusing platelets if <20,000/mcL) If patient with Chronic Liver Disease (based on expert opinion): PT/INR < 3.0 (Consider Vitamin K infusion if INR >3.0) Platelets > 20,000/mcL (Transfuse platelets if <20,000/mcL in patients with a large spleen) Fibrinogen > 100mg/dL (Consider cryoprecipitate if <100mg/dL) *If on Direct Oral Anticoagulant (DOAC), follow HIGH Bleeding Risk recommendations in Table 2 and Table 3 Table 2. HIGH Bleeding Risk Laboratory Guidelines: HIGH Bleeding Risk Procedures Target Laboratory Values3 Ablations: solid organs, bone, soft tissue, lung Arterial diagnostic interventions: aortic, pelvic, mesenteric, peripheral Biliary interventions (including cholecystostomy tube placement) Catheter directed thrombolysis/thrombectomy- DVT, PE, portal vein (Highly case dependent) Deep abscess drainage (e.g., lung parenchyma, abdominal, pelvic, retroperitoneal) Deep non organ biopsies (e.g., spine, soft tissue in intra-abdominal, retroperitoneal, pelvic compartments) Gastrostomy/gastrojejunostomy placement IVC filter removal complex Lumbar puncture Lymphangiography Portal vein interventions Solid organ biopsies Spine procedures with risk of spinal or epidural hematoma (e.g., kyphoplasty, vertebroplasty, epidural injections, facet blocks) Trans jugular intrahepatic portosystemic shunt Port placement/removal (Buried) Urinary tract interventions (including nephrostomy tube placement, ureteral dilation, stone removal) Venous interventions: intrathoracic and LIFE TRAINER intervention PT/INR < 1.5 - 1.8 (if arterial access, femoral: INR < 1.8, radial: INR < 2.2) Platelets > 50,000/mcL (Consider transfusing platelets if <50,000/mcL) If patient with Chronic Liver Disease (based on expert opinion): PT/INR < 2.5 (Give Vitamin K 10mg infusion if INR >2.5) Platelets > 30,000/mcL (Transfuse platelets if <30,000/mcL in patients with a large spleen) Fibrinogen > 100mg/dL (Consider cryoprecipitate if <100mg/dL) VIR Yaa-procedure anticoagulant/antiplatelet guideline (pending P&T review 03/2020): Medication LOW Bleeding Risk^ HIGH Bleeding Risk^ Reinitiation Abciximab (ReoPro ) Hold 24 hrs before procedure Hold 24 hrs before procedure Patient undergoing PCI or within immediate periprocedural period from cardiac intervention; use multidisciplinary, shared decision-making Apixaban (Eliquis ) Do not hold CrCl > 50mL/min: Hold 4 doses CrCl < 30-50mL/min: Hold 6 doses 24 hrs Aspirin OR Aspirin/Dipyridamole (Aggrenox ) Holding strategy for aspirin requires patient-specific approach; for high risk or complex cardiovascular cases, multidisciplinary, shared decision-making is suggested Do not hold Hold for 3-5 days (assumes multidisciplinary evaluation and agreement to interrupt therapy) Resume the day after procedure Argatroban (Acova ) Do not hold Hold 2-4 hrs: check aPTT 4-6 hrs Betrixaban (Bevyxxa ) Do not hold Hold for 3 doses 24 hrs Bivalirudin (Angiomax ) Do not hold Hold 2-4 hrs: check aPTT 4-6 hrs Cangrelor (Kengreal ) Defer procedure until therapy completed; if emergent, multidisciplinary discussion with Cardiology is recommended Defer procedure until therapy completed; if emergent, multidisciplinary discussion with Cardiology is recommended Patient undergoing PCI or within immediate periprocedural period from cardiac intervention; Use multidisciplinary, shared-decision making Cilostazol (Pletal ) Do not hold Do not hold N/A Clopidogrel (Plavix ) Do not hold Hold for 5 days before procedure 75mg Dose: 6 hrs after procedure Loading Dose (300-600mg): 24 hrs after procedure Dabigatran (Pradaxa ) Do not hold CrCl > 50mL/min: Hold 4 doses CrCl < 30-50mL/min: Hold 6-8 doses Consider checking thrombin time with impaired renal function 24 hrs Edoxaban (Savaysa ) Do not hold Hold for 2 doses 24 hrs Eptifibatide (Integrilin ) Hold 4-8 hrs before procedure Hold 4-8 hrs before procedure Patient undergoing PCI or within immediate periprocedural period from cardiac intervention; Use multidisciplinary, shared decision-making Fondaparinux (Arixtra ) Do not hold CrCl > 50mL/min: Hold 2-3 Days CrCl < 50mL/min: Hold 3-5 days 24 hrs LMWH: Enoxaparin (Lovenox ), Dalteparin (Fragmin ) Do not hold Check anti-Xa level if renal function impaired Prophylactic Enoxaparin: Hold 1 dose Therapeutic Enoxaparin: Hold 2 doses or 24 hrs Dalteparin: Hold 1 dose 12 hrs NSAIDS (short-, intermediate-, and long-acting) Do not hold No recommendations N/A Prasugrel (Effient ) Do not hold Hold for 7 days before procedure Resume the day after the procedure Rivaroxaban (Xarelto ) Do not hold CrCl > 50mL/min: Hold 2 doses CrCl 30-50mL/min: Hold 2 doses CrCl < 15-30mL/min: Hold 3 doses 24 hrs Ticagrelor (Brilinta ) Do not hold Hold for 5 days before procedure Resume the day after the procedure Tirofiban (Aggrastat ) Hold 4-8 hrs before procedure Hold 4-8 hrs before procedure Patient undergoing PCI or within immediate periprocedural period from cardiac intervention; Use multidisciplinary, shared decision-making Unfractionated Heparin Do not hold IV Heparin: Hold 4-6 hrs before procedure; check aPTT or anti-Xa level SubQ Heparin: Hold 6 hrs before procedure 6-8 hrs Warfarin (Coumadin ) Target INR < 3 Hold 5 days until INR < 1.8 Low Bleeding Risk: N/A or same day for bridged patients High Bleeding Risk: Resume day after procedure; Consider bridging after procedure for high thrombosis risk cases; Use multidisciplinary, shared-decision making to balance bleeding vs. thrombotic risks. Cosigned by Maikel Rodriguez MD at 09/09/2024 3:22 PM EDT Associated Order(s): IP CONSULT TO PULMONOLOGY PULMONOLOGY CONSULT 09/08/2024 Patient: Gricel Patel Date of : 1985 Site: [facility] Referring Provider: Refer to consult order in electronic medical record Provider: Chandu Mathew MD ASSESSMENT/PLAN: Gricel Patel 38 y.o. female with no active medical problems presented to the hospital with chest pain radiating to her back for the past 1-2 weeks. Associated with difficulty breathing over the past few days which is why she presented to the hospital. Denies having obvious fever or chills but has been having feeling of hot and cold. Reported having dental carries and says she needs to go to the dentist to her tooth extracted. Reports having a 2 week long respiratory infection around [place] time. She never seeked any medical care and never got any antibiotics. Says that her symptoms got better on its own. CT chest done on admission showed presence of right-sided loculated pleural effusion. Right-sided loculated Pleural Effusion - concern for empyema Right Lower lobe pnuemonia Sepsis Nicotine dependence, active smoker - Will plan for bedside chest tube placement. Will likely need tpA/dornase instillation through the chest tube - Will send for pleural fluid analysis and culture - Continue antibiotics. Check MRSA nares - Follow-up on blood cultures and sputum culture SUBJECTIVE: Chief Complaint/Reason for Visit: Pleuritic chest pain, shortness of breath History of Present Illness: Gricel Patel 38 y.o. female with no active medical problems presented to the hospital with chest pain radiating to her back for the past 1-2 weeks. Associated with difficulty breathing over the past few days which is why she presented to the hospital. Denies having obvious fever or chills but has been having feeling of hot and cold. Reported having dental carries and says she needs to go to the dentist to her tooth extracted. Reports having a 2 week long respiratory infection around [place] time. She never seeked any medical care and never got any antibiotics. Says that her symptoms got better on its own. CT chest done on admission showed presence of right-sided loculated pleural effusion. Interpretation of Testing: I personally reviewed the CT chest and agree with the interpretation(s). Review of Systems: GI:No abdominal pain.No abdominal distention :No dysuria All other systems reviewed and negative other than HPI History reviewed. No pertinent past medical history. Past Surgical History: Procedure Laterality Date APPENDECTOMY History reviewed. No pertinent family history. Tobacco Use History[1] Additional History Comments: None Allergies: Patient has no known allergies. Current HOSPITAL Medications: Current Hospital Medications[2] Current Medications[3] OBJECTIVE: Physical Examination: BP 136/85 Pulse 88 Temp 98.1 F (36.7 C) (Oral) Resp (!) 20 Ht 5' 5 Wt 93 kg (205 lb 0.4 oz) LMP (LMP Unknown) Comment: preg test done and neg SpO2 92% BMI 34.12 kg/m Temp: [97.3 F (36.3 C)-98.9 F (37.2 C)] 98.1 F (36.7 C) Heart Rate: [86-122] 88 Resp: [16-20] 20 BP: (98-136)/(70-113) 136/85 SpO2 Readings from Last 1 Encounters: 09/08/24 92% Intake/Output Summary (Last 24 hours) at 09/08/2024 0824 Last data filed at 09/08/2024 0533 Gross per 24 hour Intake 2115 ml Output -- Net 2115 ml Vital Signs Reviewed. Gen: Alert and oriented x 3, In no apparent distress Cardio: regular rate and rhythm, no murmur Resp: Decreased breath sounds in the right lower base, no respiratory distress Abd: soft, nontender MSK: Moves all four extremities spontaneously. Neuro: Grossly normal without focal findings Skin: no rashes, no jaundice Labs and Imaging: [x] Medications reviewed. [x] Labs reviewed. Pertinent findings noted: WBC 19.96 [x] Radiology reviewed. Pertinent findings noted: CT chest reviewed [] Pathology reviewed. Pertinent findings noted: Family Update/ Code Status: Full Laboratory and Additional Data Reviewed: Reviewed 09/08/24 8:24 AM: Laboratory, Radiology, and Medications [1] Social History Tobacco Use Smoking Status Every Day Types: Cigarettes Smokeless Tobacco Never [2] aluminum-magnesium hydroxide-simethicone (MAALOX PLUS) 200-200-20 mg/5 mL suspension 30 mL, 30 mL, Oral, Q4H PRN cefTRIAXone (ROCEPHIN) IVPB 2 g (premix), 2,000 mg, Intravenous, Q24H enoxaparin (LOVENOX) syringe 40 mg, 40 mg, Subcutaneous, Daily ketorolac (TORADOL) injection 15 mg, 15 mg, Intravenous, Q6H PRN metroNIDAZOLE (FLAGYL) IVPB 500 mg, 500 mg, Intravenous, Q8H naloxone (NARCAN) injection 0.1 mg, 0.1 mg, Intravenous, PRN AND Notify physician, , , Until Discontinued AND naloxone (NARCAN) injection 0.4 mg, 0.4 mg, Intravenous, PRN ondansetron (ZOFRAN-ODT) disintegrating tablet 4 mg, 4 mg, Oral, Q6H PRN OR ondansetron (ZOFRAN) injection 4 mg, 4 mg, Intravenous, Q6H PRN oxyCODONE (ROXICODONE) immediate release tablet 5-10 mg, 5-10 mg, Oral, Q4H PRN predniSONE (DELTASONE) tablet 40 mg, 40 mg, Oral, Daily with breakfast senna-docusate (SENNA-S) 8.6-50 mg per tablet 1 tablet, 1 tablet, Oral, BID Saline lock IV, , , Continuous AND sodium chloride (PF) (NS) flush 5 mL, 5 mL, Intravenous, PRN AND sodium chloride (PF) (NS) flush 5 mL, 5 mL, Intravenous, Q8H CAROLYNE AND sodium chloride 0.9% (NS), 0-150 mL/hr, Intravenous, PRN traZODone (DESYREL) tablet 50 mg, 50 mg, Oral, Nightly PRN [3] Current Facility-Administered Medications Medication Dose Route Frequency Provider Last Rate Last Admin aluminum-magnesium hydroxide-simethicone (MAALOX PLUS) 200-200-20 mg/5 mL suspension 30 mL 30 mL Oral Q4H PRN Kassandra Hinton MD cefTRIAXone (ROCEPHIN) IVPB 2 g (premix) 2,000 mg Intravenous Q24H Kassandra Hinton MD enoxaparin (LOVENOX) syringe 40 mg 40 mg Subcutaneous Daily Kassandra Hinton MD ketorolac (TORADOL) injection 15 mg 15 mg Intravenous Q6H PRN Kassandra Hinton MD 15 mg at 09/07/24 2144 metroNIDAZOLE (FLAGYL) IVPB 500 mg 500 mg Intravenous Q8H Kassandra Hinton MD Stopped at 09/08/24 0533 naloxone (NARCAN) injection 0.1 mg 0.1 mg Intravenous PRN Kassandra Hinton MD And naloxone (NARCAN) injection 0.4 mg 0.4 mg Intravenous PRN Kassandra Hinton MD ondansetron (ZOFRAN-ODT) disintegrating tablet 4 mg 4 mg Oral Q6H PRN Kassandra Hinton MD Or ondansetron (ZOFRAN) injection 4 mg 4 mg Intravenous Q6H PRN Kassandra Hinton MD oxyCODONE (ROXICODONE) immediate release tablet 5-10 mg 5-10 mg Oral Q4H PRN Kassandra Hinton MD 10 mg at 09/08/24 0620 predniSONE (DELTASONE) tablet 40 mg 40 mg Oral Daily with breakfast Kassandra Hinton MD 40 mg at 09/07/24 1813 senna-docusate (SENNA-S) 8.6-50 mg per tablet 1 tablet 1 tablet Oral BID Kassandra Hinton MD sodium chloride (PF) (NS) flush 5 mL 5 mL Intravenous PRN Kassandra Hinton MD And sodium chloride (PF) (NS) flush 5 mL 5 mL Intravenous Q8H CAROLYNE Kassandra Hinton MD 5 mL at 09/08/24 0551 And sodium chloride 0.9% (NS) 0-150 mL/hr Intravenous PRN Kassandra Hinton MD traZODone (DESYREL) tablet 50 mg 50 mg Oral Nightly PRN Kassandra Hinton MD No current outpatient medications on file. documented in this encounter [facility] 09-14-2024 Note Pulmonary-Critical C are Progress Note: Patient Identification Gricel Patel, 1985 Code Status: Full Code Subjective: Seen at bedside Discussed CT Chest w/o results Plan for CT Chest w/ Improvement of fluid/empyema with response Objective: Physical Exam: Exam: Gen: nad, a*ox3 CV: rrr, no murmurs Resp: diminished R chest, mproved aeration Chest: R chest tube noted, with serous fluid in tubing - connected to suction Abd: soft, ntnd, +bs MSK: no swelling, no edema, no joint swelling noted Neuro: cn ii-xii grossly intact, strength grossly intact upper/lower/bilateral, follows commands Psych: cooperative, appropriate mood Assessment/Impression: This is a 39 y.o. female with no pmhx. Pulm/Crit is being consulted for R sided empyema, chest tube management. R Pleural Effusion, Moderate - Empyema, m/l Loculated S/p chest tube 09/08, replaced 09/10 Lytic therapy - 09/11, 09/12 R Chest Nodules/Mass/Abscess - seen on Non Contrast CT Sepsis, 2/2 to above, improved Acute Hypoxic Resp Failure 2/2 to above, improved RLL Pneumonia - CAP, Aspiration (dental?) R Sided Chest Pain / Pleuritic Chest Pain - improved Tobacco Abuse Disorder / Vape Abuse Obesity Class I Plan/Recommendations: - cxr reviewed, improvement - no ptx, R chest tube in position - will repeat lytic therapy today - monitor output - continue abx therapy - follow up cultures, cytology - encourage sitting up in chair, incentive spirometry - pain control - acetaminophen prn, lidocaine patch to site of chest tube - m/l repeat CT Chest w/o 09/14 Code Status: FULL Disposition: ct chest w/o reviewed, will obtain w/ contrast - possible Addendum -discussed CT Contrast imaging with patient and mom/family in room - will consult ID, spoke - will put chest to water seal if output has decreased Critical Care Time: 33 mins This Critical Care Time was spent on evaluating, managing and providing care to this critically ill patient. Includes time spent at bedside, reviewing laboratory and radiology findings, discussing plan of care and concerns with ICU staff and consulting services, and making critical decisions regarding patients' response to treatment. This time was exclusive of any procedures performed separately. Date of Service: 09/14/24 Bryan Johnson MD MPH Critical Care Medicine Pulmonary Medicine Vitals/IOs: Temp: [97.7 degrees F (36.5 degrees C)-98.6 degrees F (37 degrees C)] 98.3 degrees F (36.8 degrees C) Heart Rate: [79-115] 82 Resp: [16-18] 17 BP: (91-143)/(64-84) 112/76 Temp (24hrs), Av degrees F (36.7 degrees C), Min:97.7 degrees F (36.5 degrees C), Max:98.6 degrees F (37 degrees C) Intake/Output last 3 shifts: I/O last 3 completed shifts: In: 2245.2 [P.O.:1239; I.V.:206.2; IV Piggyback:800] Out: - Fluid Status: Intake/Output Summary (Last 24 hours) at 09/14/2024 1447 Last data filed at 09/14/2024 0900 Gross per 24 hour Intake 1888.99 ml Output -- Net 1888.99 ml Laboratory: Results from last 7 days Lab Units 09/14/24 0458 09/13/24 0540 09/12/24 0436 09/11/24 0536 09/10/24 0317 09/10/24 0313 09/09/24 1154 09/08/24 0601 WBC K/mcL 12.08* 13.06* 14.80* < > -- < > -- 19.96* HGB g/dL 13.0 13.6 12.4 < > -- < > -- 12.2 HCT % 40.2 40.5 38.0 < > -- < > -- 37.0 MCV fL 90.3 87.7 88.8 < > -- < > -- 90.0 PLT K/mcL 481* 482* 435* < > -- < > -- 393 BUN mg/dL 11 8 8 < > -- < > -- 11 SODIUM mmol/L 138 138 140 < > -- < > -- 137 POTASSIUM mmol/L 3.5 3.7 3.5 < > -- < > -- 3.6 CHLORIDE mmol/L 101 103 106 < > -- < > -- 104 MAGNESIUM mg/dL -- -- -- -- -- -- -- 1.8 INR -- -- -- -- 1.3* -- 1.4* -- < > = values in this interval not displayed. Imaging: Results for orders placed during the hospital encounter of 09/07/24 XR Chest 1 View Narrative EXAMINATION: XR CHEST PA/AP HISTORY: ORDERING SYSTEM PROVIDED HISTORY: Chest tube/empyema, TECHNOLOGIST PROVIDED HISTORY: Illness/Other Reason for exam: Chest tube/empyema Cancer History: u Surgery, RadiationHistory: u Encounter Type: Ongoing Additional signs and symptoms: Chest tube/empyema ORDERING SYSTEM PROVIDED DIAGNOSIS CODES: J18.9 Parapneumonic effusion J91.8 Parapneumonic effusion COMPARISON: Portable chest radiograph dated 09/11/2024. TECHNIQUE: AP upright portable chest radiograph performed. FINDINGS: Stable pleural catheter with the distal tip along the medial aspect of the right lower chest. There is a persistent however smaller, small pneumothorax along the lateral margin of the right lower chest measuring 1.1 cm in transverse dimension. There is persistent patchy and dense consolidation within the right lower chest suggesting atelectasis and/or infiltrate. There is a small amount of pleural fluid along the lateral margin of the right mid chest. There is no pulmonary vascular congestion. There is a small calc (more content not included)... [facility] 09-14-2024 Plan of care note Problem: Actual or potential alteration in health Goal: Absence of healthcare acquired conditions Outcome: Partially Met Goal: Knowledge of Interdisciplinary Plan of Care Outcome: Partially Met Goal: Knowledge of Enviroment Outcome: Partially Met Problem: Pain Goal: Reduced pain sensation Outcome: Partially Met Goal: Control of acute pain to acceptable level Outcome: Partially Met Goal: Able to cope with pain Outcome: Partially Met Goal: Able to achieve maximum level of physical functioning Outcome: Partially Met Goal: Able to achieve maximum level of psychosocial functioning Outcome: Partially Met Problem: Airway Clearance - Ineffective Goal: Effective airway clearance Outcome: Partially Met Problem: Airway Clearance - Ineffective Goal: Effective airway clearance Outcome: Partially Met Problem: Fluid Volume Deficit Goal: Absence of fluid volume deficit signs and symptoms Description: DETAIL: (eg, dry mucous membranes, urine volume less than 30 cc per hour, decreased skin turgor, impaired mental status) Outcome: Partially Met Problem: Gas Exchange - Impaired Goal: Adequate oxygenation Description: DETAIL: (eg, pulse oximetry higher than 95%, respiratory rate 12 to 16 breaths per minute, lips and nailbeds pink, normal mentation) Outcome: Partially Met Problem: Infection Goal: Absence of infection signs and symptoms Description: DETAIL: (eg, decreased blood pressure, increased body temperature, increased pulse rate, impaired mental status) Outcome: Partially Met Problem: Transition Readiness Goal: Able to safely transition to next level of care Outcome: Partially Met Goal: Knowledge of care transition plan Outcome: Partially Met Goal: Participation in care planning Outcome: Partially Met [facility] 09-14-2024 Note HMS PROGRESS NOTE Patient Name: Gricel Patel : 1985 Assessment and Plan Gricel Patel is a 38 y.o. 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 Sepsis, POA Right lung loculated effusion Right lower lobe pneumonia Severe pleuritic pain Atelectasis Leukocytosis WBC-19.96->15.97->14.80->13.06->[address] CAP reviewed-modest rind of nonspecific right pleural fluid, internal complexity noted, seems loculated. Associated atelectasis of right middle and lower lobe. Sputum Cx-p Blood Cx-no growth Body fluid Cx- no growth Etiology unclear but probably dental, she needs couple teeth extracted. Ceftriaxone and Flagyl for anaerobic coverage. No association with healthcare institution, no need for MRSA coverage at this time. S/p oral steroids IV Toradol S/p IV Hydration Pulmonary consult. Discussed with Dr. Schofield. IR consult S/p Chest tube placement 09/08/24, 09/10/24 Pain management CM Lytic therapy started 09/11,09/12, 09/13 Incentive Spirometry Chest x-ray 09/10/24-New larger-caliber drain overlies the right hemidiaphragm. Persistent moderate-sized inferolateral right hydropneumothorax, not significantly changed. CT chest -pending Nicotine dependence Smokes a pack per day and vapes. Patient does not want any patch at this time. Smoking cessation Obesity -BMI 34.12 Encourage diet and exercise Discharge Planning Patient Medically Ready for Discharge: no Patient requires continued hospitalization due to: Pain management, IV Antibiotics Expected Date of Discharge: 09/13/24 Expected Discharge Location: Home Quality Measures DVT Prophylaxis: lovenox Samuel Catheter: absent Code Status Full Code Subjective Patient resting in bed, still endorses pain at chest tube site, but feeling better. No reported fever or chills. Decreased drainage in CT Objective BP 112/76 Pulse 82 Temp 98.3 degrees F (36.8 degrees C) (Oral) Resp 18 Ht 5' 5 Wt 93 kg (205 lb 0.4 oz) LMP (LMP Unknown) Comment: preg test done and neg SpO2 95% BMI 34.12 kg/m Physical Examination General Appearance: alert; well appearing; in moderate acute distress HEENT: Head- normocephalic; Eyes- EOMI, sclera anicteric; Throat- mucous membranes moist Cardiovascular: regular rate and rhythm; normal S1, S2; no murmurs, rubs, clicks or gallops; peripheral edema absent Respiratory: lungs clear to auscultation; without wheezes, rales or rhonchi; on room air; pain with palpation to back Abdomen: soft, non-tender, non-distended Neurological: oriented x 3; normal speech; no focal findings or movement disorder noted Musculoskeletal: no significant deformity or tenderness to palpation Skin: normal coloration, Right chest tube intact with suction , no crepitus noted Psych: normal mood and affect AUTHENTICATED BY CARO KRUGER, ON 09/14/2024 10:03:18 [facility] 09-14-2024 Progress note Formatting of t his note might be different from the original. [employer] Bundle Lung Expansion Indications: Pulmonary atelectasis (suspected/documented) Levels: Level 1 Criteria : Stable respiratory status with Inspiratory Capacity (IC) greater than or equal to 30% Predicted and Fraction of Inspired Oxygen (FiO2) less than or equal to 40% Management : Therapeutic Treatment: Inspiratory Capacity greater than or equal to 30% and less than Interventions: Supervised Incentive Spirometry twice a day (BID) and every 2 hours PRN for hypoxia. Airway Clearance Indications: Not applicable Levels: Not applicable Moriah Watt RRT [facility] 09-14-2024 Plan of care note Problem: Actual or potential alteration in health Goal: Absence of healthcare acquired conditions Outcome: Partially Met Goal: Knowledge of Interdisciplinary Plan of Care Outcome: Partially Met Goal: Knowledge of Enviroment Outcome: Partially Met Problem: Pain Goal: Reduced pain sensation Outcome: Partially Met Goal: Control of acute pain to acceptable level Outcome: Partially Met Goal: Able to cope with pain Outcome: Partially Met Goal: Able to achieve maximum level of physical functioning Outcome: Partially Met Goal: Able to achieve maximum level of psychosocial functioning Outcome: Partially Met [facility] 2024 Plan of care note Problem: Actual or potential alteration in health Goal: Absence of healthcare acquired conditions Outcome: Partially Met Goal: Knowledge of Interdisciplinary Plan of Care Outcome: Partially Met Goal: Knowledge of Enviroment Outcome: Partially Met Problem: Pain Goal: Reduced pain sensation Outcome: Partially Met Goal: Control of acute pain to acceptable level Outcome: Partially Met Goal: Able to cope with pain Outcome: Partially Met Goal: Able to achieve maximum level of physical functioning Outcome: Partially Met Goal: Able to achieve maximum level of psychosocial functioning Outcome: Partially Met [facility] 2024 Note Pulmonary-Critical C are Progress Note: Patient Identification Gricel Patel, 1985 Code Status: Full Code Subjective: Seen at bedside Multiple family members present, as patients birthday Feeling better Seen during reopening of ct drain after lytic therapy Objective: Physical Exam: Exam: Gen: nad, a*ox3 CV: rrr, no murmurs Resp: diminished R chest, Chest: R chest tube noted, with serous fluid in tubing - connected to suction Abd: soft, ntnd, +bs MSK: no swelling, no edema, no joint swelling noted Neuro: cn ii-xii grossly intact, strength grossly intact upper/lower/bilateral, follows commands Psych: cooperative, appropriate mood Assessment/Impression: This is a 39 y.o. female with no pmhx. Pulm/Crit is being consulted for R sided empyema, chest tube management. R Pleural Effusion, Moderate - Empyema, m/l Loculated S/p chest tube 09/08, replaced 09/10 Lytic therapy - 09/11, 09/12 Sepsis, 2/2 to above, improved Acute Hypoxic Resp Failure 2/2 to above RLL Pneumonia - CAP, Aspiration (dental?) R Sided Chest Pain / Pleuritic Chest Pain - improved Tobacco Abuse Disorder / Vape Abuse Obesity Class I Plan/Recommendations: - cxr reviewed, improvement - no ptx, R chest tube in position - will repeat lytic therapy today - monitor output - continue abx therapy - follow up cultures, cytology - encourage sitting up in chair, incentive spirometry - pain control - acetaminophen prn, lidocaine patch to site of chest tube - m/l repeat CT Chest w/o 09/14 Code Status: FULL Disposition: repeat lytic therapy today, still with >100cc drainage, repeat cxr in am Critical Care Time: 29 mins This Critical Care Time was spent on evaluating, managing and providing care to this critically ill patient. Includes time spent at bedside, reviewing laboratory and radiology findings, discussing plan of care and concerns with ICU staff and consulting services, and making critical decisions regarding patients' response to treatment. This time was exclusive of any procedures performed separately. Date of Service: 09/13/24 Bryan Johnson MD MPH Critical Care Medicine Pulmonary Medicine Vitals/IOs: Temp: [97.9 degrees F (36.6 degrees C)-99.2 degrees F (37.3 degrees C)] 97.9 degrees F (36.6 degrees C) Heart Rate: [80-115] 115 Resp: [15-18] 16 BP: (117-155)/(77-101) 117/77 Temp (24hrs), Av.5 degrees F (36.9 degrees C), Min:97.9 degrees F (36.6 degrees C), Max:99.2 degrees F (37.3 degrees C) Intake/Output last 3 shifts: I/O last 3 completed shifts: In: 580 [P.O.:580] Out: 300 [Chest Tube:300] Fluid Status: Intake/Output Summary (Last 24 hours) at 2024 1743 Last data filed at 2024 1140 Gross per 24 hour Intake 609 ml Output -- Net 609 ml Laboratory: Results from last 7 days Lab Units 09/13/24 0540 09/12/24 0436 09/11/24 0536 09/10/24 0317 09/10/24 0313 09/09/24 1154 09/08/24 0601 WBC K/mcL 13.06* 14.80* 15.97* -- < > -- 19.96* HGB g/dL 13.6 12.4 12.2 -- < > -- 12.2 HCT % 40.5 38.0 37.3 -- < > -- 37.0 MCV fL 87.7 88.8 89.2 -- < > -- 90.0 PLT K/mcL 482* 435* 446* -- < > -- 393 BUN mg/dL 8 8 10 -- < > -- 11 SODIUM mmol/L 138 140 139 -- < > -- 137 POTASSIUM mmol/L 3.7 3.5 3.5 -- < > -- 3.6 CHLORIDE mmol/L 103 106 106 -- < > -- 104 MAGNESIUM mg/dL -- -- -- -- -- -- 1.8 INR -- -- -- 1.3* -- 1.4* -- < > = values in this interval not displayed. Imaging: Results for orders placed during the hospital encounter of 09/07/24 XR Chest 1 View Narrative EXAMINATION: XR CHEST PA/AP HISTORY: ORDERING SYSTEM PROVIDED HISTORY: Chest tube/empyema, TECHNOLOGIST PROVIDED HISTORY: Illness/Other Reason for exam: Chest tube/empyema Cancer History: u Surgery, RadiationHistory: u Encounter Type: Ongoing Additional signs and symptoms: Chest tube/empyema ORDERING SYSTEM PROVIDED DIAGNOSIS CODES: J18.9 Parapneumonic effusion J91.8 Parapneumonic effusion COMPARISON: Portable chest radiograph dated 09/11/2024. TECHNIQUE: AP upright portable chest radiograph performed. FINDINGS: Stable pleural catheter with the distal tip along the medial aspect of the right lower chest. There is a persistent however smaller, small pneumothorax along the lateral margin of the right lower chest measuring 1.1 cm in transverse dimension. There is persistent patchy and dense consolidation within the right lower chest suggesting atelectasis and/or infiltrate. There is a small amount of pleural fluid along the lateral margin of the right mid chest. There is no pulmonary vascular congestion. There is a small calcified granuloma laterally within the left upper chest. There is no acute osseous abnormality. There is slight scoliosis. There are mild degenerative changes along the spine. There is calcific tendinitis distal aspect of the right supraspinatus tendon. Impression (more content not included)... [facility] 2024 Progress note Formatting of t his note might be different from the original. AM CXR reviewed with significant improvement noted. Intrapleural lytic therapy administered to right chest tube. Chest tube clamped. Patient instructed to turn from side to side q15 minutes. Patient tolerated well. 1335: Chest tube unclamped. -20cm suction. Draining serosanguinous fluid. Plan for CT chest in AM to re-evaluate empyema. [facility] 2024 Note [facility] [place] PROGRESS NOTE Patient Name: Gricel Patel : 1985 Assessment and Plan Gricel Patel is a 38 y.o. 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 Sepsis, POA Right lung loculated effusion Right lower lobe pneumonia Severe pleuritic pain Atelectasis Leukocytosis WBC-19.96->15.97->14.80->13.06 CT CAP reviewed-modest rind of nonspecific right pleural fluid, internal complexity noted, seems loculated. Associated atelectasis of right middle and lower lobe. Sputum Cx-p Blood Cx-no growth Body fluid Cx- no growth Etiology unclear but probably dental, she needs couple teeth extracted. Ceftriaxone and Flagyl for anaerobic coverage. No association with healthcare institution, no need for MRSA coverage at this time. S/p oral steroids IV Toradol S/p IV Hydration Pulmonary consult. Discussed with Dr. Schofield. IR consult S/p Chest tube placement 09/08/24, 09/10/24 Pain management CM Lytic therapy started 09/11,09/12, 09/13 Incentive Spirometry Chest x-ray 09/10/24-New larger-caliber drain overlies the right hemidiaphragm. Persistent moderate-sized inferolateral right hydropneumothorax, not significantly changed. Nicotine dependence Smokes a pack per day and vapes. Patient does not want any patch at this time. Smoking cessation Obesity -BMI 34.12 Encourage diet and exercise Discharge Planning Patient Medically Ready for Discharge: no Patient requires continued hospitalization due to: Pain management, IV Antibiotics Expected Date of Discharge: 09/13/24 Expected Discharge Location: Home Quality Measures DVT Prophylaxis: lovenox Samuel Catheter: absent Code Status Full Code Subjective Patient resting in bed, still endorses pain at chest tube site, but feeling better. No reported fever or chills. Objective BP 127/89 Pulse 80 Temp 98.6 degrees F (37 degrees C) (Oral) Resp 16 Ht 5' 5 Wt 93 kg (205 lb 0.4 oz) LMP (LMP Unknown) Comment: preg test done and neg SpO2 94% BMI 34.12 kg/m Physical Examination General Appearance: alert; well appearing; in moderate acute distress HEENT: Head- normocephalic; Eyes- EOMI, sclera anicteric; Throat- mucous membranes moist Cardiovascular: regular rate and rhythm; normal S1, S2; no murmurs, rubs, clicks or gallops; peripheral edema absent Respiratory: lungs clear to auscultation; without wheezes, rales or rhonchi; on room air; pain with palpation to back Abdomen: soft, non-tender, non-distended Neurological: oriented x 3; normal speech; no focal findings or movement disorder noted Musculoskeletal: no significant deformity or tenderness to palpation Skin: normal coloration, Right chest tube intact with suction , no crepitus noted Psych: normal mood and affect AUTHENTICATED BY CARO KRUGER, ON 2024 12:05:10 [facility] 09-12-2024 Plan of care note Problem: Actual or potential alteration in health Goal: Absence of healthcare acquired conditions Outcome: Partially Met Goal: Knowledge of Interdisciplinary Plan of Care Outcome: Partially Met Goal: Knowledge of Enviroment Outcome: Partially Met Problem: Pain Goal: Reduced pain sensation Outcome: Partially Met Goal: Control of acute pain to acceptable level Outcome: Partially Met Goal: Able to cope with pain Outcome: Partially Met Goal: Able to achieve maximum level of physical functioning Outcome: Partially Met Goal: Able to achieve maximum level of psychosocial functioning Outcome: Partially Met [facility] 09-12-2024 Note Pulmonary-Critical C are Progress Note: Patient Identification Gricel Patel, 1985 Code Status: Full Code Subjective: Seen at bedside Pt brought up getting vape pens from [place] Does not recall severe cough gits, retching, vomiting episodes Objective: Physical Exam: Exam: Gen: nad, a*ox3 CV: rrr, no murmurs Resp: diminished R chest, Chest: R chest tube noted, with serous fluid in tubing - connected to suction Abd: soft, ntnd, +bs MSK: no swelling, no edema, no joint swelling noted Neuro: cn ii-xii grossly intact, strength grossly intact upper/lower/bilateral, follows commands Psych: cooperative, appropriate mood Assessment/Impression: This is a 38 y.o. female with no pmhx. Pulm/Crit is being consulted for R sided empyema, chest tube management. R Pleural Effusion, Moderate - Empyema, m/l Loculated S/p chest tube 09/08, replaced 09/10 Lytic therapy - 09/11, 09/12 Sepsis, 2/2 to above, improved Acute Hypoxic Resp Failure 2/2 to above RLL Pneumonia - CAP, Aspiration (dental?) R Sided Chest Pain / Pleuritic Chest Pain - improved Tobacco Abuse Disorder / Vape Abuse Obesity Class I Plan/Recommendations: - cxr reviewed, mild improvement - no ptx, R chest tube in position - will repeat lytic therapy today - monitor output - continue abx therapy - follow up cultures, cytology - encourage sitting up in chair, incentive spirometry - pain control - acetaminophen prn, lidocaine patch to site of chest tube - repeat cx in the am - m/l repeat CT Chest w/o on 09/14 Code Status: FULL Disposition: repeat lytic therapy today, still with >100cc drainage, repeat cxr in am Critical Care Time: 33 mins This Critical Care Time was spent on evaluating, managing and providing care to this critically ill patient. Includes time spent at bedside, reviewing laboratory and radiology findings, discussing plan of care and concerns with ICU staff and consulting services, and making critical decisions regarding patients' response to treatment. This time was exclusive of any procedures performed separately. Date of Service: 09/12/24 Bryan Johnson MD MPH Critical Care Medicine Pulmonary Medicine Vitals/IOs: Temp: [98.2 degrees F (36.8 degrees C)-99 degrees F (37.2 degrees C)] 99 degrees F (37.2 degrees C) Heart Rate: [81-103] 81 Resp: [16-18] 16 BP: (121-151)/(84-92) 131/84 Temp (24hrs), Av.5 degrees F (36.9 degrees C), Min:98.2 degrees F (36.8 degrees C), Max:99 degrees F (37.2 degrees C) Intake/Output last 3 shifts: I/O last 3 completed shifts: In: 2193.3 [P.O.:240; I.V.:1553.3; IV Piggyback:400] Out: 900 [Chest Tube:900] Fluid Status: Intake/Output Summary (Last 24 hours) at 09/12/2024 1253 Last data filed at 09/12/2024 0602 Gross per 24 hour Intake 310 ml Output 550 ml Net -240 ml Laboratory: Results from last 7 days Lab Units 09/12/24 0436 09/11/24 0536 09/10/24 0317 09/10/24 0313 09/09/24 1154 09/08/24 0601 WBC K/mcL 14.80* 15.97* -- 15.50* -- 19.96* HGB g/dL 12.4 12.2 -- 12.0 -- 12.2 HCT % 38.0 37.3 -- 37.5 -- 37.0 MCV fL 88.8 89.2 -- 90.6 -- 90.0 PLT K/mcL 435* 446* -- 439* -- 393 BUN mg/dL 8 10 -- 14 -- 11 SODIUM mmol/L 140 139 -- 143 -- 137 POTASSIUM mmol/L 3.5 3.5 -- 3.4* -- 3.6 CHLORIDE mmol/L 106 106 -- 110* -- 104 MAGNESIUM mg/dL -- -- -- -- -- 1.8 INR -- -- 1.3* -- 1.4* -- Imaging: Results for orders placed during the hospital encounter of 09/07/24 XR Chest 1 View Narrative EXAMINATION: XR CHEST PA/AP HISTORY: ORDERING SYSTEM PROVIDED HISTORY: Chest tube/empyema, TECHNOLOGIST PROVIDED HISTORY: Illness/Other Reason for exam: Chest tube/empyema Cancer History: u Surgery, RadiationHistory: u Encounter Type: Ongoing Additional signs and symptoms: Chest tube/empyema ORDERING SYSTEM PROVIDED DIAGNOSIS CODES: J18.9 Parapneumonic effusion J91.8 Parapneumonic effusion COMPARISON: Portable chest radiograph dated 09/11/2024. TECHNIQUE: AP upright portable chest radiograph performed. FINDINGS: Stable pleural catheter with the distal tip along the medial aspect of the right lower chest. There is a persistent however smaller, small pneumothorax along the lateral margin of the right lower chest measuring 1.1 cm in transverse dimension. There is persistent patchy and dense consolidation within the right lower chest suggesting atelectasis and/or infiltrate. There is a small amount of pleural fluid along the lateral margin of the right mid chest. There is no pulmonary vascular congestion. There is a small calcified granuloma laterally within the left upper chest. There is no acute osseous abnormality. There is slight scoliosis. There are mild degenerative changes along the spine. There is calcific tendinitis distal aspect of the right supraspinatus tendon. Impression Stable pleural catheter with the distal tip along the m (more content not included)... [facility] 09-12-2024 Progress note Formatting of t his note might be different from the original. AM CXR reviewed with mild improvement. 2nd dose of lytic therapy administered to right chest tube. Chest tube clamped. Pt instructed to reposition [id number]. Will unclamp in 1 hour. 1315 Chest tube unclamped, to suction -20cm. Draining serous/purulent fluid. Patient tolerating well. Repeat CXR in AM to re-assess empyema and need for continued lytic therapy. [facility] 09-12-2024 Note HMS PROGRESS NOTE Patient Name: Gricel Patel : 1985 Assessment and Plan Gricel Patel is a 38 y.o. 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 Sepsis, POA Right lung loculated effusion Right lower lobe pneumonia Severe pleuritic pain Atelectasis Leukocytosis WBC-19.96->15.97->14.80 CT CAP reviewed-modest rind of nonspecific right pleural fluid, internal complexity noted, seems loculated. Associated atelectasis of right middle and lower lobe. Sputum Cx-p Blood Cx-no growth Body fluid Cx- no growth Etiology unclear but probably dental, she needs couple teeth extracted. Ceftriaxone and Flagyl for anaerobic coverage. No association with healthcare institution, no need for MRSA coverage at this time. S/p oral steroids IV Toradol S/p IV Hydration Pulmonary consult. Discussed with Dr. Schofield. IR consult S/p Chest tube placement 09/08/24, 09/10/24 Pain management CM Lytic therapy started 09/11/24, Incentive Spirometry Chest x-ray 09/10/24-New larger-caliber drain overlies the right hemidiaphragm. Persistent moderate-sized inferolateral right hydropneumothorax, not significantly changed. Nicotine dependence Smokes a pack per day and vapes. Patient does not want any patch at this time. Smoking cessation Obesity -BMI 34.12 Encourage diet and exercise Discharge Planning Patient Medically Ready for Discharge: no Patient requires continued hospitalization due to: Pain management, IV Antibiotics Expected Date of Discharge: 09/13/24 Expected Discharge Location: Home Quality Measures DVT Prophylaxis: lovenox Samuel Catheter: absent Code Status Full Code Subjective Patient resting in bed, pain better controlled today, does endorse some right neck pain , no fever or chills Objective BP 121/84 Pulse 83 Temp 98.4 degrees F (36.9 degrees C) (Oral) Resp 16 Ht 5' 5 Wt 93 kg (205 lb 0.4 oz) LMP (LMP Unknown) Comment: preg test done and neg SpO2 92% BMI 34.12 kg/m Physical Examination General Appearance: alert; well appearing; in moderate acute distress HEENT: Head- normocephalic; Eyes- EOMI, sclera anicteric; Throat- mucous membranes moist Cardiovascular: regular rate and rhythm; normal S1, S2; no murmurs, rubs, clicks or gallops; peripheral edema absent Respiratory: lungs clear to auscultation; without wheezes, rales or rhonchi; on room air; pain with palpation to back Abdomen: soft, non-tender, non-distended Neurological: oriented x 3; normal speech; no focal findings or movement disorder noted Musculoskeletal: no significant deformity or tenderness to palpation Skin: normal coloration, Right chest tube intact with suction , no crepitus noted Psych: normal mood and affect AUTHENTICATED BY CARO KRUGER, ON 09/12/2024 10:13:52 [facility] 09-11-2024 Note Attestation signed by Bryan Johnson MD at 09/11/2024 5:52 PM I have independently seen and examined the patient. I have reviewed the pertinent lab and diagnostic data (both new and old if applicable). I agree with the ARPITA history, physical exam, and assessment and plan, with any modifications noted below. If present, please see my separate consult, progress note, or addendum for additional details. Subjective: Seen at bedside, reviewed cxr at bedside for 09/11 Breathing better compared to presentation Pain present, but improved compared to the sharp stabbing pain Still requiring heated high flow Objective Vitals: I have reviewed vitals from over the past 24 hours. I/Os: I have reviewed I/Os from over the past 24 hours. Exam: Gen: nad, a*ox3 CV: rrr, no murmurs Resp: diminished R chest, Chest: R chest tube noted, with serous fluid in tubing - connected to suction Abd: soft, ntnd, +bs MSK: no swelling, no edema, no joint swelling noted Neuro: cn ii-xii grossly intact, strength grossly intact upper/lower/bilateral, follows commands Psych: cooperative, appropriate mood Labs: I have reviewed labs from over the past 24 hours. Imaging: I have reviewed imaging from over the past 24 hours. Assessment/Impression: This is a 38 y.o. female with no pmhx. Pulm/Crit is being consulted for R-sided Empyema. R Pleural Effusion, Moderate - Empyema, m/l Loculated S/p chest tube 09/08, replaced 09/10 Lytic therapy started 09/11 Sepsis, 2/2 to above, improved Acute Hypoxic Resp Failure 2/2 to above RLL Pneumonia - CAP, Aspiration (dental?) R Sided Chest Pain / Pleuritic Chest Pain - improved Tobacco Abuse Disorder / Vape Abuse Obesity Class I Plan/Recommendations: - cxr reviewed at bedside, minimal improvement noted of effusion - plan for lytic therapy - first dose today - continue to follow for culture results - agree with abx - ceftriaxone / flagyl - follow cultures - pain control - lidocaine patch, acetaminophen, oxycodone prn - encourage incentive spirometry Disposition: - lytic therapy, repeat cxr - will assess for repeat therapy tomorrow Critical Care Time: 40 mins This Critical Care Time was spent on evaluating, managing and providing care to this critically ill patient. Includes time spent at bedside, reviewing laboratory and radiology findings, discussing plan of care and concerns with ICU staff and consulting services, and making critical decisions regarding patients' response to treatment. This time was exclusive of any procedures performed separately. Date of Service: 09/11/2024 Bryan Johnson MD MPH Critical Care Medicine Pulmonary Medicine PULMONOLOGY PROGRESS 09/11/2024 Patient: Gricel Patel Date of : 1985 Site: [facility] Provider: Celia Bennett CNP ASSESSMENT/PLAN: Gricel Jorge 38 y.o. female with history of no active medical problems presented to the hospital with chest pain radiating to her back for the past 1-2 weeks. This was associated with difficulty breathing over the past few days which is why she presented to the hospital. Denies having obvious fever or chills but has been having feeling of hot and cold. Initial CT imaging indicated a right sided, loculated pleural effusion consistent with empyema. On 09/08/24 a right sided chest tube was placed with immediate return of purulent fluid. Right sided empyema. Sp chest tube placement on 09/08 with an immediate 800ml/24 hours drained. Repeat CXR with basilar/lateral pneumothorax possibly secondary to entrapped lung. Pleural fluid studies consistent with exudative. Aerobic pleural fluid culture NTD. MRSA negative. Chest tube noted to be dislodged on 09/09 and removed. Replaced by IR on 09/10 with 350ml/24 hours drained. Start Intrapleural lytic therapy today (09/11). Serial CXRs. Please consistently randy chest tube output on Pleur-evac and document in output. No new Assessment & Plan notes have been filed under this hospital service since the last note was generated. Service: Pulmonology SUBJECTIVE: History Since Last Visit: no acute overnight changes. Pending Lab and Radiology Results Order Current Status Body Fluid Aerobic Culture Preliminary result Interpretation of Testing: I personally reviewed the Chest X-ray and agree with the interpretation(s). Review of Systems: All other systems reviewed and negative other than HPI OBJECTIVE: Physical Examination: BP (!) 145/93 Pulse 93 Temp 97.4 degrees F (36.3 degrees C) (Oral) Resp 16 Ht 5' 5 Wt 93 kg (205 lb 0.4 oz) LMP (LMP Unknown) Comment: preg test done and neg SpO2 91% BMI 34.12 kg/m Temp: [97.4 degrees F (36.3 degrees C)-98.7 degrees F (37.1 degrees C)] 97.4 degrees F (36.3 degrees C) Heart Rate: [78-93] 93 Res (more content not included)... [facility] 09-11-2024 Progress note Formatting of t his note might be different from the original. Intrapleural lytics administered to right chest tube. CT clamped. Patient tolerated well. Instructed to rotate q15 minutes. Will unclamp in 1 hour. 1405: Chest tube unclamped with -20cm continuous suction. 125ml immediately drained. Patient tolerated well. [facility] 09-11-2024 Note HMS PROGRESS NOTE Patient Name: Gricel Patel : 1985 Assessment and Plan Gricel Patel is a 38 y.o. female patient of No, Physician with no documented past history status post appendectomy presented with complaints of pain under her right breast wrapping around her back. Sepsis, POA Right lung loculated effusion Right lower lobe pneumonia Severe pleuritic pain Atelectasis Leukocytosis WBC-19.96->15.97 CT CAP reviewed-modest rind of nonspecific right pleural fluid, internal complexity noted, seems loculated. Associated atelectasis of right middle and lower lobe. Sputum Cx-p Blood Cx-no growth Body fluid Cx- no growth Etiology unclear but probably dental, she needs couple teeth extracted. Ceftriaxone and Flagyl for anaerobic coverage. No association with healthcare institution, no need for MRSA coverage at this time. S/p oral steroids IV Toradol S/p IV Hydration Pulmonary consult. Discussed with Dr. Schofield. IR consult S/p Chest tube placement 09/08/24, 09/10/24 Pain management CM Incentive Spirometry Chest x-ray 09/10/24-New larger-caliber drain overlies the right hemidiaphragm. Persistent moderate-sized inferolateral right hydropneumothorax, not significantly changed. Nicotine dependence Smokes a pack per day and vapes. Patient does not want any patch at this time. Smoking cessation Obesity -BMI 34.12 Encourage diet and exercise Discharge Planning Patient Medically Ready for Discharge: no Patient requires continued hospitalization due to: Pain management, IV Antibiotics Expected Date of Discharge: 09/13/24 Expected Discharge Location: Home Quality Measures DVT Prophylaxis: lovenox Samuel Catheter: absent Code Status Full Code Subjective Patient resting in bed, pain better controlled today, does endorse some right neck pain , no fever or chills Objective BP (!) 145/93 Pulse 93 Temp 97.4 degrees F (36.3 degrees C) (Oral) Resp 16 Ht 5' 5 Wt 93 kg (205 lb 0.4 oz) LMP (LMP Unknown) Comment: preg test done and neg SpO2 91% BMI 34.12 kg/m Physical Examination General Appearance: alert; well appearing; in moderate acute distress HEENT: Head- normocephalic; Eyes- EOMI, sclera anicteric; Throat- mucous membranes moist Cardiovascular: regular rate and rhythm; normal S1, S2; no murmurs, rubs, clicks or gallops; peripheral edema absent Respiratory: lungs clear to auscultation; without wheezes, rales or rhonchi; on room air; pain with palpation to back Abdomen: soft, non-tender, non-distended Neurological: oriented x 3; normal speech; no focal findings or movement disorder noted Musculoskeletal: no significant deformity or tenderness to palpation Skin: normal coloration, Right chest tube intact with suction Psych: normal mood and affect AUTHENTICATED BY CARO KRUGER, ON 09/11/2024 11:29:39 [facility] 09-10-2024 Note Attestation signed by Chandu Mathew MD at 09/10/2024 12:57 PM I have independently seen and examined the patient. I have reviewed the pertinent lab and diagnostic data (both new and old if applicable). I agree with the ARPITA history, physical exam, and assessment and plan, with any modifications noted below. If present, please see my separate consult or progress note for additional details. 38-year-old with right sided empyema s/p chest tube placement on 09/08 with immediate drainage of pus from her right pleural space. LDH and glucose values consistent with empyema, cultures remained negative. Patient had drainage of around 800 cc from the chest tube in the first 24 hours of placement before it stopped draining. CT chest confirmed the chest tube to have dislodged out of the pleural space on 09/09. Consulted IR and chest tube replaced today. Continue chest tube to -20 suction. Depending on the output from the chest tube, she will likely need instillation of tpA/dornase through the chest tube over the next few days to clear up the empyema. Chest x-ray reviewed this morning which shows basilar pneumothorax in the location of the empyema. This is pneumothorax ex vacuo and is indicative of an entrapped lung. The hope is that with the drainage of the empyema, the lung will still have the capacity to be able to expand. PULMONOLOGY PROGRESS 09/10/2024 Patient: Gricel Patel Date of : 1985 Site: [facility] Provider: Claude Cosby CNP ASSESSMENT/PLAN: Gricel Patel 38 y.o. female with history of no active medical problems presented to the hospital with chest pain radiating to her back for the past 1-2 weeks. This was associated with difficulty breathing over the past few days which is why she presented to the hospital. Denies having obvious fever or chills but has been having feeling of hot and cold. Initial CT imaging indicated a right sided, loculated pleural effusion consistent with empyema. On 09/08/24 a right sided chest tube was placed with immediate return of pus like fluid. Right sided pleural effusion. CT imaging indicated a large, loculated right sided pleural effusion with rind. S/p chest tube placement 09/08/24. Body fluid exudative per light's criteria. MRSA-, Body fluid aerobic with many WBC/RBC. Chest tube replaced by IR 09/10/24 Will plan on Intrapleural lytic therapy 09/11/24 Continue antibiotics. Patient will need extended antibiotic therapy with follow up imaging to determine pleural effusion resolution. PRN bronchodilators. Pain control. No new Assessment & Plan notes have been filed under this hospital service since the last note was generated. Service: Pulmonology SUBJECTIVE: History Since Last Visit: S/p IR chest tube placement. Patient with complaint of localized pain, otherwise without complaint. Pending Lab and Radiology Results Order Current Status VR Chest Tube Right In process XR Chest 1 View In process Body Fluid Aerobic Culture Preliminary result Interpretation of Testing: I personally reviewed the No new imaging and agree with the interpretation(s). Review of Systems: Eyes:No diplopia ENT:No sinus drainage CV:No chest pain. No ankle swelling GI:No abdominal pain.No abdominal distention :No dysuria Neuro:No headache Integumentary:No skin rash All other systems reviewed and negative other than HPI OBJECTIVE: Physical Examination: BP 128/84 Pulse 86 Temp 97.3 degrees F (36.3 degrees C) (Oral) Resp (!) 20 Ht 5' 5 Wt 93 kg (205 lb 0.4 oz) LMP (LMP Unknown) Comment: preg test done and neg SpO2 95% BMI 34.12 kg/m Temp: [97.3 degrees F (36.3 degrees C)-98.1 degrees F (36.7 degrees C)] 97.3 degrees F (36.3 degrees C) Heart Rate: [68-92] 86 Resp: [13-24] 20 BP: (111-170)/(73-102) 128/84 SpO2 Readings from Last 1 Encounters: 09/10/24 95% Intake/Output Summary (Last 24 hours) at 09/10/2024 1238 Last data filed at 09/10/2024 0436 Gross per 24 hour Intake 665 ml Output -- Net 665 ml Vital Signs Reviewed. Gen: Alert and oriented x 3, In no apparent distress HEENT: Head: Normocephalic, no lesions, without obvious abnormality. Pharynx: Dental Hygiene adequate. Normal buccal mucosa. Normal pharynx. Neck: nontender, full range of motion, no mass, no focal lymphadenopathy Cardio: regular rate and rhythm, no murmur, brisk capillary refill Resp: clear to auscultation bilaterally, no wheezes or crackles, no tachypnea or accessory muscle use Abd: soft, nontender, nondistended, no hepatosplenomegaly, no mass, normal bowel sounds MSK: Moves all four extremities spontaneously. Neuro: Grossly normal without focal findings Skin: no rashes, no jaundice Laboratory and Additional Data Reviewed: [x] Medications reviewed. [x] Labs r (more content not included)... [facility] 09-10-2024 Note [facility] PROGRESS NOTE Patient Name: Gricel Patel : 1985 Assessment and Plan Gricel Patel is a 38 y.o. 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 Sepsis, POA Right lung loculated effusion Right lower lobe pneumonia Severe pleuritic pain Atelectasis Leukocytosis WBC-19.96 CT CAP reviewed-modest rind of nonspecific right pleural fluid, internal complexity noted, seems loculated. Associated atelectasis of right middle and lower lobe. Sputum Cx-p Blood Cx-p Body fluid Cx- no growth Etiology unclear but probably dental, she needs couple teeth extracted. Ceftriaxone and Flagyl for anaerobic coverage. No association with healthcare institution, no need for MRSA coverage at this time. IV Toradol and steroids for pleuritic pain. S/p IV Hydration Pulmonary consult. Discussed with Dr. Schofield. IR consult S/p Chest tube placement 09/08/24, 09/10/24 Pain management CM Incentive Spirometry Nicotine dependence Smokes a pack per day and vapes. Patient does not want any patch at this time. Smoking cessation Obesity -BMI 34.12 Encourage diet and exercise Discharge Planning Patient Medically Ready for Discharge: no Patient requires continued hospitalization due to: Pain management, IV Antibiotics Expected Date of Discharge: 09/13/24 Expected Discharge Location: Home Quality Measures DVT Prophylaxis: lovenox Samuel Catheter: absent Code Status Full Code Subjective Patient resting in bed,just returned from IR after having chest tube replaced, pain tolerable. Objective BP 128/84 Pulse 86 Temp 97.3 degrees F (36.3 degrees C) (Oral) Resp (!) 20 Ht 5' 5 Wt 93 kg (205 lb 0.4 oz) LMP (LMP Unknown) Comment: preg test done and neg SpO2 95% BMI 34.12 kg/m Physical Examination General Appearance: alert; well appearing; in moderate acute distress HEENT: Head- normocephalic; Eyes- EOMI, sclera anicteric; Throat- mucous membranes moist Cardiovascular: regular rate and rhythm; normal S1, S2; no murmurs, rubs, clicks or gallops; peripheral edema absent Respiratory: lungs clear to auscultation; without wheezes, rales or rhonchi; on room air; pain with palpation to back Abdomen: soft, non-tender, non-distended Neurological: oriented x 3; normal speech; no focal findings or movement disorder noted Musculoskeletal: no significant deformity or tenderness to palpation Skin: normal coloration, chest tube intact to right side Psych: normal mood and affect AUTHENTICATED BY CARO KRUGER ON 09/10/2024 11:32:16 [facility] 09-10-2024 Note Vascular & Intervent ional Radiology Provided By [facility] (Diagnostic Radiology, Interventional and Neurointerventional Radiology and Vascular Medicine) Interventional Radiology Department @ : [phone] CT Procedures @ : [phone] [place] Procedures @ : [email or web address] [facility] PROCEDURE: 24 fr right chest tube placement FINDINGS: Loculated effusion Light red fluid with debri PLAN: Suction Defer to surgery for tpa/meds/cultures Date: 09/10/24 Patient Name: Gricel Patel Patient : 1985 Physician: DO Sandra Lou Protocol: Pre-Procedural verification: Correct patient, correct site and correct procedure confirmed. H&P or interval update complete and in medical record. Informed consent form completed and signed. Radiology images, labs and pathology reviewed with appropriate identifiers (when applicable). Site Marking: N/A Time Out: PERFORMED Complications: None Full report to follow AUTHENTICATED BY DEANNA VALDES, ON 09/10/2024 09:48:48 [facility] 09-10-2024 Procedure note Vascular & Interventional Radiology Provided By [facility] (Diagnostic Radiology, Interventional and Neurointerventional Radiology and Vascular Medicine) Interventional Radiology Department @ : [phone] CT Procedures @ : [phone] [place] Procedures @ : [email or web address] [facility] PROCEDURE: 24 fr right chest tube placement FINDINGS: Loculated effusion Light red fluid with debri PLAN: Suction Defer to surgery for tpa/meds/cultures Date: 09/10/24 Patient Name: Gricel Patel Patient : 1985 Physician: Deanna Valdes DO [place] Protocol: Pre-Procedural verification: Correct patient, correct site and correct procedure confirmed. H&P or interval update complete and in medical record. Informed consent form completed and signed. Radiology images, labs and pathology reviewed with appropriate identifiers (when applicable). Site Marking: N/A Time Out: PERFORMED Complications: None Full report to follow [facility] 09-10-2024 Procedure note Vascular & Interventional Radiology Provided By [facility] (Diagnostic Radiology, Interventional and Neurointerventional Radiology and Vascular Medicine) Interventional Radiology Department @ : [phone] CT Procedures @ : [phone] [place] Procedures @ : [email or web address] [facility] PROCEDURE: 24 fr right chest tube placement FINDINGS: Loculated effusion Light red fluid with debri PLAN: Suction Defer to surgery for tpa/meds/cultures Date: 09/10/24 Patient Name: Gricel Patel Patient : 1985 Physician: Deanna Valdes DO [place] Protocol: Pre-Procedural verification: Correct patient, correct site and correct procedure confirmed. H&P or interval update complete and in medical record. Informed consent form completed and signed. Radiology images, labs and pathology reviewed with appropriate identifiers (when applicable). Site Marking: N/A Time Out: PERFORMED Complications: None Full report to follow [facility] Chest Tube Insertion Procedure Note Patient Name: Gricel Patel Admit Date: [id number] MR #: [id number] : 1985 Sedation Plan: No Sedation - local anesthesia with lidocaine [place] Protocol: 1. Pre-procedure verification: - Correct patient, correct site, correct procedure (correct patient verified against two identifiers: name and date of ) - H&P or H&P update complete and in medical record - Consent form completed and signed: Yes - Informed consent risks: pneumothorax, bleeding including hemothorax, chest pain, coughing, fevers, infection - Review of: Radiology images, scans, labs, pathology, biopsy reports with appropriate identifiers (if applicable) - Any required blood products, implants, devices, and/or special equipment for the procedure (if applicable) 2. Site Markings - when appropriate: Site marked by Licensed Independent Practitioner or other provider who is priviledged and credentialed to perform procedures 3. Time Out: Timeout occurred at the following time: 1130 (Includes validating the following: Correct patient, correct side/site marked and procedure to performed, correct position) Other: Hand Hygiene completed Procedure completed using maximum barrier precautions Chest x-ray ordered Indications: Loculated pleural effusion Procedure Details: A time out was performed to verify patient identity and site for the procedure. The patient was appropriately positioned. Using sterile technique, the right chest was prepped with chlorhexidine and draped. 1% lidocaine was used to anesthetize the rib space. A #11 scalpel was used to make a skin incision. The thoracic cavity was then entered at the rib space with a seeker needle. Pus was aspirated and the guidewire was inserted. The guidewire started to hit resistence and became kinked. The guidewire was removed and a new kit was utilized to enter from the same site. The chest tube was passed into the pleural space over the guidewire. The tube was connected to suction (20 mmHg) and fluid was obtained. The chest tube was sutured and dressed. Ultrasound guidance was used during this procedure Estimated Blood Loss: Minimal Complications: None documented in this encounter [facility] 09-10-2024 History and physical note I have reviewed the solution consultant H&P, consult and reviewed the findings and imaging. I agree with the consultation note. MP: 3 ASA: 3 Will plan to right chest tube placement [facility] Work Phone: 09-10-2024 Note I have reviewed the solution consultant H&P, consult and reviewed the findings and imaging. I agree with the consultation note. MP: 3 ASA: 3 Will plan to right chest tube placement AUTHENTICATED BY DEANNA VALDES, ON 09/10/2024 08:55:32 [facility] 09-10-2024 History and physical note I have reviewed the solution consultant H&P, consult and reviewed the findings and imaging. I agree with the consultation note. MP: 3 ASA: 3 Will plan to right chest tube placement [facility] HISTORY AND PHYSICAL -- [facility] Patient Name: Gricel Patel : 1985 MR #: [id number] Admit Date: 09/07/2024 Physicians: Krystle, Physician (Family); Randy Garber MD (Referring) Gricel Patel is a 38 y.o. female patient of Krystle, Physician with no documented past history status post appendectomy presented with complaints of pain under her right breast wrapping around her back. Sepsis, POA [tachycardia and leukocytosis] Right lung loculated effusion Right lower lobe pneumonia Severe pleuritic pain Atelectasis CT CAP reviewed-modest rind of nonspecific right pleural fluid, internal complexity noted, seems loculated. Associated atelectasis of right middle and lower lobe. Obtain sputum and blood cultures. Etiology unclear but probably dental, she needs couple teeth extracted. Ceftriaxone and Flagyl for anaerobic coverage. No association with healthcare institution, no need for MRSA coverage at this time. IV Toradol and steroids for pleuritic pain. Received 1 L bolus at [facility] ER, will give another liter and start on MIF. Pulmonary consult. Discussed with Dr. Schofield. IR consult to evaluate for thoracentesis versus chest tube. Definitive treatment will depend on drainage. Nicotine dependence Smokes a pack per day. Patient does not want any patch at this time. Residence prior to admission: house or apartment Was patient transferred from outlying hospital or ED yes -- care site [facility] Quality Measures DVT Prophylaxis: lovenox Samuel Catheter: absent Medication Reconciliation: Verified Admitted with these risk variables:Pneumonia . Please see assessment and plan for further details. Estimated Date of Discharge greater than 2 midnights Code Status Full Code; code status verified on 09/07/2024 with patient (capacity intact) Chief Complaint right sided chest pain History of Present Illness This is a 38-year-old female with no documented past history status post appendectomy presented with complaints of pain under her right breast wrapping around her back. Onset around 1.5 weeks ago intermittently gradually getting worse. Today it was very intense that she could not even take minimally deep breath. Any movement would make it worse as well. Associated with some nausea but has not had any emesis. Reports of feeling hot and cold but denies any objective fevers or chills. Denies any chest pain palpitation lightheadedness. No other medical history, smokes 1 pack/day. Does have couple tooth that needs to be extracted but has not been done yet. Past Medical History No past medical history on file. Past Surgical History Past Surgical History: Procedure Laterality Date APPENDECTOMY Family History No family history on file. Social History Tobacco Use History[1] Social History Substance and Sexual Activity Alcohol Use None Social History Substance and Sexual Activity Drug Use Never Allergy Information I have reviewed the patient's allergies. Patient has no known allergies. Home Medications Home medications were reviewed. Review Of Systems All relevant systems have been reviewed and are negative except as noted in HPI or below Physical Examination BP 116/79 Pulse (!) 103 Temp 98.9 F (37.2 C) (Oral) Resp 18 LMP (LMP Unknown) SpO2 94% General Appearance: alert; acute on chronically ill appearing; in moderate acute distress HEENT: Head- normocephalic; Eyes- EOMI, sclera anicteric; Throat- mucous membranes moist Cardiovascular: regular rate and rhythm; normal S1, S2; no murmurs, rubs, clicks or gallops; peripheral edema absent Respiratory: Diminished right base with some coarseness appreciated room air Abdomen: soft, non-tender, non-distended Neurological: oriented x 3; normal speech; no focal findings or movement disorder noted Musculoskeletal: no significant deformity or tenderness to palpation Skin: normal coloration Psych: normal mood and affect [1] Social History Tobacco Use Smoking Status Every Day Types: Cigarettes Smokeless Tobacco Never documented in this encounter [facility] 09-09-2024 Consult note Associated Order (s): IP CONSULT TO CARE MANAGEMENT Care Management Consult Note Date: 09/09/2024 Time: 3:02 PM Patient Name: Gricel Patel Date of : 1985 Reason for Consult: Discharge Plan: Plan A: Home Plan B: Home Health Care Services Discharging Transportation Plan: Discharge Plan Status: Spoke with patient at bedside, explained Care Management role. Patient agreed to interview. Patient from home, alone. Normally independent, drives, works and manages her own medications. Denies food/financial insecurity. Patient denies any in home services or medical equipment needs. Patient has no PCP, she is from [place] and presents with FMLA paper work. Explained she would need to be seen by a PCP to have paper work filled out. Mother at bedside states she will call her PCP and see if they can accept patient. Will follow up with patient tomorrow to see what she found out. Caro Kruger CNP will address FMLA paper work with patient tomorrow to see if she is able to assist with it as well. Mother to transport patient home at discharge. CM will continue to follow patient for discharge needs. Assessment and Background Information: Living Arrangements: Alone Caregiver Identified: No Support Systems: Parent Assistance Needed: none Type of Residence: Private residence Prior to Admission Home Care Services: No Type of Current Home Care Services: Other (Comment) Does the patient need discharge transport arranged?: No Holistic Assessment Medication adherence problem:: No History of falls in last 6 months:: No Family aware of the patient's advance care planning wishes:: Yes Do you have any cultural/spiritual connections or beliefs that would impact how we deliver your care?: No Chronic pain:: No [facility] 09-09-2024 Consult note Associated Order (s): IP CONSULT TO INTERVENTIONAL RADIOLOGY Vascular & Interventional Radiology Provided By [facility] (Diagnostic Radiology, Interventional and Neurointerventional Radiology and Vascular Medicine) Interventional Radiology Department @ : [phone] 17/10 [facility] physician contact: [phone]) Weekday VIR ARPITA contact @ [facility]: [phone] [facility]: [email or web address] [facility] The consult was reviewed. The patient's chart was reviewed. The patient's H&P was reviewed. Gricel Patel is a 38 y.o. 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 Sepsis, POA Right lung loculated effusion Right lower lobe pneumonia Severe pleuritic pain Atelectasis Leukocytosis WBC-19.96 CT CAP reviewed-modest rind of nonspecific right pleural fluid, internal complexity noted, seems loculated. Associated atelectasis of right middle and lower lobe. Sputum Cx-p Blood Cx-p Body fluid Cx- no growth Etiology unclear but probably dental, she needs couple teeth extracted. Ceftriaxone and Flagyl for anaerobic coverage. No association with healthcare institution, no need for MRSA coverage at this time. IV Toradol and steroids for pleuritic pain. Continue IV Hydration Pulmonary consult. Discussed with Dr. Schofield. IR consult S/p Chest tube placement 09/08/24 Pain management CM Incentive Spirometry Nicotine dependence Smokes a pack per day and vapes. Patient does not want any patch at this time. Smoking cessation Obesity -BMI 34.12 CT chest personally reviewed with the appearance of chest tube outside of the pleural space and PTX ex vacuo. Removed chest tube at end expiration, covered site with vaseline gauze, sterile 4X4 and secured with silk tape. Discussed with patient and IR about requiring new chest tube. IR consult placed. VIR consulted for a new chest tube placement (please see above)- I will find out if she has been NPO. INR ordered. Per pulmonary- it needs to be done today. The patient will be scheduled for the requested chest tube placement procedure. Procedure date and time TBD by the [employer] control desk @ [phone], once pertinent labs and anticoagulant medications have been reviewed, per guidelines below. Please refer to the procedure note section for preliminary procedure details as well as the imaging section for the final procedure report. Pertinent image (if applicable): Pertinent labs are as follows: No results found for: PTT Lab Results Component Value Date PLT 393 09/08/2024 Lab Results Component Value Date BUN 11 09/08/2024 Lab Results Component Value Date CREATININE 0.68 09/08/2024 Patient's allergies are as follows: Allergies as of 09/07/2024 (No Known Allergies) VIR Yaa-procedure lab value guideline (pending P&T review 03/2020): Table 1. LOW Bleeding Risk Laboratory Guidelines Low Bleeding Risk Procedures Target Laboratory Values3 Bone Marrow Biopsy [Platelet Count - N/A] Catheter exchanges (gastrostomy, biliary, nephrostomy, abscess, including gastrostomy/gastrojejunostomy conversions) CVC tunneled >/= 8 Fr* Diagnostic venography and select venous interventions: pelvis and extremities Dialysis shunt interventions IVC filter placement and removal Non-tunneled chest tube placement for pleural effusion Non-tunneled venous access and removal (including PICC placement) and Tunneled venous access Paracentesis Peripheral nerve blocks, joint, and musculoskeletal injections Sacroiliac joint injection and sacral lateral branch blocks Superficial abscess drainage or biopsy (palpable lesion, lymph node, soft tissue, breast, thyroid) Thoracentesis Trans jugular liver biopsy Trigger point injections including piriformis Tunneled drainage catheter placement* PT/INR < 2.0 - 3.0 Platelets > 20,000/mcL (Consider transfusing platelets if <20,000/mcL) If patient with Chronic Liver Disease (based on expert opinion): PT/INR < 3.0 (Consider Vitamin K infusion if INR >3.0) Platelets > 20,000/mcL (Transfuse platelets if <20,000/mcL in patients with a large spleen) Fibrinogen > 100mg/dL (Consider cryoprecipitate if <100mg/dL) *If on Direct Oral Anticoagulant (DOAC), follow HIGH Bleeding Risk recommendations in Table 2 and Table 3 Table 2. HIGH Bleeding Risk Laboratory Guidelines: HIGH Bleeding Risk Procedures Target Laboratory Values3 Ablations: solid organs, bone, soft tissue, lung Arterial diagnostic interventions: aortic, pelvic, mesenteric, peripheral Biliary interventions (including cholecystostomy tube placement) Catheter directed thrombolysis/thrombectomy- DVT, PE, portal vein (Highly case dependent) Deep abscess drainage (e.g., lung parenchyma, abdominal, pelvic, retroperitoneal) Deep non organ biopsies (e.g., spine, soft tissue in intra-abdominal, retroperitoneal, pelvic compartments) Gastrostomy/gastrojejunostomy placement IVC filter removal complex Lumbar puncture Lymphangiography Portal vein interventions Solid organ biopsies Spine procedures with risk of spinal or epidural hematoma (e.g., kyphoplasty, vertebroplasty, epidural injections, facet blocks) Trans jugular intrahepatic portosystemic shunt Port placement/removal (Buried) Urinary tract interventions (including nephrostomy tube placement, ureteral dilation, stone removal) Venous interventions: intrathoracic and LIFE TRAINER intervention PT/INR < 1.5 - 1.8 (if arterial access, femoral: INR < 1.8, radial: INR < 2.2) Platelets > 50,000/mcL (Consider transfusing platelets if <50,000/mcL) If patient with Chronic Liver Disease (based on expert opinion): PT/INR < 2.5 (Give Vitamin K 10mg infusion if INR >2.5) Platelets > 30,000/mcL (Transfuse platelets if <30,000/mcL in patients with a large spleen) Fibrinogen > 100mg/dL (Consider cryoprecipitate if <100mg/dL) VIR Yaa-procedure anticoagulant/antiplatelet guideline (pending P&T review 03/2020): Medication LOW Bleeding Risk^ HIGH Bleeding Risk^ Reinitiation Abciximab (ReoPro ) Hold 24 hrs before procedure Hold 24 hrs before procedure Patient undergoing PCI or within immediate periprocedural period from cardiac intervention; use multidisciplinary, shared decision-making Apixaban (Eliquis ) Do not hold CrCl > 50mL/min: Hold 4 doses CrCl < 30-50mL/min: Hold 6 doses 24 hrs Aspirin OR Aspirin/Dipyridamole (Aggrenox ) Holding strategy for aspirin requires patient-specific approach; for high risk or complex cardiovascular cases, multidisciplinary, shared decision-making is suggested Do not hold Hold for 3-5 days (assumes multidisciplinary evaluation and agreement to interrupt therapy) Resume the day after procedure Argatroban (Acova ) Do not hold Hold 2-4 hrs: check aPTT 4-6 hrs Betrixaban (Bevyxxa ) Do not hold Hold for 3 doses 24 hrs Bivalirudin (Angiomax ) Do not hold Hold 2-4 hrs: check aPTT 4-6 hrs Cangrelor (Kengreal ) Defer procedure until therapy completed; if emergent, multidisciplinary discussion with Cardiology is recommended Defer procedure until therapy completed; if emergent, multidisciplinary discussion with Cardiology is recommended Patient undergoing PCI or within immediate periprocedural period from cardiac intervention; Use multidisciplinary, shared-decision making Cilostazol (Pletal ) Do not hold Do not hold N/A Clopidogrel (Plavix ) Do not hold Hold for 5 days before procedure 75mg Dose: 6 hrs after procedure Loading Dose (300-600mg): 24 hrs after procedure Dabigatran (Pradaxa ) Do not hold CrCl > 50mL/min: Hold 4 doses CrCl < 30-50mL/min: Hold 6-8 doses Consider checking thrombin time with impaired renal function 24 hrs Edoxaban (Savaysa ) Do not hold Hold for 2 doses 24 hrs Eptifibatide (Integrilin ) Hold 4-8 hrs before procedure Hold 4-8 hrs before procedure Patient undergoing PCI or within immediate periprocedural period from cardiac intervention; Use multidisciplinary, shared decision-making Fondaparinux (Arixtra ) Do not hold CrCl > 50mL/min: Hold 2-3 Days CrCl < 50mL/min: Hold 3-5 days 24 hrs LMWH: Enoxaparin (Lovenox ), Dalteparin (Fragmin ) Do not hold Check anti-Xa level if renal function impaired Prophylactic Enoxaparin: Hold 1 dose Therapeutic Enoxaparin: Hold 2 doses or 24 hrs Dalteparin: Hold 1 dose 12 hrs NSAIDS (short-, intermediate-, and long-acting) Do not hold No recommendations N/A Prasugrel (Effient ) Do not hold Hold for 7 days before procedure Resume the day after the procedure Rivaroxaban (Xarelto ) Do not hold CrCl > 50mL/min: Hold 2 doses CrCl 30-50mL/min: Hold 2 doses CrCl < 15-30mL/min: Hold 3 doses 24 hrs Ticagrelor (Brilinta ) Do not hold Hold for 5 days before procedure Resume the day after the procedure Tirofiban (Aggrastat ) Hold 4-8 hrs before procedure Hold 4-8 hrs before procedure Patient undergoing PCI or within immediate periprocedural period from cardiac intervention; Use multidisciplinary, shared decision-making Unfractionated Heparin Do not hold IV Heparin: Hold 4-6 hrs before procedure; check aPTT or anti-Xa level SubQ Heparin: Hold 6 hrs before procedure 6-8 hrs Warfarin (Coumadin ) Target INR < 3 Hold 5 days until INR < 1.8 Low Bleeding Risk: N/A or same day for bridged patients High Bleeding Risk: Resume day after procedure; Consider bridging after procedure for high thrombosis risk cases; Use multidisciplinary, shared-decision making to balance bleeding vs. thrombotic risks. Cosigned by Maikel Rodriguez MD at 09/09/2024 3:22 PM EDT [facility] Work Phone: 09-09-2024 Progress note Formatting of t his note might be different from the original. CT chest personally reviewed with the appearance of chest tube outside of the pleural space and PTX ex vacuo. Removed chest tube at end expiration, covered site with vaseline gauze, sterile 4X4 and secured with silk tape. Discussed with patient and IR about requiring new chest tube. IR consult placed. [facility] 09-09-2024 Note HMS PROGRESS NOTE Patient Name: Gricel Patel : 1985 Assessment and Plan Gricel Patel is a 38 y.o. 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 Sepsis, POA Right lung loculated effusion Right lower lobe pneumonia Severe pleuritic pain Atelectasis Leukocytosis WBC-19.96 CT CAP reviewed-modest rind of nonspecific right pleural fluid, internal complexity noted, seems loculated. Associated atelectasis of right middle and lower lobe. Sputum Cx-p Blood Cx-p Body fluid Cx- no growth Etiology unclear but probably dental, she needs couple teeth extracted. Ceftriaxone and Flagyl for anaerobic coverage. No association with healthcare institution, no need for MRSA coverage at this time. IV Toradol and steroids for pleuritic pain. Continue IV Hydration Pulmonary consult. Discussed with Dr. Schofield. IR consult S/p Chest tube placement 09/08/24 Pain management CM Incentive Spirometry Nicotine dependence Smokes a pack per day and vapes. Patient does not want any patch at this time. Smoking cessation Obesity -BMI 34.12 Encourage diet and exercise Resolved acute medical issues Discharge Planning Patient Medically Ready for Discharge: no Patient requires continued hospitalization due to: Pain management, IV Antibiotics Expected Date of Discharge: 09/13/24 Expected Discharge Location: Home Quality Measures DVT Prophylaxis: lovenox Samuel Catheter: absent Code Status Full Code Subjective Patient resting in bed, endorses 10/10 right side pain at chest tube insertion site, patient very anxious, states pain medicine is not working well, denies any shortness of breath, fever, or chills Objective BP 127/85 Pulse 81 Temp 98 degrees F (36.7 degrees C) (Oral) Resp 16 Ht 5' 5 Wt 93 kg (205 lb 0.4 oz) LMP (LMP Unknown) Comment: preg test done and neg SpO2 98% BMI 34.12 kg/m Physical Examination General Appearance: alert; well appearing; in moderate acute distress HEENT: Head- normocephalic; Eyes- EOMI, sclera anicteric; Throat- mucous membranes moist Cardiovascular: regular rate and rhythm; normal S1, S2; no murmurs, rubs, clicks or gallops; peripheral edema absent Respiratory: lungs clear to auscultation; without wheezes, rales or rhonchi; on room air; pain with palpation to back Abdomen: soft, non-tender, non-distended Neurological: oriented x 3; normal speech; no focal findings or movement disorder noted Musculoskeletal: no significant deformity or tenderness to palpation Skin: normal coloration, chest tube intact to right side Psych: normal mood and affect AUTHENTICATED BY CARO KRUGER, ON 09/09/2024 11:36:18 [facility] 09-09-2024 Plan of care note Problem: Actual or potential alteration in health Goal: Absence of healthcare acquired conditions Outcome: Partially Met Goal: Knowledge of Interdisciplinary Plan of Care Outcome: Partially Met Goal: Knowledge of Enviroment Outcome: Partially Met Problem: Pain Goal: Reduced pain sensation Outcome: Partially Met Goal: Control of acute pain to acceptable level Outcome: Partially Met Goal: Able to cope with pain Outcome: Partially Met Goal: Able to achieve maximum level of physical functioning Outcome: Partially Met Goal: Able to achieve maximum level of psychosocial functioning Outcome: Partially Met [facility] 09-09-2024 Progress note Formatting of t his note might be different from the original. .RT [employer]rapeutics Bundle Lung Expansion Indications: Not applicable Levels: Level 1 Criteria : Stable respiratory status with Fraction of Inspired Oxygen (FiO2) less than or equal to 40% Management : Therapeutic Treatment: Inspiratory Capacity greater than or equal to 30% and less than Interventions: Supervised Incentive Spirometry twice a day (BID) and every 2 hours PRN for hypoxia. Airway Clearance Indications: Not applicable Levels: Not applicable RT bundle re assess 09/10 TROY HALL RRT [facility] 09-09-2024 Note Attestation signed by Chandu Mathew MD at 09/09/2024 11:16 AM (Updated) I have independently seen and examined the patient. I have reviewed the pertinent lab and diagnostic data (both new and old if applicable). I agree with the ARPITA history, physical exam, and assessment and plan, with any modifications noted below. If present, please see my separate consult or progress note for additional details. 38-year-old with right sided empyema s/p chest tube placement on 09/08 with immediate drainage of pus from her right pleural space. LDH and glucose values consistent with empyema, cultures are still pending. Patient had drainage of around 800 cc from the chest tube since it was placed. Chest x-ray reviewed this morning which shows basilar pneumothorax in the location of the empyema. This is pneumothorax ex vacuo and is indicative of an entrapped lung. The hope is that with the drainage of the empyema, the lung will still have the capacity to be able to expand. We will have to continue monitoring it with repeat chest x-ray. Today's chest x-ray shows the chest tube to be very close to the chest wall and potentially out of the pleural cavity. It still continues to drain so I do not believe all the ports are out of the pleural space. Before we can plan for tPA/dornase instillation, I will obtain a CT chest to ensure that the chest tube is in the correct position. Continue chest tube to -20 suction for now. Obt[address] chest and we will decide about giving tPA/dornase accordingly. Update 11.15AM: CT chest reviewed with the chest tube just outside the pleural space. Pull out the chest tube Will consult IR for replacement chest tube PULMONOLOGY PROGRESS 09/09/2024 Patient: Gricel Patel Date of : 1985 Site: [facility] Provider: Claude Cosby CNP ASSESSMENT/PLAN: Gricel Patel 38 y.o. female with history of no active medical problems presented to the hospital with chest pain radiating to her back for the past 1-2 weeks. This was associated with difficulty breathing over the past few days which is why she presented to the hospital. Denies having obvious fever or chills but has been having feeling of hot and cold. Initial CT imaging indicated a right sided, loculated pleural effusion consistent with empyema. On 09/08/24 a right sided chest tube was placed with immediate return of pus like fluid. Right sided pleural effusion. CT personally reviewed with large, loculated right sided pleural effusion with rind. S/p chest tube placement 09/08/24. Body fluid exudative per light's criteria. MRSA-, Body fluid aerobic with many WBC/RBC. Chest tube output 800ml. Repeat CXR with possible tube migration, although side port appears to remain in proper positioning and with small PTX ex vacuo. Will follow up with CT chest for evaluation prior to intrapleural lytic therapy. Continue antibiotics. Patient will need extended antibiotic therapy with follow up imaging to determine pleural effusion resolution. PRN bronchodilators. Pain control. No new Assessment & Plan notes have been filed under this hospital service since the last note was generated. Service: Critical Care SUBJECTIVE: History Since Last Visit: S/p chest tube placement. Patient with complaint of localized pain, otherwise without complaint. Pending Lab and Radiology Results Order Current Status Nongyn Cytology Collected (09/08/24 1253) XR Chest 1 View In process Body Fluid Aerobic Culture Preliminary result Interpretation of Testing: I personally reviewed the Chest X-ray and agree with the interpretation(s). Review of Systems: Eyes:No diplopia ENT:No sinus drainage CV:No chest pain. No ankle swelling GI:No abdominal pain.No abdominal distention :No dysuria Neuro:No headache Integumentary:No skin rash All other systems reviewed and negative other than HPI OBJECTIVE: Physical Examination: BP 127/85 Pulse 81 Temp 98 degrees F (36.7 degrees C) (Oral) Resp 16 Ht 5' 5 Wt 93 kg (205 lb 0.4 oz) LMP (LMP Unknown) Comment: preg test done and neg SpO2 93% BMI 34.12 kg/m Temp: [98 degrees F (36.7 degrees C)-98.3 degrees F (36.8 degrees C)] 98 degrees F (36.7 degrees C) Heart Rate: [79-99] 81 Resp: [16] 16 BP: (118-147)/(80-90) 127/85 SpO2 Readings from Last 1 Encounters: 09/09/24 93% Intake/Output Summary (Last 24 hours) at 09/09/2024 0812 Last data filed at 09/09/2024 0540 Gross per 24 hour Intake 1538 ml Output 800 ml Net 738 ml Vital Signs Reviewed. Gen: Alert and oriented x 3, In no apparent distress HEENT: Head: Normocephalic, no lesions, without obvious abnormality. Pharynx: Dental Hygiene adequate. Normal buccal mucosa. Normal pharynx. Neck: nontender, full range of motion, no mass, no focal lymphaden (more content not included)... [facility] 09-08-2024 Note Formatting of this n ote is different from the original. [facility] Utilization Review Notes EMERGENCY TEMPLATE HISTORY OF PRESENT ILLNESS:38-year-old female with no documented past history status post appendectomy presented with complaints of pain under her right breast wrapping around her back. Onset around 1.5 weeks ago intermittently gradually getting worse. Today it was very intense that she could not even take minimally deep breath. Any movement would make it worse as well. VITAL SIGNS: 98.9 (37.2) 103 Abnormal 18 116/79 94% RA EKG:NOC WEIGHT: 93 kg LABS: (Abnormal / Relevant):WBC-15.06 IMAGING: (Abnormal / Relevant): CT Chest/Abd/Pelvis: 1. A modest rind of nonspecific right pleural fluid. Given morphology likely there is some internal complexity to the material. There is some associated atelectasis aspects of the right middle lobe and right lower lobe. 2. No acute finding in the abdomen or pelvis. ED TX:IV Flagyl IVPB 500 mg q 8 hr, IV 0.9%NS bolus 1000 ml x 1, IV 0.9%NS 75 ml/hr continuous DX:Right lung loculated effusion ASSESSMENT / PLAN: Right lung loculated effusion Right lower lobe pneumonia Severe pleuritic pain Atelectasis CT CAP reviewed-modest rind of nonspecific right pleural fluid, internal complexity noted, seems loculated. Associated atelectasis of right middle and lower lobe. Obtain sputum and blood cultures. Etiology unclear but probably dental, she needs couple teeth extracted. Ceftriaxone and Flagyl for anaerobic coverage. No association with healthcare institution, no need for MRSA coverage at this time. IV Toradol and steroids for pleuritic pain. Received 1 L bolus at freestanding ER, will give another liter and start on MIF. Pulmonary consult. Discussed with Dr. Schofield.R consult to evaluate for thoracentesis versus chest tube. Definitive treatment will depend on drainage. DISPO: TBD [facility] 09-08-2024 Note [place] Chest Tube Insertion Procedure Note Patient Name: Gricel Patel Admit Date: [id number] MR #: [id number] : 1985 Sedation Plan: No Sedation - local anesthesia with lidocaine [place] Protocol: 1. Pre-procedure verification: - Correct patient, correct site, correct procedure (correct patient verified against two identifiers: name and date of ) - H&P or H&P update complete and in medical record - Consent form completed and signed: Yes - Informed consent risks: pneumothorax, bleeding including hemothorax, chest pain, coughing, fevers, infection - Review of: Radiology images, scans, labs, pathology, biopsy reports with appropriate identifiers (if applicable) - Any required blood products, implants, devices, and/or special equipment for the procedure (if applicable) 2. Site Markings - when appropriate: Site marked by Licensed Independent Practitioner or other provider who is priviledged and credentialed to perform procedures 3. Time Out: Timeout occurred at the following time: 1130 (Includes validating the following: Correct patient, correct side/site marked and procedure to performed, correct position) Other: Hand Hygiene completed Procedure completed using maximum barrier precautions Chest x-ray ordered Indications: Loculated pleural effusion Procedure Details: A time out was performed to verify patient identity and site for the procedure. The patient was appropriately positioned. Using sterile technique, the right chest was prepped with chlorhexidine and draped. 1% lidocaine was used to anesthetize the rib space. A #11 scalpel was used to make a skin incision. The thoracic cavity was then entered at the rib space with a seeker needle. Pus was aspirated and the guidewire was inserted. The guidewire started to hit resistence and became kinked. The guidewire was removed and a new kit was utilized to enter from the same site. The chest tube was passed into the pleural space over the guidewire. The tube was connected to suction (20 mmHg) and fluid was obtained. The chest tube was sutured and dressed. Ultrasound guidance was used during this procedure Estimated Blood Loss: Minimal Complications: None AUTHENTICATED BY CHANDU MATHEW ON 09/08/2024 13:08:44 [facility] 09-08-2024 Procedure note [place] Chest Tube Insertion Procedure Note Patient Name: Gricel Patel Admit Date: 6130501 MR #: [id number] : 1985 Sedation Plan: No Sedation - local anesthesia with lidocaine P[place]leton Protocol: 1. Pre-procedure verification: - Correct patient, correct site, correct procedure (correct patient verified against two identifiers: name and date of ) - H&P or H&P update complete and in medical record - Consent form completed and signed: Yes - Informed consent risks: pneumothorax, bleeding including hemothorax, chest pain, coughing, fevers, infection - Review of: Radiology images, scans, labs, pathology, biopsy reports with appropriate identifiers (if applicable) - Any required blood products, implants, devices, and/or special equipment for the procedure (if applicable) 2. Site Markings - when appropriate: Site marked by Licensed Independent Practitioner or other provider who is priviledged and credentialed to perform procedures 3. Time Out: Timeout occurred at the following time: 1130 (Includes validating the following: Correct patient, correct side/site marked and procedure to performed, correct position) Other: Hand Hygiene completed Procedure completed using maximum barrier precautions Chest x-ray ordered Indications: Loculated pleural effusion Procedure Details: A time out was performed to verify patient identity and site for the procedure. The patient was appropriately positioned. Using sterile technique, the right chest was prepped with chlorhexidine and draped. 1% lidocaine was used to anesthetize the rib space. A #11 scalpel was used to make a skin incision. The thoracic cavity was then entered at the rib space with a seeker needle. Pus was aspirated and the guidewire was inserted. The guidewire started to hit resistence and became kinked. The guidewire was removed and a new kit was utilized to enter from the same site. The chest tube was passed into the pleural space over the guidewire. The tube was connected to suction (20 mmHg) and fluid was obtained. The chest tube was sutured and dressed. Ultrasound guidance was used during this procedure Estimated Blood Loss: Minimal Complications: None [facility] Work Phone: 09-08-2024 Note [facility] [place] PROGRESS NOTE Patient Name: Gricel Patel : 1985 Assessment and Plan Gricel Patel is a 38 y.o. 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 Sepsis, POA [tachycardia and leukocytosis] Right lung loculated effusion Right lower lobe pneumonia Severe pleuritic pain Atelectasis CT CAP reviewed-modest rind of nonspecific right pleural fluid, internal complexity noted, seems loculated. Associated atelectasis of right middle and lower lobe. Obtain sputum and blood cultures. Etiology unclear but probably dental, she needs couple teeth extracted. Ceftriaxone and Flagyl for anaerobic coverage. No association with healthcare institution, no need for MRSA coverage at this time. IV Toradol and steroids for pleuritic pain. Received 1 L bolus at freestanding ER, will give another liter and start on MIF. Pulmonary consult. Discussed with Dr. Schofield. IR consult to evaluate for thoracentesis versus chest tube. Definitive treatment will depend on drainage. Nicotine dependence Smokes a pack per day and vapes. Patient does not want any patch at this time. Resolved acute medical issues Discharge Planning Patient Medically Ready for Discharge: no Patient requires continued hospitalization due to: Awaiting IR intervention Expected Date of Discharge: TBD Expected Discharge Location: Home Quality Measures DVT Prophylaxis: lovenox Samuel Catheter: absent Code Status Full Code Primary Contact Information Mother and father at bedside Subjective Patient expressed she has not had good pain control yet since coming to the ED. She has not needed supplementary oxygen. She is decreased appetite since the discomfort in the lung started but is drinking fluids. She denies having a BM in a few days. Objective BP 136/85 Pulse 88 Temp 98.1 degrees F (36.7 degrees C) (Oral) Resp (!) 20 Ht 5' 5 Wt 93 kg (205 lb 0.4 oz) LMP (LMP Unknown) Comment: preg test done and neg SpO2 92% BMI 34.12 kg/m Physical Examination General Appearance: alert; well appearing; in moderate acute distress HEENT: Head- normocephalic; Eyes- EOMI, sclera anicteric; Throat- mucous membranes moist Cardiovascular: regular rate and rhythm; normal S1, S2; no murmurs, rubs, clicks or gallops; peripheral edema absent Respiratory: lungs clear to auscultation; without wheezes, rales or rhonchi; on room air; pain with palpation to back Abdomen: soft, non-tender, non-distended Neurological: oriented x 3; normal speech; no focal findings or movement disorder noted Musculoskeletal: no significant deformity or tenderness to palpation Skin: normal coloration Psych: normal mood and affect AUTHENTICATED BY MELANIE BOURGEOIS ON 09/08/2024 13:51:18 [facility] 09-08-2024 Consult note Associated Order (s): IP CONSULT TO PULMONOLOGY PULMONOLOGY CONSULT 09/08/2024 Patient: Gricel Patel Date of : 1985 Site: [facility] Referring Provider: Refer to consult order in electronic medical record Provider: Chandu Mathew MD ASSESSMENT/PLAN: Gricel Patel 38 y.o. female with no active medical problems presented to the hospital with chest pain radiating to her back for the past 1-2 weeks. Associated with difficulty breathing over the past few days which is why she presented to the hospital. Denies having obvious fever or chills but has been having feeling of hot and cold. Reported having dental carries and says she needs to go to the dentist to her tooth extracted. Reports having a 2 week long respiratory infection around [place] time. She never seeked any medical care and never got any antibiotics. Says that her symptoms got better on its own. CT chest done on admission showed presence of right-sided loculated pleural effusion. Right-sided loculated Pleural Effusion - concern for empyema Right Lower lobe pnuemonia Sepsis Nicotine dependence, active smoker - Will plan for bedside chest tube placement. Will likely need tpA/dornase instillation through the chest tube - Will send for pleural fluid analysis and culture - Continue antibiotics. Check MRSA nares - Follow-up on blood cultures and sputum culture SUBJECTIVE: Chief Complaint/Reason for Visit: Pleuritic chest pain, shortness of breath History of Present Illness: Gricel Patel 38 y.o. female with no active medical problems presented to the hospital with chest pain radiating to her back for the past 1-2 weeks. Associated with difficulty breathing over the past few days which is why she presented to the hospital. Denies having obvious fever or chills but has been having feeling of hot and cold. Reported having dental carries and says she needs to go to the dentist to her tooth extracted. Reports having a 2 week long respiratory infection around [place] time. She never seeked any medical care and never got any antibiotics. Says that her symptoms got better on its own. CT chest done on admission showed presence of right-sided loculated pleural effusion. Interpretation of Testing: I personally reviewed the CT chest and agree with the interpretation(s). Review of Systems: GI:No abdominal pain.No abdominal distention :No dysuria All other systems reviewed and negative other than HPI History reviewed. No pertinent past medical history. Past Surgical History: Procedure Laterality Date APPENDECTOMY History reviewed. No pertinent family history. Tobacco Use History[1] Additional History Comments: None Allergies: Patient has no known allergies. Current HOSPITAL Medications: Current Hospital Medications[2] Current Medications[3] OBJECTIVE: Physical Examination: BP 136/85 Pulse 88 Temp 98.1 F (36.7 C) (Oral) Resp (!) 20 Ht 5' 5 Wt 93 kg (205 lb 0.4 oz) LMP (LMP Unknown) Comment: preg test done and neg SpO2 92% BMI 34.12 kg/m Temp: [97.3 F (36.3 C)-98.9 F (37.2 C)] 98.1 F (36.7 C) Heart Rate: [86-122] 88 Resp: [16-20] 20 BP: (98-136)/(70-113) 136/85 SpO2 Readings from Last 1 Encounters: 09/08/24 92% Intake/Output Summary (Last 24 hours) at 09/08/2024 0824 Last data filed at 09/08/2024 0533 Gross per 24 hour Intake 2115 ml Output -- Net 2115 ml Vital Signs Reviewed. Gen: Alert and oriented x 3, In no apparent distress Cardio: regular rate and rhythm, no murmur Resp: Decreased breath sounds in the right lower base, no respiratory distress Abd: soft, nontender MSK: Moves all four extremities spontaneously. Neuro: Grossly normal without focal findings Skin: no rashes, no jaundice Labs and Imaging: [x] Medications reviewed. [x] Labs reviewed. Pertinent findings noted: WBC 19.96 [x] Radiology reviewed. Pertinent findings noted: CT chest reviewed [] Pathology reviewed. Pertinent findings noted: Family Update/ Code Status: Full Laboratory and Additional Data Reviewed: Reviewed 09/08/24 8:24 AM: Laboratory, Radiology, and Medications [1] Social History Tobacco Use Smoking Status Every Day Types: Cigarettes Smokeless Tobacco Never [2] aluminum-magnesium hydroxide-simethicone (MAALOX PLUS) 200-200-20 mg/5 mL suspension 30 mL, 30 mL, Oral, Q4H PRN cefTRIAXone (ROCEPHIN) IVPB 2 g (premix), 2,000 mg, Intravenous, Q24H enoxaparin (LOVENOX) syringe 40 mg, 40 mg, Subcutaneous, Daily ketorolac (TORADOL) injection 15 mg, 15 mg, Intravenous, Q6H PRN metroNIDAZOLE (FLAGYL) IVPB 500 mg, 500 mg, Intravenous, Q8H naloxone (NARCAN) injection 0.1 mg, 0.1 mg, Intravenous, PRN AND Notify physician, , , Until Discontinued AND naloxone (NARCAN) injection 0.4 mg, 0.4 mg, Intravenous, PRN ondansetron (ZOFRAN-ODT) disintegrating tablet 4 mg, 4 mg, Oral, Q6H PRN OR ondansetron (ZOFRAN) injection 4 mg, 4 mg, Intravenous, Q6H PRN oxyCODONE (ROXICODONE) immediate release tablet 5-10 mg, 5-10 mg, Oral, Q4H PRN predniSONE (DELTASONE) tablet 40 mg, 40 mg, Oral, Daily with breakfast senna-docusate (SENNA-S) 8.6-50 mg per tablet 1 tablet, 1 tablet, Oral, BID Saline lock IV, , , Continuous AND sodium chloride (PF) (NS) flush 5 mL, 5 mL, Intravenous, PRN AND sodium chloride (PF) (NS) flush 5 mL, 5 mL, Intravenous, Q8H [place] AND sodium chloride 0.9% (NS), 0-150 mL/hr, Intravenous, PRN traZODone (DESYREL) tablet 50 mg, 50 mg, Oral, Nightly PRN [3] Current Facility-Administered Medications Medication Dose Route Frequency Provider Last Rate Last Admin aluminum-magnesium hydroxide-simethicone (MAALOX PLUS) 200-200-20 mg/5 mL suspension 30 mL 30 mL Oral Q4H PRN Kassandra Hinton MD cefTRIAXone (ROCEPHIN) IVPB 2 g (premix) 2,000 mg Intravenous Q24H Kassandra Hinton MD enoxaparin (LOVENOX) syringe 40 mg 40 mg Subcutaneous Daily Kassandra Hinton MD ketorolac (TORADOL) injection 15 mg 15 mg Intravenous Q6H PRN Kassandra Hinton MD 15 mg at 09/07/242143 metroNIDAZOLE (FLAGYL) IVPB 500 mg 500 mg Intravenous Q8H Kassandra Hinton MD Stopped at 09/08/24 0533 naloxone (NARCAN) injection 0.1 mg 0.1 mg Intravenous PRN Kassandra Hinton MD And naloxone (NARCAN) injection 0.4 mg 0.4 mg Intravenous PRN Kassandra Hinton MD ondansetron (ZOFRAN-ODT) disintegrating tablet 4 mg 4 mg Oral Q6H PRN Kassandra Hinton MD Or ondansetron (ZOFRAN) injection 4 mg 4 mg Intravenous Q6H PRN Kassandra Hinton MD oxyCODONE (ROXICODONE) immediate release tablet 5-10 mg 5-10 mg Oral Q4H PRN Kassandra Hinton MD 10 mg at 09/08/24 0620 predniSONE (DELTASONE) tablet 40 mg 40 mg Oral Daily with breakfast Kassandra Hinton MD 40 mg at 09/07/24 1813 senna-docusate (SENNA-S) 8.6-50 mg per tablet 1 tablet 1 tablet Oral BID Kassandra Hinton MD sodium chloride (PF) (NS) flush 5 mL 5 mL Intravenous PRN Kassandra Hinton MD And sodium chloride (PF) (NS) flush 5 mL 5 mL Intravenous Q8H CAROLYNE Kassandra Hinton MD 5 mL at 09/08/24 0551 And sodium chloride 0.9% (NS) 0-150 mL/hr Intravenous PRN Kassandra Hinton MD traZODone (DESYREL) tablet 50 mg 50 mg Oral Nightly PRN Kassandra Hinton MD No current outpatient medications on file. [facility] 09-07-2024 Plan of care note Problem: Actual or potential alteration in health Goal: Absence of healthcare acquired conditions Outcome: Partially Met Goal: Knowledge of Interdisciplinary Plan of Care Outcome: Partially Met Goal: Knowledge of Enviroment Outcome: Partially Met Problem: Pain Goal: Reduced pain sensation Outcome: Partially Met Goal: Control of acute pain to acceptable level Outcome: Partially Met Goal: Able to cope with pain Outcome: Partially Met Goal: Able to achieve maximum level of physical functioning Outcome: Partially Met Goal: Able to achieve maximum level of psychosocial functioning Outcome: Partially Met [facility] 09-07-2024 Plan of care note Problem: Actual or potential alteration in health Goal: Absence of healthcare acquired conditions Outcome: Partially Met Goal: Knowledge of Interdisciplinary Plan of Care Outcome: Partially Met Goal: Knowledge of Enviroment Outcome: Partially Met Problem: Pain Goal: Reduced pain sensation Outcome: Partially Met Goal: Control of acute pain to acceptable level Outcome: Partially Met Goal: Able to cope with pain Outcome: Partially Met Goal: Able to achieve maximum level of physical functioning Outcome: Partially Met Goal: Able to achieve maximum level of psychosocial functioning Outcome: Partially Met [facility] 09-07-2024 Progress note Formatting of t his note might be different from the original. [employer] Bundle Lung Expansion Indications: Pulmonary atelectasis (suspected/documented) Levels: Level 1 Criteria : Stable respiratory status with Fraction of Inspired Oxygen (FiO2) less than or equal to 40% Management : Therapeutic Treatment: Inspiratory Capacity greater than or equal to 30% and less than Interventions: Supervised Incentive Spirometry twice a day (BID) and every 2 hours PRN for hypoxia. Airway Clearance Indications: Not applicable Levels: Not applicable Sera Ruiz RRT [facility] 09-07-2024 History and physical note [facility] HISTORY AND PHYSICAL -- [facility] Patient Name: Gricel Patel : 1985 MR #: [id number] Admit Date: 09/07/2024 Physicians: Krystle, Physician (Family); Randy Garber MD (Referring) Grciel Patel is a 38 y.o. female patient of Krystle, Physician with no documented past history status post appendectomy presented with complaints of pain under her right breast wrapping around her back. Sepsis, POA [tachycardia and leukocytosis] Right lung loculated effusion Right lower lobe pneumonia Severe pleuritic pain Atelectasis CT CAP reviewed-modest rind of nonspecific right pleural fluid, internal complexity noted, seems loculated. Associated atelectasis of right middle and lower lobe. Obtain sputum and blood cultures. Etiology unclear but probably dental, she needs couple teeth extracted. Ceftriaxone and Flagyl for anaerobic coverage. No association with healthcare institution, no need for MRSA coverage at this time. IV Toradol and steroids for pleuritic pain. Received 1 L bolus at [facility] ER, will give another liter and start on MIF. Pulmonary consult. Discussed with Dr. Schofield. IR consult to evaluate for thoracentesis versus chest tube. Definitive treatment will depend on drainage. Nicotine dependence Smokes a pack per day. Patient does not want any patch at this time. Residence prior to admission: house or apartment Was patient transferred from outlying hospital or ED yes -- care site [facility] Quality Measures DVT Prophylaxis: lovenox Samuel Catheter: absent Medication Reconciliation: Verified Admitted with these risk variables:Pneumonia . Please see assessment and plan for further details. Estimated Date of Discharge greater than 2 midnights Code Status Full Code; code status verified on 09/07/2024 with patient (capacity intact) Chief Complaint right sided chest pain History of Present Illness This is a 38-year-old female with no documented past history status post appendectomy presented with complaints of pain under her right breast wrapping around her back. Onset around 1.5 weeks ago intermittently gradually getting worse. Today it was very intense that she could not even take minimally deep breath. Any movement would make it worse as well. Associated with some nausea but has not had any emesis. Reports of feeling hot and cold but denies any objective fevers or chills. Denies any chest pain palpitation lightheadedness. No other medical history, smokes 1 pack/day. Does have couple tooth that needs to be extracted but has not been done yet. Past Medical History No past medical history on file. Past Surgical History Past Surgical History: Procedure Laterality Date APPENDECTOMY Family History No family history on file. Social History Tobacco Use History[1] Social History Substance and Sexual Activity Alcohol Use None Social History Substance and Sexual Activity Drug Use Never Allergy Information I have reviewed the patient's allergies. Patient has no known allergies. Home Medications Home medications were reviewed. Review Of Systems All relevant systems have been reviewed and are negative except as noted in HPI or below Physical Examination BP 116/79 Pulse (!) 103 Temp 98.9 F (37.2 C) (Oral) Resp 18 LMP (LMP Unknown) SpO2 94% General Appearance: alert; acute on chronically ill appearing; in moderate acute distress HEENT: Head- normocephalic; Eyes- EOMI, sclera anicteric; Throat- mucous membranes moist Cardiovascular: regular rate and rhythm; normal S1, S2; no murmurs, rubs, clicks or gallops; peripheral edema absent Respiratory: Diminished right base with some coarseness appreciated room air Abdomen: soft, non-tender, non-distended Neurological: oriented x 3; normal speech; no focal findings or movement disorder noted Musculoskeletal: no significant deformity or tenderness to palpation Skin: normal coloration Psych: normal mood and affect [1] Social History Tobacco Use Smoking Status Every Day Types: Cigarettes Smokeless Tobacco Never [facility] 09-07-2024 Note [facility] HISTORY AND PH[facility] Patient Name: Gricel Patel : 1985 MR #: [id number] Admit Date: 09/07/2024 Physicians: Krystle Physician (Family); Randy Garber MD (Referring) Gricel Patel is a 38 y.o. female patient of Krystle, Physician with no documented past history status post appendectomy presented with complaints of pain under her right breast wrapping around her back. Sepsis, POA [tachycardia and leukocytosis] Right lung loculated effusion Right lower lobe pneumonia Severe pleuritic pain Atelectasis CT CAP reviewed-modest rind of nonspecific right pleural fluid, internal complexity noted, seems loculated. Associated atelectasis of right middle and lower lobe. Obtain sputum and blood cultures. Etiology unclear but probably dental, she needs couple teeth extracted. Ceftriaxone and Flagyl for anaerobic coverage. No association with healthcare institution, no need for MRSA coverage at this time. IV Toradol and steroids for pleuritic pain. Received 1 L bolus at [facility], will give another liter and start on MIF. Pulmonary consult. Discussed with Dr. Schofield. IR consult to evaluate for thoracentesis versus chest tube. Definitive treatment will depend on drainage. Nicotine dependence Smokes a pack per day. Patient does not want any patch at this time. Residence prior to admission: house or apartment Was patient transferred from outlying hospital or ED yes -- care site [facility] Quality Measures DVT Prophylaxis: lovenox Samuel Catheter: absent Medication Reconciliation: Verified Admitted with these risk variables:Pneumonia . Please see assessment and plan for further details. Estimated Date of Discharge greater than 2 midnights Code Status Full Code; code status verified on 09/07/2024 with patient (capacity intact) Chief Complaint right sided chest pain History of Present Illness This is a 38-year-old female with no documented past history status post appendectomy presented with complaints of pain under her right breast wrapping around her back. Onset around 1.5 weeks ago intermittently gradually getting worse. Today it was very intense that she could not even take minimally deep breath. Any movement would make it worse as well. Associated with some nausea but has not had any emesis. Reports of feeling hot and cold but denies any objective fevers or chills. Denies any chest pain palpitation lightheadedness. No other medical history, smokes 1 pack/day. Does have couple tooth that needs to be extracted but has not been done yet. Past Medical History No past medical history on file. Past Surgical History Past Surgical History: Procedure Laterality Date APPENDECTOMY Family History No family history on file. Social History Tobacco Use History[1] Social History Substance and Sexual Activity Alcohol Use None Social History Substance and Sexual Activity Drug Use Never Allergy Information I have reviewed the patient's allergies. Patient has no known allergies. Home Medications Home medications were reviewed. Review Of Systems All relevant systems have been reviewed and are negative except as noted in HPI or below Physical Examination BP 116/79 Pulse (!) 103 Temp 98.9 degrees F (37.2 degrees C) (Oral) Resp 18 LMP (LMP Unknown) SpO2 94% General Appearance: alert; acute on chronically ill appearing; in moderate acute distress HEENT: Head- normocephalic; Eyes- EOMI, sclera anicteric; Throat- mucous membranes moist Cardiovascular: regular rate and rhythm; normal S1, S2; no murmurs, rubs, clicks or gallops; peripheral edema absent Respiratory: Diminished right base with some coarseness appreciated room air Abdomen: soft, non-tender, non-distended Neurological: oriented x 3; normal speech; no focal findings or movement disorder noted Musculoskeletal: no significant deformity or tenderness to palpation Skin: normal coloration Psych: normal mood and affect [1] Social History Tobacco Use Smoking Status Every Day Types: Cigarettes Smokeless Tobacco Never AUTHENTICATED BY KASSANDRA HINTON, ON 09/07/2024 15:30:20 [facility] 09-05-2024 Telephone encounter Note Patient notified of results, verbalized understanding. Patient stated not having eaten any food or drink yet the day she was seen, stressed importance of establishing with PCP to have labs redrawn as she had elevated glucose on fasting labs. Mac Lang MA [facility] 09-05-2024 Miscellaneous Notes Patient notified of results, verbalized understanding. Patient stated not having eaten any food or drink yet the day she was seen, stressed importance of establishing with PCP to have labs redrawn as she had elevated glucose on fasting labs. Mac Lang MA Patient has not viewed mychart message sent related to results. Please reach out via telephone. Thanks documented in this encounter [facility] 09-05-2024 Telephone encounter Note Patient has not viewed mychart message sent related to results. Please reach out via telephone. Thanks [facility] Work Phone: 09-02-2024 Instructions Aurea Doss APRN.CNP - 09/02/2024 3:29 PM EDT Appears to be muscle strain Urine dip abnormal, will check CMP does not have PCP - will need referral if abnormal - NSAIDS- see orders - Muscle relaxant- see orders documented in this encounter [facility] 09-02-2024 Note HNO ID: [id number] Author: AUREA DOSS APRN.PITA Service: ? Author Type: Nurse Practitioner Type: Progress Notes Filed: 09/02/2024 15:30 Note Text: Subjective The history is provided by the patient. No clinic office assistant was used. HPI Gricel Patel is a 38 year old female who presents today for CC of mid right sided back pain. Right flank Pain: - Acute onset sharp, intermittent pain in the right flank, x4 days. - Describes pain as sharp and shooting, lasting 5-10 minutes per episode. - Pain is localized to the right flank, with a persistent sore sensation. - Denies fever, chills, body aches, or emesis. - Works third shift at [employer]; reports high consumption of Sprite and low water intake. - Denies any other concerns. BP 104/72 Pulse 103 Temp 37.7 ?C (99.8 ?F) Resp 20 Wt 93.9 kg (207 lb 0.2 oz) LMP 12/31/2012 SpO2 96% Social History Tobacco Use Smoking status: Every Day Current packs/day: 1.00 Average packs/day: 1 pack/day for 3.0 years (3.0 ttl pk-yrs) Types: Cigarettes Smokeless tobacco: Never Substance Use Topics Alcohol use: No Drug use: No PAST MEDICAL HISTORY Diagnosis Date Infectious mononucleosis Mononucleosis Urinary tract infection, site not specified I have confirmed and edited as necessary, the [facility] Review of Systems Constitutional: Negative for chills and fever. Musculoskeletal: Positive for back pain. Negative for joint pain and myalgias. Skin: Negative for itching and rash. All other systems reviewed and are negative. Objective Physical Exam Vitals and nursing note reviewed. Pulmonary: Effort: Pulmonary effort is normal. Skin: General: Skin is warm and dry. Neurological: Mental Status: She is alert and oriented to person, place, and time. Psychiatric: Mood and Affect: Affect normal. Latest Ref Rng 09/02/2024 GLUCOSE UA (POCT) Negative mg/dL Negative BILIRUBIN UA (POCT) Negative Small ! KETONE UA (POCT) Negative mg/dL 40 ! SPECIFIC GRAVITY UA (POCT) 1.005 - 1.030 >=1.030 HEMOGLOBIN/BLOOD UA (POCT) Negative Trace-lysed ! PH UA (POCT) 4.5 - 8.0 5.5 PROTEIN UA (POCT) Negative mg/dL 100 ! UROBILINOGEN UA (POCT) Normal E.U./dL 0.2 NITRITE UA (POCT) Negative Negative LEUKOCYTES UA (POCT) Negative Negative COLOR UA (POCT) Dark yellow CLARITY UA (POCT) Cloudy ASSESSMENT/PLAN: 1. Acute right-sided back pain, unspecified back location - ICD9: 724.5, ICD10: M54.9 Appears to be muscle strain Urine dip abnormal, will check CMP does not have PCP - will need referral if abnormal - NSAIDS- see orders - Muscle relaxant- see orders - Patient given instructions use of medications as ordered, intermittent rest, back care exercise program, proper lifting techniques, and increasing water intake - UA DIP, URINE (POC) - COMPREHENSIVE METABOLIC PANEL Diagnosis and treatment plan were discussed and questions were answered to the patient's satisfaction. Pt acknowledged understanding of concepts and follow up plan. Specific signs and symptoms that would indicate the need for higher level of care were discussed in detail warranting prompt ER evaluation. Aurea Doss APRN.[facility] 09-02-2024 History of Present illness Narrative Subjective The history is provided by the patient. No clinic office assistant was used. HPI Gricel Patel is a 38 year old female who presents today for CC of mid right sided back pain. Right flank Pain: - Acute onset sharp, intermittent pain in the right flank, x4 days. - Describes pain as sharp and shooting, lasting 5-10 minutes per episode. - Pain is localized to the right flank, with a persistent sore sensation. - Denies fever, chills, body aches, or emesis. - Works third shift at [employer]; reports high consumption of Sprite and low water intake. - Denies any other concerns. BP 104/72 Pulse 103 Temp 37.7 C (99.8 F) Resp 20 Wt 93.9 kg (207 lb 0.2 oz) LMP 12/31/2012 SpO2 96% Social History Tobacco Use Smoking status: Every Day Current packs/day: 1.00 Average packs/day: 1 pack/day for 3.0 years (3.0 ttl pk-yrs) Types: Cigarettes Smokeless tobacco: Never Substance Use Topics Alcohol use: No Drug use: No PAST MEDICAL HISTORY Diagnosis Date Infectious mononucleosis Mononucleosis Urinary tract infection, site not specified I have confirmed and edited as necessary, the [facility] Review of Systems Constitutional: Negative for chills and fever. Musculoskeletal: Positive for back pain. Negative for joint pain and myalgias. Skin: Negative for itching and rash. All other systems reviewed and are negative. Objective Physical Exam Vitals and nursing note reviewed. Pulmonary: Effort: Pulmonary effort is normal. Skin: General: Skin is warm and dry. Neurological: Mental Status: She is alert and oriented to person, place, and time. Psychiatric: Mood and Affect: Affect normal. Latest Ref Rng 09/02/2024 GLUCOSE UA (POCT) Negative mg/dL Negative BILIRUBIN UA (POCT) Negative Small ! KETONE UA (POCT) Negative mg/dL 40 ! SPECIFIC GRAVITY UA (POCT) 1.005 - 1.030 >=1.030 HEMOGLOBIN/BLOOD UA (POCT) Negative Trace-lysed ! PH UA (POCT) 4.5 - 8.0 5.5 PROTEIN UA (POCT) Negative mg/dL 100 ! UROBILINOGEN UA (POCT) Normal E.U./dL 0.2 NITRITE UA (POCT) Negative Negative LEUKOCYTES UA (POCT) Negative Negative COLOR UA (POCT) Dark yellow CLARITY UA (POCT) Cloudy ASSESSMENT/PLAN: 1. Acute right-sided back pain, unspecified back location - ICD9: 724.5, ICD10: M54.9 Appears to be muscle strain Urine dip abnormal, will check CMP does not have PCP - will need referral if abnormal - NSAIDS- see orders - Muscle relaxant- see orders - Patient given instructions use of medications as ordered, intermittent rest, back care exercise program, proper lifting techniques, and increasing water intake - UA DIP, URINE (POC) - COMPREHENSIVE METABOLIC PANEL Diagnosis and treatment plan were discussed and questions were answered to the patient's satisfaction. Pt acknowledged understanding of concepts and follow up plan. Specific signs and symptoms that would indicate the need for higher level of care were discussed in detail warranting prompt ER evaluation. Aurea Doss APRN.CNP documented in this encounter [facility] Evaluation note Diagnosis Acute right-sided back pain, unspecified back location- Primary documented in this encounter [facility] note* Diagnosis Parapneumonic effusion- Primary Other specified forms of effusion, except tuberculous Parapneumonic effusion Other specified forms of effusion, except tuberculous Empyema lung (HCC) Empyema without mention of fistula documented in this encounter [facility] note* Diagnosis Pleural effusion- Primary Unspecified pleural effusion Anemia, unspecified type Encounter for health-related screening Generalized weakness Other malaise and fatigue Muscular deconditioning Muscular wasting and disuse atrophy, not elsewhere classified Tobacco abuse Tobacco use disorder Fatigue, unspecified type documented in this encounter [facility] note* Diagnosis Pleural effusion- Primary Unspecified pleural effusion documented in this encounter [facility] note* Diagnosis Pleural effusion- Primary Unspecified pleural effusion Generalized weakness Other malaise and fatigue Muscular deconditioning Muscular wasting and disuse atrophy, not elsewhere classified Fatigue, unspecified type [facility] [place] [facility]* Diagnosis Pleural effusion Unspecified pleural effusion documented in this encounter [facility] note* Diagnosis Pleural effusion Unspecified pleural effusion Anemia, unspecified type Generalized weakness Other malaise and fatigue Fatigue, unspecified type documented in this encounter [facility] note* Diagnosis Empyema (HCC)- Primary Empyema without mention of fistula documented in this encounter [facility] note* Diagnosis Empyema (HCC)- Primary Empyema without mention of fistula Empyema (HCC) Empyema without mention of fistula [facility] [place] [facility]* Diagnosis Empyema (HCC) Empyema without mention of fistula documented in this encounter [facility] note* Diagnosis Empyema (HCC)- Primary Empyema without mention of fistula Pleural effusion Unspecified pleural effusion documented in this encounter [facility] note* Diagnosis Chest pain on breathing Painful respiration documented in this encounter [facility] note* Diagnosis Chest pain on breathing- Primary Painful respiration Chest pain on breathing Painful respiration Pleural effusion Unspecified pleural effusion [facility] [place] [facility] Diagnosis Empyema (HCC)- Primary Empyema without mention of fistula Tobacco abuse Tobacco use disorder Headache, unspecified headache type Fatigue, unspecified type documented in this encounter [facility] note* Diagnosis Headache, unspecified headache type documented in this encounter [facility] note* Diagnosis Pleuritic chest pain- Primary Painful respiration Encounter for screening examination for other mental health and behavioral disorders Screening for depression Encounter for health-related screening Encounter for immunization Need for other specified prophylactic vaccination against single bacterial disease Tobacco abuse Tobacco use disorder Annual physical exam Routine general medical examination at a health care facility Other fatigue Pleuritic chest pain Painful respiration documented in this encounter [facility] note* Diagnosis Pleuritic chest pain Painful respiration [facility] [place] [facility]* Diagnosis Encounter for immunization- Primary Need for other specified prophylactic vaccination against single bacterial disease documented in this encounter [facility] note* Diagnosis Encounter for screening mammogram for breast cancer documented in this encounter [facility] for visit Narrative* Auth/Cert (Routine) Specialty Diagnoses / Procedures Referred By Venkat escudero Referred To Contact Diagnoses Parapneumonic effusion Parapneumonic effusion Referral ID Status Reason Start Date Expiration Date Visits Re quested Visits Authorized [id number] 1 1 [facility] for visit Narrative* Diagnostic Procedure Only (Routine) - Closed Specialty Diagnoses / Procedures Referred By Venkat escudero Referred To Contact US IMAGING Diagnoses Pleural effusion Anemia, unspecified type Generalized weakness Fatigue, unspecified type Procedures US DVT UPPER BILATERAL DUP-SCAN XTR VEINS COMPLETE BILATERAL STUDY Melvi Swanson MD [address] [place] [address] Phone: tel: fax: [place] [phone] Referral ID Status Reason Start Date Expiration Date V isits Requested Visits Authorized [id number] Closed Auto-Generate d Referral 10/02/2024 11/01/2025 1 1 [facility] for visit Narrative* MRI/CT (Urgent) - Closed Specialty Diagnoses / Procedures Referred By Venkat escudero Referred To Contact CT IMAGING Diagnoses Headache, unspecified headache type Procedures CT BRAIN WO IVCON CT HEAD/BRAIN W/O CONTRAST MATERIAL Melvi Swanson MD [address] [place] [address] Phone: tel: fax: [place] [phone] Referral ID Status Reason Start Date Expiration Date V isits Requested Visits Authorized [id number] Closed Auto-Generate d Referral 10/16/2024 11/15/2025 1 1 [facility] Advance Directives No Advanced Directives Records Found Date Activated Date Inactivated Comments 09/07/2024 3:04 PM 09/16/2024 6:44 PM Date Activated Date Inactivated Comments 09/07/2024 3:04 PM 09/16/2024 6:44 PM Summary Purpose Family History No Family History Records FoundNo Family History Records FoundNo Family History Records FoundNo Family History Records FoundNo Family History Records Found Additional Source Comments Source Comments (unrecognize d section and content) In the event this informatio n is protected by the Federal Confidentiality of Alcohol and Drug Abuse Patient Records regulations: The Federal rules restrict any use of the information to criminally investigate or prosecute any alcohol or drug abuse patient.[facility] the event this information is protected by the Federal Confidentiality of Alcohol and Drug Abuse Patient Records regulations: The Federal rules restrict any use of the information to criminally investigate or prosecute any alcohol or drug abuse patient.[facility] the event this information is protected by the Federal Confidentiality of Alcohol and Drug Abuse Patient Records regulations: The Federal rules restrict any use of the information to criminally investigate or prosecute any alcohol or drug abuse patient.[facility] the event this information is protected by the Federal Confidentiality of Alcohol and Drug Abuse Patient Records regulations: The Federal rules restrict any use of the information to criminally investigate or prosecute any alcohol or drug abuse patient.[facility] the event this information is protected by the Federal Confidentiality of Alcohol and Drug Abuse Patient Records regulations: The Federal rules restrict any use of the information to criminally investigate or prosecute any alcohol or drug abuse patient.[facility] the event this information is protected by the Federal Confidentiality of Alcohol and Drug Abuse Patient Records regulations: The Federal rules restrict any use of the information to criminally investigate or prosecute any alcohol or drug abuse patient.[facility] the event this information is protected by the Federal Confidentiality of Alcohol and Drug Abuse Patient Records regulations: The Federal rules restrict any use of the information to criminally investigate or prosecute any alcohol or drug abuse patient.[facility] Dublin[facility] the event this information is protected by the Federal Confidentiality of Alcohol and Drug Abuse Patient Records regulations: The Federal rules restrict any use of the information to criminally investigate or prosecute any alcohol or drug abuse patient.[facility] Dublin[facility] the event this information is protected by the Federal Confidentiality of Alcohol and Drug Abuse Patient Records regulations: The Federal rules restrict any use of the information to criminally investigate or prosecute any alcohol or drug abuse patient.[facility] Dublin[facility] the event this information is protected by the Federal Confidentiality of Alcohol and Drug Abuse Patient Records regulations: The Federal rules restrict any use of the information to criminally investigate or prosecute any alcohol or drug abuse patient.[facility] Dublin[facility] the event this information is protected by the Federal Confidentiality of Alcohol and Drug Abuse Patient Records regulations: The Federal rules restrict any use of the information to criminally investigate or prosecute any alcohol or drug abuse patient.[facility] Dublin[facility] the event this information is protected by the Federal Confidentiality of Alcohol and Drug Abuse Patient Records regulations: The Federal rules restrict any use of the information to criminally investigate or prosecute any alcohol or drug abuse patient.[facility] Dublin[facility] the event this information is protected by the Federal Confidentiality of Alcohol and Drug Abuse Patient Records regulations: The Federal rules restrict any use of the information to criminally investigate or prosecute any alcohol or drug abuse patient.[facility] Dublin[facility] the event this information is protected by the Federal Confidentiality of Alcohol and Drug Abuse Patient Records regulations: The Federal rules restrict any use of the information to criminally investigate or prosecute any alcohol or drug abuse patient.[facility] Dublin[facility] the event this information is protected by the Federal Confidentiality of Alcohol and Drug Abuse Patient Records regulations: The Federal rules restrict any use of the information to criminally investigate or prosecute any alcohol or drug abuse patient.[facility] Dublin[facility] the event this information is protected by the Federal Confidentiality of Alcohol and Drug Abuse Patient Records regulations: The Federal rules restrict any use of the information to criminally investigate or prosecute any alcohol or drug abuse patient.[facility] DublinIn the event this information is protected by the Federal Confidentiality of Alcohol and Drug Abuse Patient Records regulations: The Federal rules restrict any use of the information to criminally investigate or prosecute any alcohol or drug abuse patient.[facility] DublinIn the event this information is protected by the Federal Confidentiality of Alcohol and Drug Abuse Patient Records regulations: The Federal rules restrict any use of the information to criminally investigate or prosecute any alcohol or drug abuse patient.[facility] DublinIn the event this information is protected by the Federal Confidentiality of Alcohol and Drug Abuse Patient Records regulations: The Federal rules restrict any use of the information to criminally investigate or prosecute any alcohol or drug abuse patient.[facility] DublinIn the event this information is protected by the Federal Confidentiality of Alcohol and Drug Abuse Patient Records regulations: The Federal rules restrict any use of the information to criminally investigate or prosecute any alcohol or drug abuse patient.[facility] DublinIn the event this information is protected by the Federal Confidentiality of Alcohol and Drug Abuse Patient Records regulations: The Federal rules restrict any use of the information to criminally investigate or prosecute any alcohol or drug abuse patient.[facility] DublinIn the event this information is protected by the Federal Confidentiality of Alcohol and Drug Abuse Patient Records regulations: The Federal rules restrict any use of the information to criminally investigate or prosecute any alcohol or drug abuse patient.[facility] DublinIn the event this information is protected by the Federal Confidentiality of Alcohol and Drug Abuse Patient Records regulations: The Federal rules restrict any use of the information to criminally investigate or prosecute any alcohol or drug abuse patient.[facility] DublinIn the event this information is protected by the Federal Confidentiality of Alcohol and Drug Abuse Patient Records regulations: The Federal rules restrict any use of the information to criminally investigate or prosecute any alcohol or drug abuse patient.[facility] DublinIn the event this information is protected by the Federal Confidentiality of Alcohol and Drug Abuse Patient Records regulations: The Federal rules restrict any use of the information to criminally investigate or prosecute any alcohol or drug abuse patient.[facility] DublinIn the event this information is protected by the Federal Confidentiality of Alcohol and Drug Abuse Patient Records regulations: The Federal rules restrict any use of the information to criminally investigate or prosecute any alcohol or drug abuse patient.[facility] DublinIn the event this information is protected by the Federal Confidentiality of Alcohol and Drug Abuse Patient Records regulations: The Federal rules restrict any use of the information to criminally investigate or prosecute any alcohol or drug abuse patient.[facility] DublinIn the event this information is protected by the Federal Confidentiality of Alcohol and Drug Abuse Patient Records regulations: The Federal rules restrict any use of the information to criminally investigate or prosecute any alcohol or drug abuse patient.[facility] DublinIn the event this information is protected by the Federal Confidentiality of Alcohol and Drug Abuse Patient Records regulations: The Federal rules restrict any use of the information to criminally investigate or prosecute any alcohol or drug abuse patient.[facility] DublinIn the event this information is protected by the Federal Confidentiality of Alcohol and Drug Abuse Patient Records regulations: The Federal rules restrict any use of the information to criminally investigate or prosecute any alcohol or drug abuse patient.[facility] DublinIn the event this information is protected by the Federal Confidentiality of Alcohol and Drug Abuse Patient Records regulations: The Federal rules restrict any use of the information to criminally investigate or prosecute any alcohol or drug abuse patient.[facility] DublinIn the event this information is protected by the Federal Confidentiality of Alcohol and Drug Abuse Patient Records regulations: The Federal rules restrict any use of the information to criminally investigate or prosecute any alcohol or drug abuse patient.[facility] Reason for Visit (unrecogniz ed section and content) Reason Comments Back Pain Mid back pain x 4 da ys Reason Comments Results Patient Update Reason Comments Hospital F/U [facility] -09/16/24 Pleural effusion right lung Reason Comments Recheck pleural effusion Reason Comments Appointment Effusion Reason Comments Radiology CT Specialty Diagnoses / Procedures Referred By Contac t Referred To Contact RADIO CT SCAN [facility] Diagnoses Chest pain on breathing Procedures CTA CHEST (NONGATED) W IVCON PE CT ANGIOGRAPHY CHEST W/CONTRAST/NONCONTRAST Melvi Swanson MD [address] [place] [address] Phone: tel: fax: Cat Scan [address] [place] [address] Phone: tel: fax: Referral ID Status Reason Start Date Expiration Date V isits Requested Visits Authorized [id number] Closed Patient Cleared - Admin/Chairm an/Director advise to proceed or did not respond 10/10/2024 03/26/2025 1 1 Reason Comments Follow Up Empyema, today c/o h eadaches, fatigue Reason Comments Recheck empyema is starting to have more pain in left side and trouble taking a deep breath and is wanting to have x-ray to check progress Reason Comments Imm/Inj Scheduled Active and Recently Administ ered Medications (unrecognized section and content) Medication Order 09/14/2024 09/15/2024 09/16/2024 alteplase (INTRAPLEURAL) 10 mg/30 mL syringe (COMPLETED) 10 mg, Intrapleural, Once, On 09/15/24 at 1000, For 1 dose, For INTRAPLEURAL USE ONLY by PHYSICIAN. 1013 (Given - Provider: Uziel Stevens RN) cefTRIAXone (ROCEPHIN) IVPB 2 g (premix) 2,000 mg, Intravenous, at 100 mL/hr, Every 24 hours, First dose on 09/08/24 at 1500, Indication: CAP 0425 (Stopped - Provider: April Juares RN)1618 (New Bag - Provider: Mackenzie Arce, RN)1847 (Stopped - Provider: Mackenzie Arce, RN) 1447 (New Bag - Provider: Uziel Stevens, RN) 1500 (Due) dornase (PULMOZYME) 5 mg/30 mL intrapleural syringe (COMPLETED) 5 mg, Intrapleural, Once, On 09/15/24 at 1000, For 1 dose, FOR INTRAPLEURAL USE ONLY BY PHYSICIAN 1013 (Given - Provider: Uziel Stevens, KRYSTAL) enoxaparin (LOVENOX) syringe 40 mg 40 mg, Subcutaneous, Daily, First dose on 09/07/24 at 1600, Administer in abdomen unless otherwise directed by prescriber. Notify physician if patient refuses., Indication: VTE Prophylaxis 0826 (Given - Provider: Mackenzie Arce RN) 0839 (Given - Provider: Uziel Stevens, KRYSTAL) 0935 (Given - Provider: Debra Howard RN) lidocaine patch 1 patch 1 patch, Transdermal, Administer over 12 Hours, Daily, First dose on Mon09/11/24 at 1030, Apply to right neck for 12 hours, then remove patch for 12 hours. 0205 (Patch Removed - Provider: April Juares RN)0900 (Not Given - Provider: Mackenzie Arce RN - Reason: Patient/family refused) 0839 (Patch Applied - Provider: Uziel Stevens RN)2039 (Patch Removed - Provider: Liudmila Marte RN - Comment: patch was taken off by pt earlier) 0931 (Patch Applied - Provider: Debra Howard RN - Comment: right shoulder/neck)1630 (Due: Patch Removed - Provider: Discharge Provider, Automatic - Comment: Time automatically adjusted from order being discontinued) metroNIDAZOLE (FLAGYL) IVPB 500 mg 500 mg, Intravenous, at 200 mL/hr, Every 8 hours, First dose on Mon09/07/24 at 1900, DO NOT REFRIGERATE, Indication: Sepsis/Severe Sepsis/Septic Shock of Unknown Origin 0425 (Stopped - Provider: April Juares RN)0511 (New Bag - Provider: April Juares RN)0700 (Stopped - Provider: Mackenzie Arce RN)1725 (New Bag - Provider: Mackenzie Arce RN)1950 (Stopped - Provider: April Juares RN) 0012 (New Bag - Provider: April Juares RN)0305 (Stopped - Provider: April Juares RN)0836 (New Bag - Provider: Uziel Stevens RN)1000 (Stopped - Provider: Uziel Stevens RN)1706 (New Bag - Provider: Mary Kennedy RN) 0154 (New Bag - Provider: Liudmila Marte RN)0623 (Stopped - Provider: Jackie Jones LPN)0937 (New Bag - Provider: Debra Howard RN)1209 (Stopped - Provider: Debra Howard RN) nicotine (NICODERM CQ) 21 mg/24 hr 1 patch 1 patch, Transdermal, Administer over 24 Hours, Daily, First dose on Mon09/09/24 at 0515, U/P Listed Hazardous Drug. Waste Must Be Disposed in [employer] Waste Container 0827 (Patch Applied - Provider: Mackenzie Arce RN)0859 (Patch Removed - Provider: Mackenzie Arce RN) 0839 (Patch Removed - Provider: Uziel Stevens RN)0840 (Patch Applied - Provider: Uziel Stevens RN) 0840 (Canceled Entry - Provider: Debra Howard RN)0931 (Patch Applied - Provider: Debra Howard RN)1630 (Due: Patch Removed - Provider: Discharge Provider, Automatic - Comment: Time automatically adjusted from order being discontinued) polyethylene glycol (MIRALAX) powder 17 g 17 g, Oral, Daily, First dose on 09/08/24 at 1100 0826 (Not Given - Provider: Mackenzie Arce RN - Reason: Patient/family refused) 0839 (Given - Provider: Uziel Stevens RN) 0931 (Not Given - Provider: Debra Howard, KRYSTAL - Reason: Patient/family refused) senna-docusate (SENNA-S) 8.6-50 mg per tablet 1 tablet 1 tablet, Oral, 2 times daily, First dose on Hannah 09/12/24 at 2245, NOT for abdominal surgery patients. Hold for loose stools. Do Not Crush or Chew if administering orally due to bitter taste. May be crushed if given via tube. 0826 (Given - Provider: Mackenzie Arce RN)2108 (Given - Provider: April Juares RN) 0839 (Given - Provider: Uziel Stevens, KRYSTAL)2114 (Given - Provider: Liudmila Marte, KRYSTAL) 0931 (Given - Provider: Debra Howard, KRYSTAL) sodium chloride (PF) (NS) flush 5 mL(Linked Group 1) 5 mL, Intravenous, Every 8 hours scheduled, First dose on 09/07/24 at 1600, Saline lock 0511 (Given - Provider: April Juares, RN)1343 (Given - Provider: Mackenzie Arce RN)2111 (Given - Provider: April Juares RN) 0547 (Canceled Entry - Provider: April Juares RN)1400 (Given - Provider: Uziel Stevens, KRYSTAL)2200 (Given - Provider: Liudmila Marte, RN) 0600 (Canceled Entry - Provider: Liudmila Marte, RN)1400 (Given - Provider: Debra Howard, RN) PRN Medication Order 09/14/2024 09/15/2024 09/16/2024 aluminum-magnesium hydroxide-simethicone (MAALOX PLUS) 200-200-20 mg/5 mL suspension 30 mL 30 mL, Oral, Every 4 hours PRN, indigestion, Starting on 09/07/24 at 1501 HYDROmorphone (DILAUDID) injection 1 mg 1 mg, Intravenous, Every 2 hour PRN, moderate to severe pain, Starting on 09/11/24 at 2249 0150 (Given - Provider: April Juares RN)0508 (Given - Provider: April Juares RN)0709 (Given - Provider: April Juares RN)0913 (Given - Provider: Mackenzie Arce RN)1123 (Given - Provider: Mackenzie Arce RN)1349 (Given - Provider: Mackenzie Arce, RN)1615 (Given - Provider: Mackenzie Arce RN)1848 (Given - Provider: Mackenzie Arce RN)2108 (Given - Provider: April Juares RN)2310 (Given - Provider: Brook Finch, KRYSTAL) 0115 (Given - Provider: April Juares RN)0344 (Given - Provider: April Juares RN)0603 (Given - Provider: April Juares RN)0833 (Given - Provider: Uziel Stevens, KRYSTAL)1007 (Given - Provider: Uziel Stevens, RN)1231 (Given - Provider: Uziel Stevens, RN)1443 (Given - Provider: Uziel Stevens, RN)1701 (Given - Provider: Mary Kennedy, RN)1856 (Given - Provider: Uziel Stevens, RN)2114 (Given - Provider: Liudmila Marte, KRYSTAL) 0037 (Given - Provider: Liudmila Marte, KRYSTAL)0326 (Given - Provider: Prudence Esqueda, KRYSTAL)0541 (Given - Provider: Brook Finch, KRYSTAL)0814 (Given - Provider: Uziel Stevens, RN)1306 (Given - Provider: Debra Howard RN) hydrOXYzine (ATARAX) tablet 25 mg 25 mg, Oral, 3 times daily PRN, anxiety, Starting on 09/09/24 at 0739 iopamidoL (ISOVUE-370) 370 mg iodine /mL (76 %) injection 75 mL (COMPLETED) 75 mL, Intravenous, Once in imaging, contrast, Starting on 09/14/24 at 1244, For 1 dose 1303 (Contrast Administered - Provider: Arminda Garcia, TECHNOLOGIST - Comment: [id number] ) naloxone (NARCAN) injection 0.1 mg(Linked Group 2) 0.1 mg, Intravenous, As needed, opioid reversal, For respiratory rate less than or equal to 8 per minute., Starting on Hannah 09/12/24 at 2155, Mix nalOXone (NARCAN) 0.4 mg (1mL) with 9 mL of Normal Saline to total 10 mL. Administer 0.1 mg (2.5mL) IV Push every 2 minutes until respiratory rate is 10 or greater. naloxone (NARCAN) injection 0.4 mg(Linked Group 2) 0.4 mg, Intravenous, As needed, opioid reversal, patient is pulseless, breathless, and unresponsive, Starting on Hannah 09/12/24 at 2155, Call a code first, then administer naloxone dose undiluted IV Push over 30 seconds. ondansetron (ZOFRAN) injection 4 mg(Linked Group 3) 4 mg, Intravenous, Every 6 hours PRN, nausea, vomiting, Starting on 09/07/24 at 1518, [] Use oral route first, if tolerated. [] Use as first line antiemetic. ondansetron (ZOFRAN-ODT) disintegrating tablet 4 mg(Linked Group 3) 4 mg, Oral, Every 6 hours PRN, nausea, vomiting, Starting on 09/07/24 at 1518, [] Use oral route first, if tolerated. [] Use as first line antiemetic. Formulation requires tablet remain in sealed package until immediately prior to dose being administered. oxyCODONE-acetaminophen (PERCOCET) 5-325 mg per tablet 1-2 tablet 1-2 tablet, Oral, Every 4 hours PRN (may repeat), moderate to severe pain, Starting on Hannah 09/12/24 at 2155, Initiate with 1 tablet oral every 4 hours prn moderate to severe pain. For unrelieved pain, may repeat 1 tablet within 60 minutes of initial dose. If pain is RELIEVED after repeat dose, change to two tablets of 5/325 mg every 4 hours prn moderate to severe pain. If pain is UNrelieved after repeat dose, or patient requires dose reduction, call physician. 0043 (Given - Provider: April Mor, RN)0432 (Given - Provider: April Juares RN)0825 (Given - Provider: Mackenzie Arce, RN)1251 (Given - Provider: Mackenzie Arce RN)1723 (Given - Provider: Mackenzie Arce RN) 0011 (Given - Provider: April Juares RN)0734 (Given - Provider: Uziel Stevens, RN)1135 (Given - Provider: Uziel Stevens RN)1527 (Given - Provider: Uziel Stevens RN)1931 (Given - Provider: Liudmila Marte, RN) 0150 (Given - Provider: Liudmila Marte, RN)0613 (Given - Provider: Liudmila Marte, RN)1115 (Given - Provider: Uziel Stevens RN)1540 (Given - Provider: Debra Howard RN) sodium chloride (PF) (NS) 0.9 % contrast line flush 10 mL (COMPLETED)(Linked Group 4) 10 mL, Intravenous, Once in imaging, contrast, Per livestock showman (Radiology) for line patency check prior to contrast administration, Starting on 09/14/24 at 1244, For 1 dose 1306 (Given - Provider: Arminda Garcia TECHNOLOGIST) sodium chloride (PF) (NS) 0.9 % contrast line flush 80 mL (COMPLETED)(Linked Group 4) 80 mL, Intravenous, Once in imaging, contrast, Per livestock showman (Radiology), Starting on 09/14/24 at 1244, For 1 dose, 30 mL BEFORE contrast administration 50 mL AFTER contrast administration 1306 (Given - Provider: Arminda Garcia TECHNOLOGIST) sodium chloride (PF) (NS) flush 5 mL(Linked Group 1) 5 mL, Intravenous, As needed, line care, Starting on 09/07/24 at 1456 2310 (Given - Provider: Brook Finch, KRYSTAL) 0541 (Given - Provider: Brook Finch RN) sodium chloride 0.9% (NS)(Linked Group 1) 0-150 mL/hr, Intravenous, As needed, To flush line after IV infusions when no maintenance IV ordered or a compatibility issue. Infuse 20ml at the same rate as the secondary infusion, Starting on 09/07/24 at 1456, Run as Primary IV. NOT intended for KVO. traZODone (DESYREL) tablet 50 mg 50 mg, Oral, Nightly PRN, sleep, Starting on 09/07/24 at 1501, May repeat times 1 in 30 minutes if still awake. 2113 (Given - Provider: Liudmila Marte RN) Linked Groups Order Group 1: Saline lock IV (CANCELED) Routine, Continuous, Starting on 09/07/24 at 1457, Until Specified And sodium chloride (PF) (NS) flush 5 mLJump to med 5 mL, Intravenous, As needed, line care, Starting on 09/07/24 at 1456 And sodium chloride (PF) (NS) flush 5 mLJump to med 5 mL, Intravenous, Every 8 hours scheduled, First dose on 09/07/24 at 1600, Saline lock And sodium chloride 0.9% (NS)Jump to med 0-150 mL/hr, Intravenous, As needed, To flush line after IV infusions when no maintenance IV ordered or a compatibility issue. Infuse 20ml at the same rate as the secondary infusion, Starting on 09/07/24 at 1456, Run as Primary IV. NOT intended for KVO. Group 2: naloxone (NARCAN) injection 0.1 mgJump to med 0.1 mg, Intravenous, As needed, opioid reversal, For respiratory rate less than or equal to 8 per minute., Starting on Hannah 09/12/24 at 2155, Mix nalOXone (NARCAN) 0.4 mg (1mL) with 9 mL of Normal Saline to total 10 mL. Administer 0.1 mg (2.5mL) IV Push every 2 minutes until respiratory rate is 10 or greater. And Notify physician (CANCELED) STAT, Until discontinued, Starting on Hannah 09/12/24 at 2155, Until Specified, Respiratory rate less than: 8, For respiratory rate less than or equal to 8, notify physician and/or appropriate staff for additional orders. And naloxone (NARCAN) injection 0.4 mgJump to med 0.4 mg, Intravenous, As needed, opioid reversal, patient is pulseless, breathless, and unresponsive, Starting on Hannah 09/12/24 at 2155, Call a code first, then administer naloxone dose undiluted IV Push over 30 seconds. Group 3: ondansetron (ZOFRAN-ODT) disintegrating tablet 4 mgJump to med 4 mg, Oral, Every 6 hours PRN, nausea, vomiting, Starting on 09/07/24 at 1518, [] Use oral route first, if tolerated. [] Use as first line antiemetic. Formulation requires tablet remain in sealed package until immediately prior to dose being administered. Or ondansetron (ZOFRAN) injection 4 mgJump to med 4 mg, Intravenous, Every 6 hours PRN, nausea, vomiting, Starting on 09/07/24 at 1518, [] Use oral route first, if tolerated. [] Use as first line antiemetic. Group 4: sodium chloride (PF) (NS) 0.9 % contrast line flush 10 mL (COMPLETED)Jump to med 10 mL, Intravenous, Once in imaging, contrast, Per livestock showman (Radiology) for line patency check prior to contrast administration, Starting on 09/14/24 at 1244, For 1 dose And sodium chloride (PF) (NS) 0.9 % contrast line flush 80 mL (COMPLETED)Jump to med 80 mL, Intravenous, Once in imaging, contrast, Per livestock showman (Radiology), Starting on 09/14/24 at 1244, For 1 dose, 30 mL BEFORE contrast administration 50 mL AFTER contrast administration Care Teams (unrecognized sec tion and content) Middle School Teacher Relationship Specialty Start Date End Date No, Physician [facility] PCP - General 09/07/24 Middle School Teacher Relationship Specialty Start Date End Date Melvi Swanson MD [address] [place] [id number] PCP - General Internal Medicine/Pediatrics 10/02/24 Middle School Teacher Relationship Specialty Start Date End Date Melvi Swanson MD [address] [place] [id number] PCP - General Internal Medicine/Pediatrics 10/02/24 Middle School Teacher Relationship Specialty Start Date End Date Melvi Swanson MD [address] [place] [id number] PCP - General Internal Medicine/Pediatrics 10/02/24 Middle School Teacher Relationship Specialty [place] [address] [place] [id number] PCP - General Internal Medicine/Pediatrics 10/02/24 Middle School Teacher Relationship Specialty Start Date End Date Melvi Swanson MD [address] [place], [place] [id number] PCP - General Internal Medicine/Pediatrics 10/02/24 Middle School Teacher Relationship Specialty Start Date End Date Melvi Swanson MD [address] [place], [place] [id number] PCP - General Internal Medicine/Pediatrics 10/02/24 Middle School Teacher Relationship Specialty Start Date End Date Melvi Swanson MD [address] [place] [address] PCP - General Internal Medicine/Pediatrics 10/02/24 Middle School Teacher Relationship Specialty Start Date End Date Melvi Swanson MD [address] [place], [place] [id number] PCP - General Internal Medicine/Pediatrics 10/02/24 Middle School Teacher Relationship Specialty Start Date End Date Melvi Swanson MD [address] [place], [place] [id number] PCP - General Internal Medicine/Pediatrics 10/02/24 Middle School Teacher Relationship Specialty Start Date End Date Melvi Swanson MD [address] [place] [id number] PCP - General Internal Medicine/Pediatrics 10/02/24 Middle School Teacher Relationship Specialty Start Date End Date Melvi Swanson MD [address] [place] [id number] PCP - General Internal Medicine/Pediatrics 10/02/24 Middle School Teacher Relationship Specialty Start Date End Date Melvi Swanson MD [address] [place] [address] PCP - General Internal Medicine/Pediatrics 10/02/24 Middle School Teacher Relationship Specialty Start Date End Date Melvi Swanson MD [address] [place] [address] PCP - General Internal Medicine/Pediatrics 10/02/24 Middle School Teacher Relationship Specialty Start Date End Date Melvi Swanson MD [address] [place] [address] PCP - General Internal Medicine/Pediatrics 10/02/24 Middle School Teacher Relationship Specialty Start Date End Date Melvi Swanson MD [address] [place] [address] PCP - General Internal Medicine/Pediatrics 10/02/24 Middle School Teacher Relationship Specialty Start Date End Date Melvi Swanson MD [address] [place] [address] PCP - General Internal Medicine/Pediatrics 10/02/24 Middle School Teacher Relationship Specialty Start Date End Date Melvi Swanson MD [address] [place] [address] PCP - General Internal Medicine/Pediatrics 10/02/24 Middle School Teacher Relationship Specialty Start Date End Date Melvi Swanson MD [address] [place], [place] [id number] PCP - General Internal Medicine/Pediatrics 10/02/24 Middle School Teacher Relationship Specialty Start Date End Date Melvi Swanson MD [address] [place], [place] [id number] PCP - General Internal Medicine/Pediatrics 10/02/24 Middle School Teacher Relationship Specialty Start Date End Date No, Physician [facility] PCP - General 09/07/24 Middle School Teacher Relationship Specialty Start Date End Date Melvi Swanson MD [address] [place] [address] PCP - General Internal Medicine/Pediatrics 10/02/24 INFORMATION SOURCE (unrecogn ized section and content) DATE CREATED AUTHOR 09/24/2024 [facility] DATE CREATED AUTHOR AUTHOR'S ORGANIZ ATION [facility] DATE CREATED AUTHOR AUTHOR'S ORGANIZ ATION 10/11/2024 [facility] DATE CREATED AUTHOR AUTHOR'S ORGANIZ ATION 10/14/2024 [facility] DATE CREATED AUTHOR AUTHOR'S ORGANIZ ATION 01/03/2025 [facility] FOR RECORDS PERTAINING TO PATIENTS WHO ARE OR HAVE BEEN ENROLLED IN A CHEMICAL DEPENDENCY/SUBSTANCEABUSE PROGRAM, SOME INFORMATION MAY BE OMITTED. This clinical summary was aggregated from multiple sources. Caution should be exercised in using it in the provision of clinical care. This summary normalizes information from multiple sources, and as a consequence, information in this document may materially change the coding, format and clinical context of patient data. In addition, data may be omitted in some cases. CLINICAL DECISIONS SHOULD BE BASED ON THE PRIMARY CLINICAL RECORDS. [facility]. provides no warranty or guarantee of the accuracy or completeness of information in this document.
[2025-02-09 11:40] LABS: Internal QC Validated? YES +Cl - CLEAR BKGD; Pregnancy, Serum, hCG Quali. NEGATIVE Negative; Record Kit Lot#, Serum Preg. 980607
[2025-02-09 11:52] LABS: Alcohol, Blood (Medical)-Serum < 10.1 mg/dL (<=10.0)
[2025-02-09 11:53] LABS: Barbiturate Urine NEGATIVE (< 200 ng/mL); Benzodiazepine Urine PRESUMPTIVE POSITIVE (< 200 ng/mL); PCP Urine NEGATIVE (< 25 ng/mL); THC Urine PRESUMPTIVE POSITIVE (< 50 ng/mL)
[2025-02-09 12:07] LABS: AST(SGOT) 24 U/L (<=31); Alanine Aminotransfer ALT/SGPT 20 U/L (<=34); Albumin, Serum 4.3 g/dL (3.5-5.0); Alkaline Phosphatase 78 U/L (35-104); Anion Gap 14 (5-15); BUN 14 mg/dL (4-19); BUN/Creat Ratio 8.8 RATIO (10-20); Calcium,Total 10.1 mg/dL (7.6-11.0); Carbon Dioxide 27.9 mmol/L (21.0-32.0); Chloride 101 mmol/L (98-108); Estimated Creatinine Clearance 56.14 ml/min (50-250); Globulin 4.0 g/dL (2.2-4.2); Glucose 131 mg/dL (70-99); Potassium 3.4 mmol/L (3.3-5.1)
[2025-02-09 12:18] VITALS: PULSE 79; RESP 17; O2SAT 98
[2025-02-09 12:28] LABS: Mucous, Urine 0 SEEN /hpf (<or=2+); Red Blood Cells-Urine 0 SEEN /hpf (0-5)
--- NOTE | 2025-02-09 12:29 | PCM.HP.STD ---
HPI - General General Date of Admission: 02/09/25 HPI Narrative SHAHANA PATEL, is a 39 F who presents to the hospital requesting detox from heroin. She was here 3 days ago as heroin overdose where they found heroin in her vaginal cavity. She called 180 today who recommended she come into the hospital for detox. She has been snorting heroin for the last 3 or 4 months after her relapse from getting IV Dilaudid for thoracentesis. Her last use was less than 24 hours ago at 9 PM last night, she snorted about a gram of heroin yesterday. PFSH Medical History Substance abuse Depression Smoker Medical History no medical history Home Medications ?Medication ?Instructions ?Recorded ?Last Taken ?Type No Known/Unobtainable [No Known 05/11/13 Unknown History Home Medications] Allergy/AdvReac Type Severity Reaction Status Date / Time No Known Allergies Allergy Verified 02/09/25 10:18 Family History (Updated 02/09/25 @ 12:[address] Eliazar Motta MD) Other Hypertension Family History no significant family his Surgical History History of appendectomy Surgical History no surgical history Social History Smoking Status: Heavy Smoker (>10/day) ROS Constitutional Constitutional: Denies chills, fatigue, fever(s) or malaise Eyes Eyes: Denies blurry vision ENT HEENT: Denies headache(s) or nasal discharge Cardiovascular Cardiovascular: Denies chest pain, dyspnea on exertion or syncope Respiratory/Chest Respiratory/Chest: Denies cough, shortness of breath at rest or shortness of breath with exertion Gastrointestinal Gastrointestinal: Denies constipation, diarrhea, nausea or vomiting Genitourinary Genitourinary: Denies dysuria Neurologic Neurologic: Denies focal weakness, numbness or tremor(s) Psychiatric Psychiatric: Denies anxiety or depression Vital Signs Vital Signs Vital Signs: 02/09/25 10:19 Temperature 98.4 F Temperature Source Oral Pulse Rate 77 Respiratory Rate 16 Blood Pressure 118/87 H Blood Pressure Mean 97 Pulse Ox 93 Oxygen Delivery Method Room Air Weight Weight: 197 lb 5.019 oz Body Mass Index (BMI) 30.9 Physical Exam Narrative General: Alert, Oriented x3, Cooperative, No apparent distress HEENT: Atraumatic, PERRLA, EOMI, Normocephalic Oral: Moist Mucosa Neck: Supple, No JVD Lungs: Clear to auscultation, Normal air movement, No rhonchi, No wheeze, No rales Cardiovascular: Regular rate, Regular Rhythm, Normal S1, Normal S2, No murmurs Abdomen: Soft, Non Tender, Non-Distended, No Hepato-splenomegaly Extremities: No edema, Capillary Refill Less than 3 Seconds Skin: No rashes, No breakdown Musculoskeletal: No Tenderness to Palpation of Joints or Extremities Neurological: No focal neurological deficits, moves all extremities Psych/Mental Status: Normal Affect, Appropriate Results Lab / Micro Data 02/09/25 11:06 02/09/25 11:06 Labs: Laboratory Results - last 24 hr 02/09/25 11:06: WBC 9.3, RBC 4.71, Hgb 14.2, Hct 43.1, MCV 91.5, MCH 30.1, MCHC 32.9, RDW Std Deviation 41.8, RDW Coeff of Chetan 12.4, Plt Count 282, MPV 10.0, Immature Gran % (Auto) 0.100, Neut % (Auto) 66.6, Lymph % (Auto) 26.8, [place] % (Auto) 5.9, Eos % (Auto) 0.2, Baso % (Auto) 0.4, Absolute Neuts (auto) 6.2, Absolute Lymphs (auto) 2.50, Nucleated RBC % 0, Sodium 143, Potassium 3.4, Chloride 101, Carbon Dioxide 27.9, Anion Gap 14, BUN 14, Creatinine 1.53 H, Estim Creat Clear Calc 56.14, Est GFR (MDRD) Non-Af 44 L, BUN/Creatinine Ratio 8.8 L, Glucose 131 H, Calcium 10.1, Total Bilirubin 0.63, AST 24, ALT 20, Alkaline Phosphatase 78, Total Protein 8.4, Albumin 4.3, Globulin 4.0, Albumin/Globulin Ratio 1.1, Serum , Qual NEGATIVE, Ethyl Alcohol < 10.1 02/09/25 11:18: Urine Opiates Screen PRESUMPTIVE POSITIVE, U Buprenorphine Qual NEGATIVE, Ur Oxycodone Screen NEGATIVE, Urine Methadone Screen NEGATIVE, Urine Fentanyl Screen PRESUMPTIVE POSITIVE, Ur Barbiturates Screen NEGATIVE, Ur Phencyclidine Scrn NEGATIVE, Ur Amphetamines Screen NEGATIVE, U Benzodiazepines Scrn PRESUMPTIVE POSITIVE, Urine Cocaine Screen NEGATIVE, U Cannabinoids Screen PRESUMPTIVE POSITIVE Assessment & Plan Assessment/Plan (1) Desire for detoxification: (2) Opiate addiction: PLAN: Plan 1. Opiate abuse requesting detox after recent overdose/tobacco abuse ? Continue with the opiate withdrawal protocol ? Will have her follow-up 180 ? Discussed tobacco cessation, she is smokes about a pack a day will place her on a nicotine patch 2. Elevated creatinine ? Most recent lab work we have is from 2019 with creatinine of 1.2 today on admission at 1.5 ? Will recheck tomorrow morning DVT: Ambulation Charges/Coding Visit Charges Inpatient E&M: 86205 Init Hosp L2
[2025-02-09 12:35] LABS: Color, Urine Yellow (Yellow); Glucose, Dipstick Normal (Normal); Ketone-Dipstick 15 mg/dl (Negative); Leukocyte Esterase-Dipstick 25 /ul (Negative); Nitrite-Dipstick Negative (Negative); Occult Blood-Urine 10 /ul (Negative); Protein-Dipstick 100 mg/dl (Negative); Specific Gravity, Urine 1.020 (1.002-1.030); Urine Bilirubin Dipstick 1 mg/dL (Negative)
[2025-02-09 12:40] LABS: Squamous Epithelial Cells - UA 0-5 SEEN /hpf (5-10)
[2025-02-09 12:51] VITALS: BP 118/87; PULSE 79; RESP 17; TEMP 36.9; O2SAT 98
--- OUTSIDE RECORDS SUMMARY | 2025-02-09 13:25 | XMS RPT_ITS | CCD ---
Author Organization [facility] Care Team Providers Care Corporate Sales Manager Name Role Phone Unavailable Primary Care Provider Unavailabl e No, Physician Primary Care Provider Unavailabl e NO, PHYSICIAN Primary Care Unavailable RANDY GARBER Attending Unavailable CARLOS VICENTE Attending Unavailab KASSANDRA Handy Admitting Unavailable NO, PHYSICIAN Primary Care Unavailable RANDY GARBER Referring Unavailable MAIKEL RODRIGUEZ Consulting Unavailable ERUM MARCELO Consulting Unavailable Sky FLORENTINO, [facility] Primary Care Provider [phone] MELVI SWANSON Referring Unavailable SKY, MELVI Primary Care [...] [HYDROCODONE-ACETA MINOPHEN] Drug Allergy 02-01-2005 GI Upset [facility] Medications Current Medications Medication Drug Class(es) Dates [...] mouth once 1 tablet, Oral, Once, On [facility] 09/12/24 at 2300, For 1 dose Start: 09-12-2024 End: 09-16-2024 take 1-2 tablets by mouth every four hours as needed 1-2 tablet, Oral, Every 4 hours PRN (may repeat), moderate to severe pain, Starting on [facility] 09/12/24 at 2155, Initiate with 1 [...] 09-15-2024 10 mg, Intrapleural, Once, O n [place] 09/15/24 at 1000, For 1 dose, For INTRAPLEURAL USE ONLY by PHYSICIAN. Start: 2024 End: 2024 10 mg, Intrapleural, Once, O n [facility] 09/13/24 at 1200, For 1 dose, For INTRAPLEURAL USE ONLY by PHYSICIAN. Start: 09-12-2024 End: 09-12-2024 10 mg, Intrapleural, Once, O n [facility] 09/12/24 at 1200, For 1 dose, For INTRAPLEURAL USE ONLY by PHYSICIAN. Start: 09-11-2024 End: 09-11-2024 10 mg, Intrapleural, Once, O n [facility] 09/11/24 at 1230, For 1 dose, For [...] Discontinued docusate sodium 50 mg / sennosides, mcc 8.6 mg oral tablet (2 sources) Start: [...] dose reduction, call physician. polyethylene glycol 3350 77090 mg powder for oral solution (1 source) [...] Test Name Value Interpretation Reference Range Facility [facility] 12-30-2024 [facility] GRICEL PATEL ([id number]) 1985 F Date Time Provider Department 12/30/24 MELVI SWANSON [facility] During your visit today, we recorded the [...] vaccination [Z23] Order(s):HPV VACCINE, 9-VALENT (GARDASIL 9) [[id number]] Order #: [id number] HPV VACCINE, 9-VALENT (GARDASIL 9) [[id number]] Order #: [id number] FUTURE Prescriptions as of 12/31/2024 - nicotine (NICODERM) 14 mg/24 hr Apply 1 patch as directed every 24 hours. Problem List As Of Date 12/30/2024 Noted Resolved Genital herpes [A60.00] 07/10/2012 Encounter Status:Closed by DEN[facility] ARTH[facility] ([facility] GRICEL PATEL ([id number]) 1985 F Date Time Provider Department 11/12/24 3:30 PM [facility] today, we recorded [...] Status:Closed by DENISE ARTHUR on 11/12/24 Normal [facility] CBC panel Auto (Bld)on 11-06 Erythrocyte distribution width (RBC) [Ratio] 13.2 % 11.5 - 15.0 % [facility] Hematocrit (Bld) [Volume fraction] 41.4 % 36.0 - 46.0 % [facility] Hemoglobin (Bld) [Mass/Vol] 13.7 g/dL 11.5 - 15.5 g/dL [facility] Interpretation and review of laboratory results Normal [facility] MCH (RBC) [Entitic mass] 30.2 pg 26.0 - 34.0 pg [facility] MCHC (RBC) [Mass/Vol] 33.1 g/dL 30.5 - 36.0 g/dL [facility] MCV (RBC) [Entitic vol] 91.4 fL 80.0 - 100.0 fL [facility] Nucleated RBC (Bld) [#/Vol] NINF [facility] Platelet mean volume (Bld) [Entitic vol] 10.5 fL 9.0 - 12.7 fL [facility] Platelets (Bld) [#/Vol] 272 10*3/uL [facility] RBC (Bld) [#/Vol] 4.53 10*6/uL 3.90 - 5.2 0 m/uL [facility] WBC (Bld) [#/Vol] 7.24 10*3/uL [facility] Erythrocyte distribution width (RBC) [Ratio] 13.2 % Normal 11.5-15.0 [facility] Comment on above: Order Comment: Speci men Type: BLOOD SPECIMENOrdering Facility: [facility] Address: [address] [place] [address] Performed By: #### 5 8410-2, 3027-7 ####[facility] LABCLIA [id number] [place] [address] [place] Hematocrit (Bld) [Volume fraction] 41.4 % Normal 36.0-46.0 [facility] Comment on above: Order Comment: Speci men Type: BLOOD SPECIMENOrdering Facility: [facility] Address: [address] [place] [address] Performed By: #### 5 8410-2, 4537-7 ####[facility] LABCLIA [id number] [place] [address] [place] Hemoglobin (Bld) [Mass/Vol] 13.7 g/dL Normal 11.5-15.5 [facility] Comment on above: Order Comment: Speci men Type: BLOOD SPECIMENOrdering Facility: [facility] Address: [address] [place] [address] Performed By: #### 5 8410-2, 453-7 ####[facility] LABCLIA [id number] [place] [address] [place] MCH (RBC) [Entitic mass] 30.2 pg Normal 26.0-34.0 [facility] Comment on above: Order Comment: Speci men Type: BLOOD SPECIMENOrdering Facility: [facility] Address: [address] [place] [address] Performed By: #### 5 8410-2, 4536-7 ####[facility] LABCLIA [id number] [place] [address] [place] MCHC (RBC) [Mass/Vol] 33.1 g/dL Normal 30.5-36.0 [facility] Comment on above: Order Comment: Speci men Type: BLOOD SPECIMENOrdering Facility: [facility] Address: [address] [place] [address] Performed By: #### 5 8410-2, 7-7 ####[facility] LABIA [id number] [place] [address] [place] MCV (RBC) [Entitic vol] 91.4 fL Normal 80.0-100.0 [facility] Comment on above: Order Comment: Speci men Type: BLOOD SPECIMENOrdering Facility: [facility] Address: [address] [place] [address] Performed By: #### 5 8410-2, 7-7 ####[facility] LABIA [id number] [place] [address] [place] Nucleated RBC (Bld) [#/Vol] 10*3/uL Normal <0.01 [facility] Comment on above: Order Comment: Speci men Type: BLOOD SPECIMENOrdering Facility: [facility] Address: [address] [place] [address] Performed By: #### 5 8410-2, 4536-7 ####[facility] [id number] [place] [address] [place] Platelet mean volume (Bld) [Entitic vol] 10.5 fL Normal 9.0-12.7 [facility] Comment on above: Order Comment: Speci men Type: BLOOD SPECIMENOrdering Facility: [facility] Address: [address] [place] [address] Performed By: #### 5 8410-2, 4536-7 ####[facility] [id number] [place] [address] [place] Platelets (Bld) [#/Vol] 272 10*3/uL Normal 150-400 [facility] Comment on above: Order Comment: Speci men Type: BLOOD SPECIMENOrdering Facility: [facility] Address: [address] [place] [address] Performed By: #### 5 8410-2, 4536-7 ####[facility] LABIA [id number] [place] [address] [place] RBC (Bld) [#/Vol] 4.53 10*6/uL Normal 3.90-5.20 [facility] Comment on above: Order Comment: Speci men Type: BLOOD SPECIMENOrdering Facility: [facility] Address: [address] [place] [address] Performed By: #### 5 8410-2, 4537-7 ####[facility] LABCLIA [id number] [address] [address] [place] WBC (Bld) [#/Vol] 7.24 10*3/uL Normal 3.70-11.00 [facility] Comment on above: Order Comment: Speci men Type: BLOOD SPECIMENOrdering Facility: [facility] Address: [address] [place] [id number] Performed By: #### 5 8410-2, 45377 ####[facility] LABCLIA [id number] [address] [address] [place] CNOVon 11-06-2024 CNOV Office Visit (KRISWS ) GRICEL PATEL ([id number]) 1985 F Date Time Provider Department 11/06/24 [...] vomiting, or diarrhea or abdominal pain. No [place] bleeding or melana : No history of [...] General: Awake, alert, not in acute distress HEAD GRINDER: Answering questions appropriately. No abnormal posturing or [...] Abs Lymph 1.00 - 4.00 k/uL 2.00 Williams% % 4.7 Abs Williams <0.87 k/uL 0.36 Eosin% % 0.1 Abs [...] 2.3 mg/ (more content not included)... Normal [facility] CRP SerPl-mCncon 11-06-2024 CRP [Mass/Vol] mg/L Normal <0.9 [facility] Comment on above: Order Comment: Speci men Type: BLOOD SPECIMENOrdering Facility: [facility] Address: [address] [place] [address] Performed By: #### 1 988-5, 2276-4 ####[facility] LABCLIA [id number] [place] [address] [place] ESR Westergren method (Bld) [Velocity]on 11-06-2024 ESR (Bld) [Velocity] 10 mm/h [facility] Interpretation and review of laboratory results Normal [facility] ESR (Bld) [Velocity] 10 mm/h Normal 0-20 [facility] Comment on above: Order Comment: Speci men Type: BLOOD SPECIMENOrdering Facility: [facility] Address: [address] [place] [address] Performed By: #### 5 8410-2, 4537-7 ####[facility] LABIA [id number] [place] [address] [place] Ferritin SerPl-mCncon 2024 Ferritin [Mass/Vol] 145.0 ng/mL Normal 14.7-205.1 [facility] Comment on above: Order Comment: Speci men Type: BLOOD SPECIMENOrdering Facility: [facility] Address: [address] [place] [address] Performed By: #### 1 988-5, 2916-4 ####[facility] LABCLIA [id number] [place] [id number] [place] HBV core Ab Ser Qlon 025 HBV core Ab Ql (S) Negative Normal Negative [facility] Comment on above: Order Comment: Speci men Type: BLOOD SPECIMENOrdering Facility: [facility] Address: [address] [place] [address] Result Comment: No e vidence of current or past infection with Hepatitis B virus. Should recent infection be suspected, repeat testing may be considered 3-4 weeks after this draw. Performed By: #### 5 195-3, 36910-9, 61053-3, 62648-3 ####[facility] LABCLIA [id number] [address] [address] [place] HBV surface Ab Ql (S)on 10-25 HBV surface Ab Qn (S) 24.87 mIU/mL Normal [facility] Comment on above: Order Comment: Speci men Type: BLOOD SPECIMENOrdering Facility: [facility] Address: [address] [place] [address] Result Comment: <8 m IU/mL: No serological evidence of immunity to Hepatitis B Virus. >/= 8 to <12 mIU/mL: No serological evidence of immunity to Hepatitis B Virus. >/= 12 mIU/mL: Consistent with serological evidence of immunity to Hepatitis B Virus. Performed By: #### 5 195-3, 27234-2, 09685-9, 14716-4 ####[facility] LABCLIA [id number] [address] [address] [place] HBV surface Ab Ser Qlon 10-25 HBV surface Ab Ql (S) Positive Normal [facility] Comment on above: Order Comment: Speci men Type: BLOOD SPECIMENOrdering Facility: [facility] Address: [address] [place] [address] Result Comment: Cons istent with serological evidence of immunity to Hepatitis B Virus. Performed By: #### 5 195-3, 33094-3, 39533-4, 62484-9 ####[facility] LABCLIA [id number] [address] [address] [place] HBV surface Ag Ser Qlon 10-25 HBV surface Ag Ql (S) Negative Normal Negative [facility] Comment on above: Order Comment: Speci men Type: BLOOD SPECIMENOrdering Facility: [facility] Address: [address] [place] [address] Performed By: #### 5 195-3, 53924-6, 32101-4, 74408-9 ####[facility] LABCLIA [id number] [place] [address] [place] HCV Ab Ser Qlon 11-06-2024 HCV Ab Ql (S) Negative Normal Negative [facility] Comment on above: Order Comment: Speci men Type: BLOOD SPECIMEN [facility] Address: [address] [place] [address] Result Comment: The result suggests no evidence of infection with Hepatitis C virus. Should recent infection be suspected, repeat testing may be considered 4-6 weeks after this draw. Performed By: #### 5 0190-8, LIPNF, 54054-2, TSHRF #### [facility] CLIA [id number] [address] [place] [address] [place] HIV 1+2 Ab IA Qlon HIV 1 and 2 Ab IA.rapid Nom (S/P/Bld) Normal [facility] Comment on above: Order Comment: Speci men Type: BLOOD SPECIMENOrdering Facility: [facility] Address: [address] [place] [address] Result Comment: Test not indicated. Performed By: #### 5 195-3, 87973-3, 88013-2, 74193-7 ####[facility] LABCLIA [id number] [place] [address] [place] HIV 1+2 Ab+HIV1 p24 Ag IA Ql Non-Reactive Normal Nonreactive [facility] Comment on above: Order Comment: Speci men Type: BLOOD SPECIMENOrdering Facility: [facility] Address: [address] [place] [address] Performed By: #### 5 195-3, 09265-0, 39059-3, 47603-0 ####[facility] LABCLIA [id number] [place] [address] [place] HIV immunoassay testing algorithm interpretation (S/P/Bld) [Interp] Normal [facility] Comment on above: Order Comment: Speci men Type: BLOOD SPECIMENOrdering Facility: [facility] Address: [address] [place] [address] Result Comment: No e vidence of HIV-1 or HIV-2 infection. Should recent infection be suspected, repeat testing may be considered 2-3 weeks after this draw. Butts Rev. Code 3701.243(E): This information has been [...] or diagnoses. Performed By: #### 5 195-3, 47099-4, 38712-0, 73011-1 ####[facility] LABCLIA [id number] [place] [address] [place] HbA1c (Bld)on 11-06-2024 Average glucose Estimated from glycated hemoglobin (Bld) [Mass/Vol] 117 mg/dL Normal [facility] Comment on above: Order Comment: Speci men Type: BLOOD SPECIMEN [facility] Address: [address] [place] [address] Result Comment: eAG: (Estimated average glucose) is a calculated value from HgbA1c and is territory account representative of the average blood glucose level in the last 2-3 month period. Performed By: #### 5 5454-3 #### [facility] CLIA [id number] [address] [place] [address] [place] HbA1c (Bld) [Mass fraction] 5.7 % High 4.3-5.6 [facility] Comment on above: Order Comment: Speci men Type: BLOOD SPECIMEN [facility] Address: [address] [place] [address] Result Comment: Amer ican Diabetes Association guidelines indicate that patients with HgbA1c in the range 5.7-6.4% are at increased risk for development of diabetes, and intervention by lifestyle modification may be beneficial. HgbA1c greater or equal to 6.5% is considered diagnostic of diabetes. Performed By: #### 5 5454-3 #### [facility] CLIA [id number] [address] [place] [address] [place] Iron and Iron binding capaci ty panelon 11-06-2024 Iron [Mass/Vol] 84 ug/dL Normal 41-186 [facility] Comment on above: Order Comment: Specgregory muhammad Type: BLOOD SPECIMEN [facility] Address: [address] [place] [address] Performed By: #### 5 0190-8, LIPNF, 74331-7, TSHRF #### [facility] CLIA [id number] [address] [place] [address] [place] Iron binding capacity [Mass/Vol] 284 ug/dL Normal 232-386 [facility] Comment on above: Order Comment: Chidi muhammad Type: BLOOD SPECIMEN [facility] Address: [address] [place] [address] Performed By: #### 5 0190-8, LIPNF, 75413-6, TSHRF #### [facility] CLIA [id number] [address] [place] [address] [place] Iron/TIBC [Molar ratio] 29.6 % Normal 15.0-57.0 [facility] Comment on above: Order Comment: Merlyi men Type: BLOOD SPECIMEN [facility] Address: [address] [place] [address] Performed By: #### 5 0190-8, LIPNF, 11800-7, TSHRF #### [facility] CLIA [id number] [address] [place] [address] [place] [facility] [place] LIPID PANEL, NONFASTINGon Cholesterol [Mass/Vol] 195 mg/dL Normal <200 [facility] Comment on above: Order Comment: Merlyi sabina Type: BLOOD SPECIMEN [facility] Address: [address] [place] [address] Result Comment: <200 mg/dL, Desirable 200-239 mg/dL, Borderline high >239 mg/dL, High Performed By: #### 5 0190-8, LIPNF, 84541-6, TSHRF #### [facility] CLIA [id number] [address] [place] [address] [place] HDL CHOLESTEROL, NF 41 mg/dL Normal >39 [facility] Comment on above: Order Comment: Chidi sabina Type: BLOOD SPECIMEN [facility] Address: [address] [place] [address] Result Comment: 40-5 9 mg/dL, Acceptable >59 mg/dL, High: Negative risk factor for coronary heart disease <40 mg/dL, Low: Positive risk factor for coronary heart disease Performed By: #### 5 0190-8, LIPNF, 80323-6, TSHRF #### [facility] CLIA [id number] [address] [place] [address] [place] LDL CHOLESTEROL CALCULATED, NF 127 mg/dL High <100 [facility] Comment on above: Order Comment: Speci sabina Type: BLOOD SPECIMEN [facility] Address: [address] [place] [address] Result Comment: <100 mg/dL, Optimal 100-129 mg/dL, Near optimal/above optimal 130-159 mg/dL, Borderline high 160-189 mg/dL, High >189 mg/dL, Very high Secondary prevention optimal LDL Cholesterol levels are recommended to be <70 mg/dL LDL cholesterol is calculated using the Leroy-NIH equation. Performed By: #### 5 0190-8, LIPNF, 83931-0, TSHRF #### [facility] CLIA [id number] [address] [place] LDL/HDL RATIO, NF 3.10 mg/dL High <2.54 [facility] Comment on above: Order Comment: Speci men Type: BLOOD SPECIMEN [facility] Address: [address] [place] [address] Result Comment: Ruma jin: 1. National Cholesterol Education Program ATP III Guideline At-A-Glance Quick Desk Reference: National Heart, Lung, and Blood [place]. National Institutes of Health. 2001: NIH Publication No. 01-3305. 2. An International Atherosclerosis Society position paper: global recommendations for the management of dyslipidemia: executive summary, Atherosclerosis. 2014: 232(2):410-413. Performed By: #### 5 0190-8, LIPNF, 33689-2, TSHRF #### [facility] CLIA [id number] [address] [place] [address] [place] NON HDL CHOL, NF 154 mg/dL High <130 [facility] Comment on above: Order Comment: Chidi men Type: BLOOD SPECIMEN [facility] Address: [address] [place] [address] Result Comment: <130 mg/dL, Optimal 130-159 mg/dL, Near optimal/above optimal 160-189 mg/dL, Borderline high 190-219 mg/dL, High >219 mg/dL, Very high Secondary prevention optimal non HDL Cholesterol levels are recommended to be <100 mg/dL Performed By: #### 5 0190-8, LIPNF, 85431-3, TSHRF #### [facility] CLIA [id number] [address] [place] [address] [place] T CHOL/HDL RATIO NF 4.76 mg/dL Normal <5.10 [facility] Comment on above: Order Comment: Merlyi men Type: BLOOD SPECIMEN [facility] Address: [address] [place] [address] Performed By: #### 5 0190-8, LIPNF, 36179-3, TSHRF #### [facility] CLIA [id number] [address] [place] [address] [place] TRIGLYCERIDES, NF 151 mg/dL High <150 [facility] Comment on above: Order Comment: Speci men Type: BLOOD SPECIMEN [facility] Address: [address] [place] [address] Result Comment: <150 mg/dL, Normal 150-199 mg/dL, Borderline high 200-499 mg/dL, High >499 mg/dL, Very high Performed By: #### 5 0190-8, LIPNF, 78538-7, TSHRF #### [facility] CLIA [id number] [address] [place] [address] [place] VLDL CHOLESTEROL, NF 27 mg/dL Normal <30 [facility] Comment on above: Order Comment: Speci men Type: BLOOD SPECIMEN [facility] Address: [address] [place] [address] Performed By: #### 5 0190-8, LIPNF, 09606-0, TSHRF #### [facility] CLIA [id number] [address] [place] [address] [place] Renal function 2000 panelon 11-06-2024 Albumin [Mass/Vol] 4.1 g/dL Normal 3.9-4.9 [facility] Comment on above: Order Comment: Speci men Type: BLOOD SPECIMEN [facility] Address: [address] [place] [address] Performed By: #### 5 0190-8, LIPNF, 78272-7, TSHRF #### [facility] CLIA [id number] [address] [place] [address] [place] Anion gap [Moles/Vol] 11 mmol/L Normal 8-15 [facility] Comment on above: Order Comment: Speci men Type: BLOOD SPECIMEN [facility] Address: [address] [place] [address] Performed By: #### 5 0190-8, LIPNF, 09610-5, TSHRF #### [facility] CLIA [id number] [address] [place] [address] [place] Calcium [Mass/Vol] 9.7 mg/dL Normal 8.5-10.2 [facility] Comment on above: Order Comment: Speci men Type: BLOOD SPECIMEN [facility] Address: [address] [place] [address] Performed By: #### 5 0190-8, LIPNF, 29461-1, TSHRF #### [facility] CLIA [id number] [address] [place] [address] [place] Chloride [Moles/Vol] 103 mmol/L Normal 98-107 [facility] Comment on above: Order Comment: Speci men Type: BLOOD SPECIMEN [facility] Address: [address] [place] [address] Performed By: #### 5 0190-8, LIPNF, 98554-5, TSHRF #### [facility] CLIA [id number] [address] [place] [address] [place] CO2 [Moles/Vol] 26 mmol/L Normal 22-30 [facility] Comment on above: Order Comment: Speci men Type: BLOOD SPECIMEN [facility] Address: [address] [place] [address] Performed By: #### 5 0190-8, LIPNF, 08590-9, TSHRF #### [facility] CLIA [id number] [address] [place] [address] [place] Creatinine [Mass/Vol] 0.92 mg/dL Normal 0.58-0.96 [facility] Comment on above: Order Comment: Speci men Type: BLOOD SPECIMEN [facility] Address: [address] [place] [address] Performed By: #### 5 0190-8, LIPNF, 18856-0, TSHRF #### [facility] CLIA [id number] [address] [place] [address] [place] eGFRcr SerPlBld CKD-EPI 2020 81 mL/min/1.73m??? Normal >=60 [facility] Comment on above: Order Comment: Chidi muhammad Type: BLOOD SPECIMEN [facility] Address: [address] [place] [address] Result Comment: Rhea mated Glomerular Filtration Rate [...] GFR. Performed By: #### 5 0190-8, LIPNF, 64676-1, TSHRF #### [facility] CLIA [id number] [address] [place] [address] [place] Glucose [Mass/Vol] 89 mg/dL Normal 74-99 [facility] Comment on above: Order Comment: Chidi muhammad Type: BLOOD SPECIMEN [facility] Address: [address] [place] [address] Result Comment: The [place] Diabetes Association (ADA) provides guidance for cutoff [...] Standards of Medical Care in Diabetes 2016, [place] Diabetes Association. Diabetes Care. 2016.39(Suppl 1). Performed By: #### 5 0190-8, LIPNF, 19044-4, TSHRF #### [facility] CLIA [id number] [address] [place] [address] [place] [place] Phosphate [Mass/Vol] 2.9 mg/dL Normal 2.7-4.8 [facility] Comment on above: Order Comment: Speci men Type: BLOOD SPECIMEN [facility] Address: [address] [place] [address] Performed By: #### 5 0190-8, LIPNF, 04306-1, TSHRF #### [facility] CLIA [id number] [address] [place] [address] [place] Potassium [Moles/Vol] 4.5 mmol/L Normal 3.7-5.1 [facility] Comment on above: Order Comment: Speci men Type: BLOOD SPECIMEN [facility] Facility[facility] Address: [address] [place] [address] Performed By: #### 5 0190-8, LIPNF, 53889-7, TSHRF #### [facility] CLIA [id number] [address] [place] [address] [place] Sodium [Moles/Vol] 140 mmol/L Normal 136-144 [facility] Comment on above: Order Comment: Speci men Type: BLOOD SPECIMEN [facility] Address: [address] [place] [address] Performed By: #### 5 0190-8, LIPNF, 98411-8, TSHRF #### [facility] CLIA [id number] [address] [place] [address] [place] Urea nitrogen [Mass/Vol] 12 mg/dL Normal 7-21 [facility] Comment on above: Order Comment: Speci men Type: BLOOD SPECIMEN [facility] Address: [address] [place] [address] Performed By: #### 5 0190-8, LIPNF, 24596-2, TSHRF #### [facility] CLIA [id number] [address] [place] [address] [place] TSH W/REFLEX FT4on 5 TSH Qn 1.100 m[IU]/L Normal 0.270-4.200 [facility] Comment on above: Order Comment: Speci men Type: BLOOD SPECIMEN [facility] Address: [address] [place] [address] Result Comment: If t he patient is , TSH reference range varies by gestational period: First Trimester (weeks 9-12): 0.180-2.990 mIU/L Second Trimester: 0.110-3.980 mIU/L Third Trimester: 0.480-4.710 mIU/L Riley Espinoza et al. A Practical Approach for the Verifications and Determination of Site- and Trimester-Specific Reference Intervals for Thyroid Function tests in . Thyroid, 2019:29:3:412-420. Mian Rios et al. 2017 Guidelines of the [place] Thyroid Association for the Diagnosis and Management of Thyroid Disease during and the . Thyroid, 2017:27:3:315-389. Performed By: #### 5 0190-8, LIPNF, 88478-8, TSHRF #### [facility] CLIA [id number] [address] [place] [address] [place] XR CHEST 2V [...] right pleural effusion is no longer evident. Client Services Vice President: YAHAIRA Transcribe Date/Time: Nov 06 2024 3:28P Dictated by : YESENIA JAQUEZ MD This examination was interpreted and the report reviewed and electronically signed by: YESENIA JAQUEZ MD on Nov 06 2024 3:28PM EST [id number] Normal [facility] XR Chest PA and Lateralon IMPRESSION: No acute radiographic abnormality. Previously seen right pleural effusion is no longer evident. Client Services Vice President: [facility] Transcribe Date/Time: Nov 06 2024 3:28P Dictated [...] soft tissues: Unremarkable. DIVISION OF RADIOLOGY Provider, [facility] - 11/06/2024 * * *Final Report* [...] right pleural effusion is no longer evident. Client Services Vice President: YAHAIRA Transcribe Date/Time: Nov 06 2024 3:28P Dictated by : YESENIA JAQUEZ MD This examination was interpreted and the report reviewed and electronically signed by: YESENIA JAQUEZ MD on Nov 06 2024 3:28PM EST [facility] Radiology Study observation (narrative) [facility] XR Chest PA and LateralOrder ed By: [facility] Provider on 11-06-[address] [facility] [address] BRAIN WO IVCONon 10-24-19 CT BRAIN WO IVCON * * *Final Report* * * DATE OF EXAM: Oct 23 2024 3:54PM [facility] 0504 - CT BRAIN WO IVCON [...] base and imaged soft tissues are unremarkable. Blower Insulator (topogram) images: Noncontributory IMPRESSION: No acute intracranial abnormality. Client Services Vice President: YAHAIRA Transcribe Date/Time: Oct 23 2024 3:59P Dictated by : MICHAEL RAVI MD This examination was interpreted and the report reviewed and electronically signed by: MICHAEL RAVI MD on Oct 23 2024 4:01PM EST [id number] Normal [facility] CT Head WO contraston 2024 IMPRESSION: No acute intracranial abnormality. Client Services Vice President: YAHAIRA Transcribe Date/Time: Oct 23 2024 3:59P Dictated by : MICHAEL RAVI MD This examination was interpreted and the report reviewed and electronically signed by: MICHAEL RAVI MD on Oct 23 2024 4:01PM [facility] DIVISION OF RADIOLOGY * * *Final Report* * * DATE OF EXAM: Oct 23 2024 3:54PM [facility] 0504 - CT BRAIN WO IVCON [...] base and imaged soft tissues are unremarkable. Blower Insulator (topogram) images: Noncontributory DIVISION OF RADIOLOGY Provider, [facility] - 10/23/2024 * * *Final Report* * * DATE OF EXAM: Oct 23 2024 3:54PM [facility] 0504 - CT BRAIN WO IVCON [...] base and imaged soft tissues are unremarkable. Blower Insulator (topogram) images: Noncontributory IMPRESSION IMPRESSION: No acute intracranial abnormality. Client Services Vice President: [facility] Transcribe Date/Time: Oct 23 2024 3:59P Dictated by : MICHAEL RAVI MD This examination was interpreted and the report reviewed and electronically signed by: MICHAEL RAVI MD on Oct 23 2024 4:01PM EST [facility] Radiology Study observation (narrative) [facility] CT Head WO contrastOrdered B y: [facility] Provider on 10-23-2024 [facility] CBC W Auto Differential pane l (Bld)on 10-16-2024 Basophils (Bld) [#/Vol] 0.06 10*3/uL [facility] Basophils/100 WBC (Bld) 0.8 % [facility] Differential cell count method Nom (Bld) Auto [facility] Eosinophils (Bld) [#/Vol] [facility] Eosinophils/100 WBC (Bld) 0.1 % [facility] Erythrocyte distribution width (RBC) [Ratio] 13.8 % 11.5 - 15.0 % [facility] Hematocrit (Bld) [Volume fraction] 45.5 % 36.0 - 46.0 % [facility] Hemoglobin (Bld) [Mass/Vol] 14.8 g/dL 11.5 - 15.5 g/dL [facility] Immature granulocytes (Bld) [#/Vol] 0.03 10*3/uL [facility] Immature granulocytes/100 WBC (Bld) 0.4 % [facility] Interpretation and review of laboratory results Abnormal [facility] Lymphocytes (Bld) [#/Vol] 2 10*3/uL [facility] Lymphocytes/100 WBC (Bld) 25.9 % [facility] MCH (RBC) [Entitic mass] 29.2 pg 26.0 - 34.0 pg [facility] MCHC (RBC) [Mass/Vol] 32.5 g/dL 30.5 - 36.0 g/dL [facility] MCV (RBC) [Entitic vol] 89.9 fL 80.0 - 100.0 fL [facility] Monocytes (Bld) [#/Vol] 0.36 10*3/uL [facility] Monocytes/100 WBC (Bld) 4.7 % [facility] Neutrophils (Bld) [#/Vol] 5.26 10*3/uL [facility] Neutrophils/100 WBC (Bld) 68.1 % [facility] Nucleated RBC (Bld) [#/Vol] [facility] Nucleated RBC/100 WBC (Bld) [Ratio] 0 % /100 WBC [facility] Platelet mean volume (Bld) [Entitic vol] 9.3 fL 9.0 - 12.7 fL [facility] Platelets (Bld) [#/Vol] 402 10*3/uL High [facility] RBC (Bld) [#/Vol] 5.06 10*6/uL 3.90 - 5.2 0 m/uL [facility] WBC (Bld) [#/Vol] 7.72 10*3/uL [facility] Basophils (Bld) [#/Vol] 0.06 10*3/uL Normal <0.11 [facility] Comment on above: Order Comment: Speci men Type: BLOOD SPECIMENOrdering Facility: [facility] Address: [address] [place] [address] Performed By: #### 5 7021-8, 7 ####[facility] [id number] [facility] [id number], [facility]95 [place] Basophils/100 WBC (Bld) 0.8 % Normal [facility] Comment on above: Order Comment: Speci men Type: BLOOD SPECIMENOrdering Facility: [facility] Address: [address] [place] [address] Performed By: #### 5 7021-8, 7 ####[facility] [id number] [facility] [address], [place] [address] [place] Differential cell count method Nom (Bld) Auto Normal [facility] Comment on above: Order Comment: Speci men Type: BLOOD SPECIMENOrdering Facility: [facility] Address: [address] [place] [address] Performed By: #### 5 7021-8, 7 ####[facility] [id number] [facility] [address], [place] [address] [place] Eosinophils (Bld) [#/Vol] 10*3/uL Normal <0.46 [facility] Comment on above: Order Comment: Speci men Type: BLOOD SPECIMENOrdering Facility: [facility] Address: [address] [place] [address] Performed By: #### 5 7021-8, 7 ####[facility]IA [id number] [facility] [place] [address] [place] Eosinophils/100 WBC (Bld) 0.1 % Normal [facility] Comment on above: Order Comment: Speci men Type: BLOOD SPECIMENOrdering Facility: [facility] Address: [address] [place] [address] Performed By: #### 5 7021-8, 4536-7 ####[facility]IA [id number] [facility] [address], [place] [address] [place] Erythrocyte distribution width (RBC) [Ratio] 13.8 % Normal 11.5-15.0 [facility] Comment on above: Order Comment: Speci men Type: BLOOD SPECIMENOrdering Facility: [facility] Address: [address] [place] [address] Performed By: #### 5 7021-8, 4536-7 ####[facility] [id number] [place] [address] [place] Hematocrit (Bld) [Volume fraction] 45.5 % Normal 36.0-46.0 [facility] Comment on above: Order Comment: Speci men Type: BLOOD SPECIMENOrdering Facility: [facility] Address: [address] [place] [address] Performed By: #### 5 7021-8, 4536-7 ####[facility] [id number] [place] [address] [place] Hemoglobin (Bld) [Mass/Vol] 14.8 g/dL Normal 11.5-15.5 [facility] Comment on above: Order Comment: Speci men Type: BLOOD SPECIMENOrdering Facility: [facility] Address: [address] [place] [address] Performed By: #### 5 7021-8, 4536-7 ####[facility] [id number] [place] [address] [place] Immature granulocytes (Bld) [#/Vol] 0.03 10*3/uL Normal <0.10 [facility] Comment on above: Order Comment: Speci men Type: BLOOD SPECIMENOrdering Facility: [facility] Address: [address] [place] [address] Performed By: #### 5 7021-8, 4536-7 ####[facility] [id number] [place] [address] [place] Immature granulocytes/100 WBC (Bld) 0.4 % Normal [facility] Comment on above: Order Comment: Speci men Type: BLOOD SPECIMENOrdering Facility: [facility] Address: [address] [place] [address] Performed By: #### 5 7021-8, 7-7 ####[facility] [id number] [place] [address] [place] Lymphocytes (Bld) [#/Vol] 2.00 10*3/uL Normal 1.00-4.00 [facility] Comment on above: Order Comment: Speci men Type: BLOOD SPECIMENOrdering Facility: [facility] Address: [address] [place] [address] Performed By: #### 5 7021-8, 4536-7 ####[facility] [id number] [place] [address] [place] Lymphocytes/100 WBC (Bld) 25.9 % Normal [facility] Comment on above: Order Comment: Speci men Type: BLOOD SPECIMENOrdering Facility: [facility] Address: [address] [place] [address] Performed By: #### 5 7021-8, 4536-7 ####[facility] [id number] [place] [address] [place] MCH (RBC) [Entitic mass] 29.2 pg Normal 26.0-34.0 [facility] Comment on above: Order Comment: Speci men Type: BLOOD SPECIMENOrdering Facility: [facility] Address: [address] [place] [address] Performed By: #### 5 7021-8, 4536-7 ####[facility] [id number] [place] [address] [place] MCHC (RBC) [Mass/Vol] 32.5 g/dL Normal 30.5-36.0 [facility] Comment on above: Order Comment: Speci men Type: BLOOD SPECIMENOrdering Facility: [facility] Address: [address] [place] [address] Performed By: #### 5 7021-8, 7 ####[facility] [id number] [place] [address] [place] MCV (RBC) [Entitic vol] 89.9 fL Normal 80.0-100.0 [facility] Comment on above: Order Comment: Speci men Type: BLOOD SPECIMENOrdering Facility: [facility] Address: [address] [place] [address] Performed By: #### 5 7021-8, 7 ####[facility] [id number] [place] [address] [place] Monocytes (Bld) [#/Vol] 0.36 10*3/uL Normal <0.87 [facility] Comment on above: Order Comment: Speci men Type: BLOOD SPECIMENOrdering Facility: [facility] Address: [address] [place] [address] Performed By: #### 5 7021-8, 7 ####[facility] [id number] [place] [address] [place] Monocytes/100 WBC (Bld) 4.7 % Normal [facility] Comment on above: Order Comment: Speci men Type: BLOOD SPECIMENOrdering Facility: [facility] Address: [address] [place] [address] Performed By: #### 5 7021-8, 7 ####[facility]CLIA [id number] [place] [id number] [place] Neutrophils (Bld) [#/Vol] 5.26 10*3/uL Normal 1.45-7.50 [facility] Comment on above: Order Comment: Speci men Type: BLOOD SPECIMENOrdering Facility: [facility] Address: [address] [place] [address] Performed By: #### 5 7021-8, 7 ####[facility] [id number] [place] [address] [place] Neutrophils/100 WBC (Bld) 68.1 % Normal [facility] Comment on above: Order Comment: Speci men Type: BLOOD SPECIMENOrdering Facility: [facility] Address: [address] [place] [address] Performed By: #### 5 7021-8, 4537-7 ####[facility] [id number] [place] [address] [place] Nucleated RBC (Bld) [#/Vol] 10*3/uL Normal <0.01 [facility] Comment on above: Order Comment: Speci men Type: BLOOD SPECIMENOrdering Facility: [facility] Address: [address] [place] [address] Performed By: #### 5 7021-8, 4537-7 ####[facility] [id number] [place] [address] [place] Nucleated RBC/100 WBC (Bld) [Ratio] 0.0 /100 WBC Normal [facility] Comment on above: Order Comment: Speci men Type: BLOOD SPECIMENOrdering Facility: [facility] Address: [address] [place] [address] Performed By: #### 5 7021-8, 4537-7 ####[facility] [id number] [place] [address] [place] Platelet mean volume (Bld) [Entitic vol] 9.3 fL Normal 9.0-12.7 [facility] Comment on above: Order Comment: Speci men Type: BLOOD SPECIMENOrdering Facility: [facility] Address: [address] [place] [address] Performed By: #### 5 7021-8, 4537-7 ####[facility]CLIA [id number] [place] [address] [place] Platelets (Bld) [#/Vol] 402 10*3/uL High 150-400 [facility] Comment on above: Order Comment: Speci men Type: BLOOD SPECIMENOrdering Facility: [facility] Address: [address] [place] [address] Performed By: #### 5 7021-8, 4537-7 ####[facility] [id number] [place] [address] [place] RBC (Bld) [#/Vol] 5.06 10*6/uL Normal 3.90-5.20 [facility] Comment on above: Order Comment: Speci men Type: BLOOD SPECIMENOrdering Facility: [facility] Address: [address] [place] [address] Performed By: #### 5 7021-8, 4537-7 ####[facility]CLIA [id number] [place] [address] [place] WBC (Bld) [#/Vol] 7.72 10*3/uL Normal 3.70-11.00 [facility] Comment on above: Order Comment: Speci men Type: BLOOD SPECIMENOrdering Facility: [facility] Address: [address] [place] [address] Performed By: #### 5 7021-8, 4537-7 ####[facility]CLIA [id number] [place] [address] [place] CNOVon 10-16-2024 CNOV Office Visit (KRISWS ) GRICEL PATEL ([id number]) 1985 F Date Time Provider Department 10/16/24 [...] vomiting, or diarrhea or abdominal pain. No IL bleeding or melana : No history of [...] General: Awake, alert, not in acute distress HEAD GRINDER: Answering questions appropriately. No abnormal posturing or positioning. Speech is normal. Strength grossly intact. CN exam, speech, UE and LE motor, reflex, and sensory exam all normal. RESP: Clear lungs bilateral with good air entry, No increased work of br (more content not included)... Normal [facility] CNPNon 10-16-2024 CNPN Telephone (FAMPWS) JORGEGRICEL Olga ([id number]) 1985 F Date Time Provider Department 10/16/24 [...] AM Signed Form has been faxed to [phone]. Allergies As of Date: 10/16/2024 Noted Allergy [...] Status:Closed by CECILE CURRY on 10/18/24 Normal [facility] CRP SerPl-mCncon 10-16-2024 CRP [Mass/Vol] mg/L Normal <0.9 [facility] Comment on above: Order Comment: Speci men Type: BLOOD SPECIMEN [facility] Address: [address] [place] [address] Performed By: #### 5 0190-8, LIPNF, 66520-6, TSHRF #### [facility] CLIA [id number] [address] [place] [address] [place] ESR Westergren method (Bld) [Velocity]on 10-16-2024 ESR (Bld) [Velocity] 20 mm/h [facility] Interpretation and review of laboratory results Normal [facility] ESR (Bld) [Velocity] 20 mm/h Normal 0-20 [facility] Comment on above: Order Comment: Speci men Type: BLOOD SPECIMENOrdering Facility: [facility] Address: [address] [place] [address] Performed By: #### 5 7021-8, 4537-7 ####[facility]CLIA [id number] [place] [address] [place] Magnesium SerPl-mCncon 10-16 Magnesium [Mass/Vol] 2.2 mg/dL Normal 1.7-2.3 [facility] Comment on above: Order Comment: Speci men Type: BLOOD SPECIMEN [facility] Address: [address] [place] [address] Performed By: #### 5 0190-8, LIPNF, 20566-6, TSHRF #### [facility] CLIA [id number] [address] [place] [address] [place] Renal function 2000 panelon 10-16-2024 Albumin [Mass/Vol] 4.4 g/dL Normal 3.9-4.9 [facility] Comment on above: Order Comment: Speci men Type: BLOOD SPECIMEN [facility] Address: [address] [place] [address] Performed By: #### 5 0190-8, LIPNF, 91615-4, TSHRF #### [facility] CLIA [id number] [place] [address] [place] Anion gap [Moles/Vol] 15 mmol/L Normal 8-15 [facility] Comment on above: Order Comment: Speci men Type: BLOOD SPECIMEN [facility] Address: [address] [place] [address] Performed By: #### 5 0190-8, LIPNF, 67473-2, TSHRF #### [facility] CLIA [id number] [address] [place] [address] [place] Calcium [Mass/Vol] 10.3 mg/dL High 8.5-10.2 [facility] Comment on above: Order Comment: Speci men Type: BLOOD SPECIMEN [facility] Address: [address] [place] [address] Performed By: #### 5 0190-8, LIPNF, 56380-6, TSHRF #### [facility] CLIA [id number] [address] [place] [address] [place] Chloride [Moles/Vol] 97 mmol/L Low 98-107 [facility] Comment on above: Order Comment: Speci men Type: BLOOD SPECIMEN [facility] Address: [address] [place] [address] Performed By: #### 5 0190-8, LIPNF, 82994-6, TSHRF #### [facility] CLIA [id number] [address] [place] [address] [place] CO2 [Moles/Vol] 25 mmol/L Normal 22-30 [facility] Comment on above: Order Comment: Speci men Type: BLOOD SPECIMEN [facility] Address: [address] [place] [address] Performed By: #### 5 0190-8, LIPNF, 17438-1, TSHRF #### [facility] CLIA [id number] [address] [place] [address] [place] Creatinine [Mass/Vol] 0.90 mg/dL Normal 0.58-0.96 [facility] Comment on above: Order Comment: Speci men Type: BLOOD SPECIMEN [facility] Address: [address] [place] [address] Performed By: #### 5 0190-8, LIPBRAD, 57496-1, TSHRF #### [facility] CLIA [id number] [address] [place] [address] [place] eGFRcr SerPlBld CKD-EPI 2020 83 mL/min/1.73m??? Normal >=60 [facility] Comment on above: Order Comment: Speci men Type: BLOOD SPECIMEN [facility] Address: [address] [place] [address] Result Comment: Rhea mated Glomerular Filtration Rate [...] GFR. Performed By: #### 5 0190-8, LIPBRAD, 01795-1, TSHRF #### [facility] CLIA [id number] [address] [place] [address] [place] Glucose [Mass/Vol] 111 mg/dL High 74-99 [facility] Comment on above: Order Comment: Speci men Type: BLOOD SPECIMEN [facility] Address: [address] [place] [address] Result Comment: The [place] Diabetes Association (ADA) provides guidance for cutoff [...] Standards of Medical Care in Diabetes 2016, [place] [employer] Association. Diabetes Care. 2016.39(Suppl 1). Performed By: #### 5 0190-8, LIPNF, 40167-2, TSHRF #### [facility] CLIA [id number] [address] [place] [address] [place] Phosphate [Mass/Vol] 3.6 mg/dL Normal 2.7-4.8 [facility] Comment on above: Order Comment: Speci men Type: BLOOD SPECIMEN [facility] Address: [address] [place] [address] Performed By: #### 5 0190-8, LIPNF, 54351-0, TSHRF #### [facility] CLIA [id number] [address] [place] [address] [place] Potassium [Moles/Vol] 4.4 mmol/L Normal 3.7-5.1 [facility] Comment on above: Order Comment: Speci men Type: BLOOD SPECIMEN [facility] Address: [address] [place] [address] Performed By: #### 5 0190-8, LIPNF, 73326-1, TSHRF #### [facility] CLIA [id number] [address] [place] [address] [place] Sodium [Moles/Vol] 137 mmol/L Normal 136-144 [facility] Comment on above: Order Comment: Speci men Type: BLOOD SPECIMEN [facility] Address: [address] [place] [address] Performed By: #### 5 0190-8, LIPNF, 34812-5, TSHRF #### [facility] CLIA [id number] [address] [place] [address] [place] Urea nitrogen [Mass/Vol] 14 mg/dL Normal 7-21 [facility] Comment on above: Order Comment: Speci men Type: BLOOD SPECIMEN [facility] Address: [address] [place] [address] Performed By: #### 5 0190-8, LIPNF, 64634-3, TSHRF #### [facility] CLIA [id number] [address] [place] [address] [facility]24 RIVKA Telephone ([id number]) GRICEL PATEL ([id number]) 1985 F Date Time Provider Department 10/10/24 MAYELA TOURE [id number] During your visit today, we recorded the [...] to scheduling to cancel appointments. Gloria Crowell APRN.MEDICAL CARE MANAGER October 11, 2024 11:35 AM Allergies As [...] Encounter Status:Closed by MAYELA TOURE [facility] 10[facility]10/[facility] GRICEL PATEL ([id number]) 1985 F Date Time Provider Department 10/10/24 [...] [R07.1] Order(s):CTA CHEST (NONGATED) W IVCON PE [[id number]] Order #: [id number] FUTURE iv contrast (will be provided with [...] Status:Closed by MELVI SWANSON on 10/10/24 Normal [facility] CTA CHEST (NON GATED) W IVCO N PEon 10-10-2024 CTA CHEST (NON GATED) W IVCON PE * * *Final Report* * * DATE OF EXAM: Oct 10 2024 3:08PM [facility] 0564 - CTA CHEST (NON GATED) [...] No new consolidation or left pleural effusion. Client Services Vice President: YAHAIRA Transcribe Date/Time: Oct 10 2024 3:14P Dictated by : BETH COOK MD This examination was interpreted and the report reviewed and electronically signed by: BETH COOK MD on Oct 10 2024 3:24PM EST [id number] Normal [facility] CTA Pulmonary arteries for p ulmonary embolus W contrast Mary 10-10-[address]: [address] evidence of pulmonary embolism, no signs of right heart strain. 2. Trace right pleural effusion and underlying linear hypoventilation/scarri ng in the right lung base, possibly partially treated or early inflammation as suggested on the radiograph of 10/03. 3. No new consolidation or left pleural effusion. Client Services Vice President: YAHAIRA Transcribe Date/Time: Oct 10 2024 3:14P Dictated by : BETH COOK MD This examination was interpreted and the report reviewed and electronically signed by: BETH COOK MD on Oct 10 2024 3:24PM [facility] DIVISION OF RADIOLOGY * * *Final Report* * * DATE OF EXAM: Oct 10 2024 3:08PM [facility] 0564 - CTA CHEST (NON GATED) [...] No additional findings. DIVISION OF RADIOLOGY Provider, [facility] - 10/10/2024 * * *Final Report* * * DATE OF EXAM: Oct 10 2024 3:08PM [facility] 0564 - CTA CHEST (NON GATED) [...] No new consolidation or left pleural effusion. Client Services Vice President: YAHAIRA Transcribe Date/Time: Oct 10 2024 3:14P Dictated by : BETH COOK MD This examination was interpreted and the report reviewed and electronically signed by: BETH COOK MD on Oct 10 2024 3:24PM EST [facility] Radiology Study observation (narrative) [facility] CTA Pulmonary arteries for p ulmonary embolus W contrast IVOrdered By: Ccf Provider on 10-10-2024 [facility] CBC W Auto Differential pane l (Bld)on 10-09-2024 Basophils (Bld) [#/Vol] 0.04 10*3/uL [facility] Basophils/100 WBC (Bld) 0.6 % [facility] Differential cell count method Nom (Bld) Auto [facility] Eosinophils (Bld) [#/Vol] 0.04 10*3/uL [facility] Eosinophils/100 WBC (Bld) 0.6 % [facility] Erythrocyte distribution width (RBC) [Ratio] 13.7 % 11.5 - 15.0 % [facility] Hematocrit (Bld) [Volume fraction] 38.4 % 36.0 - 46.0 % [facility] Hemoglobin (Bld) [Mass/Vol] 12.1 g/dL 11.5 - 15.5 g/dL [facility] Immature granulocytes (Bld) [#/Vol] [facility] Immature granulocytes/100 WBC (Bld) 0.1 % [facility] Lymphocytes (Bld) [#/Vol] 2.04 10*3/uL [facility] Lymphocytes/100 WBC (Bld) 30.2 % [facility] MCH (RBC) [Entitic mass] 29.7 pg 26.0 - 34.0 pg [facility] MCHC (RBC) [Mass/Vol] 31.5 g/dL 30.5 - 36.0 g/dL [facility] MCV (RBC) [Entitic vol] 94.3 fL 80.0 - 100.0 fL [facility] Monocytes (Bld) [#/Vol] 0.43 10*3/uL [facility] Monocytes/100 WBC (Bld) 6.4 % [facility] Neutrophils (Bld) [#/Vol] 4.19 10*3/uL [facility] Neutrophils/100 WBC (Bld) 62.1 % [facility] Nucleated RBC (Bld) [#/Vol] [facility] Nucleated RBC/100 WBC (Bld) [Ratio] 0 % /100 WBC [facility] Platelet mean volume (Bld) [Entitic vol] 9.9 fL 9.0 - 12.7 fL [facility] Platelets (Bld) [#/Vol] 348 10*3/uL [facility] RBC (Bld) [#/Vol] 4.07 10*6/uL 3.90 - 5.2 0 m/uL [facility] WBC (Bld) [#/Vol] 6.75 10*3/uL [facility] Basophils (Bld) [#/Vol] 0.04 10*3/uL Normal <0.11 [facility] Comment on above: Order Comment: Speci men Type: BLOOD SPECIMEN [facility] Facility: [facility] Address: [address] [place] [address] Performed By: #### 5 5454-3 #### [facility] CLIA [id number] [address] [place] [address] [place] Basophils/100 WBC (Bld) 0.6 % Normal [facility] Comment on above: Order Comment: Speci men Type: BLOOD SPECIMEN Ordering Facility: [facility] Address: [address] [place] [address] Performed By: #### 5 5454-3 #### [facility] CLIA [id number] [address] [place] [address] [place] Differential cell count method Nom (Bld) Auto Normal [facility] Comment on above: Order Comment: Speci men Type: BLOOD SPECIMEN [facility] Facility: [facility] Address: [address] [place] [address] Performed By: #### 5 5454-3 #### [facility] CLIA [id number] [address] [place] [address] [place] Eosinophils (Bld) [#/Vol] 0.04 10*3/uL Normal <0.46 [facility] Comment on above: Order Comment: Speci men Type: BLOOD SPECIMEN [facility]ing Facility: [facility] Address: [address] [place] [address] Performed By: #### 5 5454-3 #### [facility] CLIA [id number] [address] [place] [address] [place] Eosinophils/100 WBC (Bld) 0.6 % Normal [facility] Comment on above: Order Comment: Speci men Type: BLOOD SPECIMEN Ordering Facility: [facility] Address: [address] [place] [address] Performed By: #### 5 5454-3 #### [facility] CLIA [id number] [address] [place] [address] [place] Erythrocyte distribution width (RBC) [Ratio] 13.7 % Normal 11.5-15.0 [facility] Comment on above: Order Comment: Speci men Type: BLOOD SPECIMEN Ordering Facility: [facility] Address: [address] [place] [address] Performed By: #### 5 5454-3 #### [facility] CLIA [id number] [address] [place] [address] [place] Hematocrit (Bld) [Volume fraction] 38.4 % Normal 36.0-46.0 [facility] Comment on above: Order Comment: Speci men Type: BLOOD SPECIMEN Ordering Facility: [facility] Address: [address] [place] [address] Performed By: #### 5 5454-3 #### [facility] CLIA [id number] [address] [place] [address] [place] Hemoglobin (Bld) [Mass/Vol] 12.1 g/dL Normal 11.5-15.5 [facility] Comment on above: Order Comment: Speci men Type: BLOOD SPECIMEN Ordering Facility: [facility] Address: [address] [place] [address] Performed By: #### 5 5454-3 #### [facility] CLIA [id number] [address] [place] [address] [place] Immature granulocytes (Bld) [#/Vol] 10*3/uL Normal <0.10 [facility] Comment on above: Order Comment: Speci men Type: BLOOD SPECIMEN Ordering Facility: [facility] Address: [address] [place] [address] Performed By: #### 5 5454-3 #### [facility] CLIA [id number] [address] [place] [address] [place] Immature granulocytes/100 WBC (Bld) 0.1 % Normal [facility] Comment on above: Order Comment: Speci men Type: BLOOD SPECIMEN Ordering Facility: [facility] Address: [address] [place], [place] [address] Performed By: #### 5 5454-3 #### [facility] CLIA [id number] [address] [place] [address] [place] Lymphocytes (Bld) [#/Vol] 2.04 10*3/uL Normal 1.00-4.00 [facility] Comment on above: Order Comment: Speci men Type: BLOOD SPECIMEN Ordering Facility: [facility] Address: [address] [place] [address] Performed By: #### 5 5454-3 #### [facility] CLIA [id number] [address] [place] [address] [place] Lymphocytes/100 WBC (Bld) 30.2 % Normal [facility] Comment on above: Order Comment: Speci men Type: BLOOD SPECIMEN Ordering Facility: [facility] Address: [address] [place] [address] Performed By: #### 5 5454-3 #### [facility] CLIA [id number] [address] [place] [address] [place] MCH (RBC) [Entitic mass] 29.7 pg Normal 26.0-34.0 [facility] Comment on above: Order Comment: Speci men Type: BLOOD SPECIMEN Ordering Facility: [facility] Address: [address] [place] [address] Performed By: #### 5 5454-3 #### [facility] CLIA [id number] [address] [place] [address] [place] MCHC (RBC) [Mass/Vol] 31.5 g/dL Normal 30.5-36.0 [facility] Comment on above: Order Comment: Speci men Type: BLOOD SPECIMEN Ordering Facility: [facility] Address: [address] [place] [address] Performed By: #### 5 5454-3 #### [facility] CLIA [id number] [address] [place] [address] [place] MCV (RBC) [Entitic vol] 94.3 fL Normal 80.0-100.0 [facility] Comment on above: Order Comment: Speci men Type: BLOOD SPECIMEN Ordering Facility: [facility] Address: [address] [place] [address] Performed By: #### 5 5454-3 #### [facility] CLIA [id number] [address] [place] [address] [place] Monocytes (Bld) [#/Vol] 0.43 10*3/uL Normal <0.87 [facility] Comment on above: Order Comment: Speci men Type: BLOOD SPECIMEN Ordering Facility: [facility] Address: [address] [place] [address] Performed By: #### 5 5454-3 #### [facility] CLIA [id number] [address] [place] [address] [place] Monocytes/100 WBC (Bld) 6.4 % Normal [facility] Comment on above: Order Comment: Speci men Type: BLOOD SPECIMEN Ordering Facility: [facility] Address: [address] [place] [address] Performed By: #### 5 5454-3 #### [facility] CLIA [id number] [address] [place] [address] [place] Neutrophils (Bld) [#/Vol] 4.19 10*3/uL Normal 1.45-7.50 [facility] Comment on above: Order Comment: Speci men Type: BLOOD SPECIMEN Ordering Facility: [facility] Address: [address] [place] [address] Performed By: #### 5 5454-3 #### [facility] CLIA [id number] [address] [place] [address] [place] Neutrophils/100 WBC (Bld) 62.1 % Normal [facility] Comment on above: Order Comment: Speci men Type: BLOOD SPECIMEN Ordering Facility: [facility] Address: [address] [place] [address] Performed By: #### 5 5454-3 #### [facility] CLIA [id number] [address] [place] [address] [place] Nucleated RBC (Bld) [#/Vol] 10*3/uL Normal <0.01 [facility] Comment on above: Order Comment: Speci men Type: BLOOD SPECIMEN Ordering Facility: [facility] Address: [address] [place] [address] Performed By: #### 5 5454-3 #### [facility] CLIA [id number] [address] [place] [address] [place] Nucleated RBC/100 WBC (Bld) [Ratio] 0.0 /100 WBC Normal [facility] Comment on above: Order Comment: Speci men Type: BLOOD SPECIMEN Ordering Facility: [facility] Address: [address] [place] [address] Performed By: #### 5 5454-3 #### [facility] CLIA [id number] [address] [place] [address] [place] Platelet mean volume (Bld) [Entitic vol] 9.9 fL Normal 9.0-12.7 [facility] Comment on above: Order Comment: Speci men Type: BLOOD SPECIMEN Ordering Facility: [facility] Address: [address] [place] [address] Performed By: #### 5 5454-3 #### [facility] CLIA [id number] [address] [place] [address] [place] Platelets (Bld) [#/Vol] 348 10*3/uL Normal 150-400 [facility] Comment on above: Order Comment: Speci men Type: BLOOD SPECIMEN Ordering Facility: [facility] Address: [address] [place] [address] Performed By: #### 5 5454-3 #### [facility] CLIA [id number] [address] [place] [address] [place] RBC (Bld) [#/Vol] 4.07 10*6/uL Normal 3.90-5.20 [facility] Comment on above: Order Comment: Speci men Type: BLOOD SPECIMEN Ordering Facility: [facility] Address: [address] [place] [address] Performed By: #### 5 5454-3 #### [facility] CLIA [id number] [address] [place] [address] [place] WBC (Bld) [#/Vol] 6.75 10*3/uL Normal 3.70-11.00 [facility] Comment on above: Order Comment: Speci men Type: BLOOD SPECIMEN Ordering Facility: [facility] Address: [address] [place] [address] Performed By: #### 5 5454-3 #### [facility] CLIA [id number] [address] [place] [address] [place] CNOVon 10-09-2024 CNOV Office Visit (FAMPWS ) GRICEL PATEL ([id number]) 1985 F Date Time Provider Department 10/09/24 3:00 PM [facility] During your visit today, we recorded [...] vomiting, or diarrhea or abdominal pain. No IL bleeding or melana : No history of [...] acute distress. 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 No abnormal posturing or [...] appreciated. Skin (more content not included)... Normal [facility] CRP [Mass/Vol] 1.2 mg/dL High <0.9 [facility] Comment on above: Order Comment: Speci men Type: BLOOD SPECIMENOrdering Facility: [facility] Address: [address] [place] [address] Performed By: #### 2 4323-8, 0317-1, , 1987-07 ####[facility] [id number] [address] [address] [place] Comprehensive metabolic 2000 panelon 10-09-2024 Albumin [Mass/Vol] 4.0 g/dL Normal 3.9-4.9 [facility] Comment on above: Order Comment: Speci men Type: BLOOD SPECIMENOrdering Facility: [facility] Address: [address] [place], [place] [address] Performed By: #### 2 4323-8, 2776-03, , 1987-07 ####[facility] [id number] [address] [address] [place] ALP [Catalytic activity/Vol] 79 U/L Normal 34-123 [facility] Comment on above: Order Comment: Speci men Type: BLOOD SPECIMENOrdering Facility: [facility] Address: [address] [place], [place] [address] Performed By: #### 2 4323-8, 2776-03, , 1987-07 ####[facility] [id number] [address] [address] [place] ALT [Catalytic activity/Vol] 15 U/L Normal 7-38 [facility] Comment on above: Order Comment: Speci men Type: BLOOD SPECIMENOrdering Facility: [facility] Address: [address] [place] [address] Performed By: #### 2 4323-8, 27709-24, , 1987-07 ####[facility] [id number] [address] [address] [place] Anion gap [Moles/Vol] 11 mmol/L Normal 8-15 [facility] Comment on above: Order Comment: Speci men Type: BLOOD SPECIMENOrdering Facility: [facility] Address: [address] [place] [address] Performed By: #### 2 4323-8, 2776-03, 1987-07 ####[facility] [id number] [address] [address] [place] AST [Catalytic activity/Vol] 14 U/L Normal 13-35 [facility] Comment on above: Order Comment: Speci men Type: BLOOD SPECIMENOrdering Facility: [facility] Address: [address] [place], [place] [address] Performed By: #### 2 4323-8, 2776-03, , 1987-07 ####[facility] [id number] [address] [address] [place] Bilirubin [Mass/Vol] mg/dL Low 0.2-1.3 [facility] Comment on above: Order Comment: Speci men Type: BLOOD SPECIMENOrdering Facility: [facility] Address: [address] [place], [place] [address] Performed By: #### 2 4323-8, 2776-03, , 1987-07 ####[facility] [id number] [address] [address] [place] Calcium [Mass/Vol] 9.6 mg/dL Normal 8.5-10.2 [facility] Comment on above: Order Comment: Speci men Type: BLOOD SPECIMENOrdering Facility: [facility] Address: [address] [place], [place] [address] Performed By: #### 2 4323-8, 2776-03, , 1987-07 ####[facility] [id number] [address] [address] [place] Chloride [Moles/Vol] 104 mmol/L Normal 98-107 [facility] Comment on above: Order Comment: Speci men Type: BLOOD SPECIMENOrdering Facility: [facility] Address: [address] [place], [place] [address] Performed By: #### 2 4323-8, 2776-03, 1987-07 ####[facility] [id number] [address] [address] [place] CO2 [Moles/Vol] 28 mmol/L Normal 22-30 [facility] Comment on above: Order Comment: Speci men Type: BLOOD SPECIMENOrdering Facility: [facility] Address: [address] [place], [place] [address] Performed By: #### 2 4323-8, 2776-03, , 1987-07 ####[facility] [id number] [address] [address] [place] Creatinine [Mass/Vol] 0.79 mg/dL Normal 0.58-0.96 [facility] Comment on above: Order Comment: Speci men Type: BLOOD SPECIMENOrdering Facility: [facility] Address: [address] [place] [address] Performed By: #### 2 4323-8, 2776-03, , 1987-07 ####[facility] [id number] [address] [address] [place] eGFRcr SerPlBld CKD-EPI 2020 97 mL/min/1.73m??? Normal >=60 [facility] Comment on above: Order Comment: Speci men Type: BLOOD SPECIMENOrdering Facility: [facility] Address: [address] [place], [place] [address] Result Comment: Rhea mated Glomerular Filtration Rate [...] By: #### 2 4323-8, 2776-03, , 1987-07 ####[facility] [id number] [address] [address] [place] Glucose [Mass/Vol] 71 mg/dL Low 74-99 [facility] Comment on above: Order Comment: Speci men Type: BLOOD SPECIMENOrdering Facility: [facility] Address: [address] [place] [id number] Result Comment: The [place] [employer] Association (ADA) provides guidance for cutoff [...] Standards of Medical Care in Diabetes 2016, [place] [employer]. Diabetes Care. 2016.39(Suppl 1). Performed By: #### 2 4323-8, 277-, , 1987-07 ####[facility] [id number] [place] [id number] [place] Potassium [Moles/Vol] 4.4 mmol/L Normal 3.7-5.1 [facility] Comment on above: Order Comment: Speci men Type: BLOOD SPECIMENOrdering Facility: [facility] Address: [address] [place] [address] Performed By: #### 2 4323-8, 27709-24, , 1987-07 ####[facility] [id number] [place] [id number] [place] Protein [Mass/Vol] 7.5 g/dL Normal 6.3-8.0 [facility] Comment on above: Order Comment: Speci men Type: BLOOD SPECIMENOrdering Facility: [facility] Address: [address] [place] [address] Performed By: #### 2 4323-8, 27709-24, , 1987-07 ####[facility] [id number] [address] [address] [place] Sodium [Moles/Vol] 143 mmol/L Normal 136-144 [facility] Comment on above: Order Comment: Speci men Type: BLOOD SPECIMENOrdering Facility: [facility] Address: [address] [place], [place] [address] Performed By: #### 2 4323-8, 2777-, , 1987-07 ####[facility] [id number] [address] [address] [place] Urea nitrogen [Mass/Vol] 10 mg/dL Normal 7-21 [facility] Comment on above: Order Comment: Speci men Type: BLOOD SPECIMENOrdering Facility: [facility] Address: [address] [place], [place] [address] Performed By: #### 2 4323-8, 2777-, , 1987-07 ####[facility] [id number] [address] [address] [place] ESR Westergren method (Bld) [Velocity]on 10-09-2024 ESR (Bld) [Velocity] 40 mm/h High 0-20 [facility] Comment on above: Order Comment: Speci men Type: BLOOD SPECIMEN [facility] Address: [address] [place], [place] [address] Performed By: #### 5 5454-3 #### [facility] CLIA [id number] [address] [place] [address] [place] Magnesium SerPl-mCncon 10-09 Magnesium [Mass/Vol] 2.1 mg/dL Normal 1.7-2.3 [facility] Comment on above: Order Comment: Speci men Type: BLOOD SPECIMENOrdering Facility: [facility] Address: [address] [place], [place] [address] Performed By: #### 2 4323-8, 2777-1, , 1987-07 ####[facility] [id number] [place] [id number] [place] Phosphate SerPl-mCncon 10-09 Phosphate [Mass/Vol] 3.1 mg/dL Normal 2.7-4.8 [facility] Comment on above: Order Comment: Speci men Type: BLOOD SPECIMENOrdering Facility: [facility] Address: [address] [place] [address] Performed By: #### 2 4323-8, 2777-1, , 1987-07 ####[facility] [id number] [place] [id number] [place] XR CHEST 2V FRONTAL/LATon [...] right pleural effusion with subjacent bandlike opacity. Client Services Vice President: PSCB Transcribe Date/Time: Oct 09 2024 4:18P Dictated by : KAMI HANNON MD This examination was interpreted and the report reviewed and electronically signed by: KAMI HANNON MD on Oct 09 2024 4:19PM EST [id number] Normal [facility] XR Chest PA and Lateralon IMPRESSION: Stable small right pleural effusion with subjacent bandlike opacity. Client Services Vice President: YAHAIRA Transcribe Date/Time: Oct 09 2024 4:18P Dictated by : KAMI HANNON MD This examination was interpreted and the report reviewed and electronically signed by: KAMI HANNON MD on Oct 09 2024 4:19PM [facility] DIVISION OF RADIOLOGY * * *Final [...] soft tissues: Unremarkable. DIVISION OF RADIOLOGY Provider, [facility] - 10/09/2024 * * *Final Report* [...] right pleural effusion with subjacent bandlike opacity. Client Services Vice President: YAHAIRA Transcribe Date/Time: Oct 09 2024 4:18P Dictated by : KAMI HANNON MD This examination was interpreted and the report reviewed and electronically signed by: KAMI HANNON MD on Oct 09 2024 4:19PM EST [facility] Radiology Study observation (narrative) [facility] XR Chest PA and LateralOrder ed By: Ccf Provider on 10-09-2024 [facility] CNPNon 10-07-2024 CNPN Telephone (FAMPWS) GRICEL PATEL ([id number]) 1985 F Date Time Provider Department [facility] visit today, we recorded the following information about you: Cecile Curry LPN 10/07/2024 10:08 AM Addendum Order for the bilateral jugular artery needs changed to vascular lab STAT and will be completed at [facility]. Stacie Melo 10/07/2024 11:10 AM Signed Spoke with staff at [facility]. They can do the jugular ultrasound but not the effusion ultrasound. [facility] can do the effusion ultrasound. Would [...] Status:Closed by STACIE MELO on 10/10/24 Normal [facility] DVT UPPER BILon 5 DVT UPPER NAINA [...] of the left and right upper extremity. Client Services Vice President: YAHAIRA Transcribe Date/Time: Oct 08 2024 1:00P Dictated by : KHRIS RTOH MD This examination was interpreted and the report reviewed and electronically signed by: KHRIS ROTH MD on Oct 08 2024 1:01PM EST [id number] Normal [facility] CBC W Auto Differential pane l (Bld)on 10-03-2024 Basophils (Bld) [#/Vol] 0.03 10*3/uL Normal <0.11 [facility] Comment on above: Order Comment: Speci men Type: BLOOD SPECIMEN [facility] [facility] Address: [address] [place] [address] Performed By: #### 5 0190-8, LIPNF, 76535-7, TSHRF #### [facility] CLIA [id number] [address] [place] [address] [place] Basophils/100 WBC (Bld) 0.5 % Normal [facility] Comment on above: Order Comment: Speci men Type: BLOOD SPECIMEN Ordering Facility: [facility] Address: [address] [place] [address] Performed By: #### 5 0190-8, LIPNF, 92122-6, TSHRF #### [facility] CLIA [id number] [address] [place] [address] [place] Differential cell count method Nom (Bld) Auto Normal [facility] Comment on above: Order Comment: Speci men Type: BLOOD SPECIMEN [facility]ing Facility: [facility] Address: [address] [place] [address] Performed By: #### 5 0190-8, LIPNF, 24393-1, TSHRF #### [facility] CLIA [id number] [address] [place] [address] [place] Eosinophils (Bld) [#/Vol] 0.14 10*3/uL Normal <0.46 [facility] Comment on above: Order Comment: Speci men Type: BLOOD SPECIMEN [facility]ing Facility: [facility] Address: [address] [place] [address] Performed By: #### 5 0190-8, LIPNF, 08840-3, TSHRF #### [facility] CLIA [id number] [address] [place] [address] [place] Eosinophils/100 WBC (Bld) 2.5 % Normal [facility] Comment on above: Order Comment: Speci men Type: BLOOD SPECIMEN [facility]ing Facility: [facility] Address: [address] [place] [address] Performed By: #### 5 0190-8, LIPNF, 53621-7, TSHRF #### [facility] CLIA [id number] [address] [place] [address] [place] Erythrocyte distribution width (RBC) [Ratio] 13.6 % Normal 11.5-15.0 [facility] Comment on above: Order Comment: Speci men Type: BLOOD SPECIMEN [facility]ing Facility: [facility] Address: [address] [place] [address] Performed By: #### 5 0190-8, LIPNF, 77838-0, TSHRF #### [facility] CLIA [id number] [address] [place] [address] [place] Hematocrit (Bld) [Volume fraction] 35.6 % Low 36.0-46.0 [facility] Comment on above: Order Comment: Speci men Type: BLOOD SPECIMEN [facility]ing Facility: [facility] Address: [address] [place] [address] Performed By: #### 5 0190-8, LIPNF, 35474-9, TSHRF #### [facility] CLIA [id number] [address] [place] [address] [place] Hemoglobin (Bld) [Mass/Vol] 11.5 g/dL Normal 11.5-15.5 [facility] Comment on above: Order Comment: Speci men Type: BLOOD SPECIMEN [facility]ing Facility: [facility] Address: [address] [place] [address] Performed By: #### 5 0190-8, LIPNF, 74043-9, TSHRF #### [facility] CLIA [id number] [address] [place] [address] [place] Immature granulocytes (Bld) [#/Vol] 10*3/uL Normal <0.10 [facility] Comment on above: Order Comment: Speci men Type: BLOOD SPECIMEN Ordering Facility: [facility] Address: [address] [place] [address] Performed By: #### 5 0190-8, LIPNF, 55078-7, TSHRF #### [facility] CLIA [id number] [address] [place] [address] [place] Immature granulocytes/100 WBC (Bld) 0.2 % Normal [facility] Comment on above: Order Comment: Speci men Type: BLOOD SPECIMEN Ordering Facility: [facility] Address: [address] [place] [address] Performed By: #### 5 0190-8, LIPNF, 14783-5, TSHRF #### [facility] CLIA [id number] [address] [place] [address] [place] Lymphocytes (Bld) [#/Vol] 1.89 10*3/uL Normal 1.00-4.00 [facility] Comment on above: Order Comment: Speci men Type: BLOOD SPECIMEN [facility]ing Facility: [facility] Address: [address] [place] [address] Performed By: #### 5 0190-8, LIPNF, 95399-4, TSHRF #### [facility] CLIA [id number] [address] [place] [address] [place] Lymphocytes/100 WBC (Bld) 33.2 % Normal [facility] Comment on above: Order Comment: Speci men Type: BLOOD SPECIMEN Ordering Facility: [facility] Address: [address] [place] [address] Performed By: #### 5 0190-8, LIPNF, 06056-4, TSHRF #### [facility] CLIA [id number] [address] [place] [address] [place] MCH (RBC) [Entitic mass] 29.3 pg Normal 26.0-34.0 [facility] Comment on above: Order Comment: Speci men Type: BLOOD SPECIMEN [facility]ing Facility: [facility] Address: [address] [place] [address] Performed By: #### 5 0190-8, LIPNF, 50209-5, TSHRF #### [facility] CLIA [id number] [address] [place] [address] [place] MCHC (RBC) [Mass/Vol] 32.3 g/dL Normal 30.5-36.0 [facility] Comment on above: Order Comment: Speci men Type: BLOOD SPECIMEN Ordering Facility: [facility] Address: [address] [place] [address] Performed By: #### 5 0190-8, LIPNF, 30991-6, TSHRF #### [facility] CLIA [id number] [address] [place] [address] [place] MCV (RBC) [Entitic vol] 90.8 fL Normal 80.0-100.0 [facility] Comment on above: Order Comment: Speci men Type: BLOOD SPECIMEN Ordering Facility: [facility] Address: [address] [place] [address] Performed By: #### 5 0190-8, LIPNF, 14095-2, TSHRF #### [facility] CLIA [id number] [address] [place] [address] [place] Monocytes (Bld) [#/Vol] 0.36 10*3/uL Normal <0.87 [facility] Comment on above: Order Comment: Speci men Type: BLOOD SPECIMEN Ordering Facility: [facility] Address: [address] [place], [place] [address] Performed By: #### 5 0190-8, LIPNF, 41338-8, TSHRF #### [facility] CLIA [id number] [address] [place] [address] [place] Monocytes/100 WBC (Bld) 6.3 % Normal [facility] Comment on above: Order Comment: Speci men Type: BLOOD SPECIMEN Ordering Facility: [facility] Address: [address] [place] [address] Performed By: #### 5 0190-8, LIPNF, 25375-9, TSHRF #### [facility] CLIA [id number] [address] [place] [address] [place] Neutrophils (Bld) [#/Vol] 3.27 10*3/uL Normal 1.45-7.50 [facility] Comment on above: Order Comment: Speci men Type: BLOOD SPECIMEN Ordering Facility: [facility] Address: [address] [place] [address] Performed By: #### 5 0190-8, LIPNF, 60535-6, TSHRF #### [facility] CLIA [id number] [address] [place] [address] [place] Neutrophils/100 WBC (Bld) 57.3 % Normal [facility] Comment on above: Order Comment: Speci men Type: BLOOD SPECIMEN Ordering Facility: [facility] Address: [address] [place] [address] Performed By: #### 5 0190-8, LIPNF, 03100-9, TSHRF #### [facility] CLIA [id number] [address] [place] [address] [place] Nucleated RBC (Bld) [#/Vol] 10*3/uL Normal <0.01 [facility] Comment on above: Order Comment: Speci men Type: BLOOD SPECIMEN Ordering Facility: [facility] Address: [address] [place] [address] Performed By: #### 5 0190-8, LIPNF, 90835-7, TSHRF #### [facility] CLIA [id number] [address] [place] [address] [place] Nucleated RBC/100 WBC (Bld) [Ratio] 0.0 /100 WBC Normal [facility] Comment on above: Order Comment: Speci men Type: BLOOD SPECIMEN [facility]ing Facility: [facility] Address: [address] [place] [address] Performed By: #### 5 0190-8, LIPNF, 80169-2, TSHRF #### [facility] CLIA [id number] [address] [place] [address] [place] Platelet mean volume (Bld) [Entitic vol] 8.9 fL Low 9.0-12.7 [facility] Comment on above: Order Comment: Speci men Type: BLOOD SPECIMEN Ordering Facility: [facility] Address: [address] [place] [address] Performed By: #### 5 0190-8, LIPNF, 21990-8, TSHRF #### [facility] CLIA [id number] [address] [place] [address] [place] Platelets (Bld) [#/Vol] 310 10*3/uL Normal 150-400 [facility] Comment on above: Order Comment: Speci men Type: BLOOD SPECIMEN Ordering Facility: [facility] Address: [address] [place] [address] Performed By: #### 5 0190-8, LIPNF, 01564-4, TSHRF #### [facility] CLIA [id number] [address] [place] [address] [place] RBC (Bld) [#/Vol] 3.92 10*6/uL Normal 3.90-5.20 [facility] Comment on above: Order Comment: Speci men Type: BLOOD SPECIMEN Ordering Facility: [facility] Address: [address] [place] [address] Performed By: #### 5 0190-8, LIPNF, 48873-2, TSHRF #### [facility] CLIA [id number] [address] [place] [address] [place] WBC (Bld) [#/Vol] 5.70 10*3/uL Normal 3.70-11.00 [facility] Comment on above: Order Comment: Speci men Type: BLOOD SPECIMEN [facility]ing Facility: [facility] Address: [address] [place] [address] Performed By: #### 5 0190-8, LIPNF, 29828-0, TSHRF #### [facility] CLIA [id number] [address] [place] [address] [place] CNPNon 10-03-2024 [facility]NP[facility] Telephone (FAMPWS) GRICEL PATEL ([id number]) 1985 F Date Time Provider Department 10/03/24 MELVI SWANSON [facility] During your visit today, we recorded the [...] unspecified type [R53.83] Order(s): CHEST WALL/SOFT TISSUE [[id number]] Order #: [id number] FUTURE [facility] [[id number]] Order #: [id number] FUTURE Prescriptions as of 10/04/2024 - amoxicillin-clavulanat [...] Encounter Status:Closed by MELVI SWANSON on 10/03/24 [facility] Telephone (FAMPWS) GRICEL PATEL ([id number]) 1985 F Date Time Provider Department 10/03/24 [...] Status:Closed by SKY MELVI on 10/03/24 Normal [facility] CRP SerPl-mCncon 10-03-2024 CRP [Mass/Vol] mg/L Normal <0.9 [facility] Comment on above: Order Comment: Speci men Type: BLOOD SPECIMENOrdering Facility: [facility] Address: [address] [place] [address] Performed By: #### 1 988-5 ####[facility] [id number] [place] [address] [place] Comprehensive metabolic 2000 panelon 10-03-2024 Albumin [Mass/Vol] 3.7 g/dL Low 3.9-4.9 [facility] Comment on above: Order Comment: Speci men Type: BLOOD SPECIMEN Ordering Facility: [facility] Address: [address] [place] [address] Performed By: #### 5 5454-3 #### [facility] CLIA [id number] [address] [place], [place] [address] [place] ALP [Catalytic activity/Vol] 78 U/L Normal 34-123 [facility] Comment on above: Order Comment: Speci men Type: BLOOD SPECIMEN [facility]ing Facility: [facility] Address: [address] [place] [address] Performed By: #### 5 5454-3 #### [facility] CLIA [id number] [address] [place], [place] [address] [place] ALT [Catalytic activity/Vol] 31 U/L Normal 7-38 [facility] Comment on above: Order Comment: Speci men Type: BLOOD SPECIMEN [facility]ing Facility: [facility] Address: [address] [place] [address] Performed By: #### 5 5454-3 #### [facility] CLIA [id number] [address] [place] [address] [place] Anion gap [Moles/Vol] 13 mmol/L Normal 8-15 [facility] Comment on above: Order Comment: Speci men Type: BLOOD SPECIMEN [facility]ing Facility: [facility] Address: [address] [place] [address] Performed By: #### 5 5454-3 #### [facility] CLIA [id number] [address] [place] [address] [place] AST [Catalytic activity/Vol] 28 U/L Normal 13-35 [facility] Comment on above: Order Comment: Speci men Type: BLOOD SPECIMEN [facility]ing Facility: [facility] Address: [address] [place], [place] [address] Performed By: #### 5 5454-3 #### [facility] CLIA [id number] [address] [place], [place] [address] [place] Bilirubin [Mass/Vol] 0.3 mg/dL Normal 0.2-1.3 [facility] Comment on above: Order Comment: Speci men Type: BLOOD SPECIMEN [facility]ing Facility: [facility] Address: [address] [place], [place] [address] Performed By: #### 5 5454-3 #### [facility] CLIA [id number] [address] [place], [place] [address] [place] Calcium [Mass/Vol] 9.8 mg/dL Normal 8.5-10.2 [facility] Comment on above: Order Comment: Speci men Type: BLOOD SPECIMEN [facility]ing Facility: [facility] Address: [address] [place] [address] Performed By: #### 5 5454-3 #### [facility] CLIA [id number] [address] [place] [address] [place] Chloride [Moles/Vol] 101 mmol/L Normal 98-107 [facility] Comment on above: Order Comment: Speci men Type: BLOOD SPECIMEN [facility] Facility: [facility] Address: [address] [place] [address] Performed By: #### 5 5454-3 #### [facility] CLIA [id number] [address] [place] [address] [place] CO2 [Moles/Vol] 27 mmol/L Normal 22-30 [facility] Comment on above: Order Comment: Speci men Type: BLOOD SPECIMEN [facility] Facility: [facility] Address: [address] [place], [place] [address] Performed By: #### 5 5454-3 #### [facility] CLIA [id number] [address] [place], [place] [address] [place] Creatinine [Mass/Vol] 0.94 mg/dL Normal 0.58-0.96 [facility] Comment on above: Order Comment: Speci men Type: BLOOD SPECIMEN [facility] Facility: [facility] Address: [address] [place], [place] [address] Performed By: #### 5 5454-3 #### [facility] CLIA [id number] [address] [place] [address] [place] Creatinine and Glomerular filtration rate.predicted panel (S/P/Bld) 79 mL/min/1.73m??? Normal >=60 [facility] Comment on above: Order Comment: Chidi muhammad Type: BLOOD SPECIMEN [facility] Facility: [facility] Address: [address] [place] [address] Result Comment: Rhea mated Glomerular Filtration Rate [...] GFR. Performed By: #### 5 5454-3 #### [facility] CLIA [id number] [address] [place] [address] [place] Glucose [Mass/Vol] 100 mg/dL High 74-99 [facility] Comment on above: Order Comment: Chidi muhammad Type: BLOOD SPECIMEN [facility]ing Facility: [facility] Address: [address] [place] [address] Result Comment: The [place] Diabetes Association (ADA) provides guidance for cutoff [...] Standards of Medical Care in Diabetes 2016, [place] [employer]. Diabetes Care. 2016.39(Suppl 1). Performed By: #### 5 5454-3 #### [facility] CLIA [id number] [address] [place] [address] [place] Potassium [Moles/Vol] 4.1 mmol/L Normal 3.7-5.1 [facility] Comment on above: Order Comment: Speci men Type: BLOOD SPECIMEN [facility] Facility: [facility] Address: [address] [place] [address] Performed By: #### 5 5454-3 #### [facility] CLIA [id number] [address] [place] [address] [place] Protein [Mass/Vol] 7.4 g/dL Normal 6.3-8.0 [facility] Comment on above: Order Comment: Speci men Type: BLOOD SPECIMEN [facility] Facility: [facility] Address: [address] [place] [address] Performed By: #### 5 5454-3 #### [facility] CLIA [id number] [address] [place] [address] [place] Sodium [Moles/Vol] 141 mmol/L Normal 136-144 [facility] Comment on above: Order Comment: Speci men Type: BLOOD SPECIMEN [facility] Facility: [facility] Address: [address] [place] [address] Performed By: #### 5 5454-3 #### [facility] CLIA [id number] [address] [place] [address] [place] Urea nitrogen [Mass/Vol] 13 mg/dL Normal 7-21 [facility] Comment on above: Order Comment: Speci men Type: BLOOD SPECIMEN [facility] Facility: [facility] Address: [address] [place] [address] Performed By: #### 5 5454-3 #### [facility] CLIA [id number] [address] [place] [address] [place] ESR Westergren method (Bld) [Velocity]on 10-03-2024 ESR (Bld) [Velocity] 35 mm/h High 0-20 [facility] Comment on above: Order Comment: Speci men Type: BLOOD SPECIMENOrdering Facility: [facility] Address: [address] [place] [address] Performed By: #### 4 537-7 ####[facility] [id number] [place] [address] [place] Magnesium SerPl-mCncon 10-03 Magnesium [Mass/Vol] 1.9 mg/dL Normal 1.7-2.3 [facility] Comment on above: Order Comment: Speci men Type: BLOOD SPECIMEN [facility] Facility[facility] Address: [address] [place] [address] Performed By: #### 5 5454-3 #### [facility] CLIA [id number] [address] [place] [address] [place] Phosphate SerPl-mCncon 10-03 Phosphate [Mass/Vol] 4.5 mg/dL Normal 2.7-4.8 [facility] Comment on above: Order Comment: Speci men Type: BLOOD SPECIMEN [facility] Facility[facility] Address: [address] [place] [address] Performed By: #### 5 5454-3 #### [facility] CLIA [id number] [address] [place] [address] [place] XR CHEST 2V [...] Minimal linear atelectasis at the left base Client Services Vice President: PSCB Transcribe Date/Time: Oct 03 2024 3:34P Dictated by : DAISY JENKINS MD This examination was interpreted and the report reviewed and electronically signed by: DAISY JENKINS MD on Oct 03 2024 3:35PM EST [id number] Normal [facility] XR Chest PA and Lateralon IMPRESSION: Right-sided pleural fluid and atelectasis. Minimal linear atelectasis at the left base Client Services Vice President: PSCB Transcribe Date/Time: Oct 03 2024 [...] soft tissues: Unremarkable. DIVISION OF RADIOLOGY Provider, [facility] - 10/03/2024 * * *Final Report* [...] Minimal linear atelectasis at the left base Client Services Vice President: PSCB Transcribe Date/Time: Oct 03 2024 3:34P Dictated by : DAISY JENKINS MD This examination was interpreted and the report reviewed and electronically signed by: DAISY JENKINS MD on Oct 03 2024 3:35PM EST [facility] Radiology Study observation (narrative) [facility] XR Chest PA and LateralOrder ed By: Ccf Provider on 10-03-2024 [facility] CNOVon 10-02-2024 CNOV Office Visit (FAMWS ) GRICEL PATEL ([id number]) 1985 F Date Time Provider Department 10/02/24 [...] admission for pleural effusion. Recent admission to [facility] from 09/07 to 09/16 after presenting with [...] vomiting, or diarrhea or abdominal pain. No [place] bleeding or melana : No history of [...] comments: Willing (more content not included)... Normal [facility] [place] 10-02-2024 [facility] Telephone (KRISWS) GRICEL PATEL ([id number]) 1985 F Date Time Provider Department 10/02/24 [...] Encounter Status:Closed by M[facility]IC[facility] ([id number]) 1985 F Date Time Provider Department 10/02/24 [facility] During your visit today, we recorded the [...] Encounter Status:Closed by MELVI SWANSON on 10/02/24 [facility] (FAMSetem TechnologiesWS) GRICEL PATEL ([id number]) 1985 F Date Time Provider Department 10/02/24 MELVI SWANSON [facility] During your visit today, we recorded the [...] Status:Closed by MELVI SWANSON on 10/02/24 Normal [facility] BASIC METABOLIC PANELon 08-26 Anion gap [Moles/Vol] 11 mmol/L Normal 10-20 [facility] Comment on above: Order Comment: [facility] has implemented the eGFR calculation approach that does not have a coefficient for race that conforms to the NKF-ASN Task Force Recommendations. Performed By: #### 4 7222 #### [facility] [address] [place] [address] Judah Dubose M.D. [id number] Calcium [Mass/Vol] 8.5 mg/dL Normal 8.4-10.2 [facility] Comment on above: Order Comment: [facility] has implemented the eGFR calculation approach that does not have a coefficient for race that conforms to the NKF-ASN Task Force Recommendations. Performed By: #### 4 7222 #### [facility] [address] [place], [place] [address] Judah Dubose M.D. [id number] Chloride [Moles/Vol] 104 mmol/L Normal 98-108 [facility] Comment on above: Order Comment: [facility] has implemented the eGFR calculation approach that does not have a coefficient for race that conforms to the NKF-ASN Task Force Recommendations. Performed By: #### 4 7222 #### [facility] [address] [place] [address] Judah Dubose M.D. [id number] Creatinine [Mass/Vol] 0.72 mg/dL Normal 0.40-1.10 [facility] Comment on above: Order Comment: [facility] has implemented the eGFR calculation approach that does not have a coefficient for race that conforms to the NKF-ASN Task Force Recommendations. Performed By: #### 4 7222 #### [facility] [address] [place], [place] [address] Judah Dubose M.D. [id number] EGFR 109 mL/min/1.73 m2 Normal >=60 [facility] Comment on above: Order Comment: [facility] has implemented the eGFR calculation approach that does not have a coefficient for race that conforms to the NKF-ASN Task Force Recommendations. Result Comment: Rhea mated GFR was calculated using the 2020 CKD-EPI creatinine equation. Performed By: #### 4 7222 #### [facility] [address] [place] [address] Judah Dubose M.D. [id number] Glucose [Mass/Vol] 139 mg/dL High 65-99 [facility] Comment on above: Order Comment: [facility] has implemented the eGFR calculation approach that does not have a coefficient for race that conforms to the NKF-ASN Task Force Recommendations. Performed By: #### 4 7222 #### [facility] [address] [place], [place] [address] Judah Dubose M.D. [id number] HCO3 (Bld) [Moles/Vol] 28 mmol/L Normal 21-32 [facility] Comment on above: Order Comment: [facility] has implemented the eGFR calculation approach that does not have a coefficient for race that conforms to the NKF-ASN Task Force Recommendations. Performed By: #### 4 7222 #### [facility] [address] [place], [place] [address] Judah Dubose M.D. [id number] Potassium [Moles/Vol] 3.6 mmol/L Normal 3.5-5.1 [facility] Comment on above: Order Comment: [facility] has implemented the eGFR calculation approach that does not have a coefficient for race that conforms to the NKF-ASN Task Force Recommendations. Performed By: #### 4 7222 #### [facility] [address] [place] [address] Judah Dubose M.D. [id number] Sodium [Moles/Vol] 139 mmol/L Normal 135-145 [facility] Comment on above: Order Comment: [facility] has implemented the eGFR calculation approach that does not have a coefficient for race that conforms to the NKF-ASN Task Force Recommendations. Performed By: #### 4 7222 #### [facility] [address] [place], [place] [address] Judah Dbuose M.D. [id number] Urea nitrogen [Mass/Vol] 9 mg/dL Normal 8-25 [facility] Comment on above: Order Comment: [facility] has implemented the eGFR calculation approach that does not have a coefficient for race that conforms to the NKF-ASN Task Force Recommendations. Performed By: #### 4 [id number] #### LAB [address] [place], [place] [address] Judah Dubose M.D. [id number] Urea nitrogen/Creatinine [Mass ratio] 12.5 mg/mg Normal 10.0-20.0 [facility] Comment on above: Order Comment: [facility] has implemented the eGFR calculation approach that does not have a coefficient for race that conforms to the NKF-ASN Task Force Recommendations. Performed By: #### 4 7222 #### LAB [address] [place], [place] [address] Judah Dubose M.D. [id number] Basic metabolic 2000 panelon 09-16-2024 Anion gap [Moles/Vol] 11 mmol/L 10 - 20 mmol/L [facility] Calcium [Mass/Vol] 8.5 mg/dL 8.4 - 10. 2 mg/dL [facility] Chloride [Moles/Vol] 104 mmol/L 98 - 10 8 mmol/L [facility] Creatinine [Mass/Vol] 0.72 mg/dL 0.40 - 1.10 mg/dL [facility] GFR/1.73 sq M.predicted CKD-EPI (S/P/Bld) [Vol rate/Area] 109 - PINF [facility] Comment on above: Estimated GFR was ca lculated using the 2020 CKD-EPI creatinine equation. Glucose [Mass/Vol] 139 mg/dL High 65 - 99 mg/dL [facility] HCO3 [Moles/Vol] 28 mmol/L 21 - 32 mmol/L [facility] Interpretation and review of laboratory results Abnormal [facility] Potassium [Moles/Vol] 3.6 mmol/L 3.5 - 5.1 mmol/L [facility] Sodium [Moles/Vol] 139 mmol/L 135 - 145 mmol/L [facility] Urea nitrogen [Mass/Vol] 9 mg/dL 8 - 25 mg/dL [facility] Urea nitrogen/Creatinine [Mass ratio] 12.5 mg/mg 10.0 - 20.0 [facility] has implemented the eGFR calculation approach that does not have a coefficient for race that conforms to the NKF-ASN Task Force Recommendations. [facility] CBC Auto Differentialon 08-26 Basophils (Bld) [#/Vol] 0.07 10*3/uL [facility] Basophils/100 WBC (Bld) 0.8 % [facility] Eosinophils (Bld) [#/Vol] 0.56 10*3/uL High [facility] Eosinophils/100 WBC (Bld) 6.1 % [facility] Erythrocyte distribution width (RBC) [Entitic vol] 12.9 % 11.6 - 14.8 % [facility] Hematocrit (Bld) [Volume fraction] 37 % 36.0 - 46.0 % [facility] Hemoglobin (Bld) [Mass/Vol] 11.9 g/dL Low 12.0 - 16.0 g/dL [facility] Immature granulocytes (Bld) [#/Vol] 0.08 10*3/uL [facility] Immature granulocytes/100 WBC (Bld) 0.9 % [facility] Comment on above: The IG parameter is the percentage of metamyelocytes, myelocytes and promyelocytes. An immature granulocyte count (IG) of 1% or more suggests the possibility of infection, an IG count of 3% is very likely related to an infection. Interpretation and review of laboratory results Abnormal [facility] Lymphocytes (Bld) [#/Vol] 2.3 10*3/uL [facility] Lymphocytes/100 WBC (Bld) 24.9 % [facility] MCH (RBC) [Entitic mass] 29 pg 26.0 - 34.0 pg [facility] MCHC (RBC) [Mass/Vol] 32.2 g/dL 31.0 - 37.0 g/dL [facility] MCV (RBC) [Entitic vol] 90.2 fL 80.0 - 100.0 fL [facility] Monocytes (Bld) [#/Vol] 0.53 10*3/uL [facility] Monocytes/100 WBC (Bld) 5.7 % [facility] Neutrophils (Bld) [#/Vol] 5.71 10*3/uL [facility] Neutrophils/100 WBC (Bld) 61.6 % [facility] Nucleated RBC (Bld) [#/Vol] 0 10*3/uL [facility] Nucleated RBC/100 WBC (Bld) [Ratio] 0 % [facility] Platelet mean volume (Bld) [Entitic vol] 8.9 fL Low 9.4 - 12.4 fL [facility] Platelets (Bld) [#/Vol] 454 10*3/uL High [facility] RBC (Bld) [#/Vol] 4.1 10*6/uL [facility] alth WBC (Bld) [#/Vol] 9.25 10*3/uL [facility] eah [facility] CBC WITH AUTO DIFFERENTIALon 09-16-2024 AUTO NRBC 0.0 % Normal [facility] Comment on above: Performed By: #### 4 [id number] #### [facility] [address] [place] [address] Eliazar Franks M.D. [id number] AUTO NRBC ABS COUNT 0.00 K/mcL Normal 0.00-0.00 [facility] Comment on above: Performed By: #### 4 [id number] #### [facility] [address] [place], [place] [address] Eliazar Franks M.D. [id number] BASOPHILS ABSOLUTE COUNT 0.07 K/mcL Normal 0.00-0.30 [facility] Comment on above: Performed By: #### 4 [id number] #### [facility] [address] [place], [place] [address] Eliazar Franks M.D. [id number] Basophils/100 WBC (Bld) 0.8 % Normal [facility] Comment on above: Performed By: #### 4 [id number] #### [facility] [address] [place] [address] Eliazar Franks M.D. [id number] Eosinophils (Bld) [#/Vol] 0.56 10*3/uL High 0.00-0.50 [facility] Comment on above: Performed By: #### 4 [id number] #### [facility] [address] [place] [address] Eliazar Franks M.D. [id number] Eosinophils/100 WBC (Bld) 6.1 % Normal [facility] Comment on above: Performed By: #### 4 [id number] #### [facility] [address] [place] [address] Eliazar Franks M.D. [id number] Erythrocyte distribution width (RBC) [Ratio] 12.9 % Normal 11.6-14.8 [facility] Comment on above: Performed By: #### 4 [id number] #### [facility] [address] [place] [address] Eliazar Franks M.D. [id number] Hematocrit (Bld) [Volume fraction] 37.0 % Normal 36.0-46.0 [facility] Comment on above: Performed By: #### 4 [id number] #### [facility] [address] [place] [address] Eliazar Franks M.D. [id number] Hemoglobin (Bld) [Mass/Vol] 11.9 g/dL Low 12.0-16.0 [facility] Comment on above: Performed By: #### 4 [id number] #### [facility] [address] [place] [address] Eliazar Franks M.D. [id number] IG ABSOLUTE 0.08 K/mcL Normal 0.00-0.30 [facility] Comment on above: Performed By: #### 4 [id number] #### [facility] [address] [place] [address] Eliazar Franks M.D. [id number] IG PERCENT 0.90 % Normal [facility] Comment on above: Result Comment: The IG parameter is the percentage of metamyelocytes, myelocytes and promyelocytes. An immature granulocyte count (IG) of 1% or more suggests the possibility of infection, an IG count of 3% is very likely related to an infection. Performed By: #### 4 [id number] #### [facility] [address] [place] [address] Eliazar Franks M.D. [id number] Lymphocytes (Bld) [#/Vol] 2.30 10*3/uL Normal 0.90-4.00 [facility] Comment on above: Performed By: #### 4 [id number] #### [facility] [address] [place] [address] Eliazar Franks M.D. [id number] Lymphocytes/100 WBC (Bld) 24.9 % Normal [facility] Comment on above: Performed By: #### 4 [id number] #### [facility] [address] [place] [address] Eliazar Franks M.D. [id number] MCH (RBC) [Entitic mass] 29.0 pg Normal 26.0-34.0 [facility] Comment on above: Performed By: #### 4 [id number] #### [facility] [address] [place], [place] [address] Eliazar Franks M.D. [id number] MCV (RBC) [Entitic vol] 90.2 fL Normal 80.0-100.0 [facility] Comment on above: Performed By: #### 4 [id number] #### [facility] [address] [place], [place] [address] Eliazar Franks M.D. [id number] MEAN CORPUSCULAR HEMOGLOBIN CONC 32.2 g/dL Normal 31.0-37.0 [facility] Comment on above: Performed By: #### 4 [id number] #### [facility] [address] [place] [address] Eliazar Franks M.D. [id number] Monocytes (Bld) [#/Vol] 0.53 10*3/uL Normal 0.30-0.90 [facility] Comment on above: Performed By: #### 4 [id number] #### [facility] [address] [place], [place] [address] Eliazar Franks M.D. [id number] Monocytes/100 WBC (Bld) 5.7 % Normal [facility] Comment on above: Performed By: #### 4 [id number] #### [facility] [address] [place] [address] Eliazar Franks M.D. [id number] NEUTROPHILS ABSOLUTE COUNT 5.71 K/mcL Normal 1.70-7.00 [facility] Comment on above: Performed By: #### 4 [id number] #### [facility] [address] [place] [address] Eliazar Franks M.D. [id number] Neutrophils/100 WBC (Bld) 61.6 % Normal [facility] Comment on above: Performed By: #### 4 [id number] #### [facility] [address] [place], [place] [address] Eliazar Franks M.D. [id number] Platelet mean volume (Bld) [Entitic vol] 8.9 fL Low 9.4-12.4 [facility] Comment on above: Performed By: #### 4 [id number] #### [facility] [address] [place], [place] [address] Eliazar Franks M.D. [id number] Platelets (Bld) [#/Vol] 454 10*3/uL High 150-400 [facility] Comment on above: Performed By: #### 4 [id number] #### [facility] [address] [place], [place] [address] Eliazar Franks M.D. [id number] RBC (Bld) [#/Vol] 4.10 10*6/uL Normal 4.00-5.20 [facility] Comment on above: Performed By: #### 4 [id number] #### [facility] [address] [place] [address] Eliazar Franks M.D. [id number] WBC (Bld) [#/Vol] 9.25 10*3/uL Normal 4.50-11.00 [facility] Comment on above: Performed By: #### 4 [id number] #### [facility] [address] [place] [address] Eliazar Franks M.D. [id number] XR CHEST PA/APon 09-16-2024 XR CHEST PA/AP [...] MonSep 16, 2024 8:31:17 PM EDT Normal [facility] Comment on above: Order Comment: Injur [...] tube is in stable position. No pneumothorax. Ubimo/Numedeon Workstation ID: [id number] Dictated by: CORBIN ARAUJO on MonSep 16, 2024 2:28:20 PM EDT Transcribed by: JAIR MCMULLEN on MonSep 16, 2024 2:56:37 PM EDT Finalized by: CORBIN ARAUJO on MonSep 16, 2024 8:31:05 PM EDT Normal [facility] Comment on above: Order Comment: Injur y/Trauma or Illness?:Illness/OtherHow long have you had these symptoms (acute/chronic)?:AcuteReason for exam?:CT to watersealHistory of cancer?:uSurgeries, chemotherapy, or radiation?:uType of Exam?:InitialAdditional signs and symptoms?:CT to waterseal XR Chest PA and Abdomen APon 09-16-2024 1. Right chest tube has been removed. No pneumothorax. 2. Right basilar discoid atelectasis and small right pleural effusion. Ubimo/Numedeon Workstation ID: [id number] GE RIS EXAMINATION: XR [...] AND SOFT TISSUES: No acute osseous abnormality. InDMusic Corbin Araujo MD - 09/16/2024 EXAMINATION: XR [...] discoid atelectasis and small right pleural effusion. tsumobiR/Numedeon Workstation ID: [id number] [facility] 1. Small right pleural effusion with increased conspicuity of right basilar discoid atelectasis. Right chest tube is in stable position. No pneumothorax. tsumobiR/Numedeon Workstation ID: [id number] InDMusic EXAMINATION: XR CHEST PA/AP HISTORY: ORDERING SYSTEM [...] AND SOFT TISSUES: No acute osseous abnormality. [facility] Corbin Araujo MD - 09/16/2024 EXAMINATION: XR CHEST PA/AP HISTORY: ORDERING SYSTEM PROVIDED HISTORY: CT to [facility], TECHNOLOGIST PROVIDED HISTORY: Illness/Other [facility]: u Surgery, RadiationHistory: u Encounter Type: Initial Additional signs and symptoms: CT to [facility] ORDERING SYSTEM PROVIDED DIAGNOSIS CODES: J18.9 [...] position. No pneumothorax. CELESTINER/lavelle Workstation ID: [id number] [facility] Radiology Study observation (narrative) [facility] Radiology Study observation (narrative) [facility] XR Chest PA and Abdomen APOr dered By: Corbin Araujo on 09-16-2024 [facility] Work Phone: XR MANDIBLE LESS THAN [...] ORIF repair of the left mandibular ramus. MPH/Coferonr Workstation ID: [id number] Dictated by: GERTRUDE VILLAREAL on MonSep 16, 2024 4:18:06 PM EDT Transcribed by: MELANIE GILLESPIE on MonSep 16, 2024 4:40:31 PM EDT Finalized by: GERTRUDE VILLAREAL on MonSep 16, 2024 5:50:51 PM EDT Normal [facility] Comment on above: Order Comment: Injur [...] ORIF repair of the left mandibular ramus. MPH/Coferonr Workstation ID: [id number] RIS EXAMINATION: XR MANDIBLE [...] left mandibular ramus. MPH/mjr Workstation ID: [id number] [facility] Radiology Study observation (narrative) [facility] BASIC METABOLIC PANELon 08-26 Anion gap [Moles/Vol] 14 mmol/L Normal 10-20 [facility] Comment on above: Order Comment: [facility] has implemented the eGFR calculation approach that does not have a coefficient for race that conforms to the NKF-ASN Task Force Recommendations. Performed By: #### 4 [id number] #### [facility] [address] [facility] [place] [place] [address] Judah Dubose M.D. [id number] Calcium [Mass/Vol] 8.6 mg/dL Normal 8.4-10.2 [facility] Comment on above: Order Comment: [facility] has implemented the eGFR calculation approach that does not have a coefficient for race that conforms to the NKF-ASN Task Force Recommendations. Performed By: #### 4 4090 #### LAB [address] [place] [id number] Judah Dubose M.D. [id number] Chloride [Moles/Vol] 102 mmol/L Normal 98-108 [facility] Comment on above: Order Comment: [facility] has implemented the eGFR calculation approach that does not have a coefficient for race that conforms to the NKF-ASN Task Force Recommendations. Performed By: #### 4 4090 #### LAB [address] [place] [address] Judah Dubose M.D. [id number] Creatinine [Mass/Vol] 0.68 mg/dL Normal 0.40-1.10 [facility] Comment on above: Order Comment: [facility] has implemented the eGFR calculation approach that does not have a coefficient for race that conforms to the NKF-ASN Task Force Recommendations. Performed By: #### 4 4090 #### LAB [address] [place] [address] Judah Dubose M.D. [id number] EGFR 113 mL/min/1.73 m2 Normal >=60 [facility] Comment on above: Order Comment: [facility] has implemented the eGFR calculation approach that does not have a coefficient for race that conforms to the NKF-ASN Task Force Recommendations. Result Comment: Rhea mated GFR was calculated using the 2020 CKD-EPI creatinine equation. Performed By: #### 4 4090 #### LAB [address] [place] [address] Judah Dubose M.D. [id number] Glucose [Mass/Vol] 121 mg/dL High 65-99 [facility] Comment on above: Order Comment: [facility] has implemented the eGFR calculation approach that does not have a coefficient for race that conforms to the NKF-ASN Task Force Recommendations. Performed By: #### 4 4090 #### LAB [address] [place] [address] Judah Dubose M.D. [id number] HCO3 (Bld) [Moles/Vol] 25 mmol/L Normal 21-32 [facility] Comment on above: Order Comment: [facility] has implemented the eGFR calculation approach that does not have a coefficient for race that conforms to the NKF-ASN Task Force Recommendations. Performed By: #### 4 4090 #### LAB [address] [place] [address] Judah Dubose M.D. [id number] Potassium [Moles/Vol] 3.7 mmol/L Normal 3.5-5.1 [facility] Comment on above: Order Comment: [facility] has implemented the eGFR calculation approach that does not have a coefficient for race that conforms to the NKF-ASN Task Force Recommendations. Performed By: #### 4 4090 #### [facility] [address] [place] [address] Judah Dubose M.D. [id number] Sodium [Moles/Vol] 137 mmol/L Normal 135-145 [facility] Comment on above: Order Comment: [facility] has implemented the eGFR calculation approach that does not have a coefficient for race that conforms to the NKF-ASN Task Force Recommendations. Performed By: #### 4 [id number] #### LAB [address] [place] [address] Judah Dubose M.D. [id number] Urea nitrogen [Mass/Vol] 10 mg/dL Normal 8-25 [facility] Comment on above: Order Comment: [facility] has implemented the eGFR calculation approach that does not have a coefficient for race that conforms to the NKF-ASN Task Force Recommendations. Performed By: #### 4 4090 #### LAB [address] [place] [address] Judah Dubose M.D. [id number] Urea nitrogen/Creatinine [Mass ratio] 14.7 mg/mg Normal 10.0-20.0 [facility] Comment on above: Order Comment: [facility] has implemented the eGFR calculation approach that does not have a coefficient for race that conforms to the NKF-ASN Task Force Recommendations. Performed By: #### 4 [id number] #### [facility] [address] [place], [place] [address] Judah Dubose M.D. [id number] Basic metabolic 2000 panelon 09-15-2024 Anion gap [Moles/Vol] 14 mmol/L 10 - 20 mmol/L [facility] Calcium [Mass/Vol] 8.6 mg/dL 8.4 - 10. 2 mg/dL [facility] Chloride [Moles/Vol] 102 mmol/L 98 - 10 8 mmol/L [facility] Creatinine [Mass/Vol] 0.68 mg/dL 0.40 - 1.10 mg/dL [facility] GFR/1.73 sq M.predicted CKD-EPI (S/P/Bld) [Vol rate/Area] 113 - PINF [facility] Comment on above: Estimated GFR was ca lculated using the 2020 CKD-EPI creatinine equation. Glucose [Mass/Vol] 121 mg/dL High 65 - 99 mg/dL [facility] HCO3 [Moles/Vol] 25 mmol/L 21 - 32 mmol/L [facility] Interpretation and review of laboratory results Abnormal [facility] Potassium [Moles/Vol] 3.7 mmol/L 3.5 - 5.1 mmol/L [facility] Sodium [Moles/Vol] 137 mmol/L 135 - 145 mmol/L [facility] Urea nitrogen [Mass/Vol] 10 mg/dL 8 - 25 mg/dL [facility] Urea nitrogen/Creatinine [Mass ratio] 14.7 mg/mg 10.0 - 20.0 [facility] has implemented the eGFR calculation approach that does not have a coefficient for race that conforms to the NKF-ASN Task Force Recommendations. [facility] CBC Auto Differentialon 08-26 Basophils (Bld) [#/Vol] 0.06 10*3/uL [facility] Basophils/100 WBC (Bld) 0.6 % [facility] Eosinophils (Bld) [#/Vol] 0.53 10*3/uL High [facility] Eosinophils/100 WBC (Bld) 5.3 % [facility] Erythrocyte distribution width (RBC) [Entitic vol] 12.8 % 11.6 - 14.8 % [facility] Hematocrit (Bld) [Volume fraction] 39.8 % 36.0 - 46.0 % [facility] Hemoglobin (Bld) [Mass/Vol] 12.9 g/dL 12.0 - 16.0 g/dL [facility] Immature granulocytes (Bld) [#/Vol] 0.1 10*3/uL [facility] Immature granulocytes/100 WBC (Bld) 1 % [facility] Comment on above: The IG parameter is the percentage of metamyelocytes, myelocytes and promyelocytes. An immature granulocyte count (IG) of 1% or more suggests the possibility of infection, an IG count of 3% is very likely related to an infection. Interpretation and review of laboratory results Abnormal [facility] Lymphocytes (Bld) [#/Vol] 2.3 10*3/uL [facility] Lymphocytes/100 WBC (Bld) 22.8 % [facility] MCH (RBC) [Entitic mass] 29.4 pg 26.0 - 34.0 pg [facility] MCHC (RBC) [Mass/Vol] 32.4 g/dL 31.0 - 37.0 g/dL [facility] MCV (RBC) [Entitic vol] 90.7 fL 80.0 - 100.0 fL [facility] Monocytes (Bld) [#/Vol] 0.57 10*3/uL [facility] Monocytes/100 WBC (Bld) 5.7 % [facility] Neutrophils (Bld) [#/Vol] 6.51 10*3/uL [facility] Neutrophils/100 WBC (Bld) 64.6 % [facility] Nucleated RBC (Bld) [#/Vol] 0 10*3/uL [facility] Nucleated RBC/100 WBC (Bld) [Ratio] 0 % [facility] Platelet mean volume (Bld) [Entitic vol] 8.9 fL Low 9.4 - 12.4 fL [facility] Platelets (Bld) [#/Vol] 484 10*3/uL High [facility] RBC (Bld) [#/Vol] 4.39 10*6/uL [facility]alth WBC (Bld) [#/Vol] 10.07 10*3/uL [facility] CBC WITH AUTO DIFFERENTIALon 09-15-2024 AUTO NRBC 0.0 % Normal [facility] Comment on above: Performed By: #### 4 [id number] #### [facility] [address] [place] [address] Eliazar Franks M.D. [id number] AUTO NRBC ABS COUNT 0.00 K/mcL Normal 0.00-0.00 [facility] Comment on above: Performed By: #### 4 [id number] #### [facility] [address] [place], [place] [address] Eliazar Franks M.D. [id number] BASOPHILS ABSOLUTE COUNT 0.06 K/mcL Normal 0.00-0.30 [facility] Comment on above: Performed By: #### 4 [id number] #### [facility] [address] [place] [address] Eliazar Franks M.D. [id number] Basophils/100 WBC (Bld) 0.6 % Normal [facility] Comment on above: Performed By: #### 4 [id number] #### [facility] [address] [place] [address] Eliazar Franks M.D. [id number] Eosinophils (Bld) [#/Vol] 0.53 10*3/uL High 0.00-0.50 [facility] Comment on above: Performed By: #### 4 [id number] #### [facility] [address] [place], [place] [address] Eliazar Franks M.D. [id number] Eosinophils/100 WBC (Bld) 5.3 % Normal [facility] Comment on above: Performed By: #### 4 [id number] #### [facility] [address] [place], [place] [address] Eliazar Franks M.D. [id number] Erythrocyte distribution width (RBC) [Ratio] 12.8 % Normal 11.6-14.8 [facility] Comment on above: Performed By: #### 4 [id number] #### [facility] [address] [place], [place] [address] Eliazar Franks M.D. [id number] Hematocrit (Bld) [Volume fraction] 39.8 % Normal 36.0-46.0 [facility] Comment on above: Performed By: #### 4 [id number] #### [facility] [address] [place], [place] [address] Eliazar Franks M.D. [id number] Hemoglobin (Bld) [Mass/Vol] 12.9 g/dL Normal 12.0-16.0 [facility] Comment on above: Performed By: #### 4 [id number] #### [facility] [address] [place] [address] Eliazar Franks M.D. [id number] IG ABSOLUTE 0.10 K/mcL Normal 0.00-0.30 [facility] Comment on above: Performed By: #### 4 [id number] #### [facility] [address] [place] [address] Eliazar Franks M.D. [id number] IG PERCENT 1.00 % Normal [facility] Comment on above: Result Comment: The IG parameter is the percentage of metamyelocytes, myelocytes and promyelocytes. An immature granulocyte count (IG) of 1% or more suggests the possibility of infection, an IG count of 3% is very likely related to an infection. Performed By: #### 4 [id number] #### [facility] [address] [place], [place] [address] Eliazar Franks M.D. [id number] Lymphocytes (Bld) [#/Vol] 2.30 10*3/uL Normal 0.90-4.00 [facility] Comment on above: Performed By: #### 4 [id number] #### [facility] [address] [place], [place] [address] Eliazar Franks M.D. [id number] Lymphocytes/100 WBC (Bld) 22.8 % Normal [facility] Comment on above: Performed By: #### 4 [id number] #### [facility] [address] [place], [place] [address] Eliazar Franks M.D. [id number] MCH (RBC) [Entitic mass] 29.4 pg Normal 26.0-34.0 [facility] Comment on above: Performed By: #### 4 [id number] #### [facility] [address] [place], [place] [address] Eliazar Franks M.D. [id number] MCV (RBC) [Entitic vol] 90.7 fL Normal 80.0-100.0 [facility] Comment on above: Performed By: #### 4 [id number] #### [facility] [address] [place] [address] Eliazar Franks M.D. [id number] MEAN CORPUSCULAR HEMOGLOBIN CONC 32.4 g/dL Normal 31.0-37.0 [facility] Comment on above: Performed By: #### 4 [id number] #### [facility] [address] [place] [address] Eliazar Franks M.D. [id number] Monocytes (Bld) [#/Vol] 0.57 10*3/uL Normal 0.30-0.90 [facility] Comment on above: Performed By: #### 4 4016 #### [facility] [address] [place] [address] Eliazar Franks M.D. [id number] Monocytes/100 WBC (Bld) 5.7 % Normal [facility] Comment on above: Performed By: #### 4 4016 #### [facility] [address] [place] [address] Eliazar Franks M.D. [id number] NEUTROPHILS ABSOLUTE COUNT 6.51 K/mcL Normal 1.70-7.00 [facility] Comment on above: Performed By: #### 4 4016 #### [facility] [address] [place], [place] [id number] Eliazar Franks M.D. [id number] Neutrophils/100 WBC (Bld) 64.6 % Normal [facility] Comment on above: Performed By: #### 4 4016 #### [facility] [address] [place] [address] Eliazar Franks M.D. [id number] Platelet mean volume (Bld) [Entitic vol] 8.9 fL Low 9.4-12.4 [facility] Comment on above: Performed By: #### 4 4016 #### [facility] [address] [place] [address] Eliazar Franks M.D. [id number] Platelets (Bld) [#/Vol] 484 10*3/uL High 150-400 [facility] Comment on above: Performed By: #### 4 4016 #### [facility] [address] [place], [place] [address] Eliazar Franks M.D. [id number] RBC (Bld) [#/Vol] 4.39 10*6/uL Normal 4.00-5.20 [facility] Comment on above: Performed By: #### 4 4016 #### [facility] [address] [place] [address] Eliazar Franks M.D. [id number] WBC (Bld) [#/Vol] 10.07 10*3/uL Normal 4.50-11.00 [facility] Comment on above: Performed By: #### 4 4016 #### [facility] [address] [place] [address] Eliazar Franks M.D. [id number] ESR Westergren method (Bld) [Velocity]on 09-15-2024 ESR (Bld) [Velocity] 78 mm/h High [facility] Interpretation and review of laboratory results Abnormal [facility] HIV Antibody (HIV1/HIV2)on 0 09-15-2024 HIV 1+2 Ab+HIV1 p24 Ag IA Ql Negative Negative [facility] Interpretation and review of laboratory results Normal [facility] This assay screens f or the presence of HIV-1, HIV-2 antibodies and for the presence of HIV-1 antigen. Test performed using Bg SHELLY immunoassay system [facility] SEDIMENTATION RATEon 025 SEDIMENTATION RATE, ERYTHROCYTE 78 mm/hr High 0-20 [facility] Comment on above: Performed By: #### 4 7222 #### LAB [address] [place], [place] [address] Judah Dubose M.D. [id number] SPUTUM AEROBIC CULTUREon SPUTUM AEROBIC CULTURE RESPIRATORY CULTU RE Normal Zaki after 48 hrs GRAM STAIN RESULT Moderate Epithelial Cells Moderate WBC Many Mixed Zaki Normal [facility] Comment on above: Performed By: #### 4 4046 #### [facility] [address] [place], [place] [address] Eliazar Franks M.D. [id number] XR CHEST PA/APon 09-15-2024 XR CHEST PA/AP [...] device along the lower chest remains unchanged. [email or web address] Workstation ID: [id number] Dictated by: JAYDA RUBIO on MonSep 15, 2024 12:57:06 PM EDT Transcribed by: VICKI TALBERT on MonSep 15, 2024 2:05:27 PM EDT Finalized by: JAYDA RUBIO on MonSep 15, 2024 2:18:25 PM EDT [facility] Comment on above: Order Comment: Injur [...] and/or infiltrate. Workstation ID: [id number] Dictated by: OTMÁS MESSINA on MonSep 15, 2024 9:55:12 AM EDT Transcribed by: TOMÁS MESSINA on MonSep 15, 2024 9:55:12 AM EDT Finalized by: TOMÁS MESSINA on MonSep 15, 2024 9:55:12 AM EDT [facility] Comment on above: Order Comment: Injur [...] chest remains unchanged. [employer] Workstation ID: [id number] [employer] EXAMINATION: PORTABLE AP UPRIGHT CHEST: 09/15/2024 AT [...] device along the lower chest remains unchanged. [employer] Workstation ID: [id number] [facility] Radiology Study observation (narrative) [facility] Stable right chest tube. There is no pneumothorax. Stable bandlike atelectasis within the right lower chest and additional opacity at the right lung base secondary to a small right pleural effusion and atelectasis and/or infiltrate. Workstation ID: [id number] [employer] EXAMINATION: XR CHEST PA/AP HISTORY: ORDERING SYSTEM [...] and atelectasis and/or infiltrate. Workstation ID: [id number] [facility] Radiology Study observation (narrative) [facility] XR Chest PA and Abdomen APOr dered By: Jayda Rubio on 09-15-2024 [facility] Work Phone: BASIC METABOLIC PANELon 08-26 Anion gap [Moles/Vol] 14 mmol/L Normal 10-20 [facility] Comment on above: Order Comment: [facility] has implemented the eGFR calculation approach that does not have a coefficient for race that conforms to the NKF-ASN Task Force Recommendations. Performed By: #### 4 7222 #### [facility] [address] [place] [address] Judah Dubose M.D. [id number] Calcium [Mass/Vol] 8.3 mg/dL Low 8.4-10.2 [facility] Comment on above: Order Comment: [facility] has implemented the eGFR calculation approach that does not have a coefficient for race that conforms to the NKF-ASN Task Force Recommendations. Performed By: #### 4 7222 #### LAB [address] [place], [place] [address] Judah Dubose M.D. [id number] Chloride [Moles/Vol] 101 mmol/L Normal 98-108 [facility] Comment on above: Order Comment: [facility] has implemented the eGFR calculation approach that does not have a coefficient for race that conforms to the NKF-ASN Task Force Recommendations. Performed By: #### 4 7222 #### LAB [address] [place], [place] [address] Judah Dubose M.D. [id number] Creatinine [Mass/Vol] 0.69 mg/dL Normal 0.40-1.10 [facility] Comment on above: Order Comment: [facility] has implemented the eGFR calculation approach that does not have a coefficient for race that conforms to the NKF-ASN Task Force Recommendations. Performed By: #### 4 7222 #### LAB [address] [id number] Judah Dubose M.D. [id number] EGFR 113 mL/min/1.73 m2 Normal >=60 [facility] Comment on above: Order Comment: [facility] has implemented the eGFR calculation approach that does not have a coefficient for race that conforms to the NKF-ASN Task Force Recommendations. Result Comment: Rhea mated GFR was calculated using the 2020 CKD-EPI creatinine equation. Performed By: #### 4 7222 #### LAB [address] [id number] Judah Dubose M.D. [id number] Glucose [Mass/Vol] 119 mg/dL High 65-99 [facility] Comment on above: Order Comment: [facility] has implemented the eGFR calculation approach that does not have a coefficient for race that conforms to the NKF-ASN Task Force Recommendations. Performed By: #### 4 7222 #### LAB [address] [id number] Judah Dubose M.D. [id number] HCO3 (Bld) [Moles/Vol] 27 mmol/L Normal 21-32 [facility] Comment on above: Order Comment: [facility] has implemented the eGFR calculation approach that does not have a coefficient for race that conforms to the NKF-ASN Task Force Recommendations. Performed By: #### 4 7222 #### LAB [address] [address] Judah Dubose M.D. [id number] Potassium [Moles/Vol] 3.5 mmol/L Normal 3.5-5.1 [facility] Comment on above: Order Comment: [facility] has implemented the eGFR calculation approach that does not have a coefficient for race that conforms to the NKF-ASN Task Force Recommendations. Performed By: #### 4 7222 #### LAB [address] [address] Judah Dubose M.D. [id number] Sodium [Moles/Vol] 138 mmol/L Normal 135-145 [facility] Comment on above: Order Comment: [facility] has implemented the eGFR calculation approach that does not have a coefficient for race that conforms to the NKF-ASN Task Force Recommendations. Performed By: #### 4 7222 #### LAB [address] [address] Judah Dubose M.D. [id number] Urea nitrogen [Mass/Vol] 11 mg/dL Normal 8-25 [facility] Comment on above: Order Comment: [facility] has implemented the eGFR calculation approach that does not have a coefficient for race that conforms to the NKF-ASN Task Force Recommendations. Performed By: #### 4 7222 #### LAB [address] [address] Judah Dubose M.D. [id number] Urea nitrogen/Creatinine [Mass ratio] 15.9 mg/mg Normal 10.0-20.0 [facility] Comment on above: Order Comment: [facility] has implemented the eGFR calculation approach that does not have a coefficient for race that conforms to the NKF-ASN Task Force Recommendations. Performed By: #### 4 7222 #### [facility] [address] [place], [place] [address] Judah Dubose M.D. [id number] Basic metabolic 2000 panelon 09-14-2024 Anion gap [Moles/Vol] 14 mmol/L 10 - 20 mmol/L [facility] Calcium [Mass/Vol] 8.3 mg/dL Low 8.4 - 10. 2 mg/dL [facility] Chloride [Moles/Vol] 101 mmol/L 98 - 10 8 mmol/L [facility] Creatinine [Mass/Vol] 0.69 mg/dL 0.40 - 1.10 mg/dL [facility] GFR/1.73 sq M.predicted CKD-EPI (S/P/Bld) [Vol rate/Area] 113 - PINF [facility] Comment on above: Estimated GFR was ca lculated using the 2020 CKD-EPI creatinine equation. Glucose [Mass/Vol] 119 mg/dL High 65 - 99 mg/dL [facility] HCO3 [Moles/Vol] 27 mmol/L 21 - 32 mmol/L [facility] Interpretation and review of laboratory results Abnormal [facility] Potassium [Moles/Vol] 3.5 mmol/L 3.5 - 5.1 mmol/L [facility] Sodium [Moles/Vol] 138 mmol/L 135 - 145 mmol/L [facility] Urea nitrogen [Mass/Vol] 11 mg/dL 8 - 25 mg/dL [facility] Urea nitrogen/Creatinine [Mass ratio] 15.9 mg/mg 10.0 - 20.0 [facility] has implemented the eGFR calculation approach that does not have a coefficient for race that conforms to the NKF-ASN Task Force Recommendations. [facility] Body Fluid Aerobic CultureOr dered By: Neela Gibson on 09-14-2024 Bacteria identified Aer cx Nom (Body fld) No Growth after 5 days [facility] Microscopic observation Gram stain Nom (Body fld) Many WBC [facility] Microscopic observation Gram stain Nom (Body fld) Many RBC [facility] Microscopic observation Gram stain Nom (Body fld) No Organisms Seen [facility] CBC Auto Differentialon 08-26 Basophils (Bld) [#/Vol] 0.06 10*3/uL [facility] Basophils/100 WBC (Bld) 0.5 % [facility] Eosinophils (Bld) [#/Vol] 0.55 10*3/uL High [facility] Eosinophils/100 WBC (Bld) 4.6 % [facility] Erythrocyte distribution width (RBC) [Entitic vol] 12.7 % 11.6 - 14.8 % [facility] Hematocrit (Bld) [Volume fraction] 40.2 % 36.0 - 46.0 % [facility] Hemoglobin (Bld) [Mass/Vol] 13 g/dL 12.0 - 16.0 g/dL [facility] Immature granulocytes (Bld) [#/Vol] 0.18 10*3/uL [facility] Immature granulocytes/100 WBC (Bld) 1.5 % [facility] Comment on above: The IG parameter is the percentage of metamyelocytes, myelocytes and promyelocytes. An immature granulocyte count (IG) of 1% or more suggests the possibility of infection, an IG count of 3% is very likely related to an infection. Interpretation and review of laboratory results Abnormal [facility] Lymphocytes (Bld) [#/Vol] 2.9 10*3/uL [facility] Lymphocytes/100 WBC (Bld) 24 % [facility] MCH (RBC) [Entitic mass] 29.2 pg 26.0 - 34.0 pg [facility] MCHC (RBC) [Mass/Vol] 32.3 g/dL 31.0 - 37.0 g/dL [facility] MCV (RBC) [Entitic vol] 90.3 fL 80.0 - 100.0 fL [facility] Monocytes (Bld) [#/Vol] 0.93 10*3/uL High [facility] Monocytes/100 WBC (Bld) 7.7 % [facility] Neutrophils (Bld) [#/Vol] 7.46 10*3/uL High [facility] Neutrophils/100 WBC (Bld) 61.7 % [facility] Nucleated RBC (Bld) [#/Vol] 0 10*3/uL [facility] Nucleated RBC/100 WBC (Bld) [Ratio] 0 % [facility] Platelet mean volume (Bld) [Entitic vol] 8.8 fL Low 9.4 - 12.4 fL [facility] Platelets (Bld) [#/Vol] 481 10*3/uL [facility] RBC (Bld) [#/Vol] 4.45 10*6/uL [facility] WBC (Bld) [#/Vol] 12.08 10*3/uL [facility] CBC WITH AUTO DIFFERENTIALon 09-14-2024 AUTO NRBC 0.0 % [facility] Comment on above: Performed By: #### L [id number] #### LAB [address] [address] Judah Dubose M.D. [id number] AUTO NRBC ABS COUNT 0.00 K/mcL Normal 0.00-0.00 [facility] Comment on above: Performed By: #### L [id number] #### LAB [address] [address] Judah Dubose M.D. [id number] BASOPHILS ABSOLUTE COUNT 0.06 K/mcL Normal 0.00-0.30 [facility] Comment on above: Performed By: #### L [id number] #### LAB [address] [address] Judah Dubose M.D. [id number] Basophils/100 WBC (Bld) 0.5 % [facility] Comment on above: Performed By: #### L [id number] #### LAB [address] [place] [address] Judah Dubose M.D. [id number] Eosinophils (Bld) [#/Vol] 0.55 10*3/uL [facility] 0.00-0.50 [facility] Comment on above: Performed By: #### L [id number] #### LAB [address] [place] [address] Judah Dubose M.D. [id number] Eosinophils/100 WBC (Bld) 4.6 % [facility] Comment on above: Performed By: #### L [id number] #### LAB [address] [place] [address] Judah Dubose M.D. [id number] Erythrocyte distribution width (RBC) [Ratio] 12.7 % Normal 11.6-14.8 [facility] Comment on above: Performed By: #### L [id number] #### LAB [address] [address] Judah Dubose M.D. [id number] Hematocrit (Bld) [Volume fraction] 40.2 % Normal 36.0-46.0 [facility] Comment on above: Performed By: #### L [id number] #### LAB [address] [address] Judah Dubose M.D. [id number] Hemoglobin (Bld) [Mass/Vol] 13.0 g/dL Normal 12.0-16.0 [facility] Comment on above: Performed By: #### L [id number] #### LAB [address] [address] Judah Dubose M.D. [id number] IG ABSOLUTE 0.18 K/mcL Normal 0.00-0.30 [facility] Comment on above: Performed By: #### L [id number] #### LAB [address] [address] Judah Dubose M.D. [id number] IG PERCENT 1.50 % Normal [facility] Comment on above: Result Comment: The IG parameter is the percentage of metamyelocytes, myelocytes and promyelocytes. An immature granulocyte count (IG) of 1% or more suggests the possibility of infection, an IG count of 3% is very likely related to an infection. Performed By: #### L [id number] #### LAB [address] [address] Judah Dubose M.D. [id number] Lymphocytes (Bld) [#/Vol] 2.90 10*3/uL Normal 0.90-4.00 [facility] Comment on above: Performed By: #### L [id number] #### LAB [address] [place] [address] Judah Dubose M.D. [id number] Lymphocytes/100 WBC (Bld) 24.0 % Normal [facility] Comment on above: Performed By: #### L [id number] #### LAB [address] [address] Judah Dubose M.D. [id number] MCH (RBC) [Entitic mass] 29.2 pg Normal 26.0-34.0 [facility] Comment on above: Performed By: #### L [id number] #### LAB [address] [address] Judah Dubose M.D. [id number] MCV (RBC) [Entitic vol] 90.3 fL Normal 80.0-100.0 [facility] Comment on above: Performed By: #### L [id number] #### LAB [address] [address] Judah Dubose M.D. [id number] MEAN CORPUSCULAR HEMOGLOBIN CONC 32.3 g/dL Normal 31.0-37.0 [facility] Comment on above: Performed By: #### L [id number] #### LAB [address] [address] Judah Dubose M.D. [id number] Monocytes (Bld) [#/Vol] 0.93 10*3/uL High 0.30-0.90 [facility] Comment on above: Performed By: #### L [id number] #### LAB [address] [place] [address] Judah Dubose M.D. [id number] Monocytes/100 WBC (Bld) 7.7 % Normal [facility] Comment on above: Performed By: #### L [id number] #### LAB [address] [address] Judah Dubose M.D. [id number] NEUTROPHILS ABSOLUTE COUNT 7.46 K/mcL High 1.70-7.00 [facility] Comment on above: Performed By: #### L [id number] #### [facility] [address] [place] [address] Judah Dubose M.D. [id number] Neutrophils/100 WBC (Bld) 61.7 % Normal [facility] Comment on above: Performed By: #### L [id number] #### [facility] [address] [address] Judah Dubose M.D. [id number] Platelet mean volume (Bld) [Entitic vol] 8.8 fL Low 9.4-12.4 [facility] Comment on above: Performed By: #### L [id number] #### [facility] [address] [address] Judah Dubose M.D. [id number] Platelets (Bld) [#/Vol] 481 10*3/uL High 150-400 [facility] Comment on above: Performed By: #### L [id number] #### [facility] [address] [address] Judah Dubose M.D. [id number] RBC (Bld) [#/Vol] 4.45 10*6/uL Normal 4.00-5.20 [facility] Comment on above: Performed By: #### L [id number] #### [facility] [address] [address] Judah Dubose M.D. [id number] WBC (Bld) [#/Vol] 12.08 10*3/uL High 4.50-11.00 [facility] Comment on above: Performed By: #### L [id number] #### [facility] [address] [address] Judah Dubose M.D. [id number] CONSULTon 09-14-2024 CONSULT Patient Name: Eric Patel MR #: [id number] : 1985 Physicians: Krystle, Physician (Family); Randy [...] no smoking.. Patient had initially presented at [facility], was found with some Nonspecific right pleural fluid and was transferred to [facility] for continuation of treatment. 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 Small pneumothorax component is unchanged. 2. Ykdi-zj-dsbgtvvf infiltrative changes and atelectasis in the right lower lobe and right middle lobe, unchanged. Ongoing pneumonia/inflammatory airways disease in this area is a consideration. 3. Minimal atelectasis in the left lower lobe. [employer] Workstation ID: [id number] CT Chest Without Contrast Final Result 1. Right chest tube tip positioned in the medial right cardiophrenic region with significant improvement in the right-side (more content not included)... Normal [facility] CRP [Mass/Vol]on 09-14-2024 Interpretation and review of laboratory results Abnormal [facility] CRP, INFLAMMATIONon 09-15-19 25 CRP [Mass/Vol] 57.1 mg/L High 0.0-10.0 [facility] Comment on above: Performed By: #### 4 [id number] #### [facility] [address] [place], [place] [address] Judah Dubose M.D. [id number] CRP, Inflammationon 09-15-19 CRP [Mass/Vol] 57.1 mg/L High 0.0 - 10.0 mg/L [facility] CT CHEST WITH CONTRASTon CT CHEST [...] residual right pleural effusion as well as wveq-ig-kkvetlyr pleural thickening in the inferolateral right chest [...] fissure. Small pneumothorax component is unchanged. 2. Ozio-wt-deljzkol infiltrative changes and atelectasis in the right lower lobe and right middle lobe, unchanged. Ongoing pneumonia/inflammatory airways disease in this area is a consideration. 3. Minimal atelectasis in the left lower lobe. [employer] Workstation ID: [id number] Dictated by: CHANG BLANCHARD on [facility] Sep 14, 2024 2:58:42 PM EDT Transcribed by: VICKI TALBERT on [facility] Sep 14, 2024 3:18:19 PM EDT Finalized by: CHANG BLANCHARD on [facility] Sep 14, 2024 3:33:33 PM EDT Normal [facility] Comment on above: Order Comment: Injur [...] small amount of residual pleural fluid and wfnd-rc-wguzpdfg pleural thickening in the posterolateral right chest, [...] Minimal atelectasis in the left lower lobe. [employer]/ Workstation ID: [id number] Dictated by: CHANG BLANCHARD on [facility] Sep 14, 2024 2:51:32 PM EDT Transcribed by: VICKI TALBERT on MonSep 14, 2024 2:57:15 PM EDT Finalized by: CHANG BLANCHARD on [facility] Sep 14, 2024 2:59:12 PM EDT [facility] Comment on above: Order Comment: Injur [...] fissure. Small pneumothorax component is unchanged. 2. Yhsu-qz-epfdrcpm infiltrative changes and atelectasis in the right lower lobe and right middle lobe, unchanged. Ongoing pneumonia/inflammatory airways disease in this area is a consideration. 3. Minimal atelectasis in the left lower lobe. [employer] Workstation ID: [id number] [employer] EXAMINATION: CT CHEST WITH CONTRAST - 09/14/2024 [...] residual right pleural effusion as well as zude-dp-txdqfbjz pleural thickening in the inferolateral right chest [...] noted. Degenerative changes in the dorsal spine. [facility], Chang Arce MD - 09/14/2024 EXAMINATION: CT [...] residual right pleural effusion as well as xowx-tu-wozwpyzh pleural thickening in the inferolateral right chest [...] fissure. Small pneumothorax component is unchanged. 2. Abwx-qq-shntrxsf infiltrative changes and atelectasis in the right lower lobe and right middle lobe, unchanged. Ongoing pneumonia/inflammatory airways disease in this area is a consideration. 3. Minimal atelectasis in the left lower lobe. [employer] Workstation ID: [id number] [facility] Radiology Study observation (narrative) [facility] CT Chest WO contraston 09-14 1. [...] left lower lobe. [employer] Workstation ID: [id number] [employer] EXAMINATION: CT CHEST WITHOUT CONTRAST - 09/14/2024 [...] small amount of residual pleural fluid and wbdi-kk-mbagvdhv pleural thickening in the posterolateral right chest, [...] the right shoulder joint also again noted. [employer] [facility] Chang Blanchard MD - 09/14/2024 EXAMINATION: CT [...] small amount of residual pleural fluid and loei-jd-lccqtcwj pleural thickening in the posterolateral right chest, [...] Minimal atelectasis in the left lower lobe. [facility] Workstation ID: [id number] [facility] Radiology Study observation (narrative) [facility] HIV 1/2 SCREEN (4TH GENERATI ON)on 09-14-2024 HIV 1-2 SCREEN Negative Normal Negative [facility] Comment on above: Order Comment: This assay screens for the presence of HIV-1, HIV-2 antibodies and for the presence of HIV-1 antigen.Test performed using [employer] immunoassay system Performed By: #### 4 [id number] #### LAB [address] [place], [place] [address] Judah Dubose M.D. [id number] LEGIONELLA ANTIGEN, URINEon 09-14-2024 LEGIONELLA ANTIGEN, URINE LEGIONELLA ANTIGEN Negative for Legionella antigen COMMENT: Results may be affected if patient is on diuretics. INTERPRETATION OF RESULTS: Test detects Legionella pneumophilia serogroup 1 antigens in urine. Legionnaires disease cannot be ruled out since other serogroups and species may also cause disease. [facility] Comment on above: Performed By: #### 4 4090 #### LAB [address] [place], [place] [address] Judah Dubose M.D. [id number] Legionella Antigen, UrineOrd ered By: Dawit Barajas on 09-14-2024 Interpretation and review of laboratory results Normal [facility] L. pneumophila Ag Ql (U) Negative Negative for Legionella antigen [facility] Comment on above: COMMENT: Results may be affected if patient is on diuretics. INTERPRETATION OF RESULTS: Test detects Legionella pneumophilia serogroup 1 antigens in urine. Legionnaires disease cannot be ruled out since other serogroups and species may also cause disease. [facility] S. pneumoniae Urine Antigeno n 09-14-2024 Interpretation and review of laboratory results Normal [facility] S. pneumoniae Ag Ql (U) Negative Presumptive Negative for Pneumococcal pneumoniae [facility] Comment on above: A negative result do es not rule out Streptococcus pneumoniae infection since the antigen present in the sample may be below the detection limit of the test. [facility] S.PNEUMONIAE URINE ANTIGENon 09-14-2024 S.PNEUMONIAE URINE ANTIGEN STREP PNEUMONIAE ANTIGEN, URINE Presumptive Negative for Pneumococcal pneumoniae A negative result does not rule out Streptococcus pneumoniae infection since the antigen present in the sample may be below the detection limit of the test. [facility] Comment on above: Performed By: #### 4 7222 #### LAB [address] [place], [place] [address] Judah Dubose M.D. [id number] BASIC METABOLIC PANELon 08-26-2024 Anion gap [Moles/Vol] 14 mmol/L Normal 10-20 [facility] Comment on above: Order Comment: [facility] has implemented the eGFR calculation approach that does not have a coefficient for race that conforms to the NKF-ASN Task Force Recommendations. Performed By: #### 4 7222 #### LAB [address] [place], [place] [address] Judah Dubose M.D. [id number] Calcium [Mass/Vol] 8.6 mg/dL Normal 8.4-10.2 [facility] Comment on above: Order Comment: [facility] has implemented the eGFR calculation approach that does not have a coefficient for race that conforms to the NKF-ASN Task Force Recommendations. Performed By: #### 4 7222 #### LAB [address] [place] [id number] Judah Dubose M.D. [id number] Chloride [Moles/Vol] 103 mmol/L Normal 98-108 [facility] Comment on above: Order Comment: [facility] has implemented the eGFR calculation approach that does not have a coefficient for race that conforms to the NKF-ASN Task Force Recommendations. Performed By: #### 4 7222 #### LAB [address] [place], [place] [address] Judah Dubose M.D. [id number] Creatinine [Mass/Vol] 0.59 mg/dL Normal 0.40-1.10 [facility] Comment on above: Order Comment: [facility] has implemented the eGFR calculation approach that does not have a coefficient for race that conforms to the NKF-ASN Task Force Recommendations. Performed By: #### 4 7222 #### LAB [address] [place], [place] [address] Judah Dubose M.D. [id number] EGFR 117 mL/min/1.73 m2 Normal >=60 [facility] Comment on above: Order Comment: [facility] has implemented the eGFR calculation approach that does not have a coefficient for race that conforms to the NKF-ASN Task Force Recommendations. Result Comment: Rhea mated GFR was calculated using the 2020 CKD-EPI creatinine equation. Performed By: #### 4 7222 #### LAB [address] [place] [address] Judah Dubose M.D. [id number] Glucose [Mass/Vol] 112 mg/dL High 65-99 [facility] Comment on above: Order Comment: [facility] has implemented the eGFR calculation approach that does not have a coefficient for race that conforms to the NKF-ASN Task Force Recommendations. Performed By: #### 4 7222 #### LAB [address] [place] [address] Judah Dubose M.D. [id number] HCO3 (Bld) [Moles/Vol] 25 mmol/L Normal 21-32 [facility] Comment on above: Order Comment: [facility] has implemented the eGFR calculation approach that does not have a coefficient for race that conforms to the NKF-ASN Task Force Recommendations. Performed By: #### 4 7222 #### LAB [address] [place] [address] Judah Dubose M.D. [id number] Potassium [Moles/Vol] 3.7 mmol/L Normal 3.5-5.1 [facility] Comment on above: Order Comment: [facility] has implemented the eGFR calculation approach that does not have a coefficient for race that conforms to the NKF-ASN Task Force Recommendations. Performed By: #### 4 7222 #### LAB [address] [place] [address] Judah Dubose M.D. [id number] Sodium [Moles/Vol] 138 mmol/L Normal 135-145 [facility] Comment on above: Order Comment: [facility] has implemented the eGFR calculation approach that does not have a coefficient for race that conforms to the NKF-ASN Task Force Recommendations. Performed By: #### 4 7222 #### LAB [address] [place], [place] [address] Judah Dubose M.D. [id number] Urea nitrogen [Mass/Vol] 8 mg/dL Normal 8-25 [facility] Comment on above: Order Comment: [facility] has implemented the eGFR calculation approach that does not have a coefficient for race that conforms to the NKF-ASN Task Force Recommendations. Performed By: #### 4 7222 #### LAB [address] [place], [place] [address] Judah Dubose M.D. [id number] Urea nitrogen/Creatinine [Mass ratio] 13.6 mg/mg Normal 10.0-20.0 [facility] Comment on above: Order Comment: [facility] has implemented the eGFR calculation approach that does not have a coefficient for race that conforms to the NKF-ASN Task Force Recommendations. Performed By: #### 4 7222 #### LAB [address] [place], [place] [address] Judah Dubose M.D. [id number] Basic metabolic 2000 panelon 2024 Anion gap [Moles/Vol] 14 mmol/L 10 - 20 mmol/L [facility] Calcium [Mass/Vol] 8.6 mg/dL 8.4 - 10. 2 mg/dL [facility] Chloride [Moles/Vol] 103 mmol/L 98 - 10 8 mmol/L [facility] Creatinine [Mass/Vol] 0.59 mg/dL 0.40 - 1.10 mg/dL [facility] GFR/1.73 sq M.predicted CKD-EPI (S/P/Bld) [Vol rate/Area] 117 - PINF [facility] Comment on above: Estimated GFR was ca lculated using the 2020 CKD-EPI creatinine equation. Glucose [Mass/Vol] 112 mg/dL High 65 - 99 mg/dL [facility] HCO3 [Moles/Vol] 25 mmol/L 21 - 32 mmol/L [facility] Interpretation and review of laboratory results Abnormal [facility] Potassium [Moles/Vol] 3.7 mmol/L 3.5 - 5.1 mmol/L [facility] Sodium [Moles/Vol] 138 mmol/L 135 - 145 mmol/L [facility] Urea nitrogen [Mass/Vol] 8 mg/dL 8 - 25 mg/dL [facility] Urea nitrogen/Creatinine [Mass ratio] 13.6 mg/mg 10.0 - 20.0 [facility] has implemented the eGFR calculation approach that does not have a coefficient for race that conforms to the NKF-ASN Task Force Recommendations. [facility] CBC Auto Differentialon 08-26 0-2024 Basophils (Bld) [#/Vol] 0.04 10*3/uL [facility] Basophils/100 WBC (Bld) 0.3 % [facility] Eosinophils (Bld) [#/Vol] 0.16 10*3/uL [facility] Eosinophils/100 WBC (Bld) 1.2 % [facility] Erythrocyte distribution width (RBC) [Entitic vol] 12.9 % 11.6 - 14.8 % [facility] Hematocrit (Bld) [Volume fraction] 40.5 % 36.0 - 46.0 % [facility] Hemoglobin (Bld) [Mass/Vol] 13.6 g/dL 12.0 - 16.0 g/dL [facility] Immature granulocytes (Bld) [#/Vol] 0.2 10*3/uL [facility] Immature granulocytes/100 WBC (Bld) 1.5 % [facility] Comment on above: The IG parameter is the percentage of metamyelocytes, myelocytes and promyelocytes. An immature granulocyte count (IG) of 1% or more suggests the possibility of infection, an IG count of 3% is very likely related to an infection. Interpretation and review of laboratory results Abnormal [facility] Lymphocytes (Bld) [#/Vol] 3.08 10*3/uL [facility] Lymphocytes/100 WBC (Bld) 23.6 % [facility] MCH (RBC) [Entitic mass] 29.4 pg 26.0 - 34.0 pg [facility] MCHC (RBC) [Mass/Vol] 33.6 g/dL 31.0 - 37.0 g/dL [facility] MCV (RBC) [Entitic vol] 87.7 fL 80.0 - 100.0 fL [facility] Monocytes (Bld) [#/Vol] 1.21 10*3/uL High [facility] Monocytes/100 WBC (Bld) 9.3 % [facility] Neutrophils (Bld) [#/Vol] 8.37 10*3/uL High [facility] Neutrophils/100 WBC (Bld) 64.1 % [facility] Nucleated RBC (Bld) [#/Vol] 0 10*3/uL [facility] Nucleated RBC/100 WBC (Bld) [Ratio] 0 % [facility] Platelet mean volume (Bld) [Entitic vol] 8.8 fL Low 9.4 - 12.4 fL [facility] Platelets (Bld) [#/Vol] 482 10*3/uL High [facility] RBC (Bld) [#/Vol] 4.62 10*6/uL [facility] WBC (Bld) [#/Vol] 13.06 10*3/uL [facility] CBC WITH AUTO DIFFERENTIALon 2024 AUTO NRBC 0.0 % [facility] Comment on above: Performed By: #### L [id number] #### LAB [address] [place] [address] Judah Dubose M.D. [id number] AUTO NRBC ABS COUNT 0.00 K/mcL Normal 0.00-0.00 [facility] Comment on above: Performed By: #### L [id number] #### LAB [address] [place] [address] Judah Dubose M.D. [id number] BASOPHILS ABSOLUTE COUNT 0.04 K/mcL Normal 0.00-0.30 [facility] Comment on above: Performed By: #### L [id number] #### LAB [address] [place] [address] Judah Dubose M.D. [id number] Basophils/100 WBC (Bld) 0.3 % [facility] Comment on above: Performed By: #### L [id number] #### LAB [address] [place] [address] Judah Dubose M.D. [id number] Eosinophils (Bld) [#/Vol] 0.16 10*3/uL Normal 0.00-0.50 [facility] Comment on above: Performed By: #### L [id number] #### LAB [address] [place] [address] Judah Dubose M.D. [id number] Eosinophils/100 WBC (Bld) 1.2 % Normal [facility] Comment on above: Performed By: #### L [id number] #### LAB [address] [place] [address] Judah Dubose M.D. [id number] Erythrocyte distribution width (RBC) [Ratio] 12.9 % Normal 11.6-14.8 [facility] Comment on above: Performed By: #### L [id number] #### LAB [address] [place] [address] Judah Dubose M.D. [id number] Hematocrit (Bld) [Volume fraction] 40.5 % Normal 36.0-46.0 [facility] Comment on above: Performed By: #### L [id number] #### LAB [address] [place] [address] Judah Dubose M.D. [id number] Hemoglobin (Bld) [Mass/Vol] 13.6 g/dL Normal 12.0-16.0 [facility] Comment on above: Performed By: #### L [id number] #### LAB [address] [place] [address] Judah Dubose M.D. [id number] IG ABSOLUTE 0.20 K/mcL Normal 0.00-0.30 [facility] Comment on above: Performed By: #### L [id number] #### LAB [address] [place] [address] Judah Dubose M.D. [id number] IG PERCENT 1.50 % Normal [facility] Comment on above: Result Comment: The IG parameter is the percentage of metamyelocytes, myelocytes and promyelocytes. An immature granulocyte count (IG) of 1% or more suggests the possibility of infection, an IG count of 3% is very likely related to an infection. Performed By: #### L [id number] #### LAB [address] [place] [address] Judah Dubose M.D. [id number] Lymphocytes (Bld) [#/Vol] 3.08 10*3/uL Normal 0.90-4.00 [facility] Comment on above: Performed By: #### L [id number] #### MH LAB [address] [place] [address] Judah Dubose M.D. [id number] Lymphocytes/100 WBC (Bld) 23.6 % Normal [facility] Comment on above: Performed By: #### L [id number] #### LAB [address] [place] [address] Judah Dubose M.D. [id number] MCH (RBC) [Entitic mass] 29.4 pg Normal 26.0-34.0 [facility] Comment on above: Performed By: #### L [id number] #### LAB [address] [place] [address] Judah Dubose M.D. [id number] MCV (RBC) [Entitic vol] 87.7 fL Normal 80.0-100.0 [facility] Comment on above: Performed By: #### L [id number] #### LAB [address] [place] [address] Judah Dubose M.D. [id number] MEAN CORPUSCULAR HEMOGLOBIN CONC 33.6 g/dL Normal 31.0-37.0 [facility] Comment on above: Performed By: #### L [id number] #### LAB [address] [place] [address] Judha Dubose M.D. [id number] Monocytes (Bld) [#/Vol] 1.21 10*3/uL High 0.30-0.90 [facility] Comment on above: Performed By: #### L [id number] #### LAB [address] [place] [address] Judah Dubose M.D. [id number] Monocytes/100 WBC (Bld) 9.3 % Normal [facility] Comment on above: Performed By: #### L [id number] #### LAB [address] [place] [address] Judah Dubose M.D. [id number] NEUTROPHILS ABSOLUTE COUNT 8.37 K/mcL High 1.70-7.00 [facility] Comment on above: Performed By: #### L [id number] #### LAB [address] [place] [address] Judah Dubose M.D. [id number] Neutrophils/100 WBC (Bld) 64.1 % Normal [facility] Comment on above: Performed By: #### L [id number] #### LAB [address] [place] [address] Judah Dubose M.D. [id number] Platelet mean volume (Bld) [Entitic vol] 8.8 fL Low 9.4-12.4 [facility] Comment on above: Performed By: #### L [id number] #### MH LAB [address] [place] [address] Judah Dubose M.D. [id number] Platelets (Bld) [#/Vol] 482 10*3/uL High 150-400 [facility] Comment on above: Performed By: #### L [id number] #### LAB [address] [place] [address] Judah Dubose M.D. [id number] RBC (Bld) [#/Vol] 4.62 10*6/uL Normal 4.00-5.20 [facility] Comment on above: Performed By: #### L [id number] #### MH LAB [address] [place] [address] Judah Dubose M.D. [id number] WBC (Bld) [#/Vol] 13.06 10*3/uL High 4.50-11.00 [facility] Comment on above: Performed By: #### L [id number] #### LAB [address] [place] [address] Judah Dubose M.D. [id number] XR CHEST PA/APon 2024 XR CHEST PA/AP [...] on MonSep 13, 2024 8:27:46 PM EDT [facility] Comment on above: Order Comment: Injur [...] and pleural effusion. No significant pneumothorax identified. Aplicor/N4G.come Workstation ID: [id number] [facility] Radiology Study observation (narrative) [facility] BASIC METABOLIC PANELon 08-25 Anion gap [Moles/Vol] 13 mmol/L Normal 10-20 [facility] Comment on above: Order Comment: [facility] has implemented the eGFR calculation approach that does not have a coefficient for race that conforms to the NKF-ASN Task Force Recommendations. Performed By: #### 4 7222 #### LAB [address] [place], [place] [address] Judah Dubose M.D. [id number] Calcium [Mass/Vol] 8.3 mg/dL Low 8.4-10.2 [facility] Comment on above: Order Comment: [facility] has implemented the eGFR calculation approach that does not have a coefficient for race that conforms to the NKF-ASN Task Force Recommendations. Performed By: #### 4 7222 #### LAB [address] [place], [place] [address] Judah Dubose M.D. [id number] Chloride [Moles/Vol] 106 mmol/L Normal 98-108 [facility] Comment on above: Order Comment: [facility] has implemented the eGFR calculation approach that does not have a coefficient for race that conforms to the NKF-ASN Task Force Recommendations. Performed By: #### 4 7222 #### LAB [address] [place] [address] Judah Dubose M.D. [id number] Creatinine [Mass/Vol] 0.65 mg/dL Normal 0.40-1.10 [facility] Comment on above: Order Comment: [facility] has implemented the eGFR calculation approach that does not have a coefficient for race that conforms to the NKF-ASN Task Force Recommendations. Performed By: #### 4 7222 #### LAB [address] [place] [address] Judah Dubose M.D. [id number] EGFR 115 mL/min/1.73 m2 Normal >=60 [facility] Comment on above: Order Comment: [facility] has implemented the eGFR calculation approach that does not have a coefficient for race that conforms to the NKF-ASN Task Force Recommendations. Result Comment: Rhea mated GFR was calculated using the 2020 CKD-EPI creatinine equation. Performed By: #### 4 7222 #### LAB [address] [place] [address] Judah Dubose M.D. [id number] Glucose [Mass/Vol] 96 mg/dL Normal 65-99 [facility] Comment on above: Order Comment: [facility] has implemented the eGFR calculation approach that does not have a coefficient for race that conforms to the NKF-ASN Task Force Recommendations. Performed By: #### 4 7222 #### LAB [address] [place] [address] Judah Dubose M.D. [id number] HCO3 (Bld) [Moles/Vol] 25 mmol/L Normal 21-32 [facility] Comment on above: Order Comment: [facility] has implemented the eGFR calculation approach that does not have a coefficient for race that conforms to the NKF-ASN Task Force Recommendations. Performed By: #### 4 7222 #### LAB [address] [place] [address] Judah Dubose M.D. [id number] Potassium [Moles/Vol] 3.5 mmol/L Normal 3.5-5.1 [facility] Comment on above: Order Comment: [facility] has implemented the eGFR calculation approach that does not have a coefficient for race that conforms to the NKF-ASN Task Force Recommendations. Performed By: #### 4 7222 #### LAB [address] [place], [place] [address] Judah Dubose M.D. [id number] Sodium [Moles/Vol] 140 mmol/L Normal 135-145 [facility] Comment on above: Order Comment: [facility] has implemented the eGFR calculation approach that does not have a coefficient for race that conforms to the NKF-ASN Task Force Recommendations. Performed By: #### 4 7222 #### LAB [address] [place], [place] [address] Judah Dubose M.D. [id number] Urea nitrogen [Mass/Vol] 8 mg/dL Normal 8-25 [facility] Comment on above: Order Comment: [facility] has implemented the eGFR calculation approach that does not have a coefficient for race that conforms to the NKF-ASN Task Force Recommendations. Performed By: #### 4 7222 #### LAB [address] [place], [place] [address] Judah Dubose M.D. [id number] Urea nitrogen/Creatinine [Mass ratio] 12.3 mg/mg Normal 10.0-20.0 [facility] Comment on above: Order Comment: [facility] has implemented the eGFR calculation approach that does not have a coefficient for race that conforms to the NKF-ASN Task Force Recommendations. Performed By: #### 4 7222 #### LAB [address] [place], [place] [address] Judah Dubose M.D. [id number] Basic metabolic 2000 panelon 09-12-2024 Anion gap [Moles/Vol] 13 mmol/L 10 - 20 mmol/L [facility] Calcium [Mass/Vol] 8.3 mg/dL Low 8.4 - 10. 2 mg/dL [facility] Chloride [Moles/Vol] 106 mmol/L 98 - 10 8 mmol/L [facility] Creatinine [Mass/Vol] 0.65 mg/dL 0.40 - 1.10 mg/dL [facility] GFR/1.73 sq M.predicted CKD-EPI (S/P/Bld) [Vol rate/Area] 115 - PINF [facility] Comment on above: Estimated GFR was ca lculated using the 2020 CKD-EPI creatinine equation. Glucose [Mass/Vol] 96 mg/dL 65 - 99 mg/dL [facility] HCO3 [Moles/Vol] 25 mmol/L 21 - 32 mmol/L [facility] Interpretation and review of laboratory results Abnormal [facility] Potassium [Moles/Vol] 3.5 mmol/L 3.5 - 5.1 mmol/L [facility] Sodium [Moles/Vol] 140 mmol/L 135 - 145 mmol/L [facility] Urea nitrogen [Mass/Vol] 8 mg/dL 8 - 25 mg/dL [facility] Urea nitrogen/Creatinine [Mass ratio] 12.3 mg/mg 10.0 - 20.0 [facility] has implemented the eGFR calculation approach that does not have a coefficient for race that conforms to the NKF-ASN Task Force Recommendations. [facility] CBC Auto Differentialon 08-25 Basophils (Bld) [#/Vol] 0.04 10*3/uL [facility] Basophils/100 WBC (Bld) 0.3 % [facility] Eosinophils (Bld) [#/Vol] 0.03 10*3/uL [facility] Eosinophils/100 WBC (Bld) 0.2 % [facility] Erythrocyte distribution width (RBC) [Entitic vol] 12.6 % 11.6 - 14.8 % [facility] Hematocrit (Bld) [Volume fraction] 38 % 36.0 - 46.0 % [facility] Hemoglobin (Bld) [Mass/Vol] 12.4 g/dL 12.0 - 16.0 g/dL [facility] Immature granulocytes (Bld) [#/Vol] 0.21 10*3/uL [facility] Immature granulocytes/100 WBC (Bld) 1.4 % [facility] Comment on above: The IG parameter is the percentage of metamyelocytes, myelocytes and promyelocytes. An immature granulocyte count (IG) of 1% or more suggests the possibility of infection, an IG count of 3% is very likely related to an infection. Interpretation and review of laboratory results Abnormal [facility] Lymphocytes (Bld) [#/Vol] 2.94 10*3/uL [facility] Lymphocytes/100 WBC (Bld) 19.9 % [facility] MCH (RBC) [Entitic mass] 29 pg 26.0 - 34.0 pg [facility] MCHC (RBC) [Mass/Vol] 32.6 g/dL 31.0 - 37.0 g/dL [facility] MCV (RBC) [Entitic vol] 88.8 fL 80.0 - 100.0 fL [facility] Monocytes (Bld) [#/Vol] 1.27 10*3/uL High [facility] Monocytes/100 WBC (Bld) 8.6 % [facility] Neutrophils (Bld) [#/Vol] 10.31 10*3/uL High [facility] Neutrophils/100 WBC (Bld) 69.6 % [facility] Nucleated RBC (Bld) [#/Vol] 0 10*3/uL [facility] Nucleated RBC/100 WBC (Bld) [Ratio] 0 % [facility] Platelet mean volume (Bld) [Entitic vol] 9 fL Low 9.4 - 12.4 fL [facility] Platelets (Bld) [#/Vol] 435 10*3/uL High [facility] RBC (Bld) [#/Vol] 4.28 10*6/uL [facility] WBC (Bld) [#/Vol] 14.8 10*3/uL High [facility] CBC WITH AUTO DIFFERENTIALon 09-12-2024 AUTO NRBC 0.0 % Normal [facility] Comment on above: Performed By: #### 4 4090 #### LAB [address] [place] [address] Judah Dubose M.D. [id number] AUTO NRBC ABS COUNT 0.00 K/mcL Normal 0.00-0.00 [facility] Comment on above: Performed By: #### 4 4090 #### LAB [address] [place] [address] Judah Dubose M.D. [id number] BASOPHILS ABSOLUTE COUNT 0.04 K/mcL Normal 0.00-0.30 [facility] Comment on above: Performed By: #### 4 4090 #### LAB [address] [place] [address] Judah Dubose M.D. [id number] Basophils/100 WBC (Bld) 0.3 % Normal [facility] Comment on above: Performed By: #### 4 4090 #### LAB [address] [place] [address] Judah Dubose M.D. [id number] Eosinophils (Bld) [#/Vol] 0.03 10*3/uL Normal 0.00-0.50 [facility] Comment on above: Performed By: #### 4 4090 #### LAB [address] [place] [address] Judah Dubose M.D. [id number] Eosinophils/100 WBC (Bld) 0.2 % Normal [facility] Comment on above: Performed By: #### 4 4090 #### LAB [address] [place] [address] Judah Dubose M.D. [id number] Erythrocyte distribution width (RBC) [Ratio] 12.6 % Normal 11.6-14.8 [facility] Comment on above: Performed By: #### 4 4090 #### LAB [address] [place] [address] Judah Dubose M.D. [id number] Hematocrit (Bld) [Volume fraction] 38.0 % Normal 36.0-46.0 [facility] Comment on above: Performed By: #### 4 4090 #### LAB [address] [place] [address] Judah Dubose M.D. [id number] Hemoglobin (Bld) [Mass/Vol] 12.4 g/dL Normal 12.0-16.0 [facility] Comment on above: Performed By: #### 4 4090 #### LAB [address] [place] [address] Judah Dubose M.D. [id number] IG ABSOLUTE 0.21 K/mcL Normal 0.00-0.30 [facility] Comment on above: Performed By: #### 4 4090 #### LAB [address] [place] [address] Judah Dubose M.D. [id number] IG PERCENT 1.40 % Normal [facility] Comment on above: Result Comment: The IG parameter is the percentage of metamyelocytes, myelocytes and promyelocytes. An immature granulocyte count (IG) of 1% or more suggests the possibility of infection, an IG count of 3% is very likely related to an infection. Performed By: #### 4 4090 #### LAB [address] [place] [address] Judah Dubose M.D. [id number] Lymphocytes (Bld) [#/Vol] 2.94 10*3/uL Normal 0.90-4.00 [facility] Comment on above: Performed By: #### 4 4090 #### LAB [address] [place] [address] Judah Dubose M.D. [id number] Lymphocytes/100 WBC (Bld) 19.9 % Normal [facility] Comment on above: Performed By: #### 4 4090 #### LAB [address] [place] [address] Judah Dubose M.D. [id number] MCH (RBC) [Entitic mass] 29.0 pg Normal 26.0-34.0 [facility] Comment on above: Performed By: #### 4 4090 #### LAB [address] [place] [address] Judah Dubose M.D. [id number] MCV (RBC) [Entitic vol] 88.8 fL Normal 80.0-100.0 [facility] Comment on above: Performed By: #### 4 4090 #### LAB [address] [place] [address] Judah Dubose M.D. [id number] MEAN CORPUSCULAR HEMOGLOBIN CONC 32.6 g/dL Normal 31.0-37.0 [facility] Comment on above: Performed By: #### 4 4090 #### LAB [address] [place] [address] Judah Dubose M.D. [id number] Monocytes (Bld) [#/Vol] 1.27 10*3/uL High 0.30-0.90 [facility] Comment on above: Performed By: #### 4 4090 #### LAB [address] [place] [address] Judah Dubose M.D. [id number] Monocytes/100 WBC (Bld) 8.6 % Normal [facility] Comment on above: Performed By: #### 4 4090 #### LAB [address] [address] Judah Dubose M.D. [id number] NEUTROPHILS ABSOLUTE COUNT 10.31 K/mcL High 1.70-7.00 [facility] Comment on above: Performed By: #### 4 4090 #### LAB [address] [address] Judah Dubose M.D. [id number] Neutrophils/100 WBC (Bld) 69.6 % [facility] Comment on above: Performed By: #### 4 4090 #### LAB [address] [address] Judah Dubose M.D. [id number] Platelet mean volume (Bld) [Entitic vol] 9.0 fL Low 9.4-12.4 [facility] Comment on above: Performed By: #### 4 4090 #### LAB [address] [address] Judah Dubose M.D. [id number] Platelets (Bld) [#/Vol] 435 10*3/uL High 150-400 [facility] Comment on above: Performed By: #### 4 4090 #### LAB [address] [address] Judah Dubose M.D. [id number] RBC (Bld) [#/Vol] 4.28 10*6/uL Normal 4.00-5.20 [facility] Comment on above: Performed By: #### 4 4090 #### LAB [address] [address] Judah Dubose M.D. [id number] WBC (Bld) [#/Vol] 14.80 10*3/uL High 4.50-11.00 [facility] Comment on above: Performed By: #### 4 4090 #### LAB [address] [address] Judah Dubose M.D. [id number] XR CHEST PA/APon 09-12-2024 XR CHEST PA/AP [...] MonSep 12, 2024 6:45:38 AM EDT Normal [facility] Comment on above: Order Comment: Injur [...] the right mid chest. Workstation ID: [id number] [employer] EXAMINATION: XR CHEST PA/AP HISTORY: ORDERING SYSTEM [...] the right mid chest. Workstation ID: [id number] [facility] Radiology Study observation (narrative) [facility] XR Chest PA and Abdomen APOr dered By: Tomás Messina on 09-12-2024 [facility] Work Phone: BASIC METABOLIC PANELon 08-25 Anion gap [Moles/Vol] 11 mmol/L Normal 10-20 [facility] Comment on above: Order Comment: [facility] has implemented the eGFR calculation approach that does not have a coefficient for race that conforms to the NKF-ASN Task Force Recommendations. Performed By: #### 4 4090 #### LAB [address] [place], [place] [address] Judah Dubose M.D. [id number] Calcium [Mass/Vol] 8.3 mg/dL Low 8.4-10.2 [facility] Comment on above: Order Comment: [facility] has implemented the eGFR calculation approach that does not have a coefficient for race that conforms to the NKF-ASN Task Force Recommendations. Performed By: #### 4 4090 #### LAB [address] [place], [place] [address] Judah Dubose M.D. [id number] Chloride [Moles/Vol] 106 mmol/L Normal 98-108 [facility] Comment on above: Order Comment: [facility] has implemented the eGFR calculation approach that does not have a coefficient for race that conforms to the NKF-ASN Task Force Recommendations. Performed By: #### 4 4090 #### LAB [address] [place], [place] [address] Judah Dubose M.D. [id number] Creatinine [Mass/Vol] 0.69 mg/dL Normal 0.40-1.10 [facility] Comment on above: Order Comment: [facility] has implemented the eGFR calculation approach that does not have a coefficient for race that conforms to the NKF-ASN Task Force Recommendations. Performed By: #### 4 4090 #### LAB [address] [place], [place] [address] Judah Dubose M.D. [id number] EGFR 113 mL/min/1.73 m2 Normal >=60 [facility] Comment on above: Order Comment: [facility] has implemented the eGFR calculation approach that does not have a coefficient for race that conforms to the NKF-ASN Task Force Recommendations. Result Comment: Rhea mated GFR was calculated using the 2020 CKD-EPI creatinine equation. Performed By: #### 4 4090 #### LAB [address] [place], [place] [address] Judah Dubose M.D. [id number] Glucose [Mass/Vol] 114 mg/dL High 65-99 [facility] Comment on above: Order Comment: [facility] has implemented the eGFR calculation approach that does not have a coefficient for race that conforms to the NKF-ASN Task Force Recommendations. Performed By: #### 4 4090 #### LAB [address] [place], [place] [address] Judah Dubose M.D. [id number] HCO3 (Bld) [Moles/Vol] 26 mmol/L Normal 21-32 [facility] Comment on above: Order Comment: [facility] has implemented the eGFR calculation approach that does not have a coefficient for race that conforms to the NKF-ASN Task Force Recommendations. Performed By: #### 4 4090 #### LAB [address] [place], [place] [address] Judah Dubose M.D. [id number] Potassium [Moles/Vol] 3.5 mmol/L Normal 3.5-5.1 [facility] Comment on above: Order Comment: [facility] has implemented the eGFR calculation approach that does not have a coefficient for race that conforms to the NKF-ASN Task Force Recommendations. Performed By: #### 4 4090 #### LAB [address] [address] Judah Dubose M.D. [id number] Sodium [Moles/Vol] 139 mmol/L Normal 135-145 [facility] Comment on above: Order Comment: [facility] has implemented the eGFR calculation approach that does not have a coefficient for race that conforms to the NKF-ASN Task Force Recommendations. Performed By: #### 4 4090 #### LAB [address] [address] Judah Dubose M.D. [id number] Urea nitrogen [Mass/Vol] 10 mg/dL Normal 8-25 [facility] Comment on above: Order Comment: [facility] has implemented the eGFR calculation approach that does not have a coefficient for race that conforms to the NKF-ASN Task Force Recommendations. Performed By: #### 4 4090 #### LAB [address] [address] Judah Dubose M.D. [id number] Urea nitrogen/Creatinine [Mass ratio] 14.5 mg/mg Normal 10.0-20.0 [facility] Comment on above: Order Comment: [facility] has implemented the eGFR calculation approach that does not have a coefficient for race that conforms to the NKF-ASN Task Force Recommendations. Performed By: #### 4 4090 #### LAB [address] [place], [place] [address] Judah Dubose M.D. [id number] Basic metabolic 2000 panelon 09-11-2024 Anion gap [Moles/Vol] 11 mmol/L 10 - 20 mmol/L [facility] Calcium [Mass/Vol] 8.3 mg/dL Low 8.4 - 10. 2 mg/dL [facility] Chloride [Moles/Vol] 106 mmol/L 98 - 10 8 mmol/L [facility] Creatinine [Mass/Vol] 0.69 mg/dL 0.40 - 1.10 mg/dL [facility] GFR/1.73 sq M.predicted CKD-EPI (S/P/Bld) [Vol rate/Area] 113 - PINF [facility] Comment on above: Estimated GFR was ca lculated using the 2020 CKD-EPI creatinine equation. Glucose [Mass/Vol] 114 mg/dL High 65 - 99 mg/dL [facility] HCO3 [Moles/Vol] 26 mmol/L 21 - 32 mmol/L [facility] Interpretation and review of laboratory results Abnormal [facility] Potassium [Moles/Vol] 3.5 mmol/L 3.5 - 5.1 mmol/L [facility] Sodium [Moles/Vol] 139 mmol/L 135 - 145 mmol/L [facility] Urea nitrogen [Mass/Vol] 10 mg/dL 8 - 25 mg/dL [facility] Urea nitrogen/Creatinine [Mass ratio] 14.5 mg/mg 10.0 - 20.0 [facility] has implemented the eGFR calculation approach that does not have a coefficient for race that conforms to the NKF-ASN Task Force Recommendations. [facility] CBCon 09-11-2024 AUTO NRBC 0.0 % Normal [facility] Comment on above: Performed By: #### 4 4090 #### LAB [address] [place], [place] [address] Judah Dubose M.D. [id number] AUTO NRBC ABS COUNT 0.00 K/mcL Normal 0.00-0.00 [facility] Comment on above: Performed By: #### 4 4090 #### LAB [address] [address] Judah Dubose M.D. [id number] Erythrocyte distribution width (RBC) [Ratio] 12.6 % Normal 11.6-14.8 [facility] Comment on above: Performed By: #### 4 4090 #### LAB [address] [address] Judah Dubose M.D. [id number] Hematocrit (Bld) [Volume fraction] 37.3 % Normal 36.0-46.0 [facility] Comment on above: Performed By: #### 4 4090 #### LAB [address] [address] Judah Dubose M.D. [id number] Hemoglobin (Bld) [Mass/Vol] 12.2 g/dL Normal 12.0-16.0 [facility] Comment on above: Performed By: #### 4 4090 #### LAB [address] [address] Judah Dubose M.D. [id number] MCH (RBC) [Entitic mass] 29.2 pg Normal 26.0-34.0 [facility] Comment on above: Performed By: #### 4 4090 #### LAB [address] [address] Judah Dubose M.D. [id number] MCV (RBC) [Entitic vol] 89.2 fL Normal 80.0-100.0 [facility] Comment on above: Performed By: #### 4 4090 #### LAB [address] [address] Judah Dubose M.D. [id number] MEAN CORPUSCULAR HEMOGLOBIN CONC 32.7 g/dL Normal 31.0-37.0 [facility] Comment on above: Performed By: #### 4 4090 #### LAB [address] [address] Judah Dubose M.D. [id number] Platelet mean volume (Bld) [Entitic vol] 9.0 fL Low 9.4-12.4 [facility] Comment on above: Performed By: #### 4 4090 #### LAB [address] [place], [place] [address] Judah Dubose M.D. [id number] Platelets (Bld) [#/Vol] 446 10*3/uL High 150-400 [facility] Comment on above: Performed By: #### 4 4090 #### LAB [address] [address] Judah Dubose M.D. [id number] RBC (Bld) [#/Vol] 4.18 10*6/uL Normal 4.00-5.20 [facility] Comment on above: Performed By: #### 4 4090 #### LAB [address] [place], [place] [address] Judah Dubose M.D. [id number] WBC (Bld) [#/Vol] 15.97 10*3/uL High 4.50-11.00 [facility] Comment on above: Performed By: #### 4 4090 #### LAB [address] [address] Judah Dubose M.D. [id number] CBC panel Auto (Bld)on 09-11 Erythrocyte distribution width (RBC) [Entitic vol] 12.6 % 11.6 - 14.8 % [facility] Hematocrit (Bld) [Volume fraction] 37.3 % 36.0 - 46.0 % [facility] Hemoglobin (Bld) [Mass/Vol] 12.2 g/dL 12.0 - 16.0 g/dL [facility] Interpretation and review of laboratory results Abnormal [facility] MCH (RBC) [Entitic mass] 29.2 pg 26.0 - 34.0 pg [facility] MCHC (RBC) [Mass/Vol] 32.7 g/dL 31.0 - 37.0 g/dL [facility] MCV (RBC) [Entitic vol] 89.2 fL 80.0 - 100.0 fL [facility] Nucleated RBC (Bld) [#/Vol] 0 10*3/uL [facility] Nucleated RBC/100 WBC (Bld) [Ratio] 0 % [facility] Platelet mean volume (Bld) [Entitic vol] 9 fL Low 9.4 - 12.4 fL [facility] Platelets (Bld) [#/Vol] 446 10*3/uL High [facility] RBC (Bld) [#/Vol] 4.18 10*6/uL [facility] WBC (Bld) [#/Vol] 15.97 10*3/uL [facility] XR CHEST PA/APon 09-11-2024 XR CHEST [...] on MonSep 11, 2024 11:54:24 AM EDT [facility] Comment on above: Order Comment: Injur [...] the right costophrenic sulcus. Workstation ID: [id number] [facility] Radiology Study observation (narrative) [facility] XR Chest PA and Abdomen APOr dered By: Adiran Gerber on 09-11-2024 [facility] Work Phone: BASIC METABOLIC PANELon 08-25 Anion gap [Moles/Vol] 10 mmol/L Normal 10-20 [facility] Comment on above: Order Comment: Injur y/Trauma or Illness?:Illness/Other How long have you had these symptoms (acute/chronic)?:Acute Reason for exam?:Chest tube/empyema History of cancer?:u Surgeries, chemotherapy, or radiation?:u Type of Exam?:Ongoing Additional signs and symptoms?:Chest tube/empyema Performed By: #### 4 6124 #### LAB [address] [address] Judah Dubose M.D. [id number] Calcium [Mass/Vol] 8.1 mg/dL Low 8.4-10.2 [facility] Comment on above: Order Comment: Injur y/Trauma or Illness?:Illness/Other How long have you had these symptoms (acute/chronic)?:Acute Reason for exam?:Chest tube/empyema History of cancer?:u Surgeries, chemotherapy, or radiation?:u Type of Exam?:Ongoing Additional signs and symptoms?:Chest tube/empyema Performed By: #### 4 6124 #### LAB [address] [address] Judah Dubose M.D. [id number] Chloride [Moles/Vol] 110 mmol/L High 98-108 [facility] Comment on above: Order Comment: Injur y/Trauma or Illness?:Illness/Other How long have you had these symptoms (acute/chronic)?:Acute Reason for exam?:Chest tube/empyema History of cancer?:u Surgeries, chemotherapy, or radiation?:u Type of Exam?:Ongoing Additional signs and symptoms?:Chest tube/empyema Performed By: #### 4 6124 #### LAB [address] [address] Judah Dubose M.D. [id number] Creatinine [Mass/Vol] 0.70 mg/dL Normal 0.40-1.10 [facility] Comment on above: Order Comment: Injur y/Trauma or Illness?:Illness/Other How long have you had these symptoms (acute/chronic)?:Acute Reason for exam?:Chest tube/empyema History of cancer?:u Surgeries, chemotherapy, or radiation?:u Type of Exam?:Ongoing Additional signs and symptoms?:Chest tube/empyema Performed By: #### 4 6172 #### LAB [address] [address] Judah Dubose M.D. [id number] EGFR 113 mL/min/1.73 m2 Normal >=60 [facility] Comment on above: Order Comment: Injur y/Trauma or Illness?:Illness/Other How long have you had these symptoms (acute/chronic)?:Acute Reason for exam?:Chest tube/empyema History of cancer?:u Surgeries, chemotherapy, or radiation?:u Type of Exam?:Ongoing Additional signs and symptoms?:Chest tube/empyema Result Comment: Rhea mated GFR was calculated using the 2020 CKD-EPI creatinine equation. Performed By: #### 4 6138 #### LAB [address] [address] Judah Dubose M.D. [id number] Glucose [Mass/Vol] 129 mg/dL High 65-99 [facility] Comment on above: Order Comment: Injur y/Trauma or Illness?:Illness/Other How long have you had these symptoms (acute/chronic)?:Acute Reason for exam?:Chest tube/empyema History of cancer?:u Surgeries, chemotherapy, or radiation?:u Type of Exam?:Ongoing Additional signs and symptoms?:Chest tube/empyema Performed By: #### 4 6124 #### LAB [address] [address] Judah Dubose M.D. [id number] HCO3 (Bld) [Moles/Vol] 26 mmol/L Normal 21-32 [facility] Comment on above: Order Comment: Injur y/Trauma or Illness?:Illness/Other How long have you had these symptoms (acute/chronic)?:Acute Reason for exam?:Chest tube/empyema History of cancer?:u Surgeries, chemotherapy, or radiation?:u Type of Exam?:Ongoing Additional signs and symptoms?:Chest tube/empyema Performed By: #### 4 6124 #### LAB [address] [place], [place] [address] Judah Dubose M.D. [id number] Potassium [Moles/Vol] 3.4 mmol/L Low 3.5-5.1 [facility] Comment on above: Order Comment: Injur y/Trauma or Illness?:Illness/Other How long have you had these symptoms (acute/chronic)?:Acute Reason for exam?:Chest tube/empyema History of cancer?:u Surgeries, chemotherapy, or radiation?:u Type of Exam?:Ongoing Additional signs and symptoms?:Chest tube/empyema Performed By: #### 4 6183 #### LAB [address] [address] Judah Dubose M.D. [id number] Sodium [Moles/Vol] 143 mmol/L Normal 135-145 [facility] Comment on above: Order Comment: Injur y/Trauma or Illness?:Illness/Other How long have you had these symptoms (acute/chronic)?:Acute Reason for exam?:Chest tube/empyema History of cancer?:u Surgeries, chemotherapy, or radiation?:u Type of Exam?:Ongoing Additional signs and symptoms?:Chest tube/empyema Performed By: #### 4 6124 #### LAB [address] [address] Judah Dubose M.D. [id number] Urea nitrogen [Mass/Vol] 14 mg/dL Normal 8-25 [facility] Comment on above: Order Comment: Injur y/Trauma or Illness?:Illness/Other How long have you had these symptoms (acute/chronic)?:Acute Reason for exam?:Chest tube/empyema History of cancer?:u Surgeries, chemotherapy, or radiation?:u Type of Exam?:Ongoing Additional signs and symptoms?:Chest tube/empyema Performed By: #### 4 6124 #### LAB [address] [address] Judah Dubose M.D. [id number] Urea nitrogen/Creatinine [Mass ratio] 20.0 mg/mg Normal 10.0-20.0 [facility] Comment on above: Order Comment: Injur y/Trauma or Illness?:Illness/Other How long have you had these symptoms (acute/chronic)?:Acute Reason for exam?:Chest tube/empyema History of cancer?:u Surgeries, chemotherapy, or radiation?:u Type of Exam?:Ongoing Additional signs and symptoms?:Chest tube/empyema Performed By: #### 4 6124 #### LAB [address] [address] Judah Dubose M.D. [id number] Basic metabolic 2000 panelon 09-10-2024 Anion gap [Moles/Vol] 10 mmol/L 10 - 20 mmol/L [facility] Calcium [Mass/Vol] 8.1 mg/dL Low 8.4 - 10. 2 mg/dL [facility] Chloride [Moles/Vol] 110 mmol/L High 98 - 10 8 mmol/L [facility] Creatinine [Mass/Vol] 0.7 mg/dL 0.40 - 1.10 mg/dL [facility] GFR/1.73 sq M.predicted CKD-EPI (S/P/Bld) [Vol rate/Area] 113 - PINF [facility] Comment on above: Estimated GFR was ca lculated using the 2020 CKD-EPI creatinine equation. Glucose [Mass/Vol] 129 mg/dL High 65 - 99 mg/dL [facility] HCO3 [Moles/Vol] 26 mmol/L 21 - 32 mmol/L [facility] Interpretation and review of laboratory results Abnormal [facility] Potassium [Moles/Vol] 3.4 mmol/L Low 3.5 - 5.1 mmol/L [facility] Sodium [Moles/Vol] 143 mmol/L 135 - 145 mmol/L [facility] Urea nitrogen [Mass/Vol] 14 mg/dL 8 - 25 mg/dL [facility] Urea nitrogen/Creatinine [Mass ratio] 20 mg/mg 10.0 - 20.0 [facility] has implemented the eGFR calculation approach that does not have a coefficient for race that conforms to the NKF-ASN Task Force Recommendations. [facility] CBC Auto Differentialon 08-25 Basophils (Bld) [#/Vol] 0.03 10*3/uL [facility] Basophils/100 WBC (Bld) 0.2 % [facility] Eosinophils (Bld) [#/Vol] 0.04 10*3/uL [facility] Eosinophils/100 WBC (Bld) 0.3 % [facility] Erythrocyte distribution width (RBC) [Entitic vol] 12.6 % 11.6 - 14.8 % [facility] Hematocrit (Bld) [Volume fraction] 37.5 % 36.0 - 46.0 % [facility] Hemoglobin (Bld) [Mass/Vol] 12 g/dL 12.0 - 16.0 g/dL [facility] Immature granulocytes (Bld) [#/Vol] 0.14 10*3/uL [facility] Immature granulocytes/100 WBC (Bld) 0.9 % [facility] Comment on above: The IG parameter is the percentage of metamyelocytes, myelocytes and promyelocytes. An immature granulocyte count (IG) of 1% or more suggests the possibility of infection, an IG count of 3% is very likely related to an infection. Interpretation and review of laboratory results Abnormal [facility] Lymphocytes (Bld) [#/Vol] 2.29 10*3/uL [facility] Lymphocytes/100 WBC (Bld) 14.8 % [facility] MCH (RBC) [Entitic mass] 29 pg 26.0 - 34.0 pg [facility] MCHC (RBC) [Mass/Vol] 32 g/dL 31.0 - 37.0 g/dL [facility] MCV (RBC) [Entitic vol] 90.6 fL 80.0 - 100.0 fL [facility] Monocytes (Bld) [#/Vol] 0.95 10*3/uL High [facility] Monocytes/100 WBC (Bld) 6.1 % [facility] Neutrophils (Bld) [#/Vol] 12.05 10*3/uL High [facility] Neutrophils/100 WBC (Bld) 77.7 % [facility] Nucleated RBC (Bld) [#/Vol] 0 10*3/uL [facility] Nucleated RBC/100 WBC (Bld) [Ratio] 0 % [facility] Platelet mean volume (Bld) [Entitic vol] 9.1 fL Low 9.4 - 12.4 fL [facility] Platelets (Bld) [#/Vol] 439 10*3/uL [facility] RBC (Bld) [#/Vol] 4.14 10*6/uL [facility] WBC (Bld) [#/Vol] 15.5 10*3/uL High [facility] CBC WITH AUTO DIFFERENTIALon 09-10-2024 AUTO NRBC 0.0 % Normal [facility] Comment on above: Performed By: #### 4 9427 #### [facility] [address] [place] [id number] Eliazar Franks M.D. [id number] AUTO NRBC ABS COUNT 0.00 K/mcL Normal 0.00-0.00 [facility] Comment on above: Performed By: #### 4 9986 #### [facility] [address] [place] [address] Eliazar Franks M.D. [id number] BASOPHILS ABSOLUTE COUNT 0.03 K/mcL Normal 0.00-0.30 [facility] Comment on above: Performed By: #### 4 4016 #### [facility] [address] [place], [place] [address] Eliazar Franks M.D. [id number] Basophils/100 WBC (Bld) 0.2 % Normal [facility] Comment on above: Performed By: #### 4 4016 #### [facility] [address] [place] [address] Eliazar Franks M.D. [id number] Eosinophils (Bld) [#/Vol] 0.04 10*3/uL Normal 0.00-0.50 [facility] Comment on above: Performed By: #### 4 4016 #### [facility] [address] [place] [address] Eliazar Franks M.D. [id number] Eosinophils/100 WBC (Bld) 0.3 % Normal [facility] Comment on above: Performed By: #### 4 4016 #### [facility] [address] [place], [place] [address] Eliazar Franks M.D. [id number] Erythrocyte distribution width (RBC) [Ratio] 12.6 % Normal 11.6-14.8 [facility] Comment on above: Performed By: #### 4 4016 #### [facility] [address] [place], [place] [address] Eliazar Franks M.D. [id number] Hematocrit (Bld) [Volume fraction] 37.5 % Normal 36.0-46.0 [facility] Comment on above: Performed By: #### 4 4016 #### [facility] [address] [place] [address] Eliazar Franks M.D. [id number] Hemoglobin (Bld) [Mass/Vol] 12.0 g/dL Normal 12.0-16.0 [facility] Comment on above: Performed By: #### 4 4016 #### [facility] [address] [place] [address] Eliazar Franks M.D. [id number] IG ABSOLUTE 0.14 K/mcL Normal 0.00-0.30 [facility] Comment on above: Performed By: #### 4 4016 #### [facility] [address] [place] [address] Eliazar Franks M.D. [id number] IG PERCENT 0.90 % Normal [facility] Comment on above: Result Comment: The IG parameter is the percentage of metamyelocytes, myelocytes and promyelocytes. An immature granulocyte count (IG) of 1% or more suggests the possibility of infection, an IG count of 3% is very likely related to an infection. Performed By: #### 4 [id number] #### [facility] [address] [place] [address] Eliazar Franks M.D. [id number] Lymphocytes (Bld) [#/Vol] 2.29 10*3/uL Normal 0.90-4.00 [facility] Comment on above: Performed By: #### 4 4016 #### [facility] [address] [place] [address] Eliazar Franks M.D. [id number] Lymphocytes/100 WBC (Bld) 14.8 % Normal [facility] Comment on above: Performed By: #### 4 4016 #### [facility] [address] [place] [address] Eliazar Franks M.D. [id number] MCH (RBC) [Entitic mass] 29.0 pg Normal 26.0-34.0 [facility] Comment on above: Performed By: #### 4 4016 #### [facility] [address] [place] [address] Eliazar Franks M.D. [id number] MCV (RBC) [Entitic vol] 90.6 fL Normal 80.0-100.0 [facility] Comment on above: Performed By: #### 4 4016 #### [facility] [address] [place] [address] Eliazar Franks M.D. [id number] MEAN CORPUSCULAR HEMOGLOBIN CONC 32.0 g/dL Normal 31.0-37.0 [facility] Comment on above: Performed By: #### 4 4016 #### [facility] [address] [place] [address] Eliazar Franks M.D. [id number] Monocytes (Bld) [#/Vol] 0.95 10*3/uL High 0.30-0.90 [facility] Comment on above: Performed By: #### 4 4016 #### [facility] [address] [place] [address] Eliazar Franks M.D. [id number] Monocytes/100 WBC (Bld) 6.1 % Normal [facility] Comment on above: Performed By: #### 4 4016 #### [facility] [address] [place], [place] [address] Eliazar Franks M.D. [id number] NEUTROPHILS ABSOLUTE COUNT 12.05 K/mcL High 1.70-7.00 [facility] Comment on above: Performed By: #### 4 4016 #### [facility] [address] [place], [place] [address] Eliazar Franks M.D. [id number] Neutrophils/100 WBC (Bld) 77.7 % Normal [facility] Comment on above: Performed By: #### 4 [id number] #### [facility] [address] [place], [place] [id number] Eliazar Franks M.D. [id number] Platelet mean volume (Bld) [Entitic vol] 9.1 fL Low 9.4-12.4 [facility] Comment on above: Performed By: #### 4 [id number] #### [facility] [place], [place] [address] Eliazar Franks M.D. [id number] Platelets (Bld) [#/Vol] 439 10*3/uL High 150-400 [facility] Comment on above: Performed By: #### 4 [id number] #### [facility] [address] [place] [address] Eliazar Franks M.D. [id number] RBC (Bld) [#/Vol] 4.14 10*6/uL Normal 4.00-5.20 [facility] Comment on above: Performed By: #### 4 [id number] #### [facility] [address] [place] [address] Eliazar Franks M.D. [id number] WBC (Bld) [#/Vol] 15.50 10*3/uL High 4.50-11.00 [facility] Comment on above: Performed By: #### 4 [id number] #### [facility] [address] [place] [address] Eliazar Franks M.D. [id number] CV IR CHEST TUBE INSERTION R [facility] 09-10-2024 CV IR CHEST TUBE INSERTION RIGHT IMPRESSION: Image guided right chest tube placement (24 Argentine Thal quick) PROCEDURE: INTRAVENOUS MODERATE SEDATION AND MONITORING. IMAGE GUIDED PLACEMENT OF RIGHT CHEST TUBE PHYSICIAN: Deanna Valdes D.O. [facility] [facility] [address], [place] [id number] (O) [phone] (F) [phone] ANESTHESIA: Intravenous moderate sedation with continuous physiological [...] over the wire to advance a 24 Argentine without quick catheter into the abscess cavity [...] MonSep 10, 2024 12:36:48 PM EDT Normal [facility] INR Coag (PPP) [Relative vilma e]on 09-10-2024 Interpretation and review of laboratory results Abnormal [facility] PT Coag (PPP) [Time] 16.6 s High [facility] During the induction phase of oral anticoagulation, the INR may not reflect the anticoagulation status of the patient. Therapeutic ranges for INR's are: Most clinical situations: INR 2.0-3.0 Mechanical Prosthetic Valve: INR 2.5-3.5 Critical: INR >5.0 [facility] CytologyOrdered By: Gregory Garcia on 09-10-2024 Case Report Medical Cytology Report Case: [id number] Authorizing Provider: Chandu Mathew MD Collected: 09/08/2024 12:53 PM Ordering Location: [facility] Medical Received: 09/09/2024 08:27 AM Observation Pathologist: Jack Garcia DO Specimen: Pleural, Right [facility] Work Phone: Clinical information i2fcnVTuXLEjq7ygFIL mbG VxFkLyZmTzVcMxYhw9UBWn fyO0Ctc2YLRaKCzzqX2hVL DjSVgnW0thxaWztWRzYOIi UGi4pZ1etThymR4hJiOsSa NeSBQYiBXzFBV7VDJwDV4o eWVtYVxwYXIgfQ== [email or web address] Work Phone: Interpretation Specimen A Negative for malignant cells Acute inflammation [facility] Work Phone: Pathology report gross observation Narrative a6jlfRObFLBfhGNzVHYcOP tcogLsBWItxAYhI9Bhpawt SEykIW2zCR2pjPpjhLEerP UxDNCwHkBdm3qpu671tIVy d7meKTAZrfsdwOz8mXaxY9 1qi6Z1WlwkZ85dbLCkRVP7 OUQzBRUtnOUrJMKxNEP4MZ YxqEMbZ3fiWNNhDJ1guaph IBhqBUmwYJQqcBB6WIXlaS NiO6NxPEFcKQrmCOTewgz9 WtYoGn3qsJKpmRgsEFcwWT JkXHBsYWluXGZzMjBccHJv lGQxnCjjJekufUC8VRhgPc srhY5yhCMKGJAAQzuMOccs wwPmWY9IRPVIDyQITQ64IQ ehIiQ6GCzyxCsnYydmdyUc tCGvTaKftL8Eg6jisCHqNE qnBmjisRFiihU8UFcLMMMQ YAoGYcPlVS0wYVgSK5PSOr W6IGfnJuS7NHjadNaiQhuk pyPwuOBoXtRfsX1kpFjbgD 7yDxEkRFChVNCpF3BdqzZx ELzfes17JHS6n7mlgYNtMW iqMakuaZVrivW5INnJMSDR ZTxUIzZjJM2iMLzDB5PCMT kBCvbpSKZ0UNsjsZU8n5hd fLToa5i9XUgtPOQ4tLOtMA Cnj6rhkGUcBDgbBdslpHQf xiI4ZQvWFVBGKMmNNbLfMU 0mYLeJQ1NTNmO7DrVrQDB9 MnwyfXtcZmxkcnNsdCBcJz RtiU6ytPjfwJ0kTyZoVFJp CQOja4vhycH2KLCkIzAbQK IwLCcpJf8Yi5C2EXFkxOvp BmoqLDOsSEStXW2GYV9xLW ZeJfMyJLFusF0wXFJkSJ86 O47zKDPbvXRoQBitcw42BR I6q7aftSBxVAtpOmjjdAUi ilG0ENlOABUKGBdLQgYyQK 6aATxJC7CHNWgMOsn7SVNo SVtllXE4n0yopQApn8c8VJ leBRK5sU88RDYmWUvec4vu HYEwHTxlw4PcWAmHKSKVVE 9AGL0qhYK5NIsMTWGKLRh3 CEEgYRnbqJA1u5gawOMpw7 r7RLnfNAU7aJqjmWYypovi xbIeDJViIIMnd5NrM0N8YP VmTVmty1vaXKXaKRpqs0Ex IAjIABFUVG7EPU1fqZY6UC sCDMGWY0rIwUR9SAS7wLT3 NO07UPGuIHBweWFoOYsoG8 27FIYxcENWBMMeVZinew88 AJP2SXvoMmzofHP9OBuxFn qllA3hmNPTDQZDVcuGMqah tvZgPH7IYKzWQkVIHI06DE 31HWXyLDFvbKXgSWajJ274 SFooNlafxSX4BWnrExsucU 5zdCBIWVBFUkxJTksgbmFt ZO1RHDySLI3OjUB7t7eobY Fes2q9FHakSMG4bKzniMIl tedqyi10KCY3LUTpWcZdRY Vnbr7wuqyzLQZZgAQko8Ls biBzbGlkZShzKSBEaWZmLV K4qObev7KigI3lNHfnDKUj c3YiC9Tjp0nyfEXpQClcHg dhcJPgfsT3LDrBDXLYLJmC OnGkBG3mBFvVLLXZLJrRNo x1jTlhDqhgtjBiwVUiWhOh qX6tx9qeeCWlLGstFkqebY UwhhI6WFvFZHOXQLyYLdYb CF9pEVfMOTZHPcW9Cn76JU YiPQRljJQhJUabR970WTIo RVpzIHXwu3EeG3NkLoIoNF ZzDAjfMDVcqFQbFZE3aC0w cGluIHNsaWRlKHMpIFBhcC BzdGFpbmVkLCBccHJvdGVj aHV8YWJrGShzo0ukSWObCN jwy7AeBPyXPHMYBY2GPS2w xXF8N5cRUXIYB3vMrXs1h2 snbNBxh9h7TWrhXCR3yCF7 SRDjZQvza1skWKGuLFhkk2 RqUEwTRNTCFX4WYT6yyXE3 F8jVWKGFMNo3nOdkNymwqc FqgDFjWoMklF5kvCjzoQ2p cHJvdGVjdFxmczIwICBjZW ryGNJbi4YnHOJba9hngKXc AJjyRghwgXUothG7RPnRSP CFWLfLXuDmCW2qBCaWT8FC HrC7CdG3TYN1TPx7hFrsMo zepcPxjKHnWkPfzB6kgOhm gT9sNrMxIHAflVLwoYGwVX DtFVNtxkg3hLhaSBMpuVvm IFNwZWNpbWVuIGNvbGxlY3 Eup26kkCpaSAzfDJEwCyPd IJHyXu0nKT1nHUB7EASgkk OTbC2iGUArhZgrPglsN7kg sNaeR1StSWieRETiVERdCW O8yfHwUSS0OsIyncPfTNXy zt3ulUktQmTaCQl1HCMoMV I3CsH3PoShAkVovOOlWXNd oTWkE8FynERpyE0aftIkPD 6kvhCgTKDwf16vXq6dlNXu aC32ZQTgcHYvgFBxrIdxJv tahKT9LYecTrbfmD6ffTRI SGUMZqxMRwcqymGfUJ3PMD DLRjUVOH35AMV2SSZ7ADm8 fXtcZmxkcnNsdCBcJzFjfX 2eZOl3SCBcbF0sXcLznY9k v7skpBXmGZnoJkwieGLxef Z3UNrCFODIKWjHRiCgDY2v YLiKO0CLZyR4UHA5VAU0CI h9aIxpDyclvtFkvAJpRjWd bM1nqVhrwQ9aVvWfNUTwUZ Z4WkP7OuLxShSzqVZhFSCa piWDBWhyXPLiH2h7p3mvE3 zojWSfjSMbCTRwl09nYKHn y2Bas4EvJEXvcSbeQMDjx4 XzSUanCKgcv7NrmKOaJA9b JxK8TMfeJTLikoMhZDL1ZQ 71LVXUDB8vEfzczECeUF6L WFN7MPWaSLPsxav8WLSJTE NNBKlWJB5IRCQAOLJNRS1O OEmNNiM0YRYeJzltINRaCz LdIUN3Ci4lYgQ2HTB4oXG2 KT1qAZZ8HEh6FBN8BoIpLq r0Zf01Wxi8JqFuBUU7fWd1 KSLXCGGSBAkHJ2GxJOLNNQ DDRQKgDU0NTKvLDCZHSZBN D47VSORIRURZK4XUB4tMUJ VcezFcfTZcezFcfTdcezFX IBbAQ5QBVV1FTMTDIKIACU 3KJyWdRQrJK1RKZ8xMIXZi JAZNLMHZAULxXkGAWA0xXD o2IFIaqZg1GDVjRom8She1 TEBxrBWrjpZxLSz8HYX4Wx UyYHHpnYZzb0NXN3f2d7Gp BLYyfwx4OEGcYMd0IXh6TZ XiaDTpzSUsUvrqITP9VHz2 MJu8DlJmQLP5nJfkTRS2VG T9VGLcaORMMUWRYTwZVMBA Aw4QHAXKEVEZTF7XUsIqG2 LSVN1HDj8QXXLSBWHRXR1M JBaWFmVqA8ZEYU4GKu2ZQH NMXBQTVR4FSjTwTGKTO0AZ CxPJP2amDUCIFTPCCSWrVt NDPL2jCSTCRG7HMMPYGELF Y64GSJLPYCVNR5URML4= [facility] Work Phone: [facility] Work Phone: PT/INRon 09-10-2024 INR Coag (PPP) [Relative time] 1.3 {INR} High 0.8 - 1.1 [facility] INR Coag (PPP) [Relative time] 1.3 {INR} High 0.8-1.1 [facility] Comment on above: Order Comment: Jarad giraldo the induction phase of oral anticoagulation, the INR may not reflect the anticoagulation status of the patient. Therapeutic ranges for INR's are:Most clinical situations: INR 2.0-3.0Mechanical Prosthetic Valve: INR 2.5-3.5Critical: INR >5.0 Performed By: #### 4 7222 #### [facility] [address] [place], [place] [address] Judah Dubose M.D. [id number] PT Coag (PPP) [Time] 16.6 s High 11.8-14.3 [facility] Comment on above: Order Comment: Jarad giraldo the induction phase of oral anticoagulation, the INR may not reflect the anticoagulation status of the patient. Therapeutic ranges for INR's are:Most clinical situations: INR 2.0-3.0Mechanical Prosthetic Valve: INR 2.5-3.5Critical: INR >5.0 Performed By: #### 4 7222 #### LAB [address] [place], [place] [address] Judah Dubose M.D. [id number] VR Chest Tube Righton 2024 Image guided right chest tube placement (24 Argentine Thal quick) PROCEDURE: INTRAVENOUS MODERATE SEDATION AND MONITORING. IMAGE GUIDED PLACEMENT OF RIGHT CHEST TUBE PHYSICIAN: Deanna Valdes D.O. [facility], [address] [place] [address] (O) [phone] (F) [phone] ANESTHESIA: Intravenous moderate sedation with continuous physiological [...] over the wire to advance a 24 Argentine without quick catheter into the abscess cavity and confirmed to be in appropriate position on post placement fluoroscopic images. Catheter was sutured in place with 0 Prolene pursestring suture, sterile dressings were placed and the catheter was connected to a pleur-[employer] system. Workstation ID: [id number] Jane Olson DO - 09/10/2024 IMPRESSION: Image guided right chest tube placement (24 Argentine Thal quick) PROCEDURE: INTRAVENOUS MODERATE SEDATION AND MONITORING. IMAGE GUIDED PLACEMENT OF RIGHT CHEST TUBE PHYSICIAN: Deanna Valdes D.O. [facility] [address] [place] [address] (O) [phone] (F) [phone] ANESTHESIA: Intravenous moderate sedation with continuous physiological [...] over the wire to advance a 24 Argentine without quick catheter into the abscess cavity and confirmed to be in appropriate position on post placement fluoroscopic images. Catheter was sutured in place with 0 Prolene pursestring suture, sterile dressings were placed and the catheter was connected to a pleur-evac system. Workstation ID: [id number] [facility] Radiology Study observation (narrative) [facility] XR CHEST PA/APon 09-10-2024 XR CHEST [...] on MonSep 10, 2024 5:12:39 PM EDT [facility] Comment on above: Order Comment: Injur [...] left base, unchanged. No new process identified. [employer]/ads Workstation ID: [id number] [employer] EXAMINATION: PORTABLE CHEST - 09/10/2024 COMPARISON: CT [...] angle remains sharp. No suspicious osseous lesion. [employer] Chang Blanchard MD - 09/10/2024 EXAMINATION: PORTABLE [...] new process identified. [employer]/ads Workstation ID: [id number] [facility] Radiology Study observation (narrative) [facility] XR Chest PA and Abdomen APOr dered By: Chang Blanchard on 09-10-2024 [facility] Work Phone: CONSULTon 09-09-2024 CONSULT Vascular & Interventional Radiology Provided By [facility] (Diagnostic Radiology, Interventional and Neurointerventional Radiology and Vascular Medicine) Interventional Radiology Department @ : [phone] 17/10 VIR physician contact: [phone]) Weekday VIR ARPITA contact @ [facility]: [phone] [facility]: [phone] [email or web address] [employer] The consult was reviewed. The patient's [...] TBD by the VIR control desk @ [phone], once pertinent labs and anticoagulant medications have [...] biopsies (e.g (more content not included)... Normal [facility] CT CHEST WITHOUT CONTRASTon 09-09-2024 CT CHEST [...] shoulder. IMPRESSION: 1. There is a decrease lgpys-iv-dwaurebn right-sided hydropneumothorax compared to 09/07/2024 but similar [...] on MonSep 09, 2024 1:32:33 PM EDT [facility] Comment on above: Order Comment: Injur y/Trauma or Illness?:Illness/OtherHow long have you had these symptoms (acute/chronic)?:AcuteReason for exam?:EmpyemaType of Exam?:InitialAdditional signs and symptoms?:n/a CT Chest WO contraston 09-09 1. There is a decrease xnzcr-mq-zqlzlilc right-sided hydropneumothorax compared to 09/07/2024 but similar to recent x-ray 09/09/2024. Previous small bore right pleural drain has backed out of the pleural space along the right chest wall. 2. Bilateral pulmonary opacities suggesting atelectasis. Superimposed pneumonia is not excluded. 3. Prior granulomatous disease. [facility]/lab Workstation ID: [id number] [employer] [facility] EXAMINATION: CT CHEST WITHOUT CONTRAST HISTORY: Empyema. [...] osteoarthritis. Loose bodies along the right shoulder. [employer] Gertrude Meza, - 09/09/2024 EXAMINATION: CT CHEST [...] shoulder. IMPRESSION: 1. There is a decrease ollhu-jk-qhrsiopr right-sided hydropneumothorax compared to 09/07/2024 but similar to recent x-ray 09/09/2024. Previous small bore right pleural drain has backed out of the pleural space along the right chest wall. 2. Bilateral pulmonary opacities suggesting atelectasis. Superimposed pneumonia is not excluded. 3. Prior granulomatous disease. [facility]/lab Workstation ID: [id number] [facility] Radiology Study observation (narrative) [facility] CT Chest WO contrastOrdered By: Gertrude Villareal on 09-09-2024 [facility] Work Phone: INR Coag (PPP) [Relative vilma e]on 09-09-2024 Interpretation and review of laboratory results Abnormal [facility] PT Coag (PPP) [Time] 17.7 s High [facility] During the induction phase of oral anticoagulation, the INR may not reflect the anticoagulation status of the patient. Therapeutic ranges for INR's are: Most clinical situations: INR 2.0-3.0 Mechanical Prosthetic Valve: INR 2.5-3.5 Critical: INR >5.0 [facility] PT/INRon 09-09-2024 INR Coag (PPP) [Relative time] 1.4 {INR} High 0.8 - 1.1 [facility] INR Coag (PPP) [Relative time] 1.4 {INR} High 0.8-1.1 [facility] Comment on above: Order Comment: Jarad giraldo the induction phase of oral anticoagulation, the INR may not reflect the anticoagulation status of the patient. Therapeutic ranges for INR's are:Most clinical situations: INR 2.0-3.0Mechanical Prosthetic Valve: INR 2.5-3.5Critical: INR >5.0 Performed By: #### 4 [id number] #### [facility] [address] [place] [address] Eliazar Franks M.D. [id number] PT Coag (PPP) [Time] 17.7 s High 11.8-14.3 [facility] Comment on above: Order Comment: Jarad giraldo the induction phase of oral anticoagulation, the INR may not reflect the anticoagulation status of the patient. Therapeutic ranges for INR's are:Most clinical situations: INR 2.0-3.0Mechanical Prosthetic Valve: INR 2.5-3.5Critical: INR >5.0 Performed By: #### 4 [id number] #### [facility] [address] [place] [address] Eliazar Franks M.D. [id number] XR CHEST PA/APon 09-09-2024 XR CHEST PA/AP [...] at the lateral aspect of the right wyn-tn-kodox chest. Catheter tip may be extrapleural in location. Small right pneumothorax at the lateral aspect of the right mid chest with 9 mm pleural separation. Small right basilar pleural effusion with underlying consolidation/compress clinton atelectasis. No left pneumothorax. Left apical calcified pulmonary granuloma. Normal heart size. IMPRESSION: Right sre-el-qbohw chest pigtail catheter in place. Possible underlying catheter retraction compared to 09/08/2024. Tip may be in the extrapleural space. Small right hydropneumothorax. Pleural separation at the lateral aspect of the right mid chest measures up to 9 mm. Results were called by Dr. Eric Rayo to Claude LEMA on 09/09/2024 at 0920. [employer] Workstation ID: [id number] Dictated by: ERIC RAYO on MonSep 09, 2024 9:20:53 AM EDT Transcribed by: JUAN JIM on MonSep 09, 2024 9:25:43 AM EDT Finalized by: ERIC RAYO on MonSep 09, 2024 9:28:37 PM EDT [facility] Comment on above: Order Comment: Injur y/Trauma or Illness?:Illness/OtherHow long have you had these symptoms (acute/chronic)?:AcuteReason for exam?:re-eval chest tubeHistory of cancer?:uSurgeries, chemotherapy, or radiation?:uType of Exam?:OngoingAdditional signs and symptoms?:, XR Chest PA and Abdomen APon 09-09-2024 Right xft-gd-shzom chest pigtail catheter in place. Possible underlying catheter retraction compared to 09/08/2024. Tip may be in the extrapleural space. Small right hydropneumothorax. Pleural separation at the lateral aspect of the right mid chest measures up to 9 mm. Results were called by Dr. Eric Rayo to Claude LEMA on 09/09/2024 at 0920. [employer] Workstation ID: [id number] [employer] [facility] EXAMINATION: XR CHEST PA/AP HISTORY: ORDERING SYSTEM PROVIDED HISTORY: re-eval chest tube, TECHNOLOGIST PROVIDED HISTORY: Illness/Other Reason for exam: re-eval chest tube Cancer History: u Surgery, RadiationHistory: u Encounter Type: Ongoing Additional signs and symptoms: , ORDERING SYSTEM PROVIDED DIAGNOSIS CODES: COMPARISON: 09/08/2024. FINDINGS: One-view chest x-ray. Pigtail catheter is seen at the lateral aspect of the right hvh-ez-pwlmv chest. Catheter tip may be extrapleural in [...] at the lateral aspect of the right emz-pi-xezqt chest. Catheter tip may be extrapleural in location. Small right pneumothorax at the lateral aspect of the right mid chest with 9 mm pleural separation. Small right basilar pleural effusion with underlying consolidation/compress clinton atelectasis. No left pneumothorax. Left apical calcified pulmonary granuloma. Normal heart size. IMPRESSION: Right frg-kt-gctrf chest pigtail catheter in place. Possible underlying catheter retraction compared to 09/08/2024. Tip may be in the extrapleural space. Small right hydropneumothorax. Pleural separation at the lateral aspect of the right mid chest measures up to 9 mm. Results were called by Dr. Eric Rayo to Claude LEMA on 09/09/2024 at 0920. /[facility] Workstation ID: [id number] [facility] Radiology Study observation (narrative) [facility] XR Chest PA and Abdomen APOr dered By: Eric Rayo on 09-09-2024 [facility] Work Phone: BASIC METABOLIC PANELon 08-25 Anion gap [Moles/Vol] 16 mmol/L Normal 10-20 [facility] Comment on above: Order Comment: [facility] has implemented the eGFR calculation approach that does not have a coefficient for race that conforms to the NKF-ASN Task Force Recommendations. Performed By: #### 4 4090 #### [facility] [address] [place], [place] [address] Judah Dubose M.D. [id number] Calcium [Mass/Vol] 8.4 mg/dL Normal 8.4-10.2 [facility] Comment on above: Order Comment: [facility] has implemented the eGFR calculation approach that does not have a coefficient for race that conforms to the NKF-ASN Task Force Recommendations. Performed By: #### 4 [id number] #### [facility] [address] [place] [address] Judah Dubose M.D. [id number] Chloride [Moles/Vol] 104 mmol/L Normal 98-108 [facility] Comment on above: Order Comment: [facility] has implemented the eGFR calculation approach that does not have a coefficient for race that conforms to the NKF-ASN Task Force Recommendations. Performed By: #### 4 4090 #### LAB [address] [place] [address] Judah Dubose M.D. [id number] Creatinine [Mass/Vol] 0.68 mg/dL Normal 0.40-1.10 [facility] Comment on above: Order Comment: [facility] has implemented the eGFR calculation approach that does not have a coefficient for race that conforms to the NKF-ASN Task Force Recommendations. Performed By: #### 4 4090 #### LAB [address] [place] [address] Judah Dubose M.D. [id number] EGFR 114 mL/min/1.73 m2 Normal >=60 [facility] Comment on above: Order Comment: [facility] has implemented the eGFR calculation approach that does not have a coefficient for race that conforms to the NKF-ASN Task Force Recommendations. Result Comment: Rhea mated GFR was calculated using the 2020 CKD-EPI creatinine equation. Performed By: #### 4 [id number] #### LAB [address] [place] [address] Judah Dubose M.D. [id number] Glucose [Mass/Vol] 149 mg/dL High 65-99 [facility] Comment on above: Order Comment: [facility] has implemented the eGFR calculation approach that does not have a coefficient for race that conforms to the NKF-ASN Task Force Recommendations. Performed By: #### 4 4090 #### LAB [address] [place], [place] [address] Judah Dubose M.D. [id number] HCO3 (Bld) [Moles/Vol] 21 mmol/L Normal 21-32 [facility] Comment on above: Order Comment: [facility] has implemented the eGFR calculation approach that does not have a coefficient for race that conforms to the NKF-ASN Task Force Recommendations. Performed By: #### 4 4090 #### LAB [address] [place] [address] Judah Dubose M.D. [id number] Potassium [Moles/Vol] 3.6 mmol/L Normal 3.5-5.1 [facility] Comment on above: Order Comment: [facility] has implemented the eGFR calculation approach that does not have a coefficient for race that conforms to the NKF-ASN Task Force Recommendations. Performed By: #### 4 4090 #### LAB [address] [place] [address] Judah Dubose M.D. [id number] Sodium [Moles/Vol] 137 mmol/L Normal 135-145 [facility] Comment on above: Order Comment: [facility] has implemented the eGFR calculation approach that does not have a coefficient for race that conforms to the NKF-ASN Task Force Recommendations. Performed By: #### 4 4090 #### [facility] [address] [place], [place] [address] Judah Dubose M.D. [id number] Urea nitrogen [Mass/Vol] 11 mg/dL Normal 8-25 [facility] Comment on above: Order Comment: [facility] has implemented the eGFR calculation approach that does not have a coefficient for race that conforms to the NKF-ASN Task Force Recommendations. Performed By: #### 4 4090 #### LAB [address] [place] [id number] Judah Dubose M.D. [id number] Urea nitrogen/Creatinine [Mass ratio] 16.2 mg/mg Normal 10.0-20.0 [facility] Comment on above: Order Comment: [facility] has implemented the eGFR calculation approach that does not have a coefficient for race that conforms to the NKF-ASN Task Force Recommendations. Performed By: #### 4 [id number] #### LAB [address] [place] [address] Judah Dubose M.D. [id number] BODY FLUID AEROBIC CULTUREon 09-08-2024 BODY FLUID AEROBIC CULTURE AEROBIC CULTURE No Growth after 5 days GRAM STAIN RESULT Many WBC Many RBC No Organisms Seen Normal [facility] Comment on above: Performed By: #### 4 [id number] #### [facility] [address] [place] [address] Eliazar Franks M.D. [id number] BODY FLUID CELL COUNT WITH D IFFERENTIALon 09-08-2024 APPEARANCE, FLUID Cloudy Normal [facility] Comment on above: Performed By: #### 4 7222 #### [facility] [address] [place] [address] Judah Dubose M.D. [id number] COLOR, FLUID Light Red Normal [facility] Comment on above: Performed By: #### 4 7222 #### LAB [address] [place] [address] Judah Dubose M.D. [id number] EOSINOPHILS, FLUID 1 % High 0-0 [facility] Comment on above: Performed By: #### 4 7222 #### [facility] [address] [place] [id number] Judah Dubose M.D. [id number] LYMPHOCYTES, FLUID 4 % High 0-0 [facility] Comment on above: Performed By: #### 4 7222 #### [facility] [address] [place] [address] Judah Dubose M.D. [id number] MONOCYTES, FLUID 4 % High 0-0 [facility] Comment on above: Performed By: #### 4 7222 #### LAB [address] [place], [place] [address] Judah Dubose M.D. [id number] NEUTROPHILS, FLUID 91 % High 0-25 [facility] Comment on above: Performed By: #### 4 7222 #### [facility] [address] [place], [place] [address] Judah Dubose M.D. [id number] RBC, FLUID 37876 /mcL High 0-0 [facility] Comment on above: Performed By: #### 4 7222 #### LAB [address] [place], [place] [address] Judah Dubose M.D. [id number] WBC/NUC CELLS, FLUID 63319 /mcL High 0-1000 [facility] Comment on above: Result Comment: Spec imen contains clots and/or clumps of cells--cell count results may be affected. Performed By: #### 4 7222 #### LAB [address] [place], [place] [address] Judah Dubose M.D. [id number] Basic metabolic 2000 panelon 09-08-2024 Anion gap [Moles/Vol] 16 mmol/L 10 - 20 mmol/L [facility] Calcium [Mass/Vol] 8.4 mg/dL 8.4 - 10. 2 mg/dL [facility] Chloride [Moles/Vol] 104 mmol/L 98 - 10 8 mmol/L [facility] Creatinine [Mass/Vol] 0.68 mg/dL 0.40 - 1.10 mg/dL [facility] GFR/1.73 sq M.predicted CKD-EPI (S/P/Bld) [Vol rate/Area] 114 - PINF [facility] Comment on above: Estimated GFR was ca lculated using the 2020 CKD-EPI creatinine equation. Glucose [Mass/Vol] 149 mg/dL High 65 - 99 mg/dL [facility] [facility] HCO3 [Moles/Vol] 21 mmol/L 21 - 32 mmol/L [facility] Interpretation and review of laboratory results Abnormal [facility] Potassium [Moles/Vol] 3.6 mmol/L 3.5 - 5.1 mmol/L [facility] Sodium [Moles/Vol] 137 mmol/L 135 - 145 mmol/L [facility] Urea nitrogen [Mass/Vol] 11 mg/dL 8 - 25 mg/dL [facility] Urea nitrogen/Creatinine [Mass ratio] 16.2 mg/mg 10.0 - 20.0 [facility] has implemented the eGFR calculation approach that does not have a coefficient for race that conforms to the NKF-ASN Task Force Recommendations. [facility] Body Fluid Cell Count with D ifferentialOrdered By: Shaylee Mark on 09-08-2024 Appearance (Body fld) Cloudy [facility] Color (Body fld) Light Red [facility] Eosinophils/100 WBC (Body fld) 1 % High 0 - 0 % [facility] Interpretation and review of laboratory results Abnormal [facility] Lymphocytes/100 WBC (Body fld) 4 % High 0 - 0 % [facility] Monocytes/100 WBC (Body fld) 4 % High 0 - 0 % [facility] Neutrophils/100 WBC (Body fld) 91 % High 0 - 25 % [facility] Nucleated cells Auto (Body fld) [#/Vol] [id number] [facility] Comment on above: Specimen contains cl ots and/or clumps of cells--cell count results may be affected. RBC Auto (Body fld) [#/Vol] [id number] [facility] CBC Auto Differentialon 08-25 Erythrocyte distribution width (RBC) [Entitic vol] 12.3 % 11.6 - 14.8 % [facility] Hematocrit (Bld) [Volume fraction] 37 % 36.0 - 46.0 % [facility] Hemoglobin (Bld) [Mass/Vol] 12.2 g/dL 12.0 - 16.0 g/dL [facility] MCH (RBC) [Entitic mass] 29.7 pg 26.0 - 34.0 pg [facility] MCHC (RBC) [Mass/Vol] 33 g/dL 31.0 - 37.0 g/dL [facility] MCV (RBC) [Entitic vol] 90 fL 80.0 - 100.0 fL [facility] Nucleated RBC (Bld) [#/Vol] 0 10*3/uL [facility] Nucleated RBC/100 WBC (Bld) [Ratio] 0 % [facility] Platelet mean volume (Bld) [Entitic vol] 9.2 fL Low 9.4 - 12.4 fL [facility] Platelets (Bld) [#/Vol] 393 10*3/uL [facility] RBC (Bld) [#/Vol] 4.11 10*6/uL [facility] WBC (Bld) [#/Vol] 19.96 10*3/uL [facility] CBC WITH AUTO DIFFERENTIALon 09-08-2024 AUTO NRBC 0.0 % Normal [facility] Comment on above: Performed By: #### 4 [id number] #### [facility] [address] [place], [place] [address] Eliazar Franks M.D. [id number] AUTO NRBC ABS COUNT 0.00 K/mcL Normal 0.00-0.00 [facility] Comment on above: Performed By: #### 4 4016 #### [facility] [address] [place] [address] Eliazar Franks M.D. [id number] Erythrocyte distribution width (RBC) [Ratio] 12.3 % Normal 11.6-14.8 [facility] Comment on above: Performed By: #### 4 4016 #### [facility] [address] [place], [place] [address] Eliazar Franks M.D. [id number] Hematocrit (Bld) [Volume fraction] 37.0 % Normal 36.0-46.0 [facility] Comment on above: Performed By: #### 4 4016 #### [facility] [address] [place], [place] [address] Eliazar Franks M.D. [id number] Hemoglobin (Bld) [Mass/Vol] 12.2 g/dL Normal 12.0-16.0 [facility] Comment on above: Performed By: #### 4 4016 #### [facility] [address] [place], [place] [address] Eliazar Franks M.D. [id number] MCH (RBC) [Entitic mass] 29.7 pg Normal 26.0-34.0 [facility] Comment on above: Performed By: #### 4 4016 #### [facility] [address] [place] [address] Eliazar Franks M.D. [id number] MCV (RBC) [Entitic vol] 90.0 fL Normal 80.0-100.0 [facility] Comment on above: Performed By: #### 4 [id number] #### [facility] [address] [place], [place] [address] Eliazar Franks M.D. [id number] MEAN CORPUSCULAR HEMOGLOBIN CONC 33.0 g/dL Normal 31.0-37.0 [facility] Comment on above: Performed By: #### 4 4016 #### [facility] [address] [place] [address] Eliazar Franks M.D. [id number] Platelet mean volume (Bld) [Entitic vol] 9.2 fL Low 9.4-12.4 [facility] Comment on above: Performed By: #### 4 [id number] #### [facility] [address] [place] [address] Eliazar Franks M.D. [id number] Platelets (Bld) [#/Vol] 393 10*3/uL Normal 150-400 [facility] Comment on above: Performed By: #### 4 4016 #### [facility] [address] [place] [address] Eliazar Franks M.D. [id number] RBC (Bld) [#/Vol] 4.11 10*6/uL Normal 4.00-5.20 [facility] Comment on above: Performed By: #### 4 4016 #### [facility] [address] [place] [address] Eliazar Franks M.D. [id number] WBC (Bld) [#/Vol] 19.96 10*3/uL High 4.50-11.00 [facility] Comment on above: Performed By: #### 4 4016 #### [facility] [address] [address] Eliazar Franks M.D. [id number] CBC and Diff Morphologyon Neutrophils.vacuolated LM Ql (Bld) Present [facility] Platelets LM Ql (Bld) Normal Normal [facility] Polychromasia LM Ql (Bld) Few [facility] RBC morphology finding Nom (Bld) See Comment [facility] Comment on above: RBC Indices confirme d with manual peripheral smear review. CONSULTon 09-08-2024 CONSULT PULMONOLOGY CONSULT 09/08/2024 Patient: Gricel Patel Date of : 1985 Site: [facility] Referring Provider: Refer to consult order in [...] a 2 week long respiratory infection around Eleva time. She never seeked any medical care [...] (ZOFRAN) injection (more content not included)... Normal [facility] GLUCOSE, BODY FLUIDon 2024 GLUCOSE FLUID < Normal [facility] Comment on above: Order Comment: No es tablished reference range. Performed By: #### 4 4090 #### [facility] [address] [place], [place] [address] Judah Dubose M.D. [id number] Glucose (Body fld) [Mass/Vol ]on 09-08-2024 No established reference range. [facility] Glucose, Body Fluidon 2024 Glucose (Body fld) [Mass/Vol] mg/dL mg/dL [facility] LDH BODY FLUIDon 09-08-2024 LACTATE DEHYDROGENASE FLUID > Normal [facility] Comment on above: Order Comment: No es tablished reference range. Performed By: #### 4 7222 #### [facility] [address] [place], [place] [address] Judah Dubose M.D. [id number] LDH Body Fluidon 09-08-2024 LDH Pyruvate to lactate reaction (Pleur fld) [Catalytic activity/Vol] U/L U/L [facility] LDH Pyruvate to lactate reac tion (Pleur fld) [Catalytic activity/Vol]on 09-08-2024 No established reference range. [facility] MAGNESIUM LEVELon 09-08-2024 Magnesium [Mass/Vol] 1.8 mg/dL Normal 1.6-2.4 [facility] Comment on above: Performed By: #### 4 6109 #### LAB [address] [address] Judah Dubose M.D. [id number] MANUAL DIFFERENTIALon 2024 BASOPHILS - ABS (DIFF) 0.00 K/mcL Normal 0.00-0.30 [facility] Comment on above: Performed By: #### 4 5456 #### LAB [address] [address] Judah Dubose M.D. [id number] BASOPHILS - REL (DIFF) 0.0 % Normal [facility] Comment on above: Performed By: #### 4 5456 #### LAB [address] [address] Judah Dubose M.D. [id number] EOSINOPHILS - ABS (DIFF) 0.00 K/mcL Normal 0.00-0.50 [facility] Comment on above: Performed By: #### 4 5456 #### LAB [address] [address] Judah Dubose M.D. [id number] EOSINOPHILS - REL (DIFF) 0.0 % Normal [facility] Comment on above: Performed By: #### 4 5456 #### LAB [address] [address] Judah Dubose M.D. [id number] LYMPHOCYTES - ABS (DIFF) 0.80 K/mcL Low 0.90-4.00 [facility] Comment on above: Performed By: #### 4 5456 #### [facility] [address] [address] Judah Dubose M.D. [id number] LYMPHOCYTES - REL (DIFF) 4.0 % Normal [facility] Comment on above: Performed By: #### 4 5456 #### [facility] [address] [address] Judah Dubose M.D. [id number] MONOCYTES - ABS (DIFF) 0.60 K/mcL Normal 0.30-0.90 [facility] Comment on above: Performed By: #### 4 5456 #### LAB [address] [address] Judah Dubose M.D. [id number] MONOCYTES - REL (DIFF) 3.0 % Normal [facility] Comment on above: Performed By: #### 4 5456 #### LAB [address] [address] Judah Dubose M.D. [id number] NEUTROPHILS - ABS (DIFF) 18.56 K/mcL High 1.70-7.00 [facility] Comment on above: Performed By: #### 4 5456 #### [facility] [address] [address] Judah Dubose M.D. [id number] NEUTROPHILS - REL (DIFF) 93.0 % [facility] Comment on above: Performed By: #### 4 5456 #### LAB [address] [address] Judah Dubose M.D. [id number] MORPHOLOGYon 09-08-2024 PLATELET ESTIMATE Normal Normal Normal [facility] Comment on above: Performed By: #### 4 4016 #### [facility] [address] [place] [address] Eliazar Franks M.D. [id number] POLY SCAN Few Normal [facility] Comment on above: Performed By: #### 4 4016 #### [facility] [address] [place], [place] [address] Eliazar Franks M.D. [id number] RBC MORPH SCAN See Comment Normal [facility] Comment on above: Result Comment: RBC Indices confirmed with manual peripheral smear review. Performed By: #### 4 4016 #### [facility] [address] [place], [place] [address] Eliazar Franks M.D. [id number] VACUOLATED GRANULOCYTES Present Normal [facility] Comment on above: Performed By: #### 4 4016 #### [facility] [address] [place], [place] [address] Eliazar Franks M.D. [id number] MRSA DNA AMPLIFIED PROBEon 0 09-08-2024 MRSA DNA AMPLIFIED PROBE Negative Normal Not Detected, MRSA NEGATIVE [facility] Comment on above: Performed By: #### 4 4016 #### [facility] [address] [place] [address] Eliazar Franks M.D. [id number] MRSA DNA Amplified ProbeOrde red By: Irina Balbuena on 09-08-2024 MRSA DNA ABBEY+probe Ql (Unsp spec) Negative Not Detected, MRSA NEGATIVE [facility] MRSA DNA ABBEY+probe Ql (Unsp spec)Ordered By: Irina Balbuena on 09-08-2024 Interpretation and review of laboratory results Normal [facility] Magnesiumon 09-08-2024 Magnesium [Mass/Vol] 1.8 mg/dL 1.6 - 2 .4 mg/dL [facility] Magnesium [Mass/Vol]on 09-08 Interpretation and review of laboratory results Normal [facility] Manual Differential panel (B ld)on 09-08-2024 Basophils (Bld) [#/Vol] 0 10*3/uL [facility] Basophils/100 WBC (Bld) 0 % [facility] Eosinophils (Bld) [#/Vol] 0 10*3/uL [facility] Eosinophils/100 WBC (Bld) 0 % [facility] Lymphocytes (Bld) [#/Vol] 0.8 10*3/uL Low [facility] Lymphocytes/100 WBC (Bld) 4 % [facility] Monocytes (Bld) [#/Vol] 0.6 10*3/uL [facility] Monocytes/100 WBC (Bld) 3 % [facility] Neutrophils (Bld) [#/Vol] 18.56 10*3/uL High [facility] Neutrophils/100 WBC (Bld) 93 % [facility] NONGYN CYTOLOGYon 09-08-2024 NONGYN CYTOLOGY Medical Cytology Report Case: [id number] Authorizing Provider: Chandu Mathew MD Collected: 09/08/2024 12:53 PM Ordering Location: [facility] Medical Received: 09/09/2024 08:27 AM Observation Pathologist: [...] run), 09/09/2024 LM Cytology preparations processed at: [facility] - [address] [place] [address] Normal [facility] Comment on above: Performed By: #### 4 [id number] #### [facility] [address] [place] [address] Eliazar Franks M.D. [id number] No Panel Informationon 09-08 Interpretation and review of laboratory results Abnormal [facility] PH, BODY FLUIDon 09-08-2024 PH FLUID 6.6 Normal [facility] Comment on above: Order Comment: No es tablished reference range. Performed By: #### 4 4090 #### [facility] [address] [place] [address] Judah Dubose M.D. [id number] PROTEIN, BODY FLUIDon 2024 PROTEIN FLUID 4.9 g/dL Normal [facility] Comment on above: Order Comment: No es tablished reference range. Performed By: #### 4 4090 #### [facility] [address] [place] [address] Judah Dubose M.D. [id number] Protein (Body fld) [Mass/Vol ]Ordered By: Haylee Barron on 09-08-2024 No established reference range. [facility] Protein, Body FluidOrdered B y: Haylee Barron on 09-08-2024 Protein (Body fld) [Mass/Vol] 4.9 g/dL [facility] XR CHEST PA/APon 09-08-2024 XR CHEST [...] a right pleural drain. 2. No pneumothorax. [employer] Workstation ID: [id number] Dictated by: TOMÁS FREIRE on MonSep 08, 2024 2:55:31 PM EDT Transcribed by: MONE PAGAN on MonSep 08, 2024 3:07:47 PM EDT Finalized by: TOMÁS FREIRE on MonSep 08, 2024 3:27:56 PM EDT Normal [facility] Comment on above: Order Comment: Injur y/Trauma or Illness?:Illness/OtherHow long have you had these symptoms (acute/chronic)?:AcuteReason for exam?:s/p chest tube placementHistory of cancer?:uSurgeries, chemotherapy, or radiation?:uType of Exam?:InitialAdditional signs and symptoms?:u XR Chest PA and Abdomen APon 09-08-2024 1. Status post placement of a right pleural drain. 2. No pneumothorax. [employer] Workstation ID: [id number] GE RIS EXAMINATION: XR [...] at apex or base of right lung. [facility] Tomás Freire MD - 09/08/2024 EXAMINATION: XR [...] a right pleural drain. 2. No pneumothorax. [employer] Workstation ID: [id number] [facility] Radiology Study observation (narrative) [facility] XR Chest PA and Abdomen APOr dered By: Tomás Freire on 09-08-2024 [facility] Work Phone: pH (Body fld)Ordered By: Cristofer Peterson on 09-08-2024 No established reference range. [facility] pH, Body FluidOrdered By: Ab Golden on 09-08-2024 pH (Body fld) 6.6 [pH] [facility] BLOOD CULTURE AEROBIC/ANAERO BICon 09-07-2024 BLOOD CULTURE AEROBIC/ANAEROBIC BLOOD CULTURE No Growth after 5 days [facility] Comment on above: Performed By: #### 4 4014 #### [facility] [address] [place], [place] [address] Judah Dubose M.D. [id number] CT CHEST ABDOMEN PELVIS WITH IV CONTRAST [...] Sat Sep 07, 2024 10:20:06 AM EDT [facility] Comment on above: Order Comment: [...] - PAST HISTORY - Past Medical History: @[facility]@ Past Surgical History: has a past surgical [...] DECISION MAKING (more content not included)... Normal [facility] POC BASIC METABOLIC PANEL - [facility] 09-07-2024 Chloride [Moles/Vol] 103 mmol/L Normal 98-108 [facility] Comment on above: Order Comment: [facility] has implemented the eGFR calculation approach that does not have a coefficient for race that conforms to the NKF-ASN Task Force Recommendations. CO2 [Moles/Vol] 25 mmol/L Normal 21-32 [facility] Comment on above: Order Comment: [facility] has implemented the eGFR calculation approach that does not have a coefficient for race that conforms to the NKF-ASN Task Force Recommendations. Creatinine [Mass/Vol] 0.71 mg/dL Normal 0.40-1.10 [facility] Comment on above: Order Comment: [facility] has implemented the eGFR calculation approach that does not have a coefficient for race that conforms to the NKF-ASN Task Force Recommendations. Glucose [Mass/Vol] 103 mg/dL High 65-99 [facility] Comment on above: Order Comment: [facility] has implemented the eGFR calculation approach that does not have a coefficient for race that conforms to the NKF-ASN Task Force Recommendations. POC GFR 111 mL/min/1.73 m2 Normal >=60 [facility] Comment on above: Order Comment: [facility] has implemented the eGFR calculation approach that does not have a coefficient for race that conforms to the NKF-ASN Task Force Recommendations. Result Comment: Rhea mated GFR was calculated using the 2020 CKD-EPI creatinine equation. POC IONIZED CALCIUM 4.5 mg/dL Normal 4.5-5.3 [facility] Comment on above: Order Comment: [facility] has implemented the eGFR calculation approach that does not have a coefficient for race that conforms to the NKF-ASN Task Force Recommendations. Potassium [Moles/Vol] 3.5 mmol/L Normal 3.5-5.1 [facility] Comment on above: Order Comment: [facility] has implemented the eGFR calculation approach that does not have a coefficient for race that conforms to the NKF-ASN Task Force Recommendations. Sodium [Moles/Vol] 139 mmol/L Normal 135-145 [facility] Comment on above: Order Comment: [facility] has implemented the eGFR calculation approach that does not have a coefficient for race that conforms to the NKF-ASN Task Force Recommendations. Urea nitrogen [Mass/Vol] 13 mg/dL Normal 8-25 [facility] Comment on above: Order Comment: [facility] has implemented the eGFR calculation approach that does not have a coefficient for race that conforms to the NKF-ASN Task Force Recommendations. POC CBC AND DIFFERENTIALon 0 09-07-2024 BASOPHILS ABSOLUTE COUNT 0.03 K/mcL Normal 0.00-0.30 [facility] Basophils/100 WBC (Bld) 0.2 % Normal [facility] Eosinophils (Bld) [#/Vol] 0.05 10*3/uL Normal 0.00-0.50 [facility] Eosinophils/100 WBC (Bld) 0.3 % Normal [facility] Erythrocyte distribution width (RBC) [Ratio] 11.9 % Normal 11.6-14.8 [facility] Hematocrit (Bld) [Volume fraction] 44.6 % Normal 36.0-46.0 [facility] Hemoglobin (Bld) [Mass/Vol] 14.9 g/dL Normal 12.0-16.0 [facility] IG ABSOLUTE 0.03 K/mcL Normal 0.00-0.30 [facility] IG PERCENT 0.20 % Normal [facility] Comment on above: Result Comment: The IG parameter is the percentage of metamyelocytes, myelocytes and promyelocytes. An immature granulocyte count (IG) of 1% or more suggests the possibility of infection, an IG count of 3% is very likely related to an infection. Lymphocytes (Bld) [#/Vol] 1.28 10*3/uL Normal 0.90-4.00 [facility] Lymphocytes/100 WBC (Bld) 8.5 % Normal [facility] MCH (RBC) [Entitic mass] 30.2 pg Normal 26.0-34.0 [facility] MCV (RBC) [Entitic vol] 90.3 fL Normal 80.0-100.0 [facility] MEAN CORPUSCULAR HEMOGLOBIN CONC 33.4 g/dL Normal 31.0-37.0 [facility] Monocytes (Bld) [#/Vol] 0.45 10*3/uL Normal 0.30-0.90 [facility] Monocytes/100 WBC (Bld) 3.0 % Normal [facility] NEUTROPHILS ABSOLUTE COUNT 13.22 K/mcL High 1.70-7.00 [facility] Neutrophils/100 WBC (Bld) 87.8 % Normal [facility] Platelet mean volume (Bld) [Entitic vol] 9.6 fL Normal 9.4-12.4 [facility] Platelets (Bld) [#/Vol] 422 10*3/uL High 150-400 [facility] RBC (Bld) [#/Vol] 4.94 10*6/uL Normal 4.00-5.20 [facility] WBC (Bld) [#/Vol] 15.06 10*3/uL High 4.50-11.00 [facility] POC LIVER PANEL PLUS Susu 09-07-2024 Albumin [Mass/Vol] 3.0 g/dL Low 3.2-5.2 [facility] ALP [Catalytic activity/Vol] 91 U/L Normal 40-140 [facility] ALT [Catalytic activity/Vol] 29 U/L Normal 0-40 [facility] Amylase [Catalytic activity/Vol] 17 U/L Low 25-115 [facility] Amylase [Catalytic activity/Vol] 22 U/L Normal 7-33 [facility] AST [Catalytic activity/Vol] 22 U/L Normal 0-45 [facility] Bilirubin [Mass/Vol] 0.7 mg/dL Normal 0.0-1.3 [facility] Protein [Mass/Vol] 8.7 g/dL High 6.0-8.0 [facility] POC , URINE - [facility] n 09-07-2024 Beta HCG ( test) Ql (U) Negative Normal Negative [facility] Comment on above: Order Comment: Negat clinton: Dilute urine specimens, as indicated by a low specific gravity (<1.010) may not contain representitive levels of hCG. If is still suspected, a serum test or repeat urine test using a first morning urine specimen should be considered. POC URINALYSIS DIPSTICK,AUTO [facility] POC BILIRUBIN, URINE Moderate Abnormal Negative [facility] POC BLOOD, URINE Negative Normal Negative [facility] POC GLUCOSE, URINE Negative Normal Negative [facility] POC KETONES, URINE >=160 Abnormal Negative [facility] POC LEUKOCYTE ESTERASE, URINE Negative Normal Negative [facility] POC NITRITE, URINE Negative Normal Negative [facility] POC PH, URINE 6.0 Normal 5.0-7.0 [facility] POC PROTEIN, URINE >=300 Abnormal Negative [facility] POC SPECIFIC GRAVITY >= High 1.005-1.025 [facility] POC UROBILINOGEN 2.0 mg/dL Abnormal < 2.0 [facility] CNPNon 09-05-2024 CNPN Telephone ([facility]) GRICEL PATEL ([id number]) 1985 F Date Time Provider Department 09/05/24 PRUDENCE ORNELAS [facility] During your visit today, we recorded the following information about you: Prudence Ornelas APRN.CNP 09/05/2024 8:03 AM Signed Patient has not viewed [employer] message sent related to results. Please reach [...] Status:Closed by MAC LANG on 09/05/24 Normal [facility] CNOVon 09-02-2024 CNOV Office Visit ([facility] ) GRICEL PATEL ([id number]) 1985 F Date Time Provider Department 09/02/24 3:00 PM AUREA DOSS [facility] During your visit today, we recorded the following information about you: Temperature Pulse Respiration Blood pressure 99.8 degrees 103/minute 20/minute 104/72 Weight 93.9 kg Aurea Doss SUPERVISOR CONTACT LENS.MEDICAL CARE MANAGER 09/02/2024 3:30 PM Signed Subjective The history is provided by the patient. No director speech language was used. HPI Gricel Patel is a [...] or emesis. - Works third shift at [employer]; reports high consumption of Sprite and low [...] have confirmed and edited as necessary, the [facility] Review of Systems Constitutional: Negative for chills [...] dizziness Date Reviewed: 09/02/2024 Reviewed by: Juli Torers MA - Fully Assessed Reason for Visit: Back Pain [12] Cmt: Mid back pain x 4 days Primary Visit Diagnosis:Acute right-sided back pain, unspecified back location [M54.9] Order(s):UA DIP, URINE (POC) [0428505] Order #: [id number]. #:[id number] naproxen (NAPROSYN) 500 mg tabletTake 1 tablet by mouth two times a day as needed (FOR PAIN - TAKE WITH FOOD.).Disp: 28 tabletRfl: 0 cyclobenzaprine (FLEXERIL) 10 mg tabletTake 1 tablet by mouth three times a day as needed.Disp: 15 tabletRfl: 0 COMPREHENSIVE METABOLIC PANEL [SQCMP] Order #: [id number] FUTURE Prescriptions as of 09/02/2024 - naproxen [...] from you (more content not included)... Normal [facility] Comprehensive metabolic 2000 panelon 09-02-2024 Albumin [Mass/Vol] 3.9 g/dL Normal 3.9-4.9 [facility] Comment on above: Order Comment: Speci men Type: BLOOD SPECIMENOrdering Facility: [facility] Address: [address] [place] [address] Performed By: #### 2 4323-8 ####[facility] LAB[facility] [id number] [place] [address] [place] ALP [Catalytic activity/Vol] 88 U/L Normal 34-123 [facility] [facility] Comment on above: Order Comment: Speci men Type: BLOOD SPECIMENOrdering Facility: [facility] Address: [address] [place] [address] Performed By: #### 2 4323-8 ####[facility] LABCLIA [id number] [place] [address] [place] ALT [Catalytic activity/Vol] 16 U/L Normal 7-38 [facility] Comment on above: Order Comment: Speci men Type: BLOOD SPECIMENOrdering Facility: [facility] Address: [address] [place] [address] Performed By: #### 2 4323-8 ####[facility] LABCLIA [id number] [facility] [address] [place] [address] [place] Anion gap [Moles/Vol] 14 mmol/L Normal 8-15 [facility] Comment on above: Order Comment: Speci men Type: BLOOD SPECIMENOrdering Facility: [facility] Address: [address] [place] [address] Performed By: #### 2 4323-8 ####[facility] LABCLIA [id number] [address] [address] [place] AST [Catalytic activity/Vol] 16 U/L Normal 13-35 [facility] Comment on above: Order Comment: Speci men Type: BLOOD SPECIMENOrdering Facility: [facility] Address: [address] [place] [address] Performed By: #### 2 4323-8 ####[facility] LABCLIA [id number] [place] [id number] [place] Bilirubin [Mass/Vol] 0.5 mg/dL Normal 0.2-1.3 [facility] Comment on above: Order Comment: Speci men Type: BLOOD SPECIMENOrdering Facility: [facility] Address: [address] [place] [address] Performed By: #### 2 4323-8 ####[facility] LABCLIA [id number] [place] [id number] [place] Calcium [Mass/Vol] 9.4 mg/dL Normal 8.5-10.2 [facility] Comment on above: Order Comment: Speci men Type: BLOOD SPECIMENOrdering Facility: [facility] Address: [address] [place] [address] Performed By: #### 2 4323-8 ####[facility] LABCLIA [id number] [address] [address] [place] Chloride [Moles/Vol] 94 mmol/L Low 98-107 [facility] Comment on above: Order Comment: Speci men Type: BLOOD SPECIMENOrdering Facility: [facility] Address: [address] [place] [address] Performed By: #### 2 4323-8 ####[facility] LABCLIA [id number] [place] [address] [place] CO2 [Moles/Vol] 25 mmol/L Normal 22-30 [facility] Comment on above: Order Comment: Speci men Type: BLOOD SPECIMENOrdering Facility: [facility] Address: [address] [place] [address] Performed By: #### 2 4323-8 ####[facility] LABIA [id number] [address] [place] Creatinine [Mass/Vol] 0.87 mg/dL Normal 0.58-0.96 [facility] Comment on above: Order Comment: Speci men Type: BLOOD SPECIMENOrdering Facility: [facility] Address: [address] [place] [address] Performed By: #### 2 4323-8 ####[facility] LABIA [id number] [address] Creatinine and Glomerular filtration rate.predicted panel (S/P/Bld) 87 mL/min/1.73m??? Normal >=60 [facility] Comment on above: Order Comment: Speci men Type: BLOOD SPECIMENOrdering Facility: [facility] Address: [address] [place] [address] Result Comment: Rhea mated Glomerular Filtration Rate [...] actual GFR. Performed By: #### 2 4323-8 ####[facility] LABCLIA [id number] [address] [address] [place] Glucose [Mass/Vol] 113 mg/dL High 74-99 [facility] Comment on above: Order Comment: Speci men Type: BLOOD SPECIMENOrdering Facility: [facility] Address: [address] [place] [address] Result Comment: The [place] Diabetes Association (ADA) provides guidance for cutoff [...] Standards of Medical Care in Diabetes 2016, [place] [employer]. Diabetes Care. 2016.39(Suppl 1). Performed By: #### 2 4323-8 ####[facility] LABCLIA [id number] [place] [id number] [place] Potassium [Moles/Vol] 4.1 mmol/L Normal 3.7-5.1 [facility] Comment on above: Order Comment: Speci men Type: BLOOD SPECIMENOrdering Facility: [facility] Address: [address] [place], [place] [id number] Performed By: #### 2 4323-8 ####[facility] LABCLIA [id number] [place] [id number] [place] Protein [Mass/Vol] 8.1 g/dL High 6.3-8.0 [facility] Comment on above: Order Comment: Speci men Type: BLOOD SPECIMENOrdering Facility: [facility] Address: [address] [place], [place] [address] Performed By: #### 2 4323-8 ####[facility] LABCLIA [id number] [place] [id number] [place] Sodium [Moles/Vol] 133 mmol/L Low 136-144 [facility] Comment on above: Order Comment: Speci men Type: BLOOD SPECIMENOrdering Facility: [facility] Address: [address] [place] [address] Performed By: #### 2 4323-8 ####[facility] LABCLIA [id number] [place] [address] [place] Urea nitrogen [Mass/Vol] 13 mg/dL Normal 7-21 [facility] Comment on above: Order Comment: Speci men Type: BLOOD SPECIMENOrdering Facility: [facility] Address: [address] [place], [place] [address] [address] Performed By: #### 2 4323-8 ####[facility] LABCLIA [id number] [place] [address] [place] UA DIP, URINE (POC)on 2024 BILIRUBIN UA (POCT) Small Abnormal Negative [facility] CLARITY UA (POCT) Cloudy [facility] COLOR UA (POCT) Dark yellow [facility] GLUCOSE UA (POCT) Negative Negative mg/dL [facility] Hemoglobin Ql (U) Trace-lysed Abnormal Negative [facility] Interpretation and review of laboratory results Abnormal [facility] KETONE UA (POCT) 40 mg/dL Abnormal Negative [facility] LEUKOCYTES UA (POCT) Negative Negative [facility] NITRITE UA (POCT) Negative Negative [facility] PH UA (POCT) 5.5 4.5 - 8.0 [facility] Protein Ql (U) 100 mg/dL Abnormal Negative [facility] SPECIFIC GRAVITY UA (POCT) >=1.030 1.005 - 1.030 [facility] UROBILINOGEN UA (POCT) 0.2 Normal E.U./d L [facility] Location:[address], [place], [address] [facility] POINT OF CARE [facility] Vital Signs Date Time Vital Sign Value Performing Clinician Faci lity 11-06-2024 13:34-0400 Body temperature 99.39 [degF] Melvi Swanson MD Work Phone: [facility] 11-06-2024 13:34-0400 Body weight 91.9 kg Melvi Swanson MD Work Phone: [facility] 11-06-2024 13:34-0400 Diastolic blood pressure 72 mm[Hg] Melvi Swanson MD Work Phone: [facility] 11-06-2024 13:34-0400 Heart rate 89 /min Melvi Swanson MD Work Phone: [facility] 11-06-2024 13:34-0400 Respiratory rate 16 /min Melvi Swanson MD Work Phone: [facility] 11-06-2024 13:34-0400 SaO2% (BldA) [Mass fraction] 98 % Melvi Swanson MD Work Phone: [facility] 11-06-2024 13:34-0400 Systolic blood pressure 100 mm[Hg] Melvi Swanson MD Work Phone: [facility] 10-16-2024 14:07-0400 Body temperature 98.49 [degF] Melvi Swanson MD Work Phone: [facility] 10-16-2024 14:07-0400 Body weight 91.26 kg Melvi Swanson MD Work Phone: [facility] 10-16-2024 14:07-0400 Diastolic blood pressure 80 mm[Hg] Melvi Swanson MD Work Phone: [facility] 10-16-2024 14:07-0400 Heart rate 106 /min Melvi Swanson MD Work Phone: [facility] 10-16-2024 14:07-0400 SaO2% (BldA) [Mass fraction] 96 % Melvi Swanson MD Work Phone: [facility] 10-16-2024 14:07-0400 Systolic blood pressure 109 mm[Hg] Melvi Swanson MD Work Phone: [facility] 10-09-2024 15:02-0400 Body weight 94.17 kg Melvi Swanson MD Work Phone: [facility] 10-09-2024 15:02-0400 Diastolic blood pressure 76 mm[Hg] Melvi Swanson MD Work Phone: [facility] 10-09-2024 15:02-0400 Heart rate 86 /min Melvi Swanson MD Work Phone: [facility] 10-09-2024 15:02-0400 Respiratory rate 12 /min Melvi Swanson MD Work Phone: [facility] 10-09-2024 15:02-0400 SaO2% (BldA) [Mass fraction] 98 % Melvi Swanson MD Work Phone: [facility] 10-09-2024 15:02-0400 Systolic blood pressure 107 mm[Hg] Melvi Swanson MD Work Phone: [facility] 10-02-2024 09:09-0400 Body temperature 98.49 [degF] Melvi Swanson MD Work Phone: [facility] 10-02-2024 09:09-0400 Body weight 96.07 kg Melvi Swanson MD Work Phone: [facility] 10-02-2024 09:09-0400 Diastolic blood pressure 76 mm[Hg] Melvi Swanson MD Work Phone: [facility] 10-02-2024 09:09-0400 Heart rate 76 /min Melvi Swanson MD Work Phone: [facility] 10-02-2024 09:09-0400 Respiratory rate 16 /min Melvi Swanson MD Work Phone: [facility] 10-02-2024 09:09-0400 SaO2% (BldA) [Mass fraction] 97 % Melvi Swanson MD Work Phone: [facility] 10-02-2024 09:09-0400 Systolic blood pressure 112 mm[Hg] Melvi Swanson MD Work Phone: [facility] 09-16-2024 15:40-0400 Respiratory rate 16 /min Carlos Vicente MD Work Phone: [facility] 09-16-2024 12:46-0400 Body temperature 98.2 [degF] Carlos Vicente MD Work Phone: [facility] 09-16-2024 12:46-0400 Diastolic blood pressure 85 mm[Hg] Carlos Vicente MD Work Phone: [facility] 09-16-2024 12:46-0400 Heart rate 79 /min Carlos Vicente MD Work Phone: [facility] 09-16-2024 12:46-0400 SaO2% (BldA) [Mass fraction] 94 % Carlos Vicente MD Work Phone: [facility] 09-16-2024 12:46-0400 Systolic blood pressure 118 mm[Hg] Carlos Vicente MD Work Phone: [facility] 09-07-2024 15:17-0400 Body height 165.1 cm Carlos Vicente MD Work Phone: [facility] 09-07-2024 15:17-0400 Body mass index (BMI) [Ratio] 34.12 kg/m2 Carlos Vicente MD Work Phone: [facility] 09-07-2024 15:17-0400 Body weight 93 kg Carlos Vicente MD Work Phone: [facility] 09-02-2024 15:00-0400 Body temperature 99.81 [degF] Aurea Romario SUPERVISOR CONTACT LENS.MEDICAL CARE MANAGER Work Phone: [facility] 09-02-2024 15:00-0400 Body weight 93.9 kg Auera Romario SUPERVISOR CONTACT LENS.MEDICAL CARE MANAGER Work Phone: [facility] 09-02-2024 15:00-0400 Diastolic blood pressure 72 mm[Hg] Aurea Romario SUPERVISOR CONTACT LENS.MEDICAL CARE MANAGER Work Phone: [facility] 09-02-2024 15:00-0400 Heart rate 103 /min Aurea Romario SUPERVISOR CONTACT LENS.MEDICAL CARE MANAGER Work Phone: [facility] 09-02-2024 15:00-0400 Respiratory rate 20 /min Aurea Romario SUPERVISOR CONTACT LENS.MEDICAL CARE MANAGER Work Phone: [facility] 09-02-2024 15:00-0400 SaO2% (BldA) [Mass fraction] 96 % Aurea Doss SUPERVISOR CONTACT LENS.MEDICAL CARE MANAGER Work Phone: [facility] 09-02-2024 15:00-0400 Systolic blood pressure 104 mm[Hg] Aurea Doss SUPERVISOR CONTACT LENS.MEDICAL CARE MANAGER Work Phone: [facility] Encounters Encounter Date Encounter Type Care Provider Facility Start: 11-12-2024 End: 11-12-2024 Nursing evaluation of patient and report Mi Nurse Work Phone: [facility] Comment on above: Encounter for immuni zation (Primary Dx) Start: 11-12-2024 End: 11-12-2024 ambulatory MELVI SWANSON Facility:[facility] Start: 11-07-2024 End: 11-07-2024 ambulatory Melvi Swanson MD Work Phone: [facility] Comment on above: Lab results Start: 11-07-2024 End: 11-07-2024 E-mail encounter from caregiver Melvi Swanson MD Work Phone: [facility] Start: 11-06-2024 End: 11-06-2024 Subsequent hospital visit by physician [facility] Work Phone: Radiology Comment on above: Pleuritic chest pain [R07.81] Start: 11-06-2024 End: 11-06-2024 ambulatory MELVI SWANSON Facility:[facility] Start: 11-06-2024 End: 11-06-2024 Office outpatient visit 40 minutes Melvi Swanson MD Work Phone: [facility] Comment on above: Pleuritic chest pain (Primary Dx); Encounter for screening examination for other mental health and behavioral disorders; Screening for depression; Encounter for health-related screening; Encounter for immunization; Tobacco abuse; Annual physical exam; Other fatigue Start: 11-06-2024 End: 11-06-2024 ambulatory MELVI SWANSON Facility:[facility] Start: 11-06-2024 End: 11-06-2024 Patient encounter procedure Melvi Swanson MD Work Phone: [facility] Start: 10-29-2024 End: 11-29-2024 ambulatory Melvi Swanson MD Work Phone: Internal Medicine Start: 10-23-2024 ambulatory MELVI SWANSON Facility:[facility] Start: 10-23-2024 End: 10-23-2024 Subsequent hospital visit by physician Mounika [facility] ([facility] Work Phone: Cat Scan Comment on above: Headache, unspecifie d headache type [R51.9] Start: 10-17-2024 End: 10-18-2024 Follow-up encounter Melvi Swanson MD Work Phone: [facility] Start: 10-16-2024 End: 10-16-2024 ambulatory MELVI SWNASON Facility:[facility] Start: 10-16-2024 End: 10-16-2024 Office outpatient visit 25 minutes Melvi Swanson MD Work Phone: [facility] Comment on above: Empyema (HCC) (Prima ry Dx); Tobacco abuse; Headache, unspecified headache type; Fatigue, unspecified type Start: 10-16-2024 End: 10-18-2024 Telephone encounter Melvi Swanson MD Work Phone: [facility] Start: 10-16-2024 End: 10-16-2024 ambulatory MELVI SWANSON Facility:[facility] Start: 10-10-2024 End: 10-10-2024 Subsequent hospital visit by physician Mounika [facility] ([facility] Work Phone: Cat Scan Comment on above: Chest pain on breath ing [R07.1] Start: 10-10-2024 End: 10-10-2024 ambulatory Melvi Swanson MD Work Phone: [facility] Comment on above: Scan Empyema (HCC) (Prima ry Dx) Start: 10-10-2024 End: 10-10-2024 E-mail encounter from caregiver Melvi Swanson MD Work Phone: [facility] Start: 10-10-2024 End: 10-10-2024 Patient encounter procedure Ugo Hernandez DO Work Phone: Pulmonology Start: 10-10-2024 End: 10-10-2024 Telephone encounter Mayela TENORIO Admitting Comment on above: Appointment; Dariela stuart Start: 10-09-2024 End: 10-09-2024 ambulatory MELVI SWANSON Facility:[facility] Start: 10-09-2024 End: 10-09-2024 Subsequent hospital visit by physician Jessica [facility] Work Phone: Radiology Comment on above: Empyema (HCC) [J86.9 ] Start: 10-09-2024 End: 10-09-2024 Office outpatient visit 40 minutes Melvi Swanson MD Work Phone: [facility] Comment on above: Empyema (HCC) (Prima ry Dx) Start: 10-09-2024 End: 10-09-2024 ambulatory MELVI SWANSON Facility:[facility] Start: 10-09-2024 End: 10-09-2024 Patient encounter procedure Kun Brown MD Work Phone: Infectious Disease Start: 10-07-2024 End: 10-10-2024 Orders Only Melvi Swanson MD Work Phone: [facility] Comment on above: Pleural effusion [J9 0] Start: 10-03-2024 End: 10-03-2024 E-mail encounter from caregiver Mevli Swanson MD Work Phone: [facility] Start: 10-03-2024 End: 10-03-2024 Telephone encounter Melvi Swanson MD Work Phone: [facility] [place] Start: 10-03-2024 End: 10-03-2024 Subsequent hospital visit by physician Jessica [facility] Schaeffer Work Phone: Radiology Comment on above: Pleural effusion [J9 0] Start: 10-03-2024 End: 10-03-2024 ambulatory Melvi Swanson MD Work Phone: [facility] Comment on above: Test [...] Start: 10-02-2024 End: 10-02-2024 ambulatory MELVI SWANSON Facility:[facility] Start: 09-12-2024 End: 11-12-2024 Follow-up encounter Betzy Borges RN [facility] Department Comment on above: Blood Culture #1, Bl ood Culture #2 Start: 09-07-2024 End: 09-16-2024 Evaluation and management of inpatient Generic [facility] Work Phone: [facility] Start: 09-07-2024 End: 09-07-2024 Emergency department patient visit PHYSICIAN [facility] Start: 09-05-2024 End: 09-05-2024 Telephone encounter Prudence Ornelas APRN.CNP Work Phone: [facility] Comment on above: Results; Patient Upd ate Start: 09-03-2024 End: 11-03-2024 Follow-up encounter Prudence Ornelas APRN.CNP Work Phone: [facility] Start: 09-02-2024 End: 09-02-2024 Patient encounter procedure Aurea Romario SHAHMEDICAL CARE MANAGER Work Phone: [facility] Comment on above: Acute right-sided ba ck pain, unspecified back location (Primary Dx) Start: 09-02-2024 End: 09-02-2024 ambulatory AUREA DOSS Facility:[facility] Procedures Date Procedure Procedure Detail Performing Clinician [...] exam ches t single view Celia Bennett MEDICAL CARE MANAGER Work Phone: Start: 09-16-2024 Orthopantogram Russ Carmen MD Work Phone: Start: 09-16-2024 Radiologic exam ches t single view Celia Bennett MEDICAL CARE MANAGER Work Phone: Start: 09-16-2024 Basic metabolic pane l calcium total Caro Suri Kruger MEDICAL CARE MANAGER Work Phone: Start: 09-16-2024 Complete blood count with white cell differential, manual Caro Suri Krugre MEDICAL CARE MANAGER Work Phone: Start: 09-15-2024 Smr prim src gram/gi emsa stain bct fungi/cell Russ Carmen MD Work Phone: Start: 09-15-2024 Radiologic exam ches t single view Claude Cosby MEDICAL CARE MANAGER Work Phone: Start: 09-15-2024 Basic metabolic pane l calcium total Caro Suri Kruger MEDICAL CARE MANAGER Work Phone: Start: 09-15-2024 Complete blood count with white cell differential, manual Caro Kruger MEDICAL CARE MANAGER Work Phone: Start: 09-15-2024 Radiologic exam ches t single view Claude Cosby MEDICAL CARE MANAGER Work Phone: Start: 09-14-2024 End: 09-14-2024 Iaad ia mult step method nos each organism Russ Carmen MD Work Phone: Start: 09-14-2024 Ct thorax w/contrast material Claude Cosby MEDICAL CARE MANAGER Work Phone: Start: 09-14-2024 Ct thorax w/o contra st material Celia Bennett MEDICAL CARE MANAGER Work Phone: Start: 09-14-2024 Basic metabolic pane l calcium total Caro Suri Kruger MEDICAL CARE MANAGER Work Phone: Start: 09-14-2024 C-reactive protein Ramiro rojelio Carmen MD Work Phone: Start: 09-14-2024 Complete blood count with white cell differential, manual Acro Suri Kruger MEDICAL CARE MANAGER Work Phone: Start: 2024 Basic metabolic pane l calcium total Caro Suri Kruger [facility] Work Phone: Start: 2024 Complete blood count with white cell differential, manual Caro Suri Kruger [facility] Work Phone: Start: 2024 Radiologic exam ches t single view Celia Bennett MEDICAL CARE MANAGER Work Phone: Start: 09-12-2024 Radiologic exam ches t single view Celia Bennett MEDICAL CARE MANAGER Work Phone: Start: 09-12-2024 Basic metabolic pane l calcium total Caro Suri Kruger [facility] Work Phone: Start: 09-12-2024 Complete blood count with white cell differential, manual Caro Suri Kruger [facility] Work Phone: Start: 09-11-2024 Radiologic exam ches t single view Celia Bennett MEDICAL CARE MANAGER Work Phone: Start: 09-11-2024 Basic metabolic pane l calcium total Caro Suri Kruger [facility] Work Phone: Start: 09-10-2024 Radiologic exam ches t single view Deanna Valdes DO Work Phone: Start: 09-10-2024 CV IR CHEST TUBE INS ERTION RIGHT Deanna Valdes DO Work Phone: Start: 09-10-2024 End: 09-10-2024 Basic metabolic panel calcium total Caro Suri Kruger [facility] Work Phone: Start: 09-10-2024 Complete blood count with white cell differential, manual Caro Kruger MEDICAL CARE MANAGER Work Phone: Start: 09-09-2024 Prothrombin time Claude Cosby MEDICAL CARE MANAGER Work Phone: Start: 09-09-2024 Ct thorax w/o contra st material Claude Cosby MEDICAL CARE MANAGER Work Phone: Start: 09-09-2024 Radiologic exam ches t single view Claude Cosby MEDICAL CARE MANAGER Work Phone: Start: 09-08-2024 Radiologic exam ches [...] et rgnt auto w/o microscopy Aurea Doss APRN.MEDICAL CARE MANAGER Work Phone: Plan of Treatment Date Care Activity Detail Author Start: 11-12-2034 Urine microalbumin profile DTaP,Tdap,Td Vaccine (2 - Td or Tdap) [facility] Start: 11-06-2025 Anxiety Screening Anxiety Screening [facility] Start: 11-06-2025 Depression Screening Depression Scre ening [facility] Start: 09-14-2025 Depression screening using PHQ-9 (Patient Health Questionnaire 9) score Depression Screening/Follow-Up (PHQ-2/9) [facility] Start: 05-16-2025 End: 05-16-2025 Nursing evaluation of patient and report 05/16/2025 3:00 PM EST Nurse Visit [facility] [address] [place] [address] Nurse, Ok [address] [place] [address] HPV #3 [facility] Comment on above: HPV #3 Start: 02-06-2025 End: 02-06-2025 Patient encounter procedure [facility] Comment on above: 2 Month F/U-Establis h Care 3 month follow up Start: 01-13-2025 End: 01-13-2025 Nursing evaluation of patient and report 01/13/2025 3:45 PM EDT Nurse Visit [facility] [address] [place] [address] Nurse, [place] [address] [place] [address] HPV #2 [facility] Comment on above: HPV #2 Start: 12-26-2024 End: 12-26-2024 Patient encounter procedure 12/26/2024 1:00 PM EDT Office Visit Pulmonary Medicine [address] [place] [address] Bambi Almonte APRN.MEDICAL CARE MANAGER [address] [place] [address] What are the spots n my lung Pulmonary Medicine Comment on above: What are the spots n my lung Start: 12-10-2024 HPV Vaccine (2 - 3-d ose SCDM series) HPV Vaccine (2 - 3-dose SCDM series) [facility] Start: 12-09-2024 End: 12-09-2024 Patient encounter procedure [facility] Comment on above: 2 Month F/U-Establis h Care Start: 12-06-2024 End: 12-06-2024 Patient encounter procedure 12/06/2024 9:00 AM EDT Office Visit [facility] [address] [facility] [address] [place] [id number] Chandu Mathew MD [address] [place] [address] [facility] Start: 12-04-2024 End: 12-04-2024 Patient encounter procedure 12/04/2024 1:00 PM EDT Office Visit [facility] [address] [facility] [address] [place] [address] Chandu Mathew MD [address] [place] [address] [facility] Start: 12-03-2024 End: 12-03-2024 Patient encounter procedure 12/03/2024 8:30 AM EDT Office Visit OB/Gynecology [address] [place] [address] Brandon Parker MD [address] [place] [address] (Fax) Encounter for health-related screening [Z13.9] OB/Gynecology Comment on above: Encounter for health -related screening [Z13.9] Start: 11-26-2024 End: 11-26-2024 Patient encounter procedure 11/26/2024 2:00 PM EDT Office Visit OB/Gynecology [address] [place] [address] Prudence Hendricks APRN.CN [address] [place] [address] (Fax) Encounter for health-related screening [Z13.9] OB/Gynecology Comment on above: Encounter for health -related screening [Z13.9] Start: 11-25-2024 Influenza vaccination [facility] Start: 11-18-2024 End: 11-18-2024 Patient encounter procedure 11/18/2024 2:00 PM EDT Office Visit OB/Gynecology [address] [place] [address] Jeny Talley APRN.MEDICAL CARE MANAGER [address] [place] [address] Encounter for health-related screening [Z13.9] OB/Gynecology Comment on above: Encounter for health -related screening [Z13.9] Start: 11-12-2024 End: 11-12-2024 Nursing evaluation of patient and report 11/12/2024 3:30 PM EDT Nurse Visit [facility] [address] [place] [address] Nurse, [place] [address] [place] [address] nurse visit vaccines DTAP, HPV and Prevnar 20 [facility] Comment on above: nurse visit vaccines DTAP, HPV and Prevnar 20 Start: 11-06-2024 End: 02-04-2025 C reactive protein [Mass/volume] in Serum or Plasma [facility] Comment on above: Expected: 11/06/2024 , Expires: 02/04/2025 Start: 11-06-2024 End: 02-04-2025 Chronic hepatitis differentiation between hepatitis B and C virus panel - Serum or Plasma [facility] Comment on above: Expected: 11/06/2024 , Expires: 02/04/2025 Start: 11-06-2024 End: 02-04-2025 Ferritin [Mass/volume] in Serum or Plasma [facility] Comment on above: Expected: 11/06/2024 , Expires: 02/04/2025 Start: 11-06-2024 End: 02-04-2025 Hemoglobin A1c in Blood [facility] Comment on above: Expected: 11/06/2024 , Expires: 02/04/2025 Start: 11-06-2024 End: 02-04-2025 HIV 1+2 Ab [Presence] in Serum or Plasma by Immunoassay [facility] Comment on above: Expected: 11/06/2024 , Expires: 02/04/2025 Start: 11-06-2024 End: 02-04-2025 Iron and Iron binding capacity panel - Serum or Plasma [facility] Comment on above: Expected: 11/06/2024 , Expires: 02/04/2025 Start: 11-06-2024 End: 02-04-2025 LIPID PANEL, NONFASTING [facility] Comment on above: Expected: 11/06/2024 , Expires: 02/04/2025 Start: 11-06-2024 End: 02-04-2025 Renal function 2000 panel - Serum or Plasma [facility] Work Phone: Comment on above: Expected: 11/06/2024 , Expires: 02/04/2025 Start: 11-06-2024 End: 02-04-2025 TSH W/REFLEX FT4 [facility] Comment on above: Expected: 11/06/2024 , Expires: 02/04/2025 Start: 11-06-2024 End: 11-06-2024 Patient encounter procedure Family Medicine Franny Comment on above: follow up Start: 11-04-2024 End: 11-04-2024 ambulatory 11/04/2024 2:00 PM EDT OT/PT/Speech Visit [facility] [address] [place] [address] Jaren Valente PT Strength [facility] Comment on above: Strength Start: 10-23-2024 End: 10-23-2024 Patient encounter procedure 10/23/2024 3:40 PM EDT Appointment Cat Scan [address] [place] [address] Headache, unspecified headache type [R51.9] Cat Scan Comment on above: Headache, unspecifie d headache type [R51.9] Start: 10-23-2024 End: 12-17-2024 CT Chest WO contrast CT Chest Without Contrast Imaging Routine Parapneumonic effusion Expected: 10/23/2024 (Approximate), Expires: 12/17/2024 [facility] Work Phone: Comment on above: Expected: 10/23/2024 (Approximate), Expires: 12/17/2024 Start: 10-21-2024 End: 10-21-2024 ambulatory 10/21/2024 8:30 AM EDT OT/PT/Speech Visit [facility] [address] [place] [address] Layo Mello, PT [address] [place] [address] Pleural effusion [J90]; Generalized weakness [R53.1]; Muscular deconditioning [R29.898] [facility] Comment on above: Pleural effusion [J9 0]; Generalized weakness [R53.1]; Muscular deconditioning [R29.898] Start: 10-16-2024 End: 01-15-2025 C reactive protein [Mass/volume] in Serum or Plasma [facility] Comment on above: Expected: 10/16/2024 , Expires: 01/15/2025 Start: 10-16-2024 End: 01-15-2025 Magnesium [Mass/volume] in Serum or Plasma [facility] Comment on above: Expected: 10/16/2024 , Expires: 01/15/2025 Start: 10-16-2024 End: 10-16-2024 Patient encounter procedure 10/16/2024 2:00 PM EDT Office Visit Family Jillian Blanton [address] [place] [address] Melvi Swanson MD [address] [place] [address] 1 week follow up Family Jillian Blanton Comment on above: 1 week follow up Start: 10-16-2024 End: 01-15-2025 Renal function 2000 panel - Serum or Plasma [facility] Work Phone: Comment on above: Expected: 10/16/2024 , Expires: 01/15/2025 Start: 10-11-2024 End: 10-11-2024 Admission to same day surgery center 10/11/2024 4:00 PM EDT - 10/11/2024 5:00 PM EDT Surgery Admitting [address] [address] [place]ksey [place]varado [place] [id number] [place] [id number] THORACENTESIS NEEDLE OR CATHETER ASPIRATION OF THE PLEURAL SPACE W IMAGING GUIDANCE Admitting Comment on above: THORACENTESIS NEEDLE OR CATHETER ASPIRATION OF THE PLEURAL SPACE W IMAGING GUIDANCE Start: 10-11-2024 Subsequent hospital visit by physician 10/11/2024 4:00 PM EDT Hospital Encounter Admitting [address] [address] [place] [address] [place] [id number] Pleural effusion [J90] Admitting Comment on above: Pleural effusion [J9 0] Start: 10-11-2024 End: 10-11-2024 Thoracentesis needle/cath pleura w/imaging THORACENTESIS NEEDLE OR CATHETER ASPIRATION OF THE PLEURAL SPACE W IMAGING GUIDANCE Pleural effusion 10/11/2024 4:00 PM EDT PULM LAB 3 Start: 10-11-2024 End: 10-11-2024 Patient encounter procedure 10/11/2024 1:45 PM EDT Office Visit Pulmonary Medicine [address] [id number] Glorai Crowell APRN.MEDICAL CARE MANAGER [address] [address] Pleural Effusion Pulmonary Medicine Comment on above: Pleural Effusion Start: 10-09-2024 End: 10-09-2024 Patient encounter procedure 10/09/2024 3:00 PM EDT Office Visit Family Medicine Franny [address] [place] [address] Melvi Swanson MD [address] [place], [place] [id number] 2 week follow up Family Medicine [facility]anny Comment on above: 2 week follow up Start: 10-09-2024 End: 01-08-2025 C reactive protein [Mass/volume] in Serum or Plasma [facility] Comment on above: Expected: 10/09/2024 , Expires: 01/08/2025 Start: 10-09-2024 End: 01-08-2025 Comprehensive metabolic 2000 panel - Serum or Plasma [facility] Work Phone: Comment on above: Expected: 10/09/2024 , Expires: 01/08/2025 Start: 10-09-2024 End: 01-08-2025 Erythrocyte sedimentation rate [facility] Comment on above: Expected: 10/09/2024 , Expires: 01/08/2025 Start: 10-09-2024 End: 01-08-2025 Magnesium [Mass/volume] in Serum or Plasma [facility] Comment on above: Expected: 10/09/2024 , Expires: 01/08/2025 Start: 10-09-2024 End: 01-08-2025 Phosphate [Mass/volume] in Serum or Plasma [facility] Comment on above: Expected: 10/09/2024 , Expires: 01/08/2025 Start: 10-02-2024 End: 01-01-2025 C reactive protein [Mass/volume] in Serum or Plasma C-REACTIVE PROTEIN Lab Routine Pleural effusion Expected: 10/02/2024, Expires: 01/01/2025 [facility] Comment on above: Expected: 10/02/2024 , Expires: 01/01/2025 Start: 10-02-2024 End: 01-01-2025 CBC W Auto Differential panel - Blood COMPLETE BLOOD COUNT AND DIFFERENTIAL Lab Routine Anemia, unspecified type Fatigue, unspecified type Expected: 10/02/2024, Expires: 01/01/2025 [facility] Work Phone: Comment on above: Expected: 10/02/2024 , Expires: 01/01/2025 Start: 10-02-2024 End: 01-01-2025 Erythrocyte sedimentation rate SEDIMENTATION RATE, WESTERGREN Lab Routine Pleural effusion Expected: 10/02/2024, Expires: 01/01/2025 [facility] Comment on above: Expected: 10/02/2024 , Expires: 01/01/2025 Start: 10-02-2024 End: 01-01-2025 Renal function 2000 panel - Serum or Plasma RENAL FUNCTION PANEL Lab Routine Pleural effusion Fatigue, unspecified type Expected: 10/02/2024, Expires: 01/01/2025 [facility] Comment on above: Expected: 10/02/2024 , Expires: 01/01/2025 Start: 2024 Screening for malign ant neoplasm of breast [facility] Start: 09-02-2024 End: 12-02-2024 Comprehensive metabolic 2000 panel - Serum or Plasma [facility] Work Phone: Comment on above: Expected: 09/02/2024 , Expires: 12/02/2024 Start: 11-26-2023 Covid-19 Vaccine ( season) Covid-19 Vaccine () [facility] Start: 07-11-2017 Screening for malign ant neoplasm of cervix Cervical Cancer Screening [facility] Start: 2014 Screening for malign ant neoplasm of cervix [facility] Start: 09-14-2011 HPV Vaccine (1 - 3-d ose SCDM series) HPV Vaccine (1 - 3-dose SCDM series) [facility] Start: 2005 Screening for malign ant neoplasm of cervix Pap Smear [facility] Start: 09-14-2003 Hepatitis B Vaccine (1 of 3 - 19+ 3-dose series) Hepatitis B Vaccine (1 of 3 - 19+ 3-dose series) [facility] Start: 09-14-2003 Pneumococcal vaccination Pneum ococcal Vaccine (1 of 2 - PCV) [facility] Start: 09-14-2003 Pneumococcal Vaccine : Ped or At-Risk (1 of 2 - PCV) Pneumococcal Vaccine: Ped or At-Risk (1 of 2 - PCV) [facility] Start: 09-14-2003 Urine microalbumin profile DTaP,Tdap,Td Vaccine (1 - Tdap) [facility] Start: 2002 Anxiety Screening Anxiety Screening [facility] Start: 2002 Depression Screening Depression Scre ening [facility] Start: 2002 Hepatitis C screening Hepatitis C Sc reening [facility] Start: 2002 HIV screening HIV Screening [facility] Start: 09-14-1987 History and physical examination, annual for health maintenance Wellness Visit [facility] Start: 1984 Tetanus vaccination Tetanus: Every 1 0yrs [facility] 9vhpv vacc 2/3 dose sched im use HPV VACCINE, 9-VALENT (GARDASIL 9) Immunization/Injection Routine Encounter for immunization Annual physical exam Ordered: 11/06/2024 [facility] Comment on above: Ordered: 11/06/2024 Bacteria identified in Sputum by Aerobe culture Sputum Aerobic Culture Microbiology Routine 09/15/2024 6:42 PM EDT [facility] Work Phone: End: 11-15-2025 CT Head WO contrast CT BRAIN WO IVCON Radiology STAT Headache, unspecified headache type 1 Occurrences starting 10/16/2024 until 11/15/2025 [facility] Comment on above: 1 Occurrences starti ng 10/16/2024 until 11/15/2025 End: 11-28-2025 DBT Breast - bilateral screening VAHE SCREENING W PAU Radiology Routine Encounter for screening mammogram for breast cancer 1 Occurrences starting 10/29/2024 until 11/28/2025 [facility] Work Phone: Comment on above: 1 Occurrences starti ng 10/29/2024 until 11/28/2025 Pneumococcal vaccination PNEUMOC OCCAL VACCINE, 20 VALENT (PREVNAR 20) Immunization/Injection Routine Encounter for immunization Annual physical exam Ordered: 11/06/2024 [facility] Comment on above: Ordered: 11/06/2024 Tdap vaccine 7 yrs/> im TDAP VAC CINE, AGE 7+ YR (ADACEL, BOOSTRIX) Immunization/Injection Routine Encounter for immunization Annual physical exam Ordered: 11/06/2024 [facility] Comment on above: Ordered: 11/06/2024 US THORACENTESIS (PO C) FOR PULM USE ONLY US THORACENTESIS (POC) FOR PULM USE ONLY Imaging Diagnostic Routine Pleural effusion Ordered: 10/03/2024 [facility] Work Phone: Comment on above: Ordered: 10/03/2024 End: 11-01-2025 US Upper extremity vein - bilateral US DVT UPPER BILATERAL Radiology Routine Pleural effusion Anemia, unspecified type Generalized weakness Fatigue, unspecified type 1 Occurrences starting 10/02/2024 until 11/01/2025 [facility] Comment on above: 1 Occurrences starti ng 10/02/2024 until 11/01/2025 US Upper extremity v ein - bilateral US DVT UPPER BILATERAL Radiology Routine Pleural effusion Anemia, unspecified type Generalized weakness Fatigue, unspecified type 10/07/2024 5:19 PM EDT [facility] Work Phone: End: 10-03-2025 US Upper extremity veins - bilateral US ARM VEIN DVT [facility] Vascular Lab Routine Pleural effusion Generalized weakness Muscular deconditioning Fatigue, unspecified type 1 Occurrences starting 10/03/2024 until 10/03/2025 [facility] Comment on above: 1 Occurrences starti ng 10/03/2024 until 10/03/2025 End: 11-01-2025 XR Chest PA and Lateral XR CHEST 2V FRONTAL/LAT Radiology Routine Pleural effusion 1 Occurrences starting 10/02/2024 until 11/01/2025 [facility] Comment on above: 1 Occurrences starti ng 10/02/2024 until 11/01/2025 Immunizations Immunization Date Immunization Notes Care Provider Oscar quevedo 11-12-2024 Human Papillomavirus 9-valent vaccine Ok Nurse Work Phone: [facility] 11-12-2024 pneumococcal conjuga te (PCV20) vaccine, 20 valent (PREVNAR 20) Ok Nurse Work Phone: [facility] 11-12-2024 tetanus toxoid, redu toby diphtheria toxoid, and acellular pertussis vaccine, adsorbed Ok Nurse Work Phone: [facility] NEGATED: Highlighted row has not occurred!11-06-2024 Human Papillomavirus 9-valent vaccine Melvi Swanson MD Work Phone: [facility] Comment on above: Deferred: Postponed NEGATED: Highlighted row has not occurred!11-06-2024 pneumococcal conjugate (PCV20) vaccine, 20 valent (PREVNAR 20) Melvi Swanson MD Work Phone: [facility] Comment on above: Deferred: Postponed NEGATED: Highlighted row has not occurred!11-06-2024 tetanus toxoid, reduced diphtheria toxoid, and acellular pertussis vaccine, adsorbed Melvi Swanson MD Work Phone: [facility] Comment on above: Deferred: Postponed Payers Date Payer Category Payer [employer] Blue [employer] [id number] 2022 Unknown [id number] 1985 Unknown [id number] 1985 Unknown [id number] Social History Date Type Detail Facility Start: 08-14-2013 End: 10-02-2024 Tobacco smoking status NHIS Smokes tobacco daily [facility] History of tobacco use Cigarette Smoker C [facility] Start: 08-14-2013 End: 10-02-2024 Cigarettes smoked current (pack per day) - Reported 1 [facility] Start: 08-14-2013 End: 09-07-2024 Tobacco use and exposure Smokeless tobacco non-user [facility] Start: 11-10-2021 End: 10-16-2024 Alcoholic beverage intake Current non-drinker of alcohol (finding) [facility] Start: 04-16-2018 End: 10-02-2024 Tobacco use panel [facility] Start: 02-26-2012 Adult Depression Scr eening Assessment 0 [facility] Start: 1985 Sex assigned at Not on file C [facility] Start: 09-11-2024 Alcoholic beverage intake Life time non-drinker (finding) [facility] Has the [employer], or [employer] threatened to shut off services in your home in past 12Mo No [facility] (I/We) worried wheth er (my/our) food would run out before (I/we) got money to buy more. Never true [facility] Start: 10-02-2024 Tobacco use and exposure User of smokeless tobacco [facility] Start: 10-02-2024 Tobacco Comment Willing to cut down to half pack per da [facility] Are you now , , , , never or living with a partner? Never [facility] How often to you hav e a drink containing alcohol? Never [facility] How hard is it for y ou to pay for the very basics like food, housing, medical care, and heating Somewhat hard [facility] Do you feel stress - tense, restless, nervous, or anxious, or unable to sleep at night because your mind is troubled all the time - these days [OSQ] Not at all [facility] In the past 12 month s, was there a time when you were not able to pay the mortgage or rent on time? Yes [facility] Functional Status Date Assessment Result Facility 11-05-2024 Total score [AUDIT-C] 0 11/06/19 1:20 PM EDT [email or web address] [facility] 11-05-2024 How often to you hav e a drink containing alcohol? Never 11/05/2024 1:20 PM EDT User, [email or web address] Never [facility] 11-05-2024 Functional status Patient does n ot drink 11/05/2024 1:20 PM EDT User, Kvng Patient does not drink [facility] 11-05-2024 How often do you hav e 6 or more drinks on 1 occasion? Never 11/05/2024 1:20 PM EDT UserKvng Never [facility] 08-14-2013 Are you deaf, or do you have serious difficulty hearing No 08/14/2013 3:57 PM EDT Bev Finch MA No [facility] 08-14-2013 Are you blind, or do you have serious difficulty seeing, even when wearing glasses No 08/14/2013 3:57 PM EDT Bev Finch MA No [facility] 08-14-2013 Do you have serious difficulty walking or climbing stairs No 08/14/2013 3:57 PM EDT Bev Finch MA No [facility] 08-14-2013 Do you have difficul ty dressing or bathing No 08/14/2013 3:57 PM EDT Bev Finch MA No [facility] 08-14-2013 Because of a physica l, mental, or emotional condition, do you have difficulty doing errands alone such as visiting a physician's office or shopping No 08/14/2013 3:57 PM EDT Bev Finch MA No [facility] Mental Status Date Assessment Result Facility 08-14-2013 Because of a physica l, mental, or emotional condition, do you have serious difficulty concentrating, remembering, or making decisions No 08/14/2013 3:57 PM EDT Bev Finch MA No [facility] Clinical Notes 09-02-2024 to 11-12-2024 DENISE ARTHUR - 11/12/2024 3:49 PM EDTTelephone Encounter - Melvi Swanson MD - 11/07/2024 8:13 PM EDTTelephone Encounter - Melvi Swanson MD - 11/07/2024 8:13 PM EDTPatient Instructions Note Date & Type Note Facility 11-12-2024 Note HNO ID: [id number] Author: ?, ?, ? Service: ? Author Type: Licensed Nurse Type: Progress Notes Filed: 11/12/2024 15:50 Note Text: Patient presents for TDAP, HPV, and Pneumococcal vaccines. Denies any problems at this time. Tolerated injections well. Denise Arthur LPN [facility] 11-12-2024 History of Present illness Narrative Patient presents for TDAP, HPV, and Pneumococcal vaccines. Denies any problems at this time. Tolerated injections well. Denise Arthur LPN documented in this encounter [facility] 11-07-2024 Telephone encounter Note HLD, Prediabetes, recommending lifestyle changes and will start metformin if patient would like. Also will refer to repair supervisor if patient agreeable. [facility] 11-07-2024 Miscellaneous Notes HLD, Prediabetes, recommending lifestyle changes and will start metformin if patient would like. Also will refer to repair supervisor if patient agreeable. documented in this encounter [facility] 11-06-2024 History of Present illness Narrative Radiology [...] PATIENT PRESENTS WITH AN IMPLANTABLE OR ATTACHED MATCHER OFFBEARER: No RADIOLOGY DEPARTMENT: General X-ray: Exam(s) Completed: Chest X-Ray PERIPHERAL IV DATA: Not applicable SIGNED BY: RT Ani(Zenia) November 06, 2024 3:07 PM documented in this encounter [facility] 11-06-2024 Note HNO ID: [id number] Author: IVONNE MIX RT(R) Service: ? Author [...] PATIENT PRESENTS WITH AN IMPLANTABLE OR ATTACHED MATCHER OFFBEARER: No RADIOLOGY DEPARTMENT: General X-ray: Exam(s) Completed: Chest X-Ray PERIPHERAL IV DATA: Not applicable SIGNED BY: DAVIS Law) November 06, 2024 3:07 PM [facility] 11-06-2024 Instructions Melvi Swanson MD - 11/06/2024 [...] least 1 or 2 times per week Curtis, trout, jarvis, water-packed tuna, mackerel (or fish oil supplement); flaxseed, spinach, walnuts Fried fish ( except when iniguez fried in olive oil) Healthy oils for cooking, salad dressing, and other uses Extra-virgin olive oil, canola oil, flaxseed oil (high-oleic sunflower or safflower oil may also be an option) Murray-6 oils, (corn, sunflower, safflower, soybean, peanut) Peas, beans, legumes, and nuts Soybeans, lentils, or any kind of peas, beans, or legumes; tree nuts (eg. Almonds,pecans, walnuts, Baltic nuts) Heavily salted or honey-roasted nuts; stale [...] partially hydrogenated oil documented in this encounter [facility] 11-06-2024 Note HNO ID: [id number] Author: MELVI SWANSON MD Service: ? Author [...] vomiting, or diarrhea or abdominal pain. No [place] bleeding or melana : No history of [...] General: Awake, alert, not in acute distress HEAD GRINDER: Answering questions appropriately. No abnormal posturing or [...] Abs Lymph 1.00 - 4.00 k/uL 2.00 Williams% % 4.7 Abs Williams <0.87 k/uL 0.36 Eosin% % 0.1 Abs [...] empyema, finishing wojciech (more content not included)... [facility] 11-06-2024 History of Present illness Narrative Images [...] vomiting, or diarrhea or abdominal pain. No IL bleeding or melana : No history of [...] General: Awake, alert, not in acute distress HEAD GRINDER: Answering questions appropriately. 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 Other fatigue - ICD9: 780.79, ICD10: [...] Melvi Swanson MD Internal Medicine and Pediatrics [facility] 11/06/2024 7:34 PM Portions of note generated prior to visit. History of illness, past medical and surgical history, family and social history, medications, allergies, labs and imaging reviewed during visit and are updated as appropriate following visit. I spent 60 minutes in the visit, with more than 50% of the total ooxl-rj-grdm time of the visit in counseling / coordination of care. Future Appointments Date Time Provider Department Center 11/12/2024 3:30 PM Joie Melissa [facility] 11/26/2024 2:00 PM Prudence Hendricks APRN.CNM [facility] 02/06/2025 6:20 PM Melvi Swanson MD FAMPWS [facility] [1] Social History Tobacco Use Smoking status: Every Day Current packs/day: 1.00 Average packs/day: 1 pack/day for 24.0 years (24.0 ttl pk-yrs) Types: Cigarettes Smokeless tobacco: Current Tobacco comments: Willing to cut down to half pack per da Substance Use Topics Alcohol use: No Drug use: No documented in this encounter [facility] 10-29-2024 Note Patient Outreach (IN TSTJ) GRICEL PATEL ([id number]) 1985 F Date Time Provider Department 10/29/24 MELVI SWANSON [facility] During your visit today, we recorded the following information about you: Allergies As of Date: 10/29/2024 Noted Allergy Reaction VICODIN (HYDROCODONE-ACETAMINOPHE* 005 8 - GI Upset Comments: Patient c/o nausea and dizziness Date Reviewed: 10/16/2024 Reviewed by: Stephanie Wolf MA - Fully Assessed Visit Diagnosis:Encounter for screening mammogram for breast cancer [Z12.31] Order(s):VAHE SCREENING W PAU [[id number]] Order #: [id number] FUTURE Prescriptions as of 11/29/2024 - nicotine (NICODERM) 14 mg/24 hr Apply 1 patch as directed every 24 hours. Problem List As Of Date 10/29/2024 Noted Resolved Genital herpes [A60.00] 07/10/2012 Encounter Status:Closed by [employer] on 11/29/24 [facility] 10-18-2024 Telephone encounter Note Message left notifying patient of result note to review. [facility] 10-18-2024 Miscellaneous Notes Message left notifying patient of result note to review. documented in this encounter [facility] 10-18-2024 Telephone encounter Note Form has been faxed to [phone]. [facility] 10-18-2024 Miscellaneous Notes Form has been faxed to [phone]. LEFT MESSAGE FOR PATIENT TO CALL OFFICE. Patient has been identified by name and date of : Yes, Provider Melvi Swanson MD Date 10/16/2024 Time 513pm Type of form: FMLA Form received via: Fax When form is completed, contact patient . Form has been forwarded to: Provider's desk. Provider name: MD Stephanie Clemente MA documented in this encounter [facility] 10-17-2024 Telephone encounter Note LEFT MESSAGE FOR PATIENT TO CALL OFFICE. [facility] 10-16-2024 Telephone encounter Note Patient has been identified by name and date of : Yes, Provider Melvi Swanson MD Date 10/16/2024 Time 513pm Type of form: FMLA Form received via: Fax When form is completed, contact patient . Form has been forwarded to: Provider's desk. Provider name: MD Stephanie Clemente MA [facility] 10-16-2024 Melvi Page MD - 10/16/2024 2:35 [...] the room spinning. documented in this encounter [facility] 10-16-2024 History of Present illness Narrative Images [...] vomiting, or diarrhea or abdominal pain. No [place] bleeding or melana : No history of [...] General: Awake, alert, not in acute distress HEAD GRINDER: Answering questions appropriately. No abnormal posturing or [...] 3 weeks if new or worsening symptoms. Melvi Swanson Remainder of plan including medications [...] Melvi Swanson MD Internal Medicine and Pediatrics [facility] 10/16/2024 2:53 PM Portions of note generated prior to visit. History of illness, past medical and surgical history, family and social history, medications, allergies, labs and imaging reviewed during visit and are updated as appropriate following visit. I spent 30 minutes in the visit, with more than 50% of the total kvxq-gl-zvel time of the visit in counseling / coordination of care. Future Appointments Date Time Provider Department Center 10/16/2024 3:00 PM LAB [facility] LAB [facility] 10/23/2024 3:[address] [facility] [facility] (I-STAT) RCTWS Franny Bazan 11/06/2024 1:40 PM Melvi Swanson MD FAMPWS [facility] 11/26/2024 2:00 PM Prudence Hendricks APRN.CNM OBGYWM Fr[facility] Bazan 12/09/2024 1:00 PM Melvi Swanson MD FAMPWS [facility] documented in this encounter [facility] 10-16-2024 Note HNO ID: [id number] Author: MELVI SWANSON MD Service: ? Author [...] vomiting, or diarrhea or abdominal pain. No IL bleeding or melana : No history of [...] General: Awake, alert, not in acute distress HEAD GRINDER: Answering questions appropriately. No abnormal posturing or [...] with normal c (more content not included)... [facility] 10-10-2024 History of Present illness Narrative Radiology [...] PATIENT PRESENTS WITH AN IMPLANTABLE OR ATTACHED MATCHER OFFBEARER: No ALLERGIES: Reviewed and unchanged CONTRAST ALLERGY: [...] TIME: 4:00 PM documented in this encounter [facility] 10-10-2024 Note HNO ID: [id number] Author: JACKLYN PARK RT(R) Service: ? Author Type: Stenographer [employer] Type: Progress Notes Filed: 10/10/2024 16:01 Note [...] PATIENT PRESENTS WITH AN IMPLANTABLE OR ATTACHED MATCHER OFFBEARER: No ALLERGIES: Reviewed and unchanged CONTRAST ALLERGY: [...] DATE: October 10, 2024 TIME: 4:00 PM [facility] 10-10-2024 Telephone encounter Note Spoke with pt to schedule visit and Thoracentesis 10/11/24 beginning @ 1:45 pm. [facility] 10-10-2024 Miscellaneous Notes Spoke with pt to schedule visit and Thoracentesis 10/11/24 beginning @ 1:45 pm. Contacted patient to schedule visit and Thoracentesis.No answer,left message. documented in this encounter [facility] 10-10-2024 Note HNO ID: [id number] Author: UGO HERNANDEZ DO Service: ? Author Type: Physician Type: Progress Notes Filed: 10/10/2024 13:23 Note Text: CONSULTING SERVICE: Pulmonary Medicine Consultation requested by Melvi Swanson for an opinion regarding Gricel Paetl. My final recommendations will be communicated back [...] the requesting team. The patient or patient's territory account representative consented to e-consultation. Ugo Hernandez, Pulmonary AND Critical Care Medicine [facility] 10-10-2024 History of Present illness Narrative Images [...] the requesting team. The patient or patient's territory account representative consented to e-consultation. Ugo Hernandez DO Pulmonary & Critical Care Medicine documented in this encounter [facility] 10-10-2024 Note HNO ID: [id number] Author: MELVI SWANSON MD Service: ? Author Type: Physician Type: Progress Notes Filed: 10/10/2024 12:35 Note Text: IP consult [facility] 10-10-2024 History of Present illness Narrative IP consult documented in this encounter [facility] 10-10-2024 Telephone encounter Note Contacted patient to schedule visit and Thoracentesis.No answer,left message. [facility] 10-10-[address] scan w/ IV con to evaluate for PNA, empyema and PE [facility] 10-10-[address] scan w/ IV con to evaluate for PNA, empyema and PE documented in this encounter [facility] 10-10-2024 Telephone encounter Note Ordering CTPE Will call pt to let her know [facility] 10-10-2024 Miscellaneous Notes Ordering CTPE Will call pt to let her know documented in this encounter [facility] 10-09-2024 History of Present illness Narrative Radiology [...] PATIENT PRESENTS WITH AN IMPLANTABLE OR ATTACHED MATCHER OFFBEARER: No RADIOLOGY DEPARTMENT: General X-ray: Exam(s) Completed: Chest X-Ray PERIPHERAL IV DATA: Not applicable SIGNED BY: RT Torres(R) October 09, 2024 3:53 PM documented in this encounter [facility] 10-09-2024 Note HNO ID: [id number] Author: MONTANA PEARSON RT(Zenia) Service: ? Author Type: Stenographer Print Shop Type: Progress Notes Filed: 10/09/2024 16:00 Note [...] PATIENT PRESENTS WITH AN IMPLANTABLE OR ATTACHED MATCHER OFFBEARER: No RADIOLOGY DEPARTMENT: General X-ray: Exam(s) Completed: Chest X-Ray PERIPHERAL IV DATA: Not applicable SIGNED BY: RT Torres(R) October 09, 2024 3:53 PM [facility] 10-09-2024 Note HNO ID: [id number] Author: KUN BROWN MD Service: ? Author [...] necessary Kun Brown MD October 09, 2024 [facility] 10-09-2024 History of Present illness Narrative Infectious [...] October 09, 2024 documented in this encounter [facility] 10-09-2024 Instructions Melvi Swanson MD - 10/09/2024 3:28 PM EDT Blood work, xray and will try to coordinate getting ultrasound and possible pleural studies at main campus. Will refer for infectious disease and pulmonology within our system. Please continue augmentin for 3 weeks. Please follow up in one week or sooner if needed. documented in this encounter [facility] 10-09-2024 History of Present illness Narrative Images [...] vomiting, or diarrhea or abdominal pain. No IL bleeding or melana : No history of [...] acute distress. 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 No abnormal posturing or [...] Abs Lymph 1.00 - 4.00 k/uL 1.89 Williams% % 6.3 Abs Williams <0.87 k/uL 0.36 Eosin% % 2.5 Abs [...] Melvi Swanson MD Internal Medicine and Pediatrics [facility] 10/09/2024 4:18 PM Portions of note generated prior to visit. History of illness, past medical and surgical history, family and social history, medications, allergies, labs and imaging reviewed during visit and are updated as appropriate following visit. Future Appointments Date Time Provider Department Center 10/21/2024 8:30 AM Layo Mello PT PTWS [facility] 11/26/2024 2:00 PM Prudence Hendricks APRN.CNM OBGYWM [facility] 12/09/2024 1:00 PM [facility] I spent 45 minutes in the visit, with more than 50% of the total rvpq-re-otqm time of the visit in counseling / coordination of care. documented in this encounter [facility] 10-09-2024 Note HNO ID: [id number] Author: MELVI SWANSON MD Service: ? Author [...] vomiting, or diarrhea or abdominal pain. No IL bleeding or melana : No history of [...] acute distress. 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 No abnormal posturing or [...] 3.92 Hemoglobin 1 (more content not included)... [facility] 10-07-2024 Telephone encounter Note Yes and ok for or Monday. [facility] 10-07-2024 Miscellaneous Notes Yes and ok for or Monday. Spoke with staff at [facility]. They can do the jugular ultrasound but not the effusion ultrasound. [facility] can do the effusion ultrasound. Would this be acceptable? Please advise for scheduling purposes. Stacie Melo Order for the bilateral jugular artery needs changed to vascular lab STAT and will be completed at [facility]. documented in this encounter [facility] 10-07-2024 History of Present illness Narrative Radiology [...] PATIENT PRESENTS WITH AN IMPLANTABLE OR ATTACHED MATCHER OFFBEARER: No RADIOLOGY DEPARTMENT: Ultrasound PERIPHERAL IV DATA: Not applicable SIGNED BY: Kandi Jacobsen RDMS, TIERNEY October 07, 2024 5:17 PM documented in this encounter [facility] 10-07-2024 Note HNO ID: [id number] Author: KANDI JACOBSEN RT(R) Service: ? Author [...] PATIENT PRESENTS WITH AN IMPLANTABLE OR ATTACHED MATCHER OFFBEARER: No RADIOLOGY DEPARTMENT: Ultrasound PERIPHERAL IV DATA: Not applicable SIGNED BY: Kandi Jacobsen RDMS, TIERNEY October 07, 2024 5:17 PM [facility] 10-07-2024 Telephone encounter Note Spoke with staff at [facility]. They can do the jugular ultrasound but not the effusion ultrasound. [facility] can do the effusion ultrasound. Would this be acceptable? Please advise for scheduling purposes. Stacie Melo [facility] 10-07-2024 Telephone encounter Note Order for the bilateral jugular artery needs changed to vascular lab STAT and will be completed at [facility]. [facility] 10-03-2024 Telephone encounter Note Xray results [facility] 10-03-2024 Miscellaneous Notes Xray results documented in this encounter [facility] 10-03-2024 Note Addended by: Brenda SWANSON on: 10/03/2024 05:20 PM Modules accepted: Orders [facility] 10-03-2024 Miscellaneous Notes Addended by: MELVI SWANSON [...] blunting on image. documented in this encounter [facility] 10-03-2024 Telephone encounter Note ID October 15 [...] appearance of costophrenic angle blunting on image. [facility] 10-03-2024 History of Present illness Narrative Radiology [...] PATIENT PRESENTS WITH AN IMPLANTABLE OR ATTACHED MATCHER OFFBEARER: No RADIOLOGY DEPARTMENT: General X-ray: Exam(s) Completed: Chest X-Ray PERIPHERAL IV DATA: Not applicable SIGNED BY: RT Reza(Zenia) October 03, 2024 1:52 PM documented in this encounter [facility] 10-03-2024 Note HNO ID: [id number] Author: MIKAYLA LEACH RT (R) Service: ? [...] PATIENT PRESENTS WITH AN IMPLANTABLE OR ATTACHED MATCHER OFFBEARER: No RADIOLOGY DEPARTMENT: General X-ray: Exam(s) Completed: Chest X-Ray PERIPHERAL IV DATA: Not applicable SIGNED BY: RT Reza(Zenia) October 03, 2024 1:52 PM [facility] 10-02-2024 Note Addended by: Brenda SWANSON on: 10/02/2024 02:10 PM Modules accepted: Orders [facility] 10-02-2024 Miscellaneous Notes Addended by: MELVI SWANSON on: 10/02/2024 02:10 PM Modules accepted: Orders documented in this encounter [facility] 10-02-2024 Note Addended by: Brenda SWANSON on: 10/02/2024 01:53 PM Modules accepted: Orders [facility] 10-02-2024 Miscellaneous Notes Addended by: MELVI SWANSON on: 10/02/2024 01:53 PM Modules accepted: Orders Lab add on documented in this encounter [facility] 10-02-2024 Telephone encounter Note Lab add on [facility] 10-02-2024 Instructions Melvi Swanson MD - 10/02/2024 9:40 AM EDT Please follow up with pulmonology, infectious diease and dentistry. Please return in two months for follow up. Please see gynecology Please get labwork and an XRAY and see physical therapy. documented in this encounter [facility] 10-02-2024 History of Present illness Narrative Images from the original note were not included. Family Medicine OUTPATIENT VISIT October 01, 2024 Establish Care CC: Hospital follow up HPI: 39 year old female patient, previously well except hx tobacco abuse, presenting for hospital discharge follow up after admission for pleural effusion. Recent admission to [facility] from 09/07 to 09/16 after presenting with [...] vomiting, or diarrhea or abdominal pain. No IL bleeding or melana : No history of [...] General: Awake, alert, not in acute distress HEAD GRINDER: Answering questions appropriately. No abnormal posturing or [...] states her other specialists (seems possibly her food beverage supervisor) is filling her FMLA. - XR CHEST [...] Melvi Swanson MD Internal Medicine and Pediatrics [facility] 10/02/2024 10:06 AM Portions of note generated prior to visit. History of illness, past medical and surgical history, family and social history, medications, allergies, labs and imaging reviewed during visit and are updated as appropriate following visit. Future Appointments Date Time Provider Department Center 10/21/2024 8:30 AM Layo Mello, PT PTWS [facility] 12/09/2024 1:00 PM Melvi Swanson MD [facility] Medical Decision Making: Problems: Low: Stable chronic illness Moderate: New problem with uncertain prognosis Data: Unique test result(s) reviewed: 3+ Unique test(s) ordered: 3+ Medical Decision Making Level: 4 - Moderate documented in this encounter [facility] 10-02-2024 Note HNO ID: [id number] Author: MELVI SWANSON MD Service: ? Author Type: Physician Type: Progress Notes Filed: 10/02/2024 13:33 Note Text: Family Medicine OUTPATIENT VISIT October 01, 2024 Establish Care CC: Hospital follow up HPI: 39 year old female patient, previously well except hx tobacco abuse, presenting for hospital discharge follow up after admission for pleural effusion. Recent admission to [facility] from 09/07 to 09/16 after presenting with [...] vomiting, or diarrhea or abdominal pain. No IL bleeding or melana : No history of [...] Paternal Grandmother B (more content not included)... [facility] 09-16-2024 History of Present illness Narrative IV [...] No Nutrition Related Allergies noted Cultural or Orthodoxy Dietary Needs :No Cultural or Orthodoxy Dietary needs noted Patient/family comments:selecting menu Difficulty [...] Gricel Patel Admit Date: [id number] MR #: [id number] : 1985 Physicians: No, Physician (Family); Randy [...] follow with you. I discussed with the food beverage supervisor Dr. Johnson management plan. I discussed with [...] excoriations Musculoskeletal: No joint swelling, non tender HEAD GRINDER: Awake, and Ox3 Wound: Samuel Catheter: IV [...] fissure. Small pneumothorax component is unchanged. 2. Fbtb-hj-dnusoaxi infiltrative changes and atelectasis in the right lower lobe and right middle lobe, unchanged. Ongoing pneumonia/inflammatory airways disease in this area is a consideration. 3. Minimal atelectasis in the left lower lobe. [employer] Workstation ID: [id number] CT Chest Without Contrast [...] Image guided right chest tube placement (24 Argentine Thal quick) PROCEDURE: INTRAVENOUS MODERATE SEDATION AND MONITORING. IMAGE GUIDED PLACEMENT OF RIGHT CHEST TUBE PHYSICIAN: Deanna Valdes D.O. [facility] [address] [place] [address] [place] [address] (O) [phone] (F) [phone] ANESTHESIA: Intravenous moderate sedation with continuous physiological [...] over the wire to advance a 24 Argentine without quick catheter into the abscess cavity and confirmed to be in appropriate position on post placement fluoroscopic images. Catheter was sutured in place with 0 Prolene pursestring suture, sterile dressings were placed and the catheter was connected to a pleur-evac system. Workstation ID: [id number] CT Chest Without Contrast Final Result 1. There is a decrease drzqc-ul-xxlfkenl right-sided hydropneumothorax compared to 09/07/2024 but similar to recent x-ray 09/09/2024. Previous small bore right pleural drain has backed out of the pleural space along the right chest wall. 2. Bilateral pulmonary opacities suggesting atelectasis. Superimposed pneumonia is not excluded. 3. Prior granulomatous disease. [facility] Workstation ID: [id number] XR Chest 1 View Final Result Right gnm-ge-qzqrt chest pigtail catheter in place. Possible underlying [...] 25 mg, 25 mg, Oral, TID PRN, Caro Kruger CNP, 25 mg at 09/12/24 1522 [...] fissure. Small pneumothorax component is unchanged. 2. Cvsx-ry-tgnivxqw infiltrative changes and atelectasis in the right lower lobe and right middle lobe, unchanged. Ongoing pneumonia/inflammatory airways disease in this area is a consideration. 3. Minimal atelectasis in the left lower lobe. [employer] Workstation ID: [id number] CT Chest Without Contrast [...] Image guided right chest tube placement (24 Argentine Thal quick) PROCEDURE: INTRAVENOUS MODERATE SEDATION AND MONITORING. IMAGE GUIDED PLACEMENT OF RIGHT CHEST TUBE PHYSICIAN: Deanna Valdes D.O. [facility], [place] [address] (O) [phone] (F) [phone] ANESTHESIA: Intravenous moderate sedation with continuous physiological [...] over the wire to advance a 24 Argentine without quick catheter into the abscess cavity and confirmed to be in appropriate position on post placement fluoroscopic images. Catheter was sutured in place with 0 Prolene pursestring suture, sterile dressings were placed and the catheter was connected to a pleur-evac system. Workstation ID: [id number] CT Chest Without Contrast Final Result 1. There is a decrease qwsjr-fy-ctkwocnb right-sided hydropneumothorax compared to 09/07/2024 but similar to recent x-ray 09/09/2024. Previous small bore right pleural drain has backed out of the pleural space along the right chest wall. 2. Bilateral pulmonary opacities suggesting atelectasis. Superimposed pneumonia is not excluded. 3. Prior granulomatous disease. [facility]/lab Workstation ID: [id number] XR Chest 1 View Final Result Right mal-ei-tpnam chest pigtail catheter in place. Possible underlying [...] (PF) AND sodium chloride 0.9 %, traZODone [facility] PROGRESS NOTE Patient Name: Griecl Paetl : 1985 Assessment and Plan Gricel Patel [...] left base, unchanged. No new process identified. [employer] Workstation ID: [id number] XR Chest 1 View [...] left base, unchanged. No new process identified. [employer] Workstation ID: [id number] Chest Tube Right Final Result Image guided right chest tube placement (24 Argentine Thal quick) PROCEDURE: INTRAVENOUS MODERATE SEDATION AND MONITORING. IMAGE GUIDED PLACEMENT OF RIGHT CHEST TUBE PHYSICIAN: Deanna Valdes D.O. [facility] [address] [place] [address] (O) [phone] (F) [phone] ANESTHESIA: Intravenous moderate sedation with continuous physiological [...] over the wire to advance a 24 Argentine without quick catheter into the abscess cavity and confirmed to be in appropriate position on post placement fluoroscopic images. Catheter was sutured in place with 0 Prolene pursestring suture, sterile dressings were placed and the catheter was connected to a pleur-evac system. Workstation ID: [id number] CT Chest Without Contrast Final Result 1. There is a decrease uoxrr-gf-tkejtfzf right-sided hydropneumothorax compared to 09/07/2024 but similar to recent x-ray 09/09/2024. Previous small bore right pleural drain has backed out of the pleural space along the right chest wall. 2. Bilateral pulmonary opacities suggesting atelectasis. Superimposed pneumonia is not excluded. 3. Prior granulomatous disease. [facility]/lab Workstation ID: [id number] XR Chest 1 View Final Result Right ipy-vy-pkvht chest pigtail catheter in place. Possible underlying catheter retraction compared to 09/08/2024. Tip may be in the extrapleural space. Small right hydropneumothorax. Pleural separation at the lateral aspect of the right mid chest measures up to 9 mm. Results were called by Dr. Eric Rayo to Claude LEMA on 09/09/2024 at 0920. /[facility] Workstation ID: [id number] XR Chest 1 View [...] Spent in Direct Patient Care: 15 Narrative: After School Counselor visited pt Misti while rounding on the unit. Pt was very nice, looking forward to going home as soon as the doctor feels that she is ready. After School Counselor provided compassionate presence and remains available upon request for support. Patients Response to Pastoral Care: Appeared to be well-engaged, Expressed Gratitude for Visit Planning for Future Visits: PRN, Pt aware to contact After School Counselor as needed 09/14/24 1300 Visit Background Visit With Patient Visit By Staff After School Counselor Visit Progression Introduction Visit Requested By After School Counselor Initiated Visit Source After School Counselor Initiated Visit Type Inpatient;Rounding Visit Circumstances and Events Routine Visit Visit Length (minutes) 15 Patient's Response to Pastoral Care Appeared to be well-engaged;Expressed Gratitude for Visit Visit Planning PRN;Pt aware to contact After School Counselor as needed Spiritual Assessment Not assessed during visit Orthodoxy Assessment Not assessed during this visit Family assessment provided? Not assessed during this visit Ariane Shea MA Staff After School Counselor Pastoral Care Department [facility] [phone] On-call [facility] PROGRESS NOTE Patient Name: Gricel Patel : [...] Intake/Output Summary (Last 24 hours) at 2024 0969 Last data filed at 2024 1140 Gross [...] left base, unchanged. No new process identified. [employer] Workstation ID: [id number] XR Chest 1 View [...] left base, unchanged. No new process identified. [employer] Workstation ID: [id number] Chest Tube Right Final Result Image guided right chest tube placement (24 Argentine Thal quick) PROCEDURE: INTRAVENOUS MODERATE SEDATION AND MONITORING. IMAGE GUIDED PLACEMENT OF RIGHT CHEST TUBE PHYSICIAN: Deanna Valdes D.O. [facility] [address] [place] [address] (O) [phone] (F) [phone] ANESTHESIA: Intravenous moderate sedation with continuous physiological [...] over the wire to advance a 24 Argentine without quick catheter into the abscess cavity and confirmed to be in appropriate position on post placement fluoroscopic images. Catheter was sutured in place with 0 Prolene pursestring suture, sterile dressings were placed and the catheter was connected to a pleur-evac system. Workstation ID: [id number] CT Chest Without Contrast Final Result 1. There is a decrease bfcfh-st-vyefcpzg right-sided hydropneumothorax compared to 09/07/2024 but similar to recent x-ray 09/09/2024. Previous small bore right pleural drain has backed out of the pleural space along the right chest wall. 2. Bilateral pulmonary opacities suggesting atelectasis. Superimposed pneumonia is not excluded. 3. Prior granulomatous disease. [facility]/lab Workstation ID: [id number] XR Chest 1 View Final Result Right mxq-hp-kctvw chest pigtail catheter in place. Possible underlying [...] at this time. Assessment and Background Information: [facility] PROGRESS NOTE Patient Name: Gricel Patel : [...] Image guided right chest tube placement (24 Argentine Thal quick) PROCEDURE: INTRAVENOUS MODERATE SEDATION AND MONITORING. IMAGE GUIDED PLACEMENT OF RIGHT CHEST TUBE PHYSICIAN: Deanna Valdes D.O. [facility] [address] [place] [address] (O) [phone] (F) [phone] ANESTHESIA: Intravenous moderate sedation with continuous physiological [...] over the wire to advance a 24 Argentine without quick catheter into the abscess cavity and confirmed to be in appropriate position on post placement fluoroscopic images. Catheter was sutured in place with 0 Prolene pursestring suture, sterile dressings were placed and the catheter was connected to a pleur-evac system. Workstation ID: [id number] CT Chest Without Contrast Final Result 1. There is a decrease ddrzn-if-tzfqcslx right-sided hydropneumothorax compared to 09/07/2024 but similar to recent x-ray 09/09/2024. Previous small bore right pleural drain has backed out of the pleural space along the right chest wall. 2. Bilateral pulmonary opacities suggesting atelectasis. Superimposed pneumonia is not excluded. 3. Prior granulomatous disease. [facility]/lab Workstation ID: [id number] XR Chest 1 View Final Result Right kep-kv-trqgf chest pigtail catheter in place. Possible underlying [...] for discharge needs. Assessment and Background Information: [facility] PROGRESS NOTE Patient Name: Gricel Patel : [...] Gricel Patel Date of : 1985 Site: [facility] Provider: Celia Bennett CNP ASSESSMENT/PLAN: Gricel Patel [...] communication from them. Assessment and Background Information: [facility] PROGRESS NOTE Patient Name: Gricel Patel : [...] provides the name Melvi Swanson with the [facility]. Prudence Tate, PETRA to place call to clinic to obtain an appointment with them at discharge. Assessment and Background Information: PULMONOLOGY PROGRESS 09/10/2024 Patient: Gricel Patel Date of : 1985 Site: [facility] Provider: Claude Cosby CNP ASSESSMENT/PLAN: Gricel Patel [...] old if applicable). I agree with the APRITA history, physical exam, and assessment and plan, [...] the capacity to be able to expand. [facility] PROGRESS NOTE Patient Name: Gricel Patel : [...] right side Psych: normal mood and affect [facility] PROGRESS NOTE Patient Name: Gricel Patel : [...] Gricel Patel Date of : 1985 Site: [facility] Provider: Claude Cosby CNP ASSESSMENT/PLAN: Gricel Patel [...] Will consult IR for replacement chest tube [facility] PROGRESS NOTE Patient Name: Gricel Patle : 1985 Assessment and Plan Gricel Patel [...] mood and affect documented in this encounter [facility] 09-16-2024 Note HMS DISCHARGE SUMMAR Y -- [facility] Gricel Patel : 1985 Admitted: 09/07/2024 Discharge [...] Physician(s) Follow Up: Chandu Mathew MD [address] [facility] [address] Follow up on 12/06/[address] Mathew on 12/06/2024 at 9am. Russ Carmen MD [address] [facility] [id number] Follow up in 3 week(s) Call the [...] AUTHENTICATED BY MONSE GONSALES, ON 09/16/2024 16:34:15 [facility] 09-16-2024 Hospital course Narrative [facility] DISCHARGE SUMMARY -- [facility] Gricel Patel : 1985 Admitted: 09/07/2024 Discharge [...] Follow Up: Chandu Mathew MD [address] [place] [id number] Follow up on 12/06/[address] Mathew on 12/06/2024 at 9am. Russ Carmen MD [address] [place] [id number] Follow up in 3 week(s) Call the [...] 09/16/24, 4:34 PM documented in this encounter [facility] 09-16-2024 Progress note Formatting of t his note might be different from the original. AM chest xray reviewed. Right sided chest tube has been to water seal x 24 hours with minimal drainage. Chest tube removed. Patient tolerated well. Repeat CXR at 1400. Case discussed with Dr. Ambrocio Ford on 09/15/2024 by PITA Pearson with recommendations for senior living antibiotics, repeat chest imaging, and follow up [...] Discussed with hospitalist provider, Shreya Gonsales CNP. [facility] 09-16-2024 Miscellaneous Notes AM chest xray reviewed. Right sided chest tube has been to water seal x 24 hours with minimal drainage. Chest tube removed. Patient tolerated well. Repeat CXR at 1400. Case discussed with Dr. Ambrocio Ford on 09/15/2024 by PITA Pearson with recommendations for senior living antibiotics, repeat chest imaging, and follow up [...] Chest tube clamped. Pt instructed to reposition [id number]. Will unclamp in 1 hour. 1315 Chest [...] Sera Ruiz RRT documented in this encounter [facility] 09-16-2024 Note Patient Name: Eric Patel Admit Date: 6130501 MR #: [id number] : 1985 Physicians: Krystle, Physician (Family); Randy [...] follow with you. I discussed with the food beverage supervisor Dr. Johnson management plan. I discussed with [...] excoriations Musculoskeletal: No joint swelling, non tender HEAD GRINDER: Awake, and Ox3 Wound: Samuel Catheter: IV [...] device along the lower chest remains unchanged. [email or web address] Workstation ID: [id number] XR Chest 1 View [...] fissure. Small pneumothorax component is unchanged. 2. Khur-rf-tlejydtc infiltrative changes and atelectasis in the right lower lobe and right middle lobe, unchanged. Ongoing pneumonia/inflammatory airways disease in this area is a consideration. 3. Minimal atelectasis in the left lower lobe. [employer] Workstation ID: [id number] CT Chest Without Contrast Final Result 1. Right chest tube tip positioned in the medial right cardiophrenic region with significant improvement in the right-sided hydropneum (more content not included)... [facility] 09-15-2024 Plan of care note Problem: Actual [...] Absence of pressure injury Outcome: Partially Met [facility] 09-15-2024 Note Pulmonary-Critical C are Progress [...] within the lef (more content not included)... [facility] 09-15-2024 Plan of care note Problem: Actual [...] Absence of pressure injury Outcome: Partially Met [facility] 09-15-2024 Progress note Formatting of t his note might be different from the original. CXR reviewed with R small apical PTX. R empyema appears to have worsened in comparison to previous imaging. Place chest tube to -20cm H2O. Will plan on additional dose of intrapleural lytic therapy. If patient is not responsive to intrapleural lytics patient will likely need transfer for VATS. [facility] 09-15-2024 Note HMS PROGRESS NOTE Patient [...] AUTHENTICATED BY CELIA BENNETT ON 09/15/2024 10:17:16 [facility] 09-15-2024 Progress note Formatting of t his [...] applicable Levels: Not applicable Moriah Watt RRT [facility] 09-14-2024 Plan of care note Problem: [...] Participation in care planning Outcome: Partially Met [facility] 09-14-2024 Consult note Formatting of th is note is different from the original. Patient Name: Gricel Patel MR #: [id number] : 1985 Physicians: Krystle, Physician (Family); Randy [...] no smoking.. Patient had initially presented at [facility], was found with some Nonspecific right pleural fluid and was transferred to [facility] for continuation of treatment. 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 Small pneumothorax component is unchanged. 2. Pwei-di-fpwuujfn infiltrative changes and atelectasis in the right lower lobe and right middle lobe, unchanged. Ongoing pneumonia/inflammatory airways disease in this area is a consideration. 3. Minimal atelectasis in the left lower lobe. [employer] Workstation ID: [id number] CT Chest Without Contrast [...] Minimal atelectasis in the left lower lobe. [employer] Workstation ID: [id number] XR Chest 1 View [...] Image guided right chest tube placement (24 Argentine Thal quick) PROCEDURE: INTRAVENOUS MODERATE SEDATION AND MONITORING. IMAGE GUIDED PLACEMENT OF RIGHT CHEST TUBE PHYSICIAN: Deanna Valdes D.O. [facility], [place] [address] (O) [phone] (F) [phone] ANESTHESIA: Intravenous moderate sedation with continuous physiological [...] over the wire to advance a 24 Argentine without quick catheter into the abscess cavity and confirmed to be in appropriate position on post placement fluoroscopic images. Catheter was sutured in place with 0 Prolene pursestring suture, sterile dressings were placed and the catheter was connected to a pleur-evac system. Workstation ID: [id number] CT Chest Without Contrast Final Result 1. There is a decrease sjsfi-ti-qsfsiycv right-sided hydropneumothorax compared to 09/07/2024 but similar to recent x-ray 09/09/2024. Previous small bore right pleural drain has backed out of the pleural space along the right chest wall. 2. Bilateral pulmonary opacities suggesting atelectasis. Superimposed pneumonia is not excluded. 3. Prior granulomatous disease. [facility] Workstation ID: [id number] XR Chest 1 View Final Result Right aji-zg-nqsxk chest pigtail catheter in place. Possible underlying [...] follow with you. I discussed with the food beverage supervisor Dr. Johnson management plan. I discussed with [...] 0 Homeless in the Last Year: No [email or web address] Work Phone: 09-14-2024 Consult note Formatting of th is note is different from the original. Patient Name: Gricel Patel MR #: [id number] : 1985 Physicians: No, Physician (Family); Randy [...] no smoking.. Patient had initially presented at [facility], was found with some Nonspecific right pleural fluid and was transferred to [facility] for continuation of treatment. 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 Small pneumothorax component is unchanged. 2. Gtyc-ie-yzazesqk infiltrative changes and atelectasis in the right lower lobe and right middle lobe, unchanged. Ongoing pneumonia/inflammatory airways disease in this area is a consideration. 3. Minimal atelectasis in the left lower lobe. [employer] Workstation ID: [id number] CT Chest Without Contrast [...] Image guided right chest tube placement (24 Argentine Thal quick) PROCEDURE: INTRAVENOUS MODERATE SEDATION AND MONITORING. IMAGE GUIDED PLACEMENT OF RIGHT CHEST TUBE PHYSICIAN: Deanna Valdes D.O. [facility] [address] [place] [address] (O) [phone] (F) [phone] ANESTHESIA: Intravenous moderate sedation with continuous physiological [...] over the wire to advance a 24 Argentine without quick catheter into the abscess cavity and confirmed to be in appropriate position on post placement fluoroscopic images. Catheter was sutured in place with 0 Prolene pursestring suture, sterile dressings were placed and the catheter was connected to a pleur-evac system. Workstation ID: [id number] CT Chest Without Contrast Final Result 1. There is a decrease hkdmy-zl-xnzpnzmu right-sided hydropneumothorax compared to 09/07/2024 but similar to recent x-ray 09/09/2024. Previous small bore right pleural drain has backed out of the pleural space along the right chest wall. 2. Bilateral pulmonary opacities suggesting atelectasis. Superimposed pneumonia is not excluded. 3. Prior granulomatous disease. [facility]/lab Workstation ID: [id number] XR Chest 1 View Final Result Right vdb-er-cfzai chest pigtail catheter in place. Possible underlying catheter retraction compared to 09/08/2024. Tip may be in the extrapleural space. Small right hydropneumothorax. Pleural separation at the lateral aspect of the right mid chest measures up to 9 mm. Results were called by Dr. Eric Rayo to [facility] on 09/09/2024 at 0920. /[facility] Workstation ID: [id number] XR Chest 1 View [...] follow with you. I discussed with the food beverage supervisor Dr. Johnson management plan. I discussed with [...] Patient has no PCP, she is from [place] and presents with FMLA paper work. Explained [...] RADIOLOGY Vascular & Interventional Radiology Provided By [facility] (Diagnostic Radiology, Interventional and Neurointerventional Radiology and Vascular Medicine) Interventional Radiology Department @ : [phone] 17/10 VIR physician contact: [phone]) Weekday VIR ARPITA contact @ [facility]: [phone] [facility]: [phone] [email or web address] [email or web address] [employer] The consult was reviewed. The patient's [...] TBD by the VIR control desk @ [phone], once pertinent labs and anticoagulant medications have [...] dilation, stone removal) Venous interventions: intrathoracic and HEAD GRINDER intervention PT/INR < 1.5 - 1.8 (if [...] Gricel Patel Date of : 1985 Site: [facility] Referring Provider: Refer to consult order in [...] a 2 week long respiratory infection around Eleva time. She never seeked any medical care [...] medications on file. documented in this encounter [facility] 09-14-2024 Note Pulmonary-Critical C are Progress [...] a small calc (more content not included)... [facility] 09-14-2024 Plan of care note Problem: [...] Participation in care planning Outcome: Partially Met [facility] 09-14-2024 Note HMS PROGRESS NOTE Patient [...] AUTHENTICATED BY CARO KRUGER, ON 09/14/2024 10:03:18 [facility] 09-14-2024 Progress note Formatting of t his [...] applicable Levels: Not applicable Moriah Watt RRT [facility] 09-14-2024 Plan of care note [...] level of psychosocial functioning Outcome: Partially Met [facility] 2024 Plan of care note [...] level of psychosocial functioning Outcome: Partially Met [facility] 2024 Note Pulmonary-Critical C are [...] supraspinatus tendon. Impression (more content not included)... [facility] 2024 Progress note Formatting of t his note might be different from the original. AM CXR reviewed with significant improvement noted. Intrapleural lytic therapy administered to right chest tube. Chest tube clamped. Patient instructed to turn from side to side q15 minutes. Patient tolerated well. 1335: Chest tube unclamped. -20cm suction. Draining serosanguinous fluid. Plan for CT chest in AM to re-evaluate empyema. [facility] 2024 Note [facility] PROGRESS NOTE Patient Name: Gricel Patel : [...] AUTHENTICATED BY CARO KRUGER, ON 2024 12:05:10 [facility] 09-12-2024 Plan of care note Problem: Actual [...] level of psychosocial functioning Outcome: Partially Met [facility] 09-12-2024 Note Pulmonary-Critical C are Progress [...] along the m (more content not included)... [facility] 09-12-2024 Progress note Formatting of t his note might be different from the original. AM CXR reviewed with mild improvement. 2nd dose of lytic therapy administered to right chest tube. Chest tube clamped. Pt instructed to reposition [id number]. Will unclamp in 1 hour. 1315 Chest tube unclamped, to suction -20cm. Draining serous/purulent fluid. Patient tolerating well. Repeat CXR in AM to re-assess empyema and need for continued lytic therapy. [facility] 09-12-2024 Note HMS PROGRESS NOTE Patient [...] AUTHENTICATED BY CARO KRUGER, ON 09/12/2024 10:13:52 [facility] 09-11-2024 Note Attestation signed by Bryan Johnson [...] Gricel Patel Date of : 1985 Site: [facility] Provider: Celia Bennett CNP ASSESSMENT/PLAN: Gricel Jorge [...] [78-93] 93 Res (more content not included)... [facility] 09-11-2024 Progress note Formatting of t his note might be different from the original. Intrapleural lytics administered to right chest tube. CT clamped. Patient tolerated well. Instructed to rotate q15 minutes. Will unclamp in 1 hour. 1405: Chest tube unclamped with -20cm continuous suction. 125ml immediately drained. Patient tolerated well. [facility] 09-11-2024 Note HMS PROGRESS NOTE Patient [...] AUTHENTICATED BY CARO KRUGER, ON 09/11/2024 11:29:39 [facility] 09-10-2024 Note Attestation signed by Chandu Mathew [...] Gricel Patel Date of : 1985 Site: [facility] Provider: Claude Cosby CNP ASSESSMENT/PLAN: Gricel Patel [...] [x] Labs r (more content not included)... [facility] 09-10-2024 Note [facility] PROGRESS NOTE Patient Name: Gricel Patel : [...] AUTHENTICATED BY CARO KRUGER ON 09/10/2024 11:32:16 [facility] 09-10-2024 Note Vascular & Intervent ional Radiology Provided By [facility] (Diagnostic Radiology, Interventional and Neurointerventional Radiology and Vascular Medicine) Interventional Radiology Department @ : [phone] CT Procedures @ : [phone] [place] Procedures @ : [phone] [email or web address] [email or web address] [employer] PROCEDURE: 24 fr right chest tube [...] AUTHENTICATED BY DEANNA VALDES, ON 09/10/2024 09:48:48 [facility] 09-10-2024 Procedure note Vascular & Interventional Radiology Provided By [facility] (Diagnostic Radiology, Interventional and Neurointerventional Radiology and Vascular Medicine) Interventional Radiology Department @ : [phone] CT Procedures @ : [phone] [place] Procedures @ : [phone] [email or web address] [email or web address] [employer] [employer] PROCEDURE: 24 fr right chest tube placement FINDINGS: Loculated effusion Light red fluid with debri PLAN: Suction Defer to surgery for tpa/meds/cultures Date: 09/10/24 Patient Name: Gricel Patel Patient : 1985 Physician: Deanna Valdes DO [place] Protocol: Pre-Procedural verification: Correct patient, correct site and correct procedure confirmed. H&P or interval update complete and in medical record. Informed consent form completed and signed. Radiology images, labs and pathology reviewed with appropriate identifiers (when applicable). Site Marking: N/A Time Out: PERFORMED Complications: None Full report to follow [facility] 09-10-2024 Procedure note Vascular & Interventional Radiology Provided By [facility] (Diagnostic Radiology, Interventional and Neurointerventional Radiology and Vascular Medicine) Interventional Radiology Department @ : [phone] CT Procedures @ : [phone] [place] Procedures @ : [phone] [email or web address] [facility] [employer] PROCEDURE: 24 fr right chest tube placement FINDINGS: Loculated effusion Light red fluid with debri PLAN: Suction Defer to surgery for tpa/meds/cultures Date: 09/10/24 Patient Name: Gricel Patel Patient : 1985 Physician: Deanna Valdes DO [place] Protocol: Pre-Procedural verification: Correct patient, correct site [...] Gricel Patel Admit Date: 6130501 MR #: [id number] : 1985 Sedation Plan: No Sedation - local anesthesia with lidocaine Paisley Protocol: 1. Pre-procedure verification: - Correct patient, [...] Minimal Complications: None documented in this encounter [facility] 09-10-2024 History and physical note I have reviewed the animal nutrition consultant H&P, consult and reviewed the findings and imaging. I agree with the consultation note. MP: 3 ASA: 3 Will plan to right chest tube placement [facility] Work Phone: 09-10-2024 Note I have reviewed the animal nutrition consultant H&P, consult and reviewed the findings and imaging. I agree with the consultation note. MP: 3 ASA: 3 Will plan to right chest tube placement AUTHENTICATED BY DEANNA VALDES, ON 09/10/2024 08:55:32 [facility] 09-10-2024 History and physical note I have reviewed the animal nutrition consultant H&P, consult and reviewed the findings and imaging. I agree with the consultation note. MP: 3 ASA: 3 Will plan to right chest tube placement [facility] HISTORY AND PHYSICAL -- [facility] Patient Name: Gricel Patel : 1985 MR #: [id number] Admit Date: 09/07/2024 Physicians: Krystle, Physician (Family); [...] pleuritic pain. Received 1 L bolus at [facility] ER, will give another liter and [...] hospital or ED yes -- care site [facility] Quality Measures DVT Prophylaxis: lovenox [...] Smokeless Tobacco Never documented in this encounter [facility] 09-09-2024 Consult note Associated Order (s): [...] Patient has no PCP, she is from [place] and presents with FMLA paper work. Explained [...] deliver your care?: No Chronic pain:: No [facility] 09-09-2024 Consult note Associated Order (s): IP CONSULT TO INTERVENTIONAL RADIOLOGY Vascular & Interventional Radiology Provided By [facility] (Diagnostic Radiology, Interventional and Neurointerventional Radiology and Vascular Medicine) Interventional Radiology Department @ : [phone] 17/10 [facility] physician contact: [phone]) Weekday VIR ARPITA contact @ [facility]: [phone] [facility]: [phone] [email or web address] [facility] [employer] [employer] The consult was reviewed. The patient's [...] Procedure date and time TBD by the [employer] control desk @ [phone], once pertinent labs and anticoagulant medications have [...] dilation, stone removal) Venous interventions: intrathoracic and HEAD GRINDER intervention PT/INR < 1.5 - 1.8 (if [...] Rodriguez MD at 09/09/2024 3:22 PM EDT [facility] Work Phone: 09-09-2024 Progress note Formatting [...] requiring new chest tube. IR consult placed. [facility] 09-09-2024 Note HMS PROGRESS NOTE Patient [...] AUTHENTICATED BY CARO KRUGER, ON 09/09/2024 11:36:18 [facility] 09-09-2024 Plan of care note Problem: Actual [...] level of psychosocial functioning Outcome: Partially Met [facility] 09-09-2024 Progress note Formatting of t [...] bundle re assess 09/10 TROY HALL RRT [facility] 09-09-2024 Note Attestation signed by Chandu [...] Gricel Patel Date of : 1985 Site: [facility] Provider: Claude Cosby CNP ASSESSMENT/PLAN: Gricel Patel [...] no focal lymphaden (more content not included)... [facility] 09-08-2024 Note Formatting of this n ote [...] treatment will depend on drainage. DISPO: TBD [facility] 09-08-2024 Note Seldinger Chest Tube Insertion Procedure Note Patient Name: Gricel Patel Admit Date: 6130501 MR #: [id number] : 1985 Sedation Plan: No Sedation - local anesthesia with lidocaine Paisley Protocol: 1. Pre-procedure verification: - Correct patient, [...] AUTHENTICATED BY CHANDU MATHEW ON 09/08/2024 13:08:44 [facility] 09-08-2024 Procedure note Katydinger Chest Tube Insertion Procedure Note Patient Name: Gricel Patel Admit Date: 6130501 MR #: [id number] : 1985 Sedation Plan: No Sedation - local anesthesia with lidocaine Paisley Protocol: 1. Pre-procedure verification: - Correct patient, [...] procedure Estimated Blood Loss: Minimal Complications: None [facility] Work Phone: 09-08-2024 Note [facility] PROGRESS NOTE Patient Name: Gricel Patel : [...] AUTHENTICATED BY MELANIE BOURGEOIS ON 09/08/2024 13:51:18 [facility] 09-08-2024 Consult note Associated Order (s): IP CONSULT TO PULMONOLOGY PULMONOLOGY CONSULT 09/08/2024 Patient: Gricel Patel Date of : 1985 Site: [facility] Referring Provider: Refer to consult order in [...] a 2 week long respiratory infection around Eleva time. She never seeked any medical care [...] MD No current outpatient medications on file. [facility] 09-07-2024 Plan of care note Problem: [...] level of psychosocial functioning Outcome: Partially Met [facility] 09-07-2024 Plan of care note Problem: [...] level of psychosocial functioning Outcome: Partially Met [facility] 09-07-2024 Progress note Formatting of t [...] applicable Levels: Not applicable Sera Ruiz RRT [facility] 09-07-2024 History and physical note [facility] HISTORY AND PHYSICAL -- [facility] Patient Name: Gricel Patel : 1985 MR #: [id number] Admit Date: 09/07/2024 Physicians: Krystle, Physician (Family); [...] pleuritic pain. Received 1 L bolus at [facility] ER, will give another liter and [...] hospital or ED yes -- care site [facility] Quality Measures DVT Prophylaxis: lovenox Samuel Catheter: [...] Every Day Types: Cigarettes Smokeless Tobacco Never [facility] 09-07-2024 Note HMS HISTORY AND [facility]YS [facility] -- [facility] Patient Name: Gricel Patel : 1985 MR #: [id number] Admit Date: 09/07/2024 Physicians: Krystle Physician (Family); [...] hospital or ED yes -- care site [facility] Quality Measures DVT Prophylaxis: lovenox [...] AUTHENTICATED BY KASSANDRA HINTON, ON 09/07/2024 15:30:20 [facility] 09-05-2024 Telephone encounter Note Patient notified of results, verbalized understanding. Patient stated not having eaten any food or drink yet the day she was seen, stressed importance of establishing with PCP to have labs redrawn as she had elevated glucose on fasting labs. Mac Lang MA [facility] 09-05-2024 Miscellaneous Notes Patient notified of results, [...] via telephone. Thanks documented in this encounter [facility] 09-05-2024 Telephone encounter Note Patient has not viewed mychart message sent related to results. Please reach out via telephone. Thanks [facility] Work Phone: 09-02-2024 Instructions Aurea Doss APRN.CNP - 09/02/2024 3:29 PM EDT Appears to be muscle strain Urine dip abnormal, will check CMP does not have PCP - will need referral if abnormal - NSAIDS- see orders - Muscle relaxant- see orders documented in this encounter [facility] 09-02-2024 Note HNO ID: [id number] Author: AUREA DOSS APRN.PITA Service: ? Author Type: Nurse Practitioner Type: Progress Notes Filed: 09/02/2024 15:30 Note Text: Subjective The history is provided by the patient. No director speech language was used. HPI Gricel Patel is a [...] or emesis. - Works third shift at [employer]; reports high consumption of Sprite and low [...] have confirmed and edited as necessary, the [facility] Review of Systems Constitutional: Negative for chills [...] detail warranting prompt ER evaluation. Aurea Doss APRN.[facility] 09-02-2024 History of Present illness Narrative Subjective The history is provided by the patient. No director speech language was used. HPI Gricel Patel is a [...] or emesis. - Works third shift at [employer]; reports high consumption of Sprite and low [...] have confirmed and edited as necessary, the [facility] Review of Systems Constitutional: Negative for chills [...] Aurea Doss APRN.CNP documented in this encounter [facility] Evaluation note Diagnosis Acute right-sided back pain, unspecified back location- Primary documented in this encounter [facility] note* Diagnosis Parapneumonic effusion- Primary Other specified forms of effusion, except tuberculous Parapneumonic effusion Other specified forms of effusion, except tuberculous Empyema lung (HCC) Empyema without mention of fistula documented in this encounter [facility] note* Diagnosis Pleural effusion- Primary Unspecified pleural effusion Anemia, unspecified type Encounter for health-related screening Generalized weakness Other malaise and fatigue Muscular deconditioning Muscular wasting and disuse atrophy, not elsewhere classified Tobacco abuse Tobacco use disorder Fatigue, unspecified type documented in this encounter [facility] note* Diagnosis Pleural effusion- Primary Unspecified pleural effusion documented in this encounter [facility] note* Diagnosis Pleural effusion- Primary Unspecified pleural effusion Generalized weakness Other malaise and fatigue Muscular deconditioning Muscular wasting and disuse atrophy, not elsewhere classified Fatigue, unspecified type [facility] Diagnosis Pleural effusion Unspecified pleural effusion documented in this encounter [facility] note* Diagnosis Pleural effusion Unspecified pleural effusion Anemia, unspecified type Generalized weakness Other malaise and fatigue Fatigue, unspecified type documented in this encounter [facility] note* Diagnosis Empyema (HCC)- Primary Empyema without mention of fistula documented in this encounter [facility] note* Diagnosis Empyema (HCC)- Primary Empyema without mention of fistula Empyema (HCC) Empyema without mention of fistula [facility] Diagnosis Empyema (HCC) Empyema without mention of fistula documented in this encounter [facility] note* Diagnosis Empyema (HCC)- Primary Empyema without mention of fistula Pleural effusion Unspecified pleural effusion documented in this encounter [facility] note* Diagnosis Chest pain on breathing Painful respiration documented in this encounter [facility] note* Diagnosis Chest pain on breathing- Primary Painful respiration Chest pain on breathing Painful respiration Pleural effusion Unspecified pleural effusion [facility] Diagnosis Empyema (HCC)- Primary Empyema without mention of fistula Tobacco abuse Tobacco use disorder Headache, unspecified headache type Fatigue, unspecified type documented in this encounter [facility] note* Diagnosis Headache, unspecified headache type documented in this encounter [facility] note* Diagnosis Pleuritic chest pain- Primary Painful [...] pain Painful respiration documented in this encounter [facility] note* Diagnosis Pleuritic chest pain Painful respiration [facility] Diagnosis Encounter for immunization- Primary Need for other specified prophylactic vaccination against single bacterial disease documented in this encounter [facility] note* Diagnosis Encounter for screening mammogram for breast cancer documented in this encounter [facility] for visit Narrative* Auth/Cert (Routine) Specialty Diagnoses / Procedures Referred By Venkat escudero Referred To Contact Diagnoses Parapneumonic effusion Parapneumonic effusion Referral ID Status Reason Start Date Expiration Date Visits Re quested Visits Authorized [id number] 1 1 [facility] for visit Narrative* Diagnostic Procedure Only (Routine) - Closed Specialty Diagnoses / Procedures Referred By Venkat escudero Referred To Contact [facility] Diagnoses Pleural effusion Anemia, unspecified type Generalized weakness Fatigue, unspecified type Procedures US DVT UPPER BILATERAL DUP-SCAN XTR VEINS COMPLETE BILATERAL STUDY Melvi Swanson MD [address] [place] [address] Phone: tel: fax: [place] [phone] Referral ID Status Reason Start Date Expiration Date V isits Requested Visits Authorized [id number] Closed Auto-Generate d Referral 10/02/2024 11/01/2025 1 1 [facility] for visit Narrative* MRI/CT (Urgent) - Closed Specialty Diagnoses / Procedures Referred By Venkat escudero Referred To Contact CT IMAGING Diagnoses Headache, unspecified headache type Procedures CT BRAIN WO IVCON CT HEAD/BRAIN W/O CONTRAST MATERIAL Melvi Swanson MD [address] [place] [address] Phone: tel: fax: [place] [phone] Referral ID Status Reason Start Date Expiration Date V isits Requested Visits Authorized [id number] Closed Auto-Generate d Referral 10/16/2024 11/15/2025 1 1 [facility] Advance Directives No Advanced Directives Records Found [...] or prosecute any alcohol or drug abuse patient.[facility] the event this information is protected by the Federal Confidentiality of Alcohol and Drug Abuse Patient Records regulations: The Federal rules restrict any use of the information to criminally investigate or prosecute any alcohol or drug abuse patient.[facility] the event this information is protected by the Federal Confidentiality of Alcohol and Drug Abuse Patient Records regulations: The Federal rules restrict any use of the information to criminally investigate or prosecute any alcohol or drug abuse patient.[facility] the event this information is protected by the Federal Confidentiality of Alcohol and Drug Abuse Patient Records regulations: The Federal rules restrict any use of the information to criminally investigate or prosecute any alcohol or drug abuse patient.[facility] the event this information is protected by the Federal Confidentiality of Alcohol and Drug Abuse Patient Records regulations: The Federal rules restrict any use of the information to criminally investigate or prosecute any alcohol or drug abuse patient.[facility] the event this information is protected by the Federal Confidentiality of Alcohol and Drug Abuse Patient Records regulations: The Federal rules restrict any use of the information to criminally investigate or prosecute any alcohol or drug abuse patient.[facility] the event this information is protected by the Federal Confidentiality of Alcohol and Drug Abuse Patient Records regulations: The Federal rules restrict any use of the information to criminally investigate or prosecute any alcohol or drug abuse patient.[facility] the event this information is protected by the Federal Confidentiality of Alcohol and Drug Abuse Patient Records regulations: The Federal rules restrict any use of the information to criminally investigate or prosecute any alcohol or drug abuse patient.[facility] the event this information is protected by the Federal Confidentiality of Alcohol and Drug Abuse Patient Records regulations: The Federal rules restrict any use of the information to criminally investigate or prosecute any alcohol or drug abuse patient.[facility] the event this information is protected by the Federal Confidentiality of Alcohol and Drug Abuse Patient Records regulations: The Federal rules restrict any use of the information to criminally investigate or prosecute any alcohol or drug abuse patient.[facility] the event this information is protected by the Federal Confidentiality of Alcohol and Drug Abuse Patient Records regulations: The Federal rules restrict any use of the information to criminally investigate or prosecute any alcohol or drug abuse patient.[facility] the event this information is protected by the Federal Confidentiality of Alcohol and Drug Abuse Patient Records regulations: The Federal rules restrict any use of the information to criminally investigate or prosecute any alcohol or drug abuse patient.[facility] the event this information is protected by the Federal Confidentiality of Alcohol and Drug Abuse Patient Records regulations: The Federal rules restrict any use of the information to criminally investigate or prosecute any alcohol or drug abuse patient.[facility] the event this information is protected by the Federal Confidentiality of Alcohol and Drug Abuse Patient Records regulations: The Federal rules restrict any use of the information to criminally investigate or prosecute any alcohol or drug abuse patient.[facility] the event this information is protected by the Federal Confidentiality of Alcohol and Drug Abuse Patient Records regulations: The Federal rules restrict any use of the information to criminally investigate or prosecute any alcohol or drug abuse patient.[facility] the event this information is protected by the Federal Confidentiality of Alcohol and Drug Abuse Patient Records regulations: The Federal rules restrict any use of the information to criminally investigate or prosecute any alcohol or drug abuse patient.[facility] the event this information is protected by the Federal Confidentiality of Alcohol and Drug Abuse Patient Records regulations: The Federal rules restrict any use of the information to criminally investigate or prosecute any alcohol or drug abuse patient.[facility] the event this information is protected by the Federal Confidentiality of Alcohol and Drug Abuse Patient Records regulations: The Federal rules restrict any use of the information to criminally investigate or prosecute any alcohol or drug abuse patient.[facility] the event this information is protected by the Federal Confidentiality of Alcohol and Drug Abuse Patient Records regulations: The Federal rules restrict any use of the information to criminally investigate or prosecute any alcohol or drug abuse patient.[facility] the event this information is protected by the Federal Confidentiality of Alcohol and Drug Abuse Patient Records regulations: The Federal rules restrict any use of the information to criminally investigate or prosecute any alcohol or drug abuse patient.[facility] the event this information is protected by the Federal Confidentiality of Alcohol and Drug Abuse Patient Records regulations: The Federal rules restrict any use of the information to criminally investigate or prosecute any alcohol or drug abuse patient.[facility] the event this information is protected by the Federal Confidentiality of Alcohol and Drug Abuse Patient Records regulations: The Federal rules restrict any use of the information to criminally investigate or prosecute any alcohol or drug abuse patient.[facility] the event this information is protected by the Federal Confidentiality of Alcohol and Drug Abuse Patient Records regulations: The Federal rules restrict any use of the information to criminally investigate or prosecute any alcohol or drug abuse patient.[facility] the event this information is protected by the Federal Confidentiality of Alcohol and Drug Abuse Patient Records regulations: The Federal rules restrict any use of the information to criminally investigate or prosecute any alcohol or drug abuse patient.[facility] the event this information is protected by the Federal Confidentiality of Alcohol and Drug Abuse Patient Records regulations: The Federal rules restrict any use of the information to criminally investigate or prosecute any alcohol or drug abuse patient.[facility] the event this information is protected by the Federal Confidentiality of Alcohol and Drug Abuse Patient Records regulations: The Federal rules restrict any use of the information to criminally investigate or prosecute any alcohol or drug abuse patient.[facility] the event this information is protected by the Federal Confidentiality of Alcohol and Drug Abuse Patient Records regulations: The Federal rules restrict any use of the information to criminally investigate or prosecute any alcohol or drug abuse patient.[facility] the event this information is protected by the Federal Confidentiality of Alcohol and Drug Abuse Patient Records regulations: The Federal rules restrict any use of the information to criminally investigate or prosecute any alcohol or drug abuse patient.[facility]In the event this information is protected by the Federal Confidentiality of Alcohol and Drug Abuse Patient Records regulations: The Federal rules restrict any use of the information to criminally investigate or prosecute any alcohol or drug abuse patient.[facility] the event this information is protected by the Federal Confidentiality of Alcohol and Drug Abuse Patient Records regulations: The Federal rules restrict any use of the information to criminally investigate or prosecute any alcohol or drug abuse patient.[facility] the event this information is protected by the Federal Confidentiality of Alcohol and Drug Abuse Patient Records regulations: The Federal rules restrict any use of the information to criminally investigate or prosecute any alcohol or drug abuse patient.[facility] the event this information is protected by the Federal Confidentiality of Alcohol and Drug Abuse Patient Records regulations: The Federal rules restrict any use of the information to criminally investigate or prosecute any alcohol or drug abuse patient.[facility] Reason for Visit (unrecogniz ed section and content) Reason Comments Back Pain Mid back pain x 4 da ys Reason Comments Results Patient Update Reason Comments Hospital F/U [facility] -09/16/24 Pleural effusion right lung Reason Comments Recheck pleural effusion Reason Comments Appointment Effusion Reason Comments Radiology CT Specialty Diagnoses / Procedures Referred By Contac t Referred To Contact RADIO CT SCAN [facility] Diagnoses Chest pain on breathing Procedures CTA CHEST (NONGATED) W IVCON PE CT ANGIOGRAPHY CHEST W/CONTRAST/NONCONTRAST Melvi Swanson MD [address] [place] [address] Phone: tel: fax: Cat Scan [address] [place] [address] Phone: tel: fax: Referral ID Status Reason Start Date Expiration Date V isits Requested Visits Authorized [id number] Closed Patient Cleared - Admin/Chairm an/Director advise [...] Provider: Mackenzie Arce RN)1951 (Stopped - Provider: Aprli Juares RN) 0012 (New Bag - Provider: [...] - Provider: Arminda Garcia, TECHNOLOGIST - Comment: [id number] ) naloxone (NARCAN) injection 0.1 mg(Linked Group [...] mL, Intravenous, Once in imaging, contrast, Per foreman or supervisor and operator (Radiology) for line patency check prior to contrast administration, Starting on 09/14/24 at 1244, For 1 dose 1306 (Given - Provider: Arminda Garcia TECHNOLOGIST) sodium chloride (PF) (NS) 0.9 % contrast line flush 80 mL (COMPLETED)(Linked Group 4) 80 mL, Intravenous, Once in imaging, contrast, Per foreman or supervisor and operator (Radiology), Starting on 09/14/24 at 1244, For [...] mL, Intravenous, Once in imaging, contrast, Per foreman or supervisor and operator (Radiology) for line patency check prior to contrast administration, Starting on 09/14/24 at 1244, For 1 dose And sodium chloride (PF) (NS) 0.9 % contrast line flush 80 mL (COMPLETED)Jump to med 80 mL, Intravenous, Once in imaging, contrast, Per foreman or supervisor and operator (Radiology), Starting on 09/14/24 at 1244, For 1 dose, 30 mL BEFORE contrast administration 50 mL AFTER contrast administration Care Teams (unrecognized sec tion and content) Corporate Sales Manager Relationship Specialty Start Date End Date No, Physician [facility] PCP - General 09/07/24 Corporate Sales Manager Relationship Specialty Start Date End Date Melvi Swanson MD [address] [place] [id number] PCP - General Internal Medicine/Pediatrics 10/02/24 Corporate Sales Manager Relationship Specialty Start Date End Date Melvi Swanson MD [address] [place] [id number] PCP - General Internal Medicine/Pediatrics 10/02/24 Corporate Sales Manager Relationship Specialty Start Date End Date Melvi Swanson MD [address] [place] [id number] PCP - General Internal Medicine/Pediatrics 10/02/24 Corporate Sales Manager Relationship Specialty [place] [address] [place] [id number] PCP - General Internal Medicine/Pediatrics 10/02/24 Corporate Sales Manager Relationship Specialty Start Date End Date Melvi Swanson MD [address] [place], [place] [id number] PCP - General Internal Medicine/Pediatrics 10/02/24 Corporate Sales Manager Relationship Specialty Start Date End Date Melvi Swanson MD [address] [place], [place] [id number] PCP - General Internal Medicine/Pediatrics 10/02/24 Corporate Sales Manager Relationship Specialty Start Date End Date Melvi Swanson MD [address] [place] [address] PCP - General Internal Medicine/Pediatrics 10/02/24 Corporate Sales Manager Relationship Specialty Start Date End Date Melvi Swanson MD [address] [place], [place] [phone] PCP - General Internal Medicine/Pediatrics 10/02/24 Corporate Sales Manager Relationship Specialty Start Date End Date Melvi Swanson MD [address] [place], [place] [id number] PCP - General Internal Medicine/Pediatrics 10/02/24 Corporate Sales Manager Relationship Specialty Start Date End Date Melvi Swanson MD [address] [place] [address] PCP - General Internal Medicine/Pediatrics 10/02/24 Corporate Sales Manager Relationship Specialty Start Date End Date Melvi Swanson MD [address] [place] [id number] PCP - General Internal Medicine/Pediatrics 10/02/24 Corporate Sales Manager Relationship Specialty Start Date End Date Melvi Swanson MD [address] [place] [address] PCP - General Internal Medicine/Pediatrics 10/02/24 Corporate Sales Manager Relationship Specialty Start Date End Date Melvi Swanson MD [address] [place] [address] PCP - General Internal Medicine/Pediatrics 10/02/24 Corporate Sales Manager Relationship Specialty Start Date End Date Melvi Swanson MD [address] [place] [address] PCP - General Internal Medicine/Pediatrics 10/02/24 Corporate Sales Manager Relationship Specialty Start Date End Date Melvi Swanson MD [address] [place] [address] PCP - General Internal Medicine/Pediatrics 10/02/24 Corporate Sales Manager Relationship Specialty Start Date End Date Melvi Swanson MD [address] [place] [address] PCP - General Internal Medicine/Pediatrics 10/02/24 Corporate Sales Manager Relationship Specialty Start Date End Date Melvi Swanson MD [address] [place] [address] PCP - General Internal Medicine/Pediatrics 10/02/24 Corporate Sales Manager Relationship Specialty Start Date End Date Melvi Swanson MD [address] [place], [place] [phone] PCP - General Internal Medicine/Pediatrics 10/02/24 Corporate Sales Manager Relationship Specialty Start Date End Date Melvi Swanson MD [address] [place], [place] [phone] PCP - General Internal Medicine/Pediatrics 10/02/24 Corporate Sales Manager Relationship Specialty Start Date End Date No, Physician [facility] PCP - General 09/07/24 Corporate Sales Manager Relationship Specialty Start Date End Date Melvi Swanson MD [address] [place] [address] PCP - General Internal Medicine/Pediatrics 10/02/24 INFORMATION SOURCE (unrecogn ized section and content) DATE CREATED AUTHOR 09/24/2024 [facility] DATE CREATED AUTHOR AUTHOR'S ORGANIZ ATION 09/25/2024 [facility] DATE CREATED AUTHOR AUTHOR'S ORGANIZ ATION 10/11/2024 [facility] DATE CREATED AUTHOR AUTHOR'S ORGANIZ ATION 10/14/2024 [facility] DATE CREATED AUTHOR AUTHOR'S ORGANIZ ATION 01/03/2025 [facility] FOR RECORDS PERTAINING TO PATIENTS WHO ARE [...] BE BASED ON THE PRIMARY CLINICAL RECORDS. [employer] [facility]. provides no warranty or guarantee of the accuracy or completeness of information in this document.
[2025-02-09 13:47] VITALS: BMI 30.7
[2025-02-09 13:59] VITALS: BP 103/81; PULSE 58; RESP 16; TEMP 36.6; O2SAT 100
[2025-02-09] MEDS: Nicotine (PBKC) 21 MG Patch TD (15:34)
[2025-02-09 20:00] VITALS: BP 104/73; PULSE 73; RESP 16; TEMP 36.6; O2SAT 96
[2025-02-10] VITALS: BP 132/81; PULSE 57; RESP 16; TEMP 36.6; O2SAT 98
[2025-02-10 04:15] VITALS: BP 147/86; PULSE 56; RESP 16; TEMP 36.7; O2SAT 97
[2025-02-10] MEDS: hydrOXYzine PAM 25 MG Capsule 50 MG PO (06:45)
[2025-02-10 07:47] VITALS: BP 134/99; PULSE 73; RESP 16; TEMP 36.9; O2SAT 99
[2025-02-10 08:32] LABS: Anion Gap 17 (5-15); BUN 11 mg/dL (4-19); BUN/Creat Ratio 11.3 RATIO (10-20); Calcium,Total 9.6 mg/dL (7.6-11.0); Carbon Dioxide 23.4 mmol/L (21.0-32.0); Chloride 102 mmol/L (98-108); Estimated Creatinine Clearance 84.21 ml/min (50-250); Glucose 111 mg/dL (70-99); Potassium 3.3 mmol/L (3.3-5.1)
--- NOTE | 2025-02-10 09:21 | PN.HOSP_ITS ---
Subjective Subjective Cina score of 9, started the taper Objective Data Objective Data Vital Signs: Vital Signs Temp Pulse Resp BP Pulse Ox O2 Del Method 98.4 F 73 16 134/99 H 99 Room Air 02/10/25 07:47 02/10/25 07:47 02/10/25 07:47 02/10/25 07:47 02/10/25 07:47 02/10/25 07:47 Oxygen Delivery Method Room Air Weight: 185 lb Body Mass Index (BMI) 30.7 Intake & Output: Intake and Output for Last 24 Hours 02/09/25 02/10/25 02/11/25 03:59 03:59 03:59 Intake Total 700 / 700 300 / 300 Balance 700 / 700 300 / 300 Lab / Micro Data 02/09/25 11:06 02/10/25 06:38 Labs: Laboratory Results - last 24 hr 02/09/25 11:06: WBC 9.3, RBC 4.71, Hgb 14.2, Hct 43.1, MCV 91.5, MCH 30.1, MCHC 32.9, RDW Std Deviation 41.8, RDW Coeff of Chetan 12.4, Plt Count 282, MPV 10.0, Immature Gran % (Auto) 0.100, Neut % (Auto) 66.6, Lymph % (Auto) 26.8, [place] % (Auto) 5.9, Eos % (Auto) 0.2, Baso % (Auto) 0.4, Absolute Neuts (auto) 6.2, Absolute Lymphs (auto) 2.50, Nucleated RBC % 0, Sodium 143, Potassium 3.4, Chloride 101, Carbon Dioxide 27.9, Anion Gap 14, BUN 14, Creatinine 1.53 H, Estim Creat Clear Calc 56.14, Est GFR (MDRD) Non-Af 44 L, BUN/Creatinine Ratio 8.8 L, Glucose 131 H, Calcium 10.1, Total Bilirubin 0.63, AST 24, ALT 20, Alkaline Phosphatase 78, Total Protein 8.4, Albumin 4.3, Globulin 4.0, Albumin/Globulin Ratio 1.1, Serum , Qual NEGATIVE, Ethyl Alcohol < 10.1 02/09/25 11:18: Urine Color Yellow, Urine Clarity Clear, Urine pH 6.0, Ur Specific [place] 1.020, Urine Protein 100 H, Urine Glucose (UA) Normal, Urine Ketones 15 H, Urine Occult Blood 10 H, Urine Nitrite Negative, Urine Bilirubin 1 H, Urine Urobilinogen 1 H, Ur Leukocyte Esterase 25 H, Urine RBC 0 SEEN, Urine WBC 5-10 SEEN, Ur Squamous Epith Cells 0-5 SEEN, Urine Bacteria RARE, Hyaline Casts 0-5 SEEN, Urine Mucus 0 SEEN, Urine Opiates Screen PRESUMPTIVE POSITIVE, U Buprenorphine Qual NEGATIVE, Ur Oxycodone Screen NEGATIVE, Urine Methadone Screen NEGATIVE, Urine Fentanyl Screen PRESUMPTIVE POSITIVE, Ur Barbiturates Screen NEGATIVE, Ur Phencyclidine Scrn NEGATIVE, Ur Amphetamines Screen NEGATIVE, U Benzodiazepines Scrn PRESUMPTIVE POSITIVE, Urine Cocaine Screen NEGATIVE, U Cannabinoids Screen PRESUMPTIVE POSITIVE 02/10/25 06:38: Sodium 142, Potassium 3.3, Chloride 102, Carbon Dioxide 23.4, A nion Gap 17 H, BUN 11, Creatinine 0.95, Estim Creat Clear Calc 84.21, Est GFR (MDRD) Non-Af 77, BUN/Creatinine Ratio 11.3, Glucose 111 H, Calcium 9.6 Physical Exam Narrative General: Alert, Oriented x3, Cooperative, restless HEENT: Atraumatic, PERRLA, EOMI, Normocephalic Oral: Moist Mucosa Neck: Supple, No JVD Lungs: Clear to auscultation, Normal air movement, No rhonchi, No wheeze, No rales Cardiovascular: Regular rate, Regular Rhythm, Normal S1, Normal S2, No murmurs Abdomen: Soft, Non Tender, Non-Distended, No Hepato-splenomegaly Extremities: No edema, Capillary Refill Less than 3 Seconds Skin: No rashes, No breakdown Musculoskeletal: No Tenderness to Palpation of Joints or Extremities Neurological: No focal neurological deficits, moves all extremities Psych/Mental Status: Restless, anxious, tremor Assessment & Plan Assessment/Plan (1) Desire for detoxification: (2) Opiate addiction: PLAN: Plan 1. Opiate abuse requesting detox after recent overdose/tobacco abuse ? Continue with the opiate withdrawal protocol ? Will have her follow-up 180 ? Discussed tobacco cessation, she is smokes about a pack a day will place her on a nicotine patch 2. SHAUN ? On admission creatinine was 1.5, today at 0.95 indicating an SHAUN on admission which has resolved DVT: Ambulation Charges/Coding Visit Charges Inpatient E&M: 40219 Subs Hosp L2
[2025-02-10] MEDS: Nicotine (PBKC) 21 MG Patch TD (10:07)
--- NOTE | 2025-02-10 11:00 | CASEMGMT ---
Addendum entered by Madison Appiah 02/10/25 14:52: SW spoke with [place], [employer], who reports that pt is eligible for [facility]. [place] started the application process. NIKKO Vann Original Note: Social Work- SW not able to discuss SP status with pt at this time, as she is not able to freely converse d/t withdrawal symptoms. SW remains available to follow. NIKKO Vann
--- NOTE | 2025-02-10 11:09 | ADDICTION ---
Met with patient to discuss ramp assessments. Patient was awake but exhibited difficulty responding to questions. Likely related to medications administered for opioid withdrawal management. TW will continue monitoring patient?s cognitive response and medication effects. Clinician will reassess and complete RAMP assessments once patient is able to participate.
[2025-02-10 14:20] VITALS: BP 121/94; PULSE 87; RESP 16; TEMP 36.9; O2SAT 97
--- NOTE | 2025-02-10 15:16 | CHAPLAIN ---
Type of Pastoral Visit _x__ Initial Visit ___ Follow-up Visit ___ On-call Visit ___ General Patient Visit ___ Spiritual Assessment ___ Family Conference ___ Bereavement ___ Rapid Response ___ Code Blue ___ Other (describe below) Pastoral Care Referral From _x__ Patient ___ Family ___ Nurse ___ Physician ___ Cco ___ Hot Cell Technician ___ Other (describe below) Sacrament/Intervention _x__ Active listening ___ Anointing ___ Gnosticism ___ Bereavement ___ Communion _x__ Racquel exploration ___ _x__ Life review _x__ Prayer ___ Reconciliation ___ Sacrament of Sick _x__ Supportive presence ___ Wedding ___ Other (describe below) Pastoral Comments patient is willing to talk even though she is feeling ill; pt is expressive of wanting to quit the drugs; some life review given; pt has parents that are good people and supportive; pt does not have many goals for the future however; conversation included finding resources, people that are helpful, and racquel; pt welcomes presence and prayers
[2025-02-10 20:00] VITALS: BP 98/74; PULSE 78; RESP 16; TEMP 36.6; O2SAT 99
[2025-02-11 02:00] VITALS: BP 116/97; PULSE 86; RESP 16; TEMP 36.6; O2SAT 95
[2025-02-11 08:44] VITALS: BP 117/87; PULSE 71; RESP 16; TEMP 36.7; O2SAT 95
--- NOTE | 2025-02-11 09:27 | PCM.PN.HOSP ---
Subjective Subjective Feeling better than she did yesterday, she is completed the first day of buprenorphine Objective Data Objective Data Vital Signs: Vital Signs Temp Pulse Resp BP Pulse Ox O2 Del Method 98.1 F 71 16 117/87 H 95 Room Air 02/11/25 08:44 02/11/25 08:44 02/11/25 08:44 02/11/25 08:44 02/11/25 08:44 02/11/25 08:44 Oxygen Delivery Method Room Air Weight: 185 lb Body Mass Index (BMI) 30.7 Intake & Output: Intake and Output for Last 24 Hours 02/10/25 02/11/25 02/12/25 03:59 03:59 03:59 Intake Total 700 / 700 300 / 300 Balance 700 / 700 300 / 300 Lab / Micro Data 02/09/25 11:06 02/10/25 06:38 Physical Exam Narrative General: Alert, Oriented x3, Cooperative, fidgety HEENT: Atraumatic, PERRLA, EOMI, Normocephalic Oral: Moist Mucosa Neck: Supple, No JVD Lungs: Clear to auscultation, Normal air movement, No rhonchi, No wheeze, No rales Cardiovascular: Regular rate, Regular Rhythm, Normal S1, Normal S2, No murmurs Abdomen: Soft, Non Tender, Non-Distended, No Hepato-splenomegaly Extremities: No edema, Capillary Refill Less than 3 Seconds Skin: No rashes, No breakdown Musculoskeletal: No Tenderness to Palpation of Joints or Extremities Neurological: No focal neurological deficits, moves all extremities Psych/Mental Status: Restless, anxious Assessment & Plan Assessment/Plan (1) Desire for detoxification: (2) Opiate addiction: PLAN: Plan 1. Opiate abuse requesting detox after recent overdose/tobacco abuse ? Continue with the opiate withdrawal protocol ? Will have her follow-up 180 ? Discussed tobacco cessation, she is smokes about a pack a day will place her on a nicotine patch ? She was thinking that today was day 3 and that she would be able to go home however we reiterated the fact that she just completed the first day of buprenorphine and she is starting the second day this morning 2. SHAUN ? On admission creatinine was 1.5, improved to 0.95, indicating an SHAUN on admission this has resolved. DVT: Ambulation Charges/Coding Visit Charges Inpatient E&M: 15453 Subs Hosp L2
[2025-02-11] MEDS: Nicotine (PBKC) 21 MG Patch TD (11:13)
--- NOTE | 2025-02-11 12:13 | ADDICTION ---
Patients parents came in to request a document for the courts reporting that she was here in detox. Clinician informed family member that we would provide documents of completion at discharge. Parents informed clinician that she needs inpatient treatment. Discussed with parents their role in patients recovery process. Met with patient to complete RAMP assessments.Patient alert and oriented ?4 (A&O?4).Patient reports being sober for 5?6 years prior to relapse. States relapse occurred approximately 6 months ago following a medical procedure. Patient admitted to hospital for overdose. Reports having criminal charges related to relapse and driving while impaired. Patient not agreeable to inpatient treatment at this time. States willingness to engage in outpatient treatment only. Clinician provided outpatient treatment referrals and resources. This worker encouraged engagement with support systems and follow-up appointments.
--- NOTE | 2025-02-11 13:31 | CASEMGMT ---
Social Work SW provided resources to pt as pt is listed as self pay. Pt did also meet w/[place] from [employer]. SW provided information to pt on [employer], [facility], [facility], [facility] assist, prescription assistance programs, and information from [employer]. SW remains available for resources as needed. ALEK Monroy
[2025-02-11 21:00] VITALS: BP 128/78; PULSE 72; RESP 16; TEMP 36.6; O2SAT 98
[2025-02-11] MEDS: hydrOXYzine PAM 25 MG Capsule 50 MG PO (21:58)
[2025-02-12 03:00] VITALS: BP 130/76; PULSE 74; RESP 16; TEMP 36.6; O2SAT 97
[2025-02-12 09:28] VITALS: BP 116/94; PULSE 80; RESP 16; TEMP 37; O2SAT 99
--- NOTE | 2025-02-12 11:45 | DCINST_ITS ---
Discharge Instructions DC O2, CPAP, BIPAP needs Home O2 Discharge instructions: No Dressing / Incision Discharge Activity: Return to Normal Activity Weight Bearing Status: Full weight bearing Follow Up Care Test Results: Test results from this visit will be discussed in further detail at your follow- up appointment, if applicable. Discharge Plan Admission Admit Date/Time: 02/09/25 12:24 Primary Reason for Your Visit: Opiate substance use disorder Attending Provider: Davis Gonzalez Primary Care Provider: Melvi Swanson Consulting Providers: Eliazar Motta Instructions Additional Instructions / Restrictions: Recommend you follow-up with outpatient detox services Discharge Orders/Prescriptions Prescriptions: No Action No Known Home Medications Referrals / Follow Up: Melvi Swanson MD [Primary Care Provider, Family Practice] - Within 1 Month Care Physician,No Primary [Non-Staff, Medical] Disposition Disposition (needs filled in before D/C Order can be placed): Home, Self Care
--- NOTE | 2025-02-12 11:47 | DS.PCM_ITS ---
Providers Date of Admission: 02/09/25 Date of Discharge: 02/12/25 Primary Care Physician: Dr. Melvi Swanson MD Reason For Visit: OPIATES Diagnosis Discharge Diagnosis (1) Desire for detoxification: Status: Inactive (2) Opiate addiction: Status: Inactive Code(s): F11.20 - Opioid dependence, uncomplicated Plan 1. Opiate withdrawal #2 opiate use disorder #3 acute kidney injury Medications at Discharge Home Medications No Known/Unobtainable [No Known Home Medications] 05/11/13 Hospital Course Operations None Procedures None Summary of Care Provided Minutes Spent on Discharge: 30 Hospital Course: 39-year-old white female was seen in the emergency room at [facility] requesting services for detox from heroin. Labs obtained in the emergency room revealed an elevated creatinine at 1.53, CBC was unremarkable, patient was admitted to [place] [address] and orders were entered using the opiate detox order set up. Patient was seen by addiction social media executive. Repeat labs showed the patient's creatinine to be 0.95. Patient declined to go into an inpatient residential detox program. On 02/12/2025, patient was seen and examined: On examination she appeared in good health and spirits, she does not appear to be in any distress. Vital signs as documented. Skin warm and dry and without overt rashes. Neck without JVD, thyroid appears normal, trachea is midline, neck is supple. Lungs clear, normal air movement was noted. Heart exam notable for regular rhythm, normal sounds and absence of murmurs, rubs or gallops. Abdomen unremarkable and without evidence of organomegaly, masses, or abdominal aortic enlargement, bowel sounds are present in all 4 quadrants, no abdominal tenderness was noted. Extremities nonedematous, no cyanosis was noted, no clubbing was noted. Neuro: Cranial nerves II through XII are grossly intact, no focal motor deficits were noted, sensation to light touch and pinprick is intact, motor exam 5/5 throughout. Psych: Patient is alert and oriented x3, she does not appear anxious or depressed, she does not appear agitated. Patient was discharged in stable condition on 02/12/2025 Weight / BMI Weight Weight: 83.915 kg Body Mass Index (BMI) 30.7 ABG / Lab / Microbiology Data 02/09/25 11:06 02/10/25 06:38 D/C Instructions Weight Bearing Status: Full weight bearing DC O2, CPAP, BIPAP Needs Home O2 Discharge instructions: No Meaningful Use Info Meaningful Use Meaningful Use Diagnoses (Choose all that apply): None applicable Discharge Plan Admission Admit Date/Time: 02/09/25 12:24 Primary Reason for Your Visit: Opiate substance use disorder Attending Provider: Davis Gonzalez Primary Care Provider: Melvi Swanson Consulting Providers: Eliazar Motta Instructions Additional Instructions / Restrictions: Recommend you follow-up with outpatient detox services Discharge Orders/Prescriptions Prescriptions: No Action No Known Home Medications Referrals / Follow Up: Melvi Swanson MD [Primary Care Provider, Family Practice] - Within 1 Month Care Physician,No Primary [Non-Staff, Medical] Disposition Disposition (needs filled in before D/C Order can be placed): Home, Self Care Charges/Coding Visit Charges Inpatient E&M: 98813 Disch Hosp
== END 2025-02-12 12:40 | disposition home or self-care (01) | DRG 897 ==
LOC: ED 12:28 → MS3 13:20
PROVIDERS: Admitting Provider Family Medicine; Emergency Provider Emergency Medicine; PCP Pediatrics; Visit Provider Internal Medicine
DX: F11.23 Opioid dependence with withdrawal (principal); N17.9 Acute kidney failure, unspecified; F17.200 Nicotine dependence, unspecified, uncomplicated
CPT/HCPCS: 36415; 80048; 80053; 80307; 81001; 82077; 84703; 85025; 99283